=== PATIENT | female | born 1945 | race African-American/Black ===

== ENCOUNTER 2019-08-14 08:59 | Emergency (ER) | payer OTHER, MEDICARE ==
[2019-08-14 09:13] VITALS: BP 142/72; PULSE 84; TEMP 98.5; BMI 34.0
--- NOTE | 2019-08-14 09:35 | PDOC ---
History of Present Illness - General Chief Complaint: Pain, Acute Stated Complaint: RT LEG PAIN Time Seen by Provider: 08/14/19 09:34 - History of Present Illness Initial Comments: 08/14/19 09:43 The patient is a 74 year old female with a history of CAD, GERD, Diverticulitis , HTN, HLD who presents for evaluation of right lower extremity swelling and pain. The patient reports a several day history of right lower extremity redness warmth and pain that has remained persistent prompting her presentation to the ED for further evaluation. She notes lower extremity edema as well that she states is slightly worse than her normal baseline. She otherwise denies fevers, chills, SOB, chest pain, nausea, vomiting, abdominal pain, or changes with urination or bowel movements. Past History - Past Medical History Allergies/Adverse Reactions: Allergies Allergy/AdvReac Type Severity Reaction Status Date / Time Antihistamines - Alkylamine Allergy Verified 08/14/19 09:08 Iodinated Contrast Media Allergy Verified 08/14/19 09:08 [IV Dye, Iodine Containing Contrast ] Penicillins Allergy Verified 08/14/19 09:08 PAIN MEDICATIONS AdvReac Severe Vomiting Uncoded 08/14/19 09:08 Home Medications: Ambulatory Orders Allopurinol [Zyloprim -] 100 mg PO BID 01/16/12 Alprazolam [Alprazolam Odt] 0.5 mg PO PRN PRN 01/16/12 Aspirin [ASA -] 81 mg PO DAILY 01/16/12 Calcitriol 0.5 mcg PO WEEKLY 01/16/12 Calcium 250Mg/Vit-D 125 Units [Oscal 250 mg+D -] 6,000 mg PO DAILY 01/16/12 Levothyroxine [Synthroid -] 0.75 mcg PO ASDIR 01/16/12 Magnesium Oxide [Magnesium] 500 mg PO DAILY 01/16/12 Metoprolol Tartrate [Lopressor -] 50 mg PO DAILY 01/16/12 Potassium Bicarbonate/Cit AC [Potassium 25 Meq Tablet Eff] 20 meq PO DAILY 01/15 Acetaminophen [Tylenol .Extra-Strength -] 500 mg PO ASDIR PRN 03/16/14 Vit D3-Vit K/Berberine/Hops [Ostera Tablet] 1 each PO DAILY 03/16/14 Vitamin E 400 unit PO BID 03/16/14 Furosemide 80 mg PO DAILY 08/14/19 Icosapent Ethyl [Vascepa] 1 gm PO DAILY 08/14/19 Levothyroxine [Synthroid -] 150 mcg PO ASDIR 08/14/19 Pramipexole Di-HCl [Pramipexole ER] 0.75 mg PO DAILY 08/14/19 Sulfamethoxazole/Trimethoprim [Bactrim Ds -] 1 tab PO BID #14 tablet 08/14/19 Anemia: Yes (iron deficient) Asthma: No Cancer: No Cardiac Disorders: Yes CVA: No COPD: No CHF: No Dementia: No Diabetes: No GI Disorders: Yes (DIVERTICULOSIS, GERD, GASTRITIS) Disorders: No HTN: Yes Hypercholesterolemia: No Kidney Stones: Yes Liver Disease: Yes (hepatosplenomegaly, fatty liver) Seizures: No Thyroid Disease: Yes - Surgical History Abdominal Surgery: No Appendectomy: No Cardiac Surgery: No Cholecystectomy: No Lung Surgery: No Neurologic Surgery: No Orthopedic Surgery: No - Psycho Social/Smoking Cessation Hx Smoking Status: No Smoking History: Never smoked Have you smoked in the past 12 months: No Number of Cigarettes Smoked Daily: 0 Information on smoking cessation initiated: No Hx Alcohol Use: No Drug/Substance Use Hx: No Substance Use Type: None Review of Systems - Review of Systems Comments:: 08/14/19 09:45 Constitutional: No fevers, chills, fatigue, malaise HEENT: No Rhinorrhea, nasal congestion, visual changes Cardiovascular: No chest pain, syncope, palpitations, lightheadedness Respiratory: No Cough, SOB, Hemoptysis, Gastrointestinal: No Abdominal pain, Nausea, Vomiting, Constipation, Diarrhea, Melena Genitourinary: No Dysuria, Frequency, Urgency, Hesitancy, Hematuria, Flank pain Musculoskeletal: No Myalgia, arthralgia Skin: Right lower extremity redness. No rashes, itching, bruising, pallor Neurologic: No Headache, Dizziness, Numbness, Weakness, or Tingling Psychiatric: No Hallucinations. No SI or HI *Physical Exam - Vital Signs Last Vital Signs Temp Pulse Resp BP Pulse Ox 98.5 F 84 18 142/72 97 08/14/19 09:08 08/14/19 09:08 08/14/19 09:08 08/14/19 09:08 08/14/19 09:08 - Physical Exam 08/14/19 09:51 General Appearance: Nourished. No Apparent Distress HEENT: No Pharyngeal Erythema, Tonsillar Exudate, Tonsillar Erythema Neck: No Cervical Lymphadenopathy Respiratory/Chest: Lungs Clear, Normal Breath Sounds. No Crackles, Rales, Rhonchi, Wheezing Cardiovascular: Regular Rhythm, Regular Rate. No Murmur, Gallops, Rubs Gastrointestinal/Abdominal: Normal Bowel Sounds, Soft. No Guarding, Rebound, Tenderness Musculoskeletal: No CVA Tenderness Extremity: 1+ edema to the lower extremities bilaterally. Mild area of erythema and warmth to the anterior right ankle with tenderness to palpation. Normal Capillary Refill Integumentary: Normal Color, Dry, Warm Neurologic: Fully Oriented, Alert, Normal Mood/Affect, Normal Response, ED Treatment Course - LABORATORY CBC & Chemistry Diagram: 08/14/19 10:27 08/14/19 10:27 Medical Decision Making - Medical Decision Making 08/14/19 09:52 The patient is a 74 year old female with a history of CAD, GERD, Diverticulitis , HTN, HLD who presents for evaluation of right lower extremity swelling and pain. Given the patient's history and physical exam, we will obtain a duplex, cbc, cmp to evaluate further. We will continue to monitor and reassess while here in the ED. 08/14/19 11:25 CBC, cmp were unremarkable. US did not demonstrate evidence of a dvt as read by our radiologist. The patient's symptoms are likely due to a mild cellulitis. We are comfortable discharging the patient home in stable condition. Patient made aware of impression and plan, return precautions discussed including but not limited to worsening pain or symptoms, fevers, or signs of infection, chest pain, respiratory distress, inability to tolerate oral intake, dehydration, syncope, or neurologic changes. The patient is to follow up with PMD as recommended within 1 week, follow up information provided and the patient will call for an appointment. The patient is to take medications as instructed for duration of time and continue with supportive care , avoid triggers and precipitants. Patient is safe for outpatient follow-up. Discharge - Discharge Information Problems reviewed: Yes Clinical Impression/Diagnosis: Cellulitis Qualifiers: Site of cellulitis: unspecified site Qualified Code(s): L03.90 - Cellulitis, unspecified Condition: Stable Disposition: HOME - Admission No - Additional Discharge Information Prescriptions: Sulfamethoxazole/Trimethoprim [Bactrim Ds -] 1 tab PO BID #14 tablet - Follow up/Referral Referrals: Mukul Tesfaye MD [Primary Care Provider] - - Patient Discharge Instructions Patient Printed Discharge Instructions: DI for Cellulitis -- Adult Additional Instructions: 1) Please follow-up with your primary care doctor in the next 2-3 days. Please call tomorrow to schedule a follow up appointment. If you cannot follow up with your doctor within 1 week please return to the Emergency Department for any urgent issues. 2) Your laboratory / imaging results were normal here in the ER. 3) If you have any worsening of symptoms or any other concerns, please return to the ER immediately. Return if worsening symptoms including fevers, headache, vomiting, visual or hearing disturbances, abdominal pain, chest pain, shortness of breath, syncope, dehydration, inability to take things by mouth/vomiting, altered mental status, or worsening concerning symptoms. 4) Please continue taking your home medications as directed. Your medications on discharge include Bactrim . Side effects may include upset stomach, abdominal pain, vomiting, or diarrhea. Do not drink alcohol with your medications. - Post Discharge Activity
--- NOTE | 2019-08-14 09:47 | PDOC ---
Attending Attestation - Resident Resident Name: Landon Garcia - ED Attending Attestation I have performed the following: I have examined & evaluated the patient, The case was reviewed & discussed with the resident, I agree w/resident's findings & plan, Exceptions are as noted - HPI HPI: 08/14/19 09:45 74y F hx of htn, hl, MGUS, cad, gerd, diverticulitis, presents with 1 week of RLE swelling/redness and pain. Pt has swelling at baseline, but notes the swelling is worse now. denies any fever/chills, cp, sob, cough, hemoptysis, flores. Pt denies any trauma. Pt notes there is a spot of redness on the anterior justice that has not changed in the past week. Pt notes it is mildly tender in the red area. Denies any calf pain or tendereness. Exam: GENERAL: The patient is awake, alert, and fully oriented, Nontoxic - in no acute distress. HEAD: Normocephalic, atraumatic. EYES: extraocular movements intact, sclera anicteric, conjunctiva clear. ENT: Normal voice, Moist mucous membranes. NECK: Normal range of motion, supple LUNGS: Breath sounds equal, clear to auscultation bilaterally. No wheezes, no rhonchi, no rales. HEART: Regular rate and rhythm, normal S1 and S2 without murmur, rub or gallop. ABDOMEN: Soft, nontender, No guarding, no rebound. No CVA tenderness EXTREMITIES: Normal range of motion, b/l symmetric trace pitting edema, approximately 2 x 2 centimeter area of erythema and very mildly increased warmth on the medial aspect of the right lower anterior justice, there is no crepitus, fluctuance, masses, step-offs, bruising noted. Negative homans sign. no tenderness elsewhere. NEUROLOGICAL: No facial assymetry, Normal speech, moving all 4 extremities spontaneously and symmetrically PSYCH: Normal mood, normal affect. SKIN: Warm, Dry, normal turgor, I suspect that her symptoms may be secondary to a very mild cellulitis versus mild trauma. Based on her age will obtain ultrasound to screen for DVT as there is slight edema, no clinical signs suspicious for PE. If ultrasound is negative we will give the patient Keflex Will have patient follow-up with PMD - Physicial Exam PE: 08/14/19 11:39 see above - Medical Decision Making 08/14/19 11:39 The patient's blood work was reviewed The patient's ultrasound is negative for DVT We will discharge the patient with oral antibiotics and PMD follow-up Return precautions were discussed I discussed the physical exam findings, ancillary test results and final diagnoses with the patient. I answered all of the patient's questions. The patient was satisfied with the care received and felt comfortable with the discharge plan and treatment plan. The patient will call their primary care physician within 24 hours to arrange follow-up and will return to the Emergency Department with any new, persistent or worsening symptoms.
[2019-08-14 10:55] LABS: BASO % 0.2 % (0-2.0); EOS % 1.2 % (0-4.5); HEMOGLOBIN 10.8 GM/dL (10.7-15.3); MCH 33.3 pg (25.7-33.7); MCHC 33.8 g/dl (32.0-36.0); MEAN CELL VOLUME 98.5 fl (80-96); MEAN PLT VOLUME 8.4 fl (7.5-11.1); MONO % 8.5 % (3.8-10.2); NEUT % 64.1 % (42.8-82.8); PLATELET COUNT 192 K/MM3 (134-434); RBC 3.25 M/mm3 (3.60-5.2); RDW 15.2 % (11.6-15.6); WHITE BLOOD COUNT 5.6 K/mm3 (4.0-10.0)
[2019-08-14 11:22] LABS: ALBUMIN 3.2 g/dl (3.4-5.0); BILIRUBIN,TOTAL 0.9 mg/dL (0.2-1); BLOOD UREA NITROGEN 28.6 mg/dL (7-18); CALCIUM 9.2 mg/dL (8.5-10.1); CREATININE 0.9 mg/dL (0.55-1.3); POTASSIUM 4.2 mmol/L (3.5-5.1); TOT PROT 6.9 g/dl (6.4-8.2)
== END 2019-08-14 11:48 | disposition home or self-care (01) ==
LOC: JER 08:59
DX: L03.115 Cellulitis of right lower limb (principal); I25.10 Atherosclerotic heart disease of native coronary artery without angina pectoris; I10 Essential (primary) hypertension; E78.5 Hyperlipidemia, unspecified; K21.9 Gastro-esophageal reflux disease without esophagitis; D47.2 Monoclonal gammopathy; Z91.041 Radiographic dye allergy status; Z88.0 Allergy status to penicillin; Z88.6 Allergy status to analgesic agent
CPT/HCPCS: 36415; 80053; 85025; 93971-TC; 99284-25

== ENCOUNTER 2020-01-18 06:59 | Inpatient (IN) | payer OTHER, MEDICARE ==
[2020-01-07 12:31] VITALS: BMI 35.9
[2020-01-18] MEDS ORDERED: TRANEXAMIC ACID 1000 MG/10 ML VIAL IVPUSH ONE (07:10)
[2020-01-18] MEDS ORDERED: CELECOXIB 200 MG CAPSULE PO ONE (07:10)
[2020-01-18] MEDS ORDERED: CEFAZOLIN 3 GM in DEXTROSE 5%-WATER - 100 ML IVPB ONE (07:10)
[2020-01-18] MEDS ORDERED: VANCOMYCIN 1,000 MG VIAL (RESTRICTED TO ID ONLY) ONE (07:23)
[2020-01-18] MEDS ORDERED: ceFAZolin SODIUM 1 GM VIAL ONE ×3 (07:23→17:33)
--- NOTE | 2020-01-18 08:01 | HP ---
[facility]ellite [facility] - Chief Complaint Chief Complaint: left hip pain - Past Medical History Allergies/Adverse Reactions: Allergies Allergy/AdvReac Type Severity Reaction Status Date / Time Antihistamines - Alkylamine Allergy Verified 01/18/20 07:30 Iodinated Contrast Media Allergy Verified 01/18/20 07:30 [IV Dye, Iodine Containing Contrast ] Penicillins Allergy Verified 01/18/20 07:30 PAIN MEDICATIONS AdvReac Severe Vomiting Uncoded 01/18/20 07:30 - Current Medications Current Medications: Home Medications Medication Instructions Recorded Allopurinol [Zyloprim -] 100 mg PO BID 01/16/12 Alprazolam [Alprazolam Odt] 0.5 mg PO PRN PRN 01/16/12 Aspirin [ASA -] 81 mg PO DAILY 01/16/12 Calcitriol 0.5 mcg PO ASDIR 01/16/12 Calcium 250Mg/Vit-D 125 Units 3 tab PO QID 01/16/12 [Oscal 250 mg+D -] Levothyroxine [Synthroid -] 150 mcg PO ASDIR 01/16/12 Magnesium Oxide [Magnesium] 500 mg PO BID 01/16/12 Potassium Bicarbonate/Cit AC 20 meq PO BID 01/16/12 [Potassium 25 Meq Tablet Eff] Acetaminophen [Tylenol 500 mg PO ASDIR PRN 03/16/14 .Extra-Strength -] Levothyroxine [Synthroid -] 175 mcg PO ASDIR 08/14/19 Pramipexole Di-HCl [Pramipexole ER] 0.75 mg PO DAILY 08/14/19 Cyanocobalamin Vit B-12 Inj. 1,000 mcg IJ WEEKLY 01/07/20 [Redisol] Metoprolol Succinate 50 mg PO BID 01/07/20 Pramipexole Di-HCl [Mirapex ER] 1.5 mg PO HS 01/07/20 Pyridoxine HCl (B-6) [Vitamin B6] 100 mg PO DAILY 01/07/20 Torsemide 100 mg PO DAILY 01/07/20 Satellite Physical Exam - Physical Examination Vital Signs: Vital Signs Period Temp Pulse Resp BP Sys/Rubalcava Pulse Ox Last 24 Hr 98.7 F 82 18 126/60 97-97 General Appearance: Well Nourished, Well Developed, Alert & Oriented x3 ENT: Clear Lung: Normal air movement Extremities: Other (left hip - +ttp, decr rom, nvi, xrays show grade 4 hip djd) Neurological: Intact, Alert, Oriented Satellite Impression/Plan - Impression/Plan Impression: left hip djd Operative Procedure: left bobbi thr Date to be Performed: 01/18/20
[2020-01-18] MEDS ORDERED: MIDAZOLAM HCL 2 MG/2 ML SINGLE DOSE VIAL ONE ×3 (08:09→10:23)
[2020-01-18] MEDS ORDERED: DEXAMETHASONE SOD PHOSPHATE 4 MG/1 ML VIAL ONE (08:10)
[2020-01-18] MEDS ORDERED: BUPIVACAINE HCL/PF 0.5% (5MG/ML) 10 ML VIAL ONE ×2 (08:11→09:18)
[2020-01-18] MEDS ORDERED: ALPRAZOLAM 0.5 MG PO PRN (09:29)
[2020-01-18] MEDS ORDERED: LACTATED RINGERS SOLUTION 1,000 ML IV SCH ×2 (09:30→11:30)
[2020-01-18] MEDS ORDERED: ONDANSETRON 4 MG/2 ML VIAL IVPUSH PRN ×2 (09:30→11:20)
[2020-01-18] MEDS ORDERED: LEVOTHYROXINE NA 150 MCG TABLET PO SCH (09:30)
[2020-01-18] MEDS ORDERED: MAGNESIUM HYDROX 2400MG/30ML ORAL SUSPENSION 30 ML CUP PO PRN (09:30)
[2020-01-18] MEDS ORDERED: MAG HYDROX/AL HYDROX/SIMETH 30 ML UNIT-DOSE CUP PO PRN (09:30)
[2020-01-18] MEDS ORDERED: PROPOFOL 20 ML ONE (09:36)
[2020-01-18] MEDS ORDERED: SUCCINYLCHOLINE CHLORIDE 200 MG/10 ML SYRINGE ONE (09:36)
[2020-01-18] MEDS ORDERED: ePHEDrine SULFATE 50 MG/1 ML AMPULE ONE (09:46)
[2020-01-18] MEDS ORDERED: PHENYLEPHRINE HCL 10 MG/1 ML SINGLE DOSE VIAL ONE ×2 (09:48→09:49)
[2020-01-18] MEDS ORDERED: PATIENT'S OWN MEDICATION (NON-FORMULARY) (Magnesium Oxide [Magnesium] 500 MG) PO SCH (10:00)
[2020-01-18] MEDS ORDERED: [UNRECOGNIZED DRUG - OTHER] PO SCH (10:00)
[2020-01-18] MEDS ORDERED: PATIENT'S OWN MEDICATION (NON-FORMULARY) (Pramipexole Di-Hcl [Pramipexole Er] 0.75 MG) PO SCH (10:00)
[2020-01-18] MEDS ORDERED: TORSEMIDE 100 MG TABLET PO SCH (10:00)
[2020-01-18] MEDS ORDERED: TRANEXAMIC ACID 1000 MG/10 ML VIAL ONE (10:25)
[2020-01-18] MEDS ORDERED: VANCOMYCIN 1,000 MG VIAL (RESTRICTED TO ID ONLY) IVPB ONE (10:30)
[2020-01-18] MEDS ORDERED: oxyCODONE HCL 5 MG TABLET PO PRN (11:20)
[2020-01-18] MEDS: ACETAMINOPHEN 1000 MG/100 ML VIAL (NON FORMULARY) IVPB ONE ×2 (11:55→18:27)
--- NOTE | 2020-01-18 12:10 | OP ---
Operative Note - Note: Operative Date: 01/18/20 (jo-ann) Pre-Operative Diagnosis: left hip djd Operation: left bobbi thr Post-Operative Diagnosis: Same as Pre-op Surgeon: Orlando Castillo Teller Supervisor: Otis Harry Anesthesia: Spinal, Local Specimens Removed: femoral head, bone marrow aspirate Estimated Blood Loss (mls): 150
[2020-01-18] MEDS ORDERED: ALPRAZolam 0.25 MG TABLET PO PRN (12:40)
[2020-01-18] MEDS: oxyCODONE HCL 5 MG TABLET PO PRN ×2 (14:02→17:42)
[2020-01-18] MEDS ORDERED: DEXTROSE 5%-WATER 100 ML IVPB ONE (17:33)
[2020-01-18] MEDS: CEFAZOLIN 3 GM in DEXTROSE 5%-WATER 100 ML IVPB SCH (17:41)
[2020-01-18] MEDS: ACETAMINOPHEN 325 MG TABLET (FP) PO SCH ×2 (17:42→23:49)
[2020-01-18] MEDS: LEVOTHYROXINE 100 MCG, LEVOTHYROXINE 75 MCG PO SCH (18:28)
[2020-01-18] MEDS: PRAMIPEXOLE DIHYDROCHLORIDE 1 MG TABLET PO SCH (21:18)
[2020-01-18] MEDS: MAGNESIUM OXIDE 400 MG TABLET (FP) PO SCH (21:18)
[2020-01-18] MEDS: oxyCODONE HCL 10 MG SUSTAINED ACTING TABLET PO SCH (21:20)
[2020-01-18] MEDS: ALLOPURINOL 100 MG TABLET (FP) PO SCH (21:21)
[2020-01-18] MEDS: SENNOSIDES/DOCUSATE COMBO (SENNA PLUS) TABLET (UD) PO SCH (21:22)
[2020-01-18] MEDS ORDERED: PRAMIPEXOLE DI HCL 1.5 MG PO SCH (22:00)
[2020-01-19] MEDS ORDERED: ceFAZolin SODIUM 1 GM VIAL ONE (04:34)
[2020-01-19] MEDS ORDERED: DEXTROSE 5%-WATER 100 ML IVPB ONE (04:35)
[2020-01-19] MEDS: CEFAZOLIN 3 GM in DEXTROSE 5%-WATER 100 ML IVPB SCH (04:39)
[2020-01-19] MEDS: ACETAMINOPHEN 325 MG TABLET (FP) PO SCH ×4 (06:32→23:07)
[2020-01-19] MEDS ORDERED: LEVOTHYROXINE NA 75 MCG TABLET (FP) ONE (06:34)
[2020-01-19] MEDS ORDERED: LEVOTHYROXINE NA 100 MCG TABLET (FP) ONE (06:34)
[2020-01-19] MEDS: LEVOTHYROXINE 100 MCG, LEVOTHYROXINE 75 MCG PO SCH (06:35)
[2020-01-19] MEDS: PRAMIPEXOLE DIHYDROCHLORIDE 0.25 MG TABLET PO SCH (06:35)
[2020-01-19 07:50] LABS: HEMATOCRIT 26.6 % (32.4-45.2); HEMOGLOBIN 9.3 GM/dl (10.7-15.3); MCHC 34.7 g/dl (32.0-36.0); MEAN PLT VOLUME 7.9 fl (7.5-11.1); PLATELET COUNT 156 K/MM3 (134-434); RBC 2.72 M/mm3 (3.60-5.2); RDW 14.4 % (11.6-15.6); WHITE BLOOD COUNT 8.9 K/mm3 (4.0-10.8)
[2020-01-19] MEDS: ASPIRIN 325 MG TABLET PO SCH (08:05)
[2020-01-19] MEDS ORDERED: PT OWN MED DRAWER 7, Y5N ONE (10:27)
[2020-01-19] MEDS: TORSEMIDE 100 MG TABLET PO SCH (10:33)
[2020-01-19] MEDS: POTASSIUM CHLORIDE TABS 20 MEQ TABLET.ER (FP) PO SCH ×2 (10:33→21:04)
[2020-01-19] MEDS: ALLOPURINOL 100 MG TABLET (FP) PO SCH ×2 (10:34→21:09)
[2020-01-19] MEDS: SENNOSIDES/DOCUSATE COMBO (SENNA PLUS) TABLET (UD) PO SCH ×2 (10:34→21:04)
[2020-01-19] MEDS: MULTIVITAMINS (DAILY MVI) TABLET (FP) PO SCH (10:34)
[2020-01-19] MEDS: MAGNESIUM OXIDE 400 MG TABLET (FP) PO SCH ×2 (10:34→21:04)
[2020-01-19] MEDS: oxyCODONE HCL 10 MG SUSTAINED ACTING TABLET PO SCH ×2 (10:34→21:05)
--- NOTE | 2020-01-19 11:06 | PN ---
Progress Note (short form) - Note Progress Note: Ortho Pt seen and examined s/p left bobbi thr pod #1 Selected Entries 01/19/20 06:00 Temperature 97.7 F Pulse Rate 73 Respiratory 18 Rate Blood Pressure 132/47 L Laboratory Tests 01/19/20 07:10 WBC 8.9 Hgb 9.3 L Hct 26.6 L Plt Count 156 Dressing c/d/i, calf soft, nt nvi a/p PT hip precautions dvt ppx pain control d/c home tomorrow if stable
--- NOTE | 2020-01-19 12:30 | SPEC ---
DATE OF OPERATION: 01/18/2020 PREOPERATIVE DIAGNOSIS: Degenerative joint disease left hip. POSTOPERATIVE DIAGNOSIS: Degenerative joint disease left hip. PROCEDURE PERFORMED: Left total hip replacement with robotic-assisted navigation (MAKOplasty). SURGICAL ATTENDING: Orlando Castillo MD STATISTICAL TYPIST: AJ Cruz ANESTHESIA: Regional and spinal. CLOSURE: Tony total hip components with a 50 press-fit Trident II acetabular shell, a number 4 Accolade II press-fit femoral stem, a +3 MDM head and liner, number 1 Vicryl for fascia, 0 and 2-0 subcutaneous, 3-0 V-Loc for skin, 4-0 undyed Vicryl for pin sites. ESTIMATED BLOOD LOSS: Less than 100 mL. COMPLICATIONS: None. CONDITION: To the recovery room in stable condition. DESCRIPTION OF PROCEDURE: The patient was taken to the operating room on January 18, 2020. General and regional anesthesia was administered by the anesthesiologist. IV Kefzol and TXA were administered prophylactically prior to the case. The patient was placed in the lateral decubitus position will all prominences well-padded. The left hip area was prepped and draped in the usual sterile fashion. Using 3 small stab incisions over the iliac crest, 3 threaded pins were drilled in power fashion through the 2 tables of the crest. These pins were fastened and the navigation array for the Zay navigation system. Next, a 12 to 15-cm curved longitudinal incision over the posterolateral aspect of the greater trochanter was incised. Hemostasis was achieved with Bovie cautery. Sharp dissection was carried down to level of the fascia. The fascia was opened the entire length of the incision, spreading the fibers of the gluteus juan in the direction of origin. A Charnley retractor was placed in this layer. Care was taken not to impale the sciatic nerve. The short external rotators were detached off the insertion of the greater trochanter and peeled off the capsule. A posterior capsulotomy was then performed. A check point was malleted into the greater trochanter and a point on the inferior pole of the patella was obtained as well. These 2 points were used to assess the preoperative offset and limb lengths of the hip. The hip was then dislocated. The femoral neck was then osteotomized down to the appropriate level as directed by the navigation device. Anterior and posterior retractors were placed, exposing the acetabulum. A circumferential labral excision was performed. A check point was malleted into the acetabulum as well. Multiple sites inside the acetabulum and around the rim were utilized to register the acetabulum with the navigation device. An excellent registration of less than 0.5 mm was obtained. The hip was then reamed with the appropriate reamer down to the appropriate depth, with the appropriate orientation and version as assessed on our preoperative plan for this patient. The reamer was removed and the acetabulum was inspected to have good bleeding surfaces throughout. The real acetabular cup was then malleted down into place, with the holes in the appropriate position, until an excellent fixation was obtained. No screws were necessary. The navigation device ensured appropriate orientation and version, with the depth as predetermined. The appropriate liner was then clipped into place. Attention was directed to the femur. The proximal femur was prepared by use a box chisel, a canal finder and serial broaches until the broach achieved excellent rigidity in the proximal femur with the appropriate version being applied. A calcar planer was used to smooth off the calcar flush with the trial components. A trial reduction with the appropriate head was done, and the hip was reduced. The hip was taken through a range of motion from full extension with external rotation to marked flexion, and was stable at 90 degrees of flexion. It was stable to marked abduction and internal rotation, with a positive hang test and negative telescoping. Limb lengths were ascertained visually as well as with the navigation device to be within the targeted range for this patient. The trial component was removed. The real component was then malleted into place. The head was cold welded to the trunnion, and the hip was reduced. Range of motion, stability and limb lengths were as described in the trial component. Then the hip was pulse antibiotic irrigated. Vancomycin powder was placed in the hip joint. The capsule was closed. The fascia was then closed as well using number 1 Vicryl interrupted suture, 0 and 2-0 subcutaneous, and 3-0 V-Loc for the skin. 4-0 undyed Vicryl was used to close the pin sites after the pins were removed. All check points were also removed. Sterile Aquacel dressing was applied. The patient was awakened from anesthesia and transferred into the supine position. Bilateral SCDs and an abduction pillow were placed. X-rays revealed excellent position of the components. The patient was transferred to the recovery room in stable condition, with no complications. Estimated blood loss was less than 100 mL. Tila [id number]
--- NOTE | 2020-01-19 14:11 | PN ---
Progress Note (short form) - Note Progress Note: Pt pod #1 for Left THR under spinal plus pnb. Pt doing well -- c/o occasional throbbing pain, but able to participate w/ PT. Continue po pain meds, no complications 2/2 anesthesia.
[2020-01-19] MEDS: PRAMIPEXOLE DIHYDROCHLORIDE 1 MG TABLET PO SCH (21:03)
[2020-01-19] MEDS: traMADol HCL 50 MG TABLET PO PRN (21:05)
[2020-01-20] MEDS: ACETAMINOPHEN 325 MG TABLET (FP) PO SCH ×2 (05:06→12:00)
[2020-01-20] MEDS: traMADol HCL 50 MG TABLET PO PRN ×2 (05:06→09:32)
[2020-01-20] MEDS ORDERED: LEVOTHYROXINE NA 75 MCG TABLET (FP) ONE (05:12)
[2020-01-20] MEDS ORDERED: LEVOTHYROXINE NA 100 MCG TABLET (FP) ONE (05:12)
[2020-01-20] MEDS: LEVOTHYROXINE 100 MCG, LEVOTHYROXINE 75 MCG PO SCH (06:13)
[2020-01-20] MEDS: PRAMIPEXOLE DIHYDROCHLORIDE 0.25 MG TABLET PO SCH (06:13)
[2020-01-20 07:39] LABS: HEMATOCRIT 28.7 % (32.4-45.2); HEMOGLOBIN 9.5 GM/dl (10.7-15.3); MCH 32.9 pg (25.7-33.7); MCHC 33.1 g/dl (32.0-36.0); MEAN CELL VOLUME 99.4 fl (80-96); MEAN PLT VOLUME 7.9 fl (7.5-11.1); PLATELET COUNT 184 K/MM3 (134-434); RBC 2.89 M/mm3 (3.60-5.2); WHITE BLOOD COUNT 8.6 K/mm3 (4.0-10.8)
[2020-01-20] MEDS: ASPIRIN 325 MG TABLET PO SCH (08:05)
--- NOTE | 2020-01-20 08:09 | PN ---
Progress Note (short form) - Note Progress Note: Ortho Pt seen and examined s/p left bobbi thr pod #2 Selected Entries 01/20/20 05:00 Temperature 97.7 F Pulse Rate 77 Respiratory 17 Rate Blood Pressure 110/43 L Laboratory Tests 01/20/20 07:05 WBC 8.6 Hgb 9.5 L Hct 28.7 L Plt Count 184 Dressing c/d/i, calf soft, nt nvi a/p PT hip precautions dvt ppx pain control d/c home today f/u in 1 week
--- NOTE | 2020-01-20 08:10 | DS ---
Physical Examination Vital Signs: Vital Signs Temperature 97.7 F 01/20/20 05:00 Pulse Rate 77 01/20/20 05:00 Respiratory Rate 17 01/20/20 05:00 Blood Pressure 110/43 L 01/20/20 05:00 O2 Sat by Pulse Oximetry (%) 96 01/20/20 05:00 Labs: CBC, BMP 01/20/20 07:05 Discharge Summary Problems reviewed: Yes Reason For Visit: OSTEOARTHRITIS Procedures: Principal: left thr Hospital Course: admitted for elective left bobbi thr, post-op per protocol, stable for d/c Condition: Good - Instructions Diet, Activity, Other Instructions: Post-op Instructions-Total Hip Replacement Call the office for a follow-up appointment in 1 week - [phone] Aspirin 325mg daily for 6 weeks. Pain medication was sent into your pharmacy. Apply Graduated Compression Stockings (TEDs) to both lower extremities- remove daily for hygiene ONLY Apply Sequential Compression Device (SCDs) to both Lower extremities remove for PT and hygiene ONLY Apply cold packs to affected area for 15 minutes every 2 hours. Physical Therapist will come to your home for the first 5 days. You will be set up with outpatient PT at your first post-operative visit. Patient may ambulate as tolerated-encourage self care (at least every 2-3 hours while awake) with walker or cane Maintain Aquacel (waterproof) dressing to operative wound (will be removed by surgeon at first office visit) Shower with Aquacel dressing in place-if Aquacel integrity compromised, remove and apply dry sterile dressing and notify Orthopedist. DO NOT SHOWER unless Orthopedists approves without Aquacel dressing CONTACT THE OFFICE FOR ANY CHANGE IN YOUR CONDITION (for example-fever greater than 102 degrees, excessive bleeding from operative site, purulent drainage, severe swelling or pain) GO TO THE EMERGENCY ROOM IF THERE IS A MEDICAL EMERGENCY Hip Precautions: * Keep a rolled towel under affected heel while in bed or chair (to keep knee in extension) * Dependent upon approach: * Posterior - do not cross legs; do not sit on low chairs or toilets. * If you have any questions, please do not hesitate to call the office - [phone]. Referrals: Orlando Castillo MD [Staff Physician] - Disposition: VNS/HOME HEALTH CARE - Home Medications Comprehensive Discharge Medication List: Ambulatory Orders Allopurinol [Zyloprim -] 100 mg PO BID 01/16/12 Alprazolam [Alprazolam Odt] 0.5 mg PO PRN PRN 01/16/12 Calcitriol 0.5 mcg PO ASDIR 01/16/12 Calcium 250Mg/Vit-D 125 Units [Oscal 250 mg+D -] 3 tab PO QID 01/16/12 Levothyroxine [Synthroid -] 150 mcg PO ASDIR 01/16/12 Magnesium Oxide [Magnesium] 500 mg PO BID 01/16/12 Potassium Bicarbonate/Cit AC [Potassium 25 Meq Tablet Eff] 20 meq PO BID 01/16/12 Acetaminophen [Tylenol .Extra-Strength -] 500 mg PO ASDIR PRN 03/16/14 Levothyroxine [Synthroid -] 175 mcg PO ASDIR 08/14/19 Pramipexole Di-HCl [Pramipexole ER] 0.75 mg PO DAILY 08/14/19 Cyanocobalamin Vit B-12 Inj. [Vitamin B12 Injection -] 1,000 mcg IJ WEEKLY 01/07/20 Metoprolol Succinate 50 mg PO BID 01/07/20 Pramipexole Di-HCl [Mirapex ER] 1.5 mg PO HS 01/07/20 Pyridoxine HCl (B-6) [Vitamin B6 -] 100 mg PO DAILY 01/07/20 Torsemide 100 mg PO DAILY 01/07/20 Aspirin [ASA -] 325 mg PO DAILY@0800 tablet 01/20/20 Tramadol HCl 50 mg PO Q6H #50 tablet MDD 4 01/20/20
[2020-01-20 09:25] VITALS: BP 98/47; PULSE 60; TEMP 98
[2020-01-20] MEDS: TORSEMIDE 100 MG TABLET PO SCH (09:32)
[2020-01-20] MEDS: POTASSIUM CHLORIDE TABS 20 MEQ TABLET.ER (FP) PO SCH (09:32)
[2020-01-20] MEDS: MAGNESIUM OXIDE 400 MG TABLET (FP) PO SCH (09:33)
[2020-01-20] MEDS: oxyCODONE HCL 10 MG SUSTAINED ACTING TABLET PO SCH (09:34)
[2020-01-20] MEDS: SENNOSIDES/DOCUSATE COMBO (SENNA PLUS) TABLET (UD) PO SCH (09:34)
[2020-01-20] MEDS: MULTIVITAMINS (DAILY MVI) TABLET (FP) PO SCH (09:35)
[2020-01-20] MEDS: ALLOPURINOL 100 MG TABLET (FP) PO SCH (09:35)
[2020-01-22] MEDS ORDERED: LEVOTHYROXINE NA 150 MCG TABLET PO SCH (07:00)
--- NOTE | 2020-01-28 18:10 | PATH ---
Surgical Pathology Report Patient Name: DAVID OBRIEN Med. Rec. #: [id number] /Age/Gender: 1945 (Age: 74) / F Account: [id number] Location: [facility] Taken: 01/18/2020 Received: 01/18/2020 Reported: 01/28/2020 Physicians: Orlando Castillo M.D. Specimen(s) Received A: LEFT FEMORAL HEAD B: BONE MARROW Clinical History Evaluate for plasma cell dysplasia Final Diagnosis A. 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 LYMPHOID AGGREGATES COMPOSED MOSTLY OF T CELLS CONSISTENT WITH A REACTIVE PROCESS. SEE PART B. COMMENT: CD138 shows an variable plasma cell infiltrate accounting for approximately 5-10% of the marrow cellularity. A few lymphoid aggregates composed of small lymphocytes are present. Immunostains show mostly T cells with only rare B cells consistent with a reactive process. Please see separate report for additional information regarding block B. In summary, the overall findings are not diagnostic for lymphoma and favor reactive. This case was sent to Dr. Sunny Almazan from [place], [place] ([id number]) the hemepath diagnosis above reflects his opinion. [place]OM[place] [facility] [place][id number] shows the following: INTERPRETATION: A small population of monoclonal IgG kappa plasma cells (<1%) is observed in the sample analyzed by flow cytometry. Comment: Due to hypocellularity only a limited study was possible. Correlation with morphologic evaluation of the original tissue sections and other relevant laboratory studies is recommended. Phenotype: A monoclonal IgG kappa plasma cell (CD38 bright) population is present (<1%) B. Bone marrow aspirate, femORAL left head, biopsy: PLASMA CELL DYSCRASIA (IGG KAPPA), SEE COMMENT. COMMENT: H&E stained sections show a cellular marrow (50%) with maturing trilineage hematopoiesis. There is an interstitial plasma cell filtrate forming clusters accounting for 5-10% of the marrow cellularity. The plasma cells express monoclonal kappa and are positive for CD56 by immunostains. No significant lymphoid infiltrate is observed. Granulocytic series shows complete maturation to segmented neutrophils. There is no increase in mononuclear blast-like cells noted. Megakaryocytes are adequate in number and do not exhibit cytologic atypia. The findings correlate with flow cytometric analysis (see separate report) and are consistent with plasma cell dyscrasia. Correlation with relevant clinical, laboratory (e.g., monoclonal protein type and amount) and radiologic imaging data will be necessary for complete interpretation. This case was sent to Dr. Sunny Almazan from [place], [place] ([id number]) the diagnosis above reflects his opinion. FL[place]TOMETRY [place] [facility] [place][id number] shows the following: INTERPRETATION: A small population of monoclonal IgG kappa plasma cells (4%) is observed in the sample analyzed by flow cytometry. Phenotype: A monoclonal IgG kappa plasma cell (CD38 bright) population is present. CD56 and Cd117 are positive. The B-cells (<1% of total) appear polytypic. FLUORESCENCE IN-SITU HYBRIDIZATION performed and interpreted at [place], [place] shows the following: INTERPRETATION: Multiple Myeloma panel: 1. Positive for 3 copies of 1q21 including CKS1B (42.0% of cells), consistent with plasma cell neoplasm (PCN). An extra copy of 1q21 (CKS1B) is considered to be an adverse prognostic indicator associated with an inferior event-free survival and overall survival. Progressive 1q21 amplification may occur in persistent and recurrent myeloma, including clonal expansion and further increase in 1q21 copy number. Repeat FISH testing should be considered in relapsed myeloma and patients with poor response to therapy. 2. Positive for trisomy 7 (27.0% of cells). 3. Positive for trisomy 9 (60.0% of cells). 4. Positive for trisomy and (35.0% and 19.0% of cells, respectively). 5. Positive for monosomy 13 (82.0% of cells). 6. Negative for a t(11;14)/CCND1-IGH rearrangement. Three copies of CCND1 were observed in 67.0% of cells. 7. Negative for a t(4;14)/FGFR3-IGH rearrangement. 8. Negative for a t(14;16)/IGH-MAF rearrangement. 9. Negative for a deletion of TP53 on the short arm of chromosome 17 at p13. 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 Electronically Signed Lindsay Whitlock M.D. Addendum Reported: 02/01/2020 Addendum Diagnosis CHROMOSOME ANALYSIS performed and interpreted at [facility], [place], [place] (Specimen #: [id number]) shows the following: RESULTS: 46, XX [20] Female karyotype INTERPRETATION: Normal female chromosome complement observed in all cells examined. There was no evidence of a chromosome abnormality within the limits of the technology utilized. Please note concurrent FISH results. The previous cytogenetic report for this patient was reviewed for correlation with this study. See [facility] report for additional details. Lindsay Whitlock M.D. Gross Description A. Received in formalin, labeled "left femoral head," is a 4.5 cm. femoral head with 2 x 3.5 cm femoral neck. The margin of resection is smooth. Focal areas of eburnation are identified measuring 3 x 2.5 cm. The remaining articular surface is smooth. The underlying trabecular bone is yellow and hard with focal areas of stippled hemorrhage in the femoral neck. Adherent soft tissue measures 1 x 0.7 cm. No masses are grossly identified. [employer] sections are placed in RPMI and sent for flow cytometry. [employer] E[employer]er sections are submitted in 3 cassettes after decalcification, as follows: 1-2 femoral head; 3- femoral neck with hemorrhage and adherent soft tissue. B. Received labelled with the patient's name is 1 green top and 1 lavender top tubes of bone marrow aspirate. The lavender top has blood clot aggregate. No definitive bone is identified. The blood clot is submitted entirely in 1 casette after brief decalcification. The tubes are forwarded to [facility] for ancillary testing. MLSManjit/01/18/2020 sankim/01/18/2020
== END 2020-01-20 14:29 | disposition home health service (06) | DRG 470 ==
LOC: FM/S 06:59
PROVIDERS: ADMIT Orthopaedic Surgery; ATTEND Orthopaedic Surgery
PROC: 8E0W0CZ Robotic Assisted Procedure of Trunk Region, Open Approach (ICD-10-PCS; 2020-01-18)
PROC: 0SRB0JA Replacement of Left Hip Joint with Synthetic Substitute, Uncemented, Open Approach (ICD-10-PCS; principal; 2020-01-18 09:56)
DX: M16.12 Unilateral primary osteoarthritis, left hip (principal)
CPT/HCPCS: 36415; 73502-TC-LT-FY; 85027; 88305-TC; 88311-TC; 94760; 97116-GP; 97162-GP; J0131

== ENCOUNTER 2020-06-29 17:01 | Inpatient (IN) | payer OTHER, MEDICARE ==
[2020-06-29] MEDS ORDERED: ACETAMINOPHEN 1000 MG/100 ML VIAL (NON FORMULARY) IVPB ONE (18:16)
[2020-06-29] MEDS ORDERED: LACTATED RINGERS SOLUTION 1,000 ML IV STA ×2 (18:16→18:55)
[2020-06-29] MEDS ORDERED: SODIUM CHLORIDE 0.9% 500 ML INFUS.BAG IV ONE (18:17)
[2020-06-29] MEDS ORDERED: ACETAMINOPHEN INJECTION 100 ML IVPB ONE (18:27)
[2020-06-29] MEDS ORDERED: AZITHROMYCIN IVPB 500 MG in DEXTROSE 5%-WATER - 250 ML IVPB ONE (18:51)
[2020-06-29] MEDS ORDERED: CEFTRIAXONE 1 GM in DEXTROSE 5%-WATER - 100 ML IVPB ONE (18:52)
[2020-06-29 19:22] LABS: BASO % 0.1 % (0-2.0); HEMATOCRIT 23.9 % (32.4-45.2); HEMOGLOBIN 8.2 GM/dL (10.7-15.3); LYMPH % 14.2 % (8-40); MCH 35.4 pg (25.7-33.7); MCHC 34.3 g/dl (32.0-36.0); MEAN CELL VOLUME 103.1 fl (80-96); MEAN PLT VOLUME 8.8 fl (7.5-11.1); NEUT % 75.7 % (42.8-82.8); PLATELET COUNT 190 K/MM3 (134-434); RBC 2.32 M/mm3 (3.60-5.2); RDW 17.3 % (11.6-15.6); WHITE BLOOD COUNT 3.4 K/mm3 (4.0-10.0)
[2020-06-29 19:29] LABS: INR 1.21 (0.83-1.09); PROTHROMBIN TIME (PATIENT) 14.6 SEC (9.7-13.0)
[2020-06-29] MEDS ORDERED: AZITHROMYCIN IVPB 500 MG/250 ML BAG IVPB ONE (19:33)
[2020-06-29 19:45] LABS: POTASSIUM 3.8 mmol/L (3.5-5.1); VENOUS BASE EXCESS 3.7 mmol/L (-2-2); VENOUS O2 SATURATION 97.6 % (70-80); VENOUS PCO2 27.1 mmHg (38-52); VENOUS PH 7.583 (7.310-7.410)
[2020-06-29 19:47] LABS: ALBUMIN 2.6 g/dl (3.4-5.0); CALCIUM 7.3 mg/dL (8.5-10.1)
[2020-06-29 19:48] LABS: BLOOD UREA NITROGEN 15.8 mg/dL (7-18); MAGNESIUM 2.3 mg/dL (1.8-2.4)
[2020-06-29 19:50] LABS: BILIRUBIN,DIRECT 0.2 mg/dL (0.0-0.2)
[2020-06-29 19:51] LABS: CREATININE 1.3 mg/dL (0.55-1.3)
[2020-06-29 19:52] LABS: BILIRUBIN,TOTAL 0.4 mg/dL (0.2-1); TOT PROT 6.1 g/dl (6.4-8.2)
[2020-06-29] MEDS ORDERED: DEXAMETHASONE SOD PHOSPHATE 4 MG/1 ML VIAL IVPUSH ONE (20:16)
[2020-06-29] MEDS ORDERED: CEFTRIAXONE 1 GM/50 ML BAG ONE (21:10)
[2020-06-29] MEDS ORDERED: DEXAMETHASONE SOD PHOSPHATE 10 MG/1 ML VIAL ONE (21:10)
[2020-06-29 21:16] LABS: EPI CELLS 19 /uL (0-25.1); HYALINE CASTS 4 /uL (0-3.1); PH,URINE 5.5 (5.0-8.0); URINE APPEARANCE CLEAR; URINE BACTERIA 597 /uL (0-1359); URINE BILIRUBIN NEGATIVE (NEGATIVE); URINE COLOR YELLOW; URINE GLUCOSE (UA) NEGATIVE (NEGATIVE); URINE KETONE NEGATIVE (NEGATIVE); URINE LEUK ESTERASE NEGATIVE (NEGATIVE); URINE NITRITE NEGATIVE (NEGATIVE); URINE PROTEIN 1+ (NEGATIVE); URINE RBC 11 /uL (0-23.9); URINE UROBILINOGEN 0.2 mg/dL (0.2-1.0); URINE WBC 20 /uL (0-25.8)
[2020-06-30] MEDS: LEVOTHYROXINE 100 MCG, LEVOTHYROXINE 75 MCG PO SCH (06:27)
[2020-06-30] MEDS ORDERED: LEVOTHYROXINE NA 150 MCG TABLET PO SCH (07:00)
[2020-06-30 09:14] LABS: BASO % 0.1 % (0-2.0); HEMATOCRIT 26.1 % (32.4-45.2); HEMOGLOBIN 8.5 GM/dL (10.7-15.3); LYMPH % 17.5 % (8-40); MCH 34.5 pg (25.7-33.7); MCHC 32.7 g/dl (32.0-36.0); MEAN CELL VOLUME 105.6 fl (80-96); MEAN PLT VOLUME 9.2 fl (7.5-11.1); MONO % 7.3 % (3.8-10.2); NEUT % 75.1 % (42.8-82.8); PLATELET COUNT 165 K/MM3 (134-434); RBC 2.47 M/mm3 (3.60-5.2); RDW 17.2 % (11.6-15.6); WHITE BLOOD COUNT 2.7 K/mm3 (4.0-10.0)
[2020-06-30 09:26] LABS: POTASSIUM 4.2 mmol/L (3.5-5.1)
[2020-06-30 09:35] LABS: ALBUMIN 2.4 g/dl (3.4-5.0); BLOOD UREA NITROGEN 15.5 mg/dL (7-18); MAGNESIUM 2.2 mg/dL (1.8-2.4)
[2020-06-30 09:39] LABS: BILIRUBIN,TOTAL 0.3 mg/dL (0.2-1)
[2020-06-30] MEDS ORDERED: CEFTRIAXONE 1 GM in DEXTROSE 5%-WATER - 50 ML IVPB SCH (10:00)
[2020-06-30] MEDS ORDERED: AZITHROMYCIN IVPB 500 MG/250 ML BAG IVPB SCH (10:00)
[2020-06-30] MEDS ORDERED: CALCIUM (OYSTER SHELL) 500 MG TABLET (FP) PO SCH ×2 (10:00)
[2020-06-30] MEDS ORDERED: ENOXAPARIN NA (PORCINE) 40 MG/0.4 ML DISP.SYRIN SQ SCH (10:00)
[2020-06-30] MEDS: DEXAMETHASONE SOD PHOSPHATE 4 MG/1 ML VIAL IVPUSH SCH (10:55)
[2020-06-30] MEDS ORDERED: REMDESIVIR 200 MG in SODIUM CHLORIDE 210 ML IVPB ONE (11:00)
[2020-06-30 11:01] LABS: CALCIUM 6.9 mg/dL (8.5-10.1)
[2020-06-30] MEDS: ZINC SULFATE 220 MG CAPSULE (FP) PO SCH (11:04)
[2020-06-30] MEDS: CHOLECALCIFEROL (VIT D3) 1,000 UNIT (25 MCG) TABLET PO SCH (11:04)
[2020-06-30] MEDS: ASCORBIC ACID 500 MG TABLET (FP) PO SCH (11:04)
[2020-06-30 12:16] LABS: ANISOCYTOSIS 1+; MACROCYTOSIS 1+; PLATELET ESTIMATE DECREASED
[2020-06-30] MEDS: ACETAMINOPHEN 325 MG TABLET (FP) PO PRN ×2 (14:09→21:30)
[2020-06-30] MEDS: FAMOTIDINE 20 MG/50 ML IVPB 20 MG/50 ML MG IVPB SCH ×2 (15:42→21:32)
[2020-06-30] MEDS: TORSEMIDE 100 MG TABLET PO SCH (16:24)
[2020-06-30] MEDS: ALLOPURINOL 100 MG TABLET (FP) PO SCH (21:30)
[2020-06-30] MEDS: ENOXAPARIN NA (PORCINE) 100 MG/1 ML DISP.SYRIN SQ SCH (21:31)
[2020-06-30] MEDS ORDERED: PRAMIPEXOLE DI HCL 1.5 MG PO SCH (22:00)
[2020-07-01] MEDS: ACETAMINOPHEN 325 MG TABLET (FP) PO PRN (03:15)
[2020-07-01] MEDS ORDERED: ICOSAPENT ETHYL 0.5 GM PO SCH (07:00)
[2020-07-01] MEDS: LEVOTHYROXINE NA 150 MCG TABLET PO SCH (07:09)
[2020-07-01 08:37] LABS: HEMATOCRIT 23.9 % (32.4-45.2); HEMOGLOBIN 8.1 GM/dL (10.7-15.3); MCH 35.2 pg (25.7-33.7); MEAN CELL VOLUME 103.5 fl (80-96); MEAN PLT VOLUME 8.9 fl (7.5-11.1); PLATELET COUNT 193 K/MM3 (134-434); RBC 2.31 M/mm3 (3.60-5.2); RDW 17.6 % (11.6-15.6); WHITE BLOOD COUNT 3.5 K/mm3 (4.0-10.0)
[2020-07-01 08:43] LABS: POTASSIUM 3.3 mmol/L (3.5-5.1)
[2020-07-01 08:55] LABS: ALBUMIN 2.6 g/dl (3.4-5.0)
[2020-07-01 08:56] LABS: BLOOD UREA NITROGEN 24.5 mg/dL (7-18); MAGNESIUM 1.9 mg/dL (1.8-2.4)
[2020-07-01 08:59] LABS: BILIRUBIN,TOTAL 0.4 mg/dL (0.2-1); CREATININE 1.4 mg/dL (0.55-1.3); PHOSPHOROUS 5.6 mg/dL (2.5-4.9)
[2020-07-01] MEDS ORDERED: CALCITRIOL 0.25 MCG CAPSULE (FP) PO SCH (10:00)
[2020-07-01] MEDS: ENOXAPARIN NA (PORCINE) 100 MG/1 ML DISP.SYRIN SQ SCH ×2 (10:05→21:34)
[2020-07-01] MEDS: ZINC SULFATE 220 MG CAPSULE (FP) PO SCH (10:05)
[2020-07-01] MEDS: ASCORBIC ACID 500 MG TABLET (FP) PO SCH (10:05)
[2020-07-01] MEDS: TORSEMIDE 100 MG TABLET PO SCH (10:05)
[2020-07-01] MEDS: DEXAMETHASONE SOD PHOSPHATE 4 MG/1 ML VIAL IVPUSH SCH (10:06)
[2020-07-01] MEDS: ALLOPURINOL 100 MG TABLET (FP) PO SCH ×2 (10:07→21:34)
[2020-07-01] MEDS: FAMOTIDINE 20 MG/50 ML IVPB 20 MG/50 ML MG IVPB SCH ×2 (10:07→21:27)
[2020-07-01] MEDS: CHOLECALCIFEROL (VIT D3) 1,000 UNIT (25 MCG) TABLET PO SCH (10:07)
[2020-07-01] MEDS: REMDESIVIR 100 MG in SODIUM CHLORIDE 230 ML IVPB SCH (10:12)
[2020-07-01 10:47] LABS: ERYTHROCYTE SEDIMENTATION RATE 119 mm/hr (0-30)
[2020-07-01] MEDS ORDERED: POTASSIUM CHLORIDE TABS 20 MEQ TABLET.ER (FP) PO ONE (11:53)
[2020-07-02] MEDS: LEVOTHYROXINE NA 150 MCG TABLET PO SCH (06:34)
[2020-07-02 08:09] LABS: HEMATOCRIT 25.7 % (32.4-45.2); HEMOGLOBIN 8.6 GM/dL (10.7-15.3); MCHC 33.4 g/dl (32.0-36.0); MEAN CELL VOLUME 104.6 fl (80-96); MEAN PLT VOLUME 8.6 fl (7.5-11.1); PLATELET COUNT 202 K/MM3 (134-434); RBC 2.46 M/mm3 (3.60-5.2); RDW 17.3 % (11.6-15.6); WHITE BLOOD COUNT 2.6 K/mm3 (4.0-10.0)
[2020-07-02 08:49] LABS: ANION GAP 10 MMOL/L (8-16); BLOOD UREA NITROGEN 41.6 mg/dL (7-18); CHLORIDE 100 mmol/L (98-107); CO2 31 mmol/L (21-32); CREATININE 1.6 mg/dL (0.55-1.3); GLUCOSE,RANDOM 126 mg/dL (74-106); POTASSIUM 3.2 mmol/L (3.5-5.1); SODIUM 141 mmol/L (136-145)
[2020-07-02] MEDS ORDERED: POTASSIUM CHLORIDE TABS 20 MEQ TABLET.ER (FP) PO ONE (08:53)
[2020-07-02] MEDS ORDERED: CALCIUM (OYSTER SHELL) 500 MG TABLET (FP) PO SCH (09:16)
[2020-07-02] MEDS ORDERED: LACTATED RINGERS SOLUTION 1,000 ML with POTASSIUM CHLORIDE 40 MEQ IV ONE (09:30)
[2020-07-02] MEDS: REMDESIVIR 100 MG in SODIUM CHLORIDE 230 ML IVPB SCH (10:47)
[2020-07-02] MEDS: ENOXAPARIN NA (PORCINE) 100 MG/1 ML DISP.SYRIN SQ SCH ×2 (10:49→23:00)
[2020-07-02] MEDS: FAMOTIDINE 20 MG/50 ML IVPB 20 MG/50 ML MG IVPB SCH ×2 (10:49→23:00)
[2020-07-02] MEDS: ZINC SULFATE 220 MG CAPSULE (FP) PO SCH (10:50)
[2020-07-02] MEDS: CALCITRIOL 0.25 MCG CAPSULE (FP) PO SCH (10:50)
[2020-07-02] MEDS: CHOLECALCIFEROL (VIT D3) 1,000 UNIT (25 MCG) TABLET PO SCH (10:50)
[2020-07-02] MEDS: ASCORBIC ACID 500 MG TABLET (FP) PO SCH (10:50)
[2020-07-02] MEDS: DEXAMETHASONE SOD PHOSPHATE 4 MG/1 ML VIAL IVPUSH SCH (10:52)
[2020-07-02] MEDS: CALCIUM (OYSTER SHELL) 500 MG TABLET (FP) PO SCH ×3 (10:52→23:00)
[2020-07-02] MEDS: ALLOPURINOL 100 MG TABLET (FP) PO SCH ×2 (10:57→23:01)
[2020-07-02 15:04] LABS: MAGNESIUM 1.9 mg/dL (1.8-2.4)
[2020-07-02 18:59] LABS: PH,URINE 5.5 (5.0-8.0); URINE APPEARANCE CLEAR; URINE BILIRUBIN NEGATIVE (NEGATIVE); URINE COLOR YELLOW; URINE GLUCOSE (UA) NEGATIVE (NEGATIVE); URINE KETONE NEGATIVE (NEGATIVE); URINE LEUK ESTERASE NEGATIVE (NEGATIVE); URINE NITRITE NEGATIVE (NEGATIVE); URINE PROTEIN NEGATIVE (NEGATIVE); URINE UROBILINOGEN 0.2 mg/dL (0.2-1.0)
[2020-07-03] MEDS ORDERED: BENZOCAINE/MENTH/CETYLPYRD CL 1 EACH LOZENGE MM PRN (05:46)
[2020-07-03] MEDS: LEVOTHYROXINE 100 MCG, LEVOTHYROXINE 75 MCG PO SCH (07:07)
[2020-07-03] MEDS: FAMOTIDINE 20 MG/50 ML IVPB 20 MG/50 ML MG IVPB SCH ×2 (09:43→23:10)
[2020-07-03] MEDS: ENOXAPARIN NA (PORCINE) 100 MG/1 ML DISP.SYRIN SQ SCH ×2 (09:43→23:08)
[2020-07-03] MEDS: DEXAMETHASONE SOD PHOSPHATE 4 MG/1 ML VIAL IVPUSH SCH (09:44)
[2020-07-03] MEDS: CHOLECALCIFEROL (VIT D3) 1,000 UNIT (25 MCG) TABLET PO SCH (09:45)
[2020-07-03] MEDS: CALCIUM (OYSTER SHELL) 500 MG TABLET (FP) PO SCH ×2 (09:45→23:09)
[2020-07-03] MEDS: ZINC SULFATE 220 MG CAPSULE (FP) PO SCH (09:45)
[2020-07-03] MEDS: CALCITRIOL 0.25 MCG CAPSULE (FP) PO SCH ×2 (09:46→23:10)
[2020-07-03] MEDS: ALLOPURINOL 100 MG TABLET (FP) PO SCH ×2 (09:46→23:09)
[2020-07-03] MEDS: ASCORBIC ACID 500 MG TABLET (FP) PO SCH (09:46)
[2020-07-03 09:52] LABS: HEMATOCRIT 26.6 % (32.4-45.2); HEMOGLOBIN 8.9 GM/dL (10.7-15.3); MCH 35.1 pg (25.7-33.7); MCHC 33.4 g/dl (32.0-36.0); MEAN CELL VOLUME 105.2 fl (80-96); MEAN PLT VOLUME 8.9 fl (7.5-11.1); PLATELET COUNT 242 K/MM3 (134-434); RBC 2.53 M/mm3 (3.60-5.2); RDW 17.4 % (11.6-15.6); WHITE BLOOD COUNT 5.4 K/mm3 (4.0-10.0)
[2020-07-03 10:17] LABS: POTASSIUM 3.2 mmol/L (3.5-5.1)
[2020-07-03 10:27] LABS: ALBUMIN 2.5 g/dl (3.4-5.0); BLOOD UREA NITROGEN 45.5 mg/dL (7-18); MAGNESIUM 2.3 mg/dL (1.8-2.4)
[2020-07-03 10:30] LABS: PHOSPHOROUS 5.5 mg/dL (2.5-4.9)
[2020-07-03 10:31] LABS: CREATININE 1.3 mg/dL (0.55-1.3)
[2020-07-03 10:32] LABS: TOT PROT 5.8 g/dl (6.4-8.2)
[2020-07-03] MEDS: REMDESIVIR 100 MG in SODIUM CHLORIDE 230 ML IVPB SCH (11:15)
[2020-07-03 11:33] LABS: CALCIUM 5.8 mg/dL (8.5-10.1)
[2020-07-03] MEDS ORDERED: TRIMETHOBENZAMIDE HCL 200MG/2ML INJ IM ONE (13:39)
[2020-07-03] MEDS ORDERED: CALCIUM GLUCONATE 10% - 1,000 MG/10 ML VIAL IVPB ONE (16:02)
[2020-07-03] MEDS ORDERED: LACTATED RINGERS SOLUTION 1,000 ML/1,000 ML INFUS.BAG IV SCH (16:15)
[2020-07-04] MEDS: LEVOTHYROXINE 100 MCG, LEVOTHYROXINE 75 MCG PO SCH (06:52)
[2020-07-04 08:57] LABS: HEMATOCRIT 27.1 % (32.4-45.2); HEMOGLOBIN 9.1 GM/dL (10.7-15.3); LYMPH % 16.6 % (8-40); MCH 34.7 pg (25.7-33.7); MCHC 33.5 g/dl (32.0-36.0); MEAN CELL VOLUME 103.6 fl (80-96); MEAN PLT VOLUME 8.7 fl (7.5-11.1); MONO % 9.9 % (3.8-10.2); NEUT % 73.5 % (42.8-82.8); PLATELET COUNT 255 K/MM3 (134-434); RBC 2.61 M/mm3 (3.60-5.2); RDW 17.6 % (11.6-15.6); WHITE BLOOD COUNT 4.9 K/mm3 (4.0-10.0)
[2020-07-04 09:11] LABS: POTASSIUM 3.1 mmol/L (3.5-5.1)
[2020-07-04 09:13] LABS: CALCIUM 7.2 mg/dL (8.5-10.1)
[2020-07-04 09:14] LABS: ALBUMIN 2.4 g/dl (3.4-5.0); BLOOD UREA NITROGEN 29.8 mg/dL (7-18); MAGNESIUM 2.3 mg/dL (1.8-2.4)
[2020-07-04] MEDS: ENOXAPARIN NA (PORCINE) 100 MG/1 ML DISP.SYRIN SQ SCH (09:15)
[2020-07-04] MEDS: CHOLECALCIFEROL (VIT D3) 1,000 UNIT (25 MCG) TABLET PO SCH (09:16)
[2020-07-04] MEDS: ZINC SULFATE 220 MG CAPSULE (FP) PO SCH (09:16)
[2020-07-04] MEDS: ASCORBIC ACID 500 MG TABLET (FP) PO SCH (09:16)
[2020-07-04] MEDS: FAMOTIDINE 20 MG/50 ML IVPB 20 MG/50 ML MG IVPB SCH ×2 (09:16→22:42)
[2020-07-04] MEDS: ALLOPURINOL 100 MG TABLET (FP) PO SCH ×2 (09:16→21:02)
[2020-07-04 09:17] LABS: PHOSPHOROUS 4.6 mg/dL (2.5-4.9)
[2020-07-04 09:18] LABS: BILIRUBIN,TOTAL 0.5 mg/dL (0.2-1); TOT PROT 5.7 g/dl (6.4-8.2)
[2020-07-04] MEDS: OMEGA-3 ACID ETHYL ESTERS (FATTY-ACIDS) 1 GM CAPSULE (FP) PO SCH (09:25)
[2020-07-04] MEDS: DEXAMETHASONE SOD PHOSPHATE 4 MG/1 ML VIAL IVPUSH SCH (09:31)
[2020-07-04] MEDS: CALCITRIOL 0.25 MCG CAPSULE (FP) PO SCH ×2 (09:31→21:02)
[2020-07-04] MEDS: CALCIUM (OYSTER SHELL) 500 MG TABLET (FP) PO SCH ×2 (09:33→21:01)
[2020-07-04] MEDS: REMDESIVIR 100 MG in SODIUM CHLORIDE 230 ML IVPB SCH (11:17)
[2020-07-04] MEDS ORDERED: POTASSIUM CHLORIDE TABS 20 MEQ TABLET.ER (FP) PO ONE ×2 (12:40→22:00)
[2020-07-04 15:33] LABS: ANISOCYTOSIS 1+; MACROCYTOSIS 1+; PLATELET ESTIMATE NORMAL
[2020-07-04] MEDS: KCL 10 MEQ IVPB 10 MEQ/100 ML INFUS.BAG IVPB SCH ×2 (17:13→17:14)
[2020-07-04] MEDS ORDERED: traMADol HCL 50 MG TABLET PO ONE ×2 (18:36→20:17)
[2020-07-04 19:08] LABS: FREE KAPPA,SERUM 205.5 mg/L (3.3-19.4)
[2020-07-04 19:34] LABS: URINE APPEARANCE Clear; URINE BILIRUBIN Negative (NEGATIVE); URINE COLOR Yellow; URINE GLUCOSE (UA) Negative (NEGATIVE); URINE KETONE Negative (NEGATIVE); URINE LEUK ESTERASE Negative (NEGATIVE); URINE NITRITE Negative (NEGATIVE); URINE PROTEIN Negative (NEGATIVE); URINE UROBILINOGEN 0.2 mg/dL (0.2-1.0)
[2020-07-05] MEDS ORDERED: MORPHINE SULFATE 2 MG/ML VIAL IVPUSH ONE (01:08)
[2020-07-05 01:42] LABS: BASO % 0.1 % (0-2.0); HEMATOCRIT 24.2 % (32.4-45.2); LYMPH % 10.3 % (8-40); MCH 34.6 pg (25.7-33.7); MCHC 33.1 g/dl (32.0-36.0); MEAN CELL VOLUME 104.6 fl (80-96); MEAN PLT VOLUME 9.2 fl (7.5-11.1); MONO % 6.6 % (3.8-10.2); PLATELET COUNT 276 K/MM3 (134-434); RBC 2.32 M/mm3 (3.60-5.2); RDW 16.6 % (11.6-15.6); WHITE BLOOD COUNT 5.7 K/mm3 (4.0-10.0)
[2020-07-05 01:49] LABS: POTASSIUM 3.8 mmol/L (3.5-5.1)
[2020-07-05 01:51] LABS: CALCIUM 7.3 mg/dL (8.5-10.1)
[2020-07-05 05:20] LABS: ANISOCYTOSIS 2+; MACROCYTOSIS 1+; PLATELET ESTIMATE NORMAL; TEAR DROP CELLS 2+
[2020-07-05] MEDS ORDERED: levETIRAcetam 500 MG/5 ML INJECTION VIAL IVPB ONE ×2 (06:53→10:30)
[2020-07-05 06:59] LABS: BASO % 0.1 % (0-2.0); HEMATOCRIT 21.1 % (32.4-45.2); LYMPH % 18.7 % (8-40); MCH 33.6 pg (25.7-33.7); MCHC 32.3 g/dl (32.0-36.0); MEAN CELL VOLUME 104.1 fl (80-96); MEAN PLT VOLUME 8.8 fl (7.5-11.1); NEUT % 73.2 % (42.8-82.8); PLATELET COUNT 504 K/MM3 (134-434); RBC 2.03 M/mm3 (3.60-5.2); RDW 16.8 % (11.6-15.6); WHITE BLOOD COUNT 17.7 K/mm3 (4.0-10.0)
[2020-07-05 07:08] LABS: HEMOGLOBIN 6.8 GM/dL (10.7-15.3)
[2020-07-05 07:11] LABS: POTASSIUM 3.7 mmol/L (3.5-5.1)
[2020-07-05 07:13] LABS: BLOOD UREA NITROGEN 32.4 mg/dL (7-18); CALCIUM 7.2 mg/dL (8.5-10.1)
[2020-07-05 07:14] LABS: ALBUMIN 2.2 g/dl (3.4-5.0)
[2020-07-05 07:17] LABS: CREATININE 1.3 mg/dL (0.55-1.3); PHOSPHOROUS 6.5 mg/dL (2.5-4.9)
[2020-07-05 07:18] LABS: BILIRUBIN,TOTAL 0.6 mg/dL (0.2-1)
[2020-07-05] MEDS: CALCIUM (OYSTER SHELL) 500 MG TABLET (FP) PO SCH ×2 (07:37→14:57)
[2020-07-05] MEDS: LEVOTHYROXINE 100 MCG, LEVOTHYROXINE 75 MCG PO SCH (07:54)
[2020-07-05] MEDS: OMEGA-3 ACID ETHYL ESTERS (FATTY-ACIDS) 1 GM CAPSULE (FP) PO SCH (07:54)
[2020-07-05 08:18] LABS: INR 1.27 (0.83-1.09); PROTHROMBIN TIME (PATIENT) 15.3 SEC (9.7-13.0)
[2020-07-05 08:20] LABS: ACTIVATED PTT 28.1 SECONDS (25.2-36.5)
[2020-07-05 09:00] LABS: ANISOCYTOSIS 2+; MACROCYTOSIS 2+; PLATELET ESTIMATE INCREASED; ROULEAU 2+
[2020-07-05] MEDS: CHOLECALCIFEROL (VIT D3) 1,000 UNIT (25 MCG) TABLET PO SCH (09:55)
[2020-07-05] MEDS: ASCORBIC ACID 500 MG TABLET (FP) PO SCH (09:55)
[2020-07-05] MEDS: CALCITRIOL 0.25 MCG CAPSULE (FP) PO SCH (09:55)
[2020-07-05] MEDS: FAMOTIDINE 20 MG/50 ML IVPB 20 MG/50 ML MG IVPB SCH ×2 (09:56→22:00)
[2020-07-05] MEDS: ALLOPURINOL 100 MG TABLET (FP) PO SCH ×2 (09:56→22:00)
[2020-07-05] MEDS: DEXAMETHASONE SOD PHOSPHATE 4 MG/1 ML VIAL IVPUSH SCH (09:56)
[2020-07-05] MEDS: ZINC SULFATE 220 MG CAPSULE (FP) PO SCH (09:56)
[2020-07-05] MEDS ORDERED: SODIUM CHLORIDE 1,000 ML IV SCH ×2 (10:00→21:19)
[2020-07-05] MEDS ORDERED: ENOXAPARIN NA (PORCINE) 40 MG/0.4 ML DISP.SYRIN SQ SCH (10:00)
[2020-07-05] MEDS ORDERED: SODIUM CHLORIDE 500 ML IV STA (10:18)
[2020-07-05] MEDS ORDERED: SODIUM CHLORIDE 250 ML IV STA (10:21)
[2020-07-05] MEDS ORDERED: LORazepam 2 MG/ML SDV VIAL ONE (11:24)
[2020-07-05] MEDS ORDERED: LORazepam 2 MG/ML SDV VIAL IVPUSH ONE (11:31)
[2020-07-05] MEDS ORDERED: predniSONE 20 MG TABLET (UD) PO STA (12:08)
[2020-07-05 13:35] LABS: BASO % 0.1 % (0-2.0); HEMATOCRIT 27.5 % (32.4-45.2); HEMOGLOBIN 9.1 GM/dL (10.7-15.3); LYMPH % 5.3 % (8-40); MCH 32.9 pg (25.7-33.7); MEAN CELL VOLUME 99.5 fl (80-96); MEAN PLT VOLUME 8.7 fl (7.5-11.1); NEUT % 87.6 % (42.8-82.8); PLATELET COUNT 266 K/MM3 (134-434); RBC 2.76 M/mm3 (3.60-5.2); WHITE BLOOD COUNT 14.5 K/mm3 (4.0-10.0)
[2020-07-05] MEDS ORDERED: DEXAMETHASONE SOD PHOSPHATE 10 MG/1 ML VIAL ONE (13:46)
[2020-07-05] MEDS ORDERED: DEXAMETHASONE SOD PHOSPHATE 4 MG/1 ML VIAL IVPUSH ONE (14:00)
[2020-07-05] MEDS ORDERED: METOPROLOL TARTRATE 5 MG/5 ML VIAL IVPUSH PRN ×2 (15:19→21:06)
[2020-07-05] MEDS ORDERED: predniSONE 20 MG TABLET (UD) PO ONE ×2 (18:00→21:19)
[2020-07-05] MEDS ORDERED: BENZOCAINE/MENTH/CETYLPYRD CL 1 EACH LOZENGE MM PRN (21:19)
[2020-07-05] MEDS ORDERED: CALCIUM GLUCONATE 10% - 1,000 MG/10 ML VIAL IVPUSH ONE (21:20)
[2020-07-05] MEDS: PRAMIPEXOLE DIHYDROCHLORIDE 1.5 MG TABLET PO SCH (22:00)
[2020-07-05] MEDS ORDERED: levETIRAcetam 500 MG/5 ML INJECTION VIAL IVPB SCH (22:00)
[2020-07-05] MEDS: levETIRAcetam 500 MG/5 ML INJECTION VIAL IVPB SCH (22:00)
[2020-07-05] MEDS ORDERED: PRAMIPEXOLE DIHYDROCHLORIDE 1.5 MG TABLET PO SCH (22:00)
[2020-07-05] MEDS: POTASSIUM CHLORIDE 10 MEQ in DEXTROSE 5%-NORMAL SALINE 1,000 ML IVPB SCH (22:00)
[2020-07-05] MEDS: MUPIROCIN 2% TOPICAL OINTMENT FOR DECOLONIZATION NS SCH (23:10)
[2020-07-05] MEDS: CHLORHEXIDINE GLUCONATE 4% CLEANSER FOR DECOLONIZATION TP SCH (23:11)
[2020-07-05] MEDS ORDERED: CALCIUM GLUCONATE 10% - 1,000 MG/10 ML VIAL ONE (23:15)
[2020-07-05] MEDS: PRAMIPEXOLE DI HCL 0.75 MG PO SCH (23:19)
[2020-07-06] MEDS ORDERED: predniSONE 20 MG TABLET (UD) PO ONE ×2
[2020-07-06 01:31] LABS: HEMOGLOBIN 7.8 GM/dL (10.7-15.3); RBC 2.33 M/mm3 (3.60-5.2); WHITE BLOOD COUNT 12.2 K/mm3 (4.0-10.0)
[2020-07-06 01:41] LABS: BASO % 0.1 % (0-2.0); HEMATOCRIT 22.7 % (32.4-45.2); LYMPH % 6.8 % (8-40); MCH 33.4 pg (25.7-33.7); MCHC 34.2 g/dl (32.0-36.0); MEAN CELL VOLUME 97.5 fl (80-96); MEAN PLT VOLUME 9.3 fl (7.5-11.1); MONO % 6.3 % (3.8-10.2); NEUT % 86.8 % (42.8-82.8); PLATELET COUNT 276 K/MM3 (134-434); RDW 18.1 % (11.6-15.6)
[2020-07-06] MEDS ORDERED: PT OWN MED DRAWER 7, Y5N ONE ×3 (08:59→21:15)
[2020-07-06 09:35] LABS: URINE APPEARANCE Clear; URINE BILIRUBIN Negative (NEGATIVE); URINE COLOR Yellow; URINE GLUCOSE (UA) Negative (NEGATIVE); URINE KETONE Negative (NEGATIVE); URINE LEUK ESTERASE Negative (NEGATIVE); URINE NITRITE Negative (NEGATIVE); URINE PROTEIN Negative (NEGATIVE); URINE UROBILINOGEN 0.2 mg/dL (0.2-1.0)
[2020-07-06] MEDS ORDERED: PARICALCITOL 5 MCG/ML VIAL IVPUSH ONE ×2 (10:00)
[2020-07-06] MEDS ORDERED: CALCIUM GLUCONATE 10% - 1,000 MG/10 ML VIAL IVPUSH SCH (10:00)
[2020-07-06] MEDS ORDERED: PRAMIPEXOLE DIHYDROCHLORIDE 0.5 MG TABLET PO SCH (10:00)
[2020-07-06] MEDS ORDERED: LEVOTHYROXINE SODIUM 100 MCG VIAL IVPUSH SCH ×2 (10:00)
[2020-07-06] MEDS: POTASSIUM CHLORIDE 10 MEQ in DEXTROSE 5%-NORMAL SALINE 1,000 ML IVPB SCH (10:28)
[2020-07-06] MEDS: CALCIUM GLUCONATE 10% - 1,000 MG/10 ML VIAL IVPUSH SCH (10:28)
[2020-07-06] MEDS: MUPIROCIN 2% TOPICAL OINTMENT FOR DECOLONIZATION NS SCH ×2 (10:28→21:19)
[2020-07-06] MEDS: DEXAMETHASONE SOD PHOSPHATE 4 MG/1 ML VIAL IVPUSH SCH (10:28)
[2020-07-06] MEDS: PRAMIPEXOLE DIHYDROCHLORIDE 0.5 MG TABLET PO SCH (10:29)
[2020-07-06] MEDS: levETIRAcetam 500 MG/5 ML INJECTION VIAL IVPB SCH ×2 (10:29→21:19)
[2020-07-06] MEDS: LEVOTHYROXINE SODIUM 100 MCG VIAL IVPUSH SCH (10:30)
[2020-07-06] MEDS: ASCORBIC ACID 500 MG TABLET (FP) PO SCH (10:31)
[2020-07-06] MEDS: ALLOPURINOL 100 MG TABLET (FP) PO SCH ×2 (10:32→21:22)
[2020-07-06] MEDS: FAMOTIDINE 20 MG/50 ML IVPB 20 MG/50 ML MG IVPB SCH ×2 (10:34→21:20)
[2020-07-06 12:43] LABS: BASO % 0.2 % (0-2.0); HEMATOCRIT 27.1 % (32.4-45.2); LYMPH % 5.7 % (8-40); MCHC 33.2 g/dl (32.0-36.0); MEAN CELL VOLUME 96.4 fl (80-96); MEAN PLT VOLUME 8.8 fl (7.5-11.1); MONO % 6.6 % (3.8-10.2); NEUT % 87.5 % (42.8-82.8); PLATELET COUNT 258 K/MM3 (134-434); RBC 2.81 M/mm3 (3.60-5.2); RDW 18.1 % (11.6-15.6); WHITE BLOOD COUNT 11.9 K/mm3 (4.0-10.0)
[2020-07-06 12:59] LABS: POTASSIUM 4.5 mmol/L (3.5-5.1)
[2020-07-06 13:05] LABS: ALBUMIN 2.3 g/dl (3.4-5.0); BLOOD UREA NITROGEN 44.6 mg/dL (7-18); MAGNESIUM 2.4 mg/dL (1.8-2.4)
[2020-07-06 13:08] LABS: CREATININE 1.6 mg/dL (0.55-1.3); PHOSPHOROUS 5.4 mg/dL (2.5-4.9)
[2020-07-06 13:09] LABS: BILIRUBIN,TOTAL 0.5 mg/dL (0.2-1); TOT PROT 5.1 g/dl (6.4-8.2)
[2020-07-06 13:19] LABS: CALCIUM 6.8 mg/dL (8.5-10.1)
[2020-07-06] MEDS ORDERED: CALCIUM GLUCONATE 10% - 1,000 MG/10 ML VIAL IVPUSH ONE (14:00)
[2020-07-06] MEDS ORDERED: CALCITRIOL 0.25 MCG CAPSULE (FP) PO SCH (14:15)
[2020-07-06] MEDS: CHLORHEXIDINE GLUCONATE 4% CLEANSER FOR DECOLONIZATION TP SCH (21:19)
[2020-07-06] MEDS: CALCIUM (OYSTER SHELL) 500 MG TABLET (FP) PO SCH (21:20)
[2020-07-06] MEDS: CALCITRIOL 0.25 MCG CAPSULE (FP) PO SCH (21:55)
[2020-07-06] MEDS: PRAMIPEXOLE DIHYDROCHLORIDE 1.5 MG TABLET PO SCH (21:56)
[2020-07-06] MEDS ORDERED: CALCIUM CARBONATE 650 MG TABLET PO SCH (22:00)
[2020-07-07] MEDS ORDERED: PT OWN MED DRAWER 7, Y5N ONE ×2 (06:05→21:14)
[2020-07-07] MEDS: CALCIUM (OYSTER SHELL) 500 MG TABLET (FP) PO SCH ×4 (06:06→22:59)
[2020-07-07 07:22] LABS: BASO % 0.1 % (0-2.0); HEMATOCRIT 20.9 % (32.4-45.2); HEMOGLOBIN 7.1 GM/dL (10.7-15.3); LYMPH % 6.1 % (8-40); MCH 32.7 pg (25.7-33.7); MCHC 33.7 g/dl (32.0-36.0); MEAN CELL VOLUME 97.1 fl (80-96); MEAN PLT VOLUME 8.7 fl (7.5-11.1); MONO % 7.7 % (3.8-10.2); NEUT % 86.1 % (42.8-82.8); PLATELET COUNT 189 K/MM3 (134-434); RBC 2.15 M/mm3 (3.60-5.2); RDW 17.6 % (11.6-15.6); WHITE BLOOD COUNT 8.6 K/mm3 (4.0-10.0)
[2020-07-07 07:41] LABS: POTASSIUM 4.2 mmol/L (3.5-5.1)
[2020-07-07 07:47] LABS: ALBUMIN 2.1 g/dl (3.4-5.0)
[2020-07-07 07:48] LABS: BLOOD UREA NITROGEN 34.7 mg/dL (7-18); MAGNESIUM 2.5 mg/dL (1.8-2.4)
[2020-07-07 07:50] LABS: BILIRUBIN,TOTAL 0.3 mg/dL (0.2-1); TOT PROT 4.8 g/dl (6.4-8.2)
[2020-07-07 07:52] LABS: CREATININE 1.1 mg/dL (0.55-1.3); PHOSPHOROUS 3.9 mg/dL (2.5-4.9)
[2020-07-07 07:58] LABS: CALCIUM 6.7 mg/dL (8.5-10.1)
[2020-07-07] MEDS: FAMOTIDINE 20 MG/50 ML IVPB 20 MG/50 ML MG IVPB SCH ×3 (10:00→22:59)
[2020-07-07] MEDS: DEXAMETHASONE SOD PHOSPHATE 4 MG/1 ML VIAL IVPUSH SCH (10:00)
[2020-07-07] MEDS: MUPIROCIN 2% TOPICAL OINTMENT FOR DECOLONIZATION NS SCH (10:02)
[2020-07-07] MEDS: PRAMIPEXOLE DIHYDROCHLORIDE 0.5 MG TABLET PO SCH (10:04)
[2020-07-07] MEDS: CALCITRIOL 0.25 MCG CAPSULE (FP) PO SCH ×2 (10:04→23:01)
[2020-07-07] MEDS: levETIRAcetam 500 MG/5 ML INJECTION VIAL IVPB SCH ×3 (10:07→22:58)
[2020-07-07] MEDS: ALLOPURINOL 100 MG TABLET (FP) PO SCH ×3 (10:09→23:02)
[2020-07-07] MEDS: ASCORBIC ACID 500 MG TABLET (FP) PO SCH (10:10)
[2020-07-07] MEDS: LEVOTHYROXINE SODIUM 100 MCG VIAL IVPUSH SCH (10:44)
[2020-07-07] MEDS: CALCIUM GLUCONATE 10% - 1,000 MG/10 ML VIAL IVPUSH SCH (10:47)
[2020-07-07 11:52] LABS: ANISOCYTOSIS 1+; MACROCYTOSIS 0; PLATELET ESTIMATE NORMAL
[2020-07-07] MEDS ORDERED: CALCIUM GLUCONATE 10% - 1,000 MG/10 ML VIAL IVPB ONE (15:32)
[2020-07-07 20:34] LABS: HEMATOCRIT 21.5 % (32.4-45.2); HEMOGLOBIN 7.2 GM/dL (10.7-15.3); MCH 32.6 pg (25.7-33.7); MCHC 33.5 g/dl (32.0-36.0); MEAN CELL VOLUME 97.2 fl (80-96); MEAN PLT VOLUME 8.8 fl (7.5-11.1); PLATELET COUNT 185 K/MM3 (134-434); RBC 2.21 M/mm3 (3.60-5.2); RDW 17.6 % (11.6-15.6); WHITE BLOOD COUNT 8.2 K/mm3 (4.0-10.0)
[2020-07-07] MEDS ORDERED: BENZOCAINE/MENTH/CETYLPYRD CL 1 EACH LOZENGE MM PRN (22:02)
[2020-07-07] MEDS: PRAMIPEXOLE DIHYDROCHLORIDE 1.5 MG TABLET PO SCH (23:01)
[2020-07-08] MEDS: MUPIROCIN 2% TOPICAL OINTMENT FOR DECOLONIZATION NS SCH (00:57)
[2020-07-08] MEDS: levETIRAcetam 500 MG/5 ML INJECTION VIAL IVPB SCH ×3 (00:57→10:56)
[2020-07-08] MEDS: PRAMIPEXOLE DIHYDROCHLORIDE 1.5 MG TABLET PO SCH ×2 (00:57→21:20)
[2020-07-08] MEDS: CHLORHEXIDINE GLUCONATE 4% CLEANSER FOR DECOLONIZATION TP SCH (00:57)
[2020-07-08] MEDS: CALCIUM (OYSTER SHELL) 500 MG TABLET (FP) PO SCH ×4 (00:58→21:19)
[2020-07-08] MEDS: FAMOTIDINE 20 MG/50 ML IVPB 20 MG/50 ML MG IVPB SCH ×3 (00:58→21:18)
[2020-07-08] MEDS: CALCITRIOL 0.25 MCG CAPSULE (FP) PO SCH ×3 (00:58→21:18)
[2020-07-08] MEDS: ALLOPURINOL 100 MG TABLET (FP) PO SCH ×3 (00:58→21:20)
[2020-07-08] MEDS ORDERED: LEVOTHYROXINE NA 88 MCG TABLET (FP) PO SCH (07:00)
[2020-07-08] MEDS ORDERED: LEVOTHYROXINE NA 75 MCG TABLET (FP) ONE (07:32)
[2020-07-08] MEDS ORDERED: LEVOTHYROXINE NA 100 MCG TABLET (FP) ONE (07:33)
[2020-07-08] MEDS: LEVOTHYROXINE 100 MCG, LEVOTHYROXINE 75 MCG PO SCH (07:33)
[2020-07-08] MEDS ORDERED: PT OWN MED DRAWER 7, Y5N ONE ×2 (09:51→21:12)
[2020-07-08] MEDS ORDERED: MUPIROCIN 2% TOPICAL OINTMENT FOR DECOLONIZATION NS SCH (10:00)
[2020-07-08] MEDS: ASCORBIC ACID 500 MG TABLET (FP) PO SCH (10:44)
[2020-07-08] MEDS: ZINC SULFATE 220 MG CAPSULE (FP) PO SCH (10:44)
[2020-07-08] MEDS: DEXAMETHASONE SOD PHOSPHATE 4 MG/1 ML VIAL IVPUSH SCH (10:44)
[2020-07-08] MEDS: PRAMIPEXOLE DIHYDROCHLORIDE 0.5 MG TABLET PO SCH (10:46)
[2020-07-08 10:47] LABS: INR 1.3 (0.83-1.09); PROTHROMBIN TIME (PATIENT) 15.9 SEC (9.7-13.0)
[2020-07-08 10:49] LABS: ACTIVATED PTT 28.2 SECONDS (25.2-36.5); BASO % 0.1 % (0-2.0); HEMATOCRIT 22.8 % (32.4-45.2); HEMOGLOBIN 7.6 GM/dL (10.7-15.3); MCH 32.6 pg (25.7-33.7); MCHC 33.2 g/dl (32.0-36.0); MEAN CELL VOLUME 98.3 fl (80-96); MEAN PLT VOLUME 8.9 fl (7.5-11.1); MONO % 6.3 % (3.8-10.2); NEUT % 85.6 % (42.8-82.8); PLATELET COUNT 199 K/MM3 (134-434); RBC 2.32 M/mm3 (3.60-5.2); RDW 17.3 % (11.6-15.6); WHITE BLOOD COUNT 8.5 K/mm3 (4.0-10.0)
[2020-07-08 10:56] LABS: POTASSIUM 4.6 mmol/L (3.5-5.1)
[2020-07-08 10:59] LABS: ALBUMIN 2.3 g/dl (3.4-5.0); BLOOD UREA NITROGEN 29.9 mg/dL (7-18); CALCIUM 8.3 mg/dL (8.5-10.1); MAGNESIUM 2.8 mg/dL (1.8-2.4)
[2020-07-08 11:01] LABS: CREATININE 0.9 mg/dL (0.55-1.3); PHOSPHOROUS 4.2 mg/dL (2.5-4.9)
[2020-07-08 11:03] LABS: BILIRUBIN,TOTAL 0.6 mg/dL (0.2-1); TOT PROT 5.1 g/dl (6.4-8.2)
[2020-07-08 12:37] LABS: ANISOCYTOSIS 1+; MACROCYTOSIS 1+; OVALOCYTE 1+; PLATELET ESTIMATE NORMAL; TEAR DROP CELLS 1+
[2020-07-08] MEDS ORDERED: CHLORHEXIDINE GLUCONATE 4% CLEANSER FOR DECOLONIZATION TP SCH (22:00)
[2020-07-09] MEDS ORDERED: LEVOTHYROXINE NA 75 MCG TABLET (FP) ONE (04:55)
[2020-07-09] MEDS ORDERED: LEVOTHYROXINE NA 100 MCG TABLET (FP) ONE (04:56)
[2020-07-09] MEDS: CALCIUM (OYSTER SHELL) 500 MG TABLET (FP) PO SCH ×3 (06:02→21:55)
[2020-07-09] MEDS: LEVOTHYROXINE 100 MCG, LEVOTHYROXINE 75 MCG PO SCH (06:02)
[2020-07-09] MEDS ORDERED: PT OWN MED DRAWER 7, Y5N ONE ×2 (08:58→20:44)
[2020-07-09] MEDS: ZINC SULFATE 220 MG CAPSULE (FP) PO SCH (09:06)
[2020-07-09] MEDS: ALLOPURINOL 100 MG TABLET (FP) PO SCH ×2 (09:06→21:56)
[2020-07-09] MEDS: ASCORBIC ACID 500 MG TABLET (FP) PO SCH (09:06)
[2020-07-09] MEDS: DEXAMETHASONE SOD PHOSPHATE 4 MG/1 ML VIAL IVPUSH SCH (09:06)
[2020-07-09] MEDS: FAMOTIDINE 20 MG/50 ML IVPB 20 MG/50 ML MG IVPB SCH ×2 (09:07→21:55)
[2020-07-09 10:07] LABS: BASO % 0.2 % (0-2.0); HEMATOCRIT 24.7 % (32.4-45.2); HEMOGLOBIN 8.3 GM/dL (10.7-15.3); LYMPH % 8.6 % (8-40); MCH 33.2 pg (25.7-33.7); MCHC 33.6 g/dl (32.0-36.0); MEAN CELL VOLUME 98.9 fl (80-96); MEAN PLT VOLUME 8.9 fl (7.5-11.1); MONO % 7.2 % (3.8-10.2); PLATELET COUNT 213 K/MM3 (134-434); RDW 17.3 % (11.6-15.6); WHITE BLOOD COUNT 8.9 K/mm3 (4.0-10.0)
[2020-07-09 10:24] LABS: POTASSIUM 4.5 mmol/L (3.5-5.1)
[2020-07-09 10:32] LABS: ALBUMIN 2.3 g/dl (3.4-5.0); BLOOD UREA NITROGEN 30.6 mg/dL (7-18); CALCIUM 9.3 mg/dL (8.5-10.1); MAGNESIUM 2.6 mg/dL (1.8-2.4)
[2020-07-09 10:36] LABS: BILIRUBIN,TOTAL 1.1 mg/dL (0.2-1); CREATININE 0.9 mg/dL (0.55-1.3); PHOSPHOROUS 4.8 mg/dL (2.5-4.9); TOT PROT 5.1 g/dl (6.4-8.2)
[2020-07-09] MEDS: CALCITRIOL 0.25 MCG CAPSULE (FP) PO SCH ×2 (11:19→21:55)
[2020-07-09] MEDS: PRAMIPEXOLE DIHYDROCHLORIDE 0.5 MG TABLET PO SCH (11:20)
[2020-07-09 11:39] LABS: ANISOCYTOSIS 0; MACROCYTOSIS 0; PLATELET ESTIMATE NORMAL
[2020-07-09] MEDS: PRAMIPEXOLE DIHYDROCHLORIDE 1.5 MG TABLET PO SCH (21:55)
[2020-07-10] MEDS ORDERED: LEVOTHYROXINE NA 75 MCG TABLET (FP) ONE (04:58)
[2020-07-10] MEDS ORDERED: LEVOTHYROXINE NA 100 MCG TABLET (FP) ONE (04:59)
[2020-07-10] MEDS: LEVOTHYROXINE 100 MCG, LEVOTHYROXINE 75 MCG PO SCH (06:16)
[2020-07-10] MEDS: CALCIUM (OYSTER SHELL) 500 MG TABLET (FP) PO SCH (06:16)
[2020-07-10] MEDS ORDERED: PT OWN MED DRAWER 7, Y5N ONE ×2 (11:09→20:59)
[2020-07-10] MEDS: FAMOTIDINE 20 MG/50 ML IVPB 20 MG/50 ML MG IVPB SCH ×2 (11:38→21:02)
[2020-07-10] MEDS: ZINC SULFATE 220 MG CAPSULE (FP) PO SCH (11:38)
[2020-07-10] MEDS: ASCORBIC ACID 500 MG TABLET (FP) PO SCH (11:39)
[2020-07-10] MEDS: CALCITRIOL 0.25 MCG CAPSULE (FP) PO SCH (11:39)
[2020-07-10] MEDS: PRAMIPEXOLE DIHYDROCHLORIDE 0.5 MG TABLET PO SCH (11:39)
[2020-07-10] MEDS: ALLOPURINOL 100 MG TABLET (FP) PO SCH ×2 (11:39→21:02)
[2020-07-10] MEDS: DEXAMETHASONE SOD PHOSPHATE 4 MG/1 ML VIAL IVPUSH SCH (11:41)
[2020-07-10 12:48] LABS: BASO % 0.1 % (0-2.0); EOS % 0.1 % (0-4.5); HEMATOCRIT 26.5 % (32.4-45.2); HEMOGLOBIN 8.9 GM/dL (10.7-15.3); LYMPH % 11.8 % (8-40); MCH 33.4 pg (25.7-33.7); MCHC 33.4 g/dl (32.0-36.0); MEAN CELL VOLUME 99.9 fl (80-96); MEAN PLT VOLUME 8.9 fl (7.5-11.1); MONO % 6.9 % (3.8-10.2); NEUT % 81.1 % (42.8-82.8); PLATELET COUNT 222 K/MM3 (134-434); RBC 2.65 M/mm3 (3.60-5.2); RDW 17.3 % (11.6-15.6); WHITE BLOOD COUNT 10.1 K/mm3 (4.0-10.0)
[2020-07-10 12:54] VITALS: BMI 29.5
[2020-07-10 13:09] LABS: POTASSIUM 4.4 mmol/L (3.5-5.1)
[2020-07-10 13:15] LABS: CALCIUM 10.1 mg/dL (8.5-10.1)
[2020-07-10 13:16] LABS: ALBUMIN 2.5 g/dl (3.4-5.0); BLOOD UREA NITROGEN 30.3 mg/dL (7-18); MAGNESIUM 2.3 mg/dL (1.8-2.4)
[2020-07-10 13:19] LABS: CREATININE 0.9 mg/dL (0.55-1.3); PHOSPHOROUS 4.9 mg/dL (2.5-4.9)
[2020-07-10 13:20] LABS: BILIRUBIN,TOTAL 0.6 mg/dL (0.2-1); TOT PROT 5.5 g/dl (6.4-8.2)
[2020-07-10 13:46] LABS: ERYTHROCYTE SEDIMENTATION RATE 82 mm/hr (0-30)
[2020-07-10 15:47] LABS: ANISOCYTOSIS 2+; MACROCYTOSIS 1+; OVALOCYTE 1+; PLATELET ESTIMATE NORMAL
[2020-07-10] MEDS: PRAMIPEXOLE DIHYDROCHLORIDE 1.5 MG TABLET PO SCH (21:02)
[2020-07-11] MEDS ORDERED: LEVOTHYROXINE NA 100 MCG TABLET (FP) ONE (06:02)
[2020-07-11] MEDS ORDERED: LEVOTHYROXINE NA 75 MCG TABLET (FP) ONE (06:02)
[2020-07-11] MEDS: LEVOTHYROXINE 100 MCG, LEVOTHYROXINE 75 MCG PO SCH (06:23)
[2020-07-11 09:41] LABS: BASO % 0.2 % (0-2.0); HEMATOCRIT 29.7 % (32.4-45.2); HEMOGLOBIN 9.8 GM/dL (10.7-15.3); MCH 33.3 pg (25.7-33.7); MCHC 32.9 g/dl (32.0-36.0); MEAN CELL VOLUME 101.3 fl (80-96); MEAN PLT VOLUME 9.4 fl (7.5-11.1); MONO % 6.9 % (3.8-10.2); NEUT % 80.9 % (42.8-82.8); PLATELET COUNT 219 K/MM3 (134-434); RBC 2.93 M/mm3 (3.60-5.2); RDW 17.7 % (11.6-15.6); WHITE BLOOD COUNT 13.1 K/mm3 (4.0-10.0)
[2020-07-11] MEDS ORDERED: PT OWN MED DRAWER 7, Y5N ONE (09:48)
[2020-07-11 09:56] LABS: POTASSIUM 4.3 mmol/L (3.5-5.1)
[2020-07-11] MEDS ORDERED: CALCITRIOL 0.25 MCG CAPSULE (FP) PO SCH (10:00)
[2020-07-11 10:15] LABS: CALCIUM 10.1 mg/dL (8.5-10.1)
[2020-07-11 10:16] LABS: ALBUMIN 2.7 g/dl (3.4-5.0); BLOOD UREA NITROGEN 26.1 mg/dL (7-18); MAGNESIUM 2.1 mg/dL (1.8-2.4)
[2020-07-11] MEDS: ASCORBIC ACID 500 MG TABLET (FP) PO SCH (10:16)
[2020-07-11] MEDS: ALLOPURINOL 100 MG TABLET (FP) PO SCH ×2 (10:16→23:48)
[2020-07-11] MEDS: PRAMIPEXOLE DIHYDROCHLORIDE 0.5 MG TABLET PO SCH (10:16)
[2020-07-11] MEDS: ZINC SULFATE 220 MG CAPSULE (FP) PO SCH (10:16)
[2020-07-11 10:19] LABS: CREATININE 0.8 mg/dL (0.55-1.3)
[2020-07-11 10:20] LABS: PHOSPHOROUS 4.4 mg/dL (2.5-4.9)
[2020-07-11 10:23] LABS: BILIRUBIN,TOTAL 1.2 mg/dL (0.2-1); TOT PROT 5.5 g/dl (6.4-8.2)
[2020-07-11 13:09] LABS: ANISOCYTOSIS 1+; MACROCYTOSIS 0; OVALOCYTE 1+; PLATELET ESTIMATE NORMAL; TEAR DROP CELLS 1+
[2020-07-11] MEDS: PRAMIPEXOLE DIHYDROCHLORIDE 1.5 MG TABLET PO SCH (23:48)
[2020-07-12] MEDS ORDERED: LEVOTHYROXINE NA 100 MCG TABLET (FP) ONE (06:10)
[2020-07-12] MEDS ORDERED: LEVOTHYROXINE NA 75 MCG TABLET (FP) ONE (06:10)
[2020-07-12] MEDS: LEVOTHYROXINE 100 MCG, LEVOTHYROXINE 75 MCG PO SCH (06:23)
[2020-07-12] MEDS: ASCORBIC ACID 500 MG TABLET (FP) PO SCH (10:45)
[2020-07-12] MEDS: ZINC SULFATE 220 MG CAPSULE (FP) PO SCH (10:45)
[2020-07-12] MEDS: PRAMIPEXOLE DIHYDROCHLORIDE 0.5 MG TABLET PO SCH (10:46)
[2020-07-12] MEDS: ALLOPURINOL 100 MG TABLET (FP) PO SCH (10:46)
[2020-07-12] MEDS ORDERED: CALCIUM 250MG/VIT-D 125 UNITS 1 COMBO TABLET PO SCH (11:00)
[2020-07-12] MEDS ORDERED: CALCITRIOL 0.25 MCG CAPSULE (FP) PO SCH ×2 (11:00→15:00)
[2020-07-12 11:21] LABS: BASO % 0.3 % (0-2.0); EOS % 0.3 % (0-4.5); HEMATOCRIT 26.3 % (32.4-45.2); HEMOGLOBIN 8.7 GM/dL (10.7-15.3); LYMPH % 11.1 % (8-40); MCH 33.4 pg (25.7-33.7); MCHC 33.3 g/dl (32.0-36.0); MEAN CELL VOLUME 100.3 fl (80-96); MEAN PLT VOLUME 9.3 fl (7.5-11.1); MONO % 5.4 % (3.8-10.2); NEUT % 82.9 % (42.8-82.8); PLATELET COUNT 186 K/MM3 (134-434); RBC 2.62 M/mm3 (3.60-5.2); RDW 18.1 % (11.6-15.6); WHITE BLOOD COUNT 8.7 K/mm3 (4.0-10.0)
[2020-07-12 11:58] LABS: POTASSIUM 3.8 mmol/L (3.5-5.1)
[2020-07-12 12:01] LABS: ALBUMIN 2.4 g/dl (3.4-5.0); CALCIUM 8.4 mg/dL (8.5-10.1); MAGNESIUM 2.1 mg/dL (1.8-2.4)
[2020-07-12 12:02] LABS: BLOOD UREA NITROGEN 21.5 mg/dL (7-18)
[2020-07-12 12:04] LABS: CREATININE 0.9 mg/dL (0.55-1.3); PHOSPHOROUS 3.2 mg/dL (2.5-4.9)
[2020-07-12 12:06] LABS: BILIRUBIN,TOTAL 1.1 mg/dL (0.2-1); TOT PROT 5.1 g/dl (6.4-8.2)
[2020-07-12] MEDS ORDERED: PT OWN MED DRAWER 7, Y5N ONE ×3 (13:05→14:30)
[2020-07-12 15:48] VITALS: BP 107/60; PULSE 112; TEMP 97.8
== END 2020-07-12 17:47 | disposition home or self-care (01) | DRG 177 ==
LOC: JER 17:01 → JERBED 20:42 → J6WEST-2 23:18 → JICU 07-05 21:40 → J5S 07-07 18:22
PROVIDERS: ADMIT Internal Medicine; ATTEND Student in an Organized Health Care Education/Training Program
PROC: 8E0ZXY6 Isolation (ICD-10-PCS; 2020-06-29)
PROC: XW13325 Transfusion of Convalescent Plasma (Nonautologous) into Peripheral Vein, Percutaneous Approach, New Technology Group 5 (ICD-10-PCS; principal; 2020-07-01)
PROC: XW033E5 Introduction of Remdesivir Anti-infective into Peripheral Vein, Percutaneous Approach, New Technology Group 5 (ICD-10-PCS; 2020-07-01)
DX: U07.1 COVID-19 (principal); J96.01 Acute respiratory failure with hypoxia; J12.82 Pneumonia due to coronavirus disease 2019; K66.1 Hemoperitoneum; A08.39 Other viral enteritis; N17.9 Acute kidney failure, unspecified; E03.9 Hypothyroidism, unspecified; I25.10 Atherosclerotic heart disease of native coronary artery without angina pectoris; I10 Essential (primary) hypertension; E83.51 Hypocalcemia; D47.2 Monoclonal gammopathy; T45.515A Adverse effect of anticoagulants, initial encounter; G40.909 Epilepsy, unspecified, not intractable, without status epilepticus; G20 Parkinson's disease; R55 Syncope and collapse; K21.9 Gastro-esophageal reflux disease without esophagitis; K76.0 Fatty (change of) liver, not elsewhere classified; R16.2 Hepatomegaly with splenomegaly, not elsewhere classified; D64.9 Anemia, unspecified; M62.89 Other specified disorders of muscle; X58.XXXA Exposure to other specified factors, initial encounter
CPT/HCPCS: 36415; 36430; 70450-TC; 71045-TC-FY; 74174-TC; 74176-TC; 80048; 80053; 81003; 82248; 82330; 82550; 82553; 82565; 82607; 82728; 82746; 82803; 82962; 83605; 83615; 83735; 83883; 84100; 84300; 84443; 84484; 85025; 85027; 85379; 85384; 85610; 85651; 85730; 86140; 86850; 86900; 86901; 86922; 87040; 87086; 87426; 87804; 87899; 93005; 93010; 94010; 94761; 97116-GP; 97161-GP; 99285-25; C9399; J0131; J1100; P9017; P9058

== ENCOUNTER 2020-08-30 09:02 | Inpatient (IN) | payer OTHER, MEDICARE ==
[2020-08-30 10:37] LABS: BASO % 0.4 % (0-2.0); EOS % 0.7 % (0-4.5); HEMATOCRIT 16.3 % (32.4-45.2); INR 0.99 (0.83-1.09); LYMPH % 28.6 % (8-40); MCH 36.2 pg (25.7-33.7); MCHC 35.4 g/dl (32.0-36.0); MEAN CELL VOLUME 102.2 fl (80-96); MEAN PLT VOLUME 8.6 fl (7.5-11.1); MONO % 9.3 % (3.8-10.2); PLATELET COUNT 210 K/MM3 (134-434); RDW 18.9 % (11.6-15.6); WHITE BLOOD COUNT 4.3 K/mm3 (4.0-10.0)
[2020-08-30 10:45] LABS: HEMOGLOBIN 5.8 GM/dL (10.7-15.3)
[2020-08-30 11:17] LABS: POTASSIUM 3.7 mmol/L (3.5-5.1)
[2020-08-30 11:20] LABS: ALBUMIN 3.3 g/dl (3.4-5.0); BLOOD UREA NITROGEN 27.8 mg/dL (7-18)
[2020-08-30 11:23] LABS: BILIRUBIN,DIRECT 0.1 mg/dL (0.0-0.2); CREATININE 1.3 mg/dL (0.55-1.3)
[2020-08-30 11:24] LABS: BILIRUBIN,TOTAL 0.3 mg/dL (0.2-1); TOT PROT 6.6 g/dl (6.4-8.2)
[2020-08-30] MEDS ORDERED: PANTOPRAZOLE SODIUM 40 MG/100 ML BAG IVPB ONE (14:03)
[2020-08-30] MEDS: PANTOPRAZOLE SODIUM 40 MG VIAL IVPUSH SCH (15:48)
[2020-08-30 20:09] VITALS: BMI 31.3
[2020-08-30] MEDS ORDERED: PRAMIPEXOLE DI HCL 1.5 MG PO SCH (22:00)
[2020-08-30] MEDS ORDERED: PRAMIPEXOLE DIHYDROCHLORIDE 0.5 MG, PRAMIPEXOLE DIHYDROCHLORIDE 0.25 MG PO SCH (22:00)
[2020-08-30] MEDS: ALLOPURINOL 100 MG TABLET (FP) PO SCH (22:47)
[2020-08-30] MEDS ORDERED: ACETAMINOPHEN 1000 MG/100 ML VIAL (NON FORMULARY) IVPB ONE (23:27)
[2020-08-30] MEDS ORDERED: PRAMIPEXOLE DIHYDROCHLORIDE 0.25 MG TABLET PO STA ×2 (23:34→23:46)
[2020-08-31] MEDS: CALCIUM 250MG/VIT-D 125 UNITS 1 COMBO TABLET PO SCH ×3 (06:19→22:08)
[2020-08-31] MEDS: LEVOTHYROXINE NA 75 MCG TABLET (FP) PO SCH (06:19)
[2020-08-31 07:07] LABS: BASO % 0.6 % (0-2.0); EOS % 0.8 % (0-4.5); HEMATOCRIT 19.9 % (32.4-45.2); HEMOGLOBIN 7.1 GM/dL (10.7-15.3); LYMPH % 32.7 % (8-40); MCH 34.4 pg (25.7-33.7); MCHC 35.5 g/dl (32.0-36.0); MEAN CELL VOLUME 96.8 fl (80-96); MEAN PLT VOLUME 8.2 fl (7.5-11.1); MONO % 10.3 % (3.8-10.2); NEUT % 55.6 % (42.8-82.8); PLATELET COUNT 186 K/MM3 (134-434); RBC 2.06 M/mm3 (3.60-5.2); RDW 19.5 % (11.6-15.6); WHITE BLOOD COUNT 3.6 K/mm3 (4.0-10.0)
[2020-08-31 07:34] LABS: POTASSIUM 3.8 mmol/L (3.5-5.1)
[2020-08-31 07:53] LABS: CALCIUM 7.9 mg/dL (8.5-10.1)
[2020-08-31 07:54] LABS: BLOOD UREA NITROGEN 24.4 mg/dL (7-18); MAGNESIUM 2.5 mg/dL (1.8-2.4)
[2020-08-31 07:58] LABS: BILIRUBIN,TOTAL 0.3 mg/dL (0.2-1); TOT PROT 5.3 g/dl (6.4-8.2)
[2020-08-31 08:08] LABS: ALBUMIN 2.6 g/dl (3.4-5.0)
[2020-08-31] MEDS ORDERED: PT OWN MED DRAWER 7, Y5N ONE ×3 (09:26→20:47)
[2020-08-31] MEDS: PANTOPRAZOLE SODIUM 40 MG VIAL IVPUSH SCH (09:59)
[2020-08-31] MEDS: CALCITRIOL 0.25 MCG CAPSULE (FP) PO SCH (09:59)
[2020-08-31] MEDS: TORSEMIDE 100 MG TABLET PO SCH (09:59)
[2020-08-31] MEDS: ALLOPURINOL 100 MG TABLET (FP) PO SCH ×2 (10:00→22:07)
[2020-08-31] MEDS ORDERED: PEG 3350/NA SULF BICARB CL/KCL 4000 ML SOLN.RECON PO SCH (14:00)
[2020-09-01] MEDS ORDERED: PT OWN MED DRAWER 7, Y5N ONE ×5 (00:02→22:36)
[2020-09-01] MEDS: CALCIUM 250MG/VIT-D 125 UNITS 1 COMBO TABLET PO SCH ×3 (06:13→22:15)
[2020-09-01] MEDS: LEVOTHYROXINE NA 75 MCG TABLET (FP) PO SCH (06:13)
[2020-09-01 07:53] LABS: HEMATOCRIT 25.3 % (32.4-45.2); HEMOGLOBIN 8.9 GM/dL (10.7-15.3); MCH 32.9 pg (25.7-33.7); MCHC 35.1 g/dl (32.0-36.0); MEAN CELL VOLUME 93.7 fl (80-96); MEAN PLT VOLUME 8.3 fl (7.5-11.1); PLATELET COUNT 198 K/MM3 (134-434); RDW 20.7 % (11.6-15.6); WHITE BLOOD COUNT 5.1 K/mm3 (4.0-10.0)
[2020-09-01 08:14] LABS: CALCIUM 7.7 mg/dL (8.5-10.1)
[2020-09-01 08:15] LABS: BLOOD UREA NITROGEN 17.4 mg/dL (7-18)
[2020-09-01] MEDS ORDERED: PRAMIPEXOLE DIHYDROCHLORIDE 0.5 MG TABLET ONE (09:21)
[2020-09-01] MEDS ORDERED: PRAMIPEXOLE DIHYDROCHLORIDE 0.25 MG TABLET ONE (09:21)
[2020-09-01] MEDS: TORSEMIDE 100 MG TABLET PO SCH ×2 (09:32→09:37)
[2020-09-01] MEDS: PRAMIPEXOLE DIHYDROCHLORIDE 0.5 MG, PRAMIPEXOLE DIHYDROCHLORIDE 0.25 MG PO SCH (09:32)
[2020-09-01] MEDS: ALLOPURINOL 100 MG TABLET (FP) PO SCH ×2 (09:33→22:15)
[2020-09-01] MEDS: CALCITRIOL 0.25 MCG CAPSULE (FP) PO SCH (09:33)
[2020-09-01] MEDS: PANTOPRAZOLE SODIUM 40 MG VIAL IVPUSH SCH (09:33)
[2020-09-01 10:01] LABS: POTASSIUM 2.9 mmol/L (3.5-5.1)
[2020-09-01] MEDS: KCL 10 MEQ IVPB 10 MEQ/100 ML INFUS.BAG IVPB SCH ×3 (10:42→16:20)
[2020-09-01] MEDS: PRAMIPEXOLE DIHYDROCHLORIDE 0.5 MG TABLET PO SCH (17:29)
[2020-09-02] MEDS ORDERED: PT OWN MED DRAWER 7, Y5N ONE (05:57)
[2020-09-02] MEDS: LEVOTHYROXINE NA 75 MCG TABLET (FP) PO SCH (06:00)
[2020-09-02] MEDS: CALCIUM 250MG/VIT-D 125 UNITS 1 COMBO TABLET PO SCH ×3 (06:01→22:25)
[2020-09-02 08:18] LABS: HEMATOCRIT 22.8 % (32.4-45.2); MCHC 35.1 g/dl (32.0-36.0); MEAN PLT VOLUME 8.3 fl (7.5-11.1); PLATELET COUNT 168 K/MM3 (134-434); RBC 2.42 M/mm3 (3.60-5.2); RDW 20.2 % (11.6-15.6); WHITE BLOOD COUNT 4.6 K/mm3 (4.0-10.0)
[2020-09-02 08:42] LABS: POTASSIUM 3.2 mmol/L (3.5-5.1)
[2020-09-02 08:53] LABS: CALCIUM 7.3 mg/dL (8.5-10.1)
[2020-09-02 08:54] LABS: BLOOD UREA NITROGEN 17.6 mg/dL (7-18); MAGNESIUM 1.9 mg/dL (1.8-2.4)
[2020-09-02] MEDS ORDERED: PRAMIPEXOLE DIHYDROCHLORIDE 0.25 MG TABLET ONE (09:01)
[2020-09-02] MEDS ORDERED: PRAMIPEXOLE DIHYDROCHLORIDE 0.5 MG TABLET ONE (09:01)
[2020-09-02] MEDS: PANTOPRAZOLE SODIUM 40 MG VIAL IVPUSH SCH (09:13)
[2020-09-02] MEDS: CALCITRIOL 0.25 MCG CAPSULE (FP) PO SCH (09:13)
[2020-09-02] MEDS: PRAMIPEXOLE DIHYDROCHLORIDE 0.5 MG, PRAMIPEXOLE DIHYDROCHLORIDE 0.25 MG PO SCH (09:15)
[2020-09-02] MEDS: ALLOPURINOL 100 MG TABLET (FP) PO SCH ×2 (09:15→22:25)
[2020-09-02] MEDS: TORSEMIDE 100 MG TABLET PO SCH (09:16)
[2020-09-02] MEDS ORDERED: ACETAMINOPHEN 325 MG TABLET (FP) PO PRN (09:58)
[2020-09-02] MEDS ORDERED: PATIENT'S OWN MEDICATION (NON-FORMULARY) (Magnesium Oxide [Magnesium] 500 MG Capsule) PO SCH (10:00)
[2020-09-02] MEDS: POTASSIUM CHLORIDE TABS 20 MEQ TABLET.ER (FP) PO SCH (10:50)
[2020-09-02] MEDS: PANTOPRAZOLE 40 MG TABLET PO SCH ×2 (10:57→22:27)
[2020-09-02] MEDS: PRAMIPEXOLE DIHYDROCHLORIDE 0.5 MG TABLET PO SCH (17:29)
[2020-09-03] MEDS: CALCIUM 250MG/VIT-D 125 UNITS 1 COMBO TABLET PO SCH ×2 (05:41→14:48)
[2020-09-03] MEDS ORDERED: LEVOTHYROXINE NA 125 MCG TABLET (FP) PO SCH (07:00)
[2020-09-03 08:13] VITALS: TEMP 98.1
[2020-09-03] MEDS ORDERED: PRAMIPEXOLE DIHYDROCHLORIDE 0.25 MG TABLET ONE (08:46)
[2020-09-03] MEDS ORDERED: PRAMIPEXOLE DIHYDROCHLORIDE 0.5 MG TABLET ONE (08:46)
[2020-09-03 09:03] LABS: BASO % 0.4 % (0-2.0); EOS % 0.3 % (0-4.5); HEMATOCRIT 24.8 % (32.4-45.2); HEMOGLOBIN 8.5 GM/dL (10.7-15.3); LYMPH % 32.2 % (8-40); MCH 32.8 pg (25.7-33.7); MCHC 34.4 g/dl (32.0-36.0); MEAN CELL VOLUME 95.3 fl (80-96); MEAN PLT VOLUME 8.4 fl (7.5-11.1); MONO % 7.3 % (3.8-10.2); NEUT % 59.8 % (42.8-82.8); PLATELET COUNT 177 K/MM3 (134-434); RBC 2.61 M/mm3 (3.60-5.2); RDW 19.7 % (11.6-15.6); WHITE BLOOD COUNT 4.4 K/mm3 (4.0-10.0)
[2020-09-03] MEDS: PANTOPRAZOLE 40 MG TABLET PO SCH (09:03)
[2020-09-03] MEDS: POTASSIUM CHLORIDE TABS 20 MEQ TABLET.ER (FP) PO SCH (09:03)
[2020-09-03] MEDS: ALLOPURINOL 100 MG TABLET (FP) PO SCH (09:04)
[2020-09-03] MEDS: TORSEMIDE 100 MG TABLET PO SCH (09:04)
[2020-09-03] MEDS: CALCITRIOL 0.25 MCG CAPSULE (FP) PO SCH (09:04)
[2020-09-03] MEDS: PRAMIPEXOLE DIHYDROCHLORIDE 0.5 MG, PRAMIPEXOLE DIHYDROCHLORIDE 0.25 MG PO SCH (09:04)
[2020-09-03 09:39] LABS: POTASSIUM 3.3 mmol/L (3.5-5.1)
[2020-09-03 09:52] LABS: ALBUMIN 2.9 g/dl (3.4-5.0); BLOOD UREA NITROGEN 16.8 mg/dL (7-18)
[2020-09-03 09:55] LABS: CREATININE 1.1 mg/dL (0.55-1.3)
[2020-09-03 09:56] LABS: BILIRUBIN,TOTAL 0.4 mg/dL (0.2-1)
[2020-09-03 14:51] VITALS: BP 130/59; PULSE 79
[2020-09-04 19:21] LABS: IGA IMMUNOGLOBULIN 39 mg/dL (64-422); IGG QN IMMUNOGLOBULIN 874 mg/dL (586-1602); IGM QN SERUM 62 mg/dL (26-217)
== END 2020-09-03 16:49 | disposition home or self-care (01) | DRG 812 ==
LOC: JER 09:02 → SUPCPDRO 09:02 → JERBED 12:18 → J7W 16:07
PROVIDERS: ADMIT Family Medicine; ATTEND Family Medicine
PROC: 30233N1 Transfusion of Nonautologous Red Blood Cells into Peripheral Vein, Percutaneous Approach (ICD-10-PCS; 2020-08-30)
PROC: 0DB98ZX Excision of Duodenum, Via Natural or Artificial Opening Endoscopic, Diagnostic (ICD-10-PCS; 2020-09-01)
PROC: 0DB68ZX Excision of Stomach, Via Natural or Artificial Opening Endoscopic, Diagnostic (ICD-10-PCS; 2020-09-01)
PROC: 0DJD8ZZ Inspection of Lower Intestinal Tract, Via Natural or Artificial Opening Endoscopic (ICD-10-PCS; principal; 2020-09-01 12:00)
DX: D64.9 Anemia, unspecified (principal); I48.91 Unspecified atrial fibrillation; I25.10 Atherosclerotic heart disease of native coronary artery without angina pectoris; K31.819 Angiodysplasia of stomach and duodenum without bleeding; K57.30 Diverticulosis of large intestine without perforation or abscess without bleeding; K29.00 Acute gastritis without bleeding; E87.6 Hypokalemia; K21.9 Gastro-esophageal reflux disease without esophagitis; I10 Essential (primary) hypertension; E78.5 Hyperlipidemia, unspecified; D47.2 Monoclonal gammopathy; K76.0 Fatty (change of) liver, not elsewhere classified; E03.9 Hypothyroidism, unspecified; E83.51 Hypocalcemia; Z86.16 Personal history of COVID-19; E05.80 Other thyrotoxicosis without thyrotoxic crisis or storm
CPT/HCPCS: 36415; 36430; 36511; 71045-TC-FY; 80048; 80053; 82248; 82272; 82607; 82728; 82784; 83010; 83540; 83550; 83615; 83735; 83883; 84155; 84165; 84443; 85025; 85027; 85045; 85610; 86334; 86850; 86880; 86900; 86901; 86922; 88305-TC; 93005; 93010; 97161-GP; 99285-25; C9803; P9038; P9058; U0003

== ENCOUNTER 2020-09-22 07:15 | Day surgery (SDC) | payer OTHER, MEDICARE ==
[2020-09-22 07:44] LABS: BASO % 0.2 % (0-2.0); LYMPH % 31.5 % (8-40); MCH 33.2 pg (25.7-33.7); MCHC 35.4 g/dl (32.0-36.0); MEAN CELL VOLUME 93.7 fl (80-96); MEAN PLT VOLUME 7.6 fl (7.5-11.1); NEUT % 60.3 % (42.8-82.8); PLATELET COUNT 259 K/MM3 (134-434); RBC 1.92 M/mm3 (3.60-5.2); RDW 18.9 % (11.6-15.6); WHITE BLOOD COUNT 7.4 K/mm3 (4.0-10.0)
[2020-09-22 08:10] LABS: POTASSIUM 3.8 mmol/L (3.5-5.1)
[2020-09-22 08:12] LABS: ALBUMIN 3.3 g/dl (3.4-5.0); BLOOD UREA NITROGEN 22.7 mg/dL (7-18); CALCIUM 8.5 mg/dL (8.5-10.1); MAGNESIUM 2.4 mg/dL (1.8-2.4)
[2020-09-22 08:15] LABS: CREATININE 1.2 mg/dL (0.55-1.3)
[2020-09-22 08:17] LABS: BILIRUBIN,TOTAL 0.3 mg/dL (0.2-1); TOT PROT 6.7 g/dl (6.4-8.2)
[2020-09-22 08:18] LABS: HEMOGLOBIN 6.4 GM/dL (10.7-15.3)
[2020-09-22 14:53] LABS: BASO % 0.1 % (0-2.0); HEMATOCRIT 18.8 % (32.4-45.2); LYMPH % 25.4 % (8-40); MCHC 34.7 g/dl (32.0-36.0); MEAN CELL VOLUME 92.4 fl (80-96); MEAN PLT VOLUME 7.9 fl (7.5-11.1); MONO % 8.2 % (3.8-10.2); NEUT % 66.3 % (42.8-82.8); PLATELET COUNT 195 K/MM3 (134-434); RBC 2.03 M/mm3 (3.60-5.2); RDW 18.9 % (11.6-15.6); WHITE BLOOD COUNT 4.9 K/mm3 (4.0-10.0)
[2020-09-22 14:55] LABS: HEMOGLOBIN 6.5 GM/dL (10.7-15.3)
[2020-09-22 16:08] VITALS: BP 106/48; PULSE 71; TEMP 97.9
== END 2020-09-22 14:00 | disposition home or self-care (01) ==
LOC: JONCBLOOD 07:15
PROVIDERS: ATTEND Internal Medicine Hematology & Oncology
PROC: 30233N1 Transfusion of Nonautologous Red Blood Cells into Peripheral Vein, Percutaneous Approach (ICD-10-PCS; principal; 2020-09-22)
DX: D64.9 Anemia, unspecified (principal)
CPT/HCPCS: 36415; 36430; 36511; 80053; 83010; 83615; 83735; 85025; 85045; 86850; 86900; 86901; 86922; P9038; P9058

== ENCOUNTER 2020-09-28 07:39 | Day surgery (SDC) | payer OTHER, MEDICARE ==
[2020-09-28 08:55] LABS: BASO % 0.2 % (0-2.0); MCH 31.8 pg (25.7-33.7); MCHC 34.5 g/dl (32.0-36.0); MEAN CELL VOLUME 92.2 fl (80-96); MEAN PLT VOLUME 8.4 fl (7.5-11.1); MONO % 7.2 % (3.8-10.2); NEUT % 60.6 % (42.8-82.8); PLATELET COUNT 177 K/MM3 (134-434); RBC 1.95 M/mm3 (3.60-5.2); RDW 18.5 % (11.6-15.6); WHITE BLOOD COUNT 5.3 K/mm3 (4.0-10.0)
[2020-09-28 09:05] LABS: HEMOGLOBIN 6.2 GM/dL (10.7-15.3)
[2020-09-28] MEDS ORDERED: FUROSEMIDE 20 MG TABLET (FP) PO ONE (10:00)
[2020-09-28 17:46] VITALS: BP 110/40; PULSE 83; TEMP 98.3
[2020-09-28 17:51] LABS: BASO % 0.2 % (0-2.0); HEMATOCRIT 25.7 % (32.4-45.2); HEMOGLOBIN 8.7 GM/dL (10.7-15.3); LYMPH % 29.2 % (8-40); MCH 31.3 pg (25.7-33.7); MCHC 33.7 g/dl (32.0-36.0); MEAN CELL VOLUME 92.7 fl (80-96); MEAN PLT VOLUME 8.2 fl (7.5-11.1); MONO % 8.3 % (3.8-10.2); NEUT % 62.3 % (42.8-82.8); PLATELET COUNT 174 K/MM3 (134-434); RBC 2.77 M/mm3 (3.60-5.2); RDW 16.2 % (11.6-15.6); WHITE BLOOD COUNT 5.8 K/mm3 (4.0-10.0)
== END 2020-09-28 17:30 | disposition home or self-care (01) ==
LOC: JONCBLOOD 07:39
PROVIDERS: ATTEND Internal Medicine Hematology & Oncology
PROC: 30233N1 Transfusion of Nonautologous Red Blood Cells into Peripheral Vein, Percutaneous Approach (ICD-10-PCS; principal; 2020-09-28)
DX: D64.9 Anemia, unspecified (principal)
CPT/HCPCS: 36415; 36430; 36511; 85025; 86850; 86900; 86901; 86922; P9038; P9058

== ENCOUNTER 2020-10-20 13:58 | Inpatient (IN) | payer OTHER, MEDICARE ==
[2020-10-20 15:33] LABS: BASO % 0.2 % (0-2.0); HEMATOCRIT 16.7 % (32.4-45.2); LYMPH % 25.1 % (8-40); MCH 30.9 pg (25.7-33.7); MCHC 34.4 g/dl (32.0-36.0); MEAN CELL VOLUME 89.8 fl (80-96); MEAN PLT VOLUME 8.5 fl (7.5-11.1); NEUT % 66.7 % (42.8-82.8); PLATELET COUNT 237 K/MM3 (134-434); RBC 1.86 M/mm3 (3.60-5.2); RDW 16.8 % (11.6-15.6); WHITE BLOOD COUNT 6.3 K/mm3 (4.0-10.0)
[2020-10-20 15:36] LABS: HEMOGLOBIN 5.7 GM/dL (10.7-15.3)
[2020-10-20 15:59] LABS: CALCIUM 7.1 mg/dL (8.5-10.1)
[2020-10-20 16:00] LABS: ALBUMIN 3.1 g/dl (3.4-5.0); BLOOD UREA NITROGEN 26.4 mg/dL (7-18); MAGNESIUM 2.7 mg/dL (1.8-2.4)
[2020-10-20 16:03] LABS: CREATININE 1.3 mg/dL (0.55-1.3)
[2020-10-20 16:05] LABS: BILIRUBIN,TOTAL 0.4 mg/dL (0.2-1); TOT PROT 6.5 g/dl (6.4-8.2)
[2020-10-20] MEDS ORDERED: CALCIUM GLUCONATE 10% - 1,000 MG/10 ML VIAL IVPB ONE (16:29)
[2020-10-20] MEDS ORDERED: FERROUS SO4 325 MG TABLET (FP) PO ONE (16:54)
[2020-10-20] MEDS ORDERED: POTASSIUM CHLORIDE TABS 20 MEQ TABLET.ER (FP) PO ONE ×2 (16:54→18:09)
[2020-10-20 17:27] LABS: RETICULOCYTES 0.19 % (0.5-1.5)
[2020-10-20] MEDS ORDERED: FERROUS SO4 325 MG TABLET (FP) ONE (18:09)
[2020-10-20 19:59] LABS: PHOSPHOROUS 5.2 mg/dL (2.5-4.9)
[2020-10-20] MEDS ORDERED: FUROSEMIDE 40 MG/4 ML INJECTABLE VIAL IVPUSH ONE (20:02)
[2020-10-20] MEDS ORDERED: FUROSEMIDE 40 MG/4 ML INJECTABLE VIAL ONE (20:38)
[2020-10-20 21:48] LABS: PLATELET ESTIMATE NORMAL
[2020-10-21 01:39] VITALS: BMI 32.2
[2020-10-21] MEDS: CALCIUM 250MG/VIT-D 125 UNITS 1 COMBO TABLET PO SCH ×3 (02:19→22:20)
[2020-10-21] MEDS: LEVOTHYROXINE NA 125 MCG TABLET (FP) PO SCH (07:41)
[2020-10-21 08:36] LABS: CHLORIDE 104 mmol/L (98-107); SODIUM 140 mmol/L (136-145)
[2020-10-21 08:42] LABS: ANION GAP 7 MMOL/L (8-16); BLOOD UREA NITROGEN 25.2 mg/dL (7-18); CO2 29 mmol/L (21-32); GLUCOSE,RANDOM 94 mg/dL (74-106); MAGNESIUM 2.3 mg/dL (1.8-2.4)
[2020-10-21 08:43] LABS: HEMATOCRIT 20.1 % (32.4-45.2); HEMOGLOBIN 7.1 GM/dL (10.7-15.3); MCH 31.2 pg (25.7-33.7); MCHC 35.4 g/dl (32.0-36.0); MEAN CELL VOLUME 88.2 fl (80-96); MEAN PLT VOLUME 8.1 fl (7.5-11.1); PLATELET COUNT 188 K/MM3 (134-434); RBC 2.28 M/mm3 (3.60-5.2); RDW 15.6 % (11.6-15.6); WHITE BLOOD COUNT 5.6 K/mm3 (4.0-10.0)
[2020-10-21 08:45] LABS: CREATININE 1.1 mg/dL (0.55-1.3)
[2020-10-21 08:47] LABS: CALCIUM 6.5 mg/dL (8.5-10.1)
[2020-10-21 09:23] LABS: N-TERMINAL BNP 338.8 pg/ml (5-450)
[2020-10-21] MEDS: TORSEMIDE 100 MG TABLET PO SCH (10:51)
[2020-10-21] MEDS: PANTOPRAZOLE SODIUM 40 MG VIAL IVPUSH SCH ×2 (10:52→22:19)
[2020-10-21] MEDS: MAGNESIUM OXIDE 400 MG TABLET (FP) PO SCH (22:19)
[2020-10-22] MEDS: LEVOTHYROXINE NA 125 MCG TABLET (FP) PO SCH (06:00)
[2020-10-22 07:51] LABS: BASO % 0.2 % (0-2.0); HEMATOCRIT 26.2 % (32.4-45.2); HEMOGLOBIN 9.3 GM/dL (10.7-15.3); LYMPH % 29.1 % (8-40); MCH 30.2 pg (25.7-33.7); MCHC 35.4 g/dl (32.0-36.0); MEAN CELL VOLUME 85.5 fl (80-96); MEAN PLT VOLUME 7.8 fl (7.5-11.1); MONO % 7.9 % (3.8-10.2); NEUT % 62.8 % (42.8-82.8); PLATELET COUNT 192 K/MM3 (134-434); RBC 3.06 M/mm3 (3.60-5.2); RDW 15.9 % (11.6-15.6); WHITE BLOOD COUNT 5.7 K/mm3 (4.0-10.0)
[2020-10-22 07:55] LABS: INR 1.08 (0.83-1.09)
[2020-10-22 07:57] LABS: ACTIVATED PTT 26.1 SECONDS (25.2-36.5)
[2020-10-22 08:07] LABS: CHLORIDE 105 mmol/L (98-107); SODIUM 142 mmol/L (136-145)
[2020-10-22 08:15] LABS: ALBUMIN 2.8 g/dl (3.4-5.0); ANION GAP 8 MMOL/L (8-16); BLOOD UREA NITROGEN 23.3 mg/dL (7-18); CO2 30 mmol/L (21-32); GLUCOSE,RANDOM 92 mg/dL (74-106)
[2020-10-22 08:18] LABS: CREATININE 1.1 mg/dL (0.55-1.3); IRON SERUM 199 ug/dL (50-175); SGOT/AST 37 U/L (15-37); SGPT/ALT 32 U/L (13-61); TOTAL IRON BINDING CAPACITY 224 ug/dL (250-450)
[2020-10-22 08:20] LABS: BILIRUBIN,TOTAL 0.4 mg/dL (0.2-1); TOT PROT 5.7 g/dl (6.4-8.2)
[2020-10-22 08:21] LABS: ALK PHOS 111 U/L (45-117)
[2020-10-22] MEDS ORDERED: FUROSEMIDE 40 MG/4 ML INJECTABLE VIAL ONE (09:05)
[2020-10-22] MEDS ORDERED: POTASSIUM CHLORIDE TABS 20 MEQ TABLET.ER (FP) PO ONE (10:15)
[2020-10-22] MEDS: CALCIUM 500MG/VIT-D 200 UNITS COMBO TABLET (FP) PO SCH ×2 (10:26→22:14)
[2020-10-22] MEDS: TORSEMIDE 100 MG TABLET PO SCH (10:27)
[2020-10-22] MEDS: PANTOPRAZOLE SODIUM 40 MG VIAL IVPUSH SCH ×2 (10:27→22:14)
[2020-10-22] MEDS: MAGNESIUM OXIDE 400 MG TABLET (FP) PO SCH ×2 (10:27→22:14)
[2020-10-22] MEDS: CALCITRIOL 0.25 MCG CAPSULE (FP) PO SCH (10:27)
[2020-10-22] MEDS ORDERED: PT OWN MED DRAWER 7, Y5N ONE (10:34)
[2020-10-22] MEDS ORDERED: FUROSEMIDE 40 MG/4 ML INJECTABLE VIAL IVPUSH ONE (23:00)
[2020-10-23] MEDS: LEVOTHYROXINE NA 125 MCG TABLET (FP) PO SCH (06:17)
[2020-10-23] MEDS ORDERED: LIDOCAINE HCL 1%, 10 MG/ML (20ML VIAL) ONE (09:30)
[2020-10-23] MEDS ORDERED: PANTOPRAZOLE 20 MG TABLET PO SCH (10:00)
[2020-10-23 10:54] LABS: HEMOGLOBIN 10.5 GM/dL (10.7-15.3); MCH 30.1 pg (25.7-33.7); MCHC 34.9 g/dl (32.0-36.0); MEAN CELL VOLUME 86.3 fl (80-96); MEAN PLT VOLUME 7.4 fl (7.5-11.1); PLATELET COUNT 214 K/MM3 (134-434); RBC 3.47 M/mm3 (3.60-5.2); RDW 15.8 % (11.6-15.6); WHITE BLOOD COUNT 7.6 K/mm3 (4.0-10.0)
[2020-10-23 11:07] LABS: CHLORIDE 102 mmol/L (98-107); SODIUM 139 mmol/L (136-145)
[2020-10-23] MEDS: CALCITRIOL 0.25 MCG CAPSULE (FP) PO SCH (11:09)
[2020-10-23] MEDS: CALCIUM 500MG/VIT-D 200 UNITS COMBO TABLET (FP) PO SCH (11:09)
[2020-10-23] MEDS: MAGNESIUM OXIDE 400 MG TABLET (FP) PO SCH (11:09)
[2020-10-23] MEDS: TORSEMIDE 100 MG TABLET PO SCH (11:09)
[2020-10-23 11:10] LABS: ALBUMIN 3.2 g/dl (3.4-5.0); ANION GAP 7 MMOL/L (8-16); BLOOD UREA NITROGEN 25.7 mg/dL (7-18); CO2 30 mmol/L (21-32); GLUCOSE,RANDOM 96 mg/dL (74-106)
[2020-10-23 11:14] LABS: CREATININE 1.1 mg/dL (0.55-1.3); SGOT/AST 41 U/L (15-37); SGPT/ALT 34 U/L (13-61)
[2020-10-23 11:16] LABS: BILIRUBIN,TOTAL 0.4 mg/dL (0.2-1); TOT PROT 6.5 g/dl (6.4-8.2)
[2020-10-23 11:17] LABS: ALK PHOS 124 U/L (45-117)
[2020-10-23 11:20] LABS: CALCIUM 6.1 mg/dL (8.5-10.1)
[2020-10-23 15:02] VITALS: BP 126/57; PULSE 74; TEMP 98.4
== END 2020-10-23 18:33 | disposition home or self-care (01) | DRG 812 ==
LOC: JER 13:58 → JERBED 16:31 → J4W 10-21 00:17
PROVIDERS: ADMIT Hospitalist; ATTEND Family Medicine
PROC: 30233N1 Transfusion of Nonautologous Red Blood Cells into Peripheral Vein, Percutaneous Approach (ICD-10-PCS; principal; 2020-10-20)
PROC: 07DR3ZX Extraction of Iliac Bone Marrow, Percutaneous Approach, Diagnostic (ICD-10-PCS; 2020-10-23)
DX: D64.9 Anemia, unspecified (principal); K55.20 Angiodysplasia of colon without hemorrhage; I25.10 Atherosclerotic heart disease of native coronary artery without angina pectoris; K21.9 Gastro-esophageal reflux disease without esophagitis; I10 Essential (primary) hypertension; E78.5 Hyperlipidemia, unspecified; R16.2 Hepatomegaly with splenomegaly, not elsewhere classified; K76.0 Fatty (change of) liver, not elsewhere classified; E03.9 Hypothyroidism, unspecified; E88.09 Other disorders of plasma-protein metabolism, not elsewhere classified; M25.471 Effusion, right ankle; M25.472 Effusion, left ankle; E83.51 Hypocalcemia; E87.6 Hypokalemia; K57.30 Diverticulosis of large intestine without perforation or abscess without bleeding
CPT/HCPCS: 36415; 36430; 80048; 80053; 80076; 82232; 82728; 82784; 83010; 83540; 83550; 83615; 83735; 83880; 83883; 84100; 84155; 84165; 84439; 84443; 84550; 85025; 85027; 85045; 85384; 85610; 85730; 86850; 86880; 86900; 86901; 86922; 93005; 93010; 93306-TC; 93970-TC; 99285-25; C9803; P9058; U0003; U0005

== ENCOUNTER 2020-11-13 07:46 | Day surgery (SDC) | payer OTHER, MEDICARE ==
[2020-11-13 09:23] LABS: BASO % 0.2 % (0-2.0); EOS % 0.1 % (0-4.5); HEMATOCRIT 17.6 % (32.4-45.2); LYMPH % 19.5 % (8-40); MCH 29.4 pg (25.7-33.7); MCHC 34.5 g/dl (32.0-36.0); MEAN CELL VOLUME 85.2 fl (80-96); MONO % 6.8 % (3.8-10.2); NEUT % 73.4 % (42.8-82.8); PLATELET COUNT 224 K/MM3 (134-434); RBC 2.07 M/mm3 (3.60-5.2); RDW 14.5 % (11.6-15.6); WHITE BLOOD COUNT 5.7 K/mm3 (4.0-10.0)
[2020-11-13 09:25] LABS: HEMOGLOBIN 6.1 GM/dL (10.7-15.3)
[2020-11-13 09:53] LABS: BLOOD UREA NITROGEN 26.8 mg/dL (7-18); CALCIUM 7.3 mg/dL (8.5-10.1); MAGNESIUM 2.3 mg/dL (1.8-2.4)
[2020-11-13 09:56] LABS: CREATININE 1.3 mg/dL (0.55-1.3)
[2020-11-13 09:57] LABS: BILIRUBIN,TOTAL 0.4 mg/dL (0.2-1); TOT PROT 6.1 g/dl (6.4-8.2)
[2020-11-13] MEDS ORDERED: POTASSIUM CHLORIDE TABS 20 MEQ TABLET.ER (FP) PO ONE (15:55)
[2020-11-13] MEDS ORDERED: FUROSEMIDE 40 MG/4 ML INJECTABLE VIAL IVPUSH STA (15:55)
[2020-11-13 17:43] VITALS: BP 98/44; PULSE 77; TEMP 97.8
[2020-11-13 18:21] LABS: HEMATOCRIT 24.5 % (32.4-45.2); HEMOGLOBIN 8.5 GM/dL (10.7-15.3); MCH 29.7 pg (25.7-33.7); MCHC 34.8 g/dl (32.0-36.0); MEAN CELL VOLUME 85.3 fl (80-96); MEAN PLT VOLUME 7.7 fl (7.5-11.1); PLATELET COUNT 223 K/MM3 (134-434); RBC 2.88 M/mm3 (3.60-5.2); RDW 14.3 % (11.6-15.6); WHITE BLOOD COUNT 7.2 K/mm3 (4.0-10.0)
== END 2020-11-13 17:51 | disposition home or self-care (01) ==
LOC: JONCBLOOD 07:46
PROVIDERS: ATTEND Internal Medicine Hematology & Oncology
PROC: 30233N1 Transfusion of Nonautologous Red Blood Cells into Peripheral Vein, Percutaneous Approach (ICD-10-PCS; principal; 2020-11-13)
DX: D64.9 Anemia, unspecified (principal); D47.2 Monoclonal gammopathy
CPT/HCPCS: 36415; 36430; 80053; 82728; 83540; 83550; 83735; 85025; 85027; 86850; 86900; 86901; 86922; P9058

== ENCOUNTER 2020-11-30 08:00 | Day surgery (SDC) | payer OTHER, MEDICARE ==
[2020-11-30 08:57] LABS: BASO % 0.3 % (0-2.0); EOS % 0.1 % (0-4.5); HEMATOCRIT 15.5 % (32.4-45.2); LYMPH % 26.3 % (8-40); MCH 29.6 pg (25.7-33.7); MCHC 35.8 g/dl (32.0-36.0); MEAN CELL VOLUME 82.8 fl (80-96); MEAN PLT VOLUME 7.5 fl (7.5-11.1); MONO % 8.8 % (3.8-10.2); NEUT % 64.5 % (42.8-82.8); PLATELET COUNT 187 K/MM3 (134-434); RBC 1.87 M/mm3 (3.60-5.2); RDW 13.9 % (11.6-15.6); WHITE BLOOD COUNT 4.9 K/mm3 (4.0-10.0)
[2020-11-30 09:00] LABS: HEMOGLOBIN 5.5 GM/dL (10.7-15.3)
[2020-11-30] MEDS ORDERED: POTASSIUM CHLORIDE TABS 20 MEQ TABLET.ER (FP) PO ONE (10:00)
[2020-11-30] MEDS ORDERED: FUROSEMIDE 40 MG/4 ML INJECTABLE VIAL IVPUSH ONE (10:00)
[2020-11-30 18:00] VITALS: BP 133/68; PULSE 87; TEMP 98.6
[2020-11-30 19:58] LABS: BASO % 0.2 % (0-2.0); EOS % 0.2 % (0-4.5); HEMATOCRIT 24.5 % (32.4-45.2); HEMOGLOBIN 8.7 GM/dL (10.7-15.3); LYMPH % 26.5 % (8-40); MCH 30.1 pg (25.7-33.7); MCHC 35.5 g/dl (32.0-36.0); MEAN CELL VOLUME 84.7 fl (80-96); MEAN PLT VOLUME 7.8 fl (7.5-11.1); NEUT % 65.1 % (42.8-82.8); PLATELET COUNT 196 K/MM3 (134-434); RBC 2.89 M/mm3 (3.60-5.2); WHITE BLOOD COUNT 6.7 K/mm3 (4.0-10.0)
== END 2020-12-01 07:00 | disposition home or self-care (01) ==
LOC: JONCBLOOD 08:00
PROVIDERS: ATTEND Internal Medicine Hematology & Oncology
PROC: 30233N1 Transfusion of Nonautologous Red Blood Cells into Peripheral Vein, Percutaneous Approach (ICD-10-PCS; principal; 2020-11-30)
DX: D64.9 Anemia, unspecified (principal); D47.2 Monoclonal gammopathy
CPT/HCPCS: 36415; 36430; 36511; 85025; 86850; 86900; 86901; 86922; P9038; P9058

== ENCOUNTER 2020-12-15 07:54 | Day surgery (SDC) | payer OTHER, MEDICARE ==
[2020-12-15 09:38] LABS: BASO % 0.3 % (0-2.0); EOS % 0.3 % (0-4.5); HEMATOCRIT 17.3 % (32.4-45.2); LYMPH % 23.5 % (8-40); MCH 29.3 pg (25.7-33.7); MCHC 34.2 g/dl (32.0-36.0); MEAN CELL VOLUME 85.6 fl (80-96); MEAN PLT VOLUME 8.1 fl (7.5-11.1); MONO % 7.3 % (3.8-10.2); NEUT % 68.6 % (42.8-82.8); PLATELET COUNT 191 10^3/uL (134-434); RBC 2.02 M/mm3 (3.60-5.2); RDW 14.3 % (11.6-15.6); WHITE BLOOD COUNT 5.4 K/mm3 (4.0-10.0)
[2020-12-15 09:42] LABS: HEMOGLOBIN 5.9 GM/dL (10.7-15.3)
[2020-12-15 10:08] LABS: ALBUMIN 3.3 g/dl (3.4-5.0); BLOOD UREA NITROGEN 33.8 mg/dL (7-18); CALCIUM 8.4 mg/dL (8.5-10.1); MAGNESIUM 2.6 mg/dL (1.8-2.4)
[2020-12-15 10:11] LABS: CREATININE 1.3 mg/dL (0.55-1.3)
[2020-12-15 10:12] LABS: BILIRUBIN,TOTAL 0.3 mg/dL (0.2-1); TOT PROT 6.4 g/dl (6.4-8.2)
[2020-12-15] MEDS ORDERED: FUROSEMIDE 40 MG/4 ML INJECTABLE VIAL IVPUSH ONE (15:15)
[2020-12-15 17:58] VITALS: BP 116/60; PULSE 73; TEMP 98.1
[2020-12-15 19:06] LABS: HEMOGLOBIN 8.7 GM/dL (10.7-15.3); MCH 29.6 pg (25.7-33.7); MCHC 34.8 g/dl (32.0-36.0); MEAN CELL VOLUME 85.2 fl (80-96); PLATELET COUNT 191 10^3/uL (134-434); RBC 2.93 M/mm3 (3.60-5.2); RDW 14.9 % (11.6-15.6); WHITE BLOOD COUNT 6.5 K/mm3 (4.0-10.0)
== END 2020-12-15 18:35 | disposition home or self-care (01) ==
LOC: JONCBLOOD 07:54
PROVIDERS: ATTEND Internal Medicine Hematology & Oncology
PROC: 30233N1 Transfusion of Nonautologous Red Blood Cells into Peripheral Vein, Percutaneous Approach (ICD-10-PCS; principal; 2020-12-15)
DX: C90.00 Multiple myeloma not having achieved remission (principal); E11.9 Type 2 diabetes mellitus without complications; D50.0 Iron deficiency anemia secondary to blood loss (chronic); K57.30 Diverticulosis of large intestine without perforation or abscess without bleeding; Z79.4 Long term (current) use of insulin
CPT/HCPCS: 36415; 36430; 36511; 80053; 83735; 85025; 85027; 86850; 86900; 86901; 86922; P9038; P9058

== ENCOUNTER 2020-12-29 07:40 | Day surgery (SDC) | payer OTHER, MEDICARE ==
[2020-12-29] MEDS ORDERED: POTASSIUM CHLORIDE TABS 20 MEQ TABLET.ER (FP) PO ONE (08:00)
[2020-12-29] MEDS ORDERED: FUROSEMIDE 20 MG TABLET (FP) PO ONE (08:00)
[2020-12-29 08:41] LABS: BASO % 0.2 % (0-2.0); EOS % 0.2 % (0-4.5); HEMATOCRIT 19.7 % (32.4-45.2); MCH 29.3 pg (25.7-33.7); MEAN CELL VOLUME 86.2 fl (80-96); MEAN PLT VOLUME 7.7 fl (7.5-11.1); MONO % 8.1 % (3.8-10.2); NEUT % 75.5 % (42.8-82.8); PLATELET COUNT 200 10^3/uL (134-434); RBC 2.28 M/mm3 (3.60-5.2); RDW 15.1 % (11.6-15.6); WHITE BLOOD COUNT 7.9 K/mm3 (4.0-10.0)
[2020-12-29 08:52] LABS: HEMOGLOBIN 6.7 GM/dL (10.7-15.3)
[2020-12-29 12:42] LABS: ANISOCYTOSIS 0; MACROCYTOSIS 0; PLATELET ESTIMATE NORMAL
[2020-12-29 17:33] VITALS: BP 124/46; PULSE 73; TEMP 98.1
[2020-12-29 17:34] LABS: HEMATOCRIT 26.2 % (32.4-45.2); HEMOGLOBIN 9.1 GM/dL (10.7-15.3); MCH 29.4 pg (25.7-33.7); MCHC 34.8 g/dl (32.0-36.0); MEAN CELL VOLUME 84.4 fl (80-96); MEAN PLT VOLUME 7.6 fl (7.5-11.1); PLATELET COUNT 200 10^3/uL (134-434); RDW 15.2 % (11.6-15.6); WHITE BLOOD COUNT 9.9 K/mm3 (4.0-10.0)
== END 2020-12-29 08:00 | disposition home or self-care (01) ==
LOC: JONCBLOOD 07:40
PROVIDERS: ATTEND Internal Medicine Hematology & Oncology
PROC: 30233N1 Transfusion of Nonautologous Red Blood Cells into Peripheral Vein, Percutaneous Approach (ICD-10-PCS; principal; 2020-12-29)
DX: C90.00 Multiple myeloma not having achieved remission (principal)
CPT/HCPCS: 36415; 36430; 85025; 85027; 86850; 86900; 86901; 86922; P9058

== ENCOUNTER 2021-01-12 15:38 | Observation (INO) | payer OTHER, MEDICARE ==
[2021-01-12 18:28] LABS: INR 1.03 (0.83-1.09); PROTHROMBIN TIME (PATIENT) 12.5 SEC (9.7-13.0)
[2021-01-12 18:30] LABS: ACTIVATED PTT 26.4 SECONDS (25.2-36.5)
[2021-01-12] MEDS ORDERED: ALPRAZOLAM PO SCH (22:00)
[2021-01-12] MEDS ORDERED: CALCIUM 500MG/VIT-D 200 UNITS COMBO TABLET (FP) PO SCH (22:00)
[2021-01-12] MEDS ORDERED: ERGOCALCIFEROL (VIT D2) 50,000 UNIT (1.25 MG) CAPSULE PO SCH (22:00)
[2021-01-12] MEDS ORDERED: ALPRAZolam 1 MG TABLET PO PRN ×2 (22:10→23:17)
[2021-01-12] MEDS ORDERED: PANTOPRAZOLE 20 MG TABLET PO ONE (22:44)
[2021-01-12] MEDS: PANTOPRAZOLE 20 MG TABLET PO SCH (22:52)
[2021-01-12] MEDS: ALLOPURINOL 100 MG TABLET (FP) PO SCH (22:53)
[2021-01-12 23:55] VITALS: BMI 32.0
[2021-01-13 09:01] LABS: BASO % 0.3 % (0-2.0); EOS % 0.2 % (0-4.5); HEMATOCRIT 25.3 % (32.4-45.2); HEMOGLOBIN 8.7 GM/dL (10.7-15.3); LYMPH % 19.6 % (8-40); MCHC 34.4 g/dl (32.0-36.0); MEAN PLT VOLUME 7.3 fl (7.5-11.1); NEUT % 68.9 % (42.8-82.8); PLATELET COUNT 160 10^3/uL (134-434); RDW 14.7 % (11.6-15.6); WHITE BLOOD COUNT 4.5 K/mm3 (4.0-10.0)
[2021-01-13 09:24] LABS: CALCIUM 8.4 mg/dL (8.5-10.1)
[2021-01-13 09:27] LABS: CREATININE 1.5 mg/dL (0.55-1.3)
[2021-01-13 09:28] LABS: BILIRUBIN,TOTAL 0.4 mg/dL (0.2-1)
[2021-01-13] MEDS ORDERED: [UNRECOGNIZED DRUG - OTHER] PO SCH (10:00)
[2021-01-13] MEDS ORDERED: ERGOCALCIFEROL (VIT D2) 50,000 UNIT (1.25 MG) CAPSULE PO SCH (10:00)
[2021-01-13] MEDS ORDERED: TORSEMIDE 100 MG TABLET PO SCH ×2 (10:00)
[2021-01-13] MEDS ORDERED: POTASSIUM CHLORIDE TABS 20 MEQ TABLET.ER (FP) PO SCH (10:00)
[2021-01-13] MEDS: PANTOPRAZOLE 20 MG TABLET PO SCH (10:52)
[2021-01-13] MEDS: ALLOPURINOL 100 MG TABLET (FP) PO SCH (10:52)
[2021-01-13 11:42] VITALS: BP 116/58; PULSE 85; TEMP 98
== END 2021-01-13 13:07 | disposition home or self-care (01) ==
LOC: JER 15:38 → INTOOBSV 18:34 → JERBED 18:34 → J8W 23:23
PROVIDERS: ADMIT Internal Medicine; ATTEND Family Medicine
PROC: 30233N1 Transfusion of Nonautologous Red Blood Cells into Peripheral Vein, Percutaneous Approach (ICD-10-PCS; principal; 2021-01-12)
DX: D64.89 Other specified anemias (principal); E03.9 Hypothyroidism, unspecified; M19.90 Unspecified osteoarthritis, unspecified site; Z90.09 Acquired absence of other part of head and neck; I25.10 Atherosclerotic heart disease of native coronary artery without angina pectoris; I11.9 Hypertensive heart disease without heart failure; Z95.1 Presence of aortocoronary bypass graft; E78.5 Hyperlipidemia, unspecified; K55.20 Angiodysplasia of colon without hemorrhage; E66.9 Obesity, unspecified; K92.2 Gastrointestinal hemorrhage, unspecified; Z68.32 Body mass index [BMI] 32.0-32.9, adult; Z88.8 Allergy status to other drugs, medicaments and biological substances
CPT/HCPCS: 36415; 36430; 71045-TC-FY; 80053; 82962; 85025; 85610; 85730; 86850; 86900; 86901; 86922; 93005; 93010; 99285-25; C9803; G0378; P9058; U0003; U0005

== ENCOUNTER 2021-02-02 07:12 | Day surgery (SDC) | payer OTHER, MEDICARE ==
[2021-02-02 09:35] LABS: BASO % 0.4 % (0-2.0); EOS % 0.5 % (0-4.5); HEMATOCRIT 20.4 % (32.4-45.2); HEMOGLOBIN 7.2 GM/dL (10.7-15.3); LYMPH % 29.6 % (8-40); MCHC 35.5 g/dl (32.0-36.0); MEAN CELL VOLUME 92.9 fl (80-96); MEAN PLT VOLUME 7.7 fl (7.5-11.1); MONO % 8.8 % (3.8-10.2); NEUT % 60.7 % (42.8-82.8); PLATELET COUNT 165 10^3/uL (134-434); RBC 2.19 M/mm3 (3.60-5.2); RDW 24.3 % (11.6-15.6); WHITE BLOOD COUNT 4.8 K/mm3 (4.0-10.0)
[2021-02-02 13:56] LABS: ANISOCYTOSIS 1+; MACROCYTOSIS 0; PLATELET ESTIMATE DECREASED
[2021-02-02 15:08] VITALS: BP 114/57; PULSE 87; TEMP 98.1
== END 2021-02-02 13:15 | disposition home or self-care (01) ==
LOC: JONCBLOOD 07:12
PROVIDERS: ATTEND Internal Medicine Hematology & Oncology
PROC: 30233N1 Transfusion of Nonautologous Red Blood Cells into Peripheral Vein, Percutaneous Approach (ICD-10-PCS; principal; 2021-02-02)
DX: C90.00 Multiple myeloma not having achieved remission (principal); D50.0 Iron deficiency anemia secondary to blood loss (chronic)
CPT/HCPCS: 36415; 36430; 85025; 86850; 86900; 86901; 86922; 96372; P9058

== ENCOUNTER 2021-02-19 07:15 | Day surgery (SDC) | payer OTHER, MEDICARE ==
[2021-02-19] MEDS ORDERED: FUROSEMIDE 20 MG TABLET (FP) PO ONE (09:15)
[2021-02-19 09:20] LABS: EOS % 1.4 % (0-4.5); HEMATOCRIT 19.3 % (32.4-45.2); LYMPH % 51.9 % (8-40); MCH 33.9 pg (25.7-33.7); MCHC 34.9 g/dl (32.0-36.0); MEAN CELL VOLUME 96.9 fl (80-96); MEAN PLT VOLUME 7.5 fl (7.5-11.1); MONO % 11.2 % (3.8-10.2); NEUT % 34.5 % (42.8-82.8); PLATELET COUNT 141 10^3/uL (134-434); RBC 1.99 M/mm3 (3.60-5.2); RDW 27.6 % (11.6-15.6)
[2021-02-19 09:30] LABS: HEMOGLOBIN 6.7 GM/dL (10.7-15.3)
[2021-02-19 09:41] LABS: ALBUMIN 2.9 g/dl (3.4-5.0); BLOOD UREA NITROGEN 25.6 mg/dL (7-18); CALCIUM 8.3 mg/dL (8.5-10.1); MAGNESIUM 2.3 mg/dL (1.8-2.4)
[2021-02-19 09:44] LABS: CREATININE 1.2 mg/dL (0.55-1.3)
[2021-02-19 09:45] LABS: BILIRUBIN,TOTAL 0.2 mg/dL (0.2-1); TOT PROT 5.7 g/dl (6.4-8.2)
[2021-02-19] MEDS ORDERED: TBO-FILGRASTIM 480 MCG/0.8 ML DISP.SYRIN SQ ONE (10:01)
[2021-02-19] MEDS ORDERED: POTASSIUM CHLORIDE TABS 20 MEQ TABLET.ER (FP) PO ONE (10:01)
[2021-02-19 10:03] LABS: ANISOCYTOSIS 1+; MACROCYTOSIS 1+; OVALOCYTE 1+; PLATELET ESTIMATE DECREASED
[2021-02-19 18:38] LABS: BASO % 0.7 % (0-2.0); EOS % 0.8 % (0-4.5); HEMATOCRIT 26.2 % (32.4-45.2); HEMOGLOBIN 9.1 GM/dL (10.7-15.3); LYMPH % 30.6 % (8-40); MCH 31.8 pg (25.7-33.7); MCHC 34.6 g/dl (32.0-36.0); MEAN CELL VOLUME 91.8 fl (80-96); MEAN PLT VOLUME 7.5 fl (7.5-11.1); MONO % 7.9 % (3.8-10.2); PLATELET COUNT 148 10^3/uL (134-434); RBC 2.86 M/mm3 (3.60-5.2); RDW 24.8 % (11.6-15.6); WHITE BLOOD COUNT 3.8 K/mm3 (4.0-10.0)
[2021-02-20 07:57] VITALS: BP 109/42; PULSE 59; TEMP 98.4
== END 2021-02-19 18:20 | disposition home or self-care (01) ==
LOC: JONCBLOOD 07:15
PROVIDERS: ATTEND Internal Medicine Hematology & Oncology
PROC: 30233N1 Transfusion of Nonautologous Red Blood Cells into Peripheral Vein, Percutaneous Approach (ICD-10-PCS; principal; 2021-02-19)
DX: C90.00 Multiple myeloma not having achieved remission (principal)
CPT/HCPCS: 36415; 36430; 80053; 83735; 85025; 86850; 86900; 86901; 86922; 96401; J1447; P9058

== ENCOUNTER 2021-03-05 06:49 | Day surgery (SDC) | payer OTHER, MEDICARE ==
[2021-03-05 09:32] LABS: BASO % 1.7 % (0-2.0); EOS % 1.3 % (0-4.5); HEMOGLOBIN 7.3 GM/dL (10.7-15.3); LYMPH % 40.1 % (8-40); MCH 32.4 pg (25.7-33.7); MCHC 34.8 g/dl (32.0-36.0); MEAN PLT VOLUME 7.8 fl (7.5-11.1); MONO % 7.6 % (3.8-10.2); NEUT % 49.3 % (42.8-82.8); PLATELET COUNT 186 10^3/uL (134-434); RBC 2.25 M/mm3 (3.60-5.2); RDW 25.9 % (11.6-15.6); WHITE BLOOD COUNT 2.9 K/mm3 (4.0-10.0)
[2021-03-05 09:40] VITALS: PULSE 60; TEMP 98.2
[2021-03-05 09:56] LABS: ALBUMIN 2.7 g/dl (3.4-5.0); CALCIUM 7.9 mg/dL (8.5-10.1)
[2021-03-05 09:57] LABS: BLOOD UREA NITROGEN 34.5 mg/dL (7-18); MAGNESIUM 2.3 mg/dL (1.8-2.4)
[2021-03-05 09:59] LABS: CREATININE 1.3 mg/dL (0.55-1.3)
[2021-03-05] MEDS ORDERED: FUROSEMIDE 40 MG/4 ML INJECTABLE VIAL IVPUSH ONE (10:00)
[2021-03-05 10:01] LABS: BILIRUBIN,TOTAL 0.4 mg/dL (0.2-1); TOT PROT 5.8 g/dl (6.4-8.2)
[2021-03-05 14:26] LABS: ANISOCYTOSIS 2+; MACROCYTOSIS 0; OVALOCYTE 1+; PLATELET ESTIMATE NORMAL; TEAR DROP CELLS 1+
[2021-03-05 18:36] VITALS: BP 104/42
[2021-03-05] MEDS ORDERED: PORTA CATH FLUSH 10 ML IVPUSH ONE (18:36)
[2021-03-05 18:59] LABS: BASO % 1.9 % (0-2.0); EOS % 1.2 % (0-4.5); HEMATOCRIT 25.8 % (32.4-45.2); LYMPH % 38.3 % (8-40); MCH 31.4 pg (25.7-33.7); MCHC 34.9 g/dl (32.0-36.0); MEAN CELL VOLUME 89.9 fl (80-96); MEAN PLT VOLUME 7.8 fl (7.5-11.1); MONO % 9.3 % (3.8-10.2); NEUT % 49.3 % (42.8-82.8); PLATELET COUNT 182 10^3/uL (134-434); RBC 2.87 M/mm3 (3.60-5.2); RDW 22.7 % (11.6-15.6); WHITE BLOOD COUNT 3.3 K/mm3 (4.0-10.0)
== END 2021-03-05 18:15 | disposition home or self-care (01) ==
LOC: JONCBLOOD 06:49
PROVIDERS: ATTEND Internal Medicine Hematology & Oncology
PROC: 30233N1 Transfusion of Nonautologous Red Blood Cells into Peripheral Vein, Percutaneous Approach (ICD-10-PCS; principal; 2021-03-05)
DX: C90.00 Multiple myeloma not having achieved remission (principal)
CPT/HCPCS: 36415; 36430; 80053; 83735; 85025; 86850; 86900; 86901; 86922; P9058

== ENCOUNTER 2021-03-23 07:40 | Day surgery (SDC) | payer OTHER, MEDICARE ==
[2021-03-23 08:53] LABS: BASO % 0.8 % (0-2.0); EOS % 0.5 % (0-4.5); HEMATOCRIT 19.7 % (32.4-45.2); LYMPH % 41.2 % (8-40); MCH 31.4 pg (25.7-33.7); MCHC 35.1 g/dl (32.0-36.0); MEAN CELL VOLUME 89.5 fl (80-96); MEAN PLT VOLUME 7.6 fl (7.5-11.1); MONO % 8.6 % (3.8-10.2); NEUT % 48.9 % (42.8-82.8); PLATELET COUNT 178 10^3/uL (134-434); RDW 23.5 % (11.6-15.6); WHITE BLOOD COUNT 4.2 K/mm3 (4.0-10.0)
[2021-03-23 09:02] LABS: HEMOGLOBIN 6.9 GM/dL (10.7-15.3)
[2021-03-23] MEDS ORDERED: FUROSEMIDE 40 MG/4 ML INJECTABLE VIAL IVPUSH ONE (14:15)
[2021-03-23] MEDS ORDERED: PORTA CATH FLUSH 10 ML IVPUSH ONE ×2 (14:47→18:27)
[2021-03-23 17:44] VITALS: BP 94/41; PULSE 55; TEMP 97.5
[2021-03-23 19:08] LABS: BASO % 0.9 % (0-2.0); EOS % 0.6 % (0-4.5); HEMATOCRIT 25.7 % (32.4-45.2); LYMPH % 39.9 % (8-40); MCH 30.3 pg (25.7-33.7); MCHC 34.9 g/dl (32.0-36.0); MEAN CELL VOLUME 86.9 fl (80-96); MEAN PLT VOLUME 7.5 fl (7.5-11.1); MONO % 9.8 % (3.8-10.2); NEUT % 48.8 % (42.8-82.8); PLATELET COUNT 169 10^3/uL (134-434); RBC 2.96 M/mm3 (3.60-5.2); RDW 18.5 % (11.6-15.6); WHITE BLOOD COUNT 4.1 K/mm3 (4.0-10.0)
== END 2021-03-23 19:25 | disposition home or self-care (01) ==
LOC: JONCBLOOD 07:40
PROVIDERS: ATTEND Internal Medicine Hematology & Oncology
PROC: 30233N1 Transfusion of Nonautologous Red Blood Cells into Peripheral Vein, Percutaneous Approach (ICD-10-PCS; principal; 2021-03-23)
DX: C90.00 Multiple myeloma not having achieved remission (principal)
CPT/HCPCS: 36415; 36430; 85025; 86850; 86900; 86901; 86922; P9058

== ENCOUNTER 2021-04-10 07:38 | Day surgery (SDC) | payer OTHER, MEDICARE ==
[2021-04-10 08:59] LABS: BASO % 0.2 % (0-2.0); EOS % 0.1 % (0-4.5); HEMATOCRIT 18.4 % (32.4-45.2); LYMPH % 27.7 % (8-40); MCH 31.4 pg (25.7-33.7); MEAN CELL VOLUME 87.3 fl (80-96); MEAN PLT VOLUME 8.1 fl (7.5-11.1); MONO % 3.6 % (3.8-10.2); NEUT % 68.4 % (42.8-82.8); PLATELET COUNT 223 10^3/uL (134-434); RBC 2.11 M/mm3 (3.60-5.2); WHITE BLOOD COUNT 4.8 K/mm3 (4.0-10.0)
[2021-04-10 09:07] LABS: HEMOGLOBIN 6.6 GM/dL (10.7-15.3)
[2021-04-10] MEDS ORDERED: FUROSEMIDE 40 MG/4 ML INJECTABLE VIAL IVPUSH ONE ×3 (10:00→14:29)
[2021-04-10] MEDS ORDERED: POTASSIUM CHLORIDE TABS 20 MEQ TABLET.ER (FP) PO ONE ×2 (10:00→13:30)
[2021-04-10 18:46] VITALS: BP 135/55; PULSE 64; TEMP 97.7
[2021-04-10 19:06] LABS: HEMATOCRIT 24.1 % (32.4-45.2); HEMOGLOBIN 8.5 GM/dL (10.7-15.3); MCH 30.3 pg (25.7-33.7); MCHC 35.4 g/dl (32.0-36.0); MEAN CELL VOLUME 85.6 fl (80-96); MEAN PLT VOLUME 7.6 fl (7.5-11.1); PLATELET COUNT 198 10^3/uL (134-434); RBC 2.82 M/mm3 (3.60-5.2)
== END 2021-04-10 18:45 | disposition home or self-care (01) ==
LOC: JONCBLOOD 07:38
PROVIDERS: ATTEND Internal Medicine Hematology & Oncology
PROC: 30233N1 Transfusion of Nonautologous Red Blood Cells into Peripheral Vein, Percutaneous Approach (ICD-10-PCS; principal; 2021-04-10)
DX: C90.00 Multiple myeloma not having achieved remission (principal)
CPT/HCPCS: 36415; 36430; 85025; 85027; 86850; 86900; 86901; 86922; P9058

== ENCOUNTER 2021-04-24 07:51 | Day surgery (SDC) | payer OTHER, MEDICARE ==
[2021-04-24 09:08] LABS: BASO % 0.4 % (0-2.0); EOS % 0.1 % (0-4.5); HEMATOCRIT 20.5 % (32.4-45.2); HEMOGLOBIN 7.2 GM/dL (10.7-15.3); LYMPH % 43.1 % (8-40); MCH 30.2 pg (25.7-33.7); MCHC 35.2 g/dl (32.0-36.0); MEAN CELL VOLUME 85.9 fl (80-96); MEAN PLT VOLUME 7.9 fl (7.5-11.1); MONO % 11.4 % (3.8-10.2); PLATELET COUNT 119 10^3/uL (134-434); RBC 2.39 M/mm3 (3.60-5.2); RDW 16.1 % (11.6-15.6); WHITE BLOOD COUNT 3.8 K/mm3 (4.0-10.0)
[2021-04-24 09:29] LABS: ALBUMIN 2.9 g/dl (3.4-5.0); CALCIUM 7.7 mg/dL (8.5-10.1)
[2021-04-24 09:30] LABS: BLOOD UREA NITROGEN 29.5 mg/dL (7-18)
[2021-04-24 09:32] LABS: PHOSPHOROUS 5.3 mg/dL (2.5-4.9)
[2021-04-24 09:33] LABS: CREATININE 1.4 mg/dL (0.55-1.3)
[2021-04-24 09:34] LABS: BILIRUBIN,TOTAL 0.4 mg/dL (0.2-1); TOT PROT 6.4 g/dl (6.4-8.2)
[2021-04-24 09:45] LABS: MAGNESIUM 2.4 mg/dL (1.8-2.4)
[2021-04-24] MEDS ORDERED: FUROSEMIDE 40 MG/4 ML INJECTABLE VIAL IVPUSH ONE ×2 (13:00→15:30)
[2021-04-24 19:21] VITALS: PULSE 67
[2021-04-24 19:22] VITALS: BP 128/55; TEMP 98
[2021-04-24 19:28] LABS: HEMATOCRIT 24.7 % (32.4-45.2); HEMOGLOBIN 8.6 GM/dL (10.7-15.3); MCH 29.5 pg (25.7-33.7); MCHC 34.7 g/dl (32.0-36.0); MEAN CELL VOLUME 84.8 fl (80-96); MEAN PLT VOLUME 7.8 fl (7.5-11.1); PLATELET COUNT 106 10^3/uL (134-434); RBC 2.91 M/mm3 (3.60-5.2); RDW 14.8 % (11.6-15.6); WHITE BLOOD COUNT 2.9 K/mm3 (4.0-10.0)
== END 2021-04-24 19:10 | disposition home or self-care (01) ==
LOC: JONCBLOOD 07:51
PROVIDERS: ATTEND Internal Medicine Hematology & Oncology
PROC: 30233N1 Transfusion of Nonautologous Red Blood Cells into Peripheral Vein, Percutaneous Approach (ICD-10-PCS; principal; 2021-04-24)
DX: C90.00 Multiple myeloma not having achieved remission (principal)
CPT/HCPCS: 36415; 36430; 80053; 83735; 84100; 85025; 85027; 85730; 86850; 86900; 86901; 86922; P9058

== ENCOUNTER 2021-05-11 07:27 | Day surgery (SDC) | payer OTHER, MEDICARE ==
[2021-05-11 09:11] LABS: BASO % 0.3 % (0-2.0); EOS % 0.1 % (0-4.5); HEMATOCRIT 15.7 % (32.4-45.2); LYMPH % 32.5 % (8-40); MCH 30.1 pg (25.7-33.7); MCHC 35.7 g/dl (32.0-36.0); MEAN CELL VOLUME 84.3 fl (80-96); MEAN PLT VOLUME 7.9 fl (7.5-11.1); MONO % 8.1 % (3.8-10.2); PLATELET COUNT 128 10^3/uL (134-434); RBC 1.86 M/mm3 (3.60-5.2); RDW 14.9 % (11.6-15.6); WHITE BLOOD COUNT 3.7 K/mm3 (4.0-10.0)
[2021-05-11 09:29] LABS: CALCIUM 7.9 mg/dL (8.5-10.1)
[2021-05-11 09:30] LABS: ALBUMIN 2.8 g/dl (3.4-5.0); BLOOD UREA NITROGEN 29.7 mg/dL (7-18); MAGNESIUM 2.4 mg/dL (1.8-2.4)
[2021-05-11 09:32] LABS: CREATININE 1.3 mg/dL (0.55-1.3)
[2021-05-11 09:33] LABS: TOT PROT 5.8 g/dl (6.4-8.2)
[2021-05-11 09:34] LABS: BILIRUBIN,TOTAL 0.4 mg/dL (0.2-1); HEMOGLOBIN 5.6 GM/dL (10.7-15.3)
[2021-05-11 11:46] LABS: URINE APPEARANCE CLEAR; URINE BILIRUBIN NEGATIVE (NEGATIVE); URINE COLOR YELLOW; URINE GLUCOSE (UA) NEGATIVE (NEGATIVE); URINE KETONE NEGATIVE (NEGATIVE); URINE LEUK ESTERASE NEGATIVE (NEGATIVE); URINE NITRITE NEGATIVE (NEGATIVE); URINE PROTEIN NEGATIVE (NEGATIVE); URINE UROBILINOGEN 0.2 mg/dL (0.2-1.0)
[2021-05-11] MEDS ORDERED: FUROSEMIDE 40 MG TABLET (FP) PO SCH (12:30)
[2021-05-11 17:55] VITALS: PULSE 67
[2021-05-11 18:02] VITALS: BP 96/46; TEMP 97.8
== END 2021-05-11 18:04 | disposition home or self-care (01) ==
LOC: JONCBLOOD 07:27
PROVIDERS: ATTEND Internal Medicine Hematology & Oncology
PROC: 30233N1 Transfusion of Nonautologous Red Blood Cells into Peripheral Vein, Percutaneous Approach (ICD-10-PCS; principal; 2021-05-11)
DX: K55.20 Angiodysplasia of colon without hemorrhage (principal); D63.8 Anemia in other chronic diseases classified elsewhere
CPT/HCPCS: 36415; 36430; 80053; 81003; 82728; 83540; 83550; 83735; 84156; 85025; 86850; 86900; 86901; 86922; P9058

== ENCOUNTER 2021-05-14 07:47 | Day surgery (SDC) | payer OTHER, MEDICARE ==
[2021-05-14] MEDS ORDERED: BEVACIZUMAB AWWB IVPB ONE (11:00)
[2021-05-14] MEDS ORDERED: SODIUM CHLORIDE IVPB ONE (11:00)
[2021-05-14 16:51] LABS: BASO % 0.6 % (0-2.0); EOS % 0.1 % (0-4.5); HEMATOCRIT 21.9 % (32.4-45.2); HEMOGLOBIN 7.6 GM/dL (10.7-15.3); LYMPH % 34.7 % (8-40); MCH 29.1 pg (25.7-33.7); MCHC 34.6 g/dl (32.0-36.0); MEAN CELL VOLUME 84.1 fl (80-96); MEAN PLT VOLUME 8.1 fl (7.5-11.1); MONO % 9.1 % (3.8-10.2); NEUT % 55.5 % (42.8-82.8); PLATELET COUNT 141 10^3/uL (134-434); RDW 15.7 % (11.6-15.6); WHITE BLOOD COUNT 4.2 K/mm3 (4.0-10.0)
[2021-05-14 17:04] VITALS: TEMP 98.2
[2021-05-14 17:05] VITALS: BP 120/49; PULSE 71
[2021-05-14 17:10] LABS: CALCIUM 8.3 mg/dL (8.5-10.1)
[2021-05-14 17:12] LABS: ALBUMIN 2.8 g/dl (3.4-5.0); BLOOD UREA NITROGEN 25.9 mg/dL (7-18)
[2021-05-14 17:14] LABS: CREATININE 1.3 mg/dL (0.55-1.3)
[2021-05-14 17:15] LABS: BILIRUBIN,TOTAL 0.4 mg/dL (0.2-1)
[2021-05-14 17:17] LABS: TOT PROT 6.1 g/dl (6.4-8.2)
== END 2021-05-14 14:00 | disposition home or self-care (01) ==
LOC: JONCCHEMO 07:47
PROVIDERS: ATTEND Internal Medicine Hematology & Oncology
DX: Z51.11 Encounter for antineoplastic chemotherapy (principal); C90.00 Multiple myeloma not having achieved remission
CPT/HCPCS: 36415; 80053; 85025; 96413; Q5107

== ENCOUNTER 2021-05-21 07:39 | Day surgery (SDC) | payer OTHER, MEDICARE ==
[2021-05-21 08:52] LABS: BASO % 0.3 % (0-2.0); EOS % 0.1 % (0-4.5); HEMATOCRIT 18.9 % (32.4-45.2); LYMPH % 31.6 % (8-40); MCH 28.9 pg (25.7-33.7); MCHC 34.7 g/dl (32.0-36.0); MEAN CELL VOLUME 83.3 fl (80-96); MONO % 5.4 % (3.8-10.2); NEUT % 62.6 % (42.8-82.8); PLATELET COUNT 154 10^3/uL (134-434); RBC 2.27 M/mm3 (3.60-5.2); RDW 15.3 % (11.6-15.6); WHITE BLOOD COUNT 4.2 K/mm3 (4.0-10.0)
[2021-05-21 09:17] LABS: HEMOGLOBIN 6.6 GM/dL (10.7-15.3)
[2021-05-21] MEDS ORDERED: FUROSEMIDE 40 MG/4 ML INJECTABLE VIAL IVPUSH ONE (14:44)
[2021-05-21 18:35] VITALS: BP 100/55; PULSE 68; TEMP 98
[2021-05-21 18:44] LABS: HEMATOCRIT 25.6 % (32.4-45.2); HEMOGLOBIN 8.8 GM/dL (10.7-15.3); MCH 28.7 pg (25.7-33.7); MCHC 34.5 g/dl (32.0-36.0); MEAN CELL VOLUME 83.1 fl (80-96); MEAN PLT VOLUME 7.6 fl (7.5-11.1); PLATELET COUNT 152 10^3/uL (134-434); RBC 3.08 M/mm3 (3.60-5.2); RDW 15.2 % (11.6-15.6); WHITE BLOOD COUNT 4.2 K/mm3 (4.0-10.0)
== END 2021-05-21 18:25 | disposition home or self-care (01) ==
LOC: JONCNONCHE 07:39 → JONCBLOOD 07:39 → JONCNONCHE 18:25
PROVIDERS: ATTEND Internal Medicine Hematology & Oncology
PROC: 30233H1 Transfusion of Nonautologous Whole Blood into Peripheral Vein, Percutaneous Approach (ICD-10-PCS; principal; 2021-05-21)
DX: K55.20 Angiodysplasia of colon without hemorrhage (principal); D50.0 Iron deficiency anemia secondary to blood loss (chronic)
CPT/HCPCS: 36415; 36430; 36511; 85025; 85027; 86850; 86900; 86901; 86922; P9038; P9058

== ENCOUNTER 2021-05-28 08:00 | Day surgery (SDC) | payer OTHER, MEDICARE ==
[2021-05-28 10:25] LABS: BASO % 0.2 % (0-2.0); EOS % 0.1 % (0-4.5); HEMATOCRIT 23.4 % (32.4-45.2); HEMOGLOBIN 8.2 GM/dL (10.7-15.3); LYMPH % 32.6 % (8-40); MCH 28.9 pg (25.7-33.7); MCHC 34.9 g/dl (32.0-36.0); MEAN CELL VOLUME 82.8 fl (80-96); MEAN PLT VOLUME 7.7 fl (7.5-11.1); MONO % 6.6 % (3.8-10.2); NEUT % 60.5 % (42.8-82.8); PLATELET COUNT 154 10^3/uL (134-434); RBC 2.83 M/mm3 (3.60-5.2); WHITE BLOOD COUNT 5.3 K/mm3 (4.0-10.0)
[2021-05-28] MEDS ORDERED: BEVACIZUMAB AWWB IVPB ONE (11:00)
[2021-05-28] MEDS ORDERED: SODIUM CHLORIDE IVPB ONE (11:00)
[2021-05-28 11:21] LABS: BILIRUBIN,DIRECT 0.1 mg/dL (0.0-0.2); BILIRUBIN,TOTAL 0.4 mg/dL (0.2-1); CREATININE 1.4 mg/dL (0.55-1.3); MAGNESIUM 2.6 mg/dL (1.8-2.4); TOT PROT 6.5 g/dl (6.4-8.2)
[2021-05-28 15:21] VITALS: TEMP 98.8
[2021-05-28 15:26] VITALS: BP 103/47; PULSE 77
== END 2021-05-28 15:20 | disposition home or self-care (01) ==
LOC: JONCCHEMO 08:00
PROVIDERS: ATTEND Internal Medicine Hematology & Oncology
DX: Z51.11 Encounter for antineoplastic chemotherapy (principal); C90.00 Multiple myeloma not having achieved remission
CPT/HCPCS: 36415; 80048; 80076; 83735; 84156; 85025; 96413; Q5107

== ENCOUNTER 2021-05-31 07:42 | Day surgery (SDC) | payer OTHER, MEDICARE ==
[2021-05-31 09:14] LABS: BASO % 0.1 % (0-2.0); EOS % 0.1 % (0-4.5); HEMATOCRIT 21.5 % (32.4-45.2); HEMOGLOBIN 7.4 GM/dL (10.7-15.3); LYMPH % 29.8 % (8-40); MCH 28.5 pg (25.7-33.7); MCHC 34.4 g/dl (32.0-36.0); MEAN CELL VOLUME 82.8 fl (80-96); MEAN PLT VOLUME 7.7 fl (7.5-11.1); MONO % 6.6 % (3.8-10.2); NEUT % 63.4 % (42.8-82.8); PLATELET COUNT 138 10^3/uL (134-434); RDW 14.7 % (11.6-15.6); WHITE BLOOD COUNT 4.5 K/mm3 (4.0-10.0)
[2021-05-31] MEDS ORDERED: FUROSEMIDE 40 MG TABLET (FP) PO SCH (09:45)
[2021-05-31 15:06] LABS: BASO % 0.2 % (0-2.0); EOS % 0.1 % (0-4.5); HEMOGLOBIN 8.7 GM/dL (10.7-15.3); LYMPH % 29.2 % (8-40); MCH 29.4 pg (25.7-33.7); MCHC 34.8 g/dl (32.0-36.0); MEAN CELL VOLUME 84.7 fl (80-96); MEAN PLT VOLUME 7.9 fl (7.5-11.1); MONO % 6.9 % (3.8-10.2); NEUT % 63.6 % (42.8-82.8); PLATELET COUNT 139 10^3/uL (134-434); RBC 2.96 M/mm3 (3.60-5.2); RDW 14.9 % (11.6-15.6); WHITE BLOOD COUNT 4.6 K/mm3 (4.0-10.0)
[2021-05-31 15:34] VITALS: TEMP 98.1
[2021-05-31 15:36] VITALS: BP 117/51; PULSE 75
== END 2021-05-31 15:10 | disposition home or self-care (01) ==
LOC: JONCBLOOD 07:42
PROVIDERS: ATTEND Internal Medicine Hematology & Oncology
PROC: 30233H1 Transfusion of Nonautologous Whole Blood into Peripheral Vein, Percutaneous Approach (ICD-10-PCS; principal; 2021-05-31)
DX: K55.20 Angiodysplasia of colon without hemorrhage (principal); D50.0 Iron deficiency anemia secondary to blood loss (chronic); C90.00 Multiple myeloma not having achieved remission
CPT/HCPCS: 36415; 36430; 85025; 86850; 86900; 86901; 86922; P9058

== ENCOUNTER 2021-06-08 07:52 | Day surgery (SDC) | payer OTHER, MEDICARE ==
[2021-06-08] MEDS ORDERED: SODIUM CHLORIDE IVPB ONE (10:00)
[2021-06-08] MEDS ORDERED: BEVACIZUMAB AWWB IVPB ONE (10:00)
[2021-06-08 11:00] VITALS: TEMP 98.1
[2021-06-08 11:13] VITALS: BP 129/57; PULSE 75
== END 2021-06-08 10:15 | disposition home or self-care (01) ==
LOC: JONCCHEMO 07:52
PROVIDERS: ATTEND Internal Medicine Hematology & Oncology
DX: Z51.11 Encounter for antineoplastic chemotherapy (principal); C90.00 Multiple myeloma not having achieved remission; K55.20 Angiodysplasia of colon without hemorrhage
CPT/HCPCS: 96365; Q5107

== ENCOUNTER 2021-06-13 12:30 | Observation (INO) | payer OTHER, MEDICARE ==
[2021-06-13 17:37] LABS: BASO % 0.2 % (0-2.0); EOS % 0.1 % (0-4.5); HEMATOCRIT 22.5 % (32.4-45.2); HEMOGLOBIN 7.6 GM/dL (10.7-15.3); LYMPH % 32.7 % (8-40); MCH 28.3 pg (25.7-33.7); MCHC 33.9 g/dl (32.0-36.0); MEAN CELL VOLUME 83.4 fl (80-96); MONO % 6.9 % (3.8-10.2); NEUT % 60.1 % (42.8-82.8); RBC 2.69 M/mm3 (3.60-5.2); RDW 14.5 % (11.6-15.6); WHITE BLOOD COUNT 8.3 K/mm3 (4.0-10.0)
[2021-06-13 18:17] LABS: PLATELET ESTIMATE DECREASED
[2021-06-13 18:23] LABS: MEAN PLT VOLUME 8.6 fl (7.5-11.1); PLATELET COUNT 134 10^3/uL (134-434)
[2021-06-13 19:36] LABS: ALK PHOS 201 U/L (45-117); ANION GAP 11 MMOL/L (8-16); BILIRUBIN,TOTAL 0.4 mg/dL (0.2-1); CALCIUM 10.1 mg/dL (8.5-10.1); CHLORIDE 102 mmol/L (98-107); CO2 27 mmol/L (21-32); CREATININE 1.6 mg/dL (0.55-1.3); GLUCOSE,RANDOM 110 mg/dL (74-106); MAGNESIUM 2.6 mg/dL (1.8-2.4); SGOT/AST 116 U/L (15-37); SGPT/ALT 136 U/L (13-61); SODIUM 139 mmol/L (136-145); TOT PROT 7.4 g/dl (6.4-8.2)
[2021-06-13] MEDS ORDERED: PRAMIPEXOLE DIHYDROCHLORIDE 1.5 MG TABLET PO SCH (22:00)
[2021-06-14] MEDS: ALLOPURINOL 100 MG TABLET (FP) PO SCH ×2 (05:34→11:22)
[2021-06-14] MEDS: CALCIUM 500MG/VIT-D 200 UNITS COMBO TABLET (FP) PO SCH ×2 (05:34→05:54)
[2021-06-14 05:49] VITALS: BMI 28.5
[2021-06-14] MEDS ORDERED: LEVOTHYROXINE NA 150 MCG TABLET PO SCH (07:00)
[2021-06-14 08:12] VITALS: BP 124/71; PULSE 80; TEMP 97.6
[2021-06-14 09:36] LABS: BASO % 0.2 % (0-2.0); EOS % 0.1 % (0-4.5); HEMATOCRIT 23.4 % (32.4-45.2); HEMOGLOBIN 8.1 GM/dL (10.7-15.3); LYMPH % 29.7 % (8-40); MCH 28.8 pg (25.7-33.7); MCHC 34.6 g/dl (32.0-36.0); MEAN CELL VOLUME 83.2 fl (80-96); MEAN PLT VOLUME 7.7 fl (7.5-11.1); PLATELET COUNT 129 10^3/uL (134-434); RBC 2.81 M/mm3 (3.60-5.2); RDW 14.3 % (11.6-15.6); WHITE BLOOD COUNT 4.5 K/mm3 (4.0-10.0)
[2021-06-14] MEDS ORDERED: FOLIC ACID 1 MG TABLET (FP) PO SCH (10:00)
[2021-06-14] MEDS ORDERED: FAMOTIDINE 20 MG TABLET PO SCH (10:00)
[2021-06-14] MEDS ORDERED: TORSEMIDE 100 MG TABLET PO SCH (10:00)
[2021-06-14 10:03] LABS: CALCIUM 9.3 mg/dL (8.5-10.1)
[2021-06-14 10:05] LABS: BLOOD UREA NITROGEN 32.2 mg/dL (7-18); CREATININE 1.6 mg/dL (0.55-1.3)
[2021-06-14] MEDS ORDERED: PT OWN MED DRAWER 7, Y5N ONE ×2 (10:29→11:26)
[2021-06-14] MEDS ORDERED: POTASSIUM CHLORIDE TABS 20 MEQ TABLET.ER (FP) PO ONE (12:30)
== END 2021-06-14 14:38 | disposition home or self-care (01) ==
LOC: JER 12:30 → JERBED 15:11 → J8W 06-14 05:24
PROVIDERS: ADMIT Internal Medicine; ATTEND Family Medicine
PROC: 30233N1 Transfusion of Nonautologous Red Blood Cells into Peripheral Vein, Percutaneous Approach (ICD-10-PCS; principal; 2021-06-13)
DX: D64.9 Anemia, unspecified (principal); I10 Essential (primary) hypertension; E78.5 Hyperlipidemia, unspecified; I25.10 Atherosclerotic heart disease of native coronary artery without angina pectoris; K21.9 Gastro-esophageal reflux disease without esophagitis; K76.0 Fatty (change of) liver, not elsewhere classified; R16.2 Hepatomegaly with splenomegaly, not elsewhere classified; E03.9 Hypothyroidism, unspecified; K55.20 Angiodysplasia of colon without hemorrhage; E88.09 Other disorders of plasma-protein metabolism, not elsewhere classified; Z20.822 Contact with and (suspected) exposure to COVID-19; Z88.0 Allergy status to penicillin; Z88.6 Allergy status to analgesic agent; Z88.8 Allergy status to other drugs, medicaments and biological substances; Z91.041 Radiographic dye allergy status
CPT/HCPCS: 36415; 36430; 80048; 80053; 83735; 84484; 85025; 86850; 86900; 86901; 86922; 93005; 93010; 99285-25; C9803; G0378; P9058; U0003; U0005

== ENCOUNTER 2021-06-25 08:22 | Day surgery (SDC) | payer OTHER, MEDICARE ==
[2021-06-25] MEDS ORDERED: SODIUM CHLORIDE IVPB ONE (10:00)
[2021-06-25] MEDS ORDERED: BEVACIZUMAB AWWB IVPB ONE (10:00)
[2021-06-25 15:23] LABS: BASO % 0.1 % (0-2.0); HEMATOCRIT 20.1 % (32.4-45.2); LYMPH % 26.5 % (8-40); MCH 28.8 pg (25.7-33.7); MCHC 34.3 g/dl (32.0-36.0); MEAN PLT VOLUME 8.1 fl (7.5-11.1); MONO % 5.7 % (3.8-10.2); NEUT % 67.7 % (42.8-82.8); PLATELET COUNT 144 10^3/uL (134-434); RDW 14.4 % (11.6-15.6); WHITE BLOOD COUNT 6.1 K/mm3 (4.0-10.0)
[2021-06-25 15:38] LABS: HEMOGLOBIN 6.9 GM/dL (10.7-15.3)
[2021-06-25 15:41] LABS: ALBUMIN 2.9 g/dl (3.4-5.0); BLOOD UREA NITROGEN 30.2 mg/dL (7-18); CALCIUM 10.5 mg/dL (8.5-10.1); MAGNESIUM 2.5 mg/dL (1.8-2.4)
[2021-06-25 15:44] LABS: BILIRUBIN,DIRECT 0.2 mg/dL (0.0-0.2); CREATININE 1.5 mg/dL (0.55-1.3)
[2021-06-25 15:46] LABS: BILIRUBIN,TOTAL 0.4 mg/dL (0.2-1); TOT PROT 6.8 g/dl (6.4-8.2)
[2021-06-25 16:42] VITALS: TEMP 97.9
[2021-06-25 16:59] VITALS: BP 104/50; PULSE 98
== END 2021-06-25 17:05 | disposition home or self-care (01) ==
LOC: JONCCHEMO 08:22
PROVIDERS: ATTEND Internal Medicine Hematology & Oncology
DX: Z51.11 Encounter for antineoplastic chemotherapy (principal); C90.00 Multiple myeloma not having achieved remission; K55.20 Angiodysplasia of colon without hemorrhage; D50.0 Iron deficiency anemia secondary to blood loss (chronic)
CPT/HCPCS: 36415; 80048; 80076; 83735; 85025; 96413; Q5107

== ENCOUNTER 2021-06-26 07:44 | Day surgery (SDC) | payer OTHER, MEDICARE ==
[2021-06-26 09:42] LABS: BASO % 0.2 % (0-2.0); EOS % 0.1 % (0-4.5); HEMATOCRIT 17.5 % (32.4-45.2); LYMPH % 26.9 % (8-40); MCH 29.4 pg (25.7-33.7); MCHC 35.3 g/dl (32.0-36.0); MEAN CELL VOLUME 83.1 fl (80-96); MEAN PLT VOLUME 7.9 fl (7.5-11.1); MONO % 7.4 % (3.8-10.2); NEUT % 65.4 % (42.8-82.8); PLATELET COUNT 141 10^3/uL (134-434); RBC 2.11 M/mm3 (3.60-5.2); RDW 14.1 % (11.6-15.6); WHITE BLOOD COUNT 4.5 K/mm3 (4.0-10.0)
[2021-06-26] MEDS ORDERED: FUROSEMIDE 20 MG TABLET (FP) PO PRN (09:56)
[2021-06-26 10:09] LABS: HEMOGLOBIN 6.2 GM/dL (10.7-15.3)
[2021-06-26 17:05] VITALS: BP 120/54; PULSE 75; TEMP 98
== END 2021-06-26 16:20 | disposition home or self-care (01) ==
LOC: JONCBLOOD 07:44
PROVIDERS: ATTEND Internal Medicine Hematology & Oncology
PROC: 30233H1 Transfusion of Nonautologous Whole Blood into Peripheral Vein, Percutaneous Approach (ICD-10-PCS; principal; 2021-06-26)
DX: D64.9 Anemia, unspecified (principal); K55.21 Angiodysplasia of colon with hemorrhage; C90.00 Multiple myeloma not having achieved remission
CPT/HCPCS: 36415; 36430; 85025; 86850; 86900; 86901; 86922; P9058

== ENCOUNTER 2021-07-10 08:18 | Day surgery (SDC) | payer OTHER, MEDICARE ==
[2021-07-10] MEDS ORDERED: SODIUM CHLORIDE IVPB ONE (11:00)
[2021-07-10] MEDS ORDERED: BEVACIZUMAB AWWB IVPB ONE (11:00)
[2021-07-10 13:56] LABS: BASO % 0.3 % (0-2.0); EOS % 0.1 % (0-4.5); HEMOGLOBIN 7.7 GM/dL (10.7-15.3); LYMPH % 32.5 % (8-40); MCH 28.4 pg (25.7-33.7); MCHC 33.5 g/dl (32.0-36.0); MEAN CELL VOLUME 84.7 fl (80-96); MEAN PLT VOLUME 8.7 fl (7.5-11.1); MONO % 7.8 % (3.8-10.2); NEUT % 59.3 % (42.8-82.8); PLATELET COUNT 138 10^3/uL (134-434); RBC 2.71 M/mm3 (3.60-5.2); RDW 14.3 % (11.6-15.6)
[2021-07-10 14:17] LABS: CALCIUM 10.7 mg/dL (8.5-10.1)
[2021-07-10 14:18] LABS: BLOOD UREA NITROGEN 24.9 mg/dL (7-18); MAGNESIUM 1.6 mg/dL (1.8-2.4)
[2021-07-10 14:19] LABS: BILIRUBIN,DIRECT 0.1 mg/dL (0.0-0.2); URIC ACID 5.9 mg/dL (2.6-7.2)
[2021-07-10 14:21] LABS: BILIRUBIN,TOTAL 0.4 mg/dL (0.2-1); CREATININE 1.4 mg/dL (0.55-1.3); TOT PROT 6.6 g/dl (6.4-8.2)
[2021-07-10] MEDS ORDERED: MAGNESIUM 2GM/50ML STERILE WATER IVPB IVPB ONE (14:56)
[2021-07-10 17:55] VITALS: BP 141/58; PULSE 75; TEMP 97.8
[2021-07-12 17:07] LABS: FREE KAPPA,SERUM 310.9 mg/L (3.3-19.4)
[2021-07-13 17:06] LABS: FREE KAP CHN UR 10.84 mg/L (0.63-113.79); KAPPA LAMBDA RATIO URIN 4.61 (1.03-31.76)
== END 2021-07-10 16:30 | disposition home or self-care (01) ==
LOC: JONCCHEMO 08:18
PROVIDERS: ATTEND Internal Medicine Hematology & Oncology
DX: Z51.11 Encounter for antineoplastic chemotherapy (principal); C90.00 Multiple myeloma not having achieved remission; D64.9 Anemia, unspecified; K55.21 Angiodysplasia of colon with hemorrhage
CPT/HCPCS: 36415; 80048; 80076; 82728; 82784; 83540; 83550; 83615; 83735; 83883; 84155; 84156; 84165; 84550; 85025; 86335; 96367; 96413; Q5107

== ENCOUNTER → 2021-07-13 | Day surgery (SDC) | payer OTHER, MEDICARE ==
[~2021-07-13] MED LIST: PORTA CATH FLUSH 10 ML IVPUSH ONE
[2021-07-13 16:52] VITALS: BP 99/54; PULSE 84; TEMP 98.1
[2021-07-13 18:10] LABS: BASO % 0.2 % (0-2.0); EOS % 0.2 % (0-4.5); HEMOGLOBIN 8.6 GM/dL (10.7-15.3); LYMPH % 34.5 % (8-40); MCH 29.2 pg (25.7-33.7); MCHC 34.5 g/dl (32.0-36.0); MEAN CELL VOLUME 84.7 fl (80-96); MEAN PLT VOLUME 7.9 fl (7.5-11.1); MONO % 8.3 % (3.8-10.2); NEUT % 56.8 % (42.8-82.8); PLATELET COUNT 127 10^3/uL (134-434); RBC 2.95 M/mm3 (3.60-5.2); RDW 14.6 % (11.6-15.6); WHITE BLOOD COUNT 4.4 K/mm3 (4.0-10.0)
== END | disposition home or self-care (01) ==
LOC: JINFUSION 07:33
PROVIDERS: ATTEND Internal Medicine Hematology & Oncology
PROC: 30233H1 Transfusion of Nonautologous Whole Blood into Peripheral Vein, Percutaneous Approach (ICD-10-PCS; principal; 2021-07-13)
DX: D64.9 Anemia, unspecified (principal); K55.21 Angiodysplasia of colon with hemorrhage; C90.00 Multiple myeloma not having achieved remission
CPT/HCPCS: 36415; 36430; 85025; 86850; 86900; 86901; 86922; P9058

== ENCOUNTER 2021-07-24 08:06 | Day surgery (SDC) | payer OTHER, MEDICARE ==
[2021-07-24] MEDS ORDERED: SODIUM CHLORIDE IVPB ONE (11:00)
[2021-07-24] MEDS ORDERED: BEVACIZUMAB AWWB IVPB ONE (11:00)
[2021-07-24 17:12] VITALS: BP 106/35; PULSE 100; TEMP 98.3
== END 2021-07-24 17:10 | disposition home or self-care (01) ==
LOC: JONCCHEMO 08:06
PROVIDERS: ATTEND Internal Medicine Hematology & Oncology
DX: Z51.11 Encounter for antineoplastic chemotherapy (principal); C90.00 Multiple myeloma not having achieved remission; K55.21 Angiodysplasia of colon with hemorrhage; D64.9 Anemia, unspecified
CPT/HCPCS: 96413; Q5107

== ENCOUNTER → 2021-07-27 | Day surgery (SDC) | payer OTHER, MEDICARE ==
[~2021-07-27] MED LIST changes: +FUROSEMIDE 20 MG TABLET (FP) PO ONE
[2021-07-27 09:21] LABS: BASO % 0.3 % (0-2.0); EOS % 0.1 % (0-4.5); HEMATOCRIT 18.2 % (32.4-45.2); LYMPH % 24.1 % (8-40); MCH 29.5 pg (25.7-33.7); MCHC 35.3 g/dl (32.0-36.0); MEAN CELL VOLUME 83.6 fl (80-96); MEAN PLT VOLUME 7.8 fl (7.5-11.1); MONO % 9.1 % (3.8-10.2); NEUT % 66.4 % (42.8-82.8); PLATELET COUNT 134 10^3/uL (134-434); RBC 2.18 M/mm3 (3.60-5.2); RDW 14.7 % (11.6-15.6); WHITE BLOOD COUNT 3.5 K/mm3 (4.0-10.0)
[2021-07-27 09:32] LABS: HEMOGLOBIN 6.4 GM/dL (10.7-15.3)
[2021-07-27 17:39] VITALS: BP 115/54; PULSE 74; TEMP 97.9
[2021-07-27 19:53] LABS: HEMATOCRIT 27.7 % (32.4-45.2); HEMOGLOBIN 9.8 GM/dL (10.7-15.3); MCH 29.5 pg (25.7-33.7); MCHC 35.4 g/dl (32.0-36.0); MEAN CELL VOLUME 83.5 fl (80-96); MEAN PLT VOLUME 7.7 fl (7.5-11.1); PLATELET COUNT 142 10^3/uL (134-434); RBC 3.32 M/mm3 (3.60-5.2); RDW 13.8 % (11.6-15.6)
== END | disposition home or self-care (01) ==
LOC: JONCBLOOD 06:52
PROVIDERS: ATTEND Internal Medicine Hematology & Oncology
PROC: 30233H1 Transfusion of Nonautologous Whole Blood into Peripheral Vein, Percutaneous Approach (ICD-10-PCS; principal; 2021-07-27)
DX: C90.00 Multiple myeloma not having achieved remission (principal); D63.8 Anemia in other chronic diseases classified elsewhere; K55.21 Angiodysplasia of colon with hemorrhage; E11.9 Type 2 diabetes mellitus without complications; I10 Essential (primary) hypertension; Z79.4 Long term (current) use of insulin
CPT/HCPCS: 36415; 36430; 82962; 85025; 85027; 86850; 86900; 86901; 86922; P9058

== ENCOUNTER 2021-08-08 08:07 | Day surgery (SDC) | payer OTHER, MEDICARE ==
[~2021-08-08 08:07] MED LIST changes: +BEVACIZUMAB AWWB IVPB ONE; -FUROSEMIDE 20 MG TABLET (FP) PO ONE; -PORTA CATH FLUSH 10 ML IVPUSH ONE; +SODIUM CHLORIDE IVPB ONE
[2021-08-08 08:51] LABS: BASO % 0.3 % (0-2.0); EOS % 0.3 % (0-4.5); HEMATOCRIT 23.4 % (32.4-45.2); HEMOGLOBIN 7.9 GM/dL (10.7-15.3); LYMPH % 28.6 % (8-40); MCH 29.3 pg (25.7-33.7); MCHC 33.9 g/dl (32.0-36.0); MEAN CELL VOLUME 86.3 fl (80-96); MEAN PLT VOLUME 7.7 fl (7.5-11.1); NEUT % 61.8 % (42.8-82.8); PLATELET COUNT 137 10^3/uL (134-434); RBC 2.71 M/mm3 (3.60-5.2); RDW 14.4 % (11.6-15.6); WHITE BLOOD COUNT 4.5 K/mm3 (4.0-10.0)
[2021-08-08] MEDS ORDERED: FUROSEMIDE 40 MG TABLET (FP) PO ONE (09:00)
[2021-08-08] MEDS ORDERED: POTASSIUM CHLORIDE TABS 20 MEQ TABLET.ER (FP) PO ONE (09:45)
[2021-08-08 15:17] VITALS: BP 130/52; PULSE 81; TEMP 98
[2021-08-08] MEDS ORDERED: PORTA CATH FLUSH 10 ML IVPUSH ONE (15:17)
== END 2021-08-08 15:18 | disposition home or self-care (01) ==
LOC: JONCBLOOD 08:07
PROVIDERS: ATTEND Internal Medicine Hematology & Oncology
PROC: 30233H1 Transfusion of Nonautologous Whole Blood into Peripheral Vein, Percutaneous Approach (ICD-10-PCS; principal; 2021-08-08)
DX: D64.9 Anemia, unspecified (principal); D63.8 Anemia in other chronic diseases classified elsewhere; C90.00 Multiple myeloma not having achieved remission; I10 Essential (primary) hypertension; Z79.4 Long term (current) use of insulin
CPT/HCPCS: 36415; 36430; 36511; 85025; 86850; 86900; 86901; 86922; P9016; P9038

== ENCOUNTER 2021-08-17 07:20 | Day surgery (SDC) | payer OTHER, MEDICARE ==
[2021-08-17 09:06] LABS: BASO % 0.4 % (0-2.0); EOS % 0.4 % (0-4.5); HEMATOCRIT 21.1 % (32.4-45.2); HEMOGLOBIN 7.2 GM/dL (10.7-15.3); LYMPH % 23.6 % (8-40); MCHC 34.2 g/dl (32.0-36.0); MEAN CELL VOLUME 84.7 fl (80-96); MONO % 7.9 % (3.8-10.2); NEUT % 67.7 % (42.8-82.8); PLATELET COUNT 164 10^3/uL (134-434); RDW 14.7 % (11.6-15.6); WHITE BLOOD COUNT 4.7 K/mm3 (4.0-10.0)
[2021-08-17 09:16] LABS: CALCIUM 8.6 mg/dL (8.5-10.1)
[2021-08-17 09:17] LABS: ALBUMIN 2.7 g/dl (3.4-5.0)
[2021-08-17 09:19] LABS: CREATININE 1.1 mg/dL (0.55-1.3)
[2021-08-17 09:22] LABS: BILIRUBIN,TOTAL 0.2 mg/dL (0.2-1)
[2021-08-17] MEDS ORDERED: FUROSEMIDE 40 MG TABLET (FP) PO ONE (12:00)
[2021-08-17] MEDS ORDERED: POTASSIUM CHLORIDE TABS 20 MEQ TABLET.ER (FP) PO ONE (12:00)
[2021-08-17] MEDS ORDERED: PORTA CATH FLUSH 10 ML IVPUSH ONE ×2 (16:26→17:16)
[2021-08-17 17:16] VITALS: BP 121/48; PULSE 73; TEMP 97.9
[2021-08-17 18:33] LABS: BASO % 0.2 % (0-2.0); EOS % 0.6 % (0-4.5); HEMATOCRIT 26.8 % (32.4-45.2); HEMOGLOBIN 9.4 GM/dL (10.7-15.3); LYMPH % 26.6 % (8-40); MCH 29.7 pg (25.7-33.7); MEAN PLT VOLUME 7.3 fl (7.5-11.1); MONO % 8.3 % (3.8-10.2); NEUT % 64.3 % (42.8-82.8); PLATELET COUNT 156 10^3/uL (134-434); RBC 3.15 M/mm3 (3.60-5.2); RDW 14.3 % (11.6-15.6); WHITE BLOOD COUNT 4.6 K/mm3 (4.0-10.0)
== END 2021-08-17 18:29 | disposition home or self-care (01) ==
LOC: JONCBLOOD 07:20
PROVIDERS: ATTEND Internal Medicine Hematology & Oncology
PROC: 30233H1 Transfusion of Nonautologous Whole Blood into Peripheral Vein, Percutaneous Approach (ICD-10-PCS; principal; 2021-08-17)
DX: K55.21 Angiodysplasia of colon with hemorrhage (principal); C90.00 Multiple myeloma not having achieved remission; E11.9 Type 2 diabetes mellitus without complications; I10 Essential (primary) hypertension; Z79.4 Long term (current) use of insulin
CPT/HCPCS: 36415; 36430; 80053; 85025; 86850; 86900; 86901; 86922; P9058

== ENCOUNTER 2021-08-22 07:12 | Day surgery (SDC) | payer OTHER, MEDICARE ==
[2021-08-22] MEDS ORDERED: OCTREOTIDE ACETATE 50 MCG/1 ML - 1 ML VIAL SQ ONE (09:45)
[2021-08-22 16:31] VITALS: BP 125/66; PULSE 70; TEMP 98.1
== END 2021-08-22 10:30 | disposition home or self-care (01) ==
LOC: JONCCHEMO 07:12
PROVIDERS: ATTEND Internal Medicine Hematology & Oncology
PROC: 3E013GC Introduction of Other Therapeutic Substance into Subcutaneous Tissue, Percutaneous Approach (ICD-10-PCS; principal; 2021-08-22)
DX: K55.21 Angiodysplasia of colon with hemorrhage (principal); C90.00 Multiple myeloma not having achieved remission; E11.9 Type 2 diabetes mellitus without complications; Z79.4 Long term (current) use of insulin
CPT/HCPCS: 82140; 96372

== ENCOUNTER 2021-08-23 07:56 | Day surgery (SDC) | payer OTHER, MEDICARE ==
[2021-08-23 09:28] VITALS: BP 133/59; PULSE 74; TEMP 97.9
[2021-08-23] MEDS ORDERED: OCTREOTIDE ACETATE 50 MCG/1 ML - 1 ML VIAL SQ ONE (10:00)
== END 2021-08-23 10:00 | disposition home or self-care (01) ==
LOC: JONCCHEMO 07:56
PROVIDERS: ATTEND Internal Medicine Hematology & Oncology
PROC: 3E013GC Introduction of Other Therapeutic Substance into Subcutaneous Tissue, Percutaneous Approach (ICD-10-PCS; principal; 2021-08-23)
DX: K55.21 Angiodysplasia of colon with hemorrhage (principal); C90.00 Multiple myeloma not having achieved remission; E11.9 Type 2 diabetes mellitus without complications; Z79.4 Long term (current) use of insulin
CPT/HCPCS: 96372

== ENCOUNTER 2021-08-24 06:37 | Day surgery (SDC) | payer OTHER, MEDICARE ==
[2021-08-24] MEDS ORDERED: OCTREOTIDE ACETATE 50 MCG/1 ML - 1 ML VIAL SQ ONE (09:45)
[2021-08-24 14:24] VITALS: BP 98/58; PULSE 75; TEMP 97.2
== END 2021-08-24 10:15 | disposition home or self-care (01) ==
LOC: JONCCHEMO 06:37
PROVIDERS: ATTEND Internal Medicine Hematology & Oncology
PROC: 3E013GC Introduction of Other Therapeutic Substance into Subcutaneous Tissue, Percutaneous Approach (ICD-10-PCS; principal; 2021-08-24)
DX: K55.21 Angiodysplasia of colon with hemorrhage (principal); C90.00 Multiple myeloma not having achieved remission; E11.9 Type 2 diabetes mellitus without complications; Z79.4 Long term (current) use of insulin
CPT/HCPCS: 96372

== ENCOUNTER 2021-08-27 09:17 | Day surgery (SDC) | payer OTHER, MEDICARE ==
[2021-08-27 13:01] VITALS: BP 106/58; PULSE 79; TEMP 98.3
[2021-08-27] MEDS ORDERED: OCTREOTIDE ACETATE 50 MCG/1 ML - 1 ML VIAL IVPUSH ONE (13:15)
[2021-08-27 14:43] LABS: BASO % 0.2 % (0-2.0); EOS % 0.1 % (0-4.5); HEMATOCRIT 26.6 % (32.4-45.2); HEMOGLOBIN 9.1 GM/dL (10.7-15.3); LYMPH % 23.3 % (8-40); MCH 29.3 pg (25.7-33.7); MCHC 34.3 g/dl (32.0-36.0); MEAN CELL VOLUME 85.3 fl (80-96); MEAN PLT VOLUME 7.7 fl (7.5-11.1); MONO % 8.1 % (3.8-10.2); NEUT % 68.3 % (42.8-82.8); PLATELET COUNT 166 10^3/uL (134-434); RBC 3.11 M/mm3 (3.60-5.2); RDW 14.8 % (11.6-15.6); WHITE BLOOD COUNT 7.2 K/mm3 (4.0-10.0)
[2021-08-27 15:00] LABS: CHLORIDE 101 mmol/L (98-107); SODIUM 137 mmol/L (136-145)
[2021-08-27 15:03] LABS: ANION GAP 7 MMOL/L (8-16); BLOOD UREA NITROGEN 25.5 mg/dL (7-18); CO2 28 mmol/L (21-32); GLUCOSE,RANDOM 103 mg/dL (74-106); MAGNESIUM 2.1 mg/dL (1.8-2.4)
[2021-08-27 15:05] LABS: BILIRUBIN,DIRECT 0.2 mg/dL (0.0-0.2)
[2021-08-27 15:06] LABS: CREATININE 1.1 mg/dL (0.55-1.3); PHOSPHOROUS 4.8 mg/dL (2.5-4.9); SGOT/AST 159 U/L (15-37); SGPT/ALT 207 U/L (13-61)
[2021-08-27 15:07] LABS: BILIRUBIN,TOTAL 0.4 mg/dL (0.2-1); TOT PROT 6.4 g/dl (6.4-8.2)
[2021-08-27 15:09] LABS: ALK PHOS 219 U/L (45-117); CALCIUM 6.3 mg/dL (8.5-10.1)
== END 2021-08-27 15:42 | disposition home or self-care (01) ==
LOC: JONCCHEMO 09:17
PROVIDERS: ATTEND Internal Medicine Hematology & Oncology
PROC: 3E013GC Introduction of Other Therapeutic Substance into Subcutaneous Tissue, Percutaneous Approach (ICD-10-PCS; principal; 2021-08-27)
DX: K55.21 Angiodysplasia of colon with hemorrhage (principal); C90.00 Multiple myeloma not having achieved remission; E11.9 Type 2 diabetes mellitus without complications; Z79.4 Long term (current) use of insulin
CPT/HCPCS: 36415; 80048; 80076; 83735; 84100; 85025; 96372

== ENCOUNTER 2021-08-28 07:47 | Day surgery (SDC) | payer OTHER, MEDICARE ==
[2021-08-28 08:08] VITALS: TEMP 98.2
[2021-08-28] MEDS ORDERED: CALCIUM GLUC IN NACL, ISO-OSM 1 GM/50 ML BAG IVPB ONE (08:30)
[2021-08-28] MEDS ORDERED: OCTREOTIDE ACETATE 50 MCG/1 ML - 1 ML VIAL SQ ONE (08:30)
[2021-08-28 10:57] VITALS: BP 122/54; PULSE 76
== END 2021-08-28 10:00 | disposition home or self-care (01) ==
LOC: JONCCHEMO 07:47
PROVIDERS: ATTEND Internal Medicine Hematology & Oncology
PROC: 3E043GC Introduction of Other Therapeutic Substance into Central Vein, Percutaneous Approach (ICD-10-PCS; principal; 2021-08-28)
PROC: 3E013GC Introduction of Other Therapeutic Substance into Subcutaneous Tissue, Percutaneous Approach (ICD-10-PCS; 2021-08-28)
DX: K55.21 Angiodysplasia of colon with hemorrhage (principal); E83.51 Hypocalcemia; C90.00 Multiple myeloma not having achieved remission; E11.9 Type 2 diabetes mellitus without complications; Z79.4 Long term (current) use of insulin
CPT/HCPCS: 96365; 96372

== ENCOUNTER 2021-08-29 07:26 | Day surgery (SDC) | payer OTHER, MEDICARE ==
[2021-08-29] MEDS ORDERED: CALCIUM GLUCONATE 10% - 1,000 MG/10 ML VIAL IVPB ONE (09:57)
[2021-08-29] MEDS ORDERED: OCTREOTIDE ACETATE 50 MCG/1 ML - 1 ML VIAL SQ ONE (10:00)
[2021-08-29 11:51] LABS: CHLORIDE 101 mmol/L (98-107); SODIUM 136 mmol/L (136-145)
[2021-08-29 11:54] LABS: ANION GAP 7 MMOL/L (8-16); BLOOD UREA NITROGEN 21.3 mg/dL (7-18); CO2 28 mmol/L (21-32); GLUCOSE,RANDOM 139 mg/dL (74-106)
[2021-08-29 11:57] LABS: CREATININE 1.2 mg/dL (0.55-1.3); SGOT/AST 135 U/L (15-37); SGPT/ALT 183 U/L (13-61)
[2021-08-29 11:58] LABS: BILIRUBIN,TOTAL 0.5 mg/dL (0.2-1); TOT PROT 6.2 g/dl (6.4-8.2)
[2021-08-29 12:00] LABS: ALK PHOS 233 U/L (45-117)
[2021-08-29 12:02] LABS: CALCIUM 6.7 mg/dL (8.5-10.1)
[2021-08-29 18:16] VITALS: BP 125/62; PULSE 81; TEMP 98.1
== END 2021-08-29 11:45 | disposition home or self-care (01) ==
LOC: JONCCHEMO 07:26
PROVIDERS: ATTEND Internal Medicine Hematology & Oncology
PROC: 3E013GC Introduction of Other Therapeutic Substance into Subcutaneous Tissue, Percutaneous Approach (ICD-10-PCS; principal; 2021-08-29)
PROC: 3E033GC Introduction of Other Therapeutic Substance into Peripheral Vein, Percutaneous Approach (ICD-10-PCS; 2021-08-29)
DX: K55.21 Angiodysplasia of colon with hemorrhage (principal); E83.51 Hypocalcemia; C90.00 Multiple myeloma not having achieved remission; E11.9 Type 2 diabetes mellitus without complications
CPT/HCPCS: 36415; 80053; 96365; 96372

== ENCOUNTER 2021-08-30 08:24 | Day surgery (SDC) | payer OTHER, MEDICARE ==
[2021-08-30] MEDS ORDERED: OCTREOTIDE ACETATE 50 MCG/1 ML - 1 ML VIAL SQ ONE (09:00)
[2021-08-30] MEDS ORDERED: CALCIUM GLUC IN NACL, ISO-OSM 1 GM/50 ML BAG IVPB ONE (09:00)
[2021-08-30 09:12] VITALS: TEMP 98.3
[2021-08-30 10:00] VITALS: BP 115/53; PULSE 75
== END 2021-08-30 10:00 | disposition home or self-care (01) ==
LOC: JONCCHEMO 08:24
PROVIDERS: ATTEND Internal Medicine Hematology & Oncology
PROC: 3E043GC Introduction of Other Therapeutic Substance into Central Vein, Percutaneous Approach (ICD-10-PCS; principal; 2021-08-30)
PROC: 3E013GC Introduction of Other Therapeutic Substance into Subcutaneous Tissue, Percutaneous Approach (ICD-10-PCS; 2021-08-30)
DX: K55.21 Angiodysplasia of colon with hemorrhage (principal); E83.51 Hypocalcemia; C90.00 Multiple myeloma not having achieved remission; E11.9 Type 2 diabetes mellitus without complications
CPT/HCPCS: 96365; 96372

== ENCOUNTER 2021-08-31 07:54 | Day surgery (SDC) | payer OTHER, MEDICARE ==
[2021-08-31] MEDS ORDERED: OCTREOTIDE ACETATE 50 MCG/1 ML - 1 ML VIAL SQ ONE (09:00)
[2021-08-31] MEDS ORDERED: CALCIUM GLUCONATE IN NACL 1 GM/50 ML BAG IVPB ONE (09:45)
[2021-08-31 11:09] LABS: ALBUMIN 2.6 g/dl (3.4-5.0); ALK PHOS 232 U/L (45-117); ANION GAP 7 MMOL/L (8-16); BILIRUBIN,TOTAL 0.4 mg/dL (0.2-1); BLOOD UREA NITROGEN 22.4 mg/dL (7-18); CALCIUM 6.6 mg/dL (8.5-10.1); CHLORIDE 99 mmol/L (98-107); CO2 29 mmol/L (21-32); CREATININE 1.1 mg/dL (0.55-1.3); GLUCOSE,RANDOM 148 mg/dL (74-106); SGOT/AST 148 U/L (15-37); SGPT/ALT 158 U/L (13-61); SODIUM 136 mmol/L (136-145); TOT PROT 5.7 g/dl (6.4-8.2)
[2021-08-31 15:50] VITALS: BP 109/52; PULSE 74; TEMP 98.5
== END 2021-08-31 12:30 | disposition home or self-care (01) ==
LOC: JONCCHEMO 07:54
PROVIDERS: ATTEND Internal Medicine Hematology & Oncology
PROC: 3E043GC Introduction of Other Therapeutic Substance into Central Vein, Percutaneous Approach (ICD-10-PCS; principal; 2021-08-31)
PROC: 3E013GC Introduction of Other Therapeutic Substance into Subcutaneous Tissue, Percutaneous Approach (ICD-10-PCS; 2021-08-31)
DX: K55.21 Angiodysplasia of colon with hemorrhage (principal); E83.51 Hypocalcemia; C90.00 Multiple myeloma not having achieved remission; E11.9 Type 2 diabetes mellitus without complications
CPT/HCPCS: 36415; 80053; 82330; 96365; 96372

== ENCOUNTER 2021-09-03 06:25 | Day surgery (SDC) | payer OTHER, MEDICARE ==
[2021-09-03] MEDS ORDERED: CALCIUM GLUCONATE IN NACL 1 GM/50 ML BAG IVPB ONE (10:00)
[2021-09-03 10:14] LABS: BASO % 0.2 % (0-2.0); EOS % 0.1 % (0-4.5); HEMATOCRIT 21.9 % (32.4-45.2); HEMOGLOBIN 7.8 GM/dL (10.7-15.3); LYMPH % 29.6 % (8-40); MCH 30.2 pg (25.7-33.7); MCHC 35.5 g/dl (32.0-36.0); MEAN CELL VOLUME 84.9 fl (80-96); MEAN PLT VOLUME 7.8 fl (7.5-11.1); MONO % 9.6 % (3.8-10.2); NEUT % 60.5 % (42.8-82.8); PLATELET COUNT 147 10^3/uL (134-434); RBC 2.58 M/mm3 (3.60-5.2); WHITE BLOOD COUNT 5.2 K/mm3 (4.0-10.0)
[2021-09-03 10:34] LABS: ALBUMIN 2.9 g/dl (3.4-5.0); CALCIUM 7.1 mg/dL (8.5-10.1)
[2021-09-03 10:35] LABS: MAGNESIUM 1.9 mg/dL (1.8-2.4)
[2021-09-03 10:37] LABS: CREATININE 1.3 mg/dL (0.55-1.3)
[2021-09-03 10:38] LABS: PHOSPHOROUS 4.3 mg/dL (2.5-4.9); URIC ACID 6.9 mg/dL (2.6-7.2)
[2021-09-03 10:39] LABS: BILIRUBIN,TOTAL 0.4 mg/dL (0.2-1); TOT PROT 6.1 g/dl (6.4-8.2)
[2021-09-03] MEDS ORDERED: PORTA CATH FLUSH 10 ML IVPUSH ONE (16:52)
[2021-09-04 08:09] VITALS: BP 109/52; PULSE 74; TEMP 98.5
== END 2021-09-03 13:30 | disposition home or self-care (01) ==
LOC: JONCNONCHE 06:25
PROVIDERS: ATTEND Internal Medicine Hematology & Oncology
PROC: 3E043GC Introduction of Other Therapeutic Substance into Central Vein, Percutaneous Approach (ICD-10-PCS; principal; 2021-09-03)
DX: K55.21 Angiodysplasia of colon with hemorrhage (principal); E83.51 Hypocalcemia; C90.00 Multiple myeloma not having achieved remission; E11.9 Type 2 diabetes mellitus without complications
CPT/HCPCS: 36415; 80053; 82306; 82310; 82330; 83615; 83735; 83970; 84100; 84550; 85025; 96365

== ENCOUNTER 2021-09-05 07:25 | Day surgery (SDC) | payer OTHER, MEDICARE ==
[2021-09-05] MEDS ORDERED: FUROSEMIDE 40 MG TABLET (FP) PO ONE ×2 (09:15→15:15)
[2021-09-05] MEDS ORDERED: PORTA CATH FLUSH 10 ML IVPUSH ONE ×2 (18:31→18:44)
[2021-09-05 18:38] VITALS: BP 116/71; PULSE 87; TEMP 98.7
[2021-09-05 19:09] LABS: BASO % 0.3 % (0-2.0); EOS % 0.2 % (0-4.5); HEMATOCRIT 24.8 % (32.4-45.2); HEMOGLOBIN 8.7 GM/dL (10.7-15.3); LYMPH % 32.2 % (8-40); MCH 29.9 pg (25.7-33.7); MCHC 35.3 g/dl (32.0-36.0); MEAN CELL VOLUME 84.8 fl (80-96); MEAN PLT VOLUME 7.6 fl (7.5-11.1); MONO % 9.2 % (3.8-10.2); NEUT % 58.1 % (42.8-82.8); PLATELET COUNT 129 10^3/uL (134-434); RBC 2.92 M/mm3 (3.60-5.2); RDW 13.8 % (11.6-15.6); WHITE BLOOD COUNT 4.9 K/mm3 (4.0-10.0)
== END 2021-09-05 18:52 | disposition home or self-care (01) ==
LOC: JONCBLOOD 07:25
PROVIDERS: ATTEND Internal Medicine Hematology & Oncology
PROC: 30233H1 Transfusion of Nonautologous Whole Blood into Peripheral Vein, Percutaneous Approach (ICD-10-PCS; principal; 2021-09-05)
DX: K55.21 Angiodysplasia of colon with hemorrhage (principal); E83.51 Hypocalcemia; C90.00 Multiple myeloma not having achieved remission
CPT/HCPCS: 36415; 36430; 85025; 86850; 86900; 86901; 86922; P9058

== ENCOUNTER 2021-09-11 08:31 | Day surgery (SDC) | payer OTHER, MEDICARE ==
[2021-09-11 09:24] LABS: BASO % 0.2 % (0-2.0); EOS % 0.4 % (0-4.5); HEMATOCRIT 23.8 % (32.4-45.2); HEMOGLOBIN 8.2 GM/dL (10.7-15.3); MCH 29.8 pg (25.7-33.7); MCHC 34.6 g/dl (32.0-36.0); MEAN CELL VOLUME 86.4 fl (80-96); MEAN PLT VOLUME 7.4 fl (7.5-11.1); MONO % 8.8 % (3.8-10.2); NEUT % 53.6 % (42.8-82.8); PLATELET COUNT 137 10^3/uL (134-434); RBC 2.76 M/mm3 (3.60-5.2); RDW 14.7 % (11.6-15.6); WHITE BLOOD COUNT 4.4 K/mm3 (4.0-10.0)
[2021-09-11 09:51] LABS: MAGNESIUM 2.1 mg/dL (1.8-2.4)
[2021-09-11 09:53] LABS: ALBUMIN 2.9 g/dl (3.4-5.0); BLOOD UREA NITROGEN 19.6 mg/dL (7-18)
[2021-09-11 09:54] LABS: CREATININE 1.2 mg/dL (0.55-1.3); URIC ACID 5.7 mg/dL (2.6-7.2)
[2021-09-11 09:55] LABS: BILIRUBIN,DIRECT 0.2 mg/dL (0.0-0.2); TOT PROT 6.2 g/dl (6.4-8.2)
[2021-09-11 09:57] LABS: BILIRUBIN,TOTAL 0.4 mg/dL (0.2-1)
[2021-09-11 09:59] LABS: CALCIUM 8.6 mg/dL (8.5-10.1)
[2021-09-11] MEDS ORDERED: OCTREOTIDE ACETATE,MI-SPHERES (SANDOSTATIN LAR) 30 MG VIAL IM ONE (10:00)
[2021-09-11 18:02] VITALS: BP 90/61; PULSE 95; TEMP 97.9
[2021-09-12 16:09] LABS: BETA-2-MICROGLOBULIN 5.4 mg/L (0.6-2.4)
[2021-09-13 06:05] LABS: FREE KAP CHN UR 23.02 mg/L (1.17-86.46); KAPPA LAMBDA RATIO URIN 10.76 (1.83-14.26)
== END 2021-09-11 09:50 | disposition home or self-care (01) ==
LOC: JONCCHEMO 08:31
PROVIDERS: ATTEND Internal Medicine Hematology & Oncology
PROC: 3E013GC Introduction of Other Therapeutic Substance into Subcutaneous Tissue, Percutaneous Approach (ICD-10-PCS; principal; 2021-09-11)
DX: K55.21 Angiodysplasia of colon with hemorrhage (principal); E83.51 Hypocalcemia; C90.00 Multiple myeloma not having achieved remission; Z76.89 Persons encountering health services in other specified circumstances
CPT/HCPCS: 36415; 80048; 80076; 82232; 82784; 83615; 83735; 83883; 84155; 84165; 84550; 85025; 86335; 96372; J2353

== ENCOUNTER 2021-09-14 07:09 | Day surgery (SDC) | payer OTHER, MEDICARE ==
[2021-09-14 10:34] LABS: CALCIUM 8.2 mg/dL (8.5-10.1)
[2021-09-14 10:35] LABS: ALBUMIN 2.8 g/dl (3.4-5.0); MAGNESIUM 2.4 mg/dL (1.8-2.4)
[2021-09-14 10:38] LABS: CREATININE 1.1 mg/dL (0.55-1.3)
[2021-09-14 10:40] LABS: BILIRUBIN,TOTAL 0.4 mg/dL (0.2-1); TOT PROT 5.9 g/dl (6.4-8.2)
[2021-09-14] MEDS ORDERED: FUROSEMIDE 40 MG/4 ML INJECTABLE VIAL IVPUSH ONE (11:00)
[2021-09-14] MEDS ORDERED: FUROSEMIDE 40 MG/4 ML INJECTABLE VIAL ONE (13:35)
[2021-09-14 17:27] VITALS: BP 118/52; PULSE 74; TEMP 98.4
[2021-09-14] MEDS ORDERED: PORTA CATH FLUSH 10 ML IVPUSH ONE (17:27)
[2021-09-14 19:09] LABS: BASO % 0.3 % (0-2.0); EOS % 0.3 % (0-4.5); HEMATOCRIT 26.8 % (32.4-45.2); HEMOGLOBIN 9.4 GM/dL (10.7-15.3); LYMPH % 30.6 % (8-40); MCHC 35.1 g/dl (32.0-36.0); MEAN CELL VOLUME 85.7 fl (80-96); MEAN PLT VOLUME 7.7 fl (7.5-11.1); MONO % 8.7 % (3.8-10.2); NEUT % 60.1 % (42.8-82.8); PLATELET COUNT 157 10^3/uL (134-434); RBC 3.12 M/mm3 (3.60-5.2); RDW 14.2 % (11.6-15.6)
== END 2021-09-14 18:10 | disposition home or self-care (01) ==
LOC: JONCBLOOD 07:09
PROVIDERS: ATTEND Internal Medicine Hematology & Oncology
PROC: 30233H1 Transfusion of Nonautologous Whole Blood into Peripheral Vein, Percutaneous Approach (ICD-10-PCS; principal; 2021-09-14)
DX: K55.21 Angiodysplasia of colon with hemorrhage (principal); E83.51 Hypocalcemia; C90.00 Multiple myeloma not having achieved remission
CPT/HCPCS: 36415; 36430; 80053; 83735; 85025; 86850; 86900; 86901; 86922; P9058

== ENCOUNTER 2021-09-19 13:17 | Day surgery (SDC) | payer OTHER, MEDICARE ==
[2021-09-19] MEDS ORDERED: CALCIUM GLUCONATE 10% - 1,000 MG/10 ML VIAL IVPB ONE (14:00)
[2021-09-19] MEDS ORDERED: [UNRECOGNIZED DRUG - OTHER] IM ONE (14:00)
[2021-09-19] MEDS ORDERED: CALCIUM GLUCONATE IN NACL 1 GM/50 ML BAG IVPB ONE (14:15)
[2021-09-19 17:56] VITALS: BP 102/57; PULSE 100; TEMP 98.2
[2021-09-19] MEDS ORDERED: PORTA CATH FLUSH 10 ML IVPUSH ONE (17:56)
== END 2021-09-19 15:00 | disposition home or self-care (01) ==
LOC: JONCCHEMO 13:17
PROVIDERS: ATTEND Internal Medicine Hematology & Oncology
PROC: 3E033GC Introduction of Other Therapeutic Substance into Peripheral Vein, Percutaneous Approach (ICD-10-PCS; principal; 2021-09-19)
PROC: 3E023GC Introduction of Other Therapeutic Substance into Muscle, Percutaneous Approach (ICD-10-PCS; 2021-09-19)
DX: Z76.89 Persons encountering health services in other specified circumstances (principal); C90.00 Multiple myeloma not having achieved remission; I10 Essential (primary) hypertension; E11.9 Type 2 diabetes mellitus without complications; K55.21 Angiodysplasia of colon with hemorrhage; E83.51 Hypocalcemia
CPT/HCPCS: 96365; 96372; J0895

== ENCOUNTER 2021-09-25 07:35 | Day surgery (SDC) | payer OTHER, MEDICARE ==
[2021-09-25] MEDS ORDERED: [UNRECOGNIZED DRUG - OTHER] IM ONE (16:00)
[2021-09-25 17:23] VITALS: BP 109/60; PULSE 104; TEMP 98.4
== END 2021-09-25 17:00 | disposition home or self-care (01) ==
LOC: JONCCHEMO 07:35
PROVIDERS: ATTEND Internal Medicine Hematology & Oncology
PROC: 3E013GC Introduction of Other Therapeutic Substance into Subcutaneous Tissue, Percutaneous Approach (ICD-10-PCS; principal; 2021-09-25)
DX: E83.111 Hemochromatosis due to repeated red blood cell transfusions (principal); K55.21 Angiodysplasia of colon with hemorrhage; C90.00 Multiple myeloma not having achieved remission; E11.9 Type 2 diabetes mellitus without complications; I10 Essential (primary) hypertension
CPT/HCPCS: 96372; J0895

== ENCOUNTER 2021-09-28 08:13 | Day surgery (SDC) | payer OTHER, MEDICARE ==
[2021-09-28] MEDS ORDERED: [UNRECOGNIZED DRUG - OTHER] IM ONE (08:30)
[2021-09-28] MEDS ORDERED: FUROSEMIDE 40 MG TABLET (FP) PO ONE (09:00)
[2021-09-28 09:10] LABS: HEMATOCRIT 21.8 % (32.4-45.2); HEMOGLOBIN 7.5 GM/dL (10.7-15.3); MCH 29.7 pg (25.7-33.7); MCHC 34.6 g/dl (32.0-36.0); MEAN CELL VOLUME 85.7 fl (80-96); MEAN PLT VOLUME 7.9 fl (7.5-11.1); PLATELET COUNT 141 10^3/uL (134-434); RBC 2.54 M/mm3 (3.60-5.2); RDW 14.2 % (11.6-15.6)
[2021-09-28] MEDS ORDERED: PORTA CATH FLUSH 10 ML IVPUSH PRN (15:44)
[2021-09-28 17:55] VITALS: BP 117/48; PULSE 61; TEMP 98.1
[2021-09-28 17:58] LABS: BASO % 0.2 % (0-2.0); EOS % 0.2 % (0-4.5); HEMATOCRIT 26.9 % (32.4-45.2); HEMOGLOBIN 9.3 GM/dL (10.7-15.3); LYMPH % 31.5 % (8-40); MCH 29.5 pg (25.7-33.7); MCHC 34.7 g/dl (32.0-36.0); MEAN PLT VOLUME 7.9 fl (7.5-11.1); MONO % 8.3 % (3.8-10.2); NEUT % 59.8 % (42.8-82.8); PLATELET COUNT 140 10^3/uL (134-434); RBC 3.17 M/mm3 (3.60-5.2); RDW 14.5 % (11.6-15.6); WHITE BLOOD COUNT 5.5 K/mm3 (4.0-10.0)
== END 2021-09-28 18:00 | disposition home or self-care (01) ==
LOC: JONCBLOOD 08:13
PROVIDERS: ATTEND Internal Medicine Hematology & Oncology
PROC: 30233H1 Transfusion of Nonautologous Whole Blood into Peripheral Vein, Percutaneous Approach (ICD-10-PCS; principal; 2021-09-28)
PROC: 3E013GC Introduction of Other Therapeutic Substance into Subcutaneous Tissue, Percutaneous Approach (ICD-10-PCS; 2021-09-28)
DX: K55.21 Angiodysplasia of colon with hemorrhage (principal); C90.00 Multiple myeloma not having achieved remission; E11.9 Type 2 diabetes mellitus without complications; I10 Essential (primary) hypertension
CPT/HCPCS: 36415; 36430; 82962; 85025; 85027; 86850; 86900; 86901; 86922; 96372; J0895; P9058

== ENCOUNTER 2021-10-03 13:47 | Day surgery (SDC) | payer OTHER, MEDICARE ==
[2021-10-03] MEDS ORDERED: [UNRECOGNIZED DRUG - OTHER] IM ONE (14:30)
[2021-10-03 17:19] VITALS: BP 108/49; PULSE 72; TEMP 98.1
== END 2021-10-03 15:00 | disposition home or self-care (01) ==
LOC: JONCCHEMO 13:47
PROVIDERS: ATTEND Internal Medicine Hematology & Oncology
PROC: 3E013GC Introduction of Other Therapeutic Substance into Subcutaneous Tissue, Percutaneous Approach (ICD-10-PCS; principal; 2021-10-03)
DX: K55.21 Angiodysplasia of colon with hemorrhage (principal); C90.00 Multiple myeloma not having achieved remission; E11.9 Type 2 diabetes mellitus without complications; Z76.89 Persons encountering health services in other specified circumstances
CPT/HCPCS: 96372; J0895

== ENCOUNTER 2021-10-11 06:31 | Day surgery (SDC) | payer OTHER, MEDICARE ==
[2021-10-11 09:31] LABS: BASO % 0.3 % (0-2.0); EOS % 0.2 % (0-4.5); HEMATOCRIT 21.6 % (32.4-45.2); HEMOGLOBIN 7.6 GM/dL (10.7-15.3); LYMPH % 32.4 % (8-40); MCH 29.8 pg (25.7-33.7); MEAN PLT VOLUME 7.9 fl (7.5-11.1); MONO % 8.4 % (3.8-10.2); NEUT % 58.7 % (42.8-82.8); PLATELET COUNT 151 10^3/uL (134-434); RBC 2.55 M/mm3 (3.60-5.2); RDW 14.3 % (11.6-15.6); WHITE BLOOD COUNT 5.2 K/mm3 (4.0-10.0)
[2021-10-11] MEDS ORDERED: OCTREOTIDE ACETATE,MI-SPHERES (SANDOSTATIN LAR) 30 MG VIAL IM ONE (10:00)
[2021-10-11] MEDS ORDERED: [UNRECOGNIZED DRUG - OTHER] IM ONE (10:00)
[2021-10-11 10:08] LABS: CALCIUM 7.7 mg/dL (8.5-10.1)
[2021-10-11 10:09] LABS: ALBUMIN 2.8 g/dl (3.4-5.0); BLOOD UREA NITROGEN 23.6 mg/dL (7-18); MAGNESIUM 2.3 mg/dL (1.8-2.4)
[2021-10-11 10:12] LABS: CREATININE 1.2 mg/dL (0.55-1.3); URIC ACID 6.8 mg/dL (2.6-7.2)
[2021-10-11 10:13] LABS: BILIRUBIN,TOTAL 0.4 mg/dL (0.2-1); TOT PROT 5.7 g/dl (6.4-8.2)
[2021-10-11 16:42] VITALS: BP 98/58; PULSE 65; TEMP 97.8
[2021-10-12] MEDS ORDERED: PORTA CATH FLUSH 10 ML IVPUSH PRN (07:45)
== END 2021-10-11 16:30 | disposition home or self-care (01) ==
LOC: JONCCHEMO 06:31
PROVIDERS: ATTEND Internal Medicine Hematology & Oncology
PROC: 30233H1 Transfusion of Nonautologous Whole Blood into Peripheral Vein, Percutaneous Approach (ICD-10-PCS; principal; 2021-10-11)
PROC: 3E013GC Introduction of Other Therapeutic Substance into Subcutaneous Tissue, Percutaneous Approach (ICD-10-PCS; 2021-10-11)
PROC: 3E013GC Introduction of Other Therapeutic Substance into Subcutaneous Tissue, Percutaneous Approach (ICD-10-PCS; 2021-10-11)
DX: K55.21 Angiodysplasia of colon with hemorrhage (principal); C90.00 Multiple myeloma not having achieved remission; E11.9 Type 2 diabetes mellitus without complications
CPT/HCPCS: 36415; 36430; 80053; 83615; 83735; 84550; 85025; 86850; 86900; 86901; 86922; 96372; J0895; J2353; P9058

== ENCOUNTER 2021-10-12 07:17 | Day surgery (SDC) | payer OTHER, MEDICARE ==
[2021-10-12] MEDS ORDERED: [UNRECOGNIZED DRUG - OTHER] IM ONE (09:00)
[2021-10-12 09:10] LABS: BASO % 0.2 % (0-2.0); EOS % 0.3 % (0-4.5); HEMATOCRIT 25.6 % (32.4-45.2); HEMOGLOBIN 8.9 GM/dL (10.7-15.3); LYMPH % 27.1 % (8-40); MCH 29.4 pg (25.7-33.7); MCHC 34.6 g/dl (32.0-36.0); MEAN CELL VOLUME 84.9 fl (80-96); MONO % 7.2 % (3.8-10.2); NEUT % 65.2 % (42.8-82.8); PLATELET COUNT 152 10^3/uL (134-434); RBC 3.01 M/mm3 (3.60-5.2); RDW 13.7 % (11.6-15.6); WHITE BLOOD COUNT 4.7 K/mm3 (4.0-10.0)
[2021-10-12 16:22] VITALS: BP 102/46; PULSE 74; TEMP 97.5
[2021-10-12] MEDS ORDERED: PORTA CATH FLUSH 10 ML IVPUSH PRN (16:25)
[2021-10-12 16:57] LABS: HEMATOCRIT 28.6 % (32.4-45.2); HEMOGLOBIN 9.9 GM/dL (10.7-15.3); MCH 29.5 pg (25.7-33.7); MCHC 34.6 g/dl (32.0-36.0); MEAN CELL VOLUME 85.3 fl (80-96); PLATELET COUNT 148 10^3/uL (134-434); RBC 3.35 M/mm3 (3.60-5.2); WHITE BLOOD COUNT 5.4 K/mm3 (4.0-10.0)
== END 2021-10-12 12:45 | disposition home or self-care (01) ==
LOC: JONCBLOOD 07:17
PROVIDERS: ATTEND Internal Medicine Hematology & Oncology
PROC: 30233H1 Transfusion of Nonautologous Whole Blood into Peripheral Vein, Percutaneous Approach (ICD-10-PCS; principal; 2021-10-12)
DX: K55.21 Angiodysplasia of colon with hemorrhage (principal); C90.00 Multiple myeloma not having achieved remission; E11.9 Type 2 diabetes mellitus without complications
CPT/HCPCS: 36415; 36430; 82728; 83540; 83550; 85025; 85027; J0895; P9058

== ENCOUNTER 2021-10-17 12:21 | Day surgery (SDC) | payer OTHER, MEDICARE ==
[2021-10-17] MEDS ORDERED: [UNRECOGNIZED DRUG - OTHER] IM ONE (13:00)
[2021-10-17 18:13] VITALS: BP 118/59; PULSE 79; TEMP 98.1
== END 2021-10-17 15:10 | disposition home or self-care (01) ==
LOC: JONCCHEMO 12:21
PROVIDERS: ATTEND Internal Medicine Hematology & Oncology
PROC: 3E013GC Introduction of Other Therapeutic Substance into Subcutaneous Tissue, Percutaneous Approach (ICD-10-PCS; principal; 2021-10-17)
DX: K55.21 Angiodysplasia of colon with hemorrhage (principal); E83.111 Hemochromatosis due to repeated red blood cell transfusions
CPT/HCPCS: 96372; J0895

== ENCOUNTER 2021-10-26 06:59 | Day surgery (SDC) | payer OTHER, MEDICARE ==
[2021-10-26] MEDS ORDERED: CALCIUM GLUC IN NACL, ISO-OSM 1 GM/50 ML BAG IVPB ONE (08:30)
[2021-10-26] MEDS ORDERED: [UNRECOGNIZED DRUG - OTHER] IM ONE (10:00)
[2021-10-26] MEDS ORDERED: FUROSEMIDE 40 MG TABLET (FP) PO ONE (10:00)
[2021-10-26 17:48] VITALS: BP 129/61; PULSE 63; TEMP 98.2
[2021-10-26 17:52] LABS: BASO % 0.2 % (0-2.0); EOS % 0.1 % (0-4.5); HEMATOCRIT 26.9 % (32.4-45.2); HEMOGLOBIN 9.5 GM/dL (10.7-15.3); LYMPH % 31.1 % (8-40); MCH 30.2 pg (25.7-33.7); MCHC 35.2 g/dl (32.0-36.0); MEAN CELL VOLUME 85.7 fl (80-96); MEAN PLT VOLUME 7.6 fl (7.5-11.1); NEUT % 60.6 % (42.8-82.8); PLATELET COUNT 124 10^3/uL (134-434); RBC 3.14 M/mm3 (3.60-5.2); RDW 14.7 % (11.6-15.6); WHITE BLOOD COUNT 4.9 K/mm3 (4.0-10.0)
== END 2021-10-26 18:00 | disposition home or self-care (01) ==
LOC: JONCCHEMO 06:59
PROVIDERS: ATTEND Internal Medicine Hematology & Oncology
PROC: 30233H1 Transfusion of Nonautologous Whole Blood into Peripheral Vein, Percutaneous Approach (ICD-10-PCS; principal; 2021-10-26)
DX: K55.21 Angiodysplasia of colon with hemorrhage (principal)
CPT/HCPCS: 36415; 36430; 85025; 86850; 86900; 86901; 86922; J0895; P9058

== ENCOUNTER 2021-11-07 06:50 | Day surgery (SDC) | payer OTHER, MEDICARE ==
[2021-11-07] MEDS ORDERED: OCTREOTIDE ACETATE,MI-SPHERES (SANDOSTATIN LAR) 30 MG VIAL IM ONE (10:00)
[2021-11-07] MEDS ORDERED: [UNRECOGNIZED DRUG - OTHER] IM ONE (10:00)
[2021-11-07 12:35] VITALS: BP 106/46; PULSE 58; TEMP 98.3
== END 2021-11-07 12:30 | disposition home or self-care (01) ==
LOC: JONCCHEMO 06:50
PROVIDERS: ATTEND Internal Medicine Hematology & Oncology
PROC: 3E013GC Introduction of Other Therapeutic Substance into Subcutaneous Tissue, Percutaneous Approach (ICD-10-PCS; principal; 2021-11-07)
PROC: 3E013GC Introduction of Other Therapeutic Substance into Subcutaneous Tissue, Percutaneous Approach (ICD-10-PCS; 2021-11-07)
DX: K55.21 Angiodysplasia of colon with hemorrhage (principal); E83.111 Hemochromatosis due to repeated red blood cell transfusions; C90.00 Multiple myeloma not having achieved remission; E11.9 Type 2 diabetes mellitus without complications
CPT/HCPCS: 96372; J0895; J2353

== ENCOUNTER 2021-11-13 07:18 | Day surgery (SDC) | payer OTHER, MEDICARE ==
[2021-11-13 08:59] LABS: BASO % 0.1 % (0-2.0); EOS % 0.1 % (0-4.5); HEMATOCRIT 19.7 % (32.4-45.2); LYMPH % 37.2 % (8-40); MCH 29.8 pg (25.7-33.7); MCHC 34.7 g/dl (32.0-36.0); MEAN CELL VOLUME 86.1 fl (80-96); MEAN PLT VOLUME 8.2 fl (7.5-11.1); MONO % 8.8 % (3.8-10.2); NEUT % 53.8 % (42.8-82.8); PLATELET COUNT 118 10^3/uL (134-434); RBC 2.29 M/mm3 (3.60-5.2); RDW 14.8 % (11.6-15.6); WHITE BLOOD COUNT 4.7 K/mm3 (4.0-10.0)
[2021-11-13 09:17] LABS: HEMOGLOBIN 6.8 GM/dL (10.7-15.3)
[2021-11-13] MEDS ORDERED: FUROSEMIDE 40 MG/4 ML INJECTABLE VIAL IVPUSH ONE (14:15)
[2021-11-13] MEDS ORDERED: PORTA CATH FLUSH 10 ML IVPUSH PRN (15:58)
[2021-11-13 17:45] VITALS: BP 122/53; PULSE 65; TEMP 97.9
[2021-11-13 19:20] LABS: HEMATOCRIT 25.8 % (32.4-45.2); MCH 30.3 pg (25.7-33.7); MEAN CELL VOLUME 86.7 fl (80-96); MEAN PLT VOLUME 7.9 fl (7.5-11.1); PLATELET COUNT 113 10^3/uL (134-434); RBC 2.98 M/mm3 (3.60-5.2); RDW 14.3 % (11.6-15.6); WHITE BLOOD COUNT 4.2 K/mm3 (4.0-10.0)
[2021-11-13 20:14] LABS: ANISOCYTOSIS 2+; MACROCYTOSIS 1+
[2021-11-13 20:16] LABS: PLATELET ESTIMATE ADEQUATE
== END 2021-11-13 18:50 | disposition home or self-care (01) ==
LOC: JONCBLOOD 07:18
PROVIDERS: ATTEND Internal Medicine Hematology & Oncology
PROC: 30233H1 Transfusion of Nonautologous Whole Blood into Peripheral Vein, Percutaneous Approach (ICD-10-PCS; principal; 2021-11-13)
DX: K55.21 Angiodysplasia of colon with hemorrhage (principal); C90.00 Multiple myeloma not having achieved remission; E11.9 Type 2 diabetes mellitus without complications
CPT/HCPCS: 36415; 36430; 85025; 86850; 86900; 86901; 86922; P9058

== ENCOUNTER 2021-11-29 07:40 | Day surgery (SDC) | payer OTHER, MEDICARE ==
[2021-11-29] MEDS ORDERED: FUROSEMIDE 40 MG/4 ML INJECTABLE VIAL IVPUSH ONE (11:00)
[2021-11-29] MEDS ORDERED: PORTA CATH FLUSH 10 ML IVPUSH PRN (14:53)
[2021-11-29 16:35] VITALS: BP 116/56; PULSE 75; TEMP 97.8
[2021-11-29 17:30] LABS: BASO % 0.1 % (0-2.0); HEMATOCRIT 27.5 % (32.4-45.2); HEMOGLOBIN 9.7 GM/dL (10.7-15.3); LYMPH % 29.9 % (8-40); MCH 30.2 pg (25.7-33.7); MCHC 35.4 g/dl (32.0-36.0); MEAN CELL VOLUME 85.4 fl (80-96); MEAN PLT VOLUME 8.1 fl (7.5-11.1); PLATELET COUNT 125 10^3/uL (134-434); RBC 3.22 M/mm3 (3.60-5.2); WHITE BLOOD COUNT 5.4 K/mm3 (4.0-10.0)
[2021-11-29 19:51] LABS: ANISOCYTOSIS 0; MACROCYTOSIS 0; PLATELET ESTIMATE DECREASED
== END 2021-11-29 17:00 | disposition home or self-care (01) ==
LOC: JONCBLOOD 07:40
PROVIDERS: ATTEND Internal Medicine Hematology & Oncology
PROC: 30233H1 Transfusion of Nonautologous Whole Blood into Peripheral Vein, Percutaneous Approach (ICD-10-PCS; principal; 2021-11-29)
DX: K55.21 Angiodysplasia of colon with hemorrhage (principal); C90.00 Multiple myeloma not having achieved remission; E11.9 Type 2 diabetes mellitus without complications
CPT/HCPCS: 36415; 36430; 85025; 86850; 86900; 86901; 86922; P9058

== ENCOUNTER 2021-12-03 12:54 | Day surgery (SDC) | payer OTHER, MEDICARE ==
[2021-12-03 10:51] LABS: BASO % 0.2 % (0-2.0); HEMATOCRIT 26.1 % (32.4-45.2); HEMOGLOBIN 9.3 GM/dL (10.7-15.3); LYMPH % 27.5 % (8-40); MCH 30.5 pg (25.7-33.7); MCHC 35.5 g/dl (32.0-36.0); MEAN CELL VOLUME 85.8 fl (80-96); MEAN PLT VOLUME 8.1 fl (7.5-11.1); NEUT % 65.3 % (42.8-82.8); PLATELET COUNT 113 10^3/uL (134-434); RBC 3.04 M/mm3 (3.60-5.2); RDW 14.6 % (11.6-15.6)
[2021-12-03 11:14] LABS: CHLORIDE 101 mmol/L (98-107); SODIUM 137 mmol/L (136-145)
[2021-12-03 11:27] LABS: BILIRUBIN,DIRECT 0.2 mg/dL (0.0-0.2)
[2021-12-03 11:28] LABS: ALBUMIN 2.9 g/dl (3.4-5.0); ANION GAP 9 MMOL/L (8-16); BLOOD UREA NITROGEN 25.1 mg/dL (7-18); CO2 27 mmol/L (21-32); CREATININE 1.3 mg/dL (0.55-1.3); GLUCOSE,RANDOM 157 mg/dL (74-106); SGOT/AST 194 U/L (15-37); SGPT/ALT 220 U/L (13-61)
[2021-12-03 11:29] LABS: BILIRUBIN,TOTAL 0.7 mg/dL (0.2-1); TOT PROT 6.5 g/dl (6.4-8.2); TOT PROT 6.6 g/dl (6.4-8.2)
[2021-12-03 11:30] LABS: BILIRUBIN,TOTAL 0.5 mg/dL (0.2-1)
[2021-12-03 11:31] LABS: ALK PHOS 294 U/L (45-117)
[2021-12-03 12:07] LABS: IRON SERUM 196 ug/dL (50-175); TOTAL IRON BINDING CAPACITY 209 ug/dL (250-450)
[2021-12-03 12:12] LABS: CALCIUM 6.7 mg/dL (8.5-10.1)
[2021-12-03] MEDS ORDERED: CALCIUM GLUC IN NACL, ISO-OSM 1 GM/50 ML BAG IVPB ONE (15:00)
[2021-12-03 18:33] VITALS: TEMP 98.6
[2021-12-03 18:43] VITALS: BP 121/51; PULSE 68
[2021-12-03] MEDS ORDERED: PORTA CATH FLUSH 10 ML IVPUSH PRN (18:43)
[2021-12-04 18:07] LABS: FREE KAPPA,SERUM 271.7 mg/L (3.3-19.4)
[2021-12-05 06:07] LABS: FREE KAP CHN UR 5.51 mg/L (1.17-86.46); KAPPA LAMBDA RATIO URIN 7.35 (1.83-14.26)
== END 2021-12-03 16:30 | disposition home or self-care (01) ==
LOC: JONCNONCHE 12:54 → EDSTATUS 12:54 → JONCNONCHE 16:30
PROVIDERS: ATTEND Internal Medicine Hematology & Oncology
PROC: 3E043GC Introduction of Other Therapeutic Substance into Central Vein, Percutaneous Approach (ICD-10-PCS; principal; 2021-12-03)
DX: K55.21 Angiodysplasia of colon with hemorrhage (principal); C90.00 Multiple myeloma not having achieved remission; E11.9 Type 2 diabetes mellitus without complications; Z76.89 Persons encountering health services in other specified circumstances
CPT/HCPCS: 36415; 80048; 80053; 80076; 82728; 83540; 83550; 83735; 83883; 85025; 96365

== ENCOUNTER 2021-12-07 07:33 | Day surgery (SDC) | payer OTHER, MEDICARE ==
[2021-12-07 08:26] LABS: BASO % 0.1 % (0-2.0); HEMATOCRIT 24.5 % (32.4-45.2); HEMOGLOBIN 8.6 GM/dL (10.7-15.3); LYMPH % 33.6 % (8-40); MCHC 35.1 g/dl (32.0-36.0); MEAN CELL VOLUME 85.5 fl (80-96); MEAN PLT VOLUME 7.8 fl (7.5-11.1); MONO % 6.9 % (3.8-10.2); NEUT % 59.4 % (42.8-82.8); PLATELET COUNT 113 10^3/uL (134-434); RBC 2.86 M/mm3 (3.60-5.2); RDW 14.2 % (11.6-15.6)
[2021-12-07] MEDS ORDERED: FUROSEMIDE 40 MG/4 ML INJECTABLE VIAL IVPUSH ONE (08:45)
[2021-12-07] MEDS ORDERED: FUROSEMIDE 40 MG/4 ML INJECTABLE VIAL ONE (11:02)
[2021-12-07] MEDS ORDERED: CALCIUM GLUCONATE IN NACL 1 GM/50 ML BAG IVPB ONE (14:55)
[2021-12-07] MEDS ORDERED: PORTA CATH FLUSH 10 ML IVPUSH PRN (17:01)
[2021-12-07 17:44] VITALS: BP 115/70; PULSE 57; TEMP 97.9
[2021-12-07 18:14] LABS: HEMATOCRIT 30.3 % (32.4-45.2); HEMOGLOBIN 10.5 GM/dL (10.7-15.3); MCHC 34.7 g/dl (32.0-36.0); MEAN CELL VOLUME 86.4 fl (80-96); MEAN PLT VOLUME 7.9 fl (7.5-11.1); PLATELET COUNT 122 10^3/uL (134-434); RBC 3.51 M/mm3 (3.60-5.2); WHITE BLOOD COUNT 5.3 K/mm3 (4.0-10.0)
== END 2021-12-07 18:00 | disposition home or self-care (01) ==
LOC: JONCBLOOD 07:33
PROVIDERS: ATTEND Internal Medicine Hematology & Oncology
PROC: 30233H1 Transfusion of Nonautologous Whole Blood into Peripheral Vein, Percutaneous Approach (ICD-10-PCS; principal; 2021-12-07)
DX: K55.21 Angiodysplasia of colon with hemorrhage (principal); C90.00 Multiple myeloma not having achieved remission; E11.9 Type 2 diabetes mellitus without complications
CPT/HCPCS: 36415; 36430; 36511; 85025; 85027; 86850; 86900; 86901; 86922; P9016; P9058

== ENCOUNTER 2021-12-14 06:13 | Day surgery (SDC) | payer OTHER, MEDICARE ==
[2021-12-14] MEDS ORDERED: OCTREOTIDE ACETATE,MI-SPHERES (SANDOSTATIN LAR) 30 MG VIAL IM ONE (09:15)
[2021-12-14] MEDS ORDERED: CALCIUM GLUC IN NACL, ISO-OSM 1 GM/50 ML BAG IVPB ONE (09:15)
[2021-12-14] MEDS ORDERED: [UNRECOGNIZED DRUG - OTHER] IM ONE (09:30)
[2021-12-14 15:47] VITALS: TEMP 98.4
[2021-12-14 15:54] VITALS: BP 111/47; PULSE 57
[2021-12-14] MEDS ORDERED: PORTA CATH FLUSH 10 ML IVPUSH PRN (15:54)
== END 2021-12-14 11:05 | disposition home or self-care (01) ==
LOC: JONCCHEMO 06:13
PROVIDERS: ATTEND Internal Medicine Hematology & Oncology
PROC: 3E043GC Introduction of Other Therapeutic Substance into Central Vein, Percutaneous Approach (ICD-10-PCS; principal; 2021-12-14)
DX: K55.21 Angiodysplasia of colon with hemorrhage (principal); C90.00 Multiple myeloma not having achieved remission; E11.9 Type 2 diabetes mellitus without complications
CPT/HCPCS: 96365; 96372; J0895; J2353

== ENCOUNTER 2021-12-28 07:24 | Day surgery (SDC) | payer OTHER, MEDICARE ==
[2021-12-28] MEDS ORDERED: [UNRECOGNIZED DRUG - OTHER] IM ONE (09:15)
[2021-12-28] MEDS ORDERED: SODIUM CHLORIDE 0.9% 500 ML INFUS.BAG IV ONE (10:45)
[2021-12-28] MEDS ORDERED: FUROSEMIDE 40 MG/4 ML INJECTABLE VIAL IVPUSH ONE (11:00)
[2021-12-28] MEDS ORDERED: CALCIUM GLUCONATE 10% - 1,000 MG/10 ML VIAL IVPB ONE (12:15)
[2021-12-28 18:53] LABS: HEMATOCRIT 25.4 % (32.4-45.2); MCH 30.2 pg (25.7-33.7); MCHC 35.4 g/dl (32.0-36.0); MEAN CELL VOLUME 85.1 fl (80-96); MEAN PLT VOLUME 7.6 fl (7.5-11.1); PLATELET COUNT 127 10^3/uL (134-434); RBC 2.99 M/mm3 (3.60-5.2); RDW 13.8 % (11.6-15.6); WHITE BLOOD COUNT 4.9 K/mm3 (4.0-10.0)
[2021-12-28] MEDS ORDERED: PORTA CATH FLUSH 10 ML IVPUSH PRN (18:56)
[2021-12-28 18:58] VITALS: BP 97/42; PULSE 66; TEMP 98.1
== END 2021-12-28 18:30 | disposition home or self-care (01) ==
LOC: JONCBLOOD 07:24
PROVIDERS: ATTEND Internal Medicine Hematology & Oncology
PROC: 3E013GC Introduction of Other Therapeutic Substance into Subcutaneous Tissue, Percutaneous Approach (ICD-10-PCS; principal; 2021-12-28)
PROC: 30233H1 Transfusion of Nonautologous Whole Blood into Peripheral Vein, Percutaneous Approach (ICD-10-PCS; 2021-12-28)
DX: K55.21 Angiodysplasia of colon with hemorrhage (principal); C90.00 Multiple myeloma not having achieved remission; E11.9 Type 2 diabetes mellitus without complications
CPT/HCPCS: 36415; 36430; 85027; 86850; 86900; 86901; 86922; 96372; J0895; P9058

== ENCOUNTER 2022-01-08 07:30 | Day surgery (SDC) | payer OTHER, MEDICARE ==
[2022-01-08] MEDS ORDERED: OCTREOTIDE ACETATE,MI-SPHERES (SANDOSTATIN LAR) 30 MG VIAL IM ONE (10:00)
[2022-01-08] MEDS ORDERED: [UNRECOGNIZED DRUG - OTHER] IM ONE (10:00)
[2022-01-08 17:05] VITALS: BP 107/74; PULSE 74; TEMP 97.9
== END 2022-01-08 13:00 | disposition home or self-care (01) ==
LOC: JONCCHEMO 07:30
PROVIDERS: ATTEND Internal Medicine Hematology & Oncology
PROC: 3E023GC Introduction of Other Therapeutic Substance into Muscle, Percutaneous Approach (ICD-10-PCS; principal; 2022-01-08)
DX: K55.21 Angiodysplasia of colon with hemorrhage (principal); C90.00 Multiple myeloma not having achieved remission
CPT/HCPCS: 96372; J0895; J2353

== ENCOUNTER 2022-01-18 06:24 | Day surgery (SDC) | payer OTHER, MEDICARE ==
[2022-01-18 11:10] VITALS: BP 109/39; PULSE 69; RESP 16; TEMP 98.8
[2022-01-18] MEDS ORDERED: FUROSEMIDE 40 MG/4 ML INJECTABLE VIAL IVPUSH ONE (12:30)
[2022-01-18 18:30] LABS: BASO % 0.4 % (0-2.0); EOS % 0.1 % (0-4.5); HEMATOCRIT 24.3 % (32.4-45.2); HEMOGLOBIN 8.4 GM/dL (10.7-15.3); LYMPH % 29.4 % (8-40); MCH 29.2 pg (25.7-33.7); MCHC 34.7 g/dl (32.0-36.0); MEAN CELL VOLUME 84.3 fl (80-96); MEAN PLT VOLUME 7.5 fl (7.5-11.1); MONO % 7.1 % (3.8-10.2); PLATELET COUNT 126 10^3/uL (134-434); RBC 2.88 M/mm3 (3.60-5.2); RDW 14.5 % (11.6-15.6); WHITE BLOOD COUNT 5.1 K/mm3 (4.0-10.0)
[2022-01-18 19:17] LABS: ANISOCYTOSIS 1+; MACROCYTOSIS 0
== END 2022-01-18 18:27 | disposition home or self-care (01) ==
LOC: JONCBLOOD 06:24
PROVIDERS: ATTEND Internal Medicine Hematology & Oncology
PROC: 30233H1 Transfusion of Nonautologous Whole Blood into Peripheral Vein, Percutaneous Approach (ICD-10-PCS; principal; 2022-01-18)
DX: K55.21 Angiodysplasia of colon with hemorrhage (principal); C90.00 Multiple myeloma not having achieved remission; E11.9 Type 2 diabetes mellitus without complications
CPT/HCPCS: 36415; 36430; 85025; 86850; 86900; 86901; 86922; P9058

== ENCOUNTER 2022-02-01 06:53 | Day surgery (SDC) | payer OTHER, MEDICARE ==
[2022-02-01 08:26] LABS: BASO % 0.3 % (0-2.0); EOS % 0.3 % (0-4.5); HEMATOCRIT 18.6 % (32.4-45.2); MCH 30.5 pg (25.7-33.7); MCHC 35.8 g/dl (32.0-36.0); MEAN CELL VOLUME 85.1 fl (80-96); MEAN PLT VOLUME 7.8 fl (7.5-11.1); MONO % 6.2 % (3.8-10.2); NEUT % 65.2 % (42.8-82.8); PLATELET COUNT 130 10^3/uL (134-434); RBC 2.18 M/mm3 (3.60-5.2); RDW 14.6 % (11.6-15.6); WHITE BLOOD COUNT 4.3 K/mm3 (4.0-10.0)
[2022-02-01 08:30] LABS: HEMOGLOBIN 6.6 GM/dL (10.7-15.3)
[2022-02-01 08:51] LABS: CALCIUM 7.7 mg/dL (8.5-10.1)
[2022-02-01 08:52] LABS: ALBUMIN 2.8 g/dl (3.4-5.0); BLOOD UREA NITROGEN 27.7 mg/dL (7-18); MAGNESIUM 2.2 mg/dL (1.8-2.4)
[2022-02-01 08:53] VITALS: RESP 18
[2022-02-01 08:54] LABS: BILIRUBIN,DIRECT 0.2 mg/dL (0.0-0.2)
[2022-02-01 08:55] LABS: CREATININE 1.3 mg/dL (0.55-1.3)
[2022-02-01 08:56] LABS: BILIRUBIN,TOTAL 0.4 mg/dL (0.2-1); TOT PROT 6.2 g/dl (6.4-8.2)
[2022-02-01 09:41] LABS: MACROCYTOSIS 0; PLATELET ESTIMATE DECREASED
[2022-02-01] MEDS ORDERED: FUROSEMIDE 40 MG/4 ML INJECTABLE VIAL ONE (09:53)
[2022-02-01] MEDS ORDERED: CALCIUM GLUCONATE 10% - 1,000 MG/10 ML VIAL IVPB ONE ×2 (10:45→16:00)
[2022-02-01 10:47] LABS: ANISOCYTOSIS 1+
[2022-02-01] MEDS ORDERED: FUROSEMIDE 40 MG/4 ML INJECTABLE VIAL IVPUSH ONE (12:00)
[2022-02-01] MEDS ORDERED: PORTA CATH FLUSH 10 ML IVPUSH PRN (14:58)
[2022-02-01 17:20] VITALS: BP 117/51; PULSE 74; TEMP 98.5
[2022-02-01 17:44] LABS: HEMATOCRIT 25.2 % (32.4-45.2); MCH 30.5 pg (25.7-33.7); MCHC 35.6 g/dl (32.0-36.0); MEAN CELL VOLUME 85.6 fl (80-96); MEAN PLT VOLUME 7.6 fl (7.5-11.1); PLATELET COUNT 121 10^3/uL (134-434); RBC 2.95 M/mm3 (3.60-5.2); WHITE BLOOD COUNT 4.8 K/mm3 (4.0-10.0)
== END 2022-02-01 17:52 | disposition home or self-care (01) ==
LOC: JONCBLOOD 06:53
PROVIDERS: ATTEND Internal Medicine Hematology & Oncology
PROC: 30233H1 Transfusion of Nonautologous Whole Blood into Peripheral Vein, Percutaneous Approach (ICD-10-PCS; principal; 2022-02-01)
PROC: 3E033GC Introduction of Other Therapeutic Substance into Peripheral Vein, Percutaneous Approach (ICD-10-PCS; 2022-02-01)
DX: K55.21 Angiodysplasia of colon with hemorrhage (principal); C90.00 Multiple myeloma not having achieved remission; E11.9 Type 2 diabetes mellitus without complications
CPT/HCPCS: 36415; 36430; 80048; 80076; 82728; 83540; 83550; 83735; 85025; 85027; 86850; 86900; 86901; 86922; 96365; P9058

== ENCOUNTER 2022-02-07 14:49 | Inpatient (IN) | payer OTHER, MEDICARE ==
[2022-02-07] MEDS ORDERED: CEFTRIAXONE 1,000 MG in DEXTROSE 5%-WATER - 50 ML IVPB ONE (17:17)
[2022-02-07 19:06] LABS: BASO % 0.4 % (0-2.0); EOS % 0.5 % (0-4.5); HEMATOCRIT 20.2 % (32.4-45.2); HEMOGLOBIN 7.1 GM/dL (10.7-15.3); MCH 30.2 pg (25.7-33.7); MCHC 34.9 g/dl (32.0-36.0); MEAN CELL VOLUME 86.6 fl (80-96); MEAN PLT VOLUME 8.2 fl (7.5-11.1); MONO % 8.8 % (3.8-10.2); NEUT % 64.3 % (42.8-82.8); PLATELET COUNT 127 10^3/uL (134-434); RBC 2.33 M/mm3 (3.60-5.2); RDW 14.4 % (11.6-15.6)
[2022-02-07] MEDS ORDERED: CEFTRIAXONE 1 GM/50 ML BAG ONE (19:13)
[2022-02-07 19:30] LABS: ALBUMIN 2.8 g/dl (3.4-5.0); BLOOD UREA NITROGEN 30.7 mg/dL (7-18); CALCIUM 7.9 mg/dL (8.5-10.1); MAGNESIUM 2.2 mg/dL (1.8-2.4)
[2022-02-07 19:33] LABS: CREATININE 1.4 mg/dL (0.55-1.3)
[2022-02-07 19:34] LABS: BILIRUBIN,TOTAL 0.4 mg/dL (0.2-1); TOT PROT 6.2 g/dl (6.4-8.2)
[2022-02-07] MEDS ORDERED: CALCIUM 500MG/VIT-D 200 UNITS COMBO TABLET (FP) PO SCH (22:00)
[2022-02-08] MEDS: TORSEMIDE 100 MG TABLET PO SCH ×2 (01:49→12:13)
[2022-02-08] MEDS: ALLOPURINOL 100 MG TABLET (FP) PO SCH ×2 (01:50→10:27)
[2022-02-08 05:31] VITALS: BMI 33.1
[2022-02-08 07:19] VITALS: RESP 20
[2022-02-08 09:42] LABS: HEMATOCRIT 29.7 % (32.4-45.2); HEMOGLOBIN 10.6 GM/dL (10.7-15.3); MCHC 35.6 g/dl (32.0-36.0); MEAN CELL VOLUME 87.2 fl (80-96); MEAN PLT VOLUME 7.8 fl (7.5-11.1); PLATELET COUNT 120 10^3/uL (134-434); RBC 3.41 M/mm3 (3.60-5.2); RDW 14.1 % (11.6-15.6); WHITE BLOOD COUNT 4.2 K/mm3 (4.0-10.0)
[2022-02-08] MEDS ORDERED: LEVOTHYROXINE NA 150 MCG TABLET PO SCH (10:00)
[2022-02-08] MEDS ORDERED: FAMOTIDINE 20 MG TABLET PO SCH ×2 (10:00→22:00)
[2022-02-08] MEDS ORDERED: CEFTRIAXONE 1 GM in DEXTROSE 5%-WATER - 50 ML IVPB SCH ×4 (10:00→11:45)
[2022-02-08] MEDS ORDERED: FOLIC ACID 1 MG TABLET (FP) PO SCH (10:00)
[2022-02-08 10:06] LABS: ALBUMIN 2.8 g/dl (3.4-5.0); BLOOD UREA NITROGEN 27.4 mg/dL (7-18); CALCIUM 8.1 mg/dL (8.5-10.1)
[2022-02-08 10:09] LABS: CREATININE 1.1 mg/dL (0.55-1.3)
[2022-02-08 10:11] LABS: BILIRUBIN,TOTAL 0.9 mg/dL (0.2-1)
[2022-02-08 15:55] VITALS: BP 110/45; PULSE 76; TEMP 97.9
[2022-02-09] MEDS ORDERED: FAMOTIDINE 20 MG TABLET PO SCH (10:00)
[2022-02-09] MEDS ORDERED: PANTOPRAZOLE 40 MG TABLET PO SCH (10:00)
[2022-02-09] MEDS ORDERED: CEFTRIAXONE 1 GM in DEXTROSE 5%-WATER - 50 ML IVPB SCH ×2 (11:00→11:30)
== END 2022-02-08 16:30 | disposition home or self-care (01) | DRG 812 ==
LOC: JER 14:49 → JERBED 15:19 → OBSVTOIN 15:19 → J8W 02-08 00:53
PROVIDERS: ADMIT Internal Medicine; ATTEND Family Medicine
PROC: 30233N1 Transfusion of Nonautologous Red Blood Cells into Peripheral Vein, Percutaneous Approach (ICD-10-PCS; principal; 2022-02-07)
DX: D46.9 Myelodysplastic syndrome, unspecified (principal); C90.00 Multiple myeloma not having achieved remission; N39.0 Urinary tract infection, site not specified; N17.9 Acute kidney failure, unspecified; I25.10 Atherosclerotic heart disease of native coronary artery without angina pectoris; K21.9 Gastro-esophageal reflux disease without esophagitis; I10 Essential (primary) hypertension; K76.0 Fatty (change of) liver, not elsewhere classified; E03.9 Hypothyroidism, unspecified; R16.2 Hepatomegaly with splenomegaly, not elsewhere classified; K57.90 Diverticulosis of intestine, part unspecified, without perforation or abscess without bleeding; D50.9 Iron deficiency anemia, unspecified; E78.5 Hyperlipidemia, unspecified; K55.20 Angiodysplasia of colon without hemorrhage; G25.81 Restless legs syndrome; H40.9 Unspecified glaucoma; R79.89 Other specified abnormal findings of blood chemistry; E83.51 Hypocalcemia
CPT/HCPCS: 36415; 36430; 76705-TC; 80048; 80053; 80076; 81003; 82570; 83036; 83615; 83735; 83880; 84156; 84439; 84443; 84480; 84550; 85025; 85027; 85651; 86850; 86900; 86901; 86922; 99285-25; C9803-CS; J0895; J2353; P9058; U0003; U0005

== ENCOUNTER 2022-03-01 06:46 | Day surgery (SDC) | payer OTHER, MEDICARE ==
[2022-03-01] MEDS ORDERED: FUROSEMIDE 40 MG/4 ML INJECTABLE VIAL IVPUSH ONE ×2 (09:00→10:30)
[2022-03-01 14:35] VITALS: BP 91/31; PULSE 64; RESP 18; TEMP 97.6
[2022-03-01] MEDS ORDERED: PORTA CATH FLUSH 10 ML IVPUSH PRN (14:35)
[2022-03-01 18:43] LABS: BASO % 0.4 % (0-2.0); EOS % 0.8 % (0-4.5); HEMATOCRIT 26.2 % (32.4-45.2); LYMPH % 28.9 % (8-40); MCH 30.5 pg (25.7-33.7); MCHC 34.2 g/dl (32.0-36.0); MEAN CELL VOLUME 89.1 fl (80-96); MEAN PLT VOLUME 8.2 fl (7.5-11.1); MONO % 8.9 % (3.8-10.2); PLATELET COUNT 135 10^3/uL (134-434); RBC 2.94 M/mm3 (3.60-5.2); RDW 14.4 % (11.6-15.6); WHITE BLOOD COUNT 3.7 K/mm3 (4.0-10.0)
[2022-03-01 19:09] LABS: ANISOCYTOSIS 1+; MACROCYTOSIS 0; OVALOCYTE 1+
== END 2022-03-01 17:42 | disposition home or self-care (01) ==
LOC: JONCBLOOD 06:46
PROVIDERS: ATTEND Internal Medicine Hematology & Oncology
PROC: 30233H1 Transfusion of Nonautologous Whole Blood into Peripheral Vein, Percutaneous Approach (ICD-10-PCS; principal; 2022-03-01)
DX: K55.21 Angiodysplasia of colon with hemorrhage (principal); C90.00 Multiple myeloma not having achieved remission; E11.9 Type 2 diabetes mellitus without complications
CPT/HCPCS: 36415; 36430; 85025; 86850; 86900; 86901; 86922; P9058

== ENCOUNTER 2022-03-06 10:22 | Day surgery (SDC) | payer OTHER, MEDICARE ==
[~2022-03-06 10:22] MED LIST changes: -BEVACIZUMAB AWWB IVPB ONE; +OCTREOTIDE ACETATE,MI-SPHERES (SANDOSTATIN LAR) 30 MG VIAL IM ONE; -SODIUM CHLORIDE IVPB ONE; +[UNRECOGNIZED DRUG - OTHER] IM ONE
[2022-03-06 16:09] VITALS: BP 118/50; PULSE 68; RESP 20; TEMP 97.8
== END 2022-03-06 11:45 | disposition home or self-care (01) ==
LOC: JONCCHEMO 10:22
PROVIDERS: ATTEND Internal Medicine Hematology & Oncology
PROC: 3E013GC Introduction of Other Therapeutic Substance into Subcutaneous Tissue, Percutaneous Approach (ICD-10-PCS; principal; 2022-03-06)
PROC: 3E013GC Introduction of Other Therapeutic Substance into Subcutaneous Tissue, Percutaneous Approach (ICD-10-PCS; 2022-03-06)
DX: K55.21 Angiodysplasia of colon with hemorrhage (principal); C90.00 Multiple myeloma not having achieved remission; E11.9 Type 2 diabetes mellitus without complications; Z76.89 Persons encountering health services in other specified circumstances
CPT/HCPCS: 96372; J0895; J2353

== ENCOUNTER 2022-03-15 07:40 | Day surgery (SDC) | payer OTHER, MEDICARE ==
[2022-03-15] MEDS ORDERED: FUROSEMIDE 40 MG/4 ML INJECTABLE VIAL IVPUSH ONE (11:00)
[2022-03-15 14:14] VITALS: RESP 18
[2022-03-15] MEDS ORDERED: PORTA CATH FLUSH 10 ML IVPUSH PRN (14:52)
[2022-03-15 18:20] VITALS: BP 96/53; PULSE 62; TEMP 98.3
[2022-03-15 19:01] LABS: BASO % 0.3 % (0-2.0); EOS % 0.6 % (0-4.5); HEMATOCRIT 24.9 % (32.4-45.2); HEMOGLOBIN 8.7 GM/dL (10.7-15.3); LYMPH % 27.5 % (8-40); MCHC 34.8 g/dl (32.0-36.0); MEAN CELL VOLUME 88.9 fl (80-96); MEAN PLT VOLUME 7.9 fl (7.5-11.1); MONO % 6.8 % (3.8-10.2); NEUT % 64.8 % (42.8-82.8); PLATELET COUNT 131 10^3/uL (134-434); RBC 2.79 M/mm3 (3.60-5.2); WHITE BLOOD COUNT 4.2 K/mm3 (4.0-10.0)
[2022-03-15 20:53] LABS: ANISOCYTOSIS 2+; MACROCYTOSIS 0
== END 2022-03-15 18:10 | disposition home or self-care (01) ==
LOC: JONCBLOOD 07:40
PROVIDERS: ATTEND Internal Medicine Hematology & Oncology
PROC: 30233H1 Transfusion of Nonautologous Whole Blood into Peripheral Vein, Percutaneous Approach (ICD-10-PCS; principal; 2022-03-15)
DX: K55.21 Angiodysplasia of colon with hemorrhage (principal); C90.00 Multiple myeloma not having achieved remission; E11.9 Type 2 diabetes mellitus without complications
CPT/HCPCS: 36415; 36430; 85025; 86850; 86900; 86901; 86922; P9058

== ENCOUNTER 2022-03-29 08:20 | Day surgery (SDC) | payer OTHER, MEDICARE ==
[2022-03-29] MEDS ORDERED: FUROSEMIDE 20 MG TABLET (FP) PO ONE ×2 (10:45→13:30)
[2022-03-29 17:31] VITALS: RESP 18
[2022-03-29] MEDS: PORTA CATH FLUSH 10 ML IVPUSH PRN ×2 (18:15→18:35)
[2022-03-29 18:28] VITALS: BP 112/43; PULSE 74; TEMP 98.4
[2022-03-29 19:17] LABS: HEMATOCRIT 27.6 % (32.4-45.2); HEMOGLOBIN 9.3 GM/dL (10.7-15.3); MCH 29.5 pg (25.7-33.7); MCHC 33.8 g/dl (32.0-36.0); MEAN CELL VOLUME 87.4 fl (80-96); MEAN PLT VOLUME 8.5 fl (7.5-11.1); PLATELET COUNT 120 10^3/uL (134-434); RBC 3.16 M/mm3 (3.60-5.2); RDW 14.3 % (11.6-15.6); WHITE BLOOD COUNT 4.5 K/mm3 (4.0-10.0)
[2022-03-29 19:47] LABS: ANISOCYTOSIS 2+; MACROCYTOSIS 0; PLATELET ESTIMATE DECREASED
== END 2022-03-29 19:00 | disposition home or self-care (01) ==
LOC: JONCBLOOD 08:20
PROVIDERS: ATTEND Internal Medicine Hematology & Oncology
PROC: 30233H1 Transfusion of Nonautologous Whole Blood into Peripheral Vein, Percutaneous Approach (ICD-10-PCS; principal; 2022-03-29)
DX: K55.21 Angiodysplasia of colon with hemorrhage (principal); C90.00 Multiple myeloma not having achieved remission; E11.9 Type 2 diabetes mellitus without complications
CPT/HCPCS: 36415; 36430; 85025; 86850; 86900; 86901; 86922; P9058

== ENCOUNTER 2022-04-02 10:10 | Day surgery (SDC) | payer OTHER, MEDICARE ==
[2022-04-02 10:53] LABS: HEMATOCRIT 26.9 % (32.4-45.2); HEMOGLOBIN 9.1 GM/dL (10.7-15.3); MCHC 33.9 g/dl (32.0-36.0); MEAN CELL VOLUME 88.5 fl (80-96); PLATELET COUNT 120 10^3/uL (134-434); RBC 3.04 M/mm3 (3.60-5.2); RDW 14.6 % (11.6-15.6); WHITE BLOOD COUNT 4.4 K/mm3 (4.0-10.0)
[2022-04-02 11:15] LABS: CALCIUM 7.6 mg/dL (8.5-10.1)
[2022-04-02 11:16] LABS: BLOOD UREA NITROGEN 28.6 mg/dL (7-18)
[2022-04-02 11:18] LABS: URIC ACID 6.6 mg/dL (2.6-7.2)
[2022-04-02 11:19] LABS: BILIRUBIN,DIRECT 0.2 mg/dL (0.0-0.2); CREATININE 1.2 mg/dL (0.55-1.3)
[2022-04-02 11:20] LABS: TOT PROT 6.3 g/dl (6.4-8.2)
[2022-04-02 11:21] LABS: BILIRUBIN,TOTAL 0.4 mg/dL (0.2-1)
[2022-04-02 11:49] LABS: ANISOCYTOSIS 0; HELMET CELLS 0; HOWELL-JOLLY BODIES 0; MACROCYTOSIS 0; OVALOCYTE 0; ROULEAU 0; SICKELED CELLS 0; TARGET CELLS 0; TEAR DROP CELLS 0; TOXIC GRANULATION 0
[2022-04-02 14:43] VITALS: BP 112/47; PULSE 70; RESP 18; TEMP 98.1
== END 2022-04-02 11:30 | disposition home or self-care (01) ==
LOC: JONCCHEMO 10:10
PROVIDERS: ATTEND Internal Medicine Hematology & Oncology
PROC: 3E013GC Introduction of Other Therapeutic Substance into Subcutaneous Tissue, Percutaneous Approach (ICD-10-PCS; principal; 2022-04-02)
PROC: 3E013GC Introduction of Other Therapeutic Substance into Subcutaneous Tissue, Percutaneous Approach (ICD-10-PCS; 2022-04-02)
DX: K55.21 Angiodysplasia of colon with hemorrhage (principal); C90.00 Multiple myeloma not having achieved remission; E11.9 Type 2 diabetes mellitus without complications
CPT/HCPCS: 36415; 80048; 80076; 83615; 83735; 84550; 85025; 96372; J0895; J2353

== ENCOUNTER 2022-04-12 08:03 | Day surgery (SDC) | payer OTHER, MEDICARE ==
[2022-04-12] MEDS ORDERED: FUROSEMIDE 40 MG TABLET (FP) PO ONE (10:00)
[2022-04-12 16:49] VITALS: BP 98/37; PULSE 79; RESP 20; TEMP 98.4
[2022-04-12] MEDS ORDERED: PORTA CATH FLUSH 10 ML IVPUSH PRN (16:49)
[2022-04-12 18:45] LABS: BASO % 0.3 % (0-2.0); EOS % 0.2 % (0-4.5); HEMATOCRIT 26.8 % (32.4-45.2); HEMOGLOBIN 9.3 GM/dL (10.7-15.3); LYMPH % 28.6 % (8-40); MCH 30.6 pg (25.7-33.7); MCHC 34.8 g/dl (32.0-36.0); MEAN CELL VOLUME 87.7 fl (80-96); MEAN PLT VOLUME 7.8 fl (7.5-11.1); MONO % 7.4 % (3.8-10.2); NEUT % 63.5 % (42.8-82.8); PLATELET COUNT 137 10^3/uL (134-434); RBC 3.05 M/mm3 (3.60-5.2); RDW 14.1 % (11.6-15.6); WHITE BLOOD COUNT 4.9 K/mm3 (4.0-10.0)
[2022-04-12 19:22] LABS: ANISOCYTOSIS 1+; MACROCYTOSIS 1+; ROULEAU 1+
== END 2022-04-12 18:12 | disposition home or self-care (01) ==
LOC: JONCBLOOD 08:03
PROVIDERS: ATTEND Internal Medicine Hematology & Oncology
PROC: 30233H1 Transfusion of Nonautologous Whole Blood into Peripheral Vein, Percutaneous Approach (ICD-10-PCS; principal; 2022-04-12)
DX: K55.21 Angiodysplasia of colon with hemorrhage (principal); C90.00 Multiple myeloma not having achieved remission; E11.9 Type 2 diabetes mellitus without complications
CPT/HCPCS: 36415; 36430; 85025; 86850; 86900; 86901; 86922; P9058

== ENCOUNTER 2022-05-03 07:59 | Day surgery (SDC) | payer OTHER, MEDICARE ==
[2022-05-03 08:34] LABS: HEMATOCRIT 20.4 % (32.4-45.2); MCH 30.5 pg (25.7-33.7); MCHC 34.3 g/dl (32.0-36.0); MEAN PLT VOLUME 7.8 fl (7.5-11.1); PLATELET COUNT 183 10^3/uL (134-434); RBC 2.29 M/mm3 (3.60-5.2); RDW 14.5 % (11.6-15.6); WHITE BLOOD COUNT 7.5 K/mm3 (4.0-10.0)
[2022-05-03 09:15] LABS: ANISOCYTOSIS 1+; MACROCYTOSIS 0
[2022-05-03] MEDS ORDERED: [UNRECOGNIZED DRUG - OTHER] IM ONE (10:00)
[2022-05-03] MEDS ORDERED: OCTREOTIDE ACETATE,MI-SPHERES (SANDOSTATIN LAR) 30 MG VIAL IM ONE (10:00)
[2022-05-03] MEDS ORDERED: FUROSEMIDE 40 MG/4 ML INJECTABLE VIAL ONE (14:02)
[2022-05-03] MEDS ORDERED: FUROSEMIDE 40 MG/4 ML INJECTABLE VIAL IVPUSH ONE (14:15)
[2022-05-03 17:57] LABS: HEMATOCRIT 23.7 % (32.4-45.2); HEMOGLOBIN 8.2 GM/dL (10.7-15.3); MCHC 34.6 g/dl (32.0-36.0); MEAN PLT VOLUME 7.2 fl (7.5-11.1); PLATELET COUNT 153 10^3/uL (134-434); RBC 2.73 M/mm3 (3.60-5.2); RDW 15.4 % (11.6-15.6); WHITE BLOOD COUNT 5.5 K/mm3 (4.0-10.0)
[2022-05-03 18:54] VITALS: BP 101/40; PULSE 67; RESP 20; TEMP 98.6
[2022-05-03] MEDS ORDERED: PORTA CATH FLUSH 10 ML IVPUSH PRN (18:54)
== END 2022-05-03 18:00 | disposition home or self-care (01) ==
LOC: JONCCHEMO 07:59
PROVIDERS: ATTEND Internal Medicine Hematology & Oncology
PROC: 30233H1 Transfusion of Nonautologous Whole Blood into Peripheral Vein, Percutaneous Approach (ICD-10-PCS; principal; 2022-05-03)
PROC: 3E043GC Introduction of Other Therapeutic Substance into Central Vein, Percutaneous Approach (ICD-10-PCS; 2022-05-03)
PROC: 3E013GC Introduction of Other Therapeutic Substance into Subcutaneous Tissue, Percutaneous Approach (ICD-10-PCS; 2022-05-03)
DX: K55.21 Angiodysplasia of colon with hemorrhage (principal); C90.00 Multiple myeloma not having achieved remission; E11.9 Type 2 diabetes mellitus without complications
CPT/HCPCS: 36415; 36430; 85025; 85027; 86850; 86900; 86901; 86922; 96372; 96374; J0895; J2353; P9058

== ENCOUNTER 2022-05-07 09:36 | Inpatient (IN) | payer OTHER, MEDICARE ==
[2022-05-07] MEDS ORDERED: SODIUM CHLORIDE 0.9% 500 ML INFUS.BAG IV ONE (10:22)
[2022-05-07 10:55] LABS: HEMATOCRIT 15.3 % (32.4-45.2); MCH 30.6 pg (25.7-33.7); MCHC 34.9 g/dl (32.0-36.0); MEAN CELL VOLUME 87.6 fl (80-96); PLATELET COUNT 188 10^3/uL (134-434); RBC 1.74 M/mm3 (3.60-5.2); RDW 14.8 % (11.6-15.6); WHITE BLOOD COUNT 7.3 K/mm3 (4.0-10.0)
[2022-05-07 11:02] LABS: HEMOGLOBIN 5.3 GM/dL (10.7-15.3)
[2022-05-07 11:29] LABS: EPI CELLS 2 /uL (0-25.1); HYALINE CASTS 1 /uL (0-3.1); PH,URINE 5.5 (5.0-8.0); URINE APPEARANCE CLOUDY; URINE BACTERIA >9,000 /uL (0-1359); URINE BILIRUBIN NEGATIVE (NEGATIVE); URINE COLOR DK YELLOW; URINE GLUCOSE (UA) NEGATIVE (NEGATIVE); URINE KETONE NEGATIVE (NEGATIVE); URINE LEUK ESTERASE 3+ (NEGATIVE); URINE NITRITE POSITIVE (NEGATIVE); URINE PROTEIN NEGATIVE (NEGATIVE); URINE RBC 13 /uL (0-23.9); URINE WBC 262 /uL (0-25.8)
[2022-05-07 11:53] LABS: ANISOCYTOSIS 0; HELMET CELLS 0; HOWELL-JOLLY BODIES 0; MACROCYTOSIS 0; OVALOCYTE 0; ROULEAU 0; SICKELED CELLS 0; TARGET CELLS 0; TEAR DROP CELLS 0; TOXIC GRANULATION 0
[2022-05-07 13:41] LABS: ALBUMIN 2.9 g/dl (3.4-5.0); BILIRUBIN,TOTAL 0.6 mg/dL (0.2-1); BLOOD UREA NITROGEN 48.3 mg/dL (7-18); CALCIUM 12.3 mg/dL (8.5-10.1); CREATININE 1.5 mg/dL (0.55-1.3); MAGNESIUM 2.3 mg/dL (1.8-2.4); PHOSPHOROUS 4.3 mg/dL (2.5-4.9); TOT PROT 6.6 g/dl (6.4-8.2)
[2022-05-07 14:07] LABS: HEMATOCRIT 25.3 % (32.4-45.2); HEMOGLOBIN 8.6 GM/dL (10.7-15.3); MCH 29.9 pg (25.7-33.7); MCHC 34.1 g/dl (32.0-36.0); MEAN CELL VOLUME 87.8 fl (80-96); MEAN PLT VOLUME 7.9 fl (7.5-11.1); PLATELET COUNT 148 10^3/uL (134-434); RBC 2.88 M/mm3 (3.60-5.2); RDW 14.6 % (11.6-15.6); WHITE BLOOD COUNT 5.9 K/mm3 (4.0-10.0)
[2022-05-07] MEDS ORDERED: CEFTRIAXONE 1,000 MG in DEXTROSE 5%-WATER - 50 ML IVPB ONE (14:21)
[2022-05-07] MEDS ORDERED: CEFTRIAXONE 1 GM/50 ML BAG ONE (14:25)
[2022-05-07] MEDS ORDERED: FUROSEMIDE 40 MG/4 ML INJECTABLE VIAL IVPUSH ONE (14:25)
[2022-05-07] MEDS ORDERED: methylPREDNISolone NA SUCC 125 MG/2 ML VIAL IVPUSH ONE (14:25)
[2022-05-07 14:39] LABS: ANISOCYTOSIS 0; HELMET CELLS 0; HOWELL-JOLLY BODIES 0; MACROCYTOSIS 0; OVALOCYTE 0; ROULEAU 0; SICKELED CELLS 0; TARGET CELLS 0; TEAR DROP CELLS 0; TOXIC GRANULATION 0
[2022-05-07 14:45] LABS: CHLORIDE 99 mmol/L (98-107); SODIUM 140 mmol/L (136-145)
[2022-05-07 14:47] LABS: ANION GAP 5 MMOL/L (8-16); CALCIUM 12.3 mg/dL (8.5-10.1); CO2 36 mmol/L (21-32)
[2022-05-07 14:48] LABS: BLOOD UREA NITROGEN 46.9 mg/dL (7-18); MAGNESIUM 2.3 mg/dL (1.8-2.4)
[2022-05-07] MEDS ORDERED: SODIUM CHLORIDE 250 ML IV STA (14:48)
[2022-05-07 14:50] LABS: CREATININE 1.3 mg/dL (0.55-1.3); PHOSPHOROUS 4.1 mg/dL (2.5-4.9); SGOT/AST 147 U/L (15-37); SGPT/ALT 147 U/L (13-61)
[2022-05-07] MEDS ORDERED: methylPREDNISolone NA SUCC 125 MG/2 ML VIAL ONE (14:51)
[2022-05-07] MEDS ORDERED: FUROSEMIDE 40 MG/4 ML INJECTABLE VIAL ONE (14:51)
[2022-05-07 14:52] LABS: BILIRUBIN,TOTAL 0.5 mg/dL (0.2-1); TOT PROT 6.6 g/dl (6.4-8.2)
[2022-05-07 14:53] LABS: ALK PHOS 349 U/L (45-117)
[2022-05-07 15:18] LABS: GLUCOSE,RANDOM 41 mg/dL (74-106)
[2022-05-07] MEDS ORDERED: DEXTROSE 50%-WATER - 25 GM/50 ML VIAL IVPUSH ONE (15:22)
[2022-05-07] MEDS ORDERED: DEXTROSE 50%-WATER 25 GM/50 ML DISP.SYRIN ONE (15:24)
[2022-05-07] MEDS ORDERED: ALPRAZolam 0.25 MG TABLET PO PRN (15:53)
[2022-05-07] MEDS ORDERED: POTASSIUM CHLORIDE TABS 10 MEQ TABLET.ER (FP) PO ONE (15:55)
[2022-05-07] MEDS ORDERED: POTASSIUM CHLORIDE TABS 20 MEQ TABLET.ER (FP) PO ONE (16:17)
[2022-05-07] MEDS ORDERED: FLU VACC QS2022-23(6MOS UP)/PF 60 MCG/0.5 ML SYRINGE IM ONE (20:00)
[2022-05-07] MEDS: metoPROLOL SUCCINATE 25 MG TAB.SR.24H (FP) PO SCH (22:58)
[2022-05-07] MEDS: ACETAMINOPHEN 325 MG TABLET (FP) PO PRN (22:58)
[2022-05-08] MEDS ORDERED: PHENAZOPYRIDINE HCL 100 MG TABLET (FP) PO ONE ×2 (01:38)
[2022-05-08] MEDS ORDERED: ACETAMINOPHEN 1000 MG/100 ML BAG IVPB ONE ×2 (03:21→13:30)
[2022-05-08] MEDS ORDERED: traMADol HCL 50 MG TABLET PO ONE ×2 (03:21→13:30)
[2022-05-08] MEDS ORDERED: LEVOTHYROXINE NA 150 MCG TABLET PO SCH (07:00)
[2022-05-08 07:02] LABS: HEMATOCRIT 23.1 % (32.4-45.2); HEMOGLOBIN 7.7 GM/dL (10.7-15.3); MCH 29.4 pg (25.7-33.7); MCHC 33.2 g/dl (32.0-36.0); MEAN CELL VOLUME 88.6 fl (80-96); MEAN PLT VOLUME 8.4 fl (7.5-11.1); PLATELET COUNT 140 10^3/uL (134-434); RDW 14.8 % (11.6-15.6); WHITE BLOOD COUNT 6.1 K/mm3 (4.0-10.0)
[2022-05-08] MEDS: PRAMIPEXOLE DIHYDROCHLORIDE 0.5 MG TABLET PO SCH (07:06)
[2022-05-08] MEDS: LEVOTHYROXINE NA 75 MCG TABLET (FP) PO SCH (07:07)
[2022-05-08 07:24] LABS: CALCIUM 10.7 mg/dL (8.5-10.1)
[2022-05-08 07:25] LABS: ALBUMIN 2.6 g/dl (3.4-5.0); BLOOD UREA NITROGEN 48.8 mg/dL (7-18)
[2022-05-08 07:28] LABS: CREATININE 1.5 mg/dL (0.55-1.3)
[2022-05-08 07:29] LABS: BILIRUBIN,TOTAL 0.4 mg/dL (0.2-1)
[2022-05-08] MEDS ORDERED: FLU VACC QS2022-23(6MOS UP)/PF 60 MCG/0.5 ML SYRINGE IM ONE (10:00)
[2022-05-08] MEDS ORDERED: HYDROCHLOROTHIAZIDE 25 MG TABLET (FP) PO SCH (10:00)
[2022-05-08] MEDS: metoPROLOL SUCCINATE 25 MG TAB.SR.24H (FP) PO SCH ×2 (10:39→22:49)
[2022-05-08] MEDS: TORSEMIDE 20 MG TABLET (FP) PO SCH (10:40)
[2022-05-08] MEDS: ALLOPURINOL 100 MG TABLET (FP) PO SCH (10:40)
[2022-05-08] MEDS ORDERED: POTASSIUM CHLORIDE TABS 20 MEQ TABLET.ER (FP) PO ONE ×2 (12:26→20:00)
[2022-05-09] MEDS: D5-1/2NS+20 MEQ KCL - 20 MEQ/1,000 ML INFUS.BAG IV SCH ×2 (01:12→15:38)
[2022-05-09] MEDS: LEVOTHYROXINE NA 75 MCG TABLET (FP) PO SCH (06:21)
[2022-05-09] MEDS: PRAMIPEXOLE DIHYDROCHLORIDE 0.5 MG TABLET PO SCH (06:21)
[2022-05-09] MEDS ORDERED: CEFTRIAXONE 1 GM in DEXTROSE 5%-WATER - 50 ML IVPB ONE (08:30)
[2022-05-09 09:28] LABS: ALBUMIN 2.4 g/dl (3.4-5.0); BILIRUBIN,TOTAL 0.3 mg/dL (0.2-1); BLOOD UREA NITROGEN 58.8 mg/dL (7-18); CALCIUM 9.8 mg/dL (8.5-10.1); CREATININE 1.4 mg/dL (0.55-1.3); TOT PROT 5.3 g/dl (6.4-8.2)
[2022-05-09] MEDS: traMADol HCL 50 MG TABLET PO PRN ×2 (10:25→18:16)
[2022-05-09] MEDS: TORSEMIDE 20 MG TABLET (FP) PO SCH (10:26)
[2022-05-09] MEDS: ALLOPURINOL 100 MG TABLET (FP) PO SCH (10:27)
[2022-05-09] MEDS: metoPROLOL SUCCINATE 25 MG TAB.SR.24H (FP) PO SCH ×3 (10:27→21:33)
[2022-05-09 13:46] VITALS: BMI 31.8
[2022-05-09] MEDS ORDERED: POTASSIUM CHLORIDE TABS 20 MEQ TABLET.ER (FP) PO ONE (14:30)
[2022-05-09] MEDS ORDERED: PORTA CATH FLUSH 10 ML IVPUSH PRN (15:13)
[2022-05-09 21:35] VITALS: RESP 18
[2022-05-10] MEDS: hydrOXYzine HCL 10 MG/5 ML LIQUID BULK BOTTLE PO ONE ×2 (01:37→06:54)
[2022-05-10] MEDS: D5-1/2NS+20 MEQ KCL - 20 MEQ/1,000 ML INFUS.BAG IV SCH (04:56)
[2022-05-10] MEDS: PRAMIPEXOLE DIHYDROCHLORIDE 0.5 MG TABLET PO SCH (06:24)
[2022-05-10] MEDS: LEVOTHYROXINE NA 75 MCG TABLET (FP) PO SCH (06:24)
[2022-05-10] MEDS: metoPROLOL SUCCINATE 25 MG TAB.SR.24H (FP) PO SCH (09:53)
[2022-05-10] MEDS: TORSEMIDE 20 MG TABLET (FP) PO SCH (09:53)
[2022-05-10] MEDS: ALLOPURINOL 100 MG TABLET (FP) PO SCH (09:53)
[2022-05-10] MEDS: ACETAMINOPHEN 325 MG TABLET (FP) PO PRN (09:54)
[2022-05-10] MEDS ORDERED: FAMOTIDINE 20 MG TABLET PO SCH (10:00)
[2022-05-10] MEDS ORDERED: CEFTRIAXONE 2 GM in DEXTROSE 5%-WATER 100 ML IVPB SCH (10:00)
[2022-05-10 10:53] VITALS: BP 102/42; PULSE 76; TEMP 97.4
[2022-05-10] MEDS: traMADol HCL 50 MG TABLET PO PRN (11:15)
== END 2022-05-10 14:52 | disposition home or self-care (01) | DRG 841 ==
LOC: JER 09:36 → JERBED 14:33 → OBSVTOIN 15:48 → J7W 17:50
PROVIDERS: ADMIT Family Medicine; ATTEND Family Medicine
DX: C90.00 Multiple myeloma not having achieved remission (principal); N17.9 Acute kidney failure, unspecified; N39.0 Urinary tract infection, site not specified; E83.52 Hypercalcemia; I25.10 Atherosclerotic heart disease of native coronary artery without angina pectoris; E78.5 Hyperlipidemia, unspecified; I10 Essential (primary) hypertension; E03.9 Hypothyroidism, unspecified; B96.20 Unspecified Escherichia coli [E. coli] as the cause of diseases classified elsewhere; D47.2 Monoclonal gammopathy; K21.9 Gastro-esophageal reflux disease without esophagitis; R16.2 Hepatomegaly with splenomegaly, not elsewhere classified; K76.0 Fatty (change of) liver, not elsewhere classified; K57.90 Diverticulosis of intestine, part unspecified, without perforation or abscess without bleeding; G25.81 Restless legs syndrome; H40.9 Unspecified glaucoma; D46.9 Myelodysplastic syndrome, unspecified; F41.9 Anxiety disorder, unspecified; R60.0 Localized edema; D50.9 Iron deficiency anemia, unspecified; E87.6 Hypokalemia; N28.1 Cyst of kidney, acquired
CPT/HCPCS: 36415; 70450-TC; 71045-TC-FY; 76775-TC; 76856-TC; 80053; 81003; 82272; 82310; 82330; 82668; 82962; 83690; 83735; 83970; 84100; 85025; 85027; 85045; 86850; 86880; 86900; 86901; 86922; 87086; 87186; 88300-TC; 93005; 93010; 97116-GP; 97161-GP; 99285-25; C9803-CS; G0378; U0003; U0005

== ENCOUNTER 2022-05-15 07:50 | Day surgery (SDC) | payer OTHER, MEDICARE ==
[2022-05-15] MEDS ORDERED: FUROSEMIDE 40 MG/4 ML INJECTABLE VIAL IVPUSH SCH (08:30)
[2022-05-15 15:55] VITALS: TEMP 98.2
[2022-05-15] MEDS ORDERED: PORTA CATH FLUSH 10 ML IVPUSH PRN (16:05)
[2022-05-15 17:10] VITALS: BP 106/50; PULSE 67; RESP 16
[2022-05-15 17:59] LABS: HEMATOCRIT 26.3 % (32.4-45.2); HEMOGLOBIN 8.8 GM/dL (10.7-15.3); MCH 29.6 pg (25.7-33.7); MCHC 33.7 g/dl (32.0-36.0); MEAN CELL VOLUME 87.9 fl (80-96); PLATELET COUNT 124 10^3/uL (134-434); RBC 2.99 M/mm3 (3.60-5.2); RDW 15.2 % (11.6-15.6)
[2022-05-15 18:45] LABS: ANISOCYTOSIS 1+; MACROCYTOSIS 0; PLATELET ESTIMATE DECREASED
== END 2022-05-15 18:15 | disposition home or self-care (01) ==
LOC: JONCBLOOD 07:50
PROVIDERS: ATTEND Internal Medicine Hematology & Oncology
PROC: 30233H1 Transfusion of Nonautologous Whole Blood into Peripheral Vein, Percutaneous Approach (ICD-10-PCS; principal; 2022-05-15)
DX: K55.21 Angiodysplasia of colon with hemorrhage (principal); C90.00 Multiple myeloma not having achieved remission
CPT/HCPCS: 36415; 36430; 85025; 86850; 86900; 86901; 86922; P9058

== ENCOUNTER → 2022-05-24 | Day surgery (SDC) | payer OTHER, MEDICARE ==
[~2022-05-24] MED LIST changes: +FUROSEMIDE 40 MG/4 ML INJECTABLE VIAL IVPUSH ONE; -OCTREOTIDE ACETATE,MI-SPHERES (SANDOSTATIN LAR) 30 MG VIAL IM ONE; +PORTA CATH FLUSH 10 ML IVPUSH PRN; -[UNRECOGNIZED DRUG - OTHER] IM ONE
[2022-05-24 09:11] LABS: ALBUMIN 2.7 g/dl (3.4-5.0); CALCIUM 8.6 mg/dL (8.5-10.1); MAGNESIUM 1.9 mg/dL (1.8-2.4)
[2022-05-24 09:15] LABS: CREATININE 1.7 mg/dL (0.55-1.3)
[2022-05-24 09:16] LABS: BILIRUBIN,TOTAL 0.8 mg/dL (0.2-1)
[2022-05-24 14:25] LABS: BASO % 0.3 % (0-2.0); EOS % 0.5 % (0-4.5); HEMATOCRIT 26.4 % (32.4-45.2); HEMOGLOBIN 8.9 GM/dL (10.7-15.3); LYMPH % 36.5 % (8-40); MCH 29.9 pg (25.7-33.7); MCHC 33.8 g/dl (32.0-36.0); MEAN CELL VOLUME 88.5 fl (80-96); MEAN PLT VOLUME 8.8 fl (7.5-11.1); MONO % 6.5 % (3.8-10.2); NEUT % 56.2 % (42.8-82.8); PLATELET COUNT 117 10^3/uL (134-434); RBC 2.98 M/mm3 (3.60-5.2); RDW 15.4 % (11.6-15.6); WHITE BLOOD COUNT 3.7 K/mm3 (4.0-10.0)
[2022-05-24 17:20] VITALS: BP 105/41; PULSE 78; RESP 16; TEMP 98.3
[2022-05-24 19:56] LABS: BASO % 0.5 % (0-2.0); EOS % 0.5 % (0-4.5); HEMATOCRIT 31.9 % (32.4-45.2); HEMOGLOBIN 10.8 GM/dL (10.7-15.3); LYMPH % 39.1 % (8-40); MCH 29.8 pg (25.7-33.7); MEAN CELL VOLUME 87.7 fl (80-96); MEAN PLT VOLUME 8.5 fl (7.5-11.1); MONO % 7.6 % (3.8-10.2); NEUT % 52.3 % (42.8-82.8); PLATELET COUNT 125 10^3/uL (134-434); RBC 3.64 M/mm3 (3.60-5.2); WHITE BLOOD COUNT 4.8 K/mm3 (4.0-10.0)
== END | disposition home or self-care (01) ==
LOC: JONCBLOOD 08:04
PROVIDERS: ATTEND Internal Medicine Hematology & Oncology
PROC: 30233N1 Transfusion of Nonautologous Red Blood Cells into Peripheral Vein, Percutaneous Approach (ICD-10-PCS; principal; 2022-05-24)
DX: D64.9 Anemia, unspecified (principal)
CPT/HCPCS: 36415; 36430; 80048; 80053; 83735; 85025; 86850; 86900; 86901; 86922; P9038; P9058

== ENCOUNTER 2022-06-04 13:08 | Inpatient (IN) | payer OTHER, MEDICARE ==
[2022-06-04] MEDS ORDERED: DEXTROSE 50%-WATER 25 GM/50 ML DISP.SYRIN ONE (13:26)
[2022-06-04] MEDS ORDERED: DEXTROSE 50%-WATER - 25 GM/50 ML VIAL IVPUSH ONE (13:31)
[2022-06-04 14:10] LABS: HEMATOCRIT 28.8 % (32.4-45.2); HEMOGLOBIN 9.8 GM/dL (10.7-15.3); MCHC 34.1 g/dl (32.0-36.0); MEAN CELL VOLUME 87.9 fl (80-96); MEAN PLT VOLUME 7.9 fl (7.5-11.1); PLATELET COUNT 169 10^3/uL (134-434); RBC 3.27 M/mm3 (3.60-5.2); RDW 14.9 % (11.6-15.6); WHITE BLOOD COUNT 6.3 K/mm3 (4.0-10.0)
[2022-06-04 14:33] LABS: CHLORIDE 100 mmol/L (98-107); SODIUM 142 mmol/L (136-145)
[2022-06-04 14:36] LABS: ALBUMIN 2.7 g/dl (3.4-5.0)
[2022-06-04 14:37] LABS: ANION GAP 8 MMOL/L (8-16); BLOOD UREA NITROGEN 27.6 mg/dL (7-18); CO2 34 mmol/L (21-32); MAGNESIUM 2.2 mg/dL (1.8-2.4)
[2022-06-04 14:39] LABS: CREATININE 1.2 mg/dL (0.55-1.3)
[2022-06-04 14:40] LABS: SGOT/AST 247 U/L (15-37); SGPT/ALT 208 U/L (13-61)
[2022-06-04 14:41] LABS: BILIRUBIN,TOTAL 0.3 mg/dL (0.2-1); TOT PROT 6.3 g/dl (6.4-8.2)
[2022-06-04 14:42] LABS: ALK PHOS 327 U/L (45-117)
[2022-06-04 15:12] LABS: CALCIUM 14.6 mg/dL (8.5-10.1); GLUCOSE,RANDOM 17 mg/dL (74-106)
[2022-06-04 15:16] LABS: ANISOCYTOSIS 0; HELMET CELLS 0; HOWELL-JOLLY BODIES 0; MACROCYTOSIS 0; OVALOCYTE 0; ROULEAU 0; SICKELED CELLS 0; TARGET CELLS 0; TEAR DROP CELLS 0; TOXIC GRANULATION 0
[2022-06-04] MEDS ORDERED: SODIUM CHLORIDE 1,000 ML IV STA ×2 (15:37→15:39)
[2022-06-04] MEDS ORDERED: CALCITONIN - SALMON SYNTHETIC 400 UNIT/2 ML VIAL IM ONE (16:01)
[2022-06-04] MEDS ORDERED: ZOLEDRONIC ACID 4 MG in SODIUM CHLORIDE 100 ML IVPB ONE (16:07)
[2022-06-04] MEDS ORDERED: DENOSUMAB 120 MG/1.7 ML VIAL SQ ONE (16:23)
[2022-06-04] MEDS ORDERED: DEXTROSE 5%-NORMAL SALINE 1,000 ML IV SCH (19:30)
[2022-06-04] MEDS ORDERED: DEXTROSE 10%-WATER - 1,000 ML IV SCH (20:45)
[2022-06-05 00:07] LABS: EPI CELLS 17 /uL (0-25.1); HYALINE CASTS 0 /uL (0-3.1); URINE APPEARANCE TURBID; URINE BACTERIA 67 /uL (0-1359); URINE BILIRUBIN NEGATIVE (NEGATIVE); URINE COLOR YELLOW; URINE GLUCOSE (UA) NEGATIVE (NEGATIVE); URINE KETONE NEGATIVE (NEGATIVE); URINE LEUK ESTERASE TRACE (NEGATIVE); URINE NITRITE NEGATIVE (NEGATIVE); URINE PROTEIN NEGATIVE (NEGATIVE); URINE RBC 12 /uL (0-23.9); URINE UROBILINOGEN 0.2 mg/dL (0.2-1.0); URINE WBC 10 /uL (0-25.8)
[2022-06-05] MEDS: PRAMIPEXOLE DIHYDROCHLORIDE 0.25 MG TABLET PO SCH ×3 (06:50→21:40)
[2022-06-05] MEDS ORDERED: LEVOTHYROXINE NA 75 MCG TABLET (FP) PO SCH (07:00)
[2022-06-05] MEDS ORDERED: HYDROCHLOROTHIAZIDE 25 MG TABLET (FP) PO SCH (10:00)
[2022-06-05] MEDS ORDERED: metoPROLOL SUCCINATE 25 MG TAB.SR.24H (FP) PO SCH (10:00)
[2022-06-05] MEDS ORDERED: ALLOPURINOL 100 MG TABLET (FP) PO SCH (10:00)
[2022-06-05] MEDS ORDERED: FAMOTIDINE 20 MG TABLET PO SCH (10:00)
[2022-06-05] MEDS ORDERED: hydrOXYzine HCL 10 MG/5 ML LIQUID BULK BOTTLE PO PRN ×2 (11:46→17:54)
[2022-06-05 12:38] LABS: HEMATOCRIT 25.8 % (32.4-45.2); HEMOGLOBIN 8.6 GM/dL (10.7-15.3); MCH 29.6 pg (25.7-33.7); MCHC 33.4 g/dl (32.0-36.0); MEAN CELL VOLUME 88.5 fl (80-96); MEAN PLT VOLUME 8.2 fl (7.5-11.1); PLATELET COUNT 140 10^3/uL (134-434); RBC 2.91 M/mm3 (3.60-5.2); RDW 15.3 % (11.6-15.6); WHITE BLOOD COUNT 3.5 K/mm3 (4.0-10.0)
[2022-06-05 12:59] LABS: BLOOD UREA NITROGEN 20.3 mg/dL (7-18)
[2022-06-05 13:02] LABS: CREATININE 1.3 mg/dL (0.55-1.3)
[2022-06-05] MEDS ORDERED: DEXTROSE 10%-WATER - 1,000 ML IV SCH (17:54)
[2022-06-05] MEDS: ALLOPURINOL 100 MG TABLET (FP) PO SCH (21:40)
[2022-06-06] MEDS ORDERED: ACETAMINOPHEN 500 MG TABLET (FP) PO ONE (03:51)
[2022-06-06] MEDS: PRAMIPEXOLE DIHYDROCHLORIDE 0.25 MG TABLET PO SCH ×3 (05:28→21:53)
[2022-06-06] MEDS: LEVOTHYROXINE NA 75 MCG TABLET (FP) PO SCH (06:02)
[2022-06-06] MEDS ORDERED: HYDROCHLOROTHIAZIDE 25 MG TABLET (FP) PO SCH (10:00)
[2022-06-06 11:47] LABS: MCH 29.9 pg (25.7-33.7); MCHC 33.5 g/dl (32.0-36.0); MEAN CELL VOLUME 89.4 fl (80-96); MEAN PLT VOLUME 8.7 fl (7.5-11.1); PLATELET COUNT 120 10^3/uL (134-434); RBC 2.68 M/mm3 (3.60-5.2); RDW 15.4 % (11.6-15.6); WHITE BLOOD COUNT 3.2 K/mm3 (4.0-10.0)
[2022-06-06 12:09] LABS: ALBUMIN 2.2 g/dl (3.4-5.0); BLOOD UREA NITROGEN 21.3 mg/dL (7-18); CALCIUM 9.7 mg/dL (8.5-10.1)
[2022-06-06 12:12] LABS: CREATININE 1.4 mg/dL (0.55-1.3)
[2022-06-06 12:14] LABS: BILIRUBIN,TOTAL 0.5 mg/dL (0.2-1); TOT PROT 5.1 g/dl (6.4-8.2)
[2022-06-06] MEDS ORDERED: SODIUM CHLORIDE 250 ML IV STA (12:28)
[2022-06-06] MEDS: ALLOPURINOL 100 MG TABLET (FP) PO SCH ×2 (13:34→21:53)
[2022-06-06] MEDS: FAMOTIDINE 20 MG TABLET PO SCH (13:34)
[2022-06-06] MEDS: D5-1/2NS+20 MEQ KCL - 20 MEQ/1,000 ML INFUS.BAG IV SCH (16:26)
[2022-06-06 17:27] LABS: EPI CELLS 10 /uL (0-25.1); HYALINE CASTS 6 /uL (0-3.1); PH,URINE 6.5 (5.0-8.0); URINE APPEARANCE TURBID; URINE BACTERIA 767 /uL (0-1359); URINE BILIRUBIN NEGATIVE (NEGATIVE); URINE COLOR YELLOW; URINE GLUCOSE (UA) 2+ (NEGATIVE); URINE KETONE NEGATIVE (NEGATIVE); URINE LEUK ESTERASE 3+ (NEGATIVE); URINE NITRITE NEGATIVE (NEGATIVE); URINE PROTEIN TRACE (NEGATIVE); URINE RBC 17 /uL (0-23.9); URINE UROBILINOGEN 0.2 mg/dL (0.2-1.0); URINE WBC 738 /uL (0-25.8)
[2022-06-07] MEDS: LEVOTHYROXINE NA 75 MCG TABLET (FP) PO SCH (06:07)
[2022-06-07] MEDS: PRAMIPEXOLE DIHYDROCHLORIDE 0.25 MG TABLET PO SCH ×3 (06:08→21:23)
[2022-06-07 10:36] LABS: HEMATOCRIT 24.2 % (32.4-45.2); HEMOGLOBIN 8.1 GM/dL (10.7-15.3); MCH 29.5 pg (25.7-33.7); MCHC 33.6 g/dl (32.0-36.0); MEAN PLT VOLUME 8.1 fl (7.5-11.1); PLATELET COUNT 128 10^3/uL (134-434); RBC 2.75 M/mm3 (3.60-5.2); RDW 14.9 % (11.6-15.6); WHITE BLOOD COUNT 3.5 K/mm3 (4.0-10.0)
[2022-06-07] MEDS: FAMOTIDINE 20 MG TABLET PO SCH (10:40)
[2022-06-07] MEDS: ALLOPURINOL 100 MG TABLET (FP) PO SCH ×2 (10:40→21:23)
[2022-06-07] MEDS: D5-1/2NS+20 MEQ KCL - 20 MEQ/1,000 ML INFUS.BAG IV SCH ×2 (10:46→17:30)
[2022-06-07 11:05] LABS: CALCIUM 9.4 mg/dL (8.5-10.1)
[2022-06-07 11:06] LABS: ALBUMIN 2.4 g/dl (3.4-5.0); MAGNESIUM 1.4 mg/dL (1.8-2.4)
[2022-06-07 11:07] LABS: BLOOD UREA NITROGEN 16.3 mg/dL (7-18)
[2022-06-07 11:09] LABS: CREATININE 1.3 mg/dL (0.55-1.3)
[2022-06-07 11:11] LABS: BILIRUBIN,TOTAL 0.5 mg/dL (0.2-1); TOT PROT 5.5 g/dl (6.4-8.2)
[2022-06-07 12:37] LABS: BASO % 0.4 % (0-2.0); EOS % 0.1 % (0-4.5); HEMATOCRIT 24.8 % (32.4-45.2); HEMOGLOBIN 8.3 GM/dL (10.7-15.3); LYMPH % 35.2 % (8-40); MCH 29.5 pg (25.7-33.7); MCHC 33.4 g/dl (32.0-36.0); MEAN CELL VOLUME 88.3 fl (80-96); MEAN PLT VOLUME 8.2 fl (7.5-11.1); MONO % 6.6 % (3.8-10.2); NEUT % 57.7 % (42.8-82.8); PLATELET COUNT 130 10^3/uL (134-434); RBC 2.81 M/mm3 (3.60-5.2); RDW 15.3 % (11.6-15.6); WHITE BLOOD COUNT 3.9 K/mm3 (4.0-10.0)
[2022-06-07] MEDS ORDERED: PORTA CATH FLUSH 10 ML IVPUSH PRN (17:34)
[2022-06-08] MEDS: LEVOTHYROXINE NA 75 MCG TABLET (FP) PO SCH (06:32)
[2022-06-08] MEDS: ALLOPURINOL 100 MG TABLET (FP) PO SCH ×2 (09:41→21:16)
[2022-06-08] MEDS: PRAMIPEXOLE DIHYDROCHLORIDE 0.25 MG TABLET PO SCH ×3 (09:41→21:16)
[2022-06-08] MEDS: FAMOTIDINE 20 MG TABLET PO SCH (09:41)
[2022-06-08] MEDS: ACETAMINOPHEN 500 MG TABLET (FP) PO PRN ×2 (09:44→16:25)
[2022-06-08 09:50] LABS: HEMATOCRIT 23.6 % (32.4-45.2); HEMOGLOBIN 7.9 GM/dL (10.7-15.3); MCH 29.4 pg (25.7-33.7); MCHC 33.6 g/dl (32.0-36.0); MEAN CELL VOLUME 87.6 fl (80-96); MEAN PLT VOLUME 7.8 fl (7.5-11.1); PLATELET COUNT 115 10^3/uL (134-434); RBC 2.69 M/mm3 (3.60-5.2); RDW 14.9 % (11.6-15.6)
[2022-06-08 10:12] LABS: ALBUMIN 2.4 g/dl (3.4-5.0); BLOOD UREA NITROGEN 14.5 mg/dL (7-18); CALCIUM 8.7 mg/dL (8.5-10.1)
[2022-06-08 10:15] LABS: URIC ACID 5.5 mg/dL (2.6-7.2)
[2022-06-08 10:17] LABS: BILIRUBIN,TOTAL 0.4 mg/dL (0.2-1)
[2022-06-08 10:18] LABS: TOT PROT 5.6 g/dl (6.4-8.2)
[2022-06-08 12:37] LABS: ANISOCYTOSIS 0; MACROCYTOSIS 0
[2022-06-08] MEDS: D5-1/2NS+20 MEQ KCL - 20 MEQ/1,000 ML INFUS.BAG IV SCH ×2 (14:49→16:25)
[2022-06-08 20:28] VITALS: RESP 18
[2022-06-09] MEDS: D5-1/2NS+20 MEQ KCL - 20 MEQ/1,000 ML INFUS.BAG IV SCH ×2 (03:35→18:22)
[2022-06-09] MEDS: PRAMIPEXOLE DIHYDROCHLORIDE 0.25 MG TABLET PO SCH ×3 (06:36→21:38)
[2022-06-09] MEDS: LEVOTHYROXINE NA 75 MCG TABLET (FP) PO SCH (06:36)
[2022-06-09] MEDS: ALLOPURINOL 100 MG TABLET (FP) PO SCH ×2 (09:42→21:38)
[2022-06-09] MEDS: FAMOTIDINE 20 MG TABLET PO SCH (09:42)
[2022-06-09 12:58] LABS: EPI CELLS 10 /uL (0-25.1); HYALINE CASTS 1 /uL (0-3.1); PH,URINE 5.5 (5.0-8.0); URINE APPEARANCE TURBID; URINE BACTERIA >9,000 /uL (0-1359); URINE BILIRUBIN NEGATIVE (NEGATIVE); URINE COLOR YELLOW; URINE GLUCOSE (UA) TRACE (NEGATIVE); URINE KETONE NEGATIVE (NEGATIVE); URINE LEUK ESTERASE 3+ (NEGATIVE); URINE NITRITE NEGATIVE (NEGATIVE); URINE PROTEIN 1+ (NEGATIVE); URINE RBC 30 /uL (0-23.9); URINE UROBILINOGEN 0.2 mg/dL (0.2-1.0); URINE WBC 1807 /uL (0-25.8)
[2022-06-09] MEDS: ACETAMINOPHEN 500 MG TABLET (FP) PO PRN (14:27)
[2022-06-10] MEDS: LEVOTHYROXINE NA 75 MCG TABLET (FP) PO SCH (06:34)
[2022-06-10] MEDS: PRAMIPEXOLE DIHYDROCHLORIDE 0.25 MG TABLET PO SCH ×2 (06:34→14:56)
[2022-06-10] MEDS: FAMOTIDINE 20 MG TABLET PO SCH (11:07)
[2022-06-10] MEDS: D5-1/2NS+20 MEQ KCL - 20 MEQ/1,000 ML INFUS.BAG IV SCH ×2 (11:07→16:56)
[2022-06-10] MEDS: ALLOPURINOL 100 MG TABLET (FP) PO SCH (11:08)
[2022-06-10 13:26] VITALS: BMI 29.2
[2022-06-10 18:26] VITALS: BP 137/56; PULSE 100; TEMP 97.8
== END 2022-06-10 18:00 | disposition home or self-care (01) | DRG 638 ==
LOC: JER 13:08 → JERBED 16:03 → JICU 20:00 → J5S 06-05 17:45
PROVIDERS: ADMIT Internal Medicine; ATTEND Family Medicine
DX: E11.649 Type 2 diabetes mellitus with hypoglycemia without coma (principal); C90.00 Multiple myeloma not having achieved remission; R71.0 Precipitous drop in hematocrit; E83.52 Hypercalcemia; R74.01 Elevation of levels of liver transaminase levels; I25.10 Atherosclerotic heart disease of native coronary artery without angina pectoris; K21.9 Gastro-esophageal reflux disease without esophagitis; I10 Essential (primary) hypertension; R16.2 Hepatomegaly with splenomegaly, not elsewhere classified; E78.5 Hyperlipidemia, unspecified; E03.9 Hypothyroidism, unspecified; K55.20 Angiodysplasia of colon without hemorrhage; I95.9 Hypotension, unspecified; T38.3X5A Adverse effect of insulin and oral hypoglycemic [antidiabetic] drugs, initial encounter; Y92.89 Other specified places as the place of occurrence of the external cause
CPT/HCPCS: 0241U-QW; 36415; 70450-TC; 71045-TC-FY; 73630-TC-LT; 76700-TC; 80048; 80053; 80076; 81003; 82330; 82550; 82962; 82977; 83036; 83516; 83540; 83550; 83615; 83735; 83970; 84443; 84550; 85025; 85027; 86038; 86704; 86803; 86850; 86900; 86901; 87086; 87186; 87340; 87517; 93005; 93010; 97116-GP; 97161-GP; 99291; J0897

== ENCOUNTER 2022-06-12 08:27 | Day surgery (SDC) | payer OTHER, MEDICARE ==
[2022-06-12] MEDS ORDERED: FUROSEMIDE 40 MG TABLET (FP) PO ONE (11:15)
[2022-06-12 16:16] VITALS: BP 111/41; PULSE 76; RESP 18; TEMP 97.6
[2022-06-12 16:21] LABS: BASO % 0.4 % (0-2.0); HEMATOCRIT 27.5 % (32.4-45.2); HEMOGLOBIN 9.4 GM/dL (10.7-15.3); LYMPH % 31.6 % (8-40); MCH 29.2 pg (25.7-33.7); MCHC 34.2 g/dl (32.0-36.0); MEAN CELL VOLUME 85.4 fl (80-96); MEAN PLT VOLUME 8.1 fl (7.5-11.1); PLATELET COUNT 140 10^3/uL (134-434); RBC 3.22 M/mm3 (3.60-5.2); RDW 14.4 % (11.6-15.6); WHITE BLOOD COUNT 5.1 K/mm3 (4.0-10.0)
[2022-06-12] MEDS ORDERED: PORTA CATH FLUSH 10 ML IVPUSH PRN (16:23)
[2022-06-12 17:54] LABS: ANISOCYTOSIS 2+; MACROCYTOSIS 0; OVALOCYTE 1+
== END 2022-06-12 16:15 | disposition home or self-care (01) ==
LOC: JONCBLOOD 08:27
PROVIDERS: ATTEND Internal Medicine Hematology & Oncology
PROC: 30233H1 Transfusion of Nonautologous Whole Blood into Peripheral Vein, Percutaneous Approach (ICD-10-PCS; principal; 2022-06-12)
DX: K55.21 Angiodysplasia of colon with hemorrhage (principal); C90.00 Multiple myeloma not having achieved remission; E11.9 Type 2 diabetes mellitus without complications
CPT/HCPCS: 36415; 36430; 36511; 85025; 86850; 86900; 86901; 86922; P9016; P9038; P9058

== ENCOUNTER 2022-06-19 16:09 | Inpatient (IN) | payer OTHER, MEDICARE ==
[2022-06-19] MEDS ORDERED: CALCIUM GLUCONATE 10% - 1,000 MG/10 ML VIAL IVPUSH ONE (18:38)
[2022-06-19] MEDS ORDERED: MAGNESIUM SULF 50% (8.12 MEQ/2 ML-1 GM VIAL) IVPB ONE (18:43)
[2022-06-19] MEDS ORDERED: CALCIUM GLUCONATE 10% - 1,000 MG/10 ML VIAL IVPB ONE (19:14)
[2022-06-19 19:57] LABS: HEMATOCRIT 26.4 % (32.4-45.2); HEMOGLOBIN 8.7 GM/dL (10.7-15.3); MCH 28.4 pg (25.7-33.7); MCHC 32.9 g/dl (32.0-36.0); MEAN CELL VOLUME 86.3 fl (80-96); PLATELET COUNT 126 10^3/uL (134-434); RBC 3.06 M/mm3 (3.60-5.2); RDW 14.6 % (11.6-15.6); WHITE BLOOD COUNT 5.5 K/mm3 (4.0-10.0)
[2022-06-19] MEDS ORDERED: MAGNESIUM 1GM/D5W 100ML - 100 ML IVPB IVPB ONE (20:00)
[2022-06-19 20:13] LABS: CHLORIDE 98 mmol/L (98-107); SODIUM 136 mmol/L (136-145)
[2022-06-19 20:15] LABS: ALBUMIN 2.8 g/dl (3.4-5.0); ANION GAP 11 MMOL/L (8-16); CO2 27 mmol/L (21-32); GLUCOSE,RANDOM 209 mg/dL (74-106); MAGNESIUM 1.6 mg/dL (1.8-2.4)
[2022-06-19 20:17] LABS: BLOOD UREA NITROGEN 25.2 mg/dL (7-18)
[2022-06-19 20:18] LABS: PHOSPHOROUS 4.1 mg/dL (2.5-4.9)
[2022-06-19 20:19] LABS: CREATININE 1.4 mg/dL (0.55-1.3); SGOT/AST 89 U/L (15-37); SGPT/ALT 71 U/L (13-61)
[2022-06-19 20:21] LABS: BILIRUBIN,TOTAL 0.8 mg/dL (0.2-1); TOT PROT 6.8 g/dl (6.4-8.2)
[2022-06-19 20:22] LABS: ALK PHOS 265 U/L (45-117)
[2022-06-19 20:24] LABS: CALCIUM 5.1 mg/dL (8.5-10.1)
[2022-06-19] MEDS ORDERED: CALCIUM GLUCONATE 10% - 1,000 MG/10 ML VIAL ONE (21:34)
[2022-06-19 21:36] LABS: ANISOCYTOSIS 2+; MACROCYTOSIS 0
[2022-06-20 02:11] LABS: BLOOD UREA NITROGEN 22.7 mg/dL (7-18); CO2 28 mmol/L (21-32)
[2022-06-20 02:14] LABS: CREATININE 1.4 mg/dL (0.55-1.3)
[2022-06-20 02:26] LABS: ANION GAP 12 MMOL/L (8-16); CALCIUM 5.3 mg/dL (8.5-10.1); CHLORIDE 99 mmol/L (98-107); GLUCOSE,RANDOM 265 mg/dL (74-106); SODIUM 139 mmol/L (136-145)
[2022-06-20 04:03] VITALS: BMI 30.1
[2022-06-20] MEDS ORDERED: CALCIUM GLUCONATE IN NACL 1 GM/50 ML BAG IVPB ONE (05:02)
[2022-06-20 08:32] LABS: HEMATOCRIT 23.4 % (32.4-45.2); HEMOGLOBIN 7.9 GM/dL (10.7-15.3); MCH 28.8 pg (25.7-33.7); MCHC 33.5 g/dl (32.0-36.0); MEAN CELL VOLUME 85.9 fl (80-96); MEAN PLT VOLUME 8.2 fl (7.5-11.1); PLATELET COUNT 125 10^3/uL (134-434); RBC 2.73 M/mm3 (3.60-5.2); RDW 14.8 % (11.6-15.6); WHITE BLOOD COUNT 4.1 K/mm3 (4.0-10.0)
[2022-06-20 08:33] LABS: INR 1.3 (0.83-1.09)
[2022-06-20 08:36] LABS: ACTIVATED PTT 28.8 SECONDS (25.2-36.5)
[2022-06-20 08:46] LABS: CHLORIDE 98 mmol/L (98-107); SODIUM 140 mmol/L (136-145)
[2022-06-20 08:54] LABS: ANION GAP 12 MMOL/L (8-16); BLOOD UREA NITROGEN 21.4 mg/dL (7-18); CO2 29 mmol/L (21-32); GLUCOSE,RANDOM 213 mg/dL (74-106); MAGNESIUM 1.8 mg/dL (1.8-2.4)
[2022-06-20 08:57] LABS: CREATININE 1.2 mg/dL (0.55-1.3)
[2022-06-20 09:06] LABS: CALCIUM 5.6 mg/dL (8.5-10.1)
[2022-06-20 09:39] LABS: ANISOCYTOSIS 0; HELMET CELLS 0; HOWELL-JOLLY BODIES 0; MACROCYTOSIS 0; OVALOCYTE 0; ROULEAU 0; SICKELED CELLS 0; TARGET CELLS 0; TEAR DROP CELLS 0; TOXIC GRANULATION 0
[2022-06-20] MEDS: ALLOPURINOL 100 MG TABLET (FP) PO SCH (09:46)
[2022-06-20] MEDS: FOLIC ACID 1 MG TABLET (FP) PO SCH (09:46)
[2022-06-20] MEDS: MAGNESIUM OXIDE 400 MG TABLET (FP) PO SCH ×2 (09:46→21:15)
[2022-06-20] MEDS: PRAMIPEXOLE DIHYDROCHLORIDE 0.5 MG TABLET PO SCH (09:47)
[2022-06-20] MEDS ORDERED: LIOTHYRONINE SODIUM 5 MCG TABLET PO SCH (10:00)
[2022-06-20] MEDS ORDERED: POTASSIUM CHLORIDE ORAL LIQUID 20 MEQ/15 ML PO ONE ×2 (10:00→12:30)
[2022-06-20] MEDS ORDERED: TORSEMIDE 100 MG TABLET PO SCH (11:00)
[2022-06-20] MEDS: INSULIN SLIDING SCALE (NOVOLOG) 1 VIAL SQ SCH ×3 (12:48→21:31)
[2022-06-20] MEDS: KCL 10 MEQ IVPB 10 MEQ/100 ML INFUS.BAG IVPB SCH ×3 (12:49→17:10)
[2022-06-20] MEDS: HEPARIN NA (PORCINE) 5,000 UNITS/ML 1ML VIAL SQ SCH ×2 (13:04→21:15)
[2022-06-20] MEDS: CALCIUM CARBONATE 650 MG TABLET PO SCH (13:04)
[2022-06-20] MEDS ORDERED: CALCIUM CARBONATE 650 MG TABLET PO SCH (14:00)
[2022-06-20] MEDS: CALCITRIOL 0.25 MCG CAPSULE (FP) PO SCH (15:36)
[2022-06-20] MEDS: TORSEMIDE 20 MG TABLET (FP) PO SCH (15:36)
[2022-06-20] MEDS: CALCIUM GLUCONATE IN NACL 1 GM/50 ML BAG IVPB SCH ×2 (17:10→18:32)
[2022-06-20] MEDS: HYDROCHLOROTHIAZIDE 25 MG TABLET (FP) PO SCH (17:12)
[2022-06-20] MEDS ORDERED: POTASSIUM CHLORIDE TABS 20 MEQ TABLET.ER (FP) PO ONE (19:00)
[2022-06-21] MEDS ORDERED: ERGOCALCIFEROL (VIT D2) 50,000 UNIT (1.25 MG) CAPSULE PO ONE (00:18)
[2022-06-21] MEDS ORDERED: CALCIUM GLUCONATE IN NACL 1 GM/50 ML BAG IVPB SCH ×3 (00:30→13:36)
[2022-06-21] MEDS: CALCIUM CARBONATE 650 MG TABLET PO SCH ×3 (00:59→19:11)
[2022-06-21] MEDS: PRAMIPEXOLE DIHYDROCHLORIDE 0.5 MG TABLET PO SCH ×3 (01:01→21:18)
[2022-06-21] MEDS: ALLOPURINOL 100 MG TABLET (FP) PO SCH ×3 (01:51→21:20)
[2022-06-21] MEDS: CALCIUM GLUCONATE IN NACL 1 GM/50 ML BAG IVPB SCH ×3 (01:51→18:40)
[2022-06-21] MEDS: HEPARIN NA (PORCINE) 5,000 UNITS/ML 1ML VIAL SQ SCH ×3 (05:53→21:17)
[2022-06-21] MEDS: INSULIN SLIDING SCALE (NOVOLOG) 1 VIAL SQ SCH ×4 (06:06→21:20)
[2022-06-21] MEDS: LEVOTHYROXINE NA 150 MCG TABLET PO SCH (06:20)
[2022-06-21] MEDS ORDERED: GLIMEPIRIDE 1 MG TABLET PO SCH (07:00)
[2022-06-21 07:49] LABS: HEMATOCRIT 24.4 % (32.4-45.2); HEMOGLOBIN 8.1 GM/dL (10.7-15.3); MCH 28.5 pg (25.7-33.7); MCHC 33.1 g/dl (32.0-36.0); MEAN CELL VOLUME 86.1 fl (80-96); MEAN PLT VOLUME 7.9 fl (7.5-11.1); PLATELET COUNT 126 10^3/uL (134-434); RBC 2.83 M/mm3 (3.60-5.2); RDW 14.8 % (11.6-15.6); WHITE BLOOD COUNT 3.4 K/mm3 (4.0-10.0)
[2022-06-21 07:56] LABS: CHLORIDE 100 mmol/L (98-107); SODIUM 141 mmol/L (136-145)
[2022-06-21 08:07] LABS: ALBUMIN 2.4 g/dl (3.4-5.0); ANION GAP 10 MMOL/L (8-16); CO2 31 mmol/L (21-32)
[2022-06-21 08:09] LABS: BLOOD UREA NITROGEN 18.4 mg/dL (7-18); GLUCOSE,RANDOM 205 mg/dL (74-106); MAGNESIUM 1.7 mg/dL (1.8-2.4)
[2022-06-21 08:10] LABS: PHOSPHOROUS 6.5 mg/dL (2.5-4.9); SGPT/ALT 78 U/L (13-61)
[2022-06-21 08:11] LABS: SGOT/AST 111 U/L (15-37)
[2022-06-21] MEDS ORDERED: MAGNESIUM 2GM/50ML STERILE WATER IVPB IVPB ONE ×2 (08:11→12:10)
[2022-06-21 08:12] LABS: BILIRUBIN,TOTAL 0.9 mg/dL (0.2-1)
[2022-06-21] MEDS ORDERED: POTASSIUM CHLORIDE TABS 20 MEQ TABLET.ER (FP) PO ONE (08:12)
[2022-06-21 08:14] LABS: CREATININE 1.2 mg/dL (0.55-1.3)
[2022-06-21 08:21] LABS: ALK PHOS 325 U/L (45-117); CALCIUM 6.5 mg/dL (8.5-10.1)
[2022-06-21] MEDS: CALCITRIOL 0.25 MCG CAPSULE (FP) PO SCH (09:44)
[2022-06-21] MEDS: HYDROCHLOROTHIAZIDE 25 MG TABLET (FP) PO SCH (09:45)
[2022-06-21] MEDS: MAGNESIUM OXIDE 400 MG TABLET (FP) PO SCH ×2 (09:45→21:17)
[2022-06-21] MEDS: FOLIC ACID 1 MG TABLET (FP) PO SCH (09:45)
[2022-06-21] MEDS: TORSEMIDE 20 MG TABLET (FP) PO SCH (09:46)
[2022-06-21] MEDS ORDERED: CALCIUM CARBONATE 650 MG TABLET PO SCH (10:00)
[2022-06-22] MEDS: HEPARIN NA (PORCINE) 5,000 UNITS/ML 1ML VIAL SQ SCH ×3 (06:40→21:42)
[2022-06-22] MEDS: CALCIUM CARBONATE 650 MG TABLET PO SCH ×5 (06:40→21:37)
[2022-06-22] MEDS: INSULIN SLIDING SCALE (NOVOLOG) 1 VIAL SQ SCH ×3 (06:43→17:18)
[2022-06-22] MEDS: GLIMEPIRIDE 1 MG TABLET PO SCH (06:43)
[2022-06-22] MEDS: LEVOTHYROXINE NA 150 MCG TABLET PO SCH (06:44)
[2022-06-22 08:29] LABS: BASO % 0.4 % (0-2.0); EOS % 0.1 % (0-4.5); HEMATOCRIT 24.5 % (32.4-45.2); HEMOGLOBIN 8.3 GM/dL (10.7-15.3); LYMPH % 33.4 % (8-40); MCH 29.1 pg (25.7-33.7); MEAN CELL VOLUME 85.6 fl (80-96); MEAN PLT VOLUME 8.2 fl (7.5-11.1); MONO % 7.5 % (3.8-10.2); NEUT % 58.6 % (42.8-82.8); PLATELET COUNT 138 10^3/uL (134-434); RBC 2.86 M/mm3 (3.60-5.2); RDW 14.4 % (11.6-15.6); WHITE BLOOD COUNT 3.6 K/mm3 (4.0-10.0)
[2022-06-22 08:58] LABS: ALBUMIN 2.3 g/dl (3.4-5.0); BLOOD UREA NITROGEN 19.4 mg/dL (7-18); MAGNESIUM 2.2 mg/dL (1.8-2.4)
[2022-06-22 09:00] LABS: CREATININE 1.1 mg/dL (0.55-1.3); PHOSPHOROUS 6.2 mg/dL (2.5-4.9)
[2022-06-22 09:02] LABS: BILIRUBIN,TOTAL 0.8 mg/dL (0.2-1); TOT PROT 5.8 g/dl (6.4-8.2)
[2022-06-22 09:07] LABS: CALCIUM 7.7 mg/dL (8.5-10.1)
[2022-06-22] MEDS: CALCITRIOL 0.25 MCG CAPSULE (FP) PO SCH (11:04)
[2022-06-22] MEDS: ALLOPURINOL 100 MG TABLET (FP) PO SCH ×2 (11:04→21:37)
[2022-06-22] MEDS: HYDROCHLOROTHIAZIDE 25 MG TABLET (FP) PO SCH (11:04)
[2022-06-22] MEDS: PRAMIPEXOLE DIHYDROCHLORIDE 0.5 MG TABLET PO SCH (11:05)
[2022-06-22] MEDS: TORSEMIDE 20 MG TABLET (FP) PO SCH (11:05)
[2022-06-22] MEDS: MAGNESIUM OXIDE 400 MG TABLET (FP) PO SCH ×2 (11:05→21:41)
[2022-06-22] MEDS: FOLIC ACID 1 MG TABLET (FP) PO SCH (11:06)
[2022-06-22] MEDS: POTASSIUM CHLORIDE TABS 20 MEQ TABLET.ER (FP) PO SCH ×2 (13:47→21:36)
[2022-06-22] MEDS ORDERED: ACETAMINOPHEN 325 MG TABLET (FP) PO PRN (18:04)
[2022-06-22] MEDS: PRAMIPEXOLE DIHYDROCHLORIDE PO SCH (23:01)
[2022-06-23] MEDS: HEPARIN NA (PORCINE) 5,000 UNITS/ML 1ML VIAL SQ SCH ×3 (06:38→21:36)
[2022-06-23] MEDS: INSULIN SLIDING SCALE (NOVOLOG) 1 VIAL SQ SCH ×5 (06:38→21:49)
[2022-06-23] MEDS: LEVOTHYROXINE NA 150 MCG TABLET PO SCH (06:40)
[2022-06-23] MEDS: GLIMEPIRIDE 1 MG TABLET PO SCH (07:05)
[2022-06-23] MEDS: FOLIC ACID 1 MG TABLET (FP) PO SCH (09:10)
[2022-06-23] MEDS: ALLOPURINOL 100 MG TABLET (FP) PO SCH ×2 (09:10→21:47)
[2022-06-23] MEDS: CALCIUM CARBONATE 650 MG TABLET PO SCH ×4 (09:10→21:36)
[2022-06-23] MEDS: POTASSIUM CHLORIDE TABS 20 MEQ TABLET.ER (FP) PO SCH ×2 (09:10→21:36)
[2022-06-23] MEDS: HYDROCHLOROTHIAZIDE 25 MG TABLET (FP) PO SCH (09:11)
[2022-06-23] MEDS: TORSEMIDE 20 MG TABLET (FP) PO SCH (09:11)
[2022-06-23] MEDS: PRAMIPEXOLE DIHYDROCHLORIDE 0.25 MG TABLET PO SCH (09:12)
[2022-06-23] MEDS: MAGNESIUM OXIDE 400 MG TABLET (FP) PO SCH ×2 (09:14→21:37)
[2022-06-23] MEDS: PRAMIPEXOLE DIHYDROCHLORIDE PO SCH (21:37)
[2022-06-24] MEDS: INSULIN SLIDING SCALE (NOVOLOG) 1 VIAL SQ SCH ×4 (06:06→21:45)
[2022-06-24] MEDS: HEPARIN NA (PORCINE) 5,000 UNITS/ML 1ML VIAL SQ SCH ×3 (06:06→21:44)
[2022-06-24] MEDS: LEVOTHYROXINE NA 150 MCG TABLET PO SCH (06:07)
[2022-06-24 08:11] LABS: BASO % 0.4 % (0-2.0); EOS % 0.1 % (0-4.5); HEMATOCRIT 26.8 % (32.4-45.2); HEMOGLOBIN 8.9 GM/dL (10.7-15.3); LYMPH % 44.1 % (8-40); MCH 28.7 pg (25.7-33.7); MCHC 33.3 g/dl (32.0-36.0); MEAN CELL VOLUME 86.3 fl (80-96); MEAN PLT VOLUME 8.5 fl (7.5-11.1); MONO % 5.9 % (3.8-10.2); NEUT % 49.5 % (42.8-82.8); PLATELET COUNT 181 10^3/uL (134-434); RDW 14.5 % (11.6-15.6); WHITE BLOOD COUNT 5.6 K/mm3 (4.0-10.0)
[2022-06-24 08:41] LABS: BLOOD UREA NITROGEN 27.9 mg/dL (7-18); CALCIUM 8.8 mg/dL (8.5-10.1)
[2022-06-24 08:44] LABS: CREATININE 1.4 mg/dL (0.55-1.3)
[2022-06-24 08:46] LABS: BILIRUBIN,TOTAL 0.8 mg/dL (0.2-1); TOT PROT 6.8 g/dl (6.4-8.2)
[2022-06-24 08:51] LABS: ALBUMIN 2.8 g/dl (3.4-5.0)
[2022-06-24] MEDS: ALLOPURINOL 100 MG TABLET (FP) PO SCH ×2 (09:54→21:42)
[2022-06-24] MEDS: TORSEMIDE 20 MG TABLET (FP) PO SCH (09:54)
[2022-06-24] MEDS: FOLIC ACID 1 MG TABLET (FP) PO SCH (09:54)
[2022-06-24] MEDS: POTASSIUM CHLORIDE TABS 20 MEQ TABLET.ER (FP) PO SCH ×2 (09:54→21:41)
[2022-06-24] MEDS: PRAMIPEXOLE DIHYDROCHLORIDE 0.25 MG TABLET PO SCH (09:54)
[2022-06-24] MEDS: HYDROCHLOROTHIAZIDE 25 MG TABLET (FP) PO SCH (09:54)
[2022-06-24] MEDS: GLIMEPIRIDE 1 MG TABLET PO SCH (09:55)
[2022-06-24] MEDS: MAGNESIUM OXIDE 400 MG TABLET (FP) PO SCH ×2 (09:55→21:41)
[2022-06-24] MEDS: CALCIUM CARBONATE 650 MG TABLET PO SCH ×4 (09:56→21:46)
[2022-06-24 14:38] LABS: EPI CELLS 4 /uL (0-25.1); HYALINE CASTS 0 /uL (0-3.1); URINE APPEARANCE CLEAR; URINE BACTERIA 137 /uL (0-1359); URINE BILIRUBIN NEGATIVE (NEGATIVE); URINE COLOR YELLOW; URINE GLUCOSE (UA) NEGATIVE (NEGATIVE); URINE KETONE NEGATIVE (NEGATIVE); URINE LEUK ESTERASE TRACE (NEGATIVE); URINE NITRITE NEGATIVE (NEGATIVE); URINE PROTEIN NEGATIVE (NEGATIVE); URINE RBC 13 /uL (0-23.9); URINE UROBILINOGEN 0.2 mg/dL (0.2-1.0); URINE WBC 46 /uL (0-25.8)
[2022-06-24] MEDS: PRAMIPEXOLE DIHYDROCHLORIDE PO SCH (21:43)
[2022-06-25] MEDS: HEPARIN NA (PORCINE) 5,000 UNITS/ML 1ML VIAL SQ SCH ×3 (06:01→21:21)
[2022-06-25] MEDS: LEVOTHYROXINE NA 150 MCG TABLET PO SCH (06:03)
[2022-06-25] MEDS: GLIMEPIRIDE 1 MG TABLET PO SCH (06:04)
[2022-06-25] MEDS: INSULIN SLIDING SCALE (NOVOLOG) 1 VIAL SQ SCH ×3 (06:11→17:09)
[2022-06-25 07:57] LABS: BASO % 0.4 % (0-2.0); HEMATOCRIT 21.9 % (32.4-45.2); HEMOGLOBIN 7.3 GM/dL (10.7-15.3); LYMPH % 35.9 % (8-40); MCH 28.9 pg (25.7-33.7); MCHC 33.5 g/dl (32.0-36.0); MEAN CELL VOLUME 86.2 fl (80-96); MEAN PLT VOLUME 8.7 fl (7.5-11.1); NEUT % 54.7 % (42.8-82.8); PLATELET COUNT 150 10^3/uL (134-434); RBC 2.54 M/mm3 (3.60-5.2); RDW 14.1 % (11.6-15.6); WHITE BLOOD COUNT 3.8 K/mm3 (4.0-10.0)
[2022-06-25 08:00] LABS: BLOOD UREA NITROGEN 30.9 mg/dL (7-18); CALCIUM 8.4 mg/dL (8.5-10.1)
[2022-06-25 08:01] LABS: ALBUMIN 2.5 g/dl (3.4-5.0)
[2022-06-25 08:03] LABS: CREATININE 1.3 mg/dL (0.55-1.3)
[2022-06-25 08:05] LABS: BILIRUBIN,TOTAL 0.5 mg/dL (0.2-1)
[2022-06-25] MEDS: PRAMIPEXOLE DIHYDROCHLORIDE 0.25 MG TABLET PO SCH (09:29)
[2022-06-25] MEDS: TORSEMIDE 20 MG TABLET (FP) PO SCH (09:29)
[2022-06-25] MEDS: POTASSIUM CHLORIDE TABS 20 MEQ TABLET.ER (FP) PO SCH ×2 (09:29→21:21)
[2022-06-25] MEDS: HYDROCHLOROTHIAZIDE 25 MG TABLET (FP) PO SCH (09:29)
[2022-06-25] MEDS: CALCIUM CARBONATE 650 MG TABLET PO SCH ×4 (09:30→21:19)
[2022-06-25] MEDS: ALLOPURINOL 100 MG TABLET (FP) PO SCH ×2 (09:30→21:23)
[2022-06-25] MEDS: FOLIC ACID 1 MG TABLET (FP) PO SCH (09:30)
[2022-06-25] MEDS: MAGNESIUM OXIDE 400 MG TABLET (FP) PO SCH ×2 (09:30→21:20)
[2022-06-25] MEDS ORDERED: POTASSIUM CHLORIDE TABS 20 MEQ TABLET.ER (FP) PO ONE (11:44)
[2022-06-25] MEDS: PRAMIPEXOLE DIHYDROCHLORIDE PO SCH (21:19)
[2022-06-26] MEDS: HEPARIN NA (PORCINE) 5,000 UNITS/ML 1ML VIAL SQ SCH ×3 (05:37→21:55)
[2022-06-26] MEDS: GLIMEPIRIDE 1 MG TABLET PO SCH (06:45)
[2022-06-26] MEDS: LEVOTHYROXINE NA 150 MCG TABLET PO SCH (06:45)
[2022-06-26] MEDS: INSULIN SLIDING SCALE (NOVOLOG) 1 VIAL SQ SCH ×5 (07:04→21:55)
[2022-06-26 08:21] LABS: BASO % 0.2 % (0-2.0); EOS % 0.1 % (0-4.5); HEMATOCRIT 24.6 % (32.4-45.2); HEMOGLOBIN 8.2 GM/dL (10.7-15.3); LYMPH % 40.8 % (8-40); MCH 28.7 pg (25.7-33.7); MCHC 33.4 g/dl (32.0-36.0); MEAN PLT VOLUME 8.2 fl (7.5-11.1); MONO % 7.5 % (3.8-10.2); NEUT % 51.4 % (42.8-82.8); PLATELET COUNT 177 10^3/uL (134-434); RBC 2.86 M/mm3 (3.60-5.2); RDW 14.1 % (11.6-15.6); WHITE BLOOD COUNT 5.5 K/mm3 (4.0-10.0)
[2022-06-26 08:35] LABS: INR 1.15 (0.83-1.09); PROTHROMBIN TIME (PATIENT) 13.3 SEC (9.7-13.0)
[2022-06-26 08:45] LABS: CREATININE 1.4 mg/dL (0.55-1.3)
[2022-06-26 08:46] LABS: BLOOD UREA NITROGEN 30.7 mg/dL (7-18)
[2022-06-26 08:47] LABS: BILIRUBIN,TOTAL 0.7 mg/dL (0.2-1); TOT PROT 7.3 g/dl (6.4-8.2)
[2022-06-26 08:48] LABS: CALCIUM 9.6 mg/dL (8.5-10.1)
[2022-06-26 08:50] LABS: BILIRUBIN,DIRECT 0.3 mg/dL (0.0-0.2)
[2022-06-26] MEDS: ALLOPURINOL 100 MG TABLET (FP) PO SCH ×2 (09:28→21:54)
[2022-06-26] MEDS: CALCIUM CARBONATE 650 MG TABLET PO SCH ×4 (09:28→22:08)
[2022-06-26] MEDS: PRAMIPEXOLE DIHYDROCHLORIDE 0.25 MG TABLET PO SCH (09:29)
[2022-06-26] MEDS: POTASSIUM CHLORIDE TABS 20 MEQ TABLET.ER (FP) PO SCH ×2 (09:29→21:54)
[2022-06-26] MEDS: MAGNESIUM OXIDE 400 MG TABLET (FP) PO SCH ×2 (09:29→21:54)
[2022-06-26] MEDS: HYDROCHLOROTHIAZIDE 25 MG TABLET (FP) PO SCH (09:30)
[2022-06-26] MEDS: TORSEMIDE 20 MG TABLET (FP) PO SCH (09:30)
[2022-06-26] MEDS: FOLIC ACID 1 MG TABLET (FP) PO SCH (09:30)
[2022-06-26 11:25] LABS: RETICULOCYTES 0.68 % (0.5-1.5)
[2022-06-26] MEDS ORDERED: DEXTROSE 50%-WATER - 25 GM/50 ML VIAL IVPUSH ONE (18:10)
[2022-06-26] MEDS ORDERED: DEXTROSE 50%-WATER 25 GM/50 ML DISP.SYRIN IVPUSH ONE (18:45)
[2022-06-26] MEDS: PRAMIPEXOLE DIHYDROCHLORIDE PO SCH (22:08)
[2022-06-27] MEDS: HEPARIN NA (PORCINE) 5,000 UNITS/ML 1ML VIAL SQ SCH (05:57)
[2022-06-27] MEDS: INSULIN SLIDING SCALE (NOVOLOG) 1 VIAL SQ SCH ×4 (06:07→22:00)
[2022-06-27] MEDS: LEVOTHYROXINE NA 150 MCG TABLET PO SCH (07:00)
[2022-06-27] MEDS: GLIMEPIRIDE 1 MG TABLET PO SCH (07:15)
[2022-06-27] MEDS: HYDROCHLOROTHIAZIDE 25 MG TABLET (FP) PO SCH (10:58)
[2022-06-27] MEDS: POTASSIUM CHLORIDE TABS 20 MEQ TABLET.ER (FP) PO SCH ×2 (10:58→22:09)
[2022-06-27] MEDS: MAGNESIUM OXIDE 400 MG TABLET (FP) PO SCH ×2 (10:59→22:09)
[2022-06-27] MEDS: FOLIC ACID 1 MG TABLET (FP) PO SCH (10:59)
[2022-06-27] MEDS: ALLOPURINOL 100 MG TABLET (FP) PO SCH ×2 (10:59→22:09)
[2022-06-27] MEDS: PRAMIPEXOLE DIHYDROCHLORIDE 0.25 MG TABLET PO SCH (11:00)
[2022-06-27 11:49] LABS: BASO % 0.3 % (0-2.0); EOS % 0.1 % (0-4.5); HEMOGLOBIN 7.5 GM/dL (10.7-15.3); LYMPH % 33.3 % (8-40); MCH 29.2 pg (25.7-33.7); MCHC 34.3 g/dl (32.0-36.0); MEAN CELL VOLUME 85.1 fl (80-96); MEAN PLT VOLUME 7.9 fl (7.5-11.1); MONO % 8.2 % (3.8-10.2); NEUT % 58.1 % (42.8-82.8); PLATELET COUNT 156 10^3/uL (134-434); RBC 2.59 M/mm3 (3.60-5.2); RDW 14.3 % (11.6-15.6); WHITE BLOOD COUNT 3.3 K/mm3 (4.0-10.0)
[2022-06-27] MEDS: CALCIUM CARBONATE 650 MG TABLET PO SCH ×4 (12:00→22:08)
[2022-06-27 12:16] LABS: ALBUMIN 2.7 g/dl (3.4-5.0); BLOOD UREA NITROGEN 32.7 mg/dL (7-18)
[2022-06-27 12:19] LABS: CREATININE 1.5 mg/dL (0.55-1.3)
[2022-06-27 12:20] LABS: BILIRUBIN,TOTAL 0.5 mg/dL (0.2-1); TOT PROT 6.6 g/dl (6.4-8.2)
[2022-06-27 20:07] LABS: GLIADIN ANTIBODY IGA 9 units (0-19); GLIADIN ANTIBODY IGG 3 units (0-19); TRANSGLUTAMINASE IGG < 2 U/mL (0-5)
[2022-06-27] MEDS: PRAMIPEXOLE DIHYDROCHLORIDE PO SCH (22:10)
[2022-06-28] MEDS: INSULIN SLIDING SCALE (NOVOLOG) 1 VIAL SQ SCH ×2 (06:28→13:31)
[2022-06-28] MEDS: LEVOTHYROXINE NA 150 MCG TABLET PO SCH (06:29)
[2022-06-28] MEDS: GLIMEPIRIDE 1 MG TABLET PO SCH (06:29)
[2022-06-28 07:58] LABS: HEMATOCRIT 22.4 % (32.4-45.2); HEMOGLOBIN 7.6 GM/dL (10.7-15.3); MCH 29.1 pg (25.7-33.7); MEAN CELL VOLUME 85.6 fl (80-96); MEAN PLT VOLUME 8.2 fl (7.5-11.1); PLATELET COUNT 169 10^3/uL (134-434); RBC 2.62 M/mm3 (3.60-5.2); RDW 13.8 % (11.6-15.6); WHITE BLOOD COUNT 3.5 K/mm3 (4.0-10.0)
[2022-06-28 08:29] LABS: CALCIUM 8.8 mg/dL (8.5-10.1)
[2022-06-28 08:30] LABS: ALBUMIN 2.7 g/dl (3.4-5.0); BLOOD UREA NITROGEN 26.7 mg/dL (7-18)
[2022-06-28 08:32] LABS: CREATININE 1.2 mg/dL (0.55-1.3)
[2022-06-28 08:33] LABS: TOT PROT 6.4 g/dl (6.4-8.2)
[2022-06-28 08:39] LABS: BILIRUBIN,TOTAL 0.6 mg/dL (0.2-1)
[2022-06-28] MEDS: MAGNESIUM OXIDE 400 MG TABLET (FP) PO SCH (09:48)
[2022-06-28] MEDS: FOLIC ACID 1 MG TABLET (FP) PO SCH (09:48)
[2022-06-28] MEDS: POTASSIUM CHLORIDE TABS 20 MEQ TABLET.ER (FP) PO SCH (09:49)
[2022-06-28] MEDS: CALCIUM CARBONATE 650 MG TABLET PO SCH ×2 (09:49→14:28)
[2022-06-28] MEDS: PRAMIPEXOLE DIHYDROCHLORIDE 0.25 MG TABLET PO SCH (09:50)
[2022-06-28] MEDS: ALLOPURINOL 100 MG TABLET (FP) PO SCH (09:51)
[2022-06-28] MEDS: HYDROCHLOROTHIAZIDE 25 MG TABLET (FP) PO SCH (10:00)
[2022-06-28] MEDS ORDERED: TORSEMIDE 20 MG TABLET (FP) PO SCH (10:00)
[2022-06-28 13:57] VITALS: BP 91/48; PULSE 94; RESP 16; TEMP 98.1
[2022-06-28 17:07] LABS: MITOCHONDRIAL AB <20.0 Units (0.0-20.0)
[2022-07-02 13:07] LABS: ALBUMIN % 51.3 % (.); ALPHA-1 FOR UPE 5.3 % (.); TOTAL PROTEIN, URINE 10.4 mg/dL (Not Estab.)
== END 2022-06-28 16:02 | disposition home health service (06) | DRG 640 ==
LOC: JER 16:09 → JERBED 19:39 → J4W 23:52
PROVIDERS: ADMIT Internal Medicine; ATTEND Family Medicine
DX: E83.51 Hypocalcemia (principal); K55.21 Angiodysplasia of colon with hemorrhage; C90.00 Multiple myeloma not having achieved remission; N39.0 Urinary tract infection, site not specified; D64.9 Anemia, unspecified; I25.10 Atherosclerotic heart disease of native coronary artery without angina pectoris; K21.9 Gastro-esophageal reflux disease without esophagitis; E78.5 Hyperlipidemia, unspecified; E03.9 Hypothyroidism, unspecified; K76.0 Fatty (change of) liver, not elsewhere classified; R16.2 Hepatomegaly with splenomegaly, not elsewhere classified; G25.81 Restless legs syndrome; K57.90 Diverticulosis of intestine, part unspecified, without perforation or abscess without bleeding; F41.9 Anxiety disorder, unspecified; H40.9 Unspecified glaucoma; E87.6 Hypokalemia; I12.9 Hypertensive chronic kidney disease with stage 1 through stage 4 chronic kidney disease, or unspecified chronic kidney disease; N18.9 Chronic kidney disease, unspecified; D47.2 Monoclonal gammopathy; D63.0 Anemia in neoplastic disease; R79.89 Other specified abnormal findings of blood chemistry; E83.111 Hemochromatosis due to repeated red blood cell transfusions; Z88.0 Allergy status to penicillin; D72.819 Decreased white blood cell count, unspecified
CPT/HCPCS: 36415; 74176-TC; 76705-TC; 80048; 80053; 80076; 81003; 82105; 82330; 82390; 82728; 82784; 82962; 83516; 83540; 83550; 83615; 83735; 84100; 84156; 84166; 84443; 84550; 85025; 85027; 85045; 85610; 85730; 87086; 93005; 93010; 99285-25; C9803-CS; J1644; U0003; U0005

== ENCOUNTER 2022-07-05 09:25 | Day surgery (SDC) | payer OTHER, MEDICARE ==
[2022-07-05] MEDS ORDERED: FUROSEMIDE 40 MG TABLET (FP) PO ONE ×2 (10:00→13:45)
[2022-07-05 13:08] VITALS: RESP 20
[2022-07-05 18:31] VITALS: BP 91/42; PULSE 70; TEMP 97.7
[2022-07-05 18:44] LABS: BASO % 0.3 % (0-2.0); EOS % 0.1 % (0-4.5); LYMPH % 28.3 % (8-40); MCH 29.4 pg (25.7-33.7); MCHC 34.8 g/dl (32.0-36.0); MEAN CELL VOLUME 84.4 fl (80-96); MEAN PLT VOLUME 7.5 fl (7.5-11.1); MONO % 8.1 % (3.8-10.2); NEUT % 63.2 % (42.8-82.8); PLATELET COUNT 140 10^3/uL (134-434); RBC 2.72 M/mm3 (3.60-5.2); RDW 14.2 % (11.6-15.6); WHITE BLOOD COUNT 3.6 K/mm3 (4.0-10.0)
[2022-07-05 19:51] LABS: ANISOCYTOSIS 2+; MACROCYTOSIS 0; TARGET CELLS 1+
== END 2022-07-05 19:00 | disposition home or self-care (01) ==
LOC: JONCBLOOD 09:25
PROVIDERS: ATTEND Internal Medicine Hematology & Oncology
PROC: 30233H1 Transfusion of Nonautologous Whole Blood into Peripheral Vein, Percutaneous Approach (ICD-10-PCS; principal; 2022-07-05)
DX: K55.21 Angiodysplasia of colon with hemorrhage (principal)
CPT/HCPCS: 36415; 36430; 85025; 86850; 86900; 86901; 86922; P9058

== ENCOUNTER 2022-07-18 08:18 | Day surgery (SDC) | payer OTHER, MEDICARE ==
[2022-07-18 08:50] LABS: BASO % 0.3 % (0-2.0); EOS % 0.1 % (0-4.5); HEMATOCRIT 20.8 % (32.4-45.2); HEMOGLOBIN 7.1 GM/dL (10.7-15.3); LYMPH % 38.6 % (8-40); MCH 29.2 pg (25.7-33.7); MEAN CELL VOLUME 85.8 fl (80-96); MEAN PLT VOLUME 8.3 fl (7.5-11.1); MONO % 5.9 % (3.8-10.2); NEUT % 55.1 % (42.8-82.8); PLATELET COUNT 150 10^3/uL (134-434); RBC 2.43 M/mm3 (3.60-5.2); RDW 14.1 % (11.6-15.6)
[2022-07-18] MEDS ORDERED: FUROSEMIDE 40 MG TABLET (FP) PO ONE (11:00)
[2022-07-18] MEDS ORDERED: PORTA CATH FLUSH 10 ML IVPUSH PRN (16:42)
[2022-07-18 18:27] VITALS: PULSE 72
[2022-07-18 18:28] VITALS: BP 98/46; RESP 20; TEMP 97.8
[2022-07-18 20:02] LABS: HEMOGLOBIN 8.6 GM/dL (10.7-15.3); MCH 29.8 pg (25.7-33.7); MCHC 34.3 g/dl (32.0-36.0); MEAN CELL VOLUME 86.8 fl (80-96); MEAN PLT VOLUME 8.4 fl (7.5-11.1); PLATELET COUNT 126 10^3/uL (134-434); RBC 2.88 M/mm3 (3.60-5.2); RDW 14.4 % (11.6-15.6); WHITE BLOOD COUNT 3.8 K/mm3 (4.0-10.0)
== END 2022-07-18 18:15 | disposition home or self-care (01) ==
LOC: JONCBLOOD 08:18
PROVIDERS: ATTEND Internal Medicine Hematology & Oncology
PROC: 30233H1 Transfusion of Nonautologous Whole Blood into Peripheral Vein, Percutaneous Approach (ICD-10-PCS; principal; 2022-07-18)
DX: K55.21 Angiodysplasia of colon with hemorrhage (principal)
CPT/HCPCS: 36415; 36430; 85025; 85027; 86850; 86900; 86901; 86922; P9058

== ENCOUNTER 2022-07-24 09:18 | Day surgery (SDC) | payer OTHER, MEDICARE ==
[2022-07-24] MEDS ORDERED: [UNRECOGNIZED DRUG - OTHER] IM ONE (09:45)
[2022-07-24] MEDS ORDERED: OCTREOTIDE ACETATE,MI-SPHERES (SANDOSTATIN LAR) 30 MG VIAL IM ONE (09:45)
[2022-07-24 15:23] VITALS: BP 112/50; PULSE 86; RESP 18; TEMP 98.2
== END 2022-07-24 10:45 | disposition home or self-care (01) ==
LOC: JONCNONCHE 09:18
PROVIDERS: ATTEND Internal Medicine Hematology & Oncology
PROC: 3E013GC Introduction of Other Therapeutic Substance into Subcutaneous Tissue, Percutaneous Approach (ICD-10-PCS; principal; 2022-07-24)
DX: K55.21 Angiodysplasia of colon with hemorrhage (principal); Z76.89 Persons encountering health services in other specified circumstances
CPT/HCPCS: 96372; J0895; J2353

== ENCOUNTER 2022-07-25 12:09 | Day surgery (SDC) | payer OTHER, MEDICARE ==
[2022-07-25] MEDS ORDERED: [UNRECOGNIZED DRUG - OTHER] IM ONE (12:15)
[2022-07-25 16:30] VITALS: BP 120/38; PULSE 79; RESP 20; TEMP 98
== END 2022-07-25 12:50 | disposition home or self-care (01) ==
LOC: JONCNONCHE 12:09
PROVIDERS: ATTEND Internal Medicine Hematology & Oncology
PROC: 3E013GC Introduction of Other Therapeutic Substance into Subcutaneous Tissue, Percutaneous Approach (ICD-10-PCS; principal; 2022-07-25)
DX: E83.111 Hemochromatosis due to repeated red blood cell transfusions (principal); K55.21 Angiodysplasia of colon with hemorrhage
CPT/HCPCS: 96372; J0895

== ENCOUNTER 2022-07-26 09:40 | Day surgery (SDC) | payer OTHER, MEDICARE ==
[2022-07-26] MEDS ORDERED: [UNRECOGNIZED DRUG - OTHER] IM ONE (10:00)
[2022-07-26 15:37] VITALS: BP 111/53; PULSE 95; RESP 20; TEMP 98.5
== END 2022-07-26 10:25 | disposition home or self-care (01) ==
LOC: JONCNONCHE 09:40
PROVIDERS: ATTEND Internal Medicine Hematology & Oncology
PROC: 3E013GC Introduction of Other Therapeutic Substance into Subcutaneous Tissue, Percutaneous Approach (ICD-10-PCS; principal; 2022-07-26)
DX: E83.111 Hemochromatosis due to repeated red blood cell transfusions (principal)
CPT/HCPCS: 96372; J0895

== ENCOUNTER 2022-07-29 09:31 | Day surgery (SDC) | payer OTHER, MEDICARE ==
[2022-07-29] MEDS ORDERED: [UNRECOGNIZED DRUG - OTHER] IM ONE (10:00)
[2022-07-29 13:39] VITALS: BP 113/46; PULSE 83; RESP 18; TEMP 98.3
== END 2022-07-29 11:00 | disposition home or self-care (01) ==
LOC: JONCNONCHE 09:31
PROVIDERS: ATTEND Internal Medicine Hematology & Oncology
PROC: 3E013GC Introduction of Other Therapeutic Substance into Subcutaneous Tissue, Percutaneous Approach (ICD-10-PCS; principal; 2022-07-29)
DX: E83.111 Hemochromatosis due to repeated red blood cell transfusions (principal); K55.21 Angiodysplasia of colon with hemorrhage
CPT/HCPCS: 96372; J0895

== ENCOUNTER 2022-07-30 09:24 | Day surgery (SDC) | payer OTHER, MEDICARE ==
[2022-07-30] MEDS ORDERED: [UNRECOGNIZED DRUG - OTHER] IM ONE (10:00)
[2022-07-30 14:43] VITALS: BP 105/51; PULSE 73; RESP 20; TEMP 98
== END 2022-07-30 09:55 | disposition home or self-care (01) ==
LOC: JONCNONCHE 09:24
PROVIDERS: ATTEND Internal Medicine Hematology & Oncology
PROC: 3E013GC Introduction of Other Therapeutic Substance into Subcutaneous Tissue, Percutaneous Approach (ICD-10-PCS; principal; 2022-07-30)
DX: E83.111 Hemochromatosis due to repeated red blood cell transfusions (principal)
CPT/HCPCS: 96372; J0895

== ENCOUNTER 2022-07-31 09:15 | Day surgery (SDC) | payer OTHER, MEDICARE ==
[~2022-07-31 09:15] MED LIST changes: -FUROSEMIDE 40 MG/4 ML INJECTABLE VIAL IVPUSH ONE; -PORTA CATH FLUSH 10 ML IVPUSH PRN; +[UNRECOGNIZED DRUG - OTHER] IM ONE
[2022-07-31 14:31] VITALS: BP 122/41; PULSE 79; RESP 20; TEMP 97.9
== END 2022-07-31 09:40 | disposition home or self-care (01) ==
LOC: JONCNONCHE 09:15
PROVIDERS: ATTEND Internal Medicine Hematology & Oncology
PROC: 3E013GC Introduction of Other Therapeutic Substance into Subcutaneous Tissue, Percutaneous Approach (ICD-10-PCS; principal; 2022-07-31)
DX: E83.111 Hemochromatosis due to repeated red blood cell transfusions (principal); K55.21 Angiodysplasia of colon with hemorrhage
CPT/HCPCS: 96372; J0895

== ENCOUNTER 2022-08-01 08:26 | Day surgery (SDC) | payer OTHER, MEDICARE ==
[2022-08-01] MEDS ORDERED: [UNRECOGNIZED DRUG - OTHER] IM ONE (08:30)
[2022-08-01 13:20] VITALS: BP 96/35; PULSE 73; RESP 18; TEMP 98.1
== END 2022-08-01 09:30 | disposition home or self-care (01) ==
LOC: JONCNONCHE 08:26
PROVIDERS: ATTEND Internal Medicine Hematology & Oncology
PROC: 3E013GC Introduction of Other Therapeutic Substance into Subcutaneous Tissue, Percutaneous Approach (ICD-10-PCS; principal; 2022-08-01)
DX: E83.111 Hemochromatosis due to repeated red blood cell transfusions (principal); Z76.89 Persons encountering health services in other specified circumstances
CPT/HCPCS: 96372; J0895

== ENCOUNTER 2022-08-02 07:43 | Day surgery (SDC) | payer OTHER, MEDICARE ==
[2022-08-02] MEDS ORDERED: FUROSEMIDE 20 MG TABLET (FP) PO ONE ×2 (10:00→12:45)
[2022-08-02] MEDS ORDERED: [UNRECOGNIZED DRUG - OTHER] IM ONE (10:00)
[2022-08-02 13:03] VITALS: RESP 18
[2022-08-02] MEDS ORDERED: PORTA CATH FLUSH 10 ML IVPUSH PRN (13:03)
[2022-08-02 18:58] VITALS: BP 107/47; PULSE 65; TEMP 97.9
== END 2022-08-02 18:58 | disposition home or self-care (01) ==
LOC: JONCBLOOD 07:43
PROVIDERS: ATTEND Internal Medicine Hematology & Oncology
PROC: 30233H1 Transfusion of Nonautologous Whole Blood into Peripheral Vein, Percutaneous Approach (ICD-10-PCS; principal; 2022-08-02)
DX: K55.21 Angiodysplasia of colon with hemorrhage (principal)
CPT/HCPCS: 36430; 86850; 86900; 86901; 86922; J0895; P9058

== ENCOUNTER 2022-08-05 09:53 | Day surgery (SDC) | payer OTHER, MEDICARE ==
[2022-08-05] MEDS ORDERED: [UNRECOGNIZED DRUG - OTHER] IM ONE (10:00)
[2022-08-05 16:43] VITALS: BP 105/48; PULSE 68; RESP 20; TEMP 98.2
== END 2022-08-05 11:30 | disposition home or self-care (01) ==
LOC: JONCNONCHE 09:53
PROVIDERS: ATTEND Internal Medicine Hematology & Oncology
PROC: 3E013GC Introduction of Other Therapeutic Substance into Subcutaneous Tissue, Percutaneous Approach (ICD-10-PCS; principal; 2022-08-05)
DX: E83.111 Hemochromatosis due to repeated red blood cell transfusions (principal)
CPT/HCPCS: 96372; J0895

== ENCOUNTER 2022-08-06 09:30 | Day surgery (SDC) | payer OTHER, MEDICARE ==
[2022-08-06] MEDS ORDERED: [UNRECOGNIZED DRUG - OTHER] IM ONE (10:00)
[2022-08-06 15:42] VITALS: BP 106/53; PULSE 74; RESP 18; TEMP 98.1
== END 2022-08-06 10:15 | disposition home or self-care (01) ==
LOC: JONCNONCHE 09:30
PROVIDERS: ATTEND Internal Medicine Hematology & Oncology
PROC: 3E013GC Introduction of Other Therapeutic Substance into Subcutaneous Tissue, Percutaneous Approach (ICD-10-PCS; principal; 2022-08-06)
DX: E83.111 Hemochromatosis due to repeated red blood cell transfusions (principal)
CPT/HCPCS: 96372; J0895

== ENCOUNTER 2022-08-07 09:40 | Day surgery (SDC) | payer OTHER, MEDICARE ==
[2022-08-07] MEDS ORDERED: [UNRECOGNIZED DRUG - OTHER] IM ONE (10:00)
[2022-08-07 15:24] VITALS: BP 97/49; PULSE 72; RESP 16; TEMP 98.1
== END 2022-08-07 10:00 | disposition home or self-care (01) ==
LOC: JONCNONCHE 09:40
PROVIDERS: ATTEND Internal Medicine Hematology & Oncology
PROC: 3E013GC Introduction of Other Therapeutic Substance into Subcutaneous Tissue, Percutaneous Approach (ICD-10-PCS; principal; 2022-08-07)
DX: E83.111 Hemochromatosis due to repeated red blood cell transfusions (principal)
CPT/HCPCS: 96372; J0895

== ENCOUNTER 2022-08-08 12:04 | Day surgery (SDC) | payer OTHER, MEDICARE ==
[2022-08-08 16:28] VITALS: BP 109/46; PULSE 71; RESP 18; TEMP 97.9
== END 2022-08-08 12:15 | disposition home or self-care (01) ==
LOC: JONCNONCHE 12:04
PROVIDERS: ATTEND Internal Medicine Hematology & Oncology
PROC: 3E013GC Introduction of Other Therapeutic Substance into Subcutaneous Tissue, Percutaneous Approach (ICD-10-PCS; principal; 2022-08-08)
DX: E83.111 Hemochromatosis due to repeated red blood cell transfusions (principal)
CPT/HCPCS: 96372; J0895

== ENCOUNTER 2022-08-09 10:20 | Day surgery (SDC) | payer OTHER, MEDICARE ==
[2022-08-09 15:07] VITALS: BP 106/49; PULSE 73; RESP 18; TEMP 97.8
== END 2022-08-09 10:30 | disposition home or self-care (01) ==
LOC: JONCNONCHE 10:20
PROVIDERS: ATTEND Internal Medicine Hematology & Oncology
PROC: 3E013GC Introduction of Other Therapeutic Substance into Subcutaneous Tissue, Percutaneous Approach (ICD-10-PCS; principal; 2022-08-09)
DX: E83.111 Hemochromatosis due to repeated red blood cell transfusions (principal)
CPT/HCPCS: 96372; J0895

== ENCOUNTER 2022-08-13 09:09 | Day surgery (SDC) | payer OTHER, MEDICARE ==
[2022-08-13] MEDS ORDERED: [UNRECOGNIZED DRUG - OTHER] IM ONE (10:00)
[2022-08-13 14:38] VITALS: BP 100/43; PULSE 60; RESP 18; TEMP 98.6
== END 2022-08-13 10:00 | disposition home or self-care (01) ==
LOC: JONCNONCHE 09:09
PROVIDERS: ATTEND Internal Medicine Hematology & Oncology
PROC: 3E013GC Introduction of Other Therapeutic Substance into Subcutaneous Tissue, Percutaneous Approach (ICD-10-PCS; principal; 2022-08-13)
DX: E83.111 Hemochromatosis due to repeated red blood cell transfusions (principal)
CPT/HCPCS: 96372; J0895

== ENCOUNTER 2022-08-14 09:17 | Day surgery (SDC) | payer OTHER, MEDICARE ==
[2022-08-14] MEDS ORDERED: [UNRECOGNIZED DRUG - OTHER] IM ONE (10:00)
[2022-08-14 14:28] VITALS: BP 113/37; PULSE 71; RESP 20; TEMP 98.3
== END 2022-08-14 09:35 | disposition home or self-care (01) ==
LOC: JONCNONCHE 09:17
PROVIDERS: ATTEND Internal Medicine Hematology & Oncology
PROC: 3E013GC Introduction of Other Therapeutic Substance into Subcutaneous Tissue, Percutaneous Approach (ICD-10-PCS; principal; 2022-08-14)
DX: E83.111 Hemochromatosis due to repeated red blood cell transfusions (principal)
CPT/HCPCS: 96372; J0895

== ENCOUNTER 2022-08-15 09:09 | Day surgery (SDC) | payer OTHER, MEDICARE ==
[2022-08-15] MEDS ORDERED: [UNRECOGNIZED DRUG - OTHER] IM ONE (10:00)
[2022-08-15 13:30] VITALS: BP 107/50; PULSE 72; RESP 18; TEMP 98.2
== END 2022-08-15 10:00 | disposition home or self-care (01) ==
LOC: JONCNONCHE 09:09
PROVIDERS: ATTEND Internal Medicine Hematology & Oncology
PROC: 3E013GC Introduction of Other Therapeutic Substance into Subcutaneous Tissue, Percutaneous Approach (ICD-10-PCS; principal; 2022-08-15)
DX: E83.111 Hemochromatosis due to repeated red blood cell transfusions (principal)
CPT/HCPCS: 96372; J0895

== ENCOUNTER 2022-08-16 08:00 | Day surgery (SDC) | payer OTHER, MEDICARE ==
[2022-08-16] MEDS ORDERED: FUROSEMIDE 40 MG TABLET (FP) PO ONE ×2 (09:00→10:15)
[2022-08-16] MEDS ORDERED: [UNRECOGNIZED DRUG - OTHER] IM ONE (10:00)
[2022-08-16 15:55] VITALS: BP 107/48; PULSE 68; RESP 18; TEMP 97.6
[2022-08-16] MEDS ORDERED: PORTA CATH FLUSH 10 ML IVPUSH PRN (16:01)
== END 2022-08-16 17:27 | disposition home or self-care (01) ==
LOC: JONCNONCHE 08:00
PROVIDERS: ATTEND Internal Medicine Hematology & Oncology
PROC: 30233H1 Transfusion of Nonautologous Whole Blood into Peripheral Vein, Percutaneous Approach (ICD-10-PCS; principal; 2022-08-16)
DX: K55.21 Angiodysplasia of colon with hemorrhage (principal)
CPT/HCPCS: 36430; 86850; 86900; 86901; 86922; J0895; P9058

== ENCOUNTER 2022-08-20 13:44 | Day surgery (SDC) | payer OTHER, MEDICARE ==
[2022-08-20] MEDS ORDERED: PORTA CATH FLUSH 10 ML IVPUSH PRN (14:00)
[2022-08-20 16:21] LABS: BASO % 0.2 % (0-2.0); EOS % 0.1 % (0-4.5); HEMATOCRIT 27.1 % (32.4-45.2); HEMOGLOBIN 9.4 GM/dL (10.7-15.3); LYMPH % 27.3 % (8-40); MCH 29.4 pg (25.7-33.7); MCHC 34.6 g/dl (32.0-36.0); MEAN CELL VOLUME 84.9 fl (80-96); MONO % 6.6 % (3.8-10.2); NEUT % 65.8 % (42.8-82.8); PLATELET COUNT 144 10^3/uL (134-434); RDW 15.4 % (11.6-15.6); WHITE BLOOD COUNT 5.5 K/mm3 (4.0-10.0)
[2022-08-20 16:45] LABS: CALCIUM 8.2 mg/dL (8.5-10.1)
[2022-08-20 16:46] LABS: BLOOD UREA NITROGEN 32.6 mg/dL (7-18); MAGNESIUM 1.9 mg/dL (1.8-2.4)
[2022-08-20 16:48] LABS: URIC ACID 5.9 mg/dL (2.6-7.2)
[2022-08-20 16:49] LABS: CREATININE 1.2 mg/dL (0.55-1.3)
[2022-08-20 16:50] LABS: BILIRUBIN,TOTAL 0.5 mg/dL (0.2-1); TOT PROT 6.7 g/dl (6.4-8.2)
[2022-08-20 17:01] VITALS: BP 107/56; PULSE 74; RESP 18; TEMP 98
== END 2022-08-20 15:05 | disposition home or self-care (01) ==
LOC: JONCNONCHE 13:44
PROVIDERS: ATTEND Internal Medicine Hematology & Oncology
DX: E83.111 Hemochromatosis due to repeated red blood cell transfusions (principal)
CPT/HCPCS: 36415; 80053; 82728; 83540; 83550; 83615; 83735; 84550; 85025; 93970-TC; 96372; J0895

== ENCOUNTER 2022-08-21 10:30 | Day surgery (SDC) | payer OTHER, MEDICARE ==
[2022-08-21 17:11] VITALS: BP 99/42; PULSE 65; RESP 20; TEMP 97.9
== END 2022-08-21 10:40 | disposition home or self-care (01) ==
LOC: JONCNONCHE 10:30
PROVIDERS: ATTEND Internal Medicine Hematology & Oncology
PROC: 3E013GC Introduction of Other Therapeutic Substance into Subcutaneous Tissue, Percutaneous Approach (ICD-10-PCS; principal; 2022-08-21)
DX: E83.111 Hemochromatosis due to repeated red blood cell transfusions (principal)
CPT/HCPCS: 96372; J0895

== ENCOUNTER 2022-08-22 12:18 | Day surgery (SDC) | payer OTHER, MEDICARE ==
[2022-08-22 16:03] VITALS: BP 120/50; PULSE 81; RESP 19; TEMP 97.7
== END 2022-08-22 12:30 | disposition home or self-care (01) ==
LOC: JONCNONCHE 12:18
PROVIDERS: ATTEND Internal Medicine Hematology & Oncology
PROC: 3E013GC Introduction of Other Therapeutic Substance into Subcutaneous Tissue, Percutaneous Approach (ICD-10-PCS; principal; 2022-08-22)
DX: E83.111 Hemochromatosis due to repeated red blood cell transfusions (principal)
CPT/HCPCS: 96372; J0895

== ENCOUNTER 2022-08-23 09:30 | Day surgery (SDC) | payer OTHER, MEDICARE ==
[2022-08-23] MEDS ORDERED: [UNRECOGNIZED DRUG - OTHER] IM ONE (10:00)
[2022-08-23 17:36] VITALS: BP 110/51; PULSE 72; RESP 18; TEMP 98.6
== END 2022-08-23 10:10 | disposition home or self-care (01) ==
LOC: JONCNONCHE 09:30
PROVIDERS: ATTEND Internal Medicine Hematology & Oncology
PROC: 3E013GC Introduction of Other Therapeutic Substance into Subcutaneous Tissue, Percutaneous Approach (ICD-10-PCS; principal; 2022-08-23)
DX: E83.111 Hemochromatosis due to repeated red blood cell transfusions (principal)
CPT/HCPCS: 96372; J0895

== ENCOUNTER 2022-08-26 10:14 | Day surgery (SDC) | payer OTHER, MEDICARE ==
[2022-08-26 14:13] VITALS: BP 102/43; PULSE 69; RESP 20; TEMP 98.4
== END 2022-08-26 11:00 | disposition home or self-care (01) ==
LOC: JONCNONCHE 10:14
PROVIDERS: ATTEND Internal Medicine Hematology & Oncology
PROC: 3E013GC Introduction of Other Therapeutic Substance into Subcutaneous Tissue, Percutaneous Approach (ICD-10-PCS; principal; 2022-08-26)
DX: E83.111 Hemochromatosis due to repeated red blood cell transfusions (principal); K55.21 Angiodysplasia of colon with hemorrhage
CPT/HCPCS: 96372; J0895

== ENCOUNTER 2022-08-27 10:00 | Day surgery (SDC) | payer OTHER, MEDICARE ==
[~2022-08-27 10:00] MED LIST changes: +OCTREOTIDE ACETATE,MI-SPHERES (SANDOSTATIN LAR) 30 MG VIAL IM ONE
[2022-08-27 18:29] VITALS: BP 105/45; PULSE 98; RESP 20; TEMP 97.3
== END 2022-08-27 15:00 | disposition home or self-care (01) ==
LOC: JONCNONCHE 10:00
PROVIDERS: ATTEND Internal Medicine Hematology & Oncology
PROC: 3E013GC Introduction of Other Therapeutic Substance into Subcutaneous Tissue, Percutaneous Approach (ICD-10-PCS; principal; 2022-08-27)
PROC: 3E013GC Introduction of Other Therapeutic Substance into Subcutaneous Tissue, Percutaneous Approach (ICD-10-PCS; 2022-08-27)
DX: E83.111 Hemochromatosis due to repeated red blood cell transfusions (principal); K55.21 Angiodysplasia of colon with hemorrhage; D47.2 Monoclonal gammopathy; C90.00 Multiple myeloma not having achieved remission
CPT/HCPCS: 96372; J0895; J2353

== ENCOUNTER 2022-08-28 04:43 | Day surgery (SDC) | payer OTHER, MEDICARE ==
[2022-08-23 15:40] VITALS: BMI 30.4
[2022-08-28] MEDS ORDERED: [UNRECOGNIZED DRUG - OTHER] IM ONE (10:00)
[2022-08-28] MEDS ORDERED: MIDAZOLAM HCL 2 MG/2 ML SINGLE DOSE VIAL ONE (12:09)
[2022-08-28] MEDS ORDERED: SODIUM CHLORIDE 500 ML IV ONE (12:10)
[2022-08-28 16:34] VITALS: BP 110/63; PULSE 72; RESP 18
[2022-08-28 16:43] VITALS: TEMP 98.7
== END 2022-08-28 14:50 | disposition home or self-care (01) ==
LOC: JRADIR 04:43
PROVIDERS: ATTEND Internal Medicine Hematology & Oncology
PROC: 07DR3ZX Extraction of Iliac Bone Marrow, Percutaneous Approach, Diagnostic (ICD-10-PCS; principal; 2022-08-28)
DX: C90.00 Multiple myeloma not having achieved remission (principal); E83.111 Hemochromatosis due to repeated red blood cell transfusions
CPT/HCPCS: 20225; 82962; 88300-TC

== ENCOUNTER 2022-08-29 09:10 | Day surgery (SDC) | payer OTHER, MEDICARE ==
[2022-08-29] MEDS ORDERED: [UNRECOGNIZED DRUG - OTHER] IM ONE (10:00)
[2022-08-29 14:19] VITALS: BP 102/53; PULSE 91; RESP 20; TEMP 98.1
== END 2022-08-29 09:35 | disposition home or self-care (01) ==
LOC: JONCNONCHE 09:10
PROVIDERS: ATTEND Internal Medicine Hematology & Oncology
DX: E83.111 Hemochromatosis due to repeated red blood cell transfusions (principal); K55.21 Angiodysplasia of colon with hemorrhage
CPT/HCPCS: 96372; J0895

== ENCOUNTER 2022-08-30 09:50 | Day surgery (SDC) | payer OTHER, MEDICARE ==
[2022-08-30] MEDS ORDERED: [UNRECOGNIZED DRUG - OTHER] IM ONE (10:00)
[2022-08-30 15:52] VITALS: BP 109/54; PULSE 75; RESP 20; TEMP 98.1
== END 2022-08-30 10:30 | disposition home or self-care (01) ==
LOC: JONCNONCHE 09:50
PROVIDERS: ATTEND Internal Medicine Hematology & Oncology
PROC: 3E013GC Introduction of Other Therapeutic Substance into Subcutaneous Tissue, Percutaneous Approach (ICD-10-PCS; principal; 2022-08-30)
DX: E83.111 Hemochromatosis due to repeated red blood cell transfusions (principal); K55.21 Angiodysplasia of colon with hemorrhage
CPT/HCPCS: 96372; J0895

== ENCOUNTER 2022-09-02 09:00 | Day surgery (SDC) | payer OTHER, MEDICARE ==
[~2022-09-02 09:00] MED LIST changes: -OCTREOTIDE ACETATE,MI-SPHERES (SANDOSTATIN LAR) 30 MG VIAL IM ONE
[2022-09-02] MEDS ORDERED: [UNRECOGNIZED DRUG - OTHER] IM ONE (10:00)
[2022-09-02 15:50] VITALS: BP 99/46; PULSE 72; RESP 18; TEMP 98.1
== END 2022-09-02 10:00 | disposition home or self-care (01) ==
LOC: JONCNONCHE 09:00
PROVIDERS: ATTEND Internal Medicine Hematology & Oncology
PROC: 3E013GC Introduction of Other Therapeutic Substance into Subcutaneous Tissue, Percutaneous Approach (ICD-10-PCS; principal; 2022-09-02)
DX: E83.111 Hemochromatosis due to repeated red blood cell transfusions (principal); K55.21 Angiodysplasia of colon with hemorrhage
CPT/HCPCS: 96372; J0895

== ENCOUNTER 2022-09-03 09:00 | Day surgery (SDC) | payer OTHER, MEDICARE ==
[2022-09-03 14:33] VITALS: BP 115/54; PULSE 65; RESP 18; TEMP 98.3
== END 2022-09-03 09:30 | disposition home or self-care (01) ==
LOC: JONCCHEMO 09:00 → JONCNONCHE 09:00 → JONCCHEMO 09:30
PROVIDERS: ATTEND Internal Medicine Hematology & Oncology
PROC: 3E013GC Introduction of Other Therapeutic Substance into Subcutaneous Tissue, Percutaneous Approach (ICD-10-PCS; principal; 2022-09-03)
DX: E83.111 Hemochromatosis due to repeated red blood cell transfusions (principal); K55.21 Angiodysplasia of colon with hemorrhage
CPT/HCPCS: 96372; J0895

== ENCOUNTER 2022-09-04 09:30 | Day surgery (SDC) | payer OTHER, MEDICARE ==
[2022-09-04] MEDS ORDERED: [UNRECOGNIZED DRUG - OTHER] IM ONE (10:00)
[2022-09-04 15:20] VITALS: BP 132/55; PULSE 82; RESP 18; TEMP 97.8
== END 2022-09-04 09:45 | disposition home or self-care (01) ==
LOC: JONCNONCHE 09:30
PROVIDERS: ATTEND Internal Medicine Hematology & Oncology
PROC: 3E013GC Introduction of Other Therapeutic Substance into Subcutaneous Tissue, Percutaneous Approach (ICD-10-PCS; principal; 2022-09-04)
DX: E83.111 Hemochromatosis due to repeated red blood cell transfusions (principal); K55.21 Angiodysplasia of colon with hemorrhage
CPT/HCPCS: 96372; J0895

== ENCOUNTER 2022-09-05 10:00 | Day surgery (SDC) | payer OTHER, MEDICARE ==
[2022-09-05 15:38] VITALS: BP 108/37; PULSE 79; RESP 20
[2022-09-05 15:42] VITALS: TEMP 98
== END 2022-09-05 10:30 | disposition home or self-care (01) ==
LOC: JONCNONCHE 10:00
PROVIDERS: ATTEND Internal Medicine Hematology & Oncology
PROC: 3E013GC Introduction of Other Therapeutic Substance into Subcutaneous Tissue, Percutaneous Approach (ICD-10-PCS; principal; 2022-09-05)
DX: E83.111 Hemochromatosis due to repeated red blood cell transfusions (principal)
CPT/HCPCS: 96372; J0895

== ENCOUNTER → 2022-09-06 | Day surgery (SDC) | payer OTHER, MEDICARE ==
[~2022-09-06] MED LIST changes: +FUROSEMIDE 40 MG TABLET (FP) PO ONE; +PORTA CATH FLUSH 10 ML IVPUSH PRN
[2022-09-06 18:23] VITALS: PULSE 63; RESP 16
[2022-09-06 18:43] VITALS: BP 111/49
[2022-09-06 18:45] VITALS: TEMP 98
[2022-09-06 19:06] LABS: BASO % 0.3 % (0-2.0); EOS % 0.1 % (0-4.5); HEMATOCRIT 24.3 % (32.4-45.2); HEMOGLOBIN 8.3 GM/dL (10.7-15.3); LYMPH % 27.8 % (8-40); MCH 29.4 pg (25.7-33.7); MCHC 34.2 g/dl (32.0-36.0); MEAN CELL VOLUME 85.8 fl (80-96); MEAN PLT VOLUME 7.7 fl (7.5-11.1); MONO % 8.1 % (3.8-10.2); NEUT % 63.7 % (42.8-82.8); PLATELET COUNT 143 10^3/uL (134-434); RBC 2.83 M/mm3 (3.60-5.2); RDW 14.6 % (11.6-15.6); WHITE BLOOD COUNT 4.2 K/mm3 (4.0-10.0)
== END | disposition home or self-care (01) ==
LOC: JONCBLOOD 09:00
PROVIDERS: ATTEND Internal Medicine Hematology & Oncology
PROC: 30233H1 Transfusion of Nonautologous Whole Blood into Peripheral Vein, Percutaneous Approach (ICD-10-PCS; principal; 2022-09-06)
PROC: 3E013GC Introduction of Other Therapeutic Substance into Subcutaneous Tissue, Percutaneous Approach (ICD-10-PCS; 2022-09-06)
DX: K55.21 Angiodysplasia of colon with hemorrhage (principal); E83.111 Hemochromatosis due to repeated red blood cell transfusions
CPT/HCPCS: 36415; 36430; 85025; 86850; 86900; 86901; 86922; 96372; J0895; P9058

== ENCOUNTER 2022-09-09 15:15 | Day surgery (SDC) | payer OTHER, MEDICARE ==
[~2022-09-09 15:15] MED LIST changes: -FUROSEMIDE 40 MG TABLET (FP) PO ONE; -PORTA CATH FLUSH 10 ML IVPUSH PRN
[2022-09-09 18:34] VITALS: BP 108/50; PULSE 20; RESP 67; TEMP 97.9
== END 2022-09-09 18:40 | disposition home or self-care (01) ==
LOC: JONCNONCHE 15:15
PROVIDERS: ATTEND Internal Medicine Hematology & Oncology
PROC: 3E013GC Introduction of Other Therapeutic Substance into Subcutaneous Tissue, Percutaneous Approach (ICD-10-PCS; principal; 2022-09-09)
DX: E83.111 Hemochromatosis due to repeated red blood cell transfusions (principal); K55.21 Angiodysplasia of colon with hemorrhage
CPT/HCPCS: 96372; J0895

== ENCOUNTER 2022-09-10 14:13 | Day surgery (SDC) | payer OTHER, MEDICARE ==
[2022-09-10 15:52] VITALS: BP 107/49; PULSE 71; RESP 20; TEMP 98.2
== END 2022-09-10 15:53 | disposition home or self-care (01) ==
LOC: JONCNONCHE 14:13
PROVIDERS: ATTEND Internal Medicine Hematology & Oncology
DX: E83.111 Hemochromatosis due to repeated red blood cell transfusions (principal)
CPT/HCPCS: 96372; J0895

== ENCOUNTER 2022-09-11 09:55 | Day surgery (SDC) | payer OTHER, MEDICARE ==
[2022-09-11 15:12] VITALS: BP 118/55; PULSE 73; RESP 20; TEMP 97.8
== END 2022-09-11 10:40 | disposition home or self-care (01) ==
LOC: JONCNONCHE 09:55
PROVIDERS: ATTEND Internal Medicine Hematology & Oncology
PROC: 3E013GC Introduction of Other Therapeutic Substance into Subcutaneous Tissue, Percutaneous Approach (ICD-10-PCS; principal; 2022-09-11)
DX: E83.111 Hemochromatosis due to repeated red blood cell transfusions (principal)
CPT/HCPCS: 96372; J0895

== ENCOUNTER 2022-09-12 10:15 | Day surgery (SDC) | payer OTHER, MEDICARE ==
[2022-09-12 14:35] VITALS: BP 111/55; PULSE 80; RESP 19; TEMP 98.1
== END 2022-09-12 11:00 | disposition home or self-care (01) ==
LOC: JONCNONCHE 10:15
PROVIDERS: ATTEND Internal Medicine Hematology & Oncology
PROC: 3E013GC Introduction of Other Therapeutic Substance into Subcutaneous Tissue, Percutaneous Approach (ICD-10-PCS; principal; 2022-09-12)
DX: E83.111 Hemochromatosis due to repeated red blood cell transfusions (principal)
CPT/HCPCS: 96372; J0895

== ENCOUNTER 2022-09-13 10:00 | Day surgery (SDC) | payer OTHER, MEDICARE ==
[2022-09-13 15:13] VITALS: BP 111/59; PULSE 85; RESP 20; TEMP 98.5
== END 2022-09-13 11:15 | disposition home or self-care (01) ==
LOC: JONCNONCHE 10:00
PROVIDERS: ATTEND Internal Medicine Hematology & Oncology
PROC: 3E013GC Introduction of Other Therapeutic Substance into Subcutaneous Tissue, Percutaneous Approach (ICD-10-PCS; principal; 2022-09-13)
DX: E83.111 Hemochromatosis due to repeated red blood cell transfusions (principal)
CPT/HCPCS: 96372; J0895

== ENCOUNTER 2022-09-16 10:15 | Day surgery (SDC) | payer OTHER, MEDICARE ==
[2022-09-16 15:40] VITALS: BP 128/58; PULSE 100; RESP 20; TEMP 98.1
== END 2022-09-16 10:40 | disposition home or self-care (01) ==
LOC: JONCNONCHE 10:15
PROVIDERS: ATTEND Internal Medicine Hematology & Oncology
PROC: 3E013GC Introduction of Other Therapeutic Substance into Subcutaneous Tissue, Percutaneous Approach (ICD-10-PCS; principal; 2022-09-16)
DX: E83.111 Hemochromatosis due to repeated red blood cell transfusions (principal)
CPT/HCPCS: 96372; J0895

== ENCOUNTER 2022-09-17 08:28 | Day surgery (SDC) | payer OTHER, MEDICARE ==
[2022-09-17] MEDS ORDERED: [UNRECOGNIZED DRUG - OTHER] IM ONE (09:00)
[2022-09-17] MEDS ORDERED: FUROSEMIDE 40 MG TABLET (FP) PO ONE (10:00)
[2022-09-17 12:28] LABS: EPI CELLS 7 /uL (0-25.1); HYALINE CASTS 0 /uL (0-3.1); URINE APPEARANCE CLEAR; URINE BACTERIA 4308 /uL (0-1359); URINE BILIRUBIN NEGATIVE (NEGATIVE); URINE COLOR YELLOW; URINE GLUCOSE (UA) NEGATIVE (NEGATIVE); URINE KETONE NEGATIVE (NEGATIVE); URINE LEUK ESTERASE NEGATIVE (NEGATIVE); URINE NITRITE POSITIVE (NEGATIVE); URINE PROTEIN NEGATIVE (NEGATIVE); URINE RBC 1 /uL (0-23.9); URINE UROBILINOGEN 0.2 mg/dL (0.2-1.0); URINE WBC 16 /uL (0-25.8)
[2022-09-17] MEDS ORDERED: guaiFENesin/D-M SUGAR-FREE/ACLHOL-FREE (200 MG/10 MG) 5 ML PO ONE (16:57)
[2022-09-17 18:18] LABS: BASO % 0.3 % (0-2.0); EOS % 0.2 % (0-4.5); HEMATOCRIT 25.3 % (32.4-45.2); HEMOGLOBIN 8.9 GM/dL (10.7-15.3); LYMPH % 26.1 % (8-40); MCH 29.3 pg (25.7-33.7); MEAN CELL VOLUME 83.7 fl (80-96); MEAN PLT VOLUME 7.6 fl (7.5-11.1); MONO % 9.5 % (3.8-10.2); NEUT % 63.9 % (42.8-82.8); PLATELET COUNT 114 10^3/uL (134-434); RBC 3.03 M/mm3 (3.60-5.2); RDW 14.7 % (11.6-15.6); WHITE BLOOD COUNT 3.9 K/mm3 (4.0-10.0)
[2022-09-17] MEDS ORDERED: PORTA CATH FLUSH 10 ML IVPUSH PRN ×2 (18:47→19:13)
[2022-09-17 18:58] VITALS: BP 147/59; PULSE 79; RESP 18; TEMP 98.3
== END 2022-09-17 18:00 | disposition home or self-care (01) ==
LOC: JONCBLOOD 08:28
PROVIDERS: ATTEND Internal Medicine Hematology & Oncology
PROC: 30233H1 Transfusion of Nonautologous Whole Blood into Peripheral Vein, Percutaneous Approach (ICD-10-PCS; principal; 2022-09-17)
DX: K55.21 Angiodysplasia of colon with hemorrhage (principal)
CPT/HCPCS: 36415; 36430; 36511; 71046-TC-FY; 81003; 85025; 86850; 86900; 86901; 86922; 87086; J0895; P9038; P9058

== ENCOUNTER 2022-09-18 10:00 | Day surgery (SDC) | payer OTHER, MEDICARE ==
[2022-09-18 14:56] VITALS: BP 124/46; PULSE 78; RESP 20; TEMP 97.6
== END 2022-09-18 11:15 | disposition home or self-care (01) ==
LOC: JONCNONCHE 10:00
PROVIDERS: ATTEND Internal Medicine Hematology & Oncology
PROC: 3E013GC Introduction of Other Therapeutic Substance into Subcutaneous Tissue, Percutaneous Approach (ICD-10-PCS; principal; 2022-09-18)
DX: E83.111 Hemochromatosis due to repeated red blood cell transfusions (principal)
CPT/HCPCS: 96372; J0895

== ENCOUNTER 2022-09-19 10:00 | Day surgery (SDC) | payer OTHER, MEDICARE | END 2022-09-19 10:30 | disposition home or self-care (01) | LOC: JONCNONCHE 10:00 | PROVIDERS: ATTEND Internal Medicine Hematology & Oncology | PROC: 3E013GC Introduction of Other Therapeutic Substance into Subcutaneous Tissue, Percutaneous Approach (ICD-10-PCS; principal; 2022-09-19) | DX: E83.111 Hemochromatosis due to repeated red blood cell transfusions (principal) | CPT/HCPCS: 96372; J0895 ==

== ENCOUNTER 2022-09-20 10:50 | Day surgery (SDC) | payer OTHER, MEDICARE ==
[2022-09-20 14:05] VITALS: BP 117/56; PULSE 72; RESP 18; TEMP 98.6
== END 2022-09-20 11:00 | disposition home or self-care (01) ==
LOC: JONCNONCHE 10:50
PROVIDERS: ATTEND Internal Medicine Hematology & Oncology
PROC: 3E013GC Introduction of Other Therapeutic Substance into Subcutaneous Tissue, Percutaneous Approach (ICD-10-PCS; principal; 2022-09-20)
DX: E83.111 Hemochromatosis due to repeated red blood cell transfusions (principal)
CPT/HCPCS: 96372; J0895

== ENCOUNTER 2022-09-23 11:03 | Day surgery (SDC) | payer OTHER, MEDICARE ==
[2022-09-23] MEDS ORDERED: [UNRECOGNIZED DRUG - OTHER] IM ONE (11:15)
[2022-09-23 16:16] VITALS: BP 109/54; PULSE 73; RESP 17; TEMP 98.2
== END 2022-09-23 12:00 | disposition home or self-care (01) ==
LOC: JONCNONCHE 11:03
PROVIDERS: ATTEND Internal Medicine Hematology & Oncology
PROC: 3E013GC Introduction of Other Therapeutic Substance into Subcutaneous Tissue, Percutaneous Approach (ICD-10-PCS; principal; 2022-09-23)
DX: E83.111 Hemochromatosis due to repeated red blood cell transfusions (principal)
CPT/HCPCS: 96372; J0895

== ENCOUNTER 2022-09-24 10:05 | Day surgery (SDC) | payer OTHER, MEDICARE ==
[2022-09-24 15:16] VITALS: BP 128/52; PULSE 75; RESP 20; TEMP 98.2
== END 2022-09-24 11:45 | disposition home or self-care (01) ==
LOC: JONCNONCHE 10:05
PROVIDERS: ATTEND Internal Medicine Hematology & Oncology
PROC: 3E013GC Introduction of Other Therapeutic Substance into Subcutaneous Tissue, Percutaneous Approach (ICD-10-PCS; principal; 2022-09-24)
DX: E83.111 Hemochromatosis due to repeated red blood cell transfusions (principal)
CPT/HCPCS: 96372; J0895

== ENCOUNTER 2022-09-25 11:00 | Day surgery (SDC) | payer OTHER, MEDICARE ==
[2022-09-25 15:03] VITALS: BP 98/52; PULSE 78; RESP 20; TEMP 98.1
== END 2022-09-25 11:45 | disposition home or self-care (01) ==
LOC: JONCNONCHE 11:00
PROVIDERS: ATTEND Internal Medicine Hematology & Oncology
PROC: 3E013GC Introduction of Other Therapeutic Substance into Subcutaneous Tissue, Percutaneous Approach (ICD-10-PCS; principal; 2022-09-25)
DX: E83.111 Hemochromatosis due to repeated red blood cell transfusions (principal)
CPT/HCPCS: 96372; J0895

== ENCOUNTER 2022-09-26 10:50 | Day surgery (SDC) | payer OTHER, MEDICARE ==
[2022-09-26] MEDS ORDERED: OCTREOTIDE ACETATE,MI-SPHERES (SANDOSTATIN LAR) 30 MG VIAL IM ONE ×2 (12:00)
[2022-09-26 15:43] VITALS: BP 145/68; PULSE 101; RESP 20; TEMP 98.3
== END 2022-09-26 11:30 | disposition home or self-care (01) ==
LOC: JONCNONCHE 10:50
PROVIDERS: ATTEND Internal Medicine Hematology & Oncology
PROC: 3E013GC Introduction of Other Therapeutic Substance into Subcutaneous Tissue, Percutaneous Approach (ICD-10-PCS; principal; 2022-09-26)
DX: E83.111 Hemochromatosis due to repeated red blood cell transfusions (principal)
CPT/HCPCS: 96372; J0895

== ENCOUNTER 2022-09-27 13:15 | Day surgery (SDC) | payer OTHER, MEDICARE ==
[~2022-09-27 13:15] MED LIST changes: +OCTREOTIDE ACETATE,MI-SPHERES (SANDOSTATIN LAR) 30 MG VIAL IM ONE
[2022-09-27 17:31] VITALS: BP 133/65; PULSE 73; RESP 20; TEMP 97.6
== END 2022-09-27 13:30 | disposition home or self-care (01) ==
LOC: JONCNONCHE 13:15
PROVIDERS: ATTEND Internal Medicine Hematology & Oncology
PROC: 3E013GC Introduction of Other Therapeutic Substance into Subcutaneous Tissue, Percutaneous Approach (ICD-10-PCS; principal; 2022-09-27)
DX: E83.111 Hemochromatosis due to repeated red blood cell transfusions (principal); K55.21 Angiodysplasia of colon with hemorrhage
CPT/HCPCS: 96372; J0895; J2353

== ENCOUNTER 2022-09-30 09:18 | Day surgery (SDC) | payer OTHER, MEDICARE ==
[2022-09-30] MEDS ORDERED: [UNRECOGNIZED DRUG - OTHER] IM ONE (09:30)
[2022-09-30 15:44] VITALS: BP 112/48; PULSE 81; RESP 18; TEMP 97.8
== END 2022-09-30 09:55 | disposition home or self-care (01) ==
LOC: JONCNONCHE 09:18
PROVIDERS: ATTEND Internal Medicine Hematology & Oncology
PROC: 3E013GC Introduction of Other Therapeutic Substance into Subcutaneous Tissue, Percutaneous Approach (ICD-10-PCS; principal; 2022-09-30)
DX: E83.111 Hemochromatosis due to repeated red blood cell transfusions (principal); K55.21 Angiodysplasia of colon with hemorrhage
CPT/HCPCS: 96372; J0895

== ENCOUNTER 2022-10-01 10:09 | Day surgery (SDC) | payer OTHER, MEDICARE ==
[~2022-10-01 10:09] MED LIST changes: -OCTREOTIDE ACETATE,MI-SPHERES (SANDOSTATIN LAR) 30 MG VIAL IM ONE
[2022-10-01 10:17] VITALS: BP 103/47; PULSE 83; RESP 20; TEMP 97.8
== END 2022-10-01 10:30 | disposition home or self-care (01) ==
LOC: JONCNONCHE 10:09
PROVIDERS: ATTEND Internal Medicine Hematology & Oncology
PROC: 3E013GC Introduction of Other Therapeutic Substance into Subcutaneous Tissue, Percutaneous Approach (ICD-10-PCS; principal; 2022-10-01)
DX: E83.111 Hemochromatosis due to repeated red blood cell transfusions (principal); K55.21 Angiodysplasia of colon with hemorrhage
CPT/HCPCS: 96372; J0895

== ENCOUNTER 2022-10-02 10:00 | Day surgery (SDC) | payer OTHER, MEDICARE ==
[2022-10-02 11:35] VITALS: BP 139/63; PULSE 103; RESP 20; TEMP 98.3
== END 2022-10-02 12:00 | disposition home or self-care (01) ==
LOC: JONCNONCHE 10:00
PROVIDERS: ATTEND Internal Medicine Hematology & Oncology
PROC: 3E013GC Introduction of Other Therapeutic Substance into Subcutaneous Tissue, Percutaneous Approach (ICD-10-PCS; principal; 2022-10-02)
DX: E83.111 Hemochromatosis due to repeated red blood cell transfusions (principal); K55.21 Angiodysplasia of colon with hemorrhage
CPT/HCPCS: 96372; J0895

== ENCOUNTER 2022-10-03 11:10 | Day surgery (SDC) | payer OTHER, MEDICARE ==
[2022-10-03 14:31] VITALS: BP 109/49; PULSE 88; RESP 20; TEMP 98.1
== END 2022-10-03 12:00 | disposition home or self-care (01) ==
LOC: JONCNONCHE 11:10
PROVIDERS: ATTEND Internal Medicine Hematology & Oncology
PROC: 3E013GC Introduction of Other Therapeutic Substance into Subcutaneous Tissue, Percutaneous Approach (ICD-10-PCS; principal; 2022-10-03)
DX: E83.111 Hemochromatosis due to repeated red blood cell transfusions (principal); K55.21 Angiodysplasia of colon with hemorrhage
CPT/HCPCS: 96372; J0895

== ENCOUNTER 2022-10-04 07:29 | Day surgery (SDC) | payer OTHER, MEDICARE ==
[2022-10-04] MEDS ORDERED: FUROSEMIDE 40 MG/4 ML INJECTABLE VIAL IVPUSH ONE (09:15)
[2022-10-04] MEDS ORDERED: [UNRECOGNIZED DRUG - OTHER] IM ONE (10:00)
[2022-10-04 16:20] VITALS: RESP 18; TEMP 97.9
[2022-10-04] MEDS ORDERED: PORTA CATH FLUSH 10 ML IVPUSH PRN (17:01)
[2022-10-04 17:35] VITALS: BP 105/57; PULSE 78
[2022-10-04 18:29] LABS: HEMATOCRIT 25.3 % (32.4-45.2); HEMOGLOBIN 8.8 GM/dL (10.7-15.3); MCH 29.1 pg (25.7-33.7); MEAN CELL VOLUME 83.3 fl (80-96); MEAN PLT VOLUME 7.6 fl (7.5-11.1); PLATELET COUNT 141 10^3/uL (134-434); RBC 3.03 M/mm3 (3.60-5.2); RDW 14.3 % (11.6-15.6); WHITE BLOOD COUNT 4.7 K/mm3 (4.0-10.0)
== END 2022-10-04 18:07 | disposition home or self-care (01) ==
LOC: JONCNONCHE 07:29
PROVIDERS: ATTEND Internal Medicine Hematology & Oncology
PROC: 30233N1 Transfusion of Nonautologous Red Blood Cells into Peripheral Vein, Percutaneous Approach (ICD-10-PCS; principal; 2022-10-04)
DX: K55.21 Angiodysplasia of colon with hemorrhage (principal)
CPT/HCPCS: 36415; 36430; 85027; 86850; 86900; 86901; 86922; J0895; P9058

== ENCOUNTER 2022-10-07 10:53 | Day surgery (SDC) | payer OTHER, MEDICARE ==
[2022-10-07 16:15] VITALS: BP 104/54; PULSE 95; RESP 19; TEMP 98.5
== END 2022-10-07 11:00 | disposition home or self-care (01) ==
LOC: JONCNONCHE 10:53
PROVIDERS: ATTEND Internal Medicine Hematology & Oncology
PROC: 3E013GC Introduction of Other Therapeutic Substance into Subcutaneous Tissue, Percutaneous Approach (ICD-10-PCS; principal; 2022-10-07)
DX: E83.111 Hemochromatosis due to repeated red blood cell transfusions (principal); K55.21 Angiodysplasia of colon with hemorrhage
CPT/HCPCS: 96372; J0895

== ENCOUNTER 2022-10-08 10:20 | Day surgery (SDC) | payer OTHER, MEDICARE ==
[2022-10-08 16:29] VITALS: BP 114/63; PULSE 97; RESP 19; TEMP 98
== END 2022-10-08 10:45 | disposition home or self-care (01) ==
LOC: JONCNONCHE 10:20
PROVIDERS: ATTEND Internal Medicine Hematology & Oncology
PROC: 3E013GC Introduction of Other Therapeutic Substance into Subcutaneous Tissue, Percutaneous Approach (ICD-10-PCS; principal; 2022-10-08)
DX: E83.111 Hemochromatosis due to repeated red blood cell transfusions (principal); K55.21 Angiodysplasia of colon with hemorrhage
CPT/HCPCS: 96372; J0895

== ENCOUNTER 2022-10-09 10:40 | Day surgery (SDC) | payer OTHER, MEDICARE ==
[2022-10-09 17:45] VITALS: BP 100/50; PULSE 87; RESP 20; TEMP 98.3
== END 2022-10-09 11:10 | disposition home or self-care (01) ==
LOC: JONCNONCHE 10:40
PROVIDERS: ATTEND Internal Medicine Hematology & Oncology
PROC: 3E013GC Introduction of Other Therapeutic Substance into Subcutaneous Tissue, Percutaneous Approach (ICD-10-PCS; principal; 2022-10-09)
DX: E83.111 Hemochromatosis due to repeated red blood cell transfusions (principal); K55.21 Angiodysplasia of colon with hemorrhage
CPT/HCPCS: 96372; J0895

== ENCOUNTER 2022-10-10 12:40 | Day surgery (SDC) | payer OTHER, MEDICARE ==
[2022-10-10 17:40] VITALS: BP 126/57; PULSE 84; RESP 20; TEMP 98.2
== END 2022-10-10 13:10 | disposition home or self-care (01) ==
LOC: JONCNONCHE 12:40
PROVIDERS: ATTEND Internal Medicine Hematology & Oncology
PROC: 3E013GC Introduction of Other Therapeutic Substance into Subcutaneous Tissue, Percutaneous Approach (ICD-10-PCS; principal; 2022-10-10)
DX: E83.111 Hemochromatosis due to repeated red blood cell transfusions (principal); K55.21 Angiodysplasia of colon with hemorrhage
CPT/HCPCS: 96372; J0895

== ENCOUNTER 2022-10-11 10:09 | Day surgery (SDC) | payer OTHER, MEDICARE ==
[2022-10-11 17:36] VITALS: BP 126/64; PULSE 89; RESP 20; TEMP 98.2
== END 2022-10-11 11:00 | disposition home or self-care (01) ==
LOC: JONCNONCHE 10:09
PROVIDERS: ATTEND Internal Medicine Hematology & Oncology
PROC: 3E013GC Introduction of Other Therapeutic Substance into Subcutaneous Tissue, Percutaneous Approach (ICD-10-PCS; principal; 2022-10-11)
DX: E83.111 Hemochromatosis due to repeated red blood cell transfusions (principal); K55.21 Angiodysplasia of colon with hemorrhage
CPT/HCPCS: 96372; J0895

== ENCOUNTER 2022-10-14 09:50 | Day surgery (SDC) | payer OTHER, MEDICARE ==
[2022-10-14] MEDS ORDERED: [UNRECOGNIZED DRUG - OTHER] IM ONE (10:00)
[2022-10-14 17:15] VITALS: BP 120/43; PULSE 91; RESP 20; TEMP 99
== END 2022-10-14 11:00 | disposition home or self-care (01) ==
LOC: JONCNONCHE 09:50
PROVIDERS: ATTEND Internal Medicine Hematology & Oncology
PROC: 3E013GC Introduction of Other Therapeutic Substance into Subcutaneous Tissue, Percutaneous Approach (ICD-10-PCS; principal; 2022-10-14)
DX: E83.111 Hemochromatosis due to repeated red blood cell transfusions (principal); K55.21 Angiodysplasia of colon with hemorrhage
CPT/HCPCS: 96372; J0895

== ENCOUNTER 2022-10-15 11:41 | Day surgery (SDC) | payer OTHER, MEDICARE ==
[2022-10-15 17:36] VITALS: BP 101/57; PULSE 101; RESP 20; TEMP 98.3
== END 2022-10-15 12:00 | disposition home or self-care (01) ==
LOC: JONCNONCHE 11:41
PROVIDERS: ATTEND Internal Medicine Hematology & Oncology
PROC: 3E013GC Introduction of Other Therapeutic Substance into Subcutaneous Tissue, Percutaneous Approach (ICD-10-PCS; principal; 2022-10-15)
DX: E83.111 Hemochromatosis due to repeated red blood cell transfusions (principal); K55.21 Angiodysplasia of colon with hemorrhage
CPT/HCPCS: 96372; J0895

== ENCOUNTER 2022-10-16 13:00 | Day surgery (SDC) | payer OTHER, MEDICARE ==
[2022-10-16 16:02] VITALS: BP 104/45; PULSE 78; RESP 20; TEMP 97.6
== END 2022-10-16 13:30 | disposition home or self-care (01) ==
LOC: JONCNONCHE 13:00
PROVIDERS: ATTEND Internal Medicine Hematology & Oncology
PROC: 3E013GC Introduction of Other Therapeutic Substance into Subcutaneous Tissue, Percutaneous Approach (ICD-10-PCS; principal; 2022-10-16)
DX: E83.111 Hemochromatosis due to repeated red blood cell transfusions (principal); K55.21 Angiodysplasia of colon with hemorrhage
CPT/HCPCS: 96372; J0895

== ENCOUNTER 2022-10-17 12:45 | Day surgery (SDC) | payer OTHER, MEDICARE ==
[2022-10-17 14:10] VITALS: BP 128/43; PULSE 84; RESP 19; TEMP 97.5
== END 2022-10-17 13:15 | disposition home or self-care (01) ==
LOC: JONCNONCHE 12:45
PROVIDERS: ATTEND Internal Medicine Hematology & Oncology
PROC: 3E013GC Introduction of Other Therapeutic Substance into Subcutaneous Tissue, Percutaneous Approach (ICD-10-PCS; principal; 2022-10-17)
DX: E83.111 Hemochromatosis due to repeated red blood cell transfusions (principal); K55.21 Angiodysplasia of colon with hemorrhage
CPT/HCPCS: 96372; J0895

== ENCOUNTER 2022-10-18 10:46 | Day surgery (SDC) | payer OTHER, MEDICARE ==
[2022-10-18] MEDS ORDERED: [UNRECOGNIZED DRUG - OTHER] IM ONE (11:00)
[2022-10-18 15:06] VITALS: BP 104/43; PULSE 67; RESP 20; TEMP 97.7
== END 2022-10-18 12:00 | disposition home or self-care (01) ==
LOC: JONCNONCHE 10:46
PROVIDERS: ATTEND Internal Medicine Hematology & Oncology
PROC: 3E013GC Introduction of Other Therapeutic Substance into Subcutaneous Tissue, Percutaneous Approach (ICD-10-PCS; principal; 2022-10-18)
DX: E83.111 Hemochromatosis due to repeated red blood cell transfusions (principal); K55.21 Angiodysplasia of colon with hemorrhage
CPT/HCPCS: 96372; J0895

== ENCOUNTER 2022-10-21 09:45 | Day surgery (SDC) | payer OTHER, MEDICARE ==
[2022-10-21] MEDS ORDERED: [UNRECOGNIZED DRUG - OTHER] IM ONE (10:00)
[2022-10-21 16:44] VITALS: BP 126/56; PULSE 85; RESP 20; TEMP 98.1
== END 2022-10-21 11:00 | disposition home or self-care (01) ==
LOC: JONCNONCHE 09:45
PROVIDERS: ATTEND Internal Medicine Hematology & Oncology
DX: E83.111 Hemochromatosis due to repeated red blood cell transfusions (principal); K55.21 Angiodysplasia of colon with hemorrhage
CPT/HCPCS: 96372; J0895

== ENCOUNTER 2022-10-22 10:00 | Day surgery (SDC) | payer OTHER, MEDICARE ==
[2022-10-22 15:29] VITALS: BP 133/45; PULSE 87; RESP 18; TEMP 97.5
== END 2022-10-22 10:50 | disposition home or self-care (01) ==
LOC: JONCNONCHE 10:00
PROVIDERS: ATTEND Internal Medicine Hematology & Oncology
PROC: 3E013GC Introduction of Other Therapeutic Substance into Subcutaneous Tissue, Percutaneous Approach (ICD-10-PCS; principal; 2022-10-22)
DX: E83.111 Hemochromatosis due to repeated red blood cell transfusions (principal); K55.21 Angiodysplasia of colon with hemorrhage
CPT/HCPCS: 96372; J0895

== ENCOUNTER 2022-10-23 12:35 | Day surgery (SDC) | payer OTHER, MEDICARE ==
[2022-10-23 16:06] VITALS: BP 108/54; PULSE 80; RESP 18; TEMP 97.6
== END 2022-10-23 12:55 | disposition home or self-care (01) ==
LOC: JONCNONCHE 12:35 → J7W 12:35 → JONCNONCHE 12:55
PROVIDERS: ATTEND Internal Medicine Hematology & Oncology
PROC: 3E013GC Introduction of Other Therapeutic Substance into Subcutaneous Tissue, Percutaneous Approach (ICD-10-PCS; principal; 2022-10-23)
DX: E83.111 Hemochromatosis due to repeated red blood cell transfusions (principal); K55.21 Angiodysplasia of colon with hemorrhage
CPT/HCPCS: 96372; J0895

== ENCOUNTER 2022-10-24 13:00 | Day surgery (SDC) | payer OTHER, MEDICARE ==
[2022-10-24 17:11] VITALS: BP 107/56; PULSE 81; RESP 20; TEMP 97.3
== END 2022-10-24 13:20 | disposition home or self-care (01) ==
LOC: JONCNONCHE 13:00 → J7W 15:40
PROVIDERS: ATTEND Internal Medicine Hematology & Oncology
PROC: 3E013GC Introduction of Other Therapeutic Substance into Subcutaneous Tissue, Percutaneous Approach (ICD-10-PCS; principal; 2022-10-24)
DX: E83.111 Hemochromatosis due to repeated red blood cell transfusions (principal); K55.21 Angiodysplasia of colon with hemorrhage
CPT/HCPCS: 96372; J0895

== ENCOUNTER 2022-10-25 10:40 | Day surgery (SDC) | payer OTHER, MEDICARE ==
[2022-10-25 16:20] VITALS: BP 104/51; PULSE 79; RESP 20; TEMP 98
== END 2022-10-25 11:10 | disposition home or self-care (01) ==
LOC: JONCNONCHE 10:40 → J7W 14:11
PROVIDERS: ATTEND Internal Medicine Hematology & Oncology
PROC: 3E013GC Introduction of Other Therapeutic Substance into Subcutaneous Tissue, Percutaneous Approach (ICD-10-PCS; principal; 2022-10-25)
DX: E83.111 Hemochromatosis due to repeated red blood cell transfusions (principal); K55.21 Angiodysplasia of colon with hemorrhage
CPT/HCPCS: 96372; J0895

== ENCOUNTER 2022-10-28 10:36 | Day surgery (SDC) | payer OTHER, MEDICARE ==
[2022-10-28 18:12] VITALS: BP 102/38; PULSE 73; RESP 18; TEMP 98.2
== END 2022-10-28 11:30 | disposition home or self-care (01) ==
LOC: JONCNONCHE 10:36 → J7W 10:37 → JONCNONCHE 11:30
PROVIDERS: ATTEND Internal Medicine Hematology & Oncology
DX: E83.111 Hemochromatosis due to repeated red blood cell transfusions (principal); K55.21 Angiodysplasia of colon with hemorrhage
CPT/HCPCS: 96372; J0895

== ENCOUNTER 2022-10-29 08:09 | Day surgery (SDC) | payer OTHER, MEDICARE ==
[2022-10-29] MEDS ORDERED: [UNRECOGNIZED DRUG - OTHER] IM ONE (08:30)
[2022-10-29] MEDS ORDERED: FUROSEMIDE 20 MG TABLET (FP) PO ONE (10:00)
[2022-10-29 17:29] VITALS: BP 105/38; PULSE 77; RESP 20; TEMP 97.5
[2022-10-29] MEDS ORDERED: PORTA CATH FLUSH 10 ML IVPUSH PRN (17:41)
[2022-10-29 17:59] LABS: BASO % 0.2 % (0-2.0); EOS % 0.3 % (0-4.5); HEMATOCRIT 21.2 % (32.4-45.2); HEMOGLOBIN 7.6 GM/dL (10.7-15.3); LYMPH % 25.9 % (8-40); MCH 29.6 pg (25.7-33.7); MEAN PLT VOLUME 7.7 fl (7.5-11.1); MONO % 6.3 % (3.8-10.2); NEUT % 67.3 % (42.8-82.8); PLATELET COUNT 114 10^3/uL (134-434); RBC 2.58 M/mm3 (3.60-5.2); RDW 15.2 % (11.6-15.6); WHITE BLOOD COUNT 4.1 K/mm3 (4.0-10.0)
== END 2022-10-29 18:10 | disposition home or self-care (01) ==
LOC: J7W 08:09 → JONCNONCHE 08:09
PROVIDERS: ATTEND Internal Medicine Hematology & Oncology
PROC: 30233H1 Transfusion of Nonautologous Whole Blood into Peripheral Vein, Percutaneous Approach (ICD-10-PCS; principal; 2022-10-29)
PROC: 3E013GC Introduction of Other Therapeutic Substance into Subcutaneous Tissue, Percutaneous Approach (ICD-10-PCS; 2022-10-29)
DX: K55.21 Angiodysplasia of colon with hemorrhage (principal); E83.111 Hemochromatosis due to repeated red blood cell transfusions
CPT/HCPCS: 36415; 36430; 85025; 86850; 86900; 86901; 86922; 96372; J0895; P9038; P9058

== ENCOUNTER 2022-10-30 12:30 | Day surgery (SDC) | payer OTHER, MEDICARE ==
[2022-10-30 15:40] VITALS: BP 144/77; PULSE 109; RESP 20; TEMP 97.6
== END 2022-10-30 13:00 | disposition home or self-care (01) ==
LOC: J7W 12:30 → JONCNONCHE 12:30
PROVIDERS: ATTEND Internal Medicine Hematology & Oncology
PROC: 3E013GC Introduction of Other Therapeutic Substance into Subcutaneous Tissue, Percutaneous Approach (ICD-10-PCS; principal; 2022-10-30)
DX: E83.111 Hemochromatosis due to repeated red blood cell transfusions (principal); K55.21 Angiodysplasia of colon with hemorrhage
CPT/HCPCS: 96372; J0895

== ENCOUNTER 2022-10-31 11:05 | Day surgery (SDC) | payer OTHER, MEDICARE ==
[2022-10-31 18:00] VITALS: BP 122/57; PULSE 80; RESP 20; TEMP 98.2
== END 2022-10-31 11:30 | disposition home or self-care (01) ==
LOC: JONCNONCHE 11:05 → J7W 12:42
PROVIDERS: ATTEND Internal Medicine Hematology & Oncology
PROC: 3E013GC Introduction of Other Therapeutic Substance into Subcutaneous Tissue, Percutaneous Approach (ICD-10-PCS; principal; 2022-10-31)
DX: E83.111 Hemochromatosis due to repeated red blood cell transfusions (principal); K55.21 Angiodysplasia of colon with hemorrhage
CPT/HCPCS: 96372; J0895

== ENCOUNTER 2022-11-01 09:22 | Day surgery (SDC) | payer OTHER, MEDICARE ==
[2022-11-01] MEDS ORDERED: [UNRECOGNIZED DRUG - OTHER] IM ONE (10:00)
[2022-11-01 11:25] VITALS: BP 97/45; PULSE 75; RESP 18; TEMP 98.5
== END 2022-11-01 10:00 | disposition home or self-care (01) ==
LOC: JONCNONCHE 09:22 → J7W 09:23 → JONCNONCHE 10:00
PROVIDERS: ATTEND Internal Medicine Hematology & Oncology
PROC: 3E013GC Introduction of Other Therapeutic Substance into Subcutaneous Tissue, Percutaneous Approach (ICD-10-PCS; principal; 2022-11-01)
DX: E83.111 Hemochromatosis due to repeated red blood cell transfusions (principal); K55.21 Angiodysplasia of colon with hemorrhage
CPT/HCPCS: 96372; J0895

== ENCOUNTER 2022-11-04 12:50 | Day surgery (SDC) | payer OTHER, MEDICARE ==
[2022-11-04 14:26] VITALS: BP 114/58; PULSE 71; RESP 20; TEMP 97.6
== END 2022-11-04 13:00 | disposition home or self-care (01) ==
LOC: JONCNONCHE 12:50
PROVIDERS: ATTEND Internal Medicine Hematology & Oncology
PROC: 3E013GC Introduction of Other Therapeutic Substance into Subcutaneous Tissue, Percutaneous Approach (ICD-10-PCS; principal; 2022-11-04)
DX: E83.111 Hemochromatosis due to repeated red blood cell transfusions (principal); K55.21 Angiodysplasia of colon with hemorrhage
CPT/HCPCS: 96372; J0895

== ENCOUNTER 2022-11-05 14:15 | Day surgery (SDC) | payer OTHER, MEDICARE ==
[2022-11-05 18:27] VITALS: BP 124/53; PULSE 64; RESP 20; TEMP 97.7
== END 2022-11-05 14:40 | disposition home or self-care (01) ==
LOC: JONCNONCHE 14:15
PROVIDERS: ATTEND Internal Medicine Hematology & Oncology
PROC: 3E013GC Introduction of Other Therapeutic Substance into Subcutaneous Tissue, Percutaneous Approach (ICD-10-PCS; principal; 2022-11-05)
DX: E83.111 Hemochromatosis due to repeated red blood cell transfusions (principal); K55.21 Angiodysplasia of colon with hemorrhage
CPT/HCPCS: 96372; J0895

== ENCOUNTER 2022-11-06 10:19 | Day surgery (SDC) | payer OTHER, MEDICARE ==
[2022-11-06 16:01] VITALS: BP 91/39; PULSE 63; RESP 20; TEMP 98.2
== END 2022-11-06 11:30 | disposition home or self-care (01) ==
LOC: JONCNONCHE 10:19 → J7W 10:49 → JONCNONCHE 11:30
PROVIDERS: ATTEND Internal Medicine Hematology & Oncology
PROC: 3E013GC Introduction of Other Therapeutic Substance into Subcutaneous Tissue, Percutaneous Approach (ICD-10-PCS; principal; 2022-11-06)
DX: E83.111 Hemochromatosis due to repeated red blood cell transfusions (principal); K55.21 Angiodysplasia of colon with hemorrhage
CPT/HCPCS: 96372; J0895

== ENCOUNTER 2022-11-07 11:50 | Day surgery (SDC) | payer OTHER, MEDICARE ==
[2022-11-07 17:44] VITALS: BP 106/32; PULSE 78; RESP 18; TEMP 98.2
== END 2022-11-07 12:35 | disposition home or self-care (01) ==
LOC: JONCNONCHE 11:50
PROVIDERS: ATTEND Internal Medicine Hematology & Oncology
PROC: 3E013GC Introduction of Other Therapeutic Substance into Subcutaneous Tissue, Percutaneous Approach (ICD-10-PCS; principal; 2022-11-07)
DX: E83.111 Hemochromatosis due to repeated red blood cell transfusions (principal); K55.21 Angiodysplasia of colon with hemorrhage
CPT/HCPCS: 96372; J0895

== ENCOUNTER 2022-11-08 07:30 | Day surgery (SDC) | payer OTHER, MEDICARE ==
[2022-11-08] MEDS ORDERED: FUROSEMIDE 20 MG TABLET (FP) PO SCH (08:30)
[2022-11-08] MEDS ORDERED: [UNRECOGNIZED DRUG - OTHER] IM ONE (09:00)
[2022-11-08] MEDS ORDERED: PORTA CATH FLUSH 10 ML IVPUSH PRN (18:03)
[2022-11-08 18:20] VITALS: RESP 18
[2022-11-08 18:39] LABS: BASO % 0.3 % (0-2.0); EOS % 0.4 % (0-4.5); HEMATOCRIT 24.9 % (32.4-45.2); HEMOGLOBIN 8.7 GM/dL (10.7-15.3); LYMPH % 26.6 % (8-40); MCH 28.7 pg (25.7-33.7); MCHC 35.2 g/dl (32.0-36.0); MEAN CELL VOLUME 81.7 fl (80-96); MEAN PLT VOLUME 7.4 fl (7.5-11.1); MONO % 6.3 % (3.8-10.2); NEUT % 66.4 % (42.8-82.8); PLATELET COUNT 136 10^3/uL (134-434); RBC 3.04 M/mm3 (3.60-5.2); RDW 14.5 % (11.6-15.6); WHITE BLOOD COUNT 4.7 K/mm3 (4.0-10.0)
[2022-11-08 18:42] VITALS: BP 116/50; PULSE 73; TEMP 98.6
== END 2022-11-08 18:35 | disposition home or self-care (01) ==
LOC: JONCNONCHE 07:30 → J7W 11:33 → JONCNONCHE 18:35
PROVIDERS: ATTEND Internal Medicine Hematology & Oncology
PROC: 3E013GC Introduction of Other Therapeutic Substance into Subcutaneous Tissue, Percutaneous Approach (ICD-10-PCS; principal; 2022-11-08)
PROC: 30233H1 Transfusion of Nonautologous Whole Blood into Peripheral Vein, Percutaneous Approach (ICD-10-PCS; 2022-11-08)
DX: K55.21 Angiodysplasia of colon with hemorrhage (principal); E83.111 Hemochromatosis due to repeated red blood cell transfusions
CPT/HCPCS: 36415; 36430; 85025; 86850; 86900; 86901; 86922; 96372; J0895; P9058

== ENCOUNTER 2022-11-11 10:25 | Day surgery (SDC) | payer OTHER, MEDICARE ==
[2022-11-11 15:36] VITALS: BP 111/45; PULSE 72; RESP 20; TEMP 98.2
== END 2022-11-11 11:20 | disposition home or self-care (01) ==
LOC: JONCNONCHE 10:25 → J7W 15:14
PROVIDERS: ATTEND Internal Medicine Hematology & Oncology
PROC: 3E013GC Introduction of Other Therapeutic Substance into Subcutaneous Tissue, Percutaneous Approach (ICD-10-PCS; principal; 2022-11-11)
DX: E83.111 Hemochromatosis due to repeated red blood cell transfusions (principal)
CPT/HCPCS: 96372; J0895

== ENCOUNTER 2022-11-12 11:00 | Day surgery (SDC) | payer OTHER, MEDICARE ==
[2022-11-12 17:38] VITALS: BP 112/53; PULSE 79; RESP 20; TEMP 98.2
== END 2022-11-12 11:40 | disposition home or self-care (01) ==
LOC: JONCNONCHE 11:00
PROVIDERS: ATTEND Internal Medicine Hematology & Oncology
PROC: 3E013GC Introduction of Other Therapeutic Substance into Subcutaneous Tissue, Percutaneous Approach (ICD-10-PCS; principal; 2022-11-12)
DX: E83.111 Hemochromatosis due to repeated red blood cell transfusions (principal)
CPT/HCPCS: 96372; J0895

== ENCOUNTER 2022-11-13 07:53 | Day surgery (SDC) | payer OTHER, MEDICARE ==
[2022-11-13] MEDS ORDERED: [UNRECOGNIZED DRUG - OTHER] IM ONE (09:00)
[2022-11-13 15:16] VITALS: BP 102/58; PULSE 94; RESP 18; TEMP 97.9
== END 2022-11-13 11:45 | disposition home or self-care (01) ==
LOC: JONCNONCHE 07:53 → J7W 07:55 → JONCNONCHE 11:45
PROVIDERS: ATTEND Internal Medicine Hematology & Oncology
PROC: 3E013GC Introduction of Other Therapeutic Substance into Subcutaneous Tissue, Percutaneous Approach (ICD-10-PCS; principal; 2022-11-13)
DX: E83.111 Hemochromatosis due to repeated red blood cell transfusions (principal); K55.21 Angiodysplasia of colon with hemorrhage
CPT/HCPCS: 96372; J0895

== ENCOUNTER 2022-11-14 07:50 | Day surgery (SDC) | payer OTHER, MEDICARE ==
[2022-11-14] MEDS ORDERED: [UNRECOGNIZED DRUG - OTHER] IM ONE (09:00)
[2022-11-14 15:37] VITALS: BP 124/53; PULSE 71; RESP 18; TEMP 98.1
== END 2022-11-14 12:00 | disposition home or self-care (01) ==
LOC: J7W 07:50 → JONCNONCHE 07:50
PROVIDERS: ATTEND Internal Medicine Hematology & Oncology
PROC: 3E013GC Introduction of Other Therapeutic Substance into Subcutaneous Tissue, Percutaneous Approach (ICD-10-PCS; principal; 2022-11-14)
DX: E83.111 Hemochromatosis due to repeated red blood cell transfusions (principal); K55.21 Angiodysplasia of colon with hemorrhage
CPT/HCPCS: 96372; J0895

== ENCOUNTER 2022-11-15 10:20 | Day surgery (SDC) | payer OTHER, MEDICARE ==
[2022-11-15 17:49] VITALS: BP 107/45; PULSE 69; RESP 20; TEMP 97.8
== END 2022-11-15 11:05 | disposition home or self-care (01) ==
LOC: JONCNONCHE 10:20 → J7W 10:21 → JONCNONCHE 11:05
PROVIDERS: ATTEND Internal Medicine Hematology & Oncology
PROC: 3E013GC Introduction of Other Therapeutic Substance into Subcutaneous Tissue, Percutaneous Approach (ICD-10-PCS; principal; 2022-11-15)
DX: E83.111 Hemochromatosis due to repeated red blood cell transfusions (principal)
CPT/HCPCS: 96372; J0895

== ENCOUNTER 2022-11-19 11:00 | Day surgery (SDC) | payer OTHER, MEDICARE ==
[2022-11-19] MEDS ORDERED: [UNRECOGNIZED DRUG - OTHER] IM ONE (11:45)
[2022-11-19 17:17] VITALS: BP 121/52; PULSE 70; RESP 18; TEMP 97.9
== END 2022-11-19 12:20 | disposition home or self-care (01) ==
LOC: JONCNONCHE 11:00
PROVIDERS: ATTEND Internal Medicine Hematology & Oncology
PROC: 3E013GC Introduction of Other Therapeutic Substance into Subcutaneous Tissue, Percutaneous Approach (ICD-10-PCS; principal; 2022-11-19)
DX: E83.111 Hemochromatosis due to repeated red blood cell transfusions (principal); K55.21 Angiodysplasia of colon with hemorrhage
CPT/HCPCS: 96372; J0895

== ENCOUNTER 2022-11-20 12:06 | Day surgery (SDC) | payer OTHER, MEDICARE ==
[2022-11-20 15:34] VITALS: BP 120/54; PULSE 88; RESP 20; TEMP 98.1
== END 2022-11-20 12:30 | disposition home or self-care (01) ==
LOC: JONCNONCHE 12:06
PROVIDERS: ATTEND Internal Medicine Hematology & Oncology
PROC: 3E013GC Introduction of Other Therapeutic Substance into Subcutaneous Tissue, Percutaneous Approach (ICD-10-PCS; principal; 2022-11-20)
DX: E83.111 Hemochromatosis due to repeated red blood cell transfusions (principal); K55.21 Angiodysplasia of colon with hemorrhage
CPT/HCPCS: 96372; J0895

== ENCOUNTER 2022-11-24 16:41 | Inpatient (IN) | payer OTHER, MEDICARE ==
[2022-11-24] MEDS ORDERED: DEXTROSE 50%-WATER - 25 GM/50 ML VIAL IVPUSH ONE ×4 (16:53→22:22)
[2022-11-24] MEDS ORDERED: DEXTROSE 50%-WATER 25 GM/50 ML DISP.SYRIN ONE ×3 (16:53→22:21)
[2022-11-24] MEDS ORDERED: ACETAMINOPHEN 1000 MG/100 ML BAG IVPB ONE (17:14)
[2022-11-24] MEDS ORDERED: SODIUM CHLORIDE 0.9% 500 ML INFUS.BAG IV ONE ×2 (17:14→18:39)
[2022-11-24] MEDS ORDERED: ACETAMINOPHEN INJECTION 100 ML IVPB ONE (17:25)
[2022-11-24 17:38] LABS: VENOUS BASE EXCESS -0.7 mmol/L (-2-2); VENOUS O2 SATURATION 84.3 % (70-80); VENOUS PCO2 48.6 mmHg (38-52); VENOUS PH 7.335 (7.310-7.410)
[2022-11-24 17:39] LABS: BASO % 0.3 % (0-2.0); HEMATOCRIT 21.9 % (32.4-45.2); HEMOGLOBIN 7.6 GM/dL (10.7-15.3); LYMPH % 12.9 % (8-40); MCH 28.7 pg (25.7-33.7); MCHC 34.8 g/dl (32.0-36.0); MEAN CELL VOLUME 82.4 fl (80-96); MEAN PLT VOLUME 8.2 fl (7.5-11.1); NEUT % 77.8 % (42.8-82.8); PLATELET COUNT 93 10^3/uL (134-434); RBC 2.66 M/mm3 (3.60-5.2); RDW 15.4 % (11.6-15.6); WHITE BLOOD COUNT 2.7 K/mm3 (4.0-10.0)
[2022-11-24 17:46] LABS: INR 1.51 (0.83-1.09); PROTHROMBIN TIME (PATIENT) 17.4 SEC (9.7-13.0)
[2022-11-24 17:49] LABS: ACTIVATED PTT 44.5 SECONDS (25.2-36.5)
[2022-11-24 18:00] LABS: CHLORIDE 102 mmol/L (98-107); SODIUM 138 mmol/L (136-145)
[2022-11-24 18:02] LABS: BLOOD UREA NITROGEN 44.4 mg/dL (7-18)
[2022-11-24 18:03] LABS: ALBUMIN 2.2 g/dl (3.4-5.0); ANION GAP 7 MMOL/L (8-16); CO2 28 mmol/L (21-32); MAGNESIUM 1.5 mg/dL (1.8-2.4)
[2022-11-24 18:06] LABS: SGOT/AST 234 U/L (15-37); SGPT/ALT 198 U/L (13-61)
[2022-11-24 18:07] LABS: BILIRUBIN,TOTAL 0.6 mg/dL (0.2-1); TOT PROT 5.6 g/dl (6.4-8.2)
[2022-11-24 18:08] LABS: ALK PHOS 304 U/L (45-117)
[2022-11-24 18:17] LABS: GLUCOSE,RANDOM 39 mg/dL (74-106)
[2022-11-24 18:29] LABS: LACTIC ACID 2.5 mmol/L (0.4-2.0)
[2022-11-24] MEDS ORDERED: CEFEPIME HCL/D5W 2 GM/50 ML BAG IVPB ONE (18:39)
[2022-11-24] MEDS ORDERED: VANCOMYCIN 1 GM in D5W (PRE-DOCKED) 1,000 MG/250 ML (RESTRICTED TO ID ONLY IVPB ONE (18:39)
[2022-11-24] MEDS ORDERED: OCTREOTIDE ACETATE 50 MCG/1 ML - 1 ML VIAL SQ ONE (18:40)
[2022-11-24] MEDS ORDERED: OCTREOTIDE ACETATE 100 MCG/1 ML ONE (18:49)
[2022-11-24 19:01] LABS: URINE APPEARANCE CLEAR; URINE BILIRUBIN NEGATIVE (NEGATIVE); URINE COLOR YELLOW; URINE GLUCOSE (UA) NEGATIVE (NEGATIVE); URINE KETONE NEGATIVE (NEGATIVE); URINE LEUK ESTERASE NEGATIVE (NEGATIVE); URINE NITRITE NEGATIVE (NEGATIVE); URINE PROTEIN NEGATIVE (NEGATIVE); URINE UROBILINOGEN 0.2 mg/dL (0.2-1.0)
[2022-11-24] MEDS ORDERED: MAGNESIUM SULF 50% (8.12 MEQ/2 ML-1 GM VIAL) IVPB ONE (19:03)
[2022-11-24] MEDS ORDERED: CEFEPIME 2 GM/100 ML BAG IVPB ONE (19:39)
[2022-11-24] MEDS ORDERED: KCL 10 MEQ IVPB 10 MEQ/100 ML INFUS.BAG IVPB ONE (19:39)
[2022-11-24] MEDS: KCL 10 MEQ IVPB 10 MEQ/100 ML INFUS.BAG IVPB SCH ×2 (19:54→23:28)
[2022-11-24 21:18] LABS: LACTIC ACID 2.4 mmol/L (0.4-2.0)
[2022-11-24] MEDS ORDERED: DEXTROSE 50%-WATER 25 GM/50 ML DISP.SYRIN IVPUSH PRN ×2 (22:23→22:29)
[2022-11-24] MEDS ORDERED: DEXTROSE 10%-WATER - 1,000 ML IV SCH ×2 (22:30→23:40)
[2022-11-24] MEDS: MUPIROCIN 2% TOPICAL OINTMENT FOR DECOLONIZATION NS SCH (22:39)
[2022-11-24] MEDS: CHLORHEXIDINE GLUCONATE 4% CLEANSER FOR DECOLONIZATION TP SCH (22:39)
[2022-11-24] MEDS ORDERED: AZITHROMYCIN IVPB 500 MG/250 ML BAG IVPB SCH (23:21)
[2022-11-24] MEDS: DEXTROSE 5%-LACTATED RINGERS 1,000 ML IV SCH (23:28)
[2022-11-24] MEDS ORDERED: VANCOMYCIN 1 GM/200 ML PREMIX BAG (RESTRICTED TO ID ONLY) IVPB ONE (23:30)
[2022-11-25] MEDS: NOREPINEPHRINE 0.9 % NACL 8 MG/250 ML BAG IVPB SCH ×2 (00:20→11:51)
[2022-11-25] MEDS ORDERED: AZITHROMYCIN IVPB 500 MG/250 ML BAG IVPB SCH (00:30)
[2022-11-25] MEDS: LEVOTHYROXINE NA 150 MCG TABLET PO SCH (06:38)
[2022-11-25 07:35] LABS: HEMATOCRIT 25.3 % (32.4-45.2); HEMOGLOBIN 9.2 GM/dL (10.7-15.3); MCH 30.3 pg (25.7-33.7); MCHC 36.2 g/dl (32.0-36.0); MEAN CELL VOLUME 83.6 fl (80-96); MEAN PLT VOLUME 8.7 fl (7.5-11.1); PLATELET COUNT 88 10^3/uL (134-434); RBC 3.02 M/mm3 (3.60-5.2); RDW 15.2 % (11.6-15.6); WHITE BLOOD COUNT 3.3 K/mm3 (4.0-10.0)
[2022-11-25 07:45] LABS: INR 1.68 (0.83-1.09); PROTHROMBIN TIME (PATIENT) 19.4 SEC (9.7-13.0)
[2022-11-25 07:48] LABS: ACTIVATED PTT 34.3 SECONDS (25.2-36.5)
[2022-11-25 07:49] LABS: CHLORIDE 105 mmol/L (98-107); SODIUM 139 mmol/L (136-145)
[2022-11-25 07:50] LABS: CALCIUM 7.2 mg/dL (8.5-10.1)
[2022-11-25 07:51] LABS: ALBUMIN 1.9 g/dl (3.4-5.0); BLOOD UREA NITROGEN 41.9 mg/dL (7-18); CO2 26 mmol/L (21-32); GLUCOSE,RANDOM 85 mg/dL (74-106); MAGNESIUM 1.9 mg/dL (1.8-2.4)
[2022-11-25 07:54] LABS: CREATININE 1.8 mg/dL (0.55-1.3); PHOSPHOROUS 4.5 mg/dL (2.5-4.9); SGOT/AST 236 U/L (15-37); SGPT/ALT 210 U/L (13-61)
[2022-11-25 07:55] LABS: BILIRUBIN,TOTAL 1.3 mg/dL (0.2-1)
[2022-11-25 08:21] LABS: ALK PHOS 238 U/L (45-117); ANION GAP 8 MMOL/L (8-16); POTASSIUM 2.8 mmol/L (3.5-5.1)
[2022-11-25] MEDS ORDERED: PIPERACILLIN/TAZOB 2.25 GM 2.25 GM in DEXTROSE 5%-WATER - 50 ML IVPB SCH (09:00)
[2022-11-25] MEDS ORDERED: KCL 10 MEQ IVPB 10 MEQ/100 ML INFUS.BAG IVPB SCH (09:15)
[2022-11-25] MEDS ORDERED: DEXTROSE 10%-WATER - 1,000 ML IV SCH (09:19)
[2022-11-25 09:28] LABS: ANISOCYTOSIS 0; HELMET CELLS 0; HOWELL-JOLLY BODIES 0; MACROCYTOSIS 0; OVALOCYTE 0; ROULEAU 0; SICKELED CELLS 0; TARGET CELLS 0; TEAR DROP CELLS 0; TOXIC GRANULATION 0
[2022-11-25] MEDS: KCL 20 MEQ PREMIX BAG 100 ML IVPB SCH ×3 (09:43→11:55)
[2022-11-25] MEDS: PANTOPRAZOLE SODIUM 40 MG VIAL IVPUSH SCH (09:46)
[2022-11-25] MEDS: MUPIROCIN 2% TOPICAL OINTMENT FOR DECOLONIZATION NS SCH ×2 (09:49→21:47)
[2022-11-25] MEDS ORDERED: AZITHROMYCIN IVPB 500 MG in DEXTROSE 5%-WATER - 250 ML IVPB SCH (10:00)
[2022-11-25] MEDS ORDERED: OCTREOTIDE ACETATE 50 MCG/1 ML - 1 ML VIAL SQ ONE ×3 (10:00→22:00)
[2022-11-25] MEDS ORDERED: CEFTRIAXONE 1 GM in DEXTROSE 5%-WATER - 50 ML IVPB SCH (10:00)
[2022-11-25] MEDS ORDERED: DEXTROSE 50%-WATER 25 GM/50 ML DISP.SYRIN ONE (11:00)
[2022-11-25] MEDS ORDERED: LACTATED RINGERS SOLUTION 1000 ML INFUS.BAG IV ONE (11:29)
[2022-11-25] MEDS ORDERED: DEXTROSE 50%-WATER 25 GM/50 ML DISP.SYRIN IVPUSH ONE (11:30)
[2022-11-25] MEDS: MEROPENEM 1 GM in DEXTROSE 5%-WATER 100 ML IVPB SCH (13:33)
[2022-11-25] MEDS: DEXTROSE 50%-WATER - 25 GM/50 ML VIAL IVPUSH ONE ×2 (13:35→13:50)
[2022-11-25] MEDS ORDERED: TRIMETHOBENZAMIDE HCL 200MG/2ML INJ IM PRN (14:03)
[2022-11-25] MEDS ORDERED: HYDROCORTISONE SOD SUCCINATE 100 MG/2 ML VIAL IVPB SCH (14:30)
[2022-11-25] MEDS ORDERED: POTASSIUM CHLORIDE ORAL LIQUID 20 MEQ/15 ML PO ONE (16:05)
[2022-11-25] MEDS ORDERED: methylPREDNISolone NA SUCC 40 MG/1 ML VIAL IVPUSH ONE (16:07)
[2022-11-25 21:00] LABS: POTASSIUM 4.1 mmol/L (3.5-5.1)
[2022-11-25 21:02] LABS: CALCIUM 7.3 mg/dL (8.5-10.1)
[2022-11-25 21:03] LABS: ALBUMIN 1.8 g/dl (3.4-5.0)
[2022-11-25 21:06] LABS: CREATININE 1.6 mg/dL (0.55-1.3)
[2022-11-25 21:07] LABS: BILIRUBIN,TOTAL 1.2 mg/dL (0.2-1)
[2022-11-25] MEDS: VASOPRESSIN 40 UNITS/100 ML BAG IV SCH (21:46)
[2022-11-25] MEDS: CHLORHEXIDINE GLUCONATE 4% CLEANSER FOR DECOLONIZATION TP SCH (21:46)
[2022-11-26] MEDS: DEXTROSE 5%-LACTATED RINGERS 1,000 ML IV SCH (00:01)
[2022-11-26] MEDS: MEROPENEM 1 GM in DEXTROSE 5%-WATER 100 ML IVPB SCH ×2 (01:21→12:50)
[2022-11-26] MEDS: NOREPINEPHRINE 0.9 % NACL 8 MG/250 ML BAG IVPB SCH (01:22)
[2022-11-26] MEDS ORDERED: DEXTROSE 10%-WATER - 1,000 ML IV SCH (01:49)
[2022-11-26] MEDS ORDERED: ETOMIDATE 40 MG/20 ML VIAL IVPUSH ONE (06:27)
[2022-11-26] MEDS ORDERED: ROCURONIUM BROMIDE 50 MG/5 ML VIAL IV ONE (06:27)
[2022-11-26] MEDS ORDERED: PROPOFOL 1,000,000 MCG/100 ML VIAL IVPB SCH (06:30)
[2022-11-26] MEDS ORDERED: LACTATED RINGERS SOLUTION 1,000 ML/1,000 ML INFUS.BAG IV SCH ×2 (06:30→14:37)
[2022-11-26] MEDS ORDERED: FENTANYL IVPB 500 MCG/100 ML BAG IVPB SCH (06:30)
[2022-11-26] MEDS: VASOPRESSIN 40 UNITS/100 ML BAG IV SCH (06:49)
[2022-11-26] MEDS: LEVOTHYROXINE NA 150 MCG TABLET PO SCH (06:51)
[2022-11-26 07:05] LABS: HEMATOCRIT 28.8 % (32.4-45.2); HEMOGLOBIN 9.8 GM/dL (10.7-15.3); MCH 28.8 pg (25.7-33.7); MCHC 34.1 g/dl (32.0-36.0); MEAN CELL VOLUME 84.6 fl (80-96); MEAN PLT VOLUME 8.3 fl (7.5-11.1); PLATELET COUNT 95 10^3/uL (134-434); RDW 15.7 % (11.6-15.6); WHITE BLOOD COUNT 7.6 K/mm3 (4.0-10.0)
[2022-11-26 07:30] LABS: POTASSIUM 4.1 mmol/L (3.5-5.1)
[2022-11-26 07:32] LABS: ALBUMIN 1.8 g/dl (3.4-5.0); BLOOD UREA NITROGEN 32.5 mg/dL (7-18); CALCIUM 7.4 mg/dL (8.5-10.1)
[2022-11-26 07:35] LABS: CREATININE 1.4 mg/dL (0.55-1.3); PHOSPHOROUS 3.7 mg/dL (2.5-4.9)
[2022-11-26 07:37] LABS: BILIRUBIN,TOTAL 1.2 mg/dL (0.2-1); TOT PROT 5.2 g/dl (6.4-8.2)
[2022-11-26] MEDS ORDERED: PIPERACILLIN/TAZOB 2.25 GM 2.25 GM in DEXTROSE 5%-WATER - 50 ML IVPB SCH (09:00)
[2022-11-26 09:12] LABS: ANISOCYTOSIS 2+; MACROCYTOSIS 1+
[2022-11-26] MEDS: PANTOPRAZOLE SODIUM 40 MG VIAL IVPUSH SCH (09:44)
[2022-11-26] MEDS: MUPIROCIN 2% TOPICAL OINTMENT FOR DECOLONIZATION NS SCH ×2 (09:45→21:50)
[2022-11-26] MEDS ORDERED: POTASSIUM CHLORIDE ORAL LIQUID 20 MEQ/15 ML PO ONE (14:37)
[2022-11-26] MEDS: CHLORHEXIDINE GLUCONATE 4% CLEANSER FOR DECOLONIZATION TP SCH (21:08)
[2022-11-27] MEDS: NOREPINEPHRINE 0.9 % NACL 8 MG/250 ML BAG IVPB SCH (01:36)
[2022-11-27] MEDS: MEROPENEM 1 GM in DEXTROSE 5%-WATER 100 ML IVPB SCH (01:36)
[2022-11-27] MEDS: LEVOTHYROXINE NA 150 MCG TABLET PO SCH (06:42)
[2022-11-27 06:56] LABS: HEMATOCRIT 24.3 % (32.4-45.2); HEMOGLOBIN 8.4 GM/dL (10.7-15.3); MCH 29.2 pg (25.7-33.7); MCHC 34.6 g/dl (32.0-36.0); MEAN CELL VOLUME 84.4 fl (80-96); MEAN PLT VOLUME 8.9 fl (7.5-11.1); PLATELET COUNT 76 10^3/uL (134-434); RBC 2.88 M/mm3 (3.60-5.2); RDW 16.1 % (11.6-15.6)
[2022-11-27 07:14] LABS: POTASSIUM 4.1 mmol/L (3.5-5.1)
[2022-11-27 07:18] LABS: CALCIUM 7.4 mg/dL (8.5-10.1)
[2022-11-27 07:19] LABS: ALBUMIN 1.6 g/dl (3.4-5.0); BLOOD UREA NITROGEN 30.8 mg/dL (7-18); MAGNESIUM 2.1 mg/dL (1.8-2.4)
[2022-11-27 07:22] LABS: CREATININE 0.9 mg/dL (0.55-1.3); PHOSPHOROUS 2.9 mg/dL (2.5-4.9)
[2022-11-27 07:23] LABS: BILIRUBIN,TOTAL 1.2 mg/dL (0.2-1); TOT PROT 4.7 g/dl (6.4-8.2)
[2022-11-27 09:16] LABS: ANISOCYTOSIS 0; MACROCYTOSIS 0
[2022-11-27] MEDS ORDERED: DEXTROSE 5%-1/3 NS - 500 ML IV SCH (09:45)
[2022-11-27] MEDS ORDERED: PANTOPRAZOLE 40 MG TABLET PO SCH (10:00)
[2022-11-27] MEDS ORDERED: CEFAZOLIN SODIUM 2 GM in DEXTROSE 5%-WATER 100 ML IVPB SCH (10:30)
[2022-11-27] MEDS ORDERED: DEXTROSE 5%-0.45% SALINE 1,000 ML IV SCH ×2 (10:45→17:07)
[2022-11-27] MEDS: MUPIROCIN 2% TOPICAL OINTMENT FOR DECOLONIZATION NS SCH (11:36)
[2022-11-27] MEDS ORDERED: OCTREOTIDE ACETATE 50 MCG/1 ML - 1 ML VIAL SQ ONE (17:07)
[2022-11-27] MEDS ORDERED: TRIMETHOBENZAMIDE HCL 200MG/2ML INJ IM PRN (17:07)
[2022-11-27] MEDS ORDERED: DEXTROSE 50%-WATER 25 GM/50 ML DISP.SYRIN IVPUSH ONE (18:19)
[2022-11-27] MEDS: CEFAZOLIN SODIUM 2 GM in DEXTROSE 5%-WATER 100 ML IVPB SCH (18:26)
[2022-11-27] MEDS: VASOPRESSIN 40 UNITS/100 ML BAG IV SCH (21:59)
[2022-11-27] MEDS ORDERED: MUPIROCIN 2% TOPICAL OINTMENT FOR DECOLONIZATION NS SCH (22:00)
[2022-11-27] MEDS ORDERED: CHLORHEXIDINE GLUCONATE 4% CLEANSER FOR DECOLONIZATION TP SCH (22:00)
[2022-11-28] MEDS: CEFAZOLIN SODIUM 2 GM in DEXTROSE 5%-WATER 100 ML IVPB SCH ×3 (02:25→18:18)
[2022-11-28] MEDS: LEVOTHYROXINE NA 150 MCG TABLET PO SCH (06:34)
[2022-11-28 10:43] LABS: HEMATOCRIT 24.7 % (32.4-45.2); HEMOGLOBIN 8.2 GM/dL (10.7-15.3); MCH 28.5 pg (25.7-33.7); MCHC 33.2 g/dl (32.0-36.0); MEAN CELL VOLUME 85.6 fl (80-96); MEAN PLT VOLUME 8.5 fl (7.5-11.1); PLATELET COUNT 55 10^3/uL (134-434); RBC 2.88 M/mm3 (3.60-5.2); RDW 16.2 % (11.6-15.6); WHITE BLOOD COUNT 3.2 K/mm3 (4.0-10.0)
[2022-11-28 10:51] LABS: POTASSIUM 3.6 mmol/L (3.5-5.1)
[2022-11-28 10:54] LABS: ALBUMIN 1.4 g/dl (3.4-5.0); CALCIUM 7.3 mg/dL (8.5-10.1)
[2022-11-28 10:57] LABS: CREATININE 0.8 mg/dL (0.55-1.3)
[2022-11-28 10:59] LABS: BILIRUBIN,TOTAL 0.9 mg/dL (0.2-1)
[2022-11-28 11:01] LABS: TOT PROT 4.3 g/dl (6.4-8.2)
[2022-11-28] MEDS: PANTOPRAZOLE 40 MG TABLET PO SCH (11:26)
[2022-11-28 13:26] LABS: ANISOCYTOSIS 2+; MACROCYTOSIS 0; OVALOCYTE 2+; TARGET CELLS 1+; TEAR DROP CELLS 2+
[2022-11-28] MEDS ORDERED: DEXTROSE 50%-WATER 25 GM/50 ML DISP.SYRIN IVPUSH PRN (14:00)
[2022-11-28] MEDS ORDERED: POTASSIUM CHLORIDE 10 MEQ in DEXTROSE 5%-WATER - 1,000 ML IV SCH (15:00)
[2022-11-28] MEDS ORDERED: ACETAMINOPHEN 325 MG TABLET (FP) PO ONE (20:56)
[2022-11-29] MEDS: CEFAZOLIN SODIUM 2 GM in DEXTROSE 5%-WATER 100 ML IVPB SCH ×3 (02:25→18:36)
[2022-11-29] MEDS: LEVOTHYROXINE NA 150 MCG TABLET PO SCH (06:15)
[2022-11-29] MEDS: PANTOPRAZOLE 40 MG TABLET PO SCH (09:46)
[2022-11-29 11:26] LABS: POTASSIUM 4.2 mmol/L (3.5-5.1)
[2022-11-29 11:32] LABS: ALBUMIN 1.4 g/dl (3.4-5.0); BLOOD UREA NITROGEN 20.9 mg/dL (7-18); CALCIUM 7.3 mg/dL (8.5-10.1)
[2022-11-29 11:35] LABS: CREATININE 0.8 mg/dL (0.55-1.3)
[2022-11-29 11:37] LABS: BILIRUBIN,TOTAL 1.5 mg/dL (0.2-1); TOT PROT 4.6 g/dl (6.4-8.2)
[2022-11-29 11:46] LABS: HEMATOCRIT 25.2 % (32.4-45.2); HEMOGLOBIN 8.3 GM/dL (10.7-15.3); MCH 28.7 pg (25.7-33.7); MCHC 33.1 g/dl (32.0-36.0); MEAN CELL VOLUME 86.6 fl (80-96); RDW 16.2 % (11.6-15.6); WHITE BLOOD COUNT 5.8 K/mm3 (4.0-10.0)
[2022-11-29 11:47] LABS: MEAN PLT VOLUME 9.4 fl (7.5-11.1); PLATELET COUNT 57 10^3/uL (134-434)
[2022-11-29 12:57] LABS: ANISOCYTOSIS 2+; MACROCYTOSIS 0; OVALOCYTE 2+
[2022-11-30] MEDS: CEFAZOLIN SODIUM 2 GM in DEXTROSE 5%-WATER 100 ML IVPB SCH ×3 (02:32→17:23)
[2022-11-30] MEDS: LEVOTHYROXINE NA 150 MCG TABLET PO SCH (06:32)
[2022-11-30] MEDS: PANTOPRAZOLE 40 MG TABLET PO SCH (09:20)
[2022-11-30] MEDS: NYSTATIN 500,000 UNITS/5 ML SUSPENSION PO SCH ×2 (11:40→17:23)
[2022-11-30 14:26] VITALS: BMI 37.3
[2022-11-30] MEDS ORDERED: POLYETHYLENE GLYCOL (HEALTHYLAX) 3350 17 GM PACKET PO ONE (20:45)
[2022-12-01] MEDS: NYSTATIN 500,000 UNITS/5 ML SUSPENSION PO SCH ×5 (00:07→23:01)
[2022-12-01] MEDS: CEFAZOLIN SODIUM 2 GM in DEXTROSE 5%-WATER 100 ML IVPB SCH ×3 (01:01→17:15)
[2022-12-01] MEDS ORDERED: ACETAMINOPHEN 325 MG TABLET (FP) PO ONE (05:38)
[2022-12-01] MEDS: LEVOTHYROXINE NA 150 MCG TABLET PO SCH (06:00)
[2022-12-01] MEDS: POLYETHYLENE GLYCOL (HEALTHYLAX) 3350 17 GM PACKET PO SCH ×2 (09:30→21:03)
[2022-12-01] MEDS: BISACODYL 10 MG SUPP.RECT PR ONE ×2 (09:30)
[2022-12-01] MEDS: PANTOPRAZOLE 40 MG TABLET PO SCH (09:31)
[2022-12-01] MEDS ORDERED: POLYETHYLENE GLYCOL (HEALTHYLAX) 3350 17 GM PACKET PO PRN (10:00)
[2022-12-01] MEDS ORDERED: ACETAMINOPHEN 1000 MG/100 ML BAG IVPB ONE (21:05)
[2022-12-02] MEDS: CEFAZOLIN SODIUM 2 GM in DEXTROSE 5%-WATER 100 ML IVPB SCH ×3 (01:17→17:20)
[2022-12-02] MEDS: NYSTATIN 500,000 UNITS/5 ML SUSPENSION PO SCH ×3 (06:00→17:20)
[2022-12-02] MEDS: LEVOTHYROXINE NA 150 MCG TABLET PO SCH (06:00)
[2022-12-02] MEDS: POLYETHYLENE GLYCOL (HEALTHYLAX) 3350 17 GM PACKET PO SCH ×2 (09:21→22:06)
[2022-12-02] MEDS: PANTOPRAZOLE 40 MG TABLET PO SCH (09:21)
[2022-12-02 10:33] LABS: CHLORIDE 109 mmol/L (98-107); POTASSIUM 3.6 mmol/L (3.5-5.1); SODIUM 143 mmol/L (136-145)
[2022-12-02 10:37] LABS: ALBUMIN 1.4 g/dl (3.4-5.0); ANION GAP 9 MMOL/L (8-16); BLOOD UREA NITROGEN 17.1 mg/dL (7-18); CO2 26 mmol/L (21-32); GLUCOSE,RANDOM 228 mg/dL (74-106)
[2022-12-02 10:40] LABS: CREATININE 0.9 mg/dL (0.55-1.3); SGOT/AST 59 U/L (15-37); SGPT/ALT 16 U/L (13-61)
[2022-12-02 10:41] LABS: BILIRUBIN,TOTAL 1.3 mg/dL (0.2-1); TOT PROT 4.6 g/dl (6.4-8.2)
[2022-12-02 10:45] LABS: ALK PHOS 550 U/L (45-117); CALCIUM 6.9 mg/dL (8.5-10.1)
[2022-12-03] MEDS: NYSTATIN 500,000 UNITS/5 ML SUSPENSION PO SCH ×4 (00:36→17:09)
[2022-12-03] MEDS: CEFAZOLIN SODIUM 2 GM in DEXTROSE 5%-WATER 100 ML IVPB SCH ×3 (02:42→17:10)
[2022-12-03] MEDS: LEVOTHYROXINE NA 150 MCG TABLET PO SCH (06:00)
[2022-12-03] MEDS: PANTOPRAZOLE 40 MG TABLET PO SCH (09:49)
[2022-12-03] MEDS: POLYETHYLENE GLYCOL (HEALTHYLAX) 3350 17 GM PACKET PO SCH (09:50)
[2022-12-03 09:56] LABS: HEMATOCRIT 24.4 % (32.4-45.2); HEMOGLOBIN 8.2 GM/dL (10.7-15.3); MCH 28.7 pg (25.7-33.7); MCHC 33.4 g/dl (32.0-36.0); MEAN CELL VOLUME 85.7 fl (80-96); MEAN PLT VOLUME 9.4 fl (7.5-11.1); PLATELET COUNT 76 10^3/uL (134-434); RBC 2.85 M/mm3 (3.60-5.2); RDW 16.7 % (11.6-15.6); WHITE BLOOD COUNT 8.9 K/mm3 (4.0-10.0)
[2022-12-03 10:47] LABS: ANISOCYTOSIS 0; HELMET CELLS 0; HOWELL-JOLLY BODIES 0; MACROCYTOSIS 0; OVALOCYTE 0; ROULEAU 0; SICKELED CELLS 0; TARGET CELLS 0; TEAR DROP CELLS 0; TOXIC GRANULATION 0
[2022-12-03 14:47] VITALS: RESP 18
[2022-12-03 17:56] VITALS: BP 122/55; PULSE 95; TEMP 98.5
[2022-12-04] MEDS ORDERED: POTASSIUM CHLORIDE TABS 20 MEQ TABLET.ER (FP) PO SCH (10:00)
[2022-12-04] MEDS ORDERED: TORSEMIDE 10 MG TABLET PO SCH (10:00)
== END 2022-12-03 18:21 | DRG 871 ==
LOC: JER 16:41 → JERBED 19:49 → JICU 20:33 → J5S 11-27 17:02
PROVIDERS: ADMIT Internal Medicine; ATTEND Family Medicine
PROC: 06HY33Z Insertion of Infusion Device into Lower Vein, Percutaneous Approach (ICD-10-PCS; principal; 2022-11-24)
PROC: 30233N1 Transfusion of Nonautologous Red Blood Cells into Peripheral Vein, Percutaneous Approach (ICD-10-PCS; 2022-11-24)
DX: A41.50 Gram-negative sepsis, unspecified (principal); J18.9 Pneumonia, unspecified organism; R65.21 Severe sepsis with septic shock; C90.00 Multiple myeloma not having achieved remission; N17.9 Acute kidney failure, unspecified; D61.818 Other pancytopenia; E87.20 Acidosis, unspecified; B37.0 Candidal stomatitis; E11.649 Type 2 diabetes mellitus with hypoglycemia without coma; E87.6 Hypokalemia; E83.19 Other disorders of iron metabolism; T38.3X5A Adverse effect of insulin and oral hypoglycemic [antidiabetic] drugs, initial encounter; E78.5 Hyperlipidemia, unspecified; I10 Essential (primary) hypertension; I25.10 Atherosclerotic heart disease of native coronary artery without angina pectoris; D64.9 Anemia, unspecified
CPT/HCPCS: 0241U-QW; 36415; 36430; 71045-TC-FY; 76700-TC; 80053; 81003; 82533; 82550; 82570; 82728; 82803; 82947; 82962; 83036; 83540; 83550; 83605; 83735; 84100; 84300; 84439; 84443; 84484; 85025; 85610; 85730; 86850; 86900; 86901; 86922; 87040; 87086; 87186; 87635; 87899; 93005; 93010; 97116-GP; 97161-GP; 99291; J0895; P9058

== ENCOUNTER 2022-12-05 15:30 | Emergency (ER) | payer OTHER, MEDICARE ==
[2022-12-05 15:52] VITALS: RESP 18; TEMP 98.4; BMI 31.3
[2022-12-05 16:42] LABS: HEMATOCRIT 25.2 % (32.4-45.2); HEMOGLOBIN 8.6 GM/dL (10.7-15.3); MCH 28.9 pg (25.7-33.7); MEAN PLT VOLUME 9.3 fl (7.5-11.1); PLATELET COUNT 108 10^3/uL (134-434); RBC 2.97 M/mm3 (3.60-5.2); RDW 16.5 % (11.6-15.6); WHITE BLOOD COUNT 7.9 K/mm3 (4.0-10.0)
[2022-12-05 16:48] LABS: INR 1.31 (0.83-1.09); PROTHROMBIN TIME (PATIENT) 15.2 SEC (9.7-13.0)
[2022-12-05 16:51] LABS: ACTIVATED PTT 29.2 SECONDS (25.2-36.5)
[2022-12-05 17:01] LABS: POTASSIUM 3.4 mmol/L (3.5-5.1)
[2022-12-05 17:03] LABS: BLOOD UREA NITROGEN 16.8 mg/dL (7-18); CALCIUM 7.3 mg/dL (8.5-10.1)
[2022-12-05 17:06] LABS: CREATININE 0.9 mg/dL (0.55-1.3)
[2022-12-05 17:08] LABS: BILIRUBIN,TOTAL 0.7 mg/dL (0.2-1); TOT PROT 5.8 g/dl (6.4-8.2)
[2022-12-05 17:13] LABS: ALBUMIN 1.8 g/dl (3.4-5.0)
[2022-12-05 21:04] VITALS: BP 98/74; PULSE 73
== END 2022-12-05 21:38 | disposition home or self-care (01) ==
LOC: JER 15:30
DX: D64.9 Anemia, unspecified (principal); R53.83 Other fatigue
CPT/HCPCS: 36415; 71045-TC-FY; 80053; 82962; 84484; 85025; 85610; 85730; 86850; 86900; 86901; 93005; 93010; 99285-25

== ENCOUNTER 2022-12-15 08:15 | Emergency (ER) | payer OTHER, MEDICARE ==
[2022-12-15 08:39] VITALS: BMI 30.8
[2022-12-15 10:21] LABS: RBC 2.22 M/mm3 (3.60-5.2); WHITE BLOOD COUNT 5.7 K/mm3 (4.0-10.0)
[2022-12-15 10:22] LABS: HEMATOCRIT 19.2 % (32.4-45.2); MCH 29.1 pg (25.7-33.7); MCHC 33.5 g/dl (32.0-36.0); MEAN CELL VOLUME 86.8 fl (80-96); MEAN PLT VOLUME 8.1 fl (7.5-11.1); PLATELET COUNT 168 10^3/uL (134-434); RDW 15.4 % (11.6-15.6)
[2022-12-15 10:23] LABS: HEMOGLOBIN 6.5 GM/dL (10.7-15.3)
[2022-12-15 10:41] LABS: POTASSIUM 3.4 mmol/L (3.5-5.1)
[2022-12-15 10:43] LABS: BLOOD UREA NITROGEN 17.3 mg/dL (7-18); CALCIUM 8.2 mg/dL (8.5-10.1)
[2022-12-15 10:44] LABS: ALBUMIN 2.2 g/dl (3.4-5.0)
[2022-12-15 10:47] LABS: CREATININE 1.2 mg/dL (0.55-1.3)
[2022-12-15 10:48] LABS: BILIRUBIN,TOTAL 0.5 mg/dL (0.2-1); TOT PROT 5.8 g/dl (6.4-8.2)
[2022-12-15 11:32] LABS: ANISOCYTOSIS 0; HELMET CELLS 0; HOWELL-JOLLY BODIES 0; MACROCYTOSIS 0; OVALOCYTE 0; ROULEAU 0; SICKELED CELLS 0; TARGET CELLS 0; TEAR DROP CELLS 0; TOXIC GRANULATION 0
[2022-12-15 14:27] VITALS: RESP 19; TEMP 97.8
[2022-12-15 18:42] LABS: EPI CELLS >36 /uL (0-25.1); HYALINE CASTS 2 /uL (0-3.1); PH,URINE 7.5 (5.0-8.0); URINE APPEARANCE TURBID; URINE BACTERIA >9,000 /uL (0-1359); URINE BILIRUBIN NEGATIVE (NEGATIVE); URINE COLOR YELLOW; URINE GLUCOSE (UA) NEGATIVE (NEGATIVE); URINE KETONE NEGATIVE (NEGATIVE); URINE LEUK ESTERASE 3+ (NEGATIVE); URINE NITRITE POSITIVE (NEGATIVE); URINE PROTEIN 1+ (NEGATIVE); URINE RBC 48 /uL (0-23.9); URINE WBC 3625 /uL (0-25.8)
[2022-12-15 19:35] VITALS: BP 140/56; PULSE 80
== END 2022-12-15 19:45 | disposition home or self-care (01) ==
LOC: JER 08:15
DX: D64.9 Anemia, unspecified (principal)
CPT/HCPCS: 36415; 36430; 36511; 80053; 81003; 82962; 85025; 86850; 86900; 86901; 86922; 87086; 93005; 93010; 99284-25; P9038; P9058

== ENCOUNTER 2023-01-03 07:46 | Day surgery (SDC) | payer OTHER, MEDICARE ==
[2023-01-03] MEDS ORDERED: POTASSIUM CHLORIDE TABS 20 MEQ TABLET.ER (FP) PO ONE (10:00)
[2023-01-03] MEDS ORDERED: FUROSEMIDE 40 MG TABLET (FP) PO ONE (10:00)
[2023-01-03 18:37] LABS: BASO % 0.4 % (0-2.0); EOS % 0.3 % (0-4.5); HEMATOCRIT 24.9 % (32.4-45.2); HEMOGLOBIN 8.5 GM/dL (10.7-15.3); LYMPH % 37.6 % (8-40); MCH 30.7 pg (25.7-33.7); MEAN CELL VOLUME 90.2 fl (80-96); MEAN PLT VOLUME 7.6 fl (7.5-11.1); MONO % 7.3 % (3.8-10.2); NEUT % 54.4 % (42.8-82.8); PLATELET COUNT 168 10^3/uL (134-434); RBC 2.76 M/mm3 (3.60-5.2); RDW 15.4 % (11.6-15.6); WHITE BLOOD COUNT 4.8 K/mm3 (4.0-10.0)
[2023-01-03 19:16] VITALS: BP 94/41; PULSE 83; RESP 18; TEMP 98.5
[2023-01-03] MEDS ORDERED: PORTA CATH FLUSH 10 ML IVPUSH PRN (19:30)
== END 2023-01-03 18:20 | disposition home or self-care (01) ==
LOC: JONCBLOOD 07:46 → J7W 07:48 → JONCBLOOD 18:20
PROVIDERS: ATTEND Internal Medicine Hematology & Oncology
PROC: 30233N1 Transfusion of Nonautologous Red Blood Cells into Peripheral Vein, Percutaneous Approach (ICD-10-PCS; principal; 2023-01-03)
DX: D50.0 Iron deficiency anemia secondary to blood loss (chronic) (principal); C90.00 Multiple myeloma not having achieved remission
CPT/HCPCS: 36415; 36430; 85025; 86850; 86900; 86901; 86922; P9058

== ENCOUNTER 2023-01-17 07:59 | Day surgery (SDC) | payer OTHER, MEDICARE ==
[2023-01-17] MEDS ORDERED: FUROSEMIDE 20 MG TABLET (FP) PO SCH (10:15)
[2023-01-17 17:28] LABS: BASO % 0.4 % (0-2.0); EOS % 0.2 % (0-4.5); HEMATOCRIT 24.8 % (32.4-45.2); HEMOGLOBIN 8.4 GM/dL (10.7-15.3); LYMPH % 49.3 % (8-40); MCH 30.3 pg (25.7-33.7); MCHC 33.7 g/dl (32.0-36.0); MONO % 7.2 % (3.8-10.2); NEUT % 42.9 % (42.8-82.8); PLATELET COUNT 151 10^3/uL (134-434); RBC 2.75 M/mm3 (3.60-5.2); RDW 15.1 % (11.6-15.6); WHITE BLOOD COUNT 3.6 K/mm3 (4.0-10.0)
[2023-01-17 17:40] VITALS: RESP 18
[2023-01-17] MEDS ORDERED: PORTA CATH FLUSH 10 ML IVPUSH PRN (17:40)
[2023-01-17 17:41] VITALS: BP 107/43; PULSE 80; TEMP 97.6
[2023-01-17 18:20] LABS: ANISOCYTOSIS 2+; MACROCYTOSIS 0; ROULEAU 1+; TARGET CELLS 1+
== END 2023-01-17 17:20 | disposition home or self-care (01) ==
LOC: JONCBLOOD 07:59 → J7W 08:02 → JONCBLOOD 17:20
PROVIDERS: ATTEND Internal Medicine Hematology & Oncology
PROC: 30233H1 Transfusion of Nonautologous Whole Blood into Peripheral Vein, Percutaneous Approach (ICD-10-PCS; principal; 2023-01-17)
DX: K55.21 Angiodysplasia of colon with hemorrhage (principal); D50.0 Iron deficiency anemia secondary to blood loss (chronic); C90.00 Multiple myeloma not having achieved remission
CPT/HCPCS: 36415; 36430; 85025; 86850; 86900; 86901; 86922; P9058

== ENCOUNTER 2023-01-30 18:37 | Inpatient (IN) | payer OTHER, MEDICARE ==
[2023-01-30 18:46] VITALS: BMI 28.1
[2023-01-30 20:53] LABS: BASO % 0.4 % (0-2.0); EOS % 0.2 % (0-4.5); HEMATOCRIT 17.8 % (32.4-45.2); LYMPH % 45.3 % (8-40); MCH 30.3 pg (25.7-33.7); MCHC 33.9 g/dl (32.0-36.0); MEAN CELL VOLUME 89.2 fl (80-96); MEAN PLT VOLUME 7.5 fl (7.5-11.1); MONO % 8.3 % (3.8-10.2); NEUT % 45.8 % (42.8-82.8); PLATELET COUNT 113 10^3/uL (134-434); RBC 1.99 M/mm3 (3.60-5.2); WHITE BLOOD COUNT 3.5 K/mm3 (4.0-10.0)
[2023-01-30 20:59] LABS: INR 1.08 (0.83-1.09); PROTHROMBIN TIME (PATIENT) 12.5 SEC (9.7-13.0)
[2023-01-30 21:02] LABS: ACTIVATED PTT 38.6 SECONDS (25.2-36.5)
[2023-01-30 21:03] LABS: POTASSIUM 3.3 mmol/L (3.5-5.1)
[2023-01-30 21:18] LABS: EPI CELLS 7 /uL (0-25.1); HYALINE CASTS 0 /uL (0-3.1); PH,URINE 6.5 (5.0-8.0); URINE APPEARANCE CLOUDY; URINE BACTERIA >9,000 /uL (0-1359); URINE BILIRUBIN 1+ (NEGATIVE); URINE COLOR DK YELLOW; URINE GLUCOSE (UA) NEGATIVE (NEGATIVE); URINE KETONE NEGATIVE (NEGATIVE); URINE LEUK ESTERASE 3+ (NEGATIVE); URINE NITRITE POSITIVE (NEGATIVE); URINE PROTEIN 1+ (NEGATIVE); URINE RBC 67 /uL (0-23.9); URINE WBC 1363 /uL (0-25.8)
[2023-01-30 21:33] LABS: ALBUMIN 2.7 g/dl (3.4-5.0); BILIRUBIN,TOTAL 0.4 mg/dL (0.2-1); BLOOD UREA NITROGEN 33.8 mg/dL (7-18); CALCIUM 12.7 mg/dL (8.5-10.1); CREATININE 1.7 mg/dL (0.55-1.3); PHOSPHOROUS 4.4 mg/dL (2.5-4.9); TOT PROT 6.4 g/dl (6.4-8.2)
[2023-01-30] MEDS ORDERED: SODIUM CHLORIDE 1,000 ML IV STA (21:49)
[2023-01-30] MEDS ORDERED: IMIPENEM/CILASTATIN SODIUM 1,000 MG in SODIUM CHLORIDE 100 ML IVPB ONE (21:58)
[2023-01-31] MEDS ORDERED: POTASSIUM CHLORIDE ORAL LIQUID 20 MEQ/15 ML PO ONE (05:34)
[2023-01-31] MEDS ORDERED: SODIUM CHLORIDE 1,000 ML IV SCH (05:45)
[2023-01-31] MEDS: INSULIN SLIDING SCALE (NOVOLOG) 1 VIAL SQ SCH ×4 (06:36→22:01)
[2023-01-31] MEDS ORDERED: PYRIDOXINE HCL (B-6) 100 MG TABLET PO SCH (10:00)
[2023-01-31] MEDS ORDERED: CEFTRIAXONE 1 GM in DEXTROSE 5%-WATER - 50 ML IVPB SCH (10:00)
[2023-01-31] MEDS ORDERED: PRAMIPEXOLE DIHYDROCHLORIDE 0.25 MG TABLET PO SCH ×2 (10:00)
[2023-01-31 10:11] LABS: HEMATOCRIT 23.4 % (32.4-45.2); MCH 29.9 pg (25.7-33.7); MCHC 34.1 g/dl (32.0-36.0); MEAN CELL VOLUME 87.8 fl (80-96); MEAN PLT VOLUME 7.8 fl (7.5-11.1); PLATELET COUNT 118 10^3/uL (134-434); RBC 2.66 M/mm3 (3.60-5.2); WHITE BLOOD COUNT 3.2 K/mm3 (4.0-10.0)
[2023-01-31 10:17] LABS: RETICULOCYTES 1.04 % (0.5-1.5)
[2023-01-31 10:23] LABS: IRON SERUM 182 ug/dL (50-175); TOTAL IRON BINDING CAPACITY 176 ug/dL (250-450)
[2023-01-31 10:33] LABS: ANISOCYTOSIS 1+; MACROCYTOSIS 1+
[2023-01-31] MEDS: PYRIDOXINE HCL (B-6) 50 MG TABLET (FP) PO SCH (10:55)
[2023-01-31] MEDS: FOLIC ACID 1 MG TABLET (FP) PO SCH (10:55)
[2023-01-31] MEDS: PANTOPRAZOLE 40 MG TABLET PO SCH (10:55)
[2023-01-31 12:03] LABS: POTASSIUM 3.8 mmol/L (3.5-5.1)
[2023-01-31 12:07] LABS: ALBUMIN 2.6 g/dl (3.4-5.0); BLOOD UREA NITROGEN 27.4 mg/dL (7-18); CALCIUM 11.6 mg/dL (8.5-10.1)
[2023-01-31 12:08] LABS: MAGNESIUM 2.9 mg/dL (1.8-2.4)
[2023-01-31 12:10] LABS: CREATININE 1.6 mg/dL (0.55-1.3); PHOSPHOROUS 3.5 mg/dL (2.5-4.9)
[2023-01-31 12:11] LABS: TOT PROT 6.5 g/dl (6.4-8.2)
[2023-01-31 12:12] LABS: BILIRUBIN,TOTAL 0.4 mg/dL (0.2-1)
[2023-01-31] MEDS ORDERED: DEXTROSE 50%-WATER - 25 GM/50 ML VIAL IVPUSH ONE (13:39)
[2023-01-31] MEDS ORDERED: DEXTROSE 50%-WATER 25 GM/50 ML DISP.SYRIN IVPUSH ONE ×3 (14:00→20:44)
[2023-01-31] MEDS ORDERED: DEXTROSE 5%-0.45% SALINE 1,000 ML IV SCH (16:45)
[2023-01-31] MEDS ORDERED: SODIUM CHLORIDE 1,000 ML IV STA ×2 (17:20→18:21)
[2023-01-31 17:40] LABS: HEMATOCRIT 24.3 % (32.4-45.2); HEMOGLOBIN 8.4 GM/dL (10.7-15.3); MCH 30.5 pg (25.7-33.7); MCHC 34.6 g/dl (32.0-36.0); MEAN PLT VOLUME 8.1 fl (7.5-11.1); PLATELET COUNT 106 10^3/uL (134-434); RBC 2.76 M/mm3 (3.60-5.2); RDW 15.3 % (11.6-15.6)
[2023-01-31] MEDS ORDERED: VANCOMYCIN/WATER FOR INJ (PEG) 1,000 MG/200 ML BAG IVPB ONE (17:45)
[2023-01-31] MEDS ORDERED: MEROPENEM 1 GM in DEXTROSE 5%-WATER 100 ML IVPB ONE (17:45)
[2023-01-31 18:13] LABS: LACTIC ACID 3.7 mmol/L (0.4-2.0)
[2023-01-31 18:39] LABS: POTASSIUM 3.2 mmol/L (3.5-5.1)
[2023-01-31 18:40] LABS: CALCIUM 11.2 mg/dL (8.5-10.1)
[2023-01-31 18:41] LABS: ALBUMIN 2.2 g/dl (3.4-5.0); BLOOD UREA NITROGEN 29.6 mg/dL (7-18)
[2023-01-31 18:44] LABS: CREATININE 1.8 mg/dL (0.55-1.3)
[2023-01-31 18:45] LABS: TOT PROT 5.7 g/dl (6.4-8.2)
[2023-01-31 18:46] LABS: BILIRUBIN,TOTAL 0.5 mg/dL (0.2-1)
[2023-01-31 19:13] LABS: ARTERIAL BLD GAS O2 SATURATION 96.3 % (95-98); ARTERIAL BLOOD GAS BASE EXCESS 2.7 mmol/L (-2-2); ARTERIAL BLOOD GAS pH 7.487 (7.350-7.450)
[2023-01-31 19:16] LABS: ALLENS TEST POSITIVE
[2023-01-31] MEDS ORDERED: SODIUM CHLORIDE 250 ML IV STA (20:45)
[2023-02-01] MEDS ORDERED: DEXTROSE 50%-WATER 25 GM/50 ML DISP.SYRIN IVPUSH ONE (00:04)
[2023-02-01] MEDS ORDERED: ACETAMINOPHEN 1000 MG/100 ML BAG IVPB ONE ×2 (01:21→06:15)
[2023-02-01] MEDS: KCL 10 MEQ IVPB 10 MEQ/100 ML INFUS.BAG IVPB SCH ×2 (01:38→02:35)
[2023-02-01] MEDS: DEXTROSE 5%-WATER - 1,000 ML IV SCH ×2 (02:23→17:28)
[2023-02-01] MEDS ORDERED: COSYNTROPIN 0.25 MG VIAL IVPUSH ONE (06:00)
[2023-02-01] MEDS ORDERED: MEROPENEM 1 GM in DEXTROSE 5%-WATER 100 ML IVPB SCH (06:00)
[2023-02-01] MEDS ORDERED: GLIMEPIRIDE 1 MG TABLET PO SCH (07:00)
[2023-02-01] MEDS: INSULIN SLIDING SCALE (NOVOLOG) 1 VIAL SQ SCH ×4 (07:34→21:32)
[2023-02-01 08:11] LABS: BASO % 0.2 % (0-2.0); HEMATOCRIT 21.4 % (32.4-45.2); HEMOGLOBIN 7.3 GM/dL (10.7-15.3); LYMPH % 11.2 % (8-40); MCH 30.8 pg (25.7-33.7); MEAN CELL VOLUME 90.7 fl (80-96); MEAN PLT VOLUME 9.2 fl (7.5-11.1); MONO % 3.5 % (3.8-10.2); NEUT % 85.1 % (42.8-82.8); PLATELET COUNT 95 10^3/uL (134-434); RBC 2.36 M/mm3 (3.60-5.2); RDW 15.3 % (11.6-15.6); WHITE BLOOD COUNT 5.1 K/mm3 (4.0-10.0)
[2023-02-01 08:32] LABS: POTASSIUM 4.3 mmol/L (3.5-5.1)
[2023-02-01 08:40] LABS: BLOOD UREA NITROGEN 31.7 mg/dL (7-18); CALCIUM 10.1 mg/dL (8.5-10.1)
[2023-02-01 08:41] LABS: CREATININE 1.8 mg/dL (0.55-1.3)
[2023-02-01 08:42] LABS: TOT PROT 5.4 g/dl (6.4-8.2)
[2023-02-01 08:43] LABS: BILIRUBIN,TOTAL 0.5 mg/dL (0.2-1)
[2023-02-01] MEDS: LEVOTHYROXINE NA 150 MCG TABLET PO SCH (09:31)
[2023-02-01] MEDS: PYRIDOXINE HCL (B-6) 50 MG TABLET (FP) PO SCH (09:32)
[2023-02-01] MEDS: FOLIC ACID 1 MG TABLET (FP) PO SCH (09:32)
[2023-02-01] MEDS: PANTOPRAZOLE 40 MG TABLET PO SCH (09:32)
[2023-02-01] MEDS: MEROPENEM 1 GM in DEXTROSE 5%-WATER 100 ML IVPB SCH (17:19)
[2023-02-01] MEDS ORDERED: SODIUM CHLORIDE 250 ML IV ONE (17:30)
[2023-02-02] MEDS: DEXTROSE 5%-WATER - 1,000 ML IV SCH (01:45)
[2023-02-02] MEDS: INSULIN SLIDING SCALE (NOVOLOG) 1 VIAL SQ SCH ×4 (06:27→21:24)
[2023-02-02] MEDS: LEVOTHYROXINE NA 150 MCG TABLET PO SCH (06:36)
[2023-02-02 07:37] LABS: POTASSIUM 3.4 mmol/L (3.5-5.1)
[2023-02-02 07:39] LABS: ALBUMIN 1.8 g/dl (3.4-5.0); CALCIUM 9.2 mg/dL (8.5-10.1)
[2023-02-02 07:40] LABS: BLOOD UREA NITROGEN 37.1 mg/dL (7-18)
[2023-02-02 07:42] LABS: CREATININE 1.8 mg/dL (0.55-1.3)
[2023-02-02 07:44] LABS: BILIRUBIN,TOTAL 0.1 mg/dL (0.2-1); TOT PROT 4.7 g/dl (6.4-8.2)
[2023-02-02] MEDS: MEROPENEM 1 GM in DEXTROSE 5%-WATER 100 ML IVPB SCH ×2 (08:08→17:22)
[2023-02-02] MEDS: FOLIC ACID 1 MG TABLET (FP) PO SCH (10:54)
[2023-02-02] MEDS: PANTOPRAZOLE 40 MG TABLET PO SCH (10:54)
[2023-02-02] MEDS: PYRIDOXINE HCL (B-6) 50 MG TABLET (FP) PO SCH (10:54)
[2023-02-02] MEDS: DEXTROSE 5%-0.45% SALINE 1,000 ML IV SCH (12:56)
[2023-02-02] MEDS ORDERED: POTASSIUM CHLORIDE ORAL LIQUID 20 MEQ/15 ML PO ONE (13:15)
[2023-02-02 13:17] LABS: BASO % 0.2 % (0-2.0); EOS % 0.1 % (0-4.5); HEMATOCRIT 20.7 % (32.4-45.2); LYMPH % 22.2 % (8-40); MCH 30.2 pg (25.7-33.7); MCHC 33.7 g/dl (32.0-36.0); MEAN CELL VOLUME 89.6 fl (80-96); MEAN PLT VOLUME 8.7 fl (7.5-11.1); MONO % 4.8 % (3.8-10.2); NEUT % 72.7 % (42.8-82.8); PLATELET COUNT 83 10^3/uL (134-434); RBC 2.31 M/mm3 (3.60-5.2); RDW 15.4 % (11.6-15.6); WHITE BLOOD COUNT 2.9 K/mm3 (4.0-10.0)
[2023-02-02 13:53] LABS: POTASSIUM 3.3 mmol/L (3.5-5.1)
[2023-02-02 13:59] LABS: ALBUMIN 1.8 g/dl (3.4-5.0)
[2023-02-02 14:00] LABS: BLOOD UREA NITROGEN 36.9 mg/dL (7-18); CALCIUM 9.3 mg/dL (8.5-10.1)
[2023-02-02 14:04] LABS: CREATININE 1.7 mg/dL (0.55-1.3)
[2023-02-02 14:05] LABS: TOT PROT 4.9 g/dl (6.4-8.2)
[2023-02-02 14:13] LABS: BILIRUBIN,TOTAL 0.2 mg/dL (0.2-1)
[2023-02-03] MEDS: INSULIN SLIDING SCALE (NOVOLOG) 1 VIAL SQ SCH ×4 (06:18→21:59)
[2023-02-03] MEDS: MEROPENEM 1 GM in DEXTROSE 5%-WATER 100 ML IVPB SCH ×2 (06:36→18:57)
[2023-02-03] MEDS: LEVOTHYROXINE NA 150 MCG TABLET PO SCH (06:37)
[2023-02-03 08:40] LABS: BASO % 0.1 % (0-2.0); EOS % 0.1 % (0-4.5); HEMATOCRIT 21.8 % (32.4-45.2); HEMOGLOBIN 7.3 GM/dL (10.7-15.3); LYMPH % 33.3 % (8-40); MCH 29.6 pg (25.7-33.7); MCHC 33.7 g/dl (32.0-36.0); MEAN CELL VOLUME 87.7 fl (80-96); MEAN PLT VOLUME 8.4 fl (7.5-11.1); MONO % 6.9 % (3.8-10.2); NEUT % 59.6 % (42.8-82.8); PLATELET COUNT 70 10^3/uL (134-434); RBC 2.48 M/mm3 (3.60-5.2); RDW 15.2 % (11.6-15.6); WHITE BLOOD COUNT 2.3 K/mm3 (4.0-10.0)
[2023-02-03 09:02] LABS: POTASSIUM 3.6 mmol/L (3.5-5.1)
[2023-02-03 09:08] LABS: BLOOD UREA NITROGEN 35.9 mg/dL (7-18)
[2023-02-03 09:09] LABS: BILIRUBIN,TOTAL 0.9 mg/dL (0.2-1)
[2023-02-03 09:10] LABS: CALCIUM 8.7 mg/dL (8.5-10.1)
[2023-02-03 09:11] LABS: ALBUMIN 1.7 g/dl (3.4-5.0); CREATININE 1.4 mg/dL (0.55-1.3)
[2023-02-03 09:12] LABS: TOT PROT 4.6 g/dl (6.4-8.2)
[2023-02-03] MEDS: PYRIDOXINE HCL (B-6) 50 MG TABLET (FP) PO SCH (09:24)
[2023-02-03] MEDS: PANTOPRAZOLE 40 MG TABLET PO SCH (09:24)
[2023-02-03] MEDS: FOLIC ACID 1 MG TABLET (FP) PO SCH (09:24)
[2023-02-03] MEDS: DEXTROSE 5%-0.45% SALINE 1,000 ML IV SCH (18:58)
[2023-02-04] MEDS: INSULIN SLIDING SCALE (NOVOLOG) 1 VIAL SQ SCH ×4 (06:31→21:35)
[2023-02-04] MEDS: LEVOTHYROXINE NA 150 MCG TABLET PO SCH (06:32)
[2023-02-04] MEDS: MEROPENEM 1 GM in DEXTROSE 5%-WATER 100 ML IVPB SCH (06:38)
[2023-02-04 08:14] LABS: HEMATOCRIT 22.4 % (32.4-45.2); HEMOGLOBIN 7.6 GM/dL (10.7-15.3); MCH 30.1 pg (25.7-33.7); MCHC 33.9 g/dl (32.0-36.0); MEAN CELL VOLUME 88.8 fl (80-96); MEAN PLT VOLUME 8.8 fl (7.5-11.1); PLATELET COUNT 65 10^3/uL (134-434); RBC 2.53 M/mm3 (3.60-5.2); RDW 15.3 % (11.6-15.6); WHITE BLOOD COUNT 2.1 K/mm3 (4.0-10.0)
[2023-02-04 08:33] LABS: POTASSIUM 3.3 mmol/L (3.5-5.1)
[2023-02-04 08:39] LABS: BLOOD UREA NITROGEN 29.6 mg/dL (7-18)
[2023-02-04 08:40] LABS: ALBUMIN 1.7 g/dl (3.4-5.0); CALCIUM 8.4 mg/dL (8.5-10.1)
[2023-02-04 08:43] LABS: BILIRUBIN,TOTAL 0.5 mg/dL (0.2-1)
[2023-02-04 08:44] LABS: TOT PROT 4.6 g/dl (6.4-8.2)
[2023-02-04 09:01] LABS: ANISOCYTOSIS 0; MACROCYTOSIS 0
[2023-02-04 09:05] VITALS: RESP 18
[2023-02-04] MEDS: FOLIC ACID 1 MG TABLET (FP) PO SCH (09:16)
[2023-02-04] MEDS: PYRIDOXINE HCL (B-6) 50 MG TABLET (FP) PO SCH (09:16)
[2023-02-04] MEDS: PANTOPRAZOLE 40 MG TABLET PO SCH (09:16)
[2023-02-04] MEDS ORDERED: INSULIN (NOVOLOG) ASPART 100 UNITS/ML 10ML VIAL ONE (12:06)
[2023-02-04] MEDS ORDERED: POTASSIUM CHLORIDE ORAL LIQUID 20 MEQ/15 ML PO ONE (12:20)
[2023-02-04] MEDS: KCL 10 MEQ IVPB 10 MEQ/100 ML INFUS.BAG IVPB SCH ×3 (13:57→16:13)
[2023-02-04 18:07] LABS: FREE KAPPA,SERUM 380.6 mg/L (3.3-19.4)
[2023-02-05] MEDS: INSULIN SLIDING SCALE (NOVOLOG) 1 VIAL SQ SCH ×2 (06:06→11:10)
[2023-02-05] MEDS: LEVOTHYROXINE NA 150 MCG TABLET PO SCH (06:24)
[2023-02-05 08:16] LABS: POTASSIUM 3.8 mmol/L (3.5-5.1)
[2023-02-05 08:18] LABS: CALCIUM 7.9 mg/dL (8.5-10.1)
[2023-02-05 08:19] LABS: ALBUMIN 1.8 g/dl (3.4-5.0); BLOOD UREA NITROGEN 19.2 mg/dL (7-18); MAGNESIUM 1.7 mg/dL (1.8-2.4)
[2023-02-05 08:20] LABS: HEMATOCRIT 24.1 % (32.4-45.2); HEMOGLOBIN 8.1 GM/dL (10.7-15.3); MCH 29.8 pg (25.7-33.7); MCHC 33.4 g/dl (32.0-36.0); MEAN CELL VOLUME 89.2 fl (80-96); MEAN PLT VOLUME 8.9 fl (7.5-11.1); PLATELET COUNT 65 10^3/uL (134-434); RDW 15.1 % (11.6-15.6); WHITE BLOOD COUNT 2.6 K/mm3 (4.0-10.0)
[2023-02-05 08:22] LABS: CREATININE 0.8 mg/dL (0.55-1.3)
[2023-02-05 08:23] LABS: TOT PROT 4.6 g/dl (6.4-8.2)
[2023-02-05 08:37] LABS: BILIRUBIN,TOTAL 0.4 mg/dL (0.2-1)
[2023-02-05 09:08] LABS: ANISOCYTOSIS 0; MACROCYTOSIS 0
[2023-02-05] MEDS: PANTOPRAZOLE 40 MG TABLET PO SCH (09:23)
[2023-02-05] MEDS: FOLIC ACID 1 MG TABLET (FP) PO SCH (09:23)
[2023-02-05] MEDS: PYRIDOXINE HCL (B-6) 50 MG TABLET (FP) PO SCH (09:24)
[2023-02-05 10:14] VITALS: BP 143/71; PULSE 90; TEMP 97.9
[2023-02-05] MEDS ORDERED: PORTA CATH FLUSH 10 ML IVPUSH PRN (10:49)
== END 2023-02-05 14:30 | disposition home health service (06) | DRG 871 ==
LOC: JER 18:37 → JERBED 22:37 → J4W 01-31 02:45
PROVIDERS: ADMIT Student in an Organized Health Care Education/Training Program; ATTEND Family Medicine
PROC: 30233N1 Transfusion of Nonautologous Red Blood Cells into Peripheral Vein, Percutaneous Approach (ICD-10-PCS; principal; 2023-01-31)
DX: A41.89 Other specified sepsis (principal); G93.41 Metabolic encephalopathy; N17.9 Acute kidney failure, unspecified; N39.0 Urinary tract infection, site not specified; D61.9 Aplastic anemia, unspecified; C90.00 Multiple myeloma not having achieved remission; K92.2 Gastrointestinal hemorrhage, unspecified; E03.9 Hypothyroidism, unspecified; E78.5 Hyperlipidemia, unspecified; I12.9 Hypertensive chronic kidney disease with stage 1 through stage 4 chronic kidney disease, or unspecified chronic kidney disease; E11.22 Type 2 diabetes mellitus with diabetic chronic kidney disease; N18.9 Chronic kidney disease, unspecified; E83.52 Hypercalcemia; E11.649 Type 2 diabetes mellitus with hypoglycemia without coma; K57.90 Diverticulosis of intestine, part unspecified, without perforation or abscess without bleeding; G25.81 Restless legs syndrome; H40.9 Unspecified glaucoma; E87.6 Hypokalemia; R79.89 Other specified abnormal findings of blood chemistry; E83.119 Hemochromatosis, unspecified; K55.20 Angiodysplasia of colon without hemorrhage; E88.09 Other disorders of plasma-protein metabolism, not elsewhere classified
CPT/HCPCS: 36415; 36430; 36600; 70450-TC; 71045-TC-FY; 77074-TC-FY; 80053; 81003; 82272; 82436; 82525; 82533; 82570; 82784; 82803; 82962; 83010; 83540; 83550; 83605; 83615; 83735; 83883; 83935; 83970; 84100; 84133; 84155; 84165; 84300; 84484; 85025; 85027; 85045; 85610; 85730; 86850; 86900; 86901; 86922; 87040; 87086; 87186; 93005; 93010; 93971; 97116-GP; 97162-GP; 99285-25; J0834; P9058

== ENCOUNTER 2023-02-20 08:38 | Day surgery (SDC) | payer OTHER, MEDICARE ==
[2023-02-20] MEDS ORDERED: MAGNESIUM SULFATE IN WATER 2 GM/50 ML IVPB IVPB ONE (09:30)
[2023-02-20] MEDS ORDERED: FUROSEMIDE 40 MG TABLET (FP) PO ONE (09:30)
[2023-02-20 17:06] VITALS: RESP 20; TEMP 98.1
[2023-02-20] MEDS ORDERED: PORTA CATH FLUSH 10 ML IVPUSH PRN (17:06)
[2023-02-20 18:55] LABS: BASO % 0.1 % (0-2.0); HEMATOCRIT 23.9 % (32.4-45.2); LYMPH % 41.2 % (8-40); MCH 29.2 pg (25.7-33.7); MCHC 33.7 g/dl (32.0-36.0); MEAN CELL VOLUME 86.7 fl (80-96); MEAN PLT VOLUME 8.1 fl (7.5-11.1); MONO % 8.8 % (3.8-10.2); NEUT % 49.9 % (42.8-82.8); PLATELET COUNT 111 10^3/uL (134-434); RBC 2.75 M/mm3 (3.60-5.2); WHITE BLOOD COUNT 2.4 K/mm3 (4.0-10.0)
[2023-02-25 07:59] VITALS: BP 103/61; PULSE 99
== END 2023-02-20 18:55 | disposition home or self-care (01) ==
LOC: JONCBLOOD 08:38 → J7W 08:39 → JONCBLOOD 18:55
PROVIDERS: ATTEND Internal Medicine Hematology & Oncology
PROC: 30233N1 Transfusion of Nonautologous Red Blood Cells into Peripheral Vein, Percutaneous Approach (ICD-10-PCS; principal; 2023-02-20)
DX: C90.00 Multiple myeloma not having achieved remission (principal); K55.21 Angiodysplasia of colon with hemorrhage
CPT/HCPCS: 36415; 36430; 85025; 86850; 86900; 86901; 86922; P9058

== ENCOUNTER 2023-03-07 07:53 | Day surgery (SDC) | payer OTHER, MEDICARE ==
[2023-03-07] MEDS ORDERED: [UNRECOGNIZED DRUG - OTHER] IM ONE (10:00)
[2023-03-07] MEDS ORDERED: FUROSEMIDE 40 MG/4 ML INJECTABLE VIAL IVPUSH ONE ×2 (11:00→14:30)
[2023-03-07 18:23] VITALS: BP 96/40; PULSE 95; RESP 18; TEMP 97.8
[2023-03-07] MEDS ORDERED: PORTA CATH FLUSH 10 ML IVPUSH PRN (18:23)
[2023-03-07 19:54] LABS: BASO % 0.1 % (0-2.0); HEMATOCRIT 22.6 % (32.4-45.2); HEMOGLOBIN 8.1 GM/dL (10.7-15.3); LYMPH % 40.2 % (8-40); MCH 29.7 pg (25.7-33.7); MCHC 35.7 g/dl (32.0-36.0); MEAN CELL VOLUME 83.1 fl (80-96); MEAN PLT VOLUME 7.8 fl (7.5-11.1); MONO % 8.6 % (3.8-10.2); NEUT % 51.1 % (42.8-82.8); PLATELET COUNT 102 10^3/uL (134-434); RBC 2.72 M/mm3 (3.60-5.2); RDW 15.1 % (11.6-15.6); WHITE BLOOD COUNT 3.1 K/mm3 (4.0-10.0)
[2023-03-07 20:05] LABS: POTASSIUM 3.3 mmol/L (3.5-5.1)
[2023-03-07 20:07] LABS: BLOOD UREA NITROGEN 20.8 mg/dL (7-18)
[2023-03-07 20:09] LABS: ALBUMIN 2.7 g/dl (3.4-5.0)
[2023-03-07 20:11] LABS: CREATININE 1.3 mg/dL (0.55-1.3)
[2023-03-07 20:12] LABS: BILIRUBIN,TOTAL 1.6 mg/dL (0.2-1); TOT PROT 6.1 g/dl (6.4-8.2)
== END 2023-03-07 19:00 | disposition home or self-care (01) ==
LOC: JONCBLOOD 07:53 → J7W 07:54 → JONCBLOOD 19:00
PROVIDERS: ATTEND Internal Medicine Hematology & Oncology
PROC: 30233N1 Transfusion of Nonautologous Red Blood Cells into Peripheral Vein, Percutaneous Approach (ICD-10-PCS; principal; 2023-03-07)
PROC: 3E023GC Introduction of Other Therapeutic Substance into Muscle, Percutaneous Approach (ICD-10-PCS; 2023-03-07)
PROC: 3E033GC Introduction of Other Therapeutic Substance into Peripheral Vein, Percutaneous Approach (ICD-10-PCS; 2023-03-07)
DX: K55.21 Angiodysplasia of colon with hemorrhage (principal)
CPT/HCPCS: 36415; 36430; 80053; 85025; 86850; 86900; 86901; 86922; J0895; P9058

== ENCOUNTER 2023-03-10 10:33 | Day surgery (SDC) | payer OTHER, MEDICARE ==
[2023-03-10 14:12] VITALS: BP 112/50; PULSE 94; RESP 18; TEMP 98
== END 2023-03-10 11:00 | disposition home or self-care (01) ==
LOC: JONCNONCHE 10:33 → J7W 10:34 → JONCNONCHE 11:00
PROVIDERS: ATTEND Internal Medicine Hematology & Oncology
PROC: 3E023GC Introduction of Other Therapeutic Substance into Muscle, Percutaneous Approach (ICD-10-PCS; principal; 2023-03-10)
DX: K55.21 Angiodysplasia of colon with hemorrhage (principal)
CPT/HCPCS: 96372; J0895

== ENCOUNTER 2023-03-11 17:45 | Day surgery (SDC) | payer OTHER, MEDICARE ==
[2023-03-11] MEDS ORDERED: [UNRECOGNIZED DRUG - OTHER] IM ONE (18:00)
[2023-03-11 18:28] VITALS: BP 112/67; PULSE 86; RESP 18; TEMP 97.7
== END 2023-03-11 18:37 | disposition home or self-care (01) ==
LOC: JONCNONCHE 17:45 → J7W 17:45 → JONCNONCHE 18:37
PROVIDERS: ATTEND Internal Medicine Hematology & Oncology
PROC: 3E023GC Introduction of Other Therapeutic Substance into Muscle, Percutaneous Approach (ICD-10-PCS; principal; 2023-03-11)
DX: K55.21 Angiodysplasia of colon with hemorrhage (principal)
CPT/HCPCS: 96372; J0895

== ENCOUNTER 2023-03-24 14:20 | Day surgery (SDC) | payer OTHER, MEDICARE ==
[2023-03-24 14:54] VITALS: BP 108/60; PULSE 111; RESP 18; TEMP 97.8
== END 2023-03-24 14:40 | disposition home or self-care (01) ==
LOC: J7W 14:20 → JONCNONCHE 14:20
PROVIDERS: ATTEND Internal Medicine Hematology & Oncology
PROC: 3E013GC Introduction of Other Therapeutic Substance into Subcutaneous Tissue, Percutaneous Approach (ICD-10-PCS; principal; 2023-03-24)
DX: K55.21 Angiodysplasia of colon with hemorrhage (principal)
CPT/HCPCS: 96372; J0895

== ENCOUNTER 2023-03-25 14:44 | Day surgery (SDC) | payer OTHER, MEDICARE ==
[2023-03-25 17:18] VITALS: BP 114/51; PULSE 88; RESP 18; TEMP 97.6
== END 2023-03-25 15:00 | disposition home or self-care (01) ==
LOC: J7W 14:44 → JONCNONCHE 14:44
PROVIDERS: ATTEND Internal Medicine Hematology & Oncology
DX: K55.21 Angiodysplasia of colon with hemorrhage (principal)
CPT/HCPCS: 96372; J0895

== ENCOUNTER 2023-03-26 17:45 | Day surgery (SDC) | payer OTHER, MEDICARE ==
[2023-03-26 18:56] VITALS: BP 126/62; PULSE 102; RESP 18; TEMP 97.9
== END 2023-03-26 17:55 | disposition home or self-care (01) ==
LOC: JONCNONCHE 17:45 → J7W 17:45 → JONCNONCHE 17:55
PROVIDERS: ATTEND Internal Medicine Hematology & Oncology
PROC: 3E013GC Introduction of Other Therapeutic Substance into Subcutaneous Tissue, Percutaneous Approach (ICD-10-PCS; principal; 2023-03-26)
DX: K55.21 Angiodysplasia of colon with hemorrhage (principal)
CPT/HCPCS: 96372; J0895

== ENCOUNTER 2023-03-27 17:30 | Day surgery (SDC) | payer OTHER, MEDICARE ==
[2023-03-27 17:59] VITALS: BP 117/50; PULSE 88; RESP 20; TEMP 97.7
== END 2023-03-27 18:00 | disposition home or self-care (01) ==
LOC: JONCNONCHE 17:30 → J7W 17:30 → JONCNONCHE 18:00
PROVIDERS: ATTEND Internal Medicine Hematology & Oncology
PROC: 3E013GC Introduction of Other Therapeutic Substance into Subcutaneous Tissue, Percutaneous Approach (ICD-10-PCS; principal; 2023-03-27)
DX: K55.21 Angiodysplasia of colon with hemorrhage (principal)
CPT/HCPCS: 96372; J0895

== ENCOUNTER 2023-03-28 13:00 | Day surgery (SDC) | payer OTHER, MEDICARE ==
[2023-03-28 18:32] VITALS: BP 109/56; PULSE 86; RESP 20; TEMP 98
== END 2023-03-28 13:20 | disposition home or self-care (01) ==
LOC: JONCNONCHE 13:00 → J7W 13:00 → JONCNONCHE 13:20
PROVIDERS: ATTEND Internal Medicine Hematology & Oncology
PROC: 3E013GC Introduction of Other Therapeutic Substance into Subcutaneous Tissue, Percutaneous Approach (ICD-10-PCS; principal; 2023-03-28)
DX: K55.21 Angiodysplasia of colon with hemorrhage (principal)
CPT/HCPCS: 96372; J0895

== ENCOUNTER 2023-03-31 10:54 | Day surgery (SDC) | payer OTHER, MEDICARE ==
[2023-03-31 16:46] VITALS: BP 122/54; PULSE 84; RESP 18; TEMP 98.1
== END 2023-03-31 10:55 | disposition home or self-care (01) ==
LOC: JONCNONCHE 10:54 → J7W 10:54 → JONCNONCHE 10:55
PROVIDERS: ATTEND Internal Medicine Hematology & Oncology
PROC: 3E013GC Introduction of Other Therapeutic Substance into Subcutaneous Tissue, Percutaneous Approach (ICD-10-PCS; principal; 2023-03-31)
DX: K55.21 Angiodysplasia of colon with hemorrhage (principal)
CPT/HCPCS: 96372; J0895

== ENCOUNTER 2023-04-03 08:02 | Day surgery (SDC) | payer OTHER, MEDICARE ==
[2023-04-03] MEDS ORDERED: ONDANSETRON INJECTION 8 MG in SODIUM CHLORIDE 50 ML IVPB ONE (09:30)
[2023-04-03] MEDS ORDERED: FUROSEMIDE 40 MG/4 ML INJECTABLE VIAL IVPUSH ONE (11:00)
[2023-04-03] MEDS ORDERED: PORTA CATH FLUSH 10 ML IVPUSH PRN ×3 (16:16→17:35)
[2023-04-03 16:19] VITALS: TEMP 97.8
[2023-04-03 17:30] LABS: BASO % 0.1 % (0-2.0); HEMATOCRIT 25.1 % (32.4-45.2); HEMOGLOBIN 8.9 GM/dL (10.7-15.3); LYMPH % 33.8 % (8-40); MCH 29.4 pg (25.7-33.7); MCHC 35.6 g/dl (32.0-36.0); MEAN CELL VOLUME 82.5 fl (80-96); MEAN PLT VOLUME 7.3 fl (7.5-11.1); MONO % 5.6 % (3.8-10.2); NEUT % 60.5 % (42.8-82.8); PLATELET COUNT 117 10^3/uL (134-434); RBC 3.04 M/mm3 (3.60-5.2); RDW 15.7 % (11.6-15.6); WHITE BLOOD COUNT 4.3 K/mm3 (4.0-10.0)
[2023-04-03 17:35] VITALS: BP 112/55; PULSE 81; RESP 18
== END 2023-04-03 17:30 | disposition home or self-care (01) ==
LOC: JONCBLOOD 08:02 → J7W 08:03 → JONCBLOOD 17:30
PROVIDERS: ATTEND Internal Medicine Hematology & Oncology
PROC: 30233N1 Transfusion of Nonautologous Red Blood Cells into Peripheral Vein, Percutaneous Approach (ICD-10-PCS; principal; 2023-04-03)
DX: K55.21 Angiodysplasia of colon with hemorrhage (principal)
CPT/HCPCS: 36415; 36430; 82140; 85025; 86850; 86900; 86901; 86922; P9058

== ENCOUNTER 2023-04-18 07:41 | Day surgery (SDC) | payer OTHER, MEDICARE ==
[2023-04-18] MEDS ORDERED: FUROSEMIDE 20 MG TABLET (FP) PO ONE (10:00)
[2023-04-18] MEDS ORDERED: PORTA CATH FLUSH 10 ML IVPUSH PRN (14:54)
[2023-04-18 17:45] VITALS: BP 112/57; PULSE 70; RESP 18; TEMP 97.4
[2023-04-18 17:51] LABS: BASO % 0.1 % (0-2.0); HEMATOCRIT 25.5 % (32.4-45.2); HEMOGLOBIN 8.6 GM/dL (10.7-15.3); LYMPH % 38.9 % (8-40); MCH 28.7 pg (25.7-33.7); MCHC 33.6 g/dl (32.0-36.0); MEAN CELL VOLUME 85.4 fl (80-96); MEAN PLT VOLUME 7.5 fl (7.5-11.1); MONO % 7.5 % (3.8-10.2); NEUT % 53.5 % (42.8-82.8); PLATELET COUNT 98 10^3/uL (134-434); RBC 2.99 M/mm3 (3.60-5.2); RDW 14.5 % (11.6-15.6); WHITE BLOOD COUNT 3.2 K/mm3 (4.0-10.0)
== END 2023-04-18 17:35 | disposition home or self-care (01) ==
LOC: JONCBLOOD 07:41 → J7W 07:43 → JONCBLOOD 17:35
PROVIDERS: ATTEND Internal Medicine Hematology & Oncology
PROC: 30233N1 Transfusion of Nonautologous Red Blood Cells into Peripheral Vein, Percutaneous Approach (ICD-10-PCS; principal; 2023-04-18)
DX: K55.21 Angiodysplasia of colon with hemorrhage (principal)
CPT/HCPCS: 36415; 36430; 85025; 86850; 86900; 86901; 86922; P9058

== ENCOUNTER 2023-05-04 10:52 | Emergency (ER) | payer OTHER, MEDICARE ==
[2023-05-04 10:56] VITALS: BP 147/52; PULSE 91; RESP 18; TEMP 97.3; BMI 28.1
== END 2023-05-04 12:49 | disposition home or self-care (01) ==
LOC: JER 10:52 → JERFT 10:52
DX: S09.90XA Unspecified injury of head, initial encounter (principal); R22.0 Localized swelling, mass and lump, head; W01.198A Fall on same level from slipping, tripping and stumbling with subsequent striking against other object, initial encounter
CPT/HCPCS: 70450-TC; 72125-TC; 99284-25

== ENCOUNTER 2023-05-07 08:04 | Day surgery (SDC) | payer OTHER, MEDICARE ==
[2023-05-07] MEDS ORDERED: FUROSEMIDE 40 MG/4 ML INJECTABLE VIAL IVPUSH ONE (11:00)
[2023-05-07] MEDS ORDERED: POTASSIUM CHLORIDE ORAL LIQUID 20 MEQ/15 ML PO ONE (11:00)
[2023-05-07 17:42] LABS: BASO % 0.1 % (0-2.0); HEMATOCRIT 25.1 % (32.4-45.2); HEMOGLOBIN 8.5 GM/dL (10.7-15.3); LYMPH % 38.6 % (8-40); MCH 28.6 pg (25.7-33.7); MCHC 33.9 g/dl (32.0-36.0); MEAN CELL VOLUME 84.3 fl (80-96); MEAN PLT VOLUME 7.2 fl (7.5-11.1); MONO % 6.2 % (3.8-10.2); NEUT % 55.1 % (42.8-82.8); PLATELET COUNT 92 10^3/uL (134-434); RBC 2.97 M/mm3 (3.60-5.2); RDW 14.9 % (11.6-15.6); WHITE BLOOD COUNT 3.3 K/mm3 (4.0-10.0)
[2023-05-07 17:54] VITALS: RESP 18
[2023-05-07] MEDS ORDERED: PORTA CATH FLUSH 10 ML IVPUSH PRN (17:55)
[2023-05-07 17:56] VITALS: BP 124/46; PULSE 87; TEMP 97.8
== END 2023-05-07 18:00 | disposition home or self-care (01) ==
LOC: JONCBLOOD 08:04 → J7W 08:05 → JONCBLOOD 18:00
PROVIDERS: ATTEND Internal Medicine Hematology & Oncology
PROC: 30233N1 Transfusion of Nonautologous Red Blood Cells into Peripheral Vein, Percutaneous Approach (ICD-10-PCS; principal; 2023-05-07)
DX: K55.21 Angiodysplasia of colon with hemorrhage (principal)
CPT/HCPCS: 36415; 36430; 85025; 86850; 86900; 86901; 86922; P9058

== ENCOUNTER 2023-05-23 07:44 | Day surgery (SDC) | payer OTHER, MEDICARE ==
[2023-05-23] MEDS ORDERED: FUROSEMIDE 40 MG TABLET (FP) PO ONE (10:00)
[2023-05-23 16:43] VITALS: RESP 18
[2023-05-23 17:29] VITALS: BP 107/44; PULSE 67; TEMP 97.6
[2023-05-23] MEDS ORDERED: PORTA CATH FLUSH 10 ML IVPUSH PRN (17:29)
[2023-05-23 17:36] LABS: BASO % 0.2 % (0-2.0); EOS % 0.1 % (0-4.5); HEMATOCRIT 24.7 % (32.4-45.2); HEMOGLOBIN 8.5 GM/dL (10.7-15.3); LYMPH % 37.6 % (8-40); MCHC 34.3 g/dl (32.0-36.0); MEAN CELL VOLUME 84.6 fl (80-96); MEAN PLT VOLUME 7.6 fl (7.5-11.1); MONO % 7.7 % (3.8-10.2); NEUT % 54.4 % (42.8-82.8); PLATELET COUNT 105 10^3/uL (134-434); RBC 2.92 M/mm3 (3.60-5.2); RDW 14.3 % (11.6-15.6); WHITE BLOOD COUNT 3.5 K/mm3 (4.0-10.0)
== END 2023-05-23 17:15 | disposition home or self-care (01) ==
LOC: JONCBLOOD 07:44 → J7W 07:45 → JONCBLOOD 17:15
PROVIDERS: ATTEND Internal Medicine Hematology & Oncology
PROC: 30233N1 Transfusion of Nonautologous Red Blood Cells into Peripheral Vein, Percutaneous Approach (ICD-10-PCS; principal; 2023-05-23)
DX: K55.21 Angiodysplasia of colon with hemorrhage (principal)
CPT/HCPCS: 36415; 36430; 85025; 86850; 86900; 86901; 86922; P9058

== ENCOUNTER 2023-06-02 09:30 | Day surgery (SDC) | payer OTHER, MEDICARE ==
[2023-06-02] MEDS ORDERED: [UNRECOGNIZED DRUG - OTHER] IM ONE (10:00)
[2023-06-02 14:39] VITALS: BP 125/51; PULSE 75; RESP 18; TEMP 97.6
== END 2023-06-02 10:45 | disposition home or self-care (01) ==
LOC: JONCNONCHE 09:30 → J7W 09:30 → JONCNONCHE 10:45
PROVIDERS: ATTEND Internal Medicine Hematology & Oncology
DX: K55.21 Angiodysplasia of colon with hemorrhage (principal)
CPT/HCPCS: 96372; J0895

== ENCOUNTER 2023-06-03 10:47 | Day surgery (SDC) | payer OTHER, MEDICARE ==
[2023-06-03 14:29] VITALS: BP 129/57; PULSE 91; RESP 18; TEMP 97.7
== END 2023-06-03 11:45 | disposition home or self-care (01) ==
LOC: J7W 10:47 → JONCNONCHE 10:47
PROVIDERS: ATTEND Internal Medicine Hematology & Oncology
PROC: 3E013GC Introduction of Other Therapeutic Substance into Subcutaneous Tissue, Percutaneous Approach (ICD-10-PCS; principal; 2023-06-03)
DX: K55.21 Angiodysplasia of colon with hemorrhage (principal)
CPT/HCPCS: 96372; J0895

== ENCOUNTER 2023-06-04 11:41 | Day surgery (SDC) | payer OTHER, MEDICARE ==
[2023-06-04 17:20] VITALS: BP 145/63; PULSE 76; RESP 18; TEMP 97.4
== END 2023-06-04 12:05 | disposition home or self-care (01) ==
LOC: J7W 11:41 → JONCNONCHE 11:41
PROVIDERS: ATTEND Internal Medicine Hematology & Oncology
PROC: 3E013GC Introduction of Other Therapeutic Substance into Subcutaneous Tissue, Percutaneous Approach (ICD-10-PCS; principal; 2023-06-04)
DX: K55.21 Angiodysplasia of colon with hemorrhage (principal)
CPT/HCPCS: 96372; J0895

== ENCOUNTER 2023-06-05 07:42 | Day surgery (SDC) | payer OTHER, MEDICARE ==
[2023-06-05] MEDS ORDERED: [UNRECOGNIZED DRUG - OTHER] IM ONE (10:00)
[2023-06-05] MEDS ORDERED: FUROSEMIDE 20 MG TABLET (FP) PO ONE (10:15)
[2023-06-05 11:32] VITALS: BP 100/45; PULSE 71; RESP 20; TEMP 98
[2023-06-05] MEDS ORDERED: PORTA CATH FLUSH 10 ML IVPUSH PRN (16:30)
[2023-06-05 18:47] LABS: BASO % 0.3 % (0-2.0); HEMATOCRIT 27.7 % (32.4-45.2); HEMOGLOBIN 9.4 GM/dL (10.7-15.3); LYMPH % 41.7 % (8-40); MCHC 34.1 g/dl (32.0-36.0); MEAN CELL VOLUME 85.2 fl (80-96); MEAN PLT VOLUME 7.6 fl (7.5-11.1); MONO % 7.2 % (3.8-10.2); NEUT % 50.8 % (42.8-82.8); PLATELET COUNT 109 10^3/uL (134-434); RBC 3.25 M/mm3 (3.60-5.2); RDW 14.4 % (11.6-15.6); WHITE BLOOD COUNT 3.4 K/mm3 (4.0-10.0)
== END 2023-06-05 18:17 | disposition home or self-care (01) ==
LOC: JONCNONCHE 07:42 → J7W 07:43 → JONCNONCHE 18:17
PROVIDERS: ATTEND Internal Medicine Hematology & Oncology
PROC: 30233N1 Transfusion of Nonautologous Red Blood Cells into Peripheral Vein, Percutaneous Approach (ICD-10-PCS; principal; 2023-06-05)
DX: K55.21 Angiodysplasia of colon with hemorrhage (principal)
CPT/HCPCS: 36415; 36430; 85025; 86850; 86900; 86901; 86922; J0895; P9058

== ENCOUNTER 2023-06-06 12:34 | Day surgery (SDC) | payer OTHER, MEDICARE ==
[2023-06-06 17:35] VITALS: BP 107/42; PULSE 67; RESP 18; TEMP 97.7
== END 2023-06-06 13:00 | disposition home or self-care (01) ==
LOC: JONCNONCHE 12:34
PROVIDERS: ATTEND Internal Medicine Hematology & Oncology
PROC: 3E013GC Introduction of Other Therapeutic Substance into Subcutaneous Tissue, Percutaneous Approach (ICD-10-PCS; principal; 2023-06-06)
DX: E83.111 Hemochromatosis due to repeated red blood cell transfusions (principal); K55.21 Angiodysplasia of colon with hemorrhage
CPT/HCPCS: 96372; J0895

== ENCOUNTER 2023-06-09 12:15 | Day surgery (SDC) | payer OTHER, MEDICARE ==
[2023-06-09 16:59] VITALS: BP 101/46; PULSE 79; RESP 20; TEMP 98
== END 2023-06-09 12:30 | disposition home or self-care (01) ==
LOC: JONCNONCHE 12:15 → J7W 12:15 → JONCNONCHE 12:30
PROVIDERS: ATTEND Internal Medicine Hematology & Oncology
DX: E83.111 Hemochromatosis due to repeated red blood cell transfusions (principal); K55.21 Angiodysplasia of colon with hemorrhage
CPT/HCPCS: 96372; J0895

== ENCOUNTER 2023-06-10 14:59 | Day surgery (SDC) | payer OTHER, MEDICARE ==
[2023-06-10 18:06] VITALS: BP 128/46; PULSE 96; RESP 20; TEMP 97.6
== END 2023-06-10 15:05 | disposition home or self-care (01) ==
LOC: J7W 14:59 → JONCNONCHE 14:59
PROVIDERS: ATTEND Internal Medicine Hematology & Oncology
PROC: 3E013GC Introduction of Other Therapeutic Substance into Subcutaneous Tissue, Percutaneous Approach (ICD-10-PCS; principal; 2023-06-10)
DX: E83.111 Hemochromatosis due to repeated red blood cell transfusions (principal); K55.21 Angiodysplasia of colon with hemorrhage
CPT/HCPCS: 96372; J0895

== ENCOUNTER 2023-06-11 12:32 | Day surgery (SDC) | payer OTHER, MEDICARE ==
[2023-06-11 16:42] VITALS: BP 135/57; PULSE 80; RESP 18; TEMP 97.7
== END 2023-06-11 14:10 | disposition home or self-care (01) ==
LOC: JONCNONCHE 12:32 → J7W 12:33 → JONCNONCHE 14:10
PROVIDERS: ATTEND Internal Medicine Hematology & Oncology
DX: E83.111 Hemochromatosis due to repeated red blood cell transfusions (principal); K55.21 Angiodysplasia of colon with hemorrhage
CPT/HCPCS: 96372; J0895

== ENCOUNTER 2023-06-12 11:00 | Day surgery (SDC) | payer OTHER, MEDICARE ==
[2023-06-12 17:27] VITALS: BP 133/54; PULSE 87; RESP 20; TEMP 97.7
== END 2023-06-12 11:30 | disposition home or self-care (01) ==
LOC: JONCNONCHE 11:00
PROVIDERS: ATTEND Internal Medicine Hematology & Oncology
DX: E83.111 Hemochromatosis due to repeated red blood cell transfusions (principal); K55.21 Angiodysplasia of colon with hemorrhage
CPT/HCPCS: 96372; J0895

== ENCOUNTER 2023-06-13 14:46 | Day surgery (SDC) | payer OTHER, MEDICARE ==
[2023-06-13 15:57] VITALS: BP 158/41; PULSE 82; RESP 18; TEMP 97.6
== END 2023-06-13 15:35 | disposition home or self-care (01) ==
LOC: J7W 14:46 → JONCNONCHE 14:46
PROVIDERS: ATTEND Internal Medicine Hematology & Oncology
PROC: 3E013GC Introduction of Other Therapeutic Substance into Subcutaneous Tissue, Percutaneous Approach (ICD-10-PCS; principal; 2023-06-13)
DX: E83.111 Hemochromatosis due to repeated red blood cell transfusions (principal); K55.21 Angiodysplasia of colon with hemorrhage
CPT/HCPCS: 96372; J0895

== ENCOUNTER 2023-06-17 09:39 | Day surgery (SDC) | payer OTHER, MEDICARE ==
[2023-06-17] MEDS ORDERED: [UNRECOGNIZED DRUG - OTHER] IM ONE (10:00)
[2023-06-17 16:15] VITALS: BP 126/55; PULSE 81; RESP 18; TEMP 97.7
== END 2023-06-17 12:45 | disposition home or self-care (01) ==
LOC: JONCNONCHE 09:39 → J7W 09:44 → JONCNONCHE 12:45
PROVIDERS: ATTEND Internal Medicine Hematology & Oncology
PROC: 3E013GC Introduction of Other Therapeutic Substance into Subcutaneous Tissue, Percutaneous Approach (ICD-10-PCS; principal; 2023-06-17)
DX: E83.111 Hemochromatosis due to repeated red blood cell transfusions (principal); K55.21 Angiodysplasia of colon with hemorrhage
CPT/HCPCS: 96372; J0895

== ENCOUNTER 2023-06-18 10:02 | Day surgery (SDC) | payer OTHER, MEDICARE ==
[2023-06-18] MEDS ORDERED: FUROSEMIDE 20 MG TABLET (FP) PO ONE (11:30)
[2023-06-18] MEDS ORDERED: PORTA CATH FLUSH 10 ML IVPUSH PRN (16:59)
[2023-06-18 20:32] LABS: BASO % 0.2 % (0-2.0); EOS % 0.1 % (0-4.5); HEMATOCRIT 28.9 % (32.4-45.2); HEMOGLOBIN 9.7 GM/dL (10.7-15.3); LYMPH % 36.8 % (8-40); MCH 28.8 pg (25.7-33.7); MCHC 33.5 g/dl (32.0-36.0); MONO % 8.5 % (3.8-10.2); NEUT % 54.4 % (42.8-82.8); PLATELET COUNT 111 10^3/uL (134-434); RBC 3.36 M/mm3 (3.60-5.2); WHITE BLOOD COUNT 3.2 K/mm3 (4.0-10.0)
[2023-06-19 07:59] VITALS: RESP 16
[2023-06-19 08:02] VITALS: BP 120/50; PULSE 70; TEMP 97.8
== END 2023-06-18 19:30 | disposition home or self-care (01) ==
LOC: JONCNONCHE 10:02 → J7W 10:03 → JONCNONCHE 19:30
PROVIDERS: ATTEND Internal Medicine Hematology & Oncology
PROC: 3E01305 Introduction of Other Antineoplastic into Subcutaneous Tissue, Percutaneous Approach (ICD-10-PCS; principal; 2023-06-18)
PROC: 30233N1 Transfusion of Nonautologous Red Blood Cells into Peripheral Vein, Percutaneous Approach (ICD-10-PCS; 2023-06-18)
DX: K55.21 Angiodysplasia of colon with hemorrhage (principal); E83.111 Hemochromatosis due to repeated red blood cell transfusions
CPT/HCPCS: 36415; 36430; 85025; 86850; 86900; 86901; 86922; 96372; J0895; P9038; P9058

== ENCOUNTER 2023-06-19 12:45 | Day surgery (SDC) | payer OTHER, MEDICARE ==
[2023-06-19 16:28] VITALS: BP 127/63; PULSE 91; RESP 18; TEMP 97.5
== END 2023-06-19 12:50 | disposition home or self-care (01) ==
LOC: JONCNONCHE 12:45 → J7W 12:45 → JONCNONCHE 12:50
PROVIDERS: ATTEND Internal Medicine Hematology & Oncology
PROC: 3E013GC Introduction of Other Therapeutic Substance into Subcutaneous Tissue, Percutaneous Approach (ICD-10-PCS; principal; 2023-06-19)
DX: E83.111 Hemochromatosis due to repeated red blood cell transfusions (principal); K55.21 Angiodysplasia of colon with hemorrhage
CPT/HCPCS: 96372; J0895

== ENCOUNTER 2023-06-20 10:27 | Day surgery (SDC) | payer OTHER, MEDICARE ==
[2023-06-20 14:36] VITALS: BP 125/66; PULSE 78; RESP 18; TEMP 97.5
== END 2023-06-20 10:40 | disposition home or self-care (01) ==
LOC: JONCNONCHE 10:27 → J7W 10:28 → JONCNONCHE 10:40
PROVIDERS: ATTEND Internal Medicine Hematology & Oncology
PROC: 3E013GC Introduction of Other Therapeutic Substance into Subcutaneous Tissue, Percutaneous Approach (ICD-10-PCS; principal; 2023-06-20)
DX: E83.111 Hemochromatosis due to repeated red blood cell transfusions (principal); K55.21 Angiodysplasia of colon with hemorrhage
CPT/HCPCS: 96372; J0895

== ENCOUNTER 2023-06-24 14:21 | Day surgery (SDC) | payer OTHER, MEDICARE ==
[2023-06-24 18:33] VITALS: BP 107/51; PULSE 85; RESP 20; TEMP 97.3
== END 2023-06-24 14:50 | disposition home or self-care (01) ==
LOC: JONCNONCHE 14:21 → J7W 14:24 → JONCNONCHE 14:50
PROVIDERS: ATTEND Internal Medicine Hematology & Oncology
PROC: 3E013GC Introduction of Other Therapeutic Substance into Subcutaneous Tissue, Percutaneous Approach (ICD-10-PCS; principal; 2023-06-24)
DX: E83.111 Hemochromatosis due to repeated red blood cell transfusions (principal); K55.21 Angiodysplasia of colon with hemorrhage
CPT/HCPCS: 96372; J0895

== ENCOUNTER 2023-06-25 17:40 | Day surgery (SDC) | payer OTHER, MEDICARE ==
[2023-06-25 18:20] VITALS: BP 113/49; PULSE 91; RESP 20; TEMP 98.1
== END 2023-06-25 18:15 | disposition home or self-care (01) ==
LOC: J7W 17:40 → JONCNONCHE 17:40
PROVIDERS: ATTEND Internal Medicine Hematology & Oncology
DX: E83.111 Hemochromatosis due to repeated red blood cell transfusions (principal); K55.21 Angiodysplasia of colon with hemorrhage
CPT/HCPCS: 96372; J0895

== ENCOUNTER 2023-06-26 17:30 | Day surgery (SDC) | payer OTHER, MEDICARE ==
[2023-06-26 18:22] VITALS: BP 105/52; PULSE 92; RESP 20; TEMP 97.8
== END 2023-06-26 17:50 | disposition home or self-care (01) ==
LOC: JONCNONCHE 17:30
PROVIDERS: ATTEND Internal Medicine Hematology & Oncology
PROC: 3E013GC Introduction of Other Therapeutic Substance into Subcutaneous Tissue, Percutaneous Approach (ICD-10-PCS; principal; 2023-06-26)
DX: E83.111 Hemochromatosis due to repeated red blood cell transfusions (principal); K55.21 Angiodysplasia of colon with hemorrhage
CPT/HCPCS: 96372; J0895

== ENCOUNTER 2023-06-27 12:25 | Day surgery (SDC) | payer OTHER, MEDICARE ==
[2023-06-27 16:26] VITALS: BP 109/49; PULSE 83; RESP 20; TEMP 98.1
== END 2023-06-27 12:45 | disposition home or self-care (01) ==
LOC: J7W 12:25 → JONCCHEMO 12:25
PROVIDERS: ATTEND Internal Medicine Hematology & Oncology
PROC: 3E013GC Introduction of Other Therapeutic Substance into Subcutaneous Tissue, Percutaneous Approach (ICD-10-PCS; principal; 2023-06-27)
DX: E83.111 Hemochromatosis due to repeated red blood cell transfusions (principal); K55.21 Angiodysplasia of colon with hemorrhage
CPT/HCPCS: 96372; J0895

== ENCOUNTER 2023-06-30 13:23 | Day surgery (SDC) | payer OTHER, MEDICARE ==
[2023-06-30 13:48] VITALS: BP 114/48; PULSE 84; RESP 18; TEMP 97.8
== END 2023-06-30 13:45 | disposition home or self-care (01) ==
LOC: JONCCHEMO 13:23 → J7W 13:27 → JONCCHEMO 13:45
PROVIDERS: ATTEND Internal Medicine Hematology & Oncology
PROC: 3E013GC Introduction of Other Therapeutic Substance into Subcutaneous Tissue, Percutaneous Approach (ICD-10-PCS; principal; 2023-06-30)
DX: E83.111 Hemochromatosis due to repeated red blood cell transfusions (principal); K55.21 Angiodysplasia of colon with hemorrhage
CPT/HCPCS: 96372; J0895

== ENCOUNTER 2023-07-01 10:01 | Day surgery (SDC) | payer OTHER, MEDICARE ==
[2023-07-01 17:38] VITALS: BP 110/54; PULSE 82; RESP 18; TEMP 97.8
== END 2023-07-01 10:15 | disposition home or self-care (01) ==
LOC: J7W 10:01 → JONCNONCHE 10:01
PROVIDERS: ATTEND Internal Medicine Hematology & Oncology
DX: E83.111 Hemochromatosis due to repeated red blood cell transfusions (principal); K55.21 Angiodysplasia of colon with hemorrhage
CPT/HCPCS: 96372; J0895

== ENCOUNTER 2023-07-02 13:15 | Day surgery (SDC) | payer OTHER, MEDICARE ==
[2023-07-02 15:07] VITALS: BP 118/55; PULSE 92; RESP 18; TEMP 97.7
== END 2023-07-02 13:20 | disposition home or self-care (01) ==
LOC: JONCNONCHE 13:15 → J7W 13:16 → JONCNONCHE 13:20
PROVIDERS: ATTEND Internal Medicine Hematology & Oncology
PROC: 3E013GC Introduction of Other Therapeutic Substance into Subcutaneous Tissue, Percutaneous Approach (ICD-10-PCS; principal; 2023-07-02)
DX: E83.111 Hemochromatosis due to repeated red blood cell transfusions (principal); K55.21 Angiodysplasia of colon with hemorrhage
CPT/HCPCS: 96372; J0895

== ENCOUNTER 2023-07-03 13:00 | Day surgery (SDC) | payer OTHER, MEDICARE ==
[2023-07-03 16:02] VITALS: BP 110/56; PULSE 82; RESP 18; TEMP 97.7
== END 2023-07-03 13:20 | disposition home or self-care (01) ==
LOC: JONCNONCHE 13:00 → J7W 13:00 → JONCNONCHE 13:20
PROVIDERS: ATTEND Internal Medicine Hematology & Oncology
PROC: 3E013GC Introduction of Other Therapeutic Substance into Subcutaneous Tissue, Percutaneous Approach (ICD-10-PCS; principal; 2023-07-03)
DX: E83.111 Hemochromatosis due to repeated red blood cell transfusions (principal); K55.21 Angiodysplasia of colon with hemorrhage
CPT/HCPCS: 96372; J0895

== ENCOUNTER 2023-07-04 13:20 | Day surgery (SDC) | payer OTHER, MEDICARE ==
[2023-07-04 16:58] VITALS: BP 121/60; PULSE 87; RESP 18; TEMP 97.2
== END 2023-07-04 13:30 | disposition home or self-care (01) ==
LOC: JONCNONCHE 13:20 → J7W 13:20 → JONCNONCHE 13:30
PROVIDERS: ATTEND Internal Medicine Hematology & Oncology
PROC: 3E013GC Introduction of Other Therapeutic Substance into Subcutaneous Tissue, Percutaneous Approach (ICD-10-PCS; principal; 2023-07-04)
DX: E83.111 Hemochromatosis due to repeated red blood cell transfusions (principal); K55.21 Angiodysplasia of colon with hemorrhage
CPT/HCPCS: 96372; J0895

== ENCOUNTER 2023-07-08 14:20 | Day surgery (SDC) | payer OTHER, MEDICARE ==
[2023-07-08 17:40] VITALS: BP 117/57; PULSE 57; RESP 18; TEMP 98
== END 2023-07-08 14:40 | disposition home or self-care (01) ==
LOC: JONCNONCHE 14:20 → J7W 14:20 → JONCNONCHE 14:40
PROVIDERS: ATTEND Internal Medicine Hematology & Oncology
DX: E83.111 Hemochromatosis due to repeated red blood cell transfusions (principal); K55.21 Angiodysplasia of colon with hemorrhage
CPT/HCPCS: 96372; J0895

== ENCOUNTER 2023-07-09 13:48 | Day surgery (SDC) | payer OTHER, MEDICARE ==
[2023-07-09 16:09] VITALS: BP 131/37; PULSE 87; RESP 20; TEMP 97.7
== END 2023-07-09 14:25 | disposition home or self-care (01) ==
LOC: JONCNONCHE 13:48 → J7W 13:58 → JONCNONCHE 14:25
PROVIDERS: ATTEND Internal Medicine Hematology & Oncology
PROC: 3E013GC Introduction of Other Therapeutic Substance into Subcutaneous Tissue, Percutaneous Approach (ICD-10-PCS; principal; 2023-07-09)
DX: E83.111 Hemochromatosis due to repeated red blood cell transfusions (principal); K55.21 Angiodysplasia of colon with hemorrhage
CPT/HCPCS: 96372; J0895

== ENCOUNTER 2023-07-10 07:47 | Day surgery (SDC) | payer OTHER, MEDICARE ==
[2023-07-10] MEDS ORDERED: FUROSEMIDE 40 MG/4 ML INJECTABLE VIAL IVPUSH ONE (10:00)
[2023-07-10] MEDS ORDERED: [UNRECOGNIZED DRUG - OTHER] IM ONE (10:00)
[2023-07-10] MEDS ORDERED: FUROSEMIDE 40 MG/4 ML INJECTABLE VIAL ONE (13:50)
[2023-07-10 17:49] VITALS: BP 97/46; PULSE 75; RESP 18; TEMP 97.6
[2023-07-10] MEDS ORDERED: PORTA CATH FLUSH 10 ML IVPUSH PRN (17:49)
[2023-07-10 18:14] LABS: BASO % 0.3 % (0-2.0); EOS % 0.1 % (0-4.5); HEMATOCRIT 25.8 % (32.4-45.2); HEMOGLOBIN 8.8 GM/dL (10.7-15.3); LYMPH % 34.3 % (8-40); MCH 28.9 pg (25.7-33.7); MCHC 34.3 g/dl (32.0-36.0); MEAN CELL VOLUME 84.3 fl (80-96); MEAN PLT VOLUME 7.5 fl (7.5-11.1); MONO % 7.6 % (3.8-10.2); NEUT % 57.7 % (42.8-82.8); PLATELET COUNT 120 10^3/uL (134-434); RBC 3.06 M/mm3 (3.60-5.2); RDW 13.8 % (11.6-15.6); WHITE BLOOD COUNT 3.8 K/mm3 (4.0-10.0)
== END 2023-07-10 18:00 | disposition home or self-care (01) ==
LOC: JONCNONCHE 07:47 → J7W 07:47 → JONCNONCHE 18:00
PROVIDERS: ATTEND Internal Medicine Hematology & Oncology
PROC: 3E013GC Introduction of Other Therapeutic Substance into Subcutaneous Tissue, Percutaneous Approach (ICD-10-PCS; principal; 2023-07-10)
PROC: 30233N1 Transfusion of Nonautologous Red Blood Cells into Peripheral Vein, Percutaneous Approach (ICD-10-PCS; 2023-07-10)
DX: K55.21 Angiodysplasia of colon with hemorrhage (principal); E83.111 Hemochromatosis due to repeated red blood cell transfusions
CPT/HCPCS: 36415; 36430; 85025; 86850; 86900; 86901; 86922; 96372; J0895; P9038; P9058

== ENCOUNTER 2023-07-11 10:00 | Day surgery (SDC) | payer OTHER, MEDICARE ==
[2023-07-11 16:48] VITALS: BP 123/52; PULSE 91; RESP 16; TEMP 98.4
== END 2023-07-11 11:00 | disposition home or self-care (01) ==
LOC: J7W 10:00 → JONCNONCHE 10:00
PROVIDERS: ATTEND Internal Medicine Hematology & Oncology
PROC: 3E013GC Introduction of Other Therapeutic Substance into Subcutaneous Tissue, Percutaneous Approach (ICD-10-PCS; principal; 2023-07-11)
DX: E83.111 Hemochromatosis due to repeated red blood cell transfusions (principal); K55.21 Angiodysplasia of colon with hemorrhage
CPT/HCPCS: 96372; J0895

== ENCOUNTER → 2023-07-14 17:45 | Day surgery (SDC) | payer OTHER, MEDICARE ==
[2023-07-14 18:35] VITALS: BP 132/62; PULSE 93; RESP 18; TEMP 97.7
== END | disposition home or self-care (01) ==
LOC: JONCNONCHE 17:45 → J7W 17:45
PROVIDERS: ATTEND Internal Medicine Hematology & Oncology
PROC: 3E013GC Introduction of Other Therapeutic Substance into Subcutaneous Tissue, Percutaneous Approach (ICD-10-PCS; principal; 2023-07-14)
DX: E83.111 Hemochromatosis due to repeated red blood cell transfusions (principal); K55.21 Angiodysplasia of colon with hemorrhage
CPT/HCPCS: 96372; J0895

== ENCOUNTER 2023-07-15 17:18 | Day surgery (SDC) | payer OTHER, MEDICARE ==
[~2023-07-15 17:18] MED LIST changes: +[UNRECOGNIZED DRUG - OTHER] IM ONE; -[UNRECOGNIZED DRUG - OTHER] IM ONE
[2023-07-15 17:36] VITALS: BP 106/47; PULSE 90; RESP 18; TEMP 97.4
== END 2023-07-15 17:58 | disposition home or self-care (01) ==
LOC: JONCNONCHE 17:18 → J7W 17:20 → JONCNONCHE 17:58
PROVIDERS: ATTEND Internal Medicine Hematology & Oncology
PROC: 3E013GC Introduction of Other Therapeutic Substance into Subcutaneous Tissue, Percutaneous Approach (ICD-10-PCS; principal; 2023-07-15)
DX: E83.111 Hemochromatosis due to repeated red blood cell transfusions (principal); K55.21 Angiodysplasia of colon with hemorrhage
CPT/HCPCS: 96372; J0895

== ENCOUNTER 2023-07-16 17:25 | Day surgery (SDC) | payer OTHER, MEDICARE ==
[2023-07-16 18:12] VITALS: BP 119/68; PULSE 90; RESP 20; TEMP 98.5
== END 2023-07-16 18:00 | disposition home or self-care (01) ==
LOC: JONCNONCHE 17:25
PROVIDERS: ATTEND Internal Medicine Hematology & Oncology
PROC: 3E013GC Introduction of Other Therapeutic Substance into Subcutaneous Tissue, Percutaneous Approach (ICD-10-PCS; principal; 2023-07-16)
DX: E83.111 Hemochromatosis due to repeated red blood cell transfusions (principal); K55.21 Angiodysplasia of colon with hemorrhage
CPT/HCPCS: 96372; J0895

== ENCOUNTER 2023-07-17 17:30 | Day surgery (SDC) | payer OTHER, MEDICARE ==
[2023-07-17 17:55] VITALS: BP 99/45; PULSE 22; RESP 87; TEMP 98.1
== END 2023-07-17 17:45 | disposition home or self-care (01) ==
LOC: JONCNONCHE 17:30 → J7W 17:30 → JONCNONCHE 17:45
PROVIDERS: ATTEND Internal Medicine Hematology & Oncology
PROC: 3E013GC Introduction of Other Therapeutic Substance into Subcutaneous Tissue, Percutaneous Approach (ICD-10-PCS; principal; 2023-07-17)
DX: E83.111 Hemochromatosis due to repeated red blood cell transfusions (principal); K55.21 Angiodysplasia of colon with hemorrhage
CPT/HCPCS: 96372; J0895

== ENCOUNTER 2023-07-18 12:30 | Day surgery (SDC) | payer OTHER, MEDICARE ==
[~2023-07-18 12:30] MED LIST changes: +[UNRECOGNIZED DRUG - OTHER] IM ONE; -[UNRECOGNIZED DRUG - OTHER] IM ONE
[2023-07-18 17:01] VITALS: BP 120/60; RESP 18
[2023-07-18 17:03] VITALS: PULSE 81; TEMP 97.5
== END 2023-07-18 13:15 | disposition home or self-care (01) ==
LOC: JONCNONCHE 12:30 → J7W 13:10 → JONCNONCHE 13:15
PROVIDERS: ATTEND Internal Medicine Hematology & Oncology
PROC: 3E013GC Introduction of Other Therapeutic Substance into Subcutaneous Tissue, Percutaneous Approach (ICD-10-PCS; principal; 2023-07-18)
DX: E83.111 Hemochromatosis due to repeated red blood cell transfusions (principal); K55.21 Angiodysplasia of colon with hemorrhage
CPT/HCPCS: 96372; J0895

== ENCOUNTER 2023-07-21 08:45 | Day surgery (SDC) | payer OTHER, MEDICARE ==
[2023-07-21] MEDS ORDERED: [UNRECOGNIZED DRUG - OTHER] IM ONE (10:00)
[2023-07-21 13:57] VITALS: BP 118/48; PULSE 87; RESP 20; TEMP 97.6
== END 2023-07-21 09:45 | disposition home or self-care (01) ==
LOC: JONCNONCHE 08:45 → J7W 08:46 → JONCNONCHE 09:45
PROVIDERS: ATTEND Internal Medicine Hematology & Oncology
PROC: 3E013GC Introduction of Other Therapeutic Substance into Subcutaneous Tissue, Percutaneous Approach (ICD-10-PCS; principal; 2023-07-21)
DX: E83.111 Hemochromatosis due to repeated red blood cell transfusions (principal); K55.21 Angiodysplasia of colon with hemorrhage
CPT/HCPCS: 96365; J0895

== ENCOUNTER 2023-07-22 17:25 | Day surgery (SDC) | payer OTHER, MEDICARE ==
[~2023-07-22 17:25] MED LIST changes: +[UNRECOGNIZED DRUG - OTHER] IM ONE; -[UNRECOGNIZED DRUG - OTHER] IM ONE
[2023-07-22 18:46] VITALS: BP 127/51; PULSE 92; RESP 20; TEMP 97.5
== END 2023-07-22 18:50 | disposition home or self-care (01) ==
LOC: JONCNONCHE 17:25
PROVIDERS: ATTEND Internal Medicine Hematology & Oncology
PROC: 3E013GC Introduction of Other Therapeutic Substance into Subcutaneous Tissue, Percutaneous Approach (ICD-10-PCS; principal; 2023-07-22)
DX: E83.111 Hemochromatosis due to repeated red blood cell transfusions (principal); K55.21 Angiodysplasia of colon with hemorrhage
CPT/HCPCS: 96372; J0895

== ENCOUNTER 2023-07-23 07:47 | Day surgery (SDC) | payer OTHER, MEDICARE ==
[2023-07-23] MEDS ORDERED: FUROSEMIDE 40 MG/4 ML INJECTABLE VIAL IVPUSH ONE (09:15)
[2023-07-23] MEDS ORDERED: [UNRECOGNIZED DRUG - OTHER] IM ONE (10:00)
[2023-07-23] MEDS ORDERED: PORTA CATH FLUSH 10 ML IVPUSH PRN (15:21)
[2023-07-23 15:24] VITALS: RESP 16
[2023-07-23 15:26] VITALS: BP 96/45; PULSE 66; TEMP 97.1
[2023-07-23 18:34] LABS: BASO % 0.2 % (0-2.0); EOS % 0.1 % (0-4.5); HEMATOCRIT 27.6 % (32.4-45.2); HEMOGLOBIN 9.2 GM/dL (10.7-15.3); LYMPH % 31.5 % (8-40); MCH 27.5 pg (25.7-33.7); MCHC 33.5 g/dl (32.0-36.0); MEAN PLT VOLUME 7.3 fl (7.5-11.1); MONO % 6.1 % (3.8-10.2); NEUT % 62.1 % (42.8-82.8); PLATELET COUNT 120 10^3/uL (134-434); RBC 3.36 M/mm3 (3.60-5.2); WHITE BLOOD COUNT 3.6 K/mm3 (4.0-10.0)
== END 2023-07-23 18:00 | disposition home or self-care (01) ==
LOC: JONCNONCHE 07:47 → J7W 07:48 → JONCNONCHE 18:00
PROVIDERS: ATTEND Internal Medicine Hematology & Oncology
PROC: 3E013GC Introduction of Other Therapeutic Substance into Subcutaneous Tissue, Percutaneous Approach (ICD-10-PCS; principal; 2023-07-23)
PROC: 30233N1 Transfusion of Nonautologous Red Blood Cells into Peripheral Vein, Percutaneous Approach (ICD-10-PCS; 2023-07-23)
DX: C90.00 Multiple myeloma not having achieved remission (principal); K55.21 Angiodysplasia of colon with hemorrhage; E83.111 Hemochromatosis due to repeated red blood cell transfusions
CPT/HCPCS: 36415; 36430; 85025; 86850; 86900; 86901; 86922; 96372; J0895; P9038; P9058

== ENCOUNTER 2023-07-24 10:24 | Day surgery (SDC) | payer OTHER, MEDICARE ==
[2023-07-24 13:57] VITALS: BP 124/45; PULSE 76; RESP 20; TEMP 98
== END 2023-07-24 10:30 | disposition home or self-care (01) ==
LOC: J7W 10:24 → JONCNONCHE 10:24
PROVIDERS: ATTEND Internal Medicine Hematology & Oncology
PROC: 3E013GC Introduction of Other Therapeutic Substance into Subcutaneous Tissue, Percutaneous Approach (ICD-10-PCS; principal; 2023-07-24)
DX: E83.111 Hemochromatosis due to repeated red blood cell transfusions (principal); K55.21 Angiodysplasia of colon with hemorrhage
CPT/HCPCS: 96372; J0895

== ENCOUNTER 2023-07-25 11:30 | Day surgery (SDC) | payer OTHER, MEDICARE ==
[2023-07-25 13:54] VITALS: BP 133/42; PULSE 78; RESP 20; TEMP 97.7
== END 2023-07-25 12:50 | disposition home or self-care (01) ==
LOC: J7W 11:30 → JONCNONCHE 11:30
PROVIDERS: ATTEND Internal Medicine Hematology & Oncology
PROC: 3E013GC Introduction of Other Therapeutic Substance into Subcutaneous Tissue, Percutaneous Approach (ICD-10-PCS; principal; 2023-07-25)
DX: E83.111 Hemochromatosis due to repeated red blood cell transfusions (principal); K55.21 Angiodysplasia of colon with hemorrhage
CPT/HCPCS: 96372; J0895

== ENCOUNTER 2023-07-28 13:09 | Day surgery (SDC) | payer OTHER, MEDICARE ==
[2023-07-28] MEDS: [UNRECOGNIZED DRUG - OTHER] IM ONE (13:06)
[2023-07-28 15:10] VITALS: BP 104/52; PULSE 87; RESP 18; TEMP 97.8
== END 2023-07-28 13:30 | disposition home or self-care (01) ==
LOC: JONCNONCHE 13:09 → J7W 13:10 → JONCNONCHE 13:30
PROVIDERS: ATTEND Internal Medicine Hematology & Oncology
PROC: 3E013GC Introduction of Other Therapeutic Substance into Subcutaneous Tissue, Percutaneous Approach (ICD-10-PCS; principal; 2023-07-28)
DX: E83.111 Hemochromatosis due to repeated red blood cell transfusions (principal); K55.21 Angiodysplasia of colon with hemorrhage
CPT/HCPCS: 96372; J0895

== ENCOUNTER 2023-07-29 16:00 | Day surgery (SDC) | payer OTHER, MEDICARE ==
[2023-07-29] MEDS: [UNRECOGNIZED DRUG - OTHER] IM ONE (17:11)
[2023-07-29 17:22] VITALS: BP 128/53; PULSE 99; RESP 18; TEMP 97.6
== END 2023-07-29 17:23 | disposition home or self-care (01) ==
LOC: JONCNONCHE 16:00 → J7W 17:10 → JONCNONCHE 17:23
PROVIDERS: ATTEND Internal Medicine Hematology & Oncology
PROC: 3E013GC Introduction of Other Therapeutic Substance into Subcutaneous Tissue, Percutaneous Approach (ICD-10-PCS; principal; 2023-07-29)
DX: E83.111 Hemochromatosis due to repeated red blood cell transfusions (principal); K55.21 Angiodysplasia of colon with hemorrhage
CPT/HCPCS: 96372; J0895

== ENCOUNTER 2023-07-30 17:20 | Day surgery (SDC) | payer OTHER, MEDICARE ==
[2023-07-30] MEDS: [UNRECOGNIZED DRUG - OTHER] IM ONE (17:28)
[2023-07-30 18:15] VITALS: BP 132/48; PULSE 91; RESP 18; TEMP 98.2
== END 2023-07-30 17:50 | disposition home or self-care (01) ==
LOC: JONCNONCHE 17:20 → J7W 17:20 → JONCNONCHE 17:50
PROVIDERS: ATTEND Internal Medicine Hematology & Oncology
PROC: 3E013GC Introduction of Other Therapeutic Substance into Subcutaneous Tissue, Percutaneous Approach (ICD-10-PCS; principal; 2023-07-30)
DX: E83.111 Hemochromatosis due to repeated red blood cell transfusions (principal); K55.21 Angiodysplasia of colon with hemorrhage
CPT/HCPCS: 96372; J0895

== ENCOUNTER 2023-07-31 17:51 | Day surgery (SDC) | payer OTHER, MEDICARE ==
[2023-07-31] MEDS: [UNRECOGNIZED DRUG - OTHER] IM ONE (17:52)
[2023-07-31 18:27] VITALS: BP 133/52; PULSE 86; RESP 18; TEMP 97.4
== END 2023-07-31 18:00 | disposition home or self-care (01) ==
LOC: JONCNONCHE 17:51
PROVIDERS: ATTEND Internal Medicine Hematology & Oncology
PROC: 3E013GC Introduction of Other Therapeutic Substance into Subcutaneous Tissue, Percutaneous Approach (ICD-10-PCS; principal; 2023-07-31)
DX: E83.111 Hemochromatosis due to repeated red blood cell transfusions (principal); K55.21 Angiodysplasia of colon with hemorrhage
CPT/HCPCS: 96372; J0895

== ENCOUNTER 2023-08-01 12:35 | Day surgery (SDC) | payer OTHER, MEDICARE ==
[2023-08-01] MEDS: [UNRECOGNIZED DRUG - OTHER] IM ONE (12:41)
[2023-08-01 18:01] VITALS: BP 109/47; PULSE 84; RESP 18; TEMP 98.4
== END 2023-08-01 12:50 | disposition home or self-care (01) ==
LOC: JONCNONCHE 12:35 → J7W 12:35 → JONCNONCHE 12:50
PROVIDERS: ATTEND Internal Medicine Hematology & Oncology
PROC: 3E013GC Introduction of Other Therapeutic Substance into Subcutaneous Tissue, Percutaneous Approach (ICD-10-PCS; principal; 2023-08-01)
DX: E83.111 Hemochromatosis due to repeated red blood cell transfusions (principal); K55.21 Angiodysplasia of colon with hemorrhage
CPT/HCPCS: 96372; J0895

== ENCOUNTER 2023-08-04 11:20 | Day surgery (SDC) | payer OTHER, MEDICARE ==
[2023-08-04] MEDS: [UNRECOGNIZED DRUG - OTHER] IM ONE (11:25)
[2023-08-04 13:55] VITALS: BP 118/61; PULSE 82; RESP 18; TEMP 97.8
== END 2023-08-04 11:45 | disposition home or self-care (01) ==
LOC: J7W 11:20 → JONCNONCHE 11:20
PROVIDERS: ATTEND Internal Medicine Hematology & Oncology
PROC: 3E013GC Introduction of Other Therapeutic Substance into Subcutaneous Tissue, Percutaneous Approach (ICD-10-PCS; principal; 2023-08-04)
DX: E83.111 Hemochromatosis due to repeated red blood cell transfusions (principal); K55.21 Angiodysplasia of colon with hemorrhage
CPT/HCPCS: 96372; J0895

== ENCOUNTER 2023-08-06 12:54 | Day surgery (SDC) | payer OTHER, MEDICARE ==
[2023-08-06] MEDS: [UNRECOGNIZED DRUG - OTHER] IM ONE (13:14)
[2023-08-06 13:32] LABS: BASO % 0.3 % (0-2.0); EOS % 0.1 % (0-4.5); HEMATOCRIT 21.2 % (32.4-45.2); HEMOGLOBIN 7.1 GM/dL (10.7-15.3); LYMPH % 45.2 % (8-40); MCHC 33.7 g/dl (32.0-36.0); MEAN CELL VOLUME 80.1 fl (80-96); MEAN PLT VOLUME 7.5 fl (7.5-11.1); MONO % 8.6 % (3.8-10.2); NEUT % 45.8 % (42.8-82.8); PLATELET COUNT 113 10^3/uL (134-434); RBC 2.65 M/mm3 (3.60-5.2); RDW 14.8 % (11.6-15.6); WHITE BLOOD COUNT 2.7 K/mm3 (4.0-10.0)
[2023-08-06 13:48] LABS: POTASSIUM 4.2 mmol/L (3.5-5.1)
[2023-08-06 13:51] LABS: CALCIUM 7.7 mg/dL (8.5-10.1)
[2023-08-06 13:52] LABS: BLOOD UREA NITROGEN 37.5 mg/dL (7-18)
[2023-08-06 13:54] LABS: BILIRUBIN,DIRECT 0.3 mg/dL (0.0-0.2); URIC ACID 5.4 mg/dL (2.6-7.2)
[2023-08-06 13:55] LABS: BILIRUBIN,TOTAL 0.6 mg/dL (0.2-1); CREATININE 1.5 mg/dL (0.55-1.3)
[2023-08-06 13:56] LABS: TOT PROT 6.9 g/dl (6.4-8.2)
[2023-08-06 14:22] LABS: IRON SERUM 250 ug/dL (50-175); TOTAL IRON BINDING CAPACITY 243 ug/dL (250-450)
[2023-08-06 17:26] VITALS: BP 127/59; PULSE 83; RESP 20; TEMP 97.7
== END 2023-08-06 13:30 | disposition home or self-care (01) ==
LOC: JONCNONCHE 12:54 → J7W 12:54 → JONCNONCHE 13:30
PROVIDERS: ATTEND Internal Medicine Hematology & Oncology
PROC: 3E013GC Introduction of Other Therapeutic Substance into Subcutaneous Tissue, Percutaneous Approach (ICD-10-PCS; principal; 2023-08-06)
DX: E83.111 Hemochromatosis due to repeated red blood cell transfusions (principal); K55.21 Angiodysplasia of colon with hemorrhage
CPT/HCPCS: 36415; 80048; 80076; 82728; 83540; 83550; 84550; 85025; 96372; J0895

== ENCOUNTER 2023-08-07 17:33 | Day surgery (SDC) | payer OTHER, MEDICARE ==
[2023-08-07] MEDS: [UNRECOGNIZED DRUG - OTHER] IM ONE (17:41)
[2023-08-07 17:56] VITALS: BP 125/56; PULSE 89; RESP 18; TEMP 97.9
== END 2023-08-07 17:58 | disposition home or self-care (01) ==
LOC: JONCNONCHE 17:33 → J7W 17:33 → JONCNONCHE 17:58
PROVIDERS: ATTEND Internal Medicine Hematology & Oncology
PROC: 3E013GC Introduction of Other Therapeutic Substance into Subcutaneous Tissue, Percutaneous Approach (ICD-10-PCS; principal; 2023-08-07)
DX: E83.111 Hemochromatosis due to repeated red blood cell transfusions (principal); K55.21 Angiodysplasia of colon with hemorrhage
CPT/HCPCS: 96372; J0895

== ENCOUNTER 2023-08-08 08:06 | Day surgery (SDC) | payer OTHER, MEDICARE ==
[2023-08-08] MEDS: FUROSEMIDE 40 MG/4 ML INJECTABLE VIAL IVPUSH ONE (14:10)
[2023-08-08] MEDS: [UNRECOGNIZED DRUG - OTHER] IM ONE (17:15)
[2023-08-08 17:38] VITALS: BP 99/34; PULSE 79; RESP 18; TEMP 97.5
[2023-08-08] MEDS: PORTA CATH FLUSH 10 ML IVPUSH PRN (17:50)
[2023-08-08 18:09] LABS: BASO % 0.2 % (0-2.0); EOS % 0.1 % (0-4.5); HEMATOCRIT 22.8 % (32.4-45.2); HEMOGLOBIN 7.9 GM/dL (10.7-15.3); LYMPH % 38.9 % (8-40); MCH 27.7 pg (25.7-33.7); MCHC 34.7 g/dl (32.0-36.0); MEAN CELL VOLUME 79.7 fl (80-96); MONO % 9.6 % (3.8-10.2); NEUT % 51.2 % (42.8-82.8); PLATELET COUNT 109 10^3/uL (134-434); RBC 2.86 M/mm3 (3.60-5.2); RDW 15.1 % (11.6-15.6)
== END 2023-08-08 18:28 | disposition home or self-care (01) ==
LOC: J7W 08:06 → JONCNONCHE 08:06
PROVIDERS: ATTEND Internal Medicine Hematology & Oncology
PROC: 30233N1 Transfusion of Nonautologous Red Blood Cells into Peripheral Vein, Percutaneous Approach (ICD-10-PCS; principal; 2023-08-08)
PROC: 3E013GC Introduction of Other Therapeutic Substance into Subcutaneous Tissue, Percutaneous Approach (ICD-10-PCS; 2023-08-08)
DX: K55.21 Angiodysplasia of colon with hemorrhage (principal); C90.00 Multiple myeloma not having achieved remission; E83.111 Hemochromatosis due to repeated red blood cell transfusions
CPT/HCPCS: 36415; 36430; 85025; 86850; 86900; 86901; 86922; 96372; J0895; P9058

== ENCOUNTER 2023-08-12 09:56 | Day surgery (SDC) | payer OTHER, MEDICARE ==
[~2023-08-12 09:56] MED LIST changes: +[UNRECOGNIZED DRUG - OTHER] IM ONE; -[UNRECOGNIZED DRUG - OTHER] IM ONE
[2023-08-12] MEDS: [UNRECOGNIZED DRUG - OTHER] IM ONE (11:30)
[2023-08-12 16:55] VITALS: BP 114/56; PULSE 85; RESP 18; TEMP 98.3
== END 2023-08-12 11:50 | disposition home or self-care (01) ==
LOC: JONCNONCHE 09:56 → J7W 09:57 → JONCNONCHE 11:50
PROVIDERS: ATTEND Internal Medicine Hematology & Oncology
PROC: 3E013GC Introduction of Other Therapeutic Substance into Subcutaneous Tissue, Percutaneous Approach (ICD-10-PCS; principal; 2023-08-12)
DX: E83.111 Hemochromatosis due to repeated red blood cell transfusions (principal); K55.21 Angiodysplasia of colon with hemorrhage
CPT/HCPCS: 96372; J0895

== ENCOUNTER 2023-08-13 17:30 | Day surgery (SDC) | payer OTHER, MEDICARE ==
[2023-08-13] MEDS: [UNRECOGNIZED DRUG - OTHER] IM ONE (17:38)
[2023-08-13 17:45] VITALS: BP 117/46; PULSE 91; RESP 18; TEMP 97.7
== END 2023-08-13 17:48 | disposition home or self-care (01) ==
LOC: JONCNONCHE 17:30 → J7W 17:30 → JONCNONCHE 17:48
PROVIDERS: ATTEND Internal Medicine Hematology & Oncology
PROC: 3E013GC Introduction of Other Therapeutic Substance into Subcutaneous Tissue, Percutaneous Approach (ICD-10-PCS; principal; 2023-08-13)
DX: E83.111 Hemochromatosis due to repeated red blood cell transfusions (principal); K55.21 Angiodysplasia of colon with hemorrhage
CPT/HCPCS: 96372; J0895

== ENCOUNTER 2023-08-14 18:14 | Day surgery (SDC) | payer OTHER, MEDICARE ==
[2023-08-14] MEDS: [UNRECOGNIZED DRUG - OTHER] IM ONE (17:26)
[2023-08-14 18:17] VITALS: BP 100/52; PULSE 70; RESP 16; TEMP 98.1
== END 2023-08-14 18:27 | disposition home or self-care (01) ==
LOC: JONCCHEMO 18:14 → J7W 18:14 → JONCCHEMO 18:27
PROVIDERS: ATTEND Internal Medicine Hematology & Oncology
PROC: 3E013GC Introduction of Other Therapeutic Substance into Subcutaneous Tissue, Percutaneous Approach (ICD-10-PCS; principal; 2023-08-14)
DX: E83.111 Hemochromatosis due to repeated red blood cell transfusions (principal); K55.21 Angiodysplasia of colon with hemorrhage
CPT/HCPCS: 96372; J0895

== ENCOUNTER 2023-08-15 07:44 | Day surgery (SDC) | payer OTHER, MEDICARE ==
[2023-08-15] MEDS: FUROSEMIDE 40 MG/4 ML INJECTABLE VIAL IVPUSH ONE (12:44)
[2023-08-15] MEDS: [UNRECOGNIZED DRUG - OTHER] IM ONE (15:54)
[2023-08-15 16:46] VITALS: RESP 16
[2023-08-15 16:48] VITALS: BP 94/44; PULSE 78; TEMP 98
[2023-08-15 16:49] LABS: HEMOGLOBIN 8.5 GM/dL (10.7-15.3); MCH 27.8 pg (25.7-33.7); MCHC 34.1 g/dl (32.0-36.0); MEAN CELL VOLUME 81.6 fl (80-96); PLATELET COUNT 116 10^3/uL (134-434); RBC 3.07 M/mm3 (3.60-5.2); WHITE BLOOD COUNT 3.5 K/mm3 (4.0-10.0)
[2023-08-15] MEDS ORDERED: PORTA CATH FLUSH 10 ML IVPUSH PRN (17:05)
[2023-08-15 17:47] LABS: ANISOCYTOSIS 2+; MACROCYTOSIS 0; TARGET CELLS 1+
== END 2023-08-15 16:30 | disposition home or self-care (01) ==
LOC: JONCCHEMO 07:44 → J7W 07:46 → JONCCHEMO 16:30
PROVIDERS: ATTEND Internal Medicine Hematology & Oncology
PROC: 30243N1 Transfusion of Nonautologous Red Blood Cells into Central Vein, Percutaneous Approach (ICD-10-PCS; principal; 2023-08-15)
PROC: 3E013GC Introduction of Other Therapeutic Substance into Subcutaneous Tissue, Percutaneous Approach (ICD-10-PCS; 2023-08-15)
DX: K55.21 Angiodysplasia of colon with hemorrhage (principal); E83.111 Hemochromatosis due to repeated red blood cell transfusions; C90.00 Multiple myeloma not having achieved remission
CPT/HCPCS: 36415; 36430; 83010; 83070; 85025; 85045; 86850; 86900; 86901; 86922; 96372; J0895; P9038; P9058

== ENCOUNTER 2023-08-18 11:27 | Day surgery (SDC) | payer OTHER, MEDICARE ==
[2023-08-18] MEDS: [UNRECOGNIZED DRUG - OTHER] IM ONE (11:35)
[2023-08-18 16:51] VITALS: BP 125/62; PULSE 77; RESP 20; TEMP 98.4
== END 2023-08-18 11:45 | disposition home or self-care (01) ==
LOC: JONCNONCHE 11:27 → J7W 11:28 → JONCNONCHE 11:45
PROVIDERS: ATTEND Internal Medicine Hematology & Oncology
PROC: 3E013GC Introduction of Other Therapeutic Substance into Subcutaneous Tissue, Percutaneous Approach (ICD-10-PCS; principal; 2023-08-18)
DX: K55.21 Angiodysplasia of colon with hemorrhage (principal)
CPT/HCPCS: 96372; J0895

== ENCOUNTER 2023-08-19 17:30 | Day surgery (SDC) | payer OTHER, MEDICARE ==
[2023-08-19] MEDS: [UNRECOGNIZED DRUG - OTHER] IM ONE (17:40)
[2023-08-19 18:11] VITALS: BP 120/54; PULSE 94; RESP 18; TEMP 99.1
== END 2023-08-19 17:50 | disposition home or self-care (01) ==
LOC: J7W 17:30 → JONCNONCHE 17:30
PROVIDERS: ATTEND Internal Medicine Hematology & Oncology
PROC: 3E013GC Introduction of Other Therapeutic Substance into Subcutaneous Tissue, Percutaneous Approach (ICD-10-PCS; principal; 2023-08-19)
DX: E83.111 Hemochromatosis due to repeated red blood cell transfusions (principal); K55.21 Angiodysplasia of colon with hemorrhage
CPT/HCPCS: 96372; J0895

== ENCOUNTER 2023-08-20 17:30 | Day surgery (SDC) | payer OTHER, MEDICARE ==
[2023-08-20] MEDS: [UNRECOGNIZED DRUG - OTHER] IM ONE (17:31)
[2023-08-20 18:05] VITALS: BP 126/52; PULSE 83; RESP 18; TEMP 97.4
== END 2023-08-20 17:45 | disposition home or self-care (01) ==
LOC: J7W 17:30 → JONCNONCHE 17:30
PROVIDERS: ATTEND Internal Medicine Hematology & Oncology
PROC: 3E013GC Introduction of Other Therapeutic Substance into Subcutaneous Tissue, Percutaneous Approach (ICD-10-PCS; principal; 2023-08-20)
DX: E83.111 Hemochromatosis due to repeated red blood cell transfusions (principal); K55.21 Angiodysplasia of colon with hemorrhage
CPT/HCPCS: 96372; J0895

== ENCOUNTER 2023-08-25 12:00 | Day surgery (SDC) | payer OTHER, MEDICARE ==
[2023-08-25] MEDS: [UNRECOGNIZED DRUG - OTHER] IM ONE (13:15)
[2023-08-25 18:52] VITALS: BP 106/48; PULSE 82; RESP 18; TEMP 97.6
== END 2023-08-25 13:30 | disposition home or self-care (01) ==
LOC: J7W 12:00 → JONCNONCHE 12:00
PROVIDERS: ATTEND Internal Medicine Hematology & Oncology
PROC: 3E013GC Introduction of Other Therapeutic Substance into Subcutaneous Tissue, Percutaneous Approach (ICD-10-PCS; principal; 2023-08-25)
DX: E83.111 Hemochromatosis due to repeated red blood cell transfusions (principal); K55.21 Angiodysplasia of colon with hemorrhage
CPT/HCPCS: 96372; J0895

== ENCOUNTER 2023-08-26 17:30 | Day surgery (SDC) | payer OTHER, MEDICARE ==
[2023-08-26] MEDS: [UNRECOGNIZED DRUG - OTHER] IM ONE (17:33)
[2023-08-26 18:02] VITALS: BP 104/43; PULSE 91; RESP 18; TEMP 97.8
== END 2023-08-26 17:50 | disposition home or self-care (01) ==
LOC: J7W 17:30 → JONCNONCHE 17:30
PROVIDERS: ATTEND Internal Medicine Hematology & Oncology
PROC: 3E013GC Introduction of Other Therapeutic Substance into Subcutaneous Tissue, Percutaneous Approach (ICD-10-PCS; principal; 2023-08-26)
DX: E83.111 Hemochromatosis due to repeated red blood cell transfusions (principal); K55.21 Angiodysplasia of colon with hemorrhage
CPT/HCPCS: 96372; J0895

== ENCOUNTER 2023-08-27 17:30 | Day surgery (SDC) | payer OTHER, MEDICARE ==
[2023-08-27] MEDS: [UNRECOGNIZED DRUG - OTHER] IM ONE (17:35)
[2023-08-27 17:50] VITALS: BP 129/47; PULSE 83; RESP 20; TEMP 97.8
== END 2023-08-27 17:53 | disposition home or self-care (01) ==
LOC: JONCNONCHE 17:30 → J7W 17:30 → JONCNONCHE 17:53
PROVIDERS: ATTEND Internal Medicine Hematology & Oncology
PROC: 3E013GC Introduction of Other Therapeutic Substance into Subcutaneous Tissue, Percutaneous Approach (ICD-10-PCS; principal; 2023-08-27)
DX: E83.111 Hemochromatosis due to repeated red blood cell transfusions (principal); K55.21 Angiodysplasia of colon with hemorrhage
CPT/HCPCS: 96372; J0895

== ENCOUNTER 2023-08-28 17:33 | Day surgery (SDC) | payer OTHER, MEDICARE ==
[2023-08-28 17:32] VITALS: BP 126/53; PULSE 84; RESP 18; TEMP 97.5
[2023-08-28] MEDS: [UNRECOGNIZED DRUG - OTHER] IM ONE (17:35)
== END 2023-08-28 17:45 | disposition home or self-care (01) ==
LOC: JONCCHEMO 17:33 → J7W 17:34 → JONCCHEMO 17:45
PROVIDERS: ATTEND Internal Medicine Hematology & Oncology
PROC: 3E013GC Introduction of Other Therapeutic Substance into Subcutaneous Tissue, Percutaneous Approach (ICD-10-PCS; principal; 2023-08-28)
DX: E83.111 Hemochromatosis due to repeated red blood cell transfusions (principal); K55.21 Angiodysplasia of colon with hemorrhage
CPT/HCPCS: 96372; J0895

== ENCOUNTER 2023-08-29 11:30 | Day surgery (SDC) | payer OTHER, MEDICARE ==
[2023-08-29] MEDS: [UNRECOGNIZED DRUG - OTHER] IM ONE (11:35)
[2023-08-29 15:25] VITALS: BP 120/56; PULSE 74; RESP 20; TEMP 97.8
== END 2023-08-29 11:45 | disposition home or self-care (01) ==
LOC: JONCNONCHE 11:30 → J7W 11:33 → JONCNONCHE 11:45
PROVIDERS: ATTEND Internal Medicine Hematology & Oncology
PROC: 3E013GC Introduction of Other Therapeutic Substance into Subcutaneous Tissue, Percutaneous Approach (ICD-10-PCS; principal; 2023-08-29)
DX: E83.111 Hemochromatosis due to repeated red blood cell transfusions (principal); K55.21 Angiodysplasia of colon with hemorrhage
CPT/HCPCS: 96372; J0895

== ENCOUNTER 2023-09-01 10:43 | Day surgery (SDC) | payer OTHER, MEDICARE ==
[2023-09-01] MEDS: [UNRECOGNIZED DRUG - OTHER] IM ONE (10:53)
[2023-09-01 18:36] VITALS: BP 115/50; PULSE 80; RESP 20; TEMP 97.8
== END 2023-09-01 11:20 | disposition home or self-care (01) ==
LOC: JONCNONCHE 10:43 → J7W 10:44 → JONCNONCHE 11:20
PROVIDERS: ATTEND Internal Medicine Hematology & Oncology
PROC: 3E013GC Introduction of Other Therapeutic Substance into Subcutaneous Tissue, Percutaneous Approach (ICD-10-PCS; principal; 2023-09-01)
DX: E83.111 Hemochromatosis due to repeated red blood cell transfusions (principal); K55.21 Angiodysplasia of colon with hemorrhage
CPT/HCPCS: 96372; J0895

== ENCOUNTER 2023-09-02 17:53 | Day surgery (SDC) | payer OTHER, MEDICARE ==
[2023-09-02] MEDS: [UNRECOGNIZED DRUG - OTHER] IM ONE (17:40)
[2023-09-02 19:05] VITALS: BP 125/49; PULSE 84; RESP 18; TEMP 97.6
== END 2023-09-02 18:00 | disposition home or self-care (01) ==
LOC: JONCNONCHE 17:53 → J7W 17:53 → JONCNONCHE 18:00
PROVIDERS: ATTEND Internal Medicine Hematology & Oncology
PROC: 3E013GC Introduction of Other Therapeutic Substance into Subcutaneous Tissue, Percutaneous Approach (ICD-10-PCS; principal; 2023-09-02)
DX: E83.111 Hemochromatosis due to repeated red blood cell transfusions (principal); K55.21 Angiodysplasia of colon with hemorrhage
CPT/HCPCS: 96372; J0895

== ENCOUNTER 2023-09-03 17:30 | Day surgery (SDC) | payer OTHER, MEDICARE ==
[2023-09-03 17:31] VITALS: PULSE 85; TEMP 97.8
[2023-09-03] MEDS: [UNRECOGNIZED DRUG - OTHER] IM ONE (17:33)
[2023-09-03 17:44] VITALS: BP 111/57; RESP 20
== END 2023-09-03 17:46 | disposition home or self-care (01) ==
LOC: JONCNONCHE 17:30 → J7W 17:31 → JONCNONCHE 17:46
PROVIDERS: ATTEND Internal Medicine Hematology & Oncology
PROC: 3E013GC Introduction of Other Therapeutic Substance into Subcutaneous Tissue, Percutaneous Approach (ICD-10-PCS; principal; 2023-09-03)
DX: E83.111 Hemochromatosis due to repeated red blood cell transfusions (principal); K55.21 Angiodysplasia of colon with hemorrhage
CPT/HCPCS: 96372; J0895

== ENCOUNTER 2023-09-04 07:38 | Day surgery (SDC) | payer OTHER, MEDICARE ==
[2023-09-04] MEDS ORDERED: FUROSEMIDE 40 MG/4 ML INJECTABLE VIAL ONE (13:34)
[2023-09-04] MEDS: FUROSEMIDE 40 MG/4 ML INJECTABLE VIAL IVPUSH ONE (13:36)
[2023-09-04 17:35] VITALS: RESP 18
[2023-09-04 17:39] VITALS: BP 124/39; PULSE 84; TEMP 97.8
[2023-09-04] MEDS: [UNRECOGNIZED DRUG - OTHER] IM ONE (17:46)
[2023-09-04] MEDS: PORTA CATH FLUSH 10 ML IVPUSH PRN (17:55)
[2023-09-04 18:28] LABS: BASO % 0.2 % (0-2.0); HEMATOCRIT 27.2 % (32.4-45.2); HEMOGLOBIN 9.2 GM/dL (10.7-15.3); LYMPH % 14.4 % (8-40); MCH 28.2 pg (25.7-33.7); MCHC 33.7 g/dl (32.0-36.0); MEAN CELL VOLUME 83.7 fl (80-96); MEAN PLT VOLUME 7.5 fl (7.5-11.1); MONO % 7.1 % (3.8-10.2); NEUT % 78.3 % (42.8-82.8); PLATELET COUNT 147 10^3/uL (134-434); RBC 3.24 M/mm3 (3.60-5.2); RDW 15.5 % (11.6-15.6); WHITE BLOOD COUNT 9.2 K/mm3 (4.0-10.0)
== END 2023-09-04 18:00 | disposition home or self-care (01) ==
LOC: JONCNONCHE 07:38 → J7W 07:39 → JONCNONCHE 18:00
PROVIDERS: ATTEND Internal Medicine Hematology & Oncology
PROC: 30243N1 Transfusion of Nonautologous Red Blood Cells into Central Vein, Percutaneous Approach (ICD-10-PCS; principal; 2023-09-04)
DX: K55.21 Angiodysplasia of colon with hemorrhage (principal)
CPT/HCPCS: 36415; 36430; 85025; 86850; 86900; 86901; 86922; J0895; P9058

== ENCOUNTER 2023-09-05 11:27 | Day surgery (SDC) | payer OTHER, MEDICARE ==
[2023-09-05] MEDS: [UNRECOGNIZED DRUG - OTHER] IM ONE (11:17)
[2023-09-05 15:51] VITALS: BP 138/51; PULSE 83; RESP 16; TEMP 98
== END 2023-09-05 11:30 | disposition home or self-care (01) ==
LOC: JONCNONCHE 11:27 → J7W 11:28 → JONCNONCHE 11:30
PROVIDERS: ATTEND Internal Medicine Hematology & Oncology
PROC: 3E023GC Introduction of Other Therapeutic Substance into Muscle, Percutaneous Approach (ICD-10-PCS; principal; 2023-09-05)
DX: K55.21 Angiodysplasia of colon with hemorrhage (principal)
CPT/HCPCS: 96372; J0895

== ENCOUNTER 2023-09-08 10:00 | Day surgery (SDC) | payer OTHER, MEDICARE ==
[2023-09-08] MEDS: [UNRECOGNIZED DRUG - OTHER] IM ONE (10:42)
[2023-09-08 14:29] VITALS: BP 133/55; PULSE 88; RESP 18; TEMP 97.5
== END 2023-09-08 11:00 | disposition home or self-care (01) ==
LOC: J7W 10:00 → JONCNONCHE 10:00
PROVIDERS: ATTEND Internal Medicine Hematology & Oncology
PROC: 3E013GC Introduction of Other Therapeutic Substance into Subcutaneous Tissue, Percutaneous Approach (ICD-10-PCS; principal; 2023-09-08)
DX: E83.111 Hemochromatosis due to repeated red blood cell transfusions (principal); K55.21 Angiodysplasia of colon with hemorrhage
CPT/HCPCS: 96372; J0895

== ENCOUNTER 2023-09-09 17:02 | Day surgery (SDC) | payer OTHER, MEDICARE ==
[2023-09-09] MEDS: [UNRECOGNIZED DRUG - OTHER] IM ONE (16:56)
[2023-09-09 17:22] VITALS: BP 114/53; PULSE 88; RESP 18; TEMP 97.9
== END 2023-09-09 17:22 | disposition home or self-care (01) ==
LOC: JONCNONCHE 17:02 → J7W 17:03 → JONCNONCHE 17:22
PROVIDERS: ATTEND Internal Medicine Hematology & Oncology
PROC: 3E013GC Introduction of Other Therapeutic Substance into Subcutaneous Tissue, Percutaneous Approach (ICD-10-PCS; principal; 2023-09-09)
DX: E83.111 Hemochromatosis due to repeated red blood cell transfusions (principal); K55.21 Angiodysplasia of colon with hemorrhage
CPT/HCPCS: 96372; J0895

== ENCOUNTER 2023-09-10 12:00 | Day surgery (SDC) | payer OTHER, MEDICARE ==
[2023-09-10] MEDS: [UNRECOGNIZED DRUG - OTHER] IM ONE (12:06)
[2023-09-10 17:45] VITALS: BP 121/51; PULSE 79; RESP 20; TEMP 97.8
== END 2023-09-10 12:25 | disposition home or self-care (01) ==
LOC: JONCNONCHE 12:00 → J7W 12:00 → JONCNONCHE 12:25
PROVIDERS: ATTEND Internal Medicine Hematology & Oncology
PROC: 3E013GC Introduction of Other Therapeutic Substance into Subcutaneous Tissue, Percutaneous Approach (ICD-10-PCS; principal; 2023-09-10)
DX: E83.111 Hemochromatosis due to repeated red blood cell transfusions (principal); K55.21 Angiodysplasia of colon with hemorrhage
CPT/HCPCS: 96372; J0895

== ENCOUNTER 2023-09-11 11:56 | Day surgery (SDC) | payer OTHER, MEDICARE ==
[2023-09-11] MEDS: [UNRECOGNIZED DRUG - OTHER] IM ONE (12:00)
[2023-09-11 14:36] VITALS: BP 104/48; PULSE 70; RESP 20; TEMP 97.6
== END 2023-09-11 12:30 | disposition home or self-care (01) ==
LOC: JONCNONCHE 11:56 → J7W 11:57 → JONCNONCHE 12:30
PROVIDERS: ATTEND Internal Medicine Hematology & Oncology
PROC: 3E013GC Introduction of Other Therapeutic Substance into Subcutaneous Tissue, Percutaneous Approach (ICD-10-PCS; principal; 2023-09-11)
DX: E83.111 Hemochromatosis due to repeated red blood cell transfusions (principal); K55.21 Angiodysplasia of colon with hemorrhage
CPT/HCPCS: 96372; J0895

== ENCOUNTER 2023-09-12 11:27 | Day surgery (SDC) | payer OTHER, MEDICARE ==
[2023-09-12] MEDS: [UNRECOGNIZED DRUG - OTHER] IM ONE (11:25)
[2023-09-12 11:30] VITALS: BP 126/57; PULSE 77; RESP 18; TEMP 97.7
== END 2023-09-12 11:35 | disposition home or self-care (01) ==
LOC: JONCNONCHE 11:27 → J7W 11:27 → JONCNONCHE 11:35
PROVIDERS: ATTEND Internal Medicine Hematology & Oncology
PROC: 3E013GC Introduction of Other Therapeutic Substance into Subcutaneous Tissue, Percutaneous Approach (ICD-10-PCS; principal; 2023-09-12)
DX: E83.111 Hemochromatosis due to repeated red blood cell transfusions (principal); K55.21 Angiodysplasia of colon with hemorrhage
CPT/HCPCS: 96372; J0895

== ENCOUNTER 2023-09-15 11:11 | Day surgery (SDC) | payer OTHER, MEDICARE ==
[2023-09-15] MEDS: [UNRECOGNIZED DRUG - OTHER] IM ONE (11:20)
[2023-09-15 14:04] VITALS: BP 108/51; PULSE 90; RESP 18; TEMP 97.9
== END 2023-09-15 12:00 | disposition home or self-care (01) ==
LOC: JONCNONCHE 11:11 → J7W 11:12 → JONCNONCHE 12:00
PROVIDERS: ATTEND Internal Medicine Hematology & Oncology
PROC: 3E013GC Introduction of Other Therapeutic Substance into Subcutaneous Tissue, Percutaneous Approach (ICD-10-PCS; principal; 2023-09-15)
DX: E83.111 Hemochromatosis due to repeated red blood cell transfusions (principal); K55.21 Angiodysplasia of colon with hemorrhage
CPT/HCPCS: 96372; J0895

== ENCOUNTER 2023-09-16 17:37 | Day surgery (SDC) | payer OTHER, MEDICARE ==
[2023-09-16] MEDS: [UNRECOGNIZED DRUG - OTHER] IM ONE (17:30)
[2023-09-16 17:39] VITALS: BP 110/35; PULSE 87; RESP 20; TEMP 97.5
== END 2023-09-16 17:43 | disposition home or self-care (01) ==
LOC: JONCNONCHE 17:37 → J7W 17:37 → JONCNONCHE 17:43
PROVIDERS: ATTEND Internal Medicine Hematology & Oncology
PROC: 3E013GC Introduction of Other Therapeutic Substance into Subcutaneous Tissue, Percutaneous Approach (ICD-10-PCS; principal; 2023-09-16)
DX: E83.111 Hemochromatosis due to repeated red blood cell transfusions (principal); K55.21 Angiodysplasia of colon with hemorrhage
CPT/HCPCS: 96372; J0895

== ENCOUNTER 2023-09-17 17:24 | Day surgery (SDC) | payer OTHER, MEDICARE ==
[2023-09-17] MEDS: [UNRECOGNIZED DRUG - OTHER] IM ONE (17:27)
[2023-09-17 17:34] VITALS: BP 141/57; PULSE 98; RESP 20; TEMP 97.9
== END 2023-09-17 17:37 | disposition home or self-care (01) ==
LOC: JONCNONCHE 17:24 → J7W 17:24 → JONCNONCHE 17:37
PROVIDERS: ATTEND Internal Medicine Hematology & Oncology
PROC: 3E013GC Introduction of Other Therapeutic Substance into Subcutaneous Tissue, Percutaneous Approach (ICD-10-PCS; principal; 2023-09-17)
DX: E83.111 Hemochromatosis due to repeated red blood cell transfusions (principal); K55.21 Angiodysplasia of colon with hemorrhage
CPT/HCPCS: 96372; J0895

== ENCOUNTER 2023-09-18 14:00 | Day surgery (SDC) | payer OTHER, MEDICARE ==
[2023-09-18] MEDS: [UNRECOGNIZED DRUG - OTHER] IM ONE (14:04)
[2023-09-18 17:29] VITALS: BP 122/66; PULSE 95; RESP 20; TEMP 98.2
== END 2023-09-18 14:30 | disposition home or self-care (01) ==
LOC: J7W 14:00 → JONCNONCHE 14:00
PROVIDERS: ATTEND Internal Medicine Hematology & Oncology
PROC: 3E013GC Introduction of Other Therapeutic Substance into Subcutaneous Tissue, Percutaneous Approach (ICD-10-PCS; principal; 2023-09-18)
DX: E83.111 Hemochromatosis due to repeated red blood cell transfusions (principal); K55.21 Angiodysplasia of colon with hemorrhage
CPT/HCPCS: 96372; J0895

== ENCOUNTER 2023-09-19 11:15 | Day surgery (SDC) | payer OTHER, MEDICARE ==
[2023-09-19] MEDS: [UNRECOGNIZED DRUG - OTHER] IM ONE (11:36)
[2023-09-19 16:25] VITALS: BP 130/51; PULSE 75; RESP 20; TEMP 97.5
== END 2023-09-19 12:05 | disposition home or self-care (01) ==
LOC: J7W 11:15 → JONCNONCHE 11:15
PROVIDERS: ATTEND Internal Medicine Hematology & Oncology
PROC: 3E013GC Introduction of Other Therapeutic Substance into Subcutaneous Tissue, Percutaneous Approach (ICD-10-PCS; principal; 2023-09-19)
DX: E83.111 Hemochromatosis due to repeated red blood cell transfusions (principal); K55.21 Angiodysplasia of colon with hemorrhage
CPT/HCPCS: 96372; J0895

== ENCOUNTER 2023-09-22 11:01 | Day surgery (SDC) | payer OTHER, MEDICARE ==
[2023-09-22] MEDS: [UNRECOGNIZED DRUG - OTHER] IM ONE (11:27)
[2023-09-22 16:47] VITALS: BP 110/54; PULSE 90; RESP 18; TEMP 98.3
== END 2023-09-22 12:00 | disposition home or self-care (01) ==
LOC: JONCNONCHE 11:01 → J7W 11:02 → JONCNONCHE 12:00
PROVIDERS: ATTEND Internal Medicine Hematology & Oncology
PROC: 3E013GC Introduction of Other Therapeutic Substance into Subcutaneous Tissue, Percutaneous Approach (ICD-10-PCS; principal; 2023-09-22)
DX: E83.111 Hemochromatosis due to repeated red blood cell transfusions (principal); K55.21 Angiodysplasia of colon with hemorrhage
CPT/HCPCS: 96372; J0895

== ENCOUNTER 2023-09-24 07:33 | Day surgery (SDC) | payer OTHER, MEDICARE ==
[2023-09-24] MEDS: SODIUM CHLORIDE 0.45% 250 ML IVPB ONE (08:30)
[2023-09-24] MEDS ORDERED: FUROSEMIDE 40 MG/4 ML INJECTABLE VIAL ONE (14:32)
[2023-09-24] MEDS: FUROSEMIDE 40 MG/4 ML INJECTABLE VIAL IVPUSH ONE (14:41)
[2023-09-24 18:23] VITALS: BP 109/50; PULSE 81; RESP 18; TEMP 97.8
[2023-09-24] MEDS: PORTA CATH FLUSH 10 ML IVPUSH PRN (18:29)
[2023-09-24] MEDS: [UNRECOGNIZED DRUG - OTHER] IM ONE (18:29)
[2023-09-24 18:53] LABS: BASO % 0.1 % (0-2.0); EOS % 0.2 % (0-4.5); HEMATOCRIT 29.2 % (32.4-45.2); HEMOGLOBIN 9.9 GM/dL (10.7-15.3); LYMPH % 24.4 % (8-40); MEAN CELL VOLUME 82.4 fl (80-96); MEAN PLT VOLUME 7.4 fl (7.5-11.1); MONO % 5.5 % (3.8-10.2); NEUT % 69.8 % (42.8-82.8); PLATELET COUNT 150 10^3/uL (134-434); RBC 3.54 M/mm3 (3.60-5.2); RDW 15.7 % (11.6-15.6); WHITE BLOOD COUNT 5.8 K/mm3 (4.0-10.0)
== END 2023-09-24 18:55 | disposition home or self-care (01) ==
LOC: JONCNONCHE 07:33 → J7W 07:33 → JONCNONCHE 18:55
PROVIDERS: ATTEND Internal Medicine Hematology & Oncology
PROC: 30233N1 Transfusion of Nonautologous Red Blood Cells into Peripheral Vein, Percutaneous Approach (ICD-10-PCS; principal; 2023-09-24)
PROC: 3E01305 Introduction of Other Antineoplastic into Subcutaneous Tissue, Percutaneous Approach (ICD-10-PCS; 2023-09-24)
DX: C90.00 Multiple myeloma not having achieved remission (principal); K55.21 Angiodysplasia of colon with hemorrhage; E83.111 Hemochromatosis due to repeated red blood cell transfusions
CPT/HCPCS: 36415; 36430; 85025; 86850; 86900; 86901; 86922; 96372; J0895; P9038; P9058

== ENCOUNTER 2023-09-25 12:15 | Day surgery (SDC) | payer OTHER, MEDICARE ==
[2023-09-25] MEDS: [UNRECOGNIZED DRUG - OTHER] IM ONE (12:27)
[2023-09-25 17:36] VITALS: BP 126/71; PULSE 88; RESP 20; TEMP 97.7
== END 2023-09-25 12:45 | disposition home or self-care (01) ==
LOC: JONCNONCHE 12:15 → J7W 12:15 → JONCNONCHE 12:45
PROVIDERS: ATTEND Internal Medicine Hematology & Oncology
PROC: 3E013GC Introduction of Other Therapeutic Substance into Subcutaneous Tissue, Percutaneous Approach (ICD-10-PCS; principal; 2023-09-25)
DX: E83.111 Hemochromatosis due to repeated red blood cell transfusions (principal); K55.21 Angiodysplasia of colon with hemorrhage
CPT/HCPCS: 96372; J0895

== ENCOUNTER 2023-09-29 04:33 | Inpatient (IN) | payer OTHER, MEDICARE ==
[2023-09-29 05:38] LABS: HEMOGLOBIN 8.8 GM/dL (10.7-15.3); MCH 28.3 pg (25.7-33.7); MCHC 34.1 g/dl (32.0-36.0); MEAN PLT VOLUME 7.1 fl (7.5-11.1); PLATELET COUNT 136 10^3/uL (134-434); RBC 3.13 M/mm3 (3.60-5.2); RDW 16.2 % (11.6-15.6); WHITE BLOOD COUNT 5.9 K/mm3 (4.0-10.0)
[2023-09-29 05:47] LABS: INR 1.03 (0.83-1.09); PROTHROMBIN TIME (PATIENT) 11.9 SEC (9.7-13.0)
[2023-09-29 05:49] LABS: ACTIVATED PTT 25.1 SECONDS (25.2-36.5)
[2023-09-29 06:00] LABS: CHLORIDE 106 mmol/L (98-107); POTASSIUM 4.2 mmol/L (3.5-5.1); SODIUM 138 mmol/L (136-145)
[2023-09-29 06:03] LABS: ALBUMIN 2.6 g/dl (3.4-5.0); ANION GAP 4 mmol/L (4-13); BLOOD UREA NITROGEN 41.8 mg/dL (7-18); CO2 28 mmol/L (21-32); GLUCOSE,RANDOM 225 mg/dL (74-106); MAGNESIUM 1.9 mg/dL (1.8-2.4)
[2023-09-29 06:06] LABS: CREATININE 1.8 mg/dL (0.55-1.3); PHOSPHOROUS 2.5 mg/dL (2.5-4.9); SGOT/AST 95 U/L (15-37); SGPT/ALT 146 U/L (13-61)
[2023-09-29 06:07] LABS: BILIRUBIN,TOTAL 0.4 mg/dL (0.2-1)
[2023-09-29 06:08] LABS: TOT PROT 5.4 g/dl (6.4-8.2)
[2023-09-29 06:17] LABS: ALK PHOS 309 U/L (45-117); CALCIUM 6.9 mg/dL (8.5-10.1)
[2023-09-29] MEDS ORDERED: CALCIUM GLUC IN NACL, ISO-OSM 1 GM/50 ML BAG IVPB ONE ×2 (07:56→15:23)
[2023-09-29] MEDS: CALCIUM GLUCONATE 10% - 1,000 MG/10 ML VIAL IVPB ONE ×2 (08:01→15:32)
[2023-09-29 09:20] LABS: ANISOCYTOSIS 0; HELMET CELLS 0; HOWELL-JOLLY BODIES 0; MACROCYTOSIS 0; OVALOCYTE 0; ROULEAU 0; SICKELED CELLS 0; TARGET CELLS 0; TEAR DROP CELLS 0; TOXIC GRANULATION 0
[2023-09-29 20:39] VITALS: BMI 29.2
[2023-09-29] MEDS: predniSONE 20 MG TABLET (UD) PO SCH (22:17)
[2023-09-29] MEDS: CALCIUM (OYSTER SHELL) 500 MG TABLET (FP) PO SCH (22:17)
[2023-09-30] MEDS: TORSEMIDE 20 MG TABLET (FP) PO SCH (06:24)
[2023-09-30] MEDS: LEVOTHYROXINE 100 MCG, LEVOTHYROXINE 75 MCG PO SCH (06:25)
[2023-09-30] MEDS ORDERED: LEVOTHYROXINE NA 150 MCG TABLET PO SCH (07:00)
[2023-09-30 09:01] LABS: HEMATOCRIT 28.1 % (32.4-45.2); HEMOGLOBIN 9.3 GM/dL (10.7-15.3); MCH 27.7 pg (25.7-33.7); MEAN CELL VOLUME 84.1 fl (80-96); MEAN PLT VOLUME 7.5 fl (7.5-11.1); PLATELET COUNT 137 10^3/uL (134-434); RBC 3.34 M/mm3 (3.60-5.2); RDW 16.5 % (11.6-15.6); WHITE BLOOD COUNT 5.4 K/mm3 (4.0-10.0)
[2023-09-30] MEDS: TOLTERODINE TARTRATE 2 MG TABLET PO SCH (09:24)
[2023-09-30] MEDS: metoPROLOL SUCCINATE 25 MG TAB.SR.24H (FP) PO SCH (09:24)
[2023-09-30] MEDS: CALCITRIOL 0.25 MCG CAPSULE (FP) PO SCH (09:24)
[2023-09-30 09:35] LABS: POTASSIUM 4.2 mmol/L (3.5-5.1)
[2023-09-30 09:36] LABS: ALBUMIN 2.6 g/dl (3.4-5.0); BILIRUBIN,TOTAL 0.6 mg/dL (0.2-1); CALCIUM 7.8 mg/dL (8.5-10.1); CREATININE 1.6 mg/dL (0.55-1.3); MAGNESIUM 2.3 mg/dL (1.8-2.4); PHOSPHOROUS 3.4 mg/dL (2.5-4.9); TOT PROT 5.6 g/dl (6.4-8.2)
[2023-09-30 10:33] LABS: ANISOCYTOSIS 0; HELMET CELLS 0; HOWELL-JOLLY BODIES 0; MACROCYTOSIS 0; OVALOCYTE 0; ROULEAU 0; SICKELED CELLS 0; TARGET CELLS 0; TEAR DROP CELLS 0; TOXIC GRANULATION 0
[2023-09-30 11:47] LABS: IRON SERUM 207 ug/dL (50-175)
[2023-09-30 11:48] LABS: TOTAL IRON BINDING CAPACITY 222 ug/dL (250-450)
[2023-09-30] MEDS: [UNRECOGNIZED DRUG - OTHER] IM SCH (12:40)
[2023-09-30 16:43] LABS: POTASSIUM 3.7 mmol/L (3.5-5.1)
[2023-09-30 16:45] LABS: CALCIUM 7.2 mg/dL (8.5-10.1)
[2023-09-30 16:46] LABS: ALBUMIN 2.6 g/dl (3.4-5.0); BLOOD UREA NITROGEN 37.2 mg/dL (7-18)
[2023-09-30 16:49] LABS: CREATININE 1.6 mg/dL (0.55-1.3)
[2023-09-30 16:51] LABS: BILIRUBIN,TOTAL 0.3 mg/dL (0.2-1); TOT PROT 5.6 g/dl (6.4-8.2)
[2023-10-01 07:14] LABS: HEMATOCRIT 27.9 % (32.4-45.2); HEMOGLOBIN 9.5 GM/dL (10.7-15.3); MCH 28.2 pg (25.7-33.7); MCHC 34.1 g/dl (32.0-36.0); MEAN CELL VOLUME 82.8 fl (80-96); MEAN PLT VOLUME 7.4 fl (7.5-11.1); PLATELET COUNT 143 10^3/uL (134-434); RBC 3.37 M/mm3 (3.60-5.2); RDW 16.6 % (11.6-15.6)
[2023-10-01 07:23] LABS: ALBUMIN 2.7 g/dl (3.4-5.0); CALCIUM 7.6 mg/dL (8.5-10.1)
[2023-10-01 07:24] LABS: BLOOD UREA NITROGEN 34.7 mg/dL (7-18)
[2023-10-01 07:26] LABS: CREATININE 1.5 mg/dL (0.55-1.3)
[2023-10-01 07:28] LABS: BILIRUBIN,TOTAL 0.4 mg/dL (0.2-1); TOT PROT 5.7 g/dl (6.4-8.2)
[2023-10-01 09:12] LABS: ANISOCYTOSIS 0; MACROCYTOSIS 0
[2023-10-01] MEDS: predniSONE 20 MG TABLET (UD) PO SCH (10:23)
[2023-10-01] MEDS: PANTOPRAZOLE 40 MG TABLET PO SCH (10:23)
[2023-10-01 14:12] VITALS: BP 111/65; PULSE 85; RESP 20; TEMP 98.2
== END 2023-10-01 17:51 | DRG 641 ==
LOC: JER 04:33 → JERBED 07:51 → OBSVTOIN 13:10 → J4W 18:52
PROVIDERS: ADMIT Family Medicine; ATTEND Family Medicine
DX: E83.51 Hypocalcemia (principal); C90.00 Multiple myeloma not having achieved remission; I13.0 Hypertensive heart and chronic kidney disease with heart failure and stage 1 through stage 4 chronic kidney disease, or unspecified chronic kidney disease; I50.32 Chronic diastolic (congestive) heart failure; I25.10 Atherosclerotic heart disease of native coronary artery without angina pectoris; E03.9 Hypothyroidism, unspecified; E87.6 Hypokalemia; N18.9 Chronic kidney disease, unspecified; E11.22 Type 2 diabetes mellitus with diabetic chronic kidney disease; R79.89 Other specified abnormal findings of blood chemistry; D64.9 Anemia, unspecified
CPT/HCPCS: 0241U-QW; 36415; 71045-TC-FY; 76705-TC; 80053; 82105; 82306; 82728; 82962; 83540; 83550; 83735; 84100; 84443; 84484; 85025; 85610; 85730; 86850; 86900; 86901; 93005; 93010; 93306-TC; 96372; 99285-25; G0378; J0895

== ENCOUNTER 2023-10-02 07:32 | Inpatient (IN) | payer OTHER, MEDICARE ==
[2023-10-02 07:49] VITALS: BMI 27.3
[2023-10-02] MEDS ORDERED: FAMOTIDINE 20 MG/50 ML IVPB 20 MG/50 ML MG IVPB ONE (09:10)
[2023-10-02] MEDS ORDERED: MAG HYDROX/AL HYDROX/SIMETH 30 ML UNIT-DOSE CUP ONE (09:10)
[2023-10-02 09:12] LABS: HEMATOCRIT 25.3 % (32.4-45.2); HEMOGLOBIN 8.5 GM/dL (10.7-15.3); MCHC 33.7 g/dl (32.0-36.0); MEAN CELL VOLUME 83.2 fl (80-96); MEAN PLT VOLUME 7.9 fl (7.5-11.1); PLATELET COUNT 119 10^3/uL (134-434); RBC 3.04 M/mm3 (3.60-5.2); RDW 16.2 % (11.6-15.6); WHITE BLOOD COUNT 6.1 K/mm3 (4.0-10.0)
[2023-10-02 09:19] LABS: INR 0.97 (0.83-1.09); PROTHROMBIN TIME (PATIENT) 11.2 SEC (9.7-13.0)
[2023-10-02] MEDS: MAG HYDROX/AL HYDROX/SIMETH 30 ML UNIT-DOSE CUP PO ONE (09:28)
[2023-10-02] MEDS: FAMOTIDINE 20 MG/50 ML IVPB 20 MG/50 ML MG IVPB ONE (09:28)
[2023-10-02 09:45] LABS: CHLORIDE 104 mmol/L (98-107); SODIUM 140 mmol/L (136-145)
[2023-10-02 09:48] LABS: ACTIVATED PTT 16.6 SECONDS (25.2-36.5); ALBUMIN 2.5 g/dl (3.4-5.0); ANION GAP 9 mmol/L (4-13); BLOOD UREA NITROGEN 44.7 mg/dL (7-18); CO2 28 mmol/L (21-32); GLUCOSE,RANDOM 123 mg/dL (74-106); MAGNESIUM 1.9 mg/dL (1.8-2.4)
[2023-10-02 09:51] LABS: CREATININE 1.5 mg/dL (0.55-1.3); PHOSPHOROUS 3.6 mg/dL (2.5-4.9)
[2023-10-02 09:52] LABS: BILIRUBIN,TOTAL 0.4 mg/dL (0.2-1); SGOT/AST 99 U/L (15-37)
[2023-10-02 09:53] LABS: TOT PROT 5.5 g/dl (6.4-8.2)
[2023-10-02 10:01] LABS: ANISOCYTOSIS 0; MACROCYTOSIS 0
[2023-10-02 10:06] LABS: ALK PHOS 289 U/L (45-117); CALCIUM 6.8 mg/dL (8.5-10.1); SGPT/ALT 141 U/L (13-61)
[2023-10-02] MEDS ORDERED: CALCIUM GLUCONATE 10% - 1,000 MG/10 ML VIAL ONE (10:13)
[2023-10-02] MEDS: CALCIUM GLUCONATE 10% - 1,000 MG/10 ML VIAL IVPB ONE (10:23)
[2023-10-02] MEDS: CALCITRIOL 0.25 MCG CAPSULE (FP) PO SCH (21:43)
[2023-10-02] MEDS: CALCIUM (OYSTER SHELL) 500 MG TABLET (FP) PO SCH (21:44)
[2023-10-02] MEDS: ALLOPURINOL 100 MG TABLET (FP) PO SCH (21:44)
[2023-10-02] MEDS ORDERED: CALCIUM (OYSTER SHELL) 500 MG TABLET (FP) PO SCH (22:00)
[2023-10-02] MEDS ORDERED: CALCITRIOL 0.25 MCG CAPSULE (FP) PO SCH (22:00)
[2023-10-03] MEDS ORDERED: TORSEMIDE 20 MG TABLET (FP) PO SCH (06:00)
[2023-10-03] MEDS: LEVOTHYROXINE NA 100 MCG TABLET (FP) PO SCH (06:21)
[2023-10-03] MEDS: LEVOTHYROXINE NA 75 MCG TABLET (FP) PO SCH (06:21)
[2023-10-03 09:06] LABS: HEMATOCRIT 22.9 % (32.4-45.2); HEMOGLOBIN 7.6 GM/dL (10.7-15.3); MCH 27.5 pg (25.7-33.7); MEAN CELL VOLUME 83.3 fl (80-96); MEAN PLT VOLUME 7.6 fl (7.5-11.1); PLATELET COUNT 105 10^3/uL (134-434); RBC 2.75 M/mm3 (3.60-5.2); RDW 16.2 % (11.6-15.6); WHITE BLOOD COUNT 3.6 K/mm3 (4.0-10.0)
[2023-10-03 09:33] LABS: CHLORIDE 105 mmol/L (98-107); POTASSIUM 3.6 mmol/L (3.5-5.1); SODIUM 138 mmol/L (136-145)
[2023-10-03 09:37] LABS: BLOOD UREA NITROGEN 26.2 mg/dL (7-18); GLUCOSE,RANDOM 101 mg/dL (74-106)
[2023-10-03 09:38] LABS: ANION GAP 2 mmol/L (4-13); CO2 31 mmol/L (21-32)
[2023-10-03 09:39] LABS: ALBUMIN 2.2 g/dl (3.4-5.0); ANISOCYTOSIS 0; MACROCYTOSIS 0; MAGNESIUM 1.8 mg/dL (1.8-2.4)
[2023-10-03 09:42] LABS: CREATININE 1.2 mg/dL (0.55-1.3); PHOSPHOROUS 2.9 mg/dL (2.5-4.9); SGOT/AST 77 U/L (15-37); SGPT/ALT 113 U/L (13-61)
[2023-10-03 09:43] LABS: BILIRUBIN,TOTAL 0.5 mg/dL (0.2-1); TOT PROT 4.7 g/dl (6.4-8.2)
[2023-10-03 09:45] LABS: ALK PHOS 265 U/L (45-117)
[2023-10-03 09:52] LABS: CALCIUM 6.9 mg/dL (8.5-10.1)
[2023-10-03] MEDS ORDERED: [UNRECOGNIZED DRUG - OTHER] IM SCH (10:00)
[2023-10-03] MEDS: FOLIC ACID 1 MG TABLET (FP) PO SCH (10:19)
[2023-10-03] MEDS: FAMOTIDINE 20 MG TABLET PO SCH (10:19)
[2023-10-03] MEDS: TOLTERODINE TARTRATE 2 MG TABLET PO SCH (10:20)
[2023-10-03] MEDS: metoPROLOL SUCCINATE 25 MG TAB.SR.24H (FP) PO SCH (10:20)
[2023-10-03] MEDS: CALCIUM GLUC IN NACL, ISO-OSM 1 GM/50 ML BAG IVPB ONE (13:00)
[2023-10-03] MEDS: TORSEMIDE 20 MG TABLET (FP) PO SCH (18:29)
[2023-10-03] MEDS: [UNRECOGNIZED DRUG - OTHER] IM SCH (21:22)
[2023-10-05] MEDS: ACETAMINOPHEN 1000 MG/100 ML BAG IVPB ONE ×2 (05:15→21:54)
[2023-10-05 08:20] LABS: HEMATOCRIT 21.2 % (32.4-45.2); HEMOGLOBIN 7.3 GM/dL (10.7-15.3); MCH 28.1 pg (25.7-33.7); MCHC 34.2 g/dl (32.0-36.0); MEAN CELL VOLUME 82.4 fl (80-96); MEAN PLT VOLUME 7.7 fl (7.5-11.1); PLATELET COUNT 94 10^3/uL (134-434); RBC 2.58 M/mm3 (3.60-5.2); RDW 16.4 % (11.6-15.6); WHITE BLOOD COUNT 3.8 K/mm3 (4.0-10.0)
[2023-10-05 08:52] LABS: ALBUMIN 2.2 g/dl (3.4-5.0); CALCIUM 7.1 mg/dL (8.5-10.1)
[2023-10-05 08:53] LABS: BLOOD UREA NITROGEN 19.1 mg/dL (7-18)
[2023-10-05 08:55] LABS: CREATININE 1.4 mg/dL (0.55-1.3)
[2023-10-05 08:57] LABS: BILIRUBIN,TOTAL 0.6 mg/dL (0.2-1); TOT PROT 4.9 g/dl (6.4-8.2)
[2023-10-05 10:59] LABS: ANISOCYTOSIS 0; HELMET CELLS 0; HOWELL-JOLLY BODIES 0; MACROCYTOSIS 0; OVALOCYTE 0; ROULEAU 0; SICKELED CELLS 0; TARGET CELLS 0; TEAR DROP CELLS 0; TOXIC GRANULATION 0
[2023-10-06] MEDS: HYDROCORTISONE SOD SUCCINATE 100 MG/2 ML VIAL IVPB ONE (01:20)
[2023-10-06 08:20] LABS: BASO % 0.4 % (0-2.0); EOS % 0.2 % (0-4.5); HEMATOCRIT 21.1 % (32.4-45.2); HEMOGLOBIN 7.1 GM/dL (10.7-15.3); LYMPH % 25.1 % (8-40); MCH 27.8 pg (25.7-33.7); MCHC 33.7 g/dl (32.0-36.0); MEAN CELL VOLUME 82.6 fl (80-96); MEAN PLT VOLUME 7.9 fl (7.5-11.1); MONO % 6.2 % (3.8-10.2); NEUT % 68.1 % (42.8-82.8); PLATELET COUNT 100 10^3/uL (134-434); RBC 2.55 M/mm3 (3.60-5.2); RDW 15.9 % (11.6-15.6); WHITE BLOOD COUNT 3.7 K/mm3 (4.0-10.0)
[2023-10-06 08:41] LABS: POTASSIUM 3.4 mmol/L (3.5-5.1)
[2023-10-06 08:50] LABS: CALCIUM 8.1 mg/dL (8.5-10.1)
[2023-10-06 08:51] LABS: ALBUMIN 2.2 g/dl (3.4-5.0); BLOOD UREA NITROGEN 19.9 mg/dL (7-18)
[2023-10-06 08:54] LABS: CREATININE 1.5 mg/dL (0.55-1.3)
[2023-10-06 08:55] LABS: BILIRUBIN,TOTAL 0.8 mg/dL (0.2-1); TOT PROT 5.2 g/dl (6.4-8.2)
[2023-10-06] MEDS: predniSONE 20 MG TABLET (UD) PO SCH (09:50)
[2023-10-06] MEDS: POTASSIUM CHLORIDE TABS 10 MEQ TABLET.ER (FP) PO ONE (13:14)
[2023-10-06] MEDS ORDERED: ACETAMINOPHEN 325 MG TABLET (FP) PO PRN (13:37)
[2023-10-07 07:28] LABS: HEMATOCRIT 25.9 % (32.4-45.2); HEMOGLOBIN 8.9 GM/dL (10.7-15.3); MCH 28.6 pg (25.7-33.7); MCHC 34.5 g/dl (32.0-36.0); MEAN CELL VOLUME 82.8 fl (80-96); MEAN PLT VOLUME 7.6 fl (7.5-11.1); PLATELET COUNT 111 10^3/uL (134-434); RBC 3.12 M/mm3 (3.60-5.2); RDW 15.6 % (11.6-15.6); WHITE BLOOD COUNT 5.7 K/mm3 (4.0-10.0)
[2023-10-07 07:53] LABS: POTASSIUM 3.5 mmol/L (3.5-5.1)
[2023-10-07 07:59] LABS: ALBUMIN 2.4 g/dl (3.4-5.0); BLOOD UREA NITROGEN 29.8 mg/dL (7-18); CALCIUM 9.3 mg/dL (8.5-10.1)
[2023-10-07 08:01] LABS: CREATININE 1.6 mg/dL (0.55-1.3)
[2023-10-07 08:03] LABS: BILIRUBIN,TOTAL 0.6 mg/dL (0.2-1); TOT PROT 6.1 g/dl (6.4-8.2)
[2023-10-07 17:58] LABS: EPI CELLS >36 /uL (0-25.1); HYALINE CASTS 0 /uL (0-3.1); URINE APPEARANCE CLEAR; URINE BACTERIA 2526 /uL (0-1359); URINE BILIRUBIN NEGATIVE (NEGATIVE); URINE COLOR YELLOW; URINE GLUCOSE (UA) 1+ (NEGATIVE); URINE KETONE NEGATIVE (NEGATIVE); URINE LEUK ESTERASE TRACE (NEGATIVE); URINE NITRITE NEGATIVE (NEGATIVE); URINE PROTEIN TRACE (NEGATIVE); URINE UROBILINOGEN 0.2 mg/dL (0.2-1.0); URINE WBC 78 /uL (0-25.8)
[2023-10-07 19:02] LABS: URINE RBC 44.3 /uL (0-23.9)
[2023-10-08 08:59] LABS: HEMATOCRIT 29.9 % (32.4-45.2); HEMOGLOBIN 10.2 GM/dL (10.7-15.3); MCH 28.2 pg (25.7-33.7); MCHC 34.1 g/dl (32.0-36.0); MEAN CELL VOLUME 82.7 fl (80-96); MEAN PLT VOLUME 8.2 fl (7.5-11.1); PLATELET COUNT 104 10^3/uL (134-434); RBC 3.62 M/mm3 (3.60-5.2); RDW 16.3 % (11.6-15.6); WHITE BLOOD COUNT 4.6 K/mm3 (4.0-10.0)
[2023-10-08 09:31] LABS: POTASSIUM 3.1 mmol/L (3.5-5.1)
[2023-10-08 09:35] LABS: BLOOD UREA NITROGEN 33.5 mg/dL (7-18); MAGNESIUM 1.9 mg/dL (1.8-2.4)
[2023-10-08 09:38] LABS: CREATININE 1.4 mg/dL (0.55-1.3)
[2023-10-08 09:40] LABS: CALCIUM 9.1 mg/dL (8.5-10.1)
[2023-10-08] MEDS: CALCITRIOL 0.25 MCG CAPSULE (FP) PO SCH (10:06)
[2023-10-08] MEDS: POTASSIUM CHLORIDE TABS 20 MEQ TABLET.ER (FP) PO ONE (11:13)
[2023-10-08 14:08] VITALS: BP 127/65; PULSE 82; RESP 20; TEMP 98.4
[2023-10-08] MEDS: PORTA CATH FLUSH 10 ML IVPUSH PRN (14:34)
== END 2023-10-08 17:55 | disposition home health service (06) | DRG 842 ==
LOC: JER 07:32 → JERBED 11:34 → UNDOADMOB 11:34 → INTOOBSV 11:34 → JERBED 14:02 → J7W 14:10 → OBSVTOIN 10-06 11:12 → J7W 10-08 00:06
PROVIDERS: ADMIT Internal Medicine; ATTEND Internal Medicine
PROC: 30233N1 Transfusion of Nonautologous Red Blood Cells into Peripheral Vein, Percutaneous Approach (ICD-10-PCS; principal; 2023-10-06)
DX: C90.00 Multiple myeloma not having achieved remission (principal); E83.51 Hypocalcemia; D64.9 Anemia, unspecified; I12.9 Hypertensive chronic kidney disease with stage 1 through stage 4 chronic kidney disease, or unspecified chronic kidney disease; E11.9 Type 2 diabetes mellitus without complications; E78.5 Hyperlipidemia, unspecified; I25.10 Atherosclerotic heart disease of native coronary artery without angina pectoris; N18.9 Chronic kidney disease, unspecified; E87.6 Hypokalemia; E03.9 Hypothyroidism, unspecified
CPT/HCPCS: 36415; 36430; 71045-TC-FY; 80048; 80053; 81003; 82533; 82962; 83735; 84100; 84484; 85025; 85027; 85610; 85730; 86850; 86900; 86901; 86922; 87086; 93005; 93010; 97116-GP; 97161-GP; 99285-25; G0378; J0131; J0895; P9058

== ENCOUNTER 2023-10-14 14:13 | Inpatient (IN) | payer OTHER, MEDICARE ==
[2023-10-14 16:11] LABS: PH,URINE 6.5 (5.0-8.0); URINE APPEARANCE CLEAR; URINE BILIRUBIN NEGATIVE (NEGATIVE); URINE COLOR YELLOW; URINE GLUCOSE (UA) NEGATIVE (NEGATIVE); URINE KETONE NEGATIVE (NEGATIVE); URINE LEUK ESTERASE NEGATIVE (NEGATIVE); URINE NITRITE NEGATIVE (NEGATIVE); URINE PROTEIN NEGATIVE (NEGATIVE); URINE UROBILINOGEN 0.2 mg/dL (0.2-1.0)
[2023-10-14 17:00] LABS: HEMATOCRIT 32.5 % (32.4-45.2); HEMOGLOBIN 10.8 GM/dL (10.7-15.3); MCH 27.5 pg (25.7-33.7); MCHC 33.2 g/dl (32.0-36.0); MEAN CELL VOLUME 82.9 fl (80-96); MEAN PLT VOLUME 8.4 fl (7.5-11.1); PLATELET COUNT 150 10^3/uL (134-434); RBC 3.92 M/mm3 (3.60-5.2); WHITE BLOOD COUNT 5.4 K/mm3 (4.0-10.0)
[2023-10-14] MEDS: SODIUM CHLORIDE 1,000 ML IV STA ×2 (17:15→18:15)
[2023-10-14 17:17] LABS: POTASSIUM 4.8 mmol/L (3.5-5.1)
[2023-10-14 17:19] LABS: ALBUMIN 2.5 g/dl (3.4-5.0)
[2023-10-14 17:20] LABS: BLOOD UREA NITROGEN 34.2 mg/dL (7-18)
[2023-10-14 17:23] LABS: CREATININE 1.6 mg/dL (0.55-1.3)
[2023-10-14 17:24] LABS: BILIRUBIN,TOTAL 0.6 mg/dL (0.2-1); TOT PROT 6.1 g/dl (6.4-8.2)
[2023-10-14 17:34] LABS: CALCIUM 13.4 mg/dL (8.5-10.1)
[2023-10-14 17:36] LABS: ANISOCYTOSIS 2+; MACROCYTOSIS 0; OVALOCYTE 1+
[2023-10-14 18:35] VITALS: BMI 29.6
[2023-10-14] MEDS: SODIUM CHLORIDE 0.45% 1,000 ML IV SCH (19:22)
[2023-10-14] MEDS: [UNRECOGNIZED DRUG - OTHER] IM SCH (19:26)
[2023-10-14] MEDS: HEPARIN NA (PORCINE) 5,000 UNITS/ML 1ML VIAL SQ SCH (21:22)
[2023-10-15] MEDS: LEVOTHYROXINE 100 MCG, LEVOTHYROXINE 75 MCG PO SCH (06:06)
[2023-10-15] MEDS ORDERED: LEVOTHYROXINE NA 75 MCG TABLET (FP) PO SCH (07:00)
[2023-10-15 09:19] LABS: HEMATOCRIT 24.2 % (32.4-45.2); HEMOGLOBIN 8.2 GM/dL (10.7-15.3); MCH 28.1 pg (25.7-33.7); MCHC 34.1 g/dl (32.0-36.0); MEAN CELL VOLUME 82.5 fl (80-96); PLATELET COUNT 121 10^3/uL (134-434); RBC 2.93 M/mm3 (3.60-5.2); RDW 15.5 % (11.6-15.6); WHITE BLOOD COUNT 3.7 K/mm3 (4.0-10.0)
[2023-10-15 09:45] LABS: POTASSIUM 3.6 mmol/L (3.5-5.1)
[2023-10-15 10:18] LABS: CALCIUM 11.4 mg/dL (8.5-10.1)
[2023-10-15 10:19] LABS: BLOOD UREA NITROGEN 26.1 mg/dL (7-18)
[2023-10-15 10:21] LABS: MAGNESIUM 2.1 mg/dL (1.8-2.4)
[2023-10-15 10:22] LABS: CREATININE 1.4 mg/dL (0.55-1.3)
[2023-10-15 10:23] LABS: BILIRUBIN,TOTAL 0.6 mg/dL (0.2-1)
[2023-10-15 10:24] LABS: ANISOCYTOSIS 0; MACROCYTOSIS 0; PHOSPHOROUS 2.5 mg/dL (2.5-4.9)
[2023-10-15] MEDS: SODIUM CHLORIDE 1,000 ML IV SCH (10:24)
[2023-10-15] MEDS: ACETAMINOPHEN 325 MG TABLET (FP) PO PRN (21:32)
[2023-10-16 08:57] LABS: HEMATOCRIT 22.2 % (32.4-45.2); HEMOGLOBIN 7.5 GM/dL (10.7-15.3); MCH 28.1 pg (25.7-33.7); MCHC 33.6 g/dl (32.0-36.0); MEAN CELL VOLUME 83.7 fl (80-96); MEAN PLT VOLUME 8.2 fl (7.5-11.1); PLATELET COUNT 118 10^3/uL (134-434); RBC 2.66 M/mm3 (3.60-5.2); RDW 15.6 % (11.6-15.6); WHITE BLOOD COUNT 3.8 K/mm3 (4.0-10.0)
[2023-10-16 09:19] LABS: POTASSIUM 3.3 mmol/L (3.5-5.1)
[2023-10-16 09:26] LABS: BILIRUBIN,TOTAL 0.5 mg/dL (0.2-1); BLOOD UREA NITROGEN 19.6 mg/dL (7-18)
[2023-10-16 09:27] LABS: ALBUMIN 1.9 g/dl (3.4-5.0); TOT PROT 4.9 g/dl (6.4-8.2)
[2023-10-16 09:29] LABS: CALCIUM 10.5 mg/dL (8.5-10.1); CREATININE 1.3 mg/dL (0.55-1.3)
[2023-10-16] MEDS: SODIUM CHLORIDE 1,000 ML IV SCH (16:31)
[2023-10-16] MEDS: POTASSIUM CHLORIDE ORAL LIQUID 20 MEQ/15 ML PO ONE (16:31)
[2023-10-17 11:25] LABS: HEMATOCRIT 24.6 % (32.4-45.2); HEMOGLOBIN 8.2 GM/dL (10.7-15.3); MCH 27.9 pg (25.7-33.7); MCHC 33.3 g/dl (32.0-36.0); MEAN CELL VOLUME 83.7 fl (80-96); MEAN PLT VOLUME 7.9 fl (7.5-11.1); PLATELET COUNT 122 10^3/uL (134-434); RBC 2.94 M/mm3 (3.60-5.2); RDW 15.9 % (11.6-15.6); WHITE BLOOD COUNT 3.5 K/mm3 (4.0-10.0)
[2023-10-17 11:46] LABS: ALBUMIN 1.8 g/dl (3.4-5.0); BLOOD UREA NITROGEN 14.8 mg/dL (7-18); CALCIUM 9.6 mg/dL (8.5-10.1)
[2023-10-17 11:51] LABS: BILIRUBIN,TOTAL 0.5 mg/dL (0.2-1); CREATININE 1.2 mg/dL (0.55-1.3)
[2023-10-17] MEDS: TORSEMIDE 20 MG TABLET (FP) PO SCH (17:14)
[2023-10-17] MEDS: SODIUM CHLORIDE 1,000 ML IV SCH (17:14)
[2023-10-19 08:09] LABS: POTASSIUM 3.2 mmol/L (3.5-5.1)
[2023-10-19 08:18] LABS: CALCIUM 8.5 mg/dL (8.5-10.1)
[2023-10-19 08:19] LABS: ALBUMIN 1.8 g/dl (3.4-5.0)
[2023-10-19 08:22] LABS: CREATININE 1.1 mg/dL (0.55-1.3)
[2023-10-19 08:23] LABS: BILIRUBIN,TOTAL 0.7 mg/dL (0.2-1)
[2023-10-19 08:34] LABS: HEMATOCRIT 21.8 % (32.4-45.2); HEMOGLOBIN 7.4 GM/dL (10.7-15.3); MCH 27.8 pg (25.7-33.7); MCHC 33.9 g/dl (32.0-36.0); MEAN PLT VOLUME 7.8 fl (7.5-11.1); PLATELET COUNT 116 10^3/uL (134-434); RBC 2.65 M/mm3 (3.60-5.2); RDW 15.9 % (11.6-15.6); WHITE BLOOD COUNT 3.6 K/mm3 (4.0-10.0)
[2023-10-19] MEDS: POTASSIUM CHLORIDE ORAL LIQUID 20 MEQ/15 ML PO ONE (09:33)
[2023-10-19] MEDS: DIPHENOXYLATE 2.5/ATROPINE.025 1 COMBO TABLET PO PRN (09:36)
[2023-10-19 10:17] LABS: ANISOCYTOSIS 0; HELMET CELLS 0; HOWELL-JOLLY BODIES 0; MACROCYTOSIS 0; OVALOCYTE 0; ROULEAU 0; SICKELED CELLS 0; TARGET CELLS 0; TEAR DROP CELLS 0; TOXIC GRANULATION 0
[2023-10-19 17:31] LABS: IRON SERUM 141 ug/dL (50-175); TOTAL IRON BINDING CAPACITY 143 ug/dL (250-450)
[2023-10-20 08:44] LABS: HEMATOCRIT 21.6 % (32.4-45.2); HEMOGLOBIN 7.4 GM/dL (10.7-15.3); MEAN CELL VOLUME 82.3 fl (80-96); MEAN PLT VOLUME 7.6 fl (7.5-11.1); PLATELET COUNT 112 10^3/uL (134-434); RBC 2.63 M/mm3 (3.60-5.2); WHITE BLOOD COUNT 3.3 K/mm3 (4.0-10.0)
[2023-10-20 08:55] LABS: POTASSIUM 3.4 mmol/L (3.5-5.1)
[2023-10-20 08:57] LABS: CALCIUM 7.9 mg/dL (8.5-10.1)
[2023-10-20 08:58] LABS: ALBUMIN 1.9 g/dl (3.4-5.0); BLOOD UREA NITROGEN 17.6 mg/dL (7-18)
[2023-10-20 09:01] LABS: CREATININE 1.2 mg/dL (0.55-1.3)
[2023-10-20 09:02] LABS: BILIRUBIN,TOTAL 0.5 mg/dL (0.2-1)
[2023-10-20 09:03] LABS: TOT PROT 5.1 g/dl (6.4-8.2)
[2023-10-20 09:19] LABS: ANISOCYTOSIS 1+; MACROCYTOSIS 0
[2023-10-20] MEDS: POTASSIUM CHLORIDE ORAL LIQUID 20 MEQ/15 ML PO ONE (15:24)
[2023-10-21] MEDS: POTASSIUM CHLORIDE ORAL LIQUID 20 MEQ/15 ML PO ONE (16:36)
[2023-10-21] MEDS: FUROSEMIDE 40 MG TABLET (FP) PO SCH (16:36)
[2023-10-22 08:26] LABS: HEMATOCRIT 23.2 % (32.4-45.2); HEMOGLOBIN 8.1 GM/dL (10.7-15.3); MCH 28.7 pg (25.7-33.7); MCHC 34.9 g/dl (32.0-36.0); MEAN CELL VOLUME 82.2 fl (80-96); MEAN PLT VOLUME 7.9 fl (7.5-11.1); PLATELET COUNT 112 10^3/uL (134-434); RBC 2.83 M/mm3 (3.60-5.2); WHITE BLOOD COUNT 4.4 K/mm3 (4.0-10.0)
[2023-10-22 08:42] LABS: POTASSIUM 3.5 mmol/L (3.5-5.1)
[2023-10-22 08:52] LABS: CALCIUM 7.4 mg/dL (8.5-10.1)
[2023-10-22 08:53] LABS: BLOOD UREA NITROGEN 15.5 mg/dL (7-18)
[2023-10-22 08:56] LABS: CREATININE 1.1 mg/dL (0.55-1.3)
[2023-10-22] MEDS ORDERED: FENTANYL CITRATE/PF 50 MCG/ML VIAL ONE (10:01)
[2023-10-22] MEDS ORDERED: MIDAZOLAM HCL 2 MG/2 ML SINGLE DOSE VIAL ONE (10:01)
[2023-10-22] MEDS: LOPERAMIDE HCL 2 MG CAPSULE PO ONE (18:03)
[2023-10-22] MEDS ORDERED: LOPERAMIDE HCL 2 MG CAPSULE PO PRN (21:32)
[2023-10-23 06:00] VITALS: BP 117/52; PULSE 86; RESP 17; TEMP 98.2
== END 2023-10-23 11:11 | DRG 841 ==
LOC: JER 14:13 → JERBED 16:42 → J7W 18:02
PROVIDERS: ADMIT Internal Medicine; ATTEND Internal Medicine
PROC: 30233N1 Transfusion of Nonautologous Red Blood Cells into Peripheral Vein, Percutaneous Approach (ICD-10-PCS; principal; 2023-10-20)
PROC: 07DR3ZX Extraction of Iliac Bone Marrow, Percutaneous Approach, Diagnostic (ICD-10-PCS; 2023-10-22)
DX: C90.00 Multiple myeloma not having achieved remission (principal); N17.9 Acute kidney failure, unspecified; I25.10 Atherosclerotic heart disease of native coronary artery without angina pectoris; E83.52 Hypercalcemia; E83.111 Hemochromatosis due to repeated red blood cell transfusions; K21.9 Gastro-esophageal reflux disease without esophagitis; K76.0 Fatty (change of) liver, not elsewhere classified; E03.9 Hypothyroidism, unspecified; H40.9 Unspecified glaucoma; K57.90 Diverticulosis of intestine, part unspecified, without perforation or abscess without bleeding; E87.6 Hypokalemia; D47.2 Monoclonal gammopathy; I12.9 Hypertensive chronic kidney disease with stage 1 through stage 4 chronic kidney disease, or unspecified chronic kidney disease; N18.9 Chronic kidney disease, unspecified; E11.22 Type 2 diabetes mellitus with diabetic chronic kidney disease; E11.65 Type 2 diabetes mellitus with hyperglycemia; R78.89 Finding of other specified substances, not normally found in blood; D46.9 Myelodysplastic syndrome, unspecified
CPT/HCPCS: 0241U-QW; 20225; 36415; 36430; 70450-TC; 71046-TC-FY; 73560-TC-RT-FY; 74018-TC-FY; 76705-TC; 80048; 80053; 81003; 82140; 82310; 82728; 83540; 83550; 83735; 83970; 84100; 84443; 85025; 85027; 86850; 86900; 86901; 86922; 87086; 88300-TC; 93005; 93010; 97116-GP; 97162-GP; 99285-25; J0895; J1644; P9058

== ENCOUNTER 2023-10-30 07:58 | Day surgery (SDC) | payer OTHER, MEDICARE ==
[~2023-10-30 07:58] MED LIST changes: +[UNRECOGNIZED DRUG - OTHER] IM ONE; -[UNRECOGNIZED DRUG - OTHER] IM ONE
[2023-10-30] MEDS ORDERED: FUROSEMIDE 40 MG TABLET (FP) PO ONE (10:00)
[2023-10-30] MEDS: FUROSEMIDE 40 MG TABLET (FP) PO ONE (13:04)
[2023-10-30] MEDS: PORTA CATH FLUSH 10 ML IVPUSH PRN (16:50)
[2023-10-30 17:06] VITALS: RESP 16
[2023-10-30 17:08] VITALS: PULSE 71; TEMP 97.6
[2023-10-30 17:17] VITALS: BP 106/57
[2023-10-30 18:46] LABS: BASO % 0.4 % (0-2.0); EOS % 0.1 % (0-4.5); HEMATOCRIT 31.7 % (32.4-45.2); LYMPH % 32.5 % (8-40); MCH 28.9 pg (25.7-33.7); MCHC 34.5 g/dl (32.0-36.0); MEAN CELL VOLUME 83.7 fl (80-96); MEAN PLT VOLUME 7.7 fl (7.5-11.1); MONO % 6.6 % (3.8-10.2); NEUT % 60.4 % (42.8-82.8); PLATELET COUNT 192 10^3/uL (134-434); RBC 3.79 M/mm3 (3.60-5.2); RDW 16.3 % (11.6-15.6); WHITE BLOOD COUNT 6.8 K/mm3 (4.0-10.0)
[2023-10-30 19:27] LABS: ANISOCYTOSIS 0; MACROCYTOSIS 0
== END 2023-10-30 17:00 | disposition home or self-care (01) ==
LOC: JONCBLOOD 07:58 → J7W 07:59 → JONCBLOOD 17:00
PROVIDERS: ATTEND Internal Medicine Hematology & Oncology
PROC: 30233N1 Transfusion of Nonautologous Red Blood Cells into Peripheral Vein, Percutaneous Approach (ICD-10-PCS; principal; 2023-10-30)
DX: C90.00 Multiple myeloma not having achieved remission (principal); K55.21 Angiodysplasia of colon with hemorrhage
CPT/HCPCS: 36415; 36430; 85025; 86850; 86900; 86901; 86922; P9058

== ENCOUNTER 2023-11-10 19:39 | Inpatient (IN) | payer OTHER, MEDICARE ==
[2023-11-10 19:43] VITALS: BMI 25.8
[2023-11-10] MEDS: PRAMIPEXOLE DIHYDROCHLORIDE 1.5 MG TABLET PO ONE (21:16)
[2023-11-10 21:28] LABS: HEMATOCRIT 27.5 % (32.4-45.2); HEMOGLOBIN 9.6 GM/dL (10.7-15.3); MCH 28.9 pg (25.7-33.7); MCHC 34.9 g/dl (32.0-36.0); MEAN CELL VOLUME 82.9 fl (80-96); MEAN PLT VOLUME 7.4 fl (7.5-11.1); PLATELET COUNT 115 10^3/uL (134-434); RBC 3.32 M/mm3 (3.60-5.2); RDW 16.4 % (11.6-15.6); WHITE BLOOD COUNT 7.2 K/mm3 (4.0-10.0)
[2023-11-10 21:30] LABS: INR 1.17 (0.83-1.09); PROTHROMBIN TIME (PATIENT) 13.2 SEC (9.7-13.0)
[2023-11-10 21:33] LABS: ACTIVATED PTT 39.2 SECONDS (25.2-36.5)
[2023-11-10 22:12] LABS: ALBUMIN 2.5 g/dl (3.4-5.0); ALK PHOS 357 U/L (45-117); ANION GAP 10 mmol/L (4-13); BILIRUBIN,TOTAL 0.4 mg/dL (0.2-1); BLOOD UREA NITROGEN 14.3 mg/dL (7-18); CALCIUM 6.2 mg/dL (8.5-10.1); CHLORIDE 98 mmol/L (98-107); CO2 24 mmol/L (21-32); GLUCOSE,RANDOM 135 mg/dL (74-106); MAGNESIUM 1.6 mg/dL (1.8-2.4); PHOSPHOROUS 4.1 mg/dL (2.5-4.9); POTASSIUM 3.4 mmol/L (3.5-5.1); SGOT/AST 130 U/L (15-37); SGPT/ALT 138 U/L (13-61); SODIUM 133 mmol/L (136-145); TOT PROT 6.3 g/dl (6.4-8.2)
[2023-11-10 22:23] LABS: ANISOCYTOSIS 1+; MACROCYTOSIS 0; PLATELET ESTIMATE SIGNIFICANT INCREASE
[2023-11-10 22:48] LABS: EPI CELLS 12 /uL (0-25.1); HYALINE CASTS 1 /uL (0-3.1); URINE APPEARANCE TURBID; URINE BACTERIA >9,000 /uL (0-1359); URINE BILIRUBIN NEGATIVE (NEGATIVE); URINE COLOR DK YELLOW; URINE GLUCOSE (UA) NEGATIVE (NEGATIVE); URINE KETONE TRACE (NEGATIVE); URINE LEUK ESTERASE 3+ (NEGATIVE); URINE NITRITE POSITIVE (NEGATIVE); URINE PROTEIN 2+ (NEGATIVE); URINE RBC 57 /uL (0-23.9); URINE WBC 4157 /uL (0-25.8)
[2023-11-10] MEDS ORDERED: MAGNESIUM SULFATE IN WATER 2 GM/50 ML IVPB IVPB ONE (23:01)
[2023-11-10] MEDS: MAGNESIUM SULF 50% (8.12 MEQ/2 ML-1 GM VIAL) IVPB ONE (23:07)
[2023-11-11] MEDS ORDERED: CEFTRIAXONE 1 GM/50 ML BAG ONE (00:12)
[2023-11-11] MEDS: CEFTRIAXONE 1 GM in DEXTROSE 5%-WATER - 50 ML IVPB ONE (00:18)
[2023-11-11] MEDS: ONDANSETRON 4 MG/2 ML VIAL IVPUSH ONE (04:31)
[2023-11-11] MEDS ORDERED: LEVOTHYROXINE NA 150 MCG TABLET PO SCH (07:00)
[2023-11-11] MEDS: SODIUM CHLORIDE 250 ML IV STA (07:37)
[2023-11-11 08:38] LABS: HEMOGLOBIN 9.7 GM/dL (10.7-15.3); MCH 29.1 pg (25.7-33.7); MCHC 34.6 g/dl (32.0-36.0); MEAN CELL VOLUME 83.9 fl (80-96); MEAN PLT VOLUME 7.6 fl (7.5-11.1); PLATELET COUNT 115 10^3/uL (134-434); RBC 3.34 M/mm3 (3.60-5.2); RDW 16.7 % (11.6-15.6); WHITE BLOOD COUNT 8.2 K/mm3 (4.0-10.0)
[2023-11-11] MEDS: LEVOTHYROXINE 50 MCG, LEVOTHYROXINE 125 MCG PO SCH (08:38)
[2023-11-11 08:40] LABS: CHLORIDE 99 mmol/L (98-107); POTASSIUM 3.2 mmol/L (3.5-5.1); SODIUM 132 mmol/L (136-145)
[2023-11-11 08:45] LABS: ALBUMIN 2.4 g/dl (3.4-5.0); ANION GAP 8 mmol/L (4-13); BLOOD UREA NITROGEN 15.2 mg/dL (7-18); CO2 25 mmol/L (21-32); GLUCOSE,RANDOM 121 mg/dL (74-106)
[2023-11-11 08:48] LABS: CREATININE 1.2 mg/dL (0.55-1.3); SGOT/AST 125 U/L (15-37)
[2023-11-11 08:51] LABS: ALK PHOS 343 U/L (45-117)
[2023-11-11 08:52] LABS: BILIRUBIN,TOTAL 0.8 mg/dL (0.2-1)
[2023-11-11 08:53] LABS: CALCIUM 6.4 mg/dL (8.5-10.1); SGPT/ALT 120 U/L (13-61)
[2023-11-11] MEDS: CALCITRIOL 0.25 MCG CAPSULE (FP) PO SCH (10:36)
[2023-11-11] MEDS: TOLTERODINE TARTRATE 2 MG TABLET PO SCH (10:36)
[2023-11-11 10:51] LABS: PLATELET ESTIMATE SLT DECREASE
[2023-11-11] MEDS: CEFTRIAXONE 1 GM in DEXTROSE 5%-WATER - 50 ML IVPB SCH (13:28)
[2023-11-11] MEDS: POTASSIUM CHLORIDE ORAL LIQUID 20 MEQ/15 ML PO ONE (14:32)
[2023-11-11] MEDS: KCL 10 MEQ IVPB 10 MEQ/100 ML INFUS.BAG IVPB SCH (14:32)
[2023-11-11] MEDS: ACETAMINOPHEN 325 MG TABLET (FP) PO PRN (15:06)
[2023-11-11] MEDS: CALCIUM CARBONATE 650 MG TABLET PO SCH (15:07)
[2023-11-11] MEDS: CALCIUM GLUCONATE 10% - 1,000 MG/10 ML VIAL IVPB ONE (18:11)
[2023-11-11] MEDS: D5-NS + 40 MEQ KCL - 40 MEQ/1,000 ML INFUS.BAG IV SCH (18:17)
[2023-11-11] MEDS ORDERED: PORTA CATH FLUSH 10 ML IVPUSH PRN (18:25)
[2023-11-12 08:13] LABS: CHLORIDE 99 mmol/L (98-107); POTASSIUM 4.8 mmol/L (3.5-5.1); SODIUM 129 mmol/L (136-145)
[2023-11-12 08:25] LABS: ANION GAP 6 mmol/L (4-13); CO2 23 mmol/L (21-32); GLUCOSE,RANDOM 103 mg/dL (74-106); MAGNESIUM 1.8 mg/dL (1.8-2.4)
[2023-11-12 08:26] LABS: SGPT/ALT 109 U/L (13-61)
[2023-11-12 09:49] LABS: ALK PHOS 299 U/L (45-117); BILIRUBIN,TOTAL 0.5 mg/dL (0.2-1); CALCIUM 6.6 mg/dL (8.5-10.1); CREATININE 1.5 mg/dL (0.55-1.3); SGOT/AST 109 U/L (15-37); TOT PROT 5.2 g/dl (6.4-8.2)
[2023-11-12] MEDS: CALCITRIOL 0.25 MCG CAPSULE (FP) PO SCH (10:08)
[2023-11-12] MEDS: CALCIUM CARBONATE 650 MG TABLET PO SCH (13:25)
[2023-11-12] MEDS ORDERED: DIPHENOXYLATE 2.5/ATROPINE.025 1 COMBO TABLET PO ONE (18:28)
[2023-11-12] MEDS: SODIUM CHLORIDE 1,000 ML IV SCH (19:52)
[2023-11-12] MEDS: DIPHENOXYLATE 2.5/ATROPINE.025 1 COMBO TABLET PO ONE (21:18)
[2023-11-12] MEDS: MIRTAZAPINE 15 MG TABLET (FP) PO SCH (21:19)
[2023-11-12 22:53] LABS: EPI CELLS 32 /uL (0-25.1); HYALINE CASTS 1 /uL (0-3.1); PH,URINE 6.5 (5.0-8.0); URINE APPEARANCE TURBID; URINE BACTERIA 3108 /uL (0-1359); URINE BILIRUBIN NEGATIVE (NEGATIVE); URINE COLOR YELLOW; URINE GLUCOSE (UA) NEGATIVE (NEGATIVE); URINE KETONE NEGATIVE (NEGATIVE); URINE LEUK ESTERASE 3+ (NEGATIVE); URINE NITRITE POSITIVE (NEGATIVE); URINE PROTEIN 1+ (NEGATIVE); URINE RBC 7 /uL (0-23.9); URINE WBC 1670 /uL (0-25.8)
[2023-11-13] MEDS: TOLTERODINE TARTRATE LA 4 MG CAP.SR.24H (FP) PO SCH (09:44)
[2023-11-13 10:05] LABS: HEMOGLOBIN 8.6 GM/dL (10.7-15.3); MCH 28.8 pg (25.7-33.7); MCHC 34.2 g/dl (32.0-36.0); MEAN CELL VOLUME 84.2 fl (80-96); MEAN PLT VOLUME 7.6 fl (7.5-11.1); PLATELET COUNT 96 10^3/uL (134-434); RBC 2.97 M/mm3 (3.60-5.2); RDW 16.6 % (11.6-15.6); WHITE BLOOD COUNT 4.5 K/mm3 (4.0-10.0)
[2023-11-13 10:23] LABS: POTASSIUM 3.6 mmol/L (3.5-5.1)
[2023-11-13 10:28] LABS: CALCIUM 7.2 mg/dL (8.5-10.1)
[2023-11-13 10:29] LABS: BLOOD UREA NITROGEN 19.6 mg/dL (7-18)
[2023-11-13 10:32] LABS: CREATININE 1.1 mg/dL (0.55-1.3)
[2023-11-13 10:33] LABS: BILIRUBIN,TOTAL 0.4 mg/dL (0.2-1); TOT PROT 5.2 g/dl (6.4-8.2)
[2023-11-13 10:45] LABS: ANISOCYTOSIS 0; MACROCYTOSIS 0
[2023-11-13] MEDS: [UNRECOGNIZED DRUG - OTHER] IM SCH (10:49)
[2023-11-14 07:14] VITALS: BP 105/53; PULSE 106; TEMP 97.7
[2023-11-14 09:49] VITALS: RESP 16
[2023-11-14] MEDS ORDERED: CEFUROXIME AXETIL 500 MG TABLET PO SCH (22:00)
== END 2023-11-14 11:51 | DRG 641 ==
LOC: JER 19:39 → JERBED 11-11 00:12 → J5S 11-11 01:04
PROVIDERS: ADMIT Internal Medicine; ATTEND Family Medicine
DX: E83.51 Hypocalcemia (principal); N39.0 Urinary tract infection, site not specified; E87.1 Hypo-osmolality and hyponatremia; G25.81 Restless legs syndrome; E03.9 Hypothyroidism, unspecified; K21.9 Gastro-esophageal reflux disease without esophagitis; D50.9 Iron deficiency anemia, unspecified; E87.6 Hypokalemia; K76.0 Fatty (change of) liver, not elsewhere classified; K57.90 Diverticulosis of intestine, part unspecified, without perforation or abscess without bleeding; E78.00 Pure hypercholesterolemia, unspecified; R79.89 Other specified abnormal findings of blood chemistry; H40.9 Unspecified glaucoma; D46.9 Myelodysplastic syndrome, unspecified; E83.42 Hypomagnesemia; B96.1 Klebsiella pneumoniae [K. pneumoniae] as the cause of diseases classified elsewhere; B95.4 Other streptococcus as the cause of diseases classified elsewhere; I25.10 Atherosclerotic heart disease of native coronary artery without angina pectoris; M10.9 Gout, unspecified; I12.9 Hypertensive chronic kidney disease with stage 1 through stage 4 chronic kidney disease, or unspecified chronic kidney disease; N18.9 Chronic kidney disease, unspecified; E11.22 Type 2 diabetes mellitus with diabetic chronic kidney disease; Z85.79 Personal history of other malignant neoplasms of lymphoid, hematopoietic and related tissues; Z96.642 Presence of left artificial hip joint
CPT/HCPCS: 36415; 80053; 81003; 82140; 82330; 82570; 83735; 83930; 83935; 84100; 84300; 85025; 85610; 85730; 86850; 86900; 86901; 87040; 87045; 87046; 87086; 87186; 87635; 93005; 93010; 97116-GP; 97161-GP; 99285-25; J0895

== ENCOUNTER 2023-11-21 14:01 | Observation (INO) | payer OTHER, MEDICARE ==
[2023-11-21 14:37] VITALS: BMI 26.6
[2023-11-21 15:06] LABS: HEMATOCRIT 18.1 % (32.4-45.2); MCH 28.8 pg (25.7-33.7); MCHC 34.7 g/dl (32.0-36.0); MEAN PLT VOLUME 6.8 fl (7.5-11.1); PLATELET COUNT 122 10^3/uL (134-434); RBC 2.18 M/mm3 (3.60-5.2); RDW 16.6 % (11.6-15.6)
[2023-11-21 15:11] LABS: HEMOGLOBIN 6.3 GM/dL (10.7-15.3)
[2023-11-21 15:25] LABS: POTASSIUM 3.6 mmol/L (3.5-5.1)
[2023-11-21 15:27] LABS: ACTIVATED PTT 34.8 SECONDS (25.2-36.5); ANISOCYTOSIS 1+; INR 1.04 (0.83-1.09)
[2023-11-21 15:29] LABS: ALBUMIN 2.3 g/dl (3.4-5.0)
[2023-11-21 15:31] LABS: CREATININE 0.7 mg/dL (0.55-1.3)
[2023-11-21 15:32] LABS: BILIRUBIN,TOTAL 0.4 mg/dL (0.2-1); TOT PROT 5.2 g/dl (6.4-8.2)
[2023-11-21 15:39] LABS: CALCIUM 8.5 mg/dL (8.5-10.1)
[2023-11-21 17:51] VITALS: RESP 18
[2023-11-21] MEDS: MIRTAZAPINE 15 MG TABLET (FP) PO SCH (21:26)
[2023-11-21] MEDS: CALCIUM CARBONATE 650 MG TABLET PO SCH (21:27)
[2023-11-22] MEDS: PORTA CATH FLUSH 10 ML IVPUSH PRN (01:17)
[2023-11-22] MEDS: ACETAMINOPHEN 325 MG TABLET (FP) PO PRN (06:52)
[2023-11-22] MEDS ORDERED: LEVOTHYROXINE NA 150 MCG TABLET PO SCH (07:00)
[2023-11-22 08:05] LABS: HEMATOCRIT 27.5 % (32.4-45.2); HEMOGLOBIN 9.7 GM/dL (10.7-15.3); MCH 29.6 pg (25.7-33.7); MCHC 35.4 g/dl (32.0-36.0); MEAN CELL VOLUME 83.5 fl (80-96); MEAN PLT VOLUME 7.5 fl (7.5-11.1); PLATELET COUNT 126 10^3/uL (134-434); RBC 3.29 M/mm3 (3.60-5.2); WHITE BLOOD COUNT 4.4 K/mm3 (4.0-10.0)
[2023-11-22 08:16] LABS: POTASSIUM 3.9 mmol/L (3.5-5.1)
[2023-11-22 08:21] LABS: ALBUMIN 2.2 g/dl (3.4-5.0); CALCIUM 8.4 mg/dL (8.5-10.1)
[2023-11-22 08:23] LABS: CREATININE 0.7 mg/dL (0.55-1.3)
[2023-11-22 08:26] LABS: BILIRUBIN,TOTAL 1.1 mg/dL (0.2-1); TOT PROT 5.2 g/dl (6.4-8.2)
[2023-11-22] MEDS: PANTOPRAZOLE 40 MG TABLET PO SCH (09:58)
[2023-11-22] MEDS: FOLIC ACID 1 MG TABLET (FP) PO SCH (09:58)
[2023-11-22] MEDS: ALLOPURINOL 100 MG TABLET (FP) PO SCH (09:58)
[2023-11-22] MEDS: TOLTERODINE TARTRATE 2 MG TABLET PO SCH (10:03)
[2023-11-22] MEDS: CALCITRIOL 0.25 MCG CAPSULE (FP) PO SCH (11:05)
[2023-11-22] MEDS: [UNRECOGNIZED DRUG - OTHER] IM SCH (12:53)
[2023-11-22 14:21] VITALS: BP 117/65; PULSE 78; TEMP 97.9
[2023-11-23] MEDS ORDERED: LEVOTHYROXINE NA 100 MCG TABLET (FP) PO SCH (07:00)
== END 2023-11-22 20:00 ==
LOC: JER 14:01 → JERBED 14:45 → J7W 17:20
PROVIDERS: ADMIT Family Medicine; ATTEND Family Medicine
PROC: 30233N1 Transfusion of Nonautologous Red Blood Cells into Peripheral Vein, Percutaneous Approach (ICD-10-PCS; principal; 2023-11-21)
PROC: 3E023GC Introduction of Other Therapeutic Substance into Muscle, Percutaneous Approach (ICD-10-PCS; 2023-11-21)
PROC: 3E033GC Introduction of Other Therapeutic Substance into Peripheral Vein, Percutaneous Approach (ICD-10-PCS; 2023-11-21)
DX: D64.9 Anemia, unspecified (principal); D47.2 Monoclonal gammopathy; C90.00 Multiple myeloma not having achieved remission; D64.89 Other specified anemias; K92.2 Gastrointestinal hemorrhage, unspecified; R16.0 Hepatomegaly, not elsewhere classified; E83.119 Hemochromatosis, unspecified; E83.51 Hypocalcemia; Z91.041 Radiographic dye allergy status; M19.90 Unspecified osteoarthritis, unspecified site; I10 Essential (primary) hypertension; H40.9 Unspecified glaucoma; F41.9 Anxiety disorder, unspecified; Z90.89 Acquired absence of other organs; Z88.8 Allergy status to other drugs, medicaments and biological substances
CPT/HCPCS: 36415; 36430; 71045-TC-FY; 80053; 84443; 85025; 85027; 85610; 85730; 86850; 86900; 86901; 86922; 93005; 93010; 96372; 96374; 99285-25; G0378; J0895; P9058

== ENCOUNTER 2023-12-04 08:12 | Day surgery (SDC) | payer OTHER, MEDICARE ==
[2023-12-04] MEDS: FUROSEMIDE 40 MG TABLET (FP) PO ONE (13:40)
[2023-12-04] MEDS: POTASSIUM CHLORIDE TABS 20 MEQ TABLET.ER (FP) PO ONE (13:40)
[2023-12-04 17:11] VITALS: RESP 18
[2023-12-04 17:23] VITALS: BP 112/51; PULSE 90; TEMP 97.8
[2023-12-04] MEDS: [UNRECOGNIZED DRUG - OTHER] IM ONE (18:25)
[2023-12-04] MEDS: PORTA CATH FLUSH 10 ML IVPUSH PRN (18:30)
[2023-12-04 18:41] LABS: BASO % 0.3 % (0-2.0); HEMATOCRIT 28.4 % (32.4-45.2); HEMOGLOBIN 9.5 GM/dL (10.7-15.3); LYMPH % 32.6 % (8-40); MCH 27.3 pg (25.7-33.7); MCHC 33.4 g/dl (32.0-36.0); MEAN CELL VOLUME 81.8 fl (80-96); MEAN PLT VOLUME 7.4 fl (7.5-11.1); MONO % 7.7 % (3.8-10.2); NEUT % 59.4 % (42.8-82.8); PLATELET COUNT 115 10^3/uL (134-434); RBC 3.47 M/mm3 (3.60-5.2); RDW 17.2 % (11.6-15.6); WHITE BLOOD COUNT 5.9 K/mm3 (4.0-10.0)
== END 2023-12-04 18:50 | disposition home or self-care (01) ==
LOC: JONCBLOOD 08:12 → J7W 08:13 → JONCBLOOD 18:50
PROVIDERS: ATTEND Family Medicine
PROC: 30233N1 Transfusion of Nonautologous Red Blood Cells into Peripheral Vein, Percutaneous Approach (ICD-10-PCS; principal; 2023-12-04)
PROC: 3E013GC Introduction of Other Therapeutic Substance into Subcutaneous Tissue, Percutaneous Approach (ICD-10-PCS; 2023-12-04)
DX: C90.00 Multiple myeloma not having achieved remission (principal); E83.111 Hemochromatosis due to repeated red blood cell transfusions
CPT/HCPCS: 36415; 36430; 85025; 86850; 86900; 86901; 86922; 96372; J0895; P9058

== ENCOUNTER 2023-12-19 09:00 | Day surgery (SDC) | payer OTHER, MEDICARE ==
[2023-12-19 08:41] LABS: CHLORIDE 105 mmol/L (98-107); HEMOGLOBIN 8.3 GM/dL (10.7-15.3); MCHC 34.8 g/dl (32.0-36.0); MEAN CELL VOLUME 80.4 fl (80-96); MEAN PLT VOLUME 7.7 fl (7.5-11.1); PLATELET COUNT 100 10^3/uL (134-434); POTASSIUM 3.5 mmol/L (3.5-5.1); RBC 2.98 M/mm3 (3.60-5.2); RDW 17.6 % (11.6-15.6); SODIUM 137 mmol/L (136-145); WHITE BLOOD COUNT 5.6 K/mm3 (4.0-10.0)
[2023-12-19 08:45] LABS: ALBUMIN 2.8 g/dl (3.4-5.0); ANION GAP 6 mmol/L (4-13); BLOOD UREA NITROGEN 13.9 mg/dL (7-18); CO2 26 mmol/L (21-32); GLUCOSE,RANDOM 91 mg/dL (74-106); MAGNESIUM 1.2 mg/dL (1.8-2.4)
[2023-12-19 08:47] LABS: URIC ACID 4.3 mg/dL (2.6-7.2)
[2023-12-19 08:48] LABS: CREATININE 1.4 mg/dL (0.55-1.3); SGOT/AST 179 U/L (15-37); SGPT/ALT 105 U/L (13-61)
[2023-12-19 08:49] LABS: BILIRUBIN,TOTAL 0.5 mg/dL (0.2-1)
[2023-12-19 08:51] LABS: ALK PHOS 309 U/L (45-117); LDH 240 U/L (84-246)
[~2023-12-19 09:00] MED LIST changes: +TORSEMIDE 20 MG TABLET (FP) PO ONE; -[UNRECOGNIZED DRUG - OTHER] IM ONE
[2023-12-19 09:07] LABS: ANISOCYTOSIS 0; MACROCYTOSIS 0
[2023-12-19] MEDS: TORSEMIDE 20 MG TABLET (FP) PO ONE (12:47)
[2023-12-19] MEDS: CALCIUM GLUC IN NACL, ISO-OSM 1 GM/50 ML BAG IVPB ONE (12:51)
[2023-12-19] MEDS: MAGNESIUM SULFATE IN WATER 2 GM/50 ML IVPB IVPB ONE (17:15)
[2023-12-19] MEDS: [UNRECOGNIZED DRUG - OTHER] IM ONE (18:14)
[2023-12-19 18:22] LABS: HEMATOCRIT 26.8 % (32.4-45.2); HEMOGLOBIN 9.3 GM/dL (10.7-15.3); MCH 27.8 pg (25.7-33.7); MCHC 34.6 g/dl (32.0-36.0); MEAN CELL VOLUME 80.4 fl (80-96); MEAN PLT VOLUME 7.3 fl (7.5-11.1); PLATELET COUNT 91 10^3/uL (134-434); RBC 3.33 M/mm3 (3.60-5.2); RDW 16.8 % (11.6-15.6); WHITE BLOOD COUNT 4.3 K/mm3 (4.0-10.0)
[2023-12-19] MEDS: PORTA CATH FLUSH 10 ML IVPUSH PRN (18:22)
[2023-12-22 07:39] VITALS: BP 115/44; PULSE 62; RESP 18; TEMP 97.8
== END 2023-12-19 18:45 | disposition home or self-care (01) ==
LOC: JONCBLOOD 09:00 → J7W 09:01 → JONCBLOOD 18:45
PROVIDERS: ATTEND Internal Medicine Hematology & Oncology
PROC: 30233N1 Transfusion of Nonautologous Red Blood Cells into Peripheral Vein, Percutaneous Approach (ICD-10-PCS; principal; 2023-12-19)
PROC: 3E033GC Introduction of Other Therapeutic Substance into Peripheral Vein, Percutaneous Approach (ICD-10-PCS; 2023-12-19)
DX: C90.00 Multiple myeloma not having achieved remission (principal)
CPT/HCPCS: 36415; 36430; 80053; 83615; 83735; 84550; 85025; 86850; 86900; 86901; 86922; 96365; 96367; J0895; P9058

== ENCOUNTER 2024-01-02 07:55 | Day surgery (SDC) | payer OTHER, MEDICARE ==
[2024-01-02 08:38] LABS: HEMATOCRIT 21.7 % (32.4-45.2); HEMOGLOBIN 7.3 GM/dL (10.7-15.3); MCH 27.1 pg (25.7-33.7); MCHC 33.9 g/dl (32.0-36.0); MEAN PLT VOLUME 7.9 fl (7.5-11.1); PLATELET COUNT 93 10^3/uL (134-434); RBC 2.71 M/mm3 (3.60-5.2); RDW 16.3 % (11.6-15.6); WHITE BLOOD COUNT 3.7 K/mm3 (4.0-10.0)
[2024-01-02 08:50] LABS: POTASSIUM 3.1 mmol/L (3.5-5.1)
[2024-01-02 08:53] LABS: ALBUMIN 2.8 g/dl (3.4-5.0); BLOOD UREA NITROGEN 27.4 mg/dL (7-18)
[2024-01-02 08:55] LABS: CREATININE 1.4 mg/dL (0.55-1.3); PHOSPHOROUS 4.9 mg/dL (2.5-4.9)
[2024-01-02 08:56] LABS: BILIRUBIN,TOTAL 0.5 mg/dL (0.2-1)
[2024-01-02 09:53] LABS: ANISOCYTOSIS 0; MACROCYTOSIS 0
[2024-01-02 09:56] LABS: PLATELET ESTIMATE DECREASED
[2024-01-02] MEDS: POTASSIUM CHLORIDE TABS 20 MEQ TABLET.ER (FP) PO ONE (11:18)
[2024-01-02] MEDS: TORSEMIDE 20 MG TABLET (FP) PO ONE (13:33)
[2024-01-02] MEDS: [UNRECOGNIZED DRUG - OTHER] IM ONE (17:19)
[2024-01-02 18:45] VITALS: RESP 16
[2024-01-02] MEDS ORDERED: PORTA CATH FLUSH 10 ML IVPUSH PRN (18:47)
[2024-01-02 18:54] VITALS: TEMP 97.5
[2024-01-02 18:55] VITALS: BP 102/51; PULSE 70
== END 2024-01-02 17:30 | disposition home or self-care (01) ==
LOC: JONCBLOOD 07:55 → J7W 07:56 → JONCBLOOD 17:30
PROVIDERS: ATTEND Internal Medicine Hematology & Oncology
PROC: 3E013GC Introduction of Other Therapeutic Substance into Subcutaneous Tissue, Percutaneous Approach (ICD-10-PCS; principal; 2024-01-02)
PROC: 30233N1 Transfusion of Nonautologous Red Blood Cells into Peripheral Vein, Percutaneous Approach (ICD-10-PCS; 2024-01-02)
DX: K55.21 Angiodysplasia of colon with hemorrhage (principal); E83.111 Hemochromatosis due to repeated red blood cell transfusions
CPT/HCPCS: 36415; 36430; 80053; 84100; 85025; 96372; J0895; P9038; P9058

== ENCOUNTER 2024-01-05 11:49 | Day surgery (SDC) | payer OTHER, MEDICARE ==
[2024-01-05] MEDS: [UNRECOGNIZED DRUG - OTHER] IM ONE (12:10)
[2024-01-05 16:43] VITALS: BP 103/47; PULSE 89; RESP 16; TEMP 98.4
== END 2024-01-05 12:30 | disposition home or self-care (01) ==
LOC: JONCNONCHE 11:49 → J7W 11:49 → JONCNONCHE 12:30
PROVIDERS: ATTEND Internal Medicine Hematology & Oncology
PROC: 3E013GC Introduction of Other Therapeutic Substance into Subcutaneous Tissue, Percutaneous Approach (ICD-10-PCS; principal; 2024-01-05)
DX: K55.21 Angiodysplasia of colon with hemorrhage (principal); E83.111 Hemochromatosis due to repeated red blood cell transfusions
CPT/HCPCS: 96372; J0895

== ENCOUNTER 2024-01-06 17:30 | Day surgery (SDC) | payer OTHER, MEDICARE ==
[2024-01-06] MEDS: [UNRECOGNIZED DRUG - OTHER] IM ONE (17:41)
[2024-01-06 18:01] VITALS: PULSE 100; TEMP 98.5
[2024-01-06 18:03] VITALS: BP 114/49; RESP 18
== END 2024-01-06 18:05 | disposition home or self-care (01) ==
LOC: JONCNONCHE 17:30
PROVIDERS: ATTEND Internal Medicine Hematology & Oncology
PROC: 3E013GC Introduction of Other Therapeutic Substance into Subcutaneous Tissue, Percutaneous Approach (ICD-10-PCS; principal; 2024-01-06)
DX: K55.21 Angiodysplasia of colon with hemorrhage (principal); E83.111 Hemochromatosis due to repeated red blood cell transfusions
CPT/HCPCS: 96372; J0895

== ENCOUNTER 2024-01-07 15:22 | Day surgery (SDC) | payer OTHER, MEDICARE ==
[2024-01-07] MEDS: [UNRECOGNIZED DRUG - OTHER] IM ONE (15:29)
[2024-01-07 15:41] VITALS: BP 103/40; PULSE 93; RESP 2; TEMP 98.1
== END 2024-01-07 15:59 | disposition home or self-care (01) ==
LOC: JONCNONCHE 15:22
PROVIDERS: ATTEND Internal Medicine Hematology & Oncology
PROC: 3E023GC Introduction of Other Therapeutic Substance into Muscle, Percutaneous Approach (ICD-10-PCS; principal; 2024-01-07)
DX: E83.111 Hemochromatosis due to repeated red blood cell transfusions (principal); K55.21 Angiodysplasia of colon with hemorrhage; C90.00 Multiple myeloma not having achieved remission
CPT/HCPCS: 96372; J0895

== ENCOUNTER 2024-01-08 17:35 | Day surgery (SDC) | payer OTHER, MEDICARE ==
[2024-01-08] MEDS: [UNRECOGNIZED DRUG - OTHER] IM ONE (17:48)
[2024-01-08 18:00] VITALS: BP 94/40; PULSE 103; RESP 20; TEMP 98.9
== END 2024-01-08 18:04 | disposition home or self-care (01) ==
LOC: JONCNONCHE 17:35 → J7W 17:35 → JONCNONCHE 18:04
PROVIDERS: ATTEND Internal Medicine Hematology & Oncology
PROC: 3E013GC Introduction of Other Therapeutic Substance into Subcutaneous Tissue, Percutaneous Approach (ICD-10-PCS; principal; 2024-01-08)
DX: E83.111 Hemochromatosis due to repeated red blood cell transfusions (principal); K55.21 Angiodysplasia of colon with hemorrhage; C90.00 Multiple myeloma not having achieved remission
CPT/HCPCS: 96372; J0895

== ENCOUNTER 2024-01-09 15:17 | Day surgery (SDC) | payer OTHER, MEDICARE ==
[~2024-01-09 15:17] MED LIST changes: -TORSEMIDE 20 MG TABLET (FP) PO ONE; +[UNRECOGNIZED DRUG - OTHER] IM ONE
[2024-01-09] MEDS: [UNRECOGNIZED DRUG - OTHER] IM ONE (15:19)
[2024-01-09 16:29] VITALS: BP 106/50; PULSE 103; RESP 20; TEMP 98.1
== END 2024-01-09 15:30 | disposition home or self-care (01) ==
LOC: JONCCHEMO 15:17 → J7W 15:18 → JONCCHEMO 15:30
PROVIDERS: ATTEND Internal Medicine Hematology & Oncology
PROC: 3E013GC Introduction of Other Therapeutic Substance into Subcutaneous Tissue, Percutaneous Approach (ICD-10-PCS; principal; 2024-01-09)
DX: E83.111 Hemochromatosis due to repeated red blood cell transfusions (principal); K55.21 Angiodysplasia of colon with hemorrhage; C90.00 Multiple myeloma not having achieved remission
CPT/HCPCS: 96372; J0895

== ENCOUNTER 2024-01-12 11:05 | Day surgery (SDC) | payer OTHER, MEDICARE ==
[2024-01-12] MEDS: [UNRECOGNIZED DRUG - OTHER] IM ONE (11:37)
[2024-01-12 16:37] VITALS: BP 110/49; PULSE 93; RESP 20; TEMP 98.3
== END 2024-01-12 12:00 | disposition home or self-care (01) ==
LOC: JONCNONCHE 11:05 → J7W 11:06 → JONCNONCHE 12:00
PROVIDERS: ATTEND Internal Medicine Hematology & Oncology
PROC: 3E013GC Introduction of Other Therapeutic Substance into Subcutaneous Tissue, Percutaneous Approach (ICD-10-PCS; principal; 2024-01-12)
DX: E83.111 Hemochromatosis due to repeated red blood cell transfusions (principal)
CPT/HCPCS: 96372; J0895

== ENCOUNTER 2024-01-13 14:43 | Day surgery (SDC) | payer OTHER, MEDICARE ==
[2024-01-13] MEDS: [UNRECOGNIZED DRUG - OTHER] IM ONE (14:48)
[2024-01-13 15:25] VITALS: BP 109/49; PULSE 96; RESP 20; TEMP 97.8
== END 2024-01-13 15:10 | disposition home or self-care (01) ==
LOC: JONCCHEMO 14:43 → J7W 14:44 → JONCCHEMO 15:10
PROVIDERS: ATTEND Internal Medicine Hematology & Oncology
PROC: 3E013GC Introduction of Other Therapeutic Substance into Subcutaneous Tissue, Percutaneous Approach (ICD-10-PCS; principal; 2024-01-13)
DX: E83.111 Hemochromatosis due to repeated red blood cell transfusions (principal)
CPT/HCPCS: 96372; J0895

== ENCOUNTER 2024-01-15 17:30 | Day surgery (SDC) | payer OTHER, MEDICARE ==
[2024-01-15] MEDS: [UNRECOGNIZED DRUG - OTHER] IM ONE (17:39)
[2024-01-15 17:43] VITALS: BP 91/47; PULSE 93; RESP 16; TEMP 98.3
== END 2024-01-15 17:48 | disposition home or self-care (01) ==
LOC: JONCNONCHE 17:30 → J7W 17:30 → JONCNONCHE 17:37
PROVIDERS: ATTEND Internal Medicine Hematology & Oncology
PROC: 3E013GC Introduction of Other Therapeutic Substance into Subcutaneous Tissue, Percutaneous Approach (ICD-10-PCS; principal; 2024-01-15)
DX: K55.21 Angiodysplasia of colon with hemorrhage (principal); E83.111 Hemochromatosis due to repeated red blood cell transfusions
CPT/HCPCS: 96372; J0895

== ENCOUNTER 2024-01-16 15:15 | Day surgery (SDC) | payer OTHER, MEDICARE ==
[2024-01-16] MEDS: [UNRECOGNIZED DRUG - OTHER] IM ONE (15:21)
[2024-01-16 17:11] VITALS: BP 107/52; PULSE 83; RESP 18; TEMP 97.7
== END 2024-01-16 15:30 | disposition home or self-care (01) ==
LOC: JONCCHEMO 15:15 → J7W 15:15 → JONCCHEMO 15:30
PROVIDERS: ATTEND Internal Medicine Hematology & Oncology
PROC: 3E013GC Introduction of Other Therapeutic Substance into Subcutaneous Tissue, Percutaneous Approach (ICD-10-PCS; principal; 2024-01-16)
DX: E83.111 Hemochromatosis due to repeated red blood cell transfusions (principal)
CPT/HCPCS: 96372; J0895

== ENCOUNTER 2024-01-19 14:11 | Day surgery (SDC) | payer OTHER, MEDICARE ==
[2024-01-19] MEDS: [UNRECOGNIZED DRUG - OTHER] IM ONE (15:18)
[2024-01-19 15:47] VITALS: BP 114/57; PULSE 90; RESP 20; TEMP 98
== END 2024-01-19 15:30 | disposition home or self-care (01) ==
LOC: JONCNONCHE 14:11 → J7W 14:11 → JONCNONCHE 15:30
PROVIDERS: ATTEND Internal Medicine Hematology & Oncology
PROC: 3E013GC Introduction of Other Therapeutic Substance into Subcutaneous Tissue, Percutaneous Approach (ICD-10-PCS; principal; 2024-01-19)
DX: E83.111 Hemochromatosis due to repeated red blood cell transfusions (principal); K55.21 Angiodysplasia of colon with hemorrhage
CPT/HCPCS: 96372; J0895

== ENCOUNTER 2024-01-20 16:45 | Day surgery (SDC) | payer OTHER, MEDICARE ==
[2024-01-20] MEDS: [UNRECOGNIZED DRUG - OTHER] IM ONE (17:31)
[2024-01-20 17:48] VITALS: BP 129/50; PULSE 106; RESP 16; TEMP 97.9
== END 2024-01-20 17:40 | disposition home or self-care (01) ==
LOC: JONCCHEMO 16:45 → J7W 16:45 → JONCCHEMO 17:40
PROVIDERS: ATTEND Internal Medicine Hematology & Oncology
PROC: 3E013GC Introduction of Other Therapeutic Substance into Subcutaneous Tissue, Percutaneous Approach (ICD-10-PCS; principal; 2024-01-20)
DX: E83.111 Hemochromatosis due to repeated red blood cell transfusions (principal); K55.21 Angiodysplasia of colon with hemorrhage
CPT/HCPCS: 96372; J0895

== ENCOUNTER 2024-01-21 17:30 | Day surgery (SDC) | payer MEDICARE, OTHER ==
[2024-01-21] MEDS: [UNRECOGNIZED DRUG - OTHER] IM ONE (17:37)
[2024-01-21 17:48] VITALS: BP 125/55; PULSE 107; RESP 20; TEMP 98.1
== END 2024-01-21 17:51 | disposition home or self-care (01) ==
LOC: JONCNONCHE 17:30 → J7W 17:30 → JONCNONCHE 17:51
PROVIDERS: ATTEND Internal Medicine Hematology & Oncology
PROC: 3E013GC Introduction of Other Therapeutic Substance into Subcutaneous Tissue, Percutaneous Approach (ICD-10-PCS; principal; 2024-01-21)
DX: E83.111 Hemochromatosis due to repeated red blood cell transfusions (principal); K55.21 Angiodysplasia of colon with hemorrhage
CPT/HCPCS: J0895

== ENCOUNTER 2024-01-22 13:53 | Inpatient (IN) | payer OTHER, MEDICARE ==
[2024-01-22 14:39] VITALS: BMI 26.3
[2024-01-22] MEDS ORDERED: ACETAMINOPHEN INJECTION 100 ML IVPB ONE (14:45)
[2024-01-22 15:07] LABS: HEMATOCRIT 21.3 % (32.4-45.2); HEMOGLOBIN 7.3 GM/dL (10.7-15.3); MCH 28.2 pg (25.7-33.7); MCHC 34.2 g/dl (32.0-36.0); MEAN CELL VOLUME 82.6 fl (80-96); MEAN PLT VOLUME 7.2 fl (7.5-11.1); PLATELET COUNT 59 10^3/uL (134-434); RBC 2.58 M/mm3 (3.60-5.2); RDW 17.5 % (11.6-15.6); WHITE BLOOD COUNT 3.2 K/mm3 (4.0-10.0)
[2024-01-22 15:28] LABS: ANISOCYTOSIS 0; MACROCYTOSIS 0
[2024-01-22 15:39] LABS: BLOOD UREA NITROGEN 23.8 mg/dL (7-18); GLUCOSE,RANDOM 101 mg/dL (74-106)
[2024-01-22 15:40] LABS: CHLORIDE 106 mmol/L (98-107); CO2 23 mmol/L (21-32); CREATININE 1.4 mg/dL (0.55-1.3); POTASSIUM 3.9 mmol/L (3.5-5.1); SODIUM 139 mmol/L (136-145)
[2024-01-22 15:41] LABS: CALCIUM 6.8 mg/dL (8.5-10.1); MAGNESIUM 1.4 mg/dL (1.8-2.4); PHOSPHOROUS 3.9 mg/dL (2.5-4.9); TOT PROT 5.6 g/dl (6.4-8.2)
[2024-01-22 15:42] LABS: ALBUMIN 2.5 g/dl (3.4-5.0); ALK PHOS 694 U/L (45-117); BILIRUBIN,DIRECT 0.9 mg/dL (0.0-0.2); BILIRUBIN,TOTAL 1.2 mg/dL (0.2-1); SGOT/AST 262 U/L (15-37); SGPT/ALT 127 U/L (13-61)
[2024-01-22 15:43] LABS: LDH 302 U/L (84-246)
[2024-01-22] MEDS: SODIUM CHLORIDE 0.9% 500 ML INFUS.BAG IV ONE (15:45)
[2024-01-22] MEDS: ACETAMINOPHEN 1000 MG/100 ML BAG IVPB ONE (15:45)
[2024-01-22] MEDS ORDERED: CALCIUM GLUC IN NACL, ISO-OSM 1 GM/50 ML BAG IVPB ONE (15:56)
[2024-01-22] MEDS ORDERED: ONDANSETRON *ODT* 4 MG TABLET ONE (15:56)
[2024-01-22] MEDS: ONDANSETRON *ODT* 4 MG TABLET SL ONE (16:04)
[2024-01-22] MEDS: CALCIUM GLUC IN NACL, ISO-OSM 1 GM/50 ML BAG IVPB ONE (16:20)
[2024-01-22 16:26] LABS: EPI CELLS 10 /uL (0-25.1); HYALINE CASTS 1 /uL (0-3.1); PH,URINE 5.5 (5.0-8.0); URINE APPEARANCE CLEAR; URINE BACTERIA >9,000 /uL (0-1359); URINE BILIRUBIN NEGATIVE (NEGATIVE); URINE COLOR DK YELLOW; URINE GLUCOSE (UA) NEGATIVE (NEGATIVE); URINE KETONE NEGATIVE (NEGATIVE); URINE LEUK ESTERASE 1+ (NEGATIVE); URINE NITRITE POSITIVE (NEGATIVE); URINE PROTEIN NEGATIVE (NEGATIVE); URINE RBC 22 /uL (0-23.9); URINE WBC 155 /uL (0-25.8)
[2024-01-22] MEDS ORDERED: MAGNESIUM SULFATE IN WATER 2 GM/50 ML IVPB IVPB ONE (16:34)
[2024-01-22] MEDS: MAGNESIUM SULF 50% (8.12 MEQ/2 ML-1 GM VIAL) IVPB ONE (16:57)
[2024-01-22 16:58] LABS: LACTIC ACID 4.3 mmol/L (0.4-2.0)
[2024-01-22] MEDS: D5-1/2NS+20 MEQ KCL - 20 MEQ/1,000 ML INFUS.BAG IV SCH (18:15)
[2024-01-22] MEDS ORDERED: CALCIUM GLUCONATE 10% - 1,000 MG/10 ML VIAL ONE (18:32)
[2024-01-22] MEDS: CALCIUM GLUCONATE 10% - 1,000 MG/10 ML VIAL IVPB ONE (19:35)
[2024-01-22] MEDS: SODIUM CHLORIDE 0.9% 1000 ML INFUS.BAG IV ONE (19:35)
[2024-01-22] MEDS ORDERED: SODIUM CHLORIDE 250 ML IV STA (19:40)
[2024-01-22 22:15] LABS: LACTIC ACID 2.3 mmol/L (0.4-2.0)
[2024-01-22] MEDS: CALCIUM CARBONATE 650 MG TABLET PO SCH (22:16)
[2024-01-22] MEDS: CALCITRIOL 0.25 MCG CAPSULE (FP) PO SCH (22:16)
[2024-01-23] MEDS: SODIUM CHLORIDE 250 ML IV STA (06:20)
[2024-01-23] MEDS: LEVOTHYROXINE 100 MCG, LEVOTHYROXINE 75 MCG PO SCH (06:22)
[2024-01-23] MEDS ORDERED: LEVOTHYROXINE NA 75 MCG TABLET (FP) PO SCH (07:00)
[2024-01-23 09:56] LABS: BASO % 0.2 % (0-2.0); HEMATOCRIT 18.8 % (32.4-45.2); LYMPH % 12.5 % (8-40); MCH 28.4 pg (25.7-33.7); MCHC 34.3 g/dl (32.0-36.0); MEAN CELL VOLUME 82.9 fl (80-96); MEAN PLT VOLUME 7.8 fl (7.5-11.1); MONO % 3.8 % (3.8-10.2); NEUT % 83.5 % (42.8-82.8); PLATELET COUNT 68 10^3/uL (134-434); RBC 2.27 M/mm3 (3.60-5.2); RDW 17.3 % (11.6-15.6); WHITE BLOOD COUNT 4.6 K/mm3 (4.0-10.0)
[2024-01-23 10:01] LABS: HEMOGLOBIN 6.4 GM/dL (10.7-15.3)
[2024-01-23] MEDS: ACETAMINOPHEN 325 MG TABLET (FP) PO PRN (10:10)
[2024-01-23] MEDS: FOLIC ACID 1 MG TABLET (FP) PO SCH (10:10)
[2024-01-23] MEDS: ENOXAPARIN NA (PORCINE) 40 MG/0.4 ML DISP.SYRIN SQ SCH (10:11)
[2024-01-23 10:15] LABS: POTASSIUM 3.7 mmol/L (3.5-5.1)
[2024-01-23 10:21] LABS: ALBUMIN 2.3 g/dl (3.4-5.0); BLOOD UREA NITROGEN 20.8 mg/dL (7-18); CALCIUM 7.1 mg/dL (8.5-10.1)
[2024-01-23 10:24] LABS: CREATININE 1.4 mg/dL (0.55-1.3)
[2024-01-23 10:26] LABS: BILIRUBIN,TOTAL 0.7 mg/dL (0.2-1); TOT PROT 5.5 g/dl (6.4-8.2)
[2024-01-23 10:30] LABS: LACTIC ACID 2.3 mmol/L (0.4-2.0)
[2024-01-23 13:43] LABS: LACTIC ACID 2.8 mmol/L (0.4-2.0)
[2024-01-23] MEDS ORDERED: CALCIUM GLUCONATE IN NACL 1 GM/50 ML BAG IVPB ONE (14:00)
[2024-01-23] MEDS ORDERED: CEFEPIME HCL 1 GM VIAL (RESTRICTED TO ID) IVPB SCH (14:15)
[2024-01-23] MEDS: CALCIUM GLUCONATE IN NACL 1 GM/50 ML BAG IVPB ONE (15:32)
[2024-01-23] MEDS: CALCIUM GLUC IN NACL, ISO-OSM 1 GM/50 ML BAG IVPB ONE (15:52)
[2024-01-23] MEDS: CEFEPIME 1 GM in DEXTROSE 5%-WATER - 50 ML IVPB SCH (16:03)
[2024-01-24] MEDS: LEVOTHYROXINE NA 100 MCG TABLET (FP) PO SCH (06:08)
[2024-01-24 09:00] LABS: BASO % 0.2 % (0-2.0); EOS % 0.1 % (0-4.5); HEMATOCRIT 23.6 % (32.4-45.2); HEMOGLOBIN 8.1 GM/dL (10.7-15.3); LYMPH % 13.2 % (8-40); MCH 28.8 pg (25.7-33.7); MCHC 34.5 g/dl (32.0-36.0); MEAN CELL VOLUME 83.5 fl (80-96); MONO % 4.4 % (3.8-10.2); NEUT % 82.1 % (42.8-82.8); PLATELET COUNT 66 10^3/uL (134-434); RBC 2.82 M/mm3 (3.60-5.2); RDW 17.1 % (11.6-15.6); WHITE BLOOD COUNT 3.1 K/mm3 (4.0-10.0)
[2024-01-24 09:05] LABS: POTASSIUM 3.4 mmol/L (3.5-5.1)
[2024-01-24 09:06] LABS: CALCIUM 7.4 mg/dL (8.5-10.1)
[2024-01-24 09:07] LABS: ALBUMIN 2.1 g/dl (3.4-5.0); BLOOD UREA NITROGEN 19.3 mg/dL (7-18)
[2024-01-24 09:10] LABS: CREATININE 1.1 mg/dL (0.55-1.3)
[2024-01-24 09:12] LABS: BILIRUBIN,TOTAL 0.8 mg/dL (0.2-1)
[2024-01-24] MEDS: POTASSIUM CHLORIDE ORAL LIQUID 20 MEQ/15 ML PO ONE (16:08)
[2024-01-25] MEDS ORDERED: CEFEPIME HCL 1 GM VIAL (RESTRICTED TO ID) ONE (02:22)
[2024-01-25 09:21] LABS: BASO % 0.3 % (0-2.0); EOS % 0.1 % (0-4.5); LYMPH % 25.9 % (8-40); MCH 29.1 pg (25.7-33.7); MCHC 34.8 g/dl (32.0-36.0); MEAN CELL VOLUME 83.5 fl (80-96); MONO % 3.2 % (3.8-10.2); NEUT % 70.5 % (42.8-82.8); PLATELET COUNT 64 10^3/uL (134-434); RBC 2.76 M/mm3 (3.60-5.2); RDW 17.5 % (11.6-15.6); WHITE BLOOD COUNT 2.5 K/mm3 (4.0-10.0)
[2024-01-25 09:44] LABS: POTASSIUM 4.1 mmol/L (3.5-5.1)
[2024-01-25 09:58] LABS: ALBUMIN 2.3 g/dl (3.4-5.0); CALCIUM 7.7 mg/dL (8.5-10.1)
[2024-01-25 09:59] LABS: BLOOD UREA NITROGEN 13.8 mg/dL (7-18)
[2024-01-25 10:01] LABS: CREATININE 0.9 mg/dL (0.55-1.3)
[2024-01-25 10:03] LABS: BILIRUBIN,TOTAL 0.5 mg/dL (0.2-1)
[2024-01-25 10:05] LABS: TOT PROT 5.4 g/dl (6.4-8.2)
[2024-01-26 10:17] LABS: HEMATOCRIT 20.5 % (32.4-45.2); MCH 28.7 pg (25.7-33.7); MEAN CELL VOLUME 84.3 fl (80-96); MEAN PLT VOLUME 7.8 fl (7.5-11.1); PLATELET COUNT 49 10^3/uL (134-434); RBC 2.43 M/mm3 (3.60-5.2); RDW 17.4 % (11.6-15.6); WHITE BLOOD COUNT 2.1 K/mm3 (4.0-10.0)
[2024-01-26 10:21] LABS: POTASSIUM 3.8 mmol/L (3.5-5.1)
[2024-01-26 10:26] LABS: CALCIUM 8.1 mg/dL (8.5-10.1)
[2024-01-26 10:27] LABS: BLOOD UREA NITROGEN 12.4 mg/dL (7-18)
[2024-01-26 10:30] LABS: CREATININE 0.7 mg/dL (0.55-1.3)
[2024-01-26 10:31] LABS: BILIRUBIN,TOTAL 0.5 mg/dL (0.2-1); TOT PROT 4.7 g/dl (6.4-8.2)
[2024-01-26 12:41] LABS: ANISOCYTOSIS 0; HELMET CELLS 0; HOWELL-JOLLY BODIES 0; MACROCYTOSIS 0; OVALOCYTE 0; ROULEAU 0; SICKELED CELLS 0; TARGET CELLS 0; TEAR DROP CELLS 0; TOXIC GRANULATION 0
[2024-01-26] MEDS: MEROPENEM 1 GM in DEXTROSE 5%-WATER 100 ML IVPB SCH (19:08)
[2024-01-27 09:56] LABS: HEMATOCRIT 21.5 % (32.4-45.2); HEMOGLOBIN 7.4 GM/dL (10.7-15.3); MCH 28.6 pg (25.7-33.7); MCHC 34.3 g/dl (32.0-36.0); MEAN CELL VOLUME 83.3 fl (80-96); MEAN PLT VOLUME 7.6 fl (7.5-11.1); PLATELET COUNT 48 10^3/uL (134-434); RBC 2.58 M/mm3 (3.60-5.2); RDW 17.6 % (11.6-15.6); WHITE BLOOD COUNT 2.6 K/mm3 (4.0-10.0)
[2024-01-27 10:11] LABS: POTASSIUM 3.8 mmol/L (3.5-5.1)
[2024-01-27 10:18] LABS: CALCIUM 8.7 mg/dL (8.5-10.1)
[2024-01-27 10:19] LABS: ALBUMIN 2.2 g/dl (3.4-5.0)
[2024-01-27 10:22] LABS: CREATININE 0.9 mg/dL (0.55-1.3)
[2024-01-27 10:24] LABS: BILIRUBIN,TOTAL 0.5 mg/dL (0.2-1); TOT PROT 5.4 g/dl (6.4-8.2)
[2024-01-27 12:08] LABS: ANISOCYTOSIS 0; MACROCYTOSIS 0
[2024-01-27 12:11] LABS: PLATELET ESTIMATE DECREASED
[2024-01-28 06:57] LABS: WHITE BLOOD COUNT 2.9 K/mm3 (4.0-10.0)
[2024-01-28 06:58] LABS: HEMATOCRIT 18.7 % (32.4-45.2); MCH 28.5 pg (25.7-33.7); MEAN CELL VOLUME 83.9 fl (80-96); MEAN PLT VOLUME 7.8 fl (7.5-11.1); PLATELET COUNT 47 10^3/uL (134-434); RBC 2.23 M/mm3 (3.60-5.2); RDW 17.3 % (11.6-15.6)
[2024-01-28 07:17] LABS: POTASSIUM 3.8 mmol/L (3.5-5.1)
[2024-01-28 07:19] LABS: CALCIUM 8.7 mg/dL (8.5-10.1)
[2024-01-28 07:22] LABS: CREATININE 0.6 mg/dL (0.55-1.3)
[2024-01-28 07:24] LABS: BILIRUBIN,TOTAL 0.4 mg/dL (0.2-1); HEMOGLOBIN 6.4 GM/dL (10.7-15.3); TOT PROT 4.6 g/dl (6.4-8.2)
[2024-01-28 09:57] LABS: ANISOCYTOSIS 0; MACROCYTOSIS 0; ROULEAU 1+
[2024-01-29 12:17] LABS: HEMATOCRIT 27.3 % (32.4-45.2); HEMOGLOBIN 9.5 GM/dL (10.7-15.3); MCH 29.2 pg (25.7-33.7); MCHC 34.9 g/dl (32.0-36.0); MEAN CELL VOLUME 83.7 fl (80-96); MEAN PLT VOLUME 8.9 fl (7.5-11.1); PLATELET COUNT 63 10^3/uL (134-434); RBC 3.26 M/mm3 (3.60-5.2); RDW 16.4 % (11.6-15.6); WHITE BLOOD COUNT 4.5 K/mm3 (4.0-10.0)
[2024-01-29 12:39] LABS: POTASSIUM 4.8 mmol/L (3.5-5.1)
[2024-01-29 12:43] LABS: ALBUMIN 2.2 g/dl (3.4-5.0); BLOOD UREA NITROGEN 10.8 mg/dL (7-18); CALCIUM 9.4 mg/dL (8.5-10.1)
[2024-01-29 12:46] LABS: CREATININE 0.7 mg/dL (0.55-1.3)
[2024-01-29 12:48] LABS: BILIRUBIN,TOTAL 0.6 mg/dL (0.2-1); TOT PROT 5.6 g/dl (6.4-8.2)
[2024-01-29 13:00] LABS: ANISOCYTOSIS 0; MACROCYTOSIS 0; OVALOCYTE 0
[2024-01-29] MEDS: ALPRAZolam 0.25 MG TABLET PO PRN (16:09)
[2024-01-30] MEDS: ERTAPENEM SODIUM 1 GM in SODIUM CHLORIDE 50 ML IVPB SCH (13:25)
[2024-01-31 10:16] LABS: HEMATOCRIT 26.5 % (32.4-45.2); HEMOGLOBIN 9.1 GM/dL (10.7-15.3); MCH 29.2 pg (25.7-33.7); MCHC 34.3 g/dl (32.0-36.0); MEAN CELL VOLUME 85.3 fl (80-96); PLATELET COUNT 63 10^3/uL (134-434); RBC 3.11 M/mm3 (3.60-5.2); WHITE BLOOD COUNT 3.7 K/mm3 (4.0-10.0)
[2024-01-31 10:30] LABS: POTASSIUM 4.2 mmol/L (3.5-5.1)
[2024-01-31 10:32] LABS: ALBUMIN 2.1 g/dl (3.4-5.0); CALCIUM 9.4 mg/dL (8.5-10.1)
[2024-01-31 10:35] LABS: CREATININE 0.7 mg/dL (0.55-1.3)
[2024-01-31 10:37] LABS: BILIRUBIN,TOTAL 0.4 mg/dL (0.2-1); TOT PROT 5.1 g/dl (6.4-8.2)
[2024-01-31 11:08] LABS: ANISOCYTOSIS 0; MACROCYTOSIS 0
[2024-02-01 09:05] LABS: HEMATOCRIT 29.3 % (32.4-45.2); HEMOGLOBIN 10.1 GM/dL (10.7-15.3); MCH 29.1 pg (25.7-33.7); MCHC 34.3 g/dl (32.0-36.0); MEAN CELL VOLUME 84.6 fl (80-96); PLATELET COUNT 69 10^3/uL (134-434); RBC 3.47 M/mm3 (3.60-5.2); RDW 16.3 % (11.6-15.6); WHITE BLOOD COUNT 3.8 K/mm3 (4.0-10.0)
[2024-02-01 09:31] LABS: POTASSIUM 4.1 mmol/L (3.5-5.1)
[2024-02-01 09:36] LABS: ALBUMIN 2.3 g/dl (3.4-5.0); BLOOD UREA NITROGEN 11.2 mg/dL (7-18); CALCIUM 10.6 mg/dL (8.5-10.1)
[2024-02-01 09:39] LABS: CREATININE 0.8 mg/dL (0.55-1.3)
[2024-02-01 09:41] LABS: BILIRUBIN,TOTAL 0.5 mg/dL (0.2-1); TOT PROT 5.5 g/dl (6.4-8.2)
[2024-02-01 14:23] VITALS: BP 123/59; PULSE 90; RESP 18; TEMP 98.4
== END 2024-02-01 16:40 | disposition home or self-care (01) | DRG 809 ==
LOC: JER 13:53 → JERBED 16:02 → J6S 01-23 00:13 → J7W 01-27 10:42
PROVIDERS: ADMIT Internal Medicine; ATTEND Internal Medicine
PROC: 30233N1 Transfusion of Nonautologous Red Blood Cells into Peripheral Vein, Percutaneous Approach (ICD-10-PCS; principal; 2024-01-23)
DX: D61.818 Other pancytopenia (principal); C90.00 Multiple myeloma not having achieved remission; N39.0 Urinary tract infection, site not specified; E87.20 Acidosis, unspecified; B96.1 Klebsiella pneumoniae [K. pneumoniae] as the cause of diseases classified elsewhere; B95.4 Other streptococcus as the cause of diseases classified elsewhere; R79.89 Other specified abnormal findings of blood chemistry; I25.10 Atherosclerotic heart disease of native coronary artery without angina pectoris; E03.9 Hypothyroidism, unspecified; G25.81 Restless legs syndrome; H40.9 Unspecified glaucoma; K57.90 Diverticulosis of intestine, part unspecified, without perforation or abscess without bleeding; R50.9 Fever, unspecified; E83.51 Hypocalcemia; I12.9 Hypertensive chronic kidney disease with stage 1 through stage 4 chronic kidney disease, or unspecified chronic kidney disease; E11.22 Type 2 diabetes mellitus with diabetic chronic kidney disease; N18.9 Chronic kidney disease, unspecified; D46.9 Myelodysplastic syndrome, unspecified; E83.19 Other disorders of iron metabolism; D47.2 Monoclonal gammopathy; Z88.0 Allergy status to penicillin
CPT/HCPCS: 0241U-QW; 36415; 36430; 71045-TC-FY; 76705-TC; 80053; 81003; 82248; 82962; 83010; 83605; 83615; 83735; 84100; 84443; 85025; 85027; 86078; 86850; 86900; 86901; 86922; 87040; 87086; 87186; 93005; 93010; 96372; 99285-25; J0131; J0895; P9038; P9058

== ENCOUNTER 2024-02-02 10:47 | Day surgery (SDC) | payer OTHER, MEDICARE ==
[2024-02-02] MEDS: ERTAPENEM SODIUM 1 GM in SODIUM CHLORIDE 50 ML IVPB ONE (12:18)
[2024-02-02] MEDS: PORTA CATH FLUSH 10 ML IVPUSH PRN (13:00)
[2024-02-02 13:16] VITALS: TEMP 98.1
[2024-02-02 13:18] VITALS: BP 96/60; PULSE 94; RESP 18
== END 2024-02-02 13:30 | disposition home or self-care (01) ==
LOC: JINFUSION 10:47 → J7W 10:48 → JINFUSION 13:30
PROVIDERS: ATTEND Internal Medicine
DX: N39.0 Urinary tract infection, site not specified (principal); B96.1 Klebsiella pneumoniae [K. pneumoniae] as the cause of diseases classified elsewhere
CPT/HCPCS: 96365

== ENCOUNTER 2024-02-03 12:17 | Day surgery (SDC) | payer OTHER, MEDICARE ==
[~2024-02-03 12:17] MED LIST changes: +ERTAPENEM SODIUM 1 GM in SODIUM CHLORIDE 50 ML IVPB ONE; -[UNRECOGNIZED DRUG - OTHER] IM ONE
[2024-02-03] MEDS: ERTAPENEM SODIUM 1 GM in SODIUM CHLORIDE 50 ML IVPB ONE (12:45)
[2024-02-03] MEDS: PORTA CATH FLUSH 10 ML IVPUSH PRN (13:20)
[2024-02-03 15:21] VITALS: BP 98/49; PULSE 101; RESP 20; TEMP 98.5
== END 2024-02-03 13:25 | disposition home or self-care (01) ==
LOC: JINFUSION 12:17 → J7W 12:20 → JINFUSION 13:25
PROVIDERS: ATTEND Internal Medicine
DX: N39.0 Urinary tract infection, site not specified (principal); B96.1 Klebsiella pneumoniae [K. pneumoniae] as the cause of diseases classified elsewhere
CPT/HCPCS: 96365

== ENCOUNTER 2024-02-04 10:38 | Day surgery (SDC) | payer OTHER, MEDICARE ==
[2024-02-04] MEDS: ERTAPENEM SODIUM 1 GM in SODIUM CHLORIDE 50 ML IVPB ONE (11:22)
[2024-02-04] MEDS: PORTA CATH FLUSH 10 ML IVPUSH PRN (12:00)
[2024-02-04 14:05] VITALS: BP 92/46; PULSE 77; RESP 18; TEMP 97.5
[2024-02-04] MEDS ORDERED: PORTA CATH FLUSH 10 ML IVPUSH PRN (14:06)
== END 2024-02-04 12:15 | disposition home or self-care (01) ==
LOC: JINFUSION 10:38 → J7W 10:39 → JINFUSION 12:15
PROVIDERS: ATTEND Internal Medicine
DX: N39.0 Urinary tract infection, site not specified (principal); B96.1 Klebsiella pneumoniae [K. pneumoniae] as the cause of diseases classified elsewhere
CPT/HCPCS: 96365

== ENCOUNTER 2024-02-05 11:10 | Day surgery (SDC) | payer OTHER, MEDICARE ==
[2024-02-05] MEDS: ERTAPENEM SODIUM 1 GM in SODIUM CHLORIDE 50 ML IVPB ONE (12:00)
[2024-02-05] MEDS: PORTA CATH FLUSH 10 ML IVPUSH PRN (12:40)
[2024-02-05 14:17] VITALS: RESP 20; TEMP 98
[2024-02-05 14:19] VITALS: BP 102/58; PULSE 86
== END 2024-02-05 13:15 | disposition home or self-care (01) ==
LOC: JINFUSION 11:10 → J7W 11:11 → JINFUSION 13:15
PROVIDERS: ATTEND Internal Medicine
DX: N39.0 Urinary tract infection, site not specified (principal); B96.1 Klebsiella pneumoniae [K. pneumoniae] as the cause of diseases classified elsewhere
CPT/HCPCS: 96365

== ENCOUNTER 2024-02-10 10:14 | Day surgery (SDC) | payer OTHER, MEDICARE ==
[2024-02-10] MEDS: [UNRECOGNIZED DRUG - OTHER] IM ONE (11:12)
[2024-02-10 17:57] VITALS: BP 97/50; PULSE 104; RESP 20; TEMP 98.3
== END 2024-02-10 10:45 | disposition home or self-care (01) ==
LOC: JONCNONCHE 10:14 → J7W 10:14 → JONCNONCHE 10:45
PROVIDERS: ATTEND Internal Medicine Hematology & Oncology
PROC: 3E013GC Introduction of Other Therapeutic Substance into Subcutaneous Tissue, Percutaneous Approach (ICD-10-PCS; principal; 2024-02-10)
DX: E83.111 Hemochromatosis due to repeated red blood cell transfusions (principal); K55.21 Angiodysplasia of colon with hemorrhage; Z76.89 Persons encountering health services in other specified circumstances
CPT/HCPCS: 96372; J0895

== ENCOUNTER 2024-02-11 17:30 | Day surgery (SDC) | payer OTHER, MEDICARE ==
[2024-02-11] MEDS: [UNRECOGNIZED DRUG - OTHER] IM ONE (17:42)
[2024-02-11 18:05] VITALS: BP 141/91; PULSE 91; RESP 18; TEMP 97.6
== END 2024-02-11 18:00 | disposition home or self-care (01) ==
LOC: J7W 17:30 → JONCNONCHE 17:30
PROVIDERS: ATTEND Internal Medicine Hematology & Oncology
PROC: 3E013GC Introduction of Other Therapeutic Substance into Subcutaneous Tissue, Percutaneous Approach (ICD-10-PCS; principal; 2024-02-11)
DX: E83.111 Hemochromatosis due to repeated red blood cell transfusions (principal); K55.21 Angiodysplasia of colon with hemorrhage
CPT/HCPCS: 96372; J0895

== ENCOUNTER 2024-02-12 17:30 | Day surgery (SDC) | payer OTHER, MEDICARE ==
[2024-02-12] MEDS: [UNRECOGNIZED DRUG - OTHER] IM ONE (17:37)
[2024-02-12 18:16] VITALS: BP 94/43; PULSE 95; RESP 16; TEMP 98.2
== END 2024-02-12 17:45 | disposition home or self-care (01) ==
LOC: JONCNONCHE 17:30 → J7W 17:30 → JONCNONCHE 17:45
PROVIDERS: ATTEND Internal Medicine Hematology & Oncology
PROC: 3E013GC Introduction of Other Therapeutic Substance into Subcutaneous Tissue, Percutaneous Approach (ICD-10-PCS; principal; 2024-02-12)
DX: E83.111 Hemochromatosis due to repeated red blood cell transfusions (principal); K55.21 Angiodysplasia of colon with hemorrhage
CPT/HCPCS: 96372; J0895

== ENCOUNTER 2024-02-13 13:45 | Day surgery (SDC) | payer OTHER, MEDICARE ==
[2024-02-13] MEDS: [UNRECOGNIZED DRUG - OTHER] IM ONE (14:16)
[2024-02-13 15:06] VITALS: BP 100/37; PULSE 84; RESP 18; TEMP 97.6
== END 2024-02-13 14:30 | disposition home or self-care (01) ==
LOC: J7W 13:45 → JONCNONCHE 13:45
PROVIDERS: ATTEND Internal Medicine Hematology & Oncology
PROC: 3E013GC Introduction of Other Therapeutic Substance into Subcutaneous Tissue, Percutaneous Approach (ICD-10-PCS; principal; 2024-02-13)
DX: E83.111 Hemochromatosis due to repeated red blood cell transfusions (principal); K55.21 Angiodysplasia of colon with hemorrhage
CPT/HCPCS: 96372; J0895

== ENCOUNTER 2024-02-16 11:29 | Day surgery (SDC) | payer OTHER, MEDICARE ==
[2024-02-16] MEDS: [UNRECOGNIZED DRUG - OTHER] IM ONE (11:38)
[2024-02-16 16:54] VITALS: BP 108/48; PULSE 89; RESP 18; TEMP 97.9
== END 2024-02-16 11:50 | disposition home or self-care (01) ==
LOC: JONCNONCHE 11:29 → J7W 11:31 → JONCNONCHE 11:50
PROVIDERS: ATTEND Internal Medicine Hematology & Oncology
PROC: 3E013GC Introduction of Other Therapeutic Substance into Subcutaneous Tissue, Percutaneous Approach (ICD-10-PCS; principal; 2024-02-16)
DX: E83.111 Hemochromatosis due to repeated red blood cell transfusions (principal); K55.21 Angiodysplasia of colon with hemorrhage
CPT/HCPCS: 96372; J0895

== ENCOUNTER 2024-02-17 17:14 | Day surgery (SDC) | payer OTHER, MEDICARE ==
[~2024-02-17 17:14] MED LIST changes: -ERTAPENEM SODIUM 1 GM in SODIUM CHLORIDE 50 ML IVPB ONE; +[UNRECOGNIZED DRUG - OTHER] IM ONE
[2024-02-17] MEDS: [UNRECOGNIZED DRUG - OTHER] IM ONE (17:15)
[2024-02-17 17:18] VITALS: BP 129/52; PULSE 90; RESP 20; TEMP 97.8
== END 2024-02-17 17:45 | disposition home or self-care (01) ==
LOC: JONCNONCHE 17:14 → J7W 17:15 → JONCNONCHE 17:45
PROVIDERS: ATTEND Internal Medicine Hematology & Oncology
PROC: 3E013GC Introduction of Other Therapeutic Substance into Subcutaneous Tissue, Percutaneous Approach (ICD-10-PCS; principal; 2024-02-17)
DX: E83.111 Hemochromatosis due to repeated red blood cell transfusions (principal); K55.21 Angiodysplasia of colon with hemorrhage
CPT/HCPCS: 96372; J0895

== ENCOUNTER 2024-02-18 07:49 | Day surgery (SDC) | payer OTHER, MEDICARE ==
[2024-02-18 10:34] VITALS: RESP 20
[2024-02-18] MEDS: TORSEMIDE 20 MG TABLET (FP) PO ONE (13:17)
[2024-02-18] MEDS: [UNRECOGNIZED DRUG - OTHER] IM ONE (16:54)
[2024-02-18 17:01] VITALS: BP 110/55; PULSE 84; TEMP 98.4
[2024-02-18] MEDS: PORTA CATH FLUSH 10 ML IVPUSH PRN (17:28)
[2024-02-18 18:21] LABS: HEMATOCRIT 25.6 % (32.4-45.2); HEMOGLOBIN 8.7 GM/dL (10.7-15.3); MCH 29.3 pg (25.7-33.7); MCHC 34.1 g/dl (32.0-36.0); MEAN CELL VOLUME 85.8 fl (80-96); MEAN PLT VOLUME 8.1 fl (7.5-11.1); PLATELET COUNT 81 10^3/uL (134-434); RBC 2.99 M/mm3 (3.60-5.2); WHITE BLOOD COUNT 3.7 K/mm3 (4.0-10.0)
[2024-02-18 19:00] LABS: ANISOCYTOSIS 1+; MACROCYTOSIS 0
== END 2024-02-18 17:35 | disposition home or self-care (01) ==
LOC: JONCNONCHE 07:49 → J7W 07:50 → JONCNONCHE 17:35
PROVIDERS: ATTEND Internal Medicine Hematology & Oncology
PROC: 3E013GC Introduction of Other Therapeutic Substance into Subcutaneous Tissue, Percutaneous Approach (ICD-10-PCS; principal; 2024-02-18)
DX: E83.111 Hemochromatosis due to repeated red blood cell transfusions (principal); K55.21 Angiodysplasia of colon with hemorrhage
CPT/HCPCS: 36415; 36430; 85025; 86850; 86900; 86901; 86922; 96372; J0895; P9058

== ENCOUNTER 2024-02-20 12:45 | Day surgery (SDC) | payer OTHER, MEDICARE ==
[2024-02-20] MEDS: [UNRECOGNIZED DRUG - OTHER] IM ONE (13:10)
[2024-02-20 16:44] VITALS: BP 95/56; PULSE 86; RESP 20; TEMP 97.8
== END 2024-02-20 13:30 | disposition home or self-care (01) ==
LOC: JONCNONCHE 12:45 → J7W 12:49 → JONCNONCHE 13:30
PROVIDERS: ATTEND Internal Medicine Hematology & Oncology
PROC: 3E013GC Introduction of Other Therapeutic Substance into Subcutaneous Tissue, Percutaneous Approach (ICD-10-PCS; principal; 2024-02-20)
DX: E83.111 Hemochromatosis due to repeated red blood cell transfusions (principal); K55.21 Angiodysplasia of colon with hemorrhage
CPT/HCPCS: 96372; J0895

== ENCOUNTER 2024-02-24 17:40 | Day surgery (SDC) | payer OTHER, MEDICARE ==
[2024-02-24] MEDS: [UNRECOGNIZED DRUG - OTHER] IM ONE (17:40)
[2024-02-24 19:03] VITALS: BP 108/58; PULSE 87; RESP 20; TEMP 97.5
== END 2024-02-24 18:00 | disposition home or self-care (01) ==
LOC: J7W 17:40 → JONCNONCHE 17:40
PROVIDERS: ATTEND Internal Medicine Hematology & Oncology
PROC: 3E013GC Introduction of Other Therapeutic Substance into Subcutaneous Tissue, Percutaneous Approach (ICD-10-PCS; principal; 2024-02-24)
DX: E83.111 Hemochromatosis due to repeated red blood cell transfusions (principal); K55.21 Angiodysplasia of colon with hemorrhage
CPT/HCPCS: 96372; J0895

== ENCOUNTER 2024-02-25 11:26 | Day surgery (SDC) | payer OTHER, MEDICARE ==
[2024-02-25] MEDS: [UNRECOGNIZED DRUG - OTHER] IM ONE (11:35)
[2024-02-25 15:12] VITALS: BP 112/57; PULSE 87; RESP 20; TEMP 97.7
== END 2024-02-25 12:00 | disposition home or self-care (01) ==
LOC: JONCNONCHE 11:26 → J7W 11:26 → JONCNONCHE 12:00
PROVIDERS: ATTEND Internal Medicine Hematology & Oncology
PROC: 3E013GC Introduction of Other Therapeutic Substance into Subcutaneous Tissue, Percutaneous Approach (ICD-10-PCS; principal; 2024-02-25)
DX: E83.111 Hemochromatosis due to repeated red blood cell transfusions (principal); K55.21 Angiodysplasia of colon with hemorrhage
CPT/HCPCS: 96372; J0895

== ENCOUNTER 2024-02-26 17:30 | Day surgery (SDC) | payer OTHER, MEDICARE ==
[2024-02-26] MEDS: [UNRECOGNIZED DRUG - OTHER] IM ONE (17:36)
[2024-02-26 17:41] VITALS: BP 103/46; PULSE 96; RESP 20; TEMP 97.8
== END 2024-02-26 17:45 | disposition home or self-care (01) ==
LOC: J7W 17:30 → JONCNONCHE 17:30
PROVIDERS: ATTEND Internal Medicine Hematology & Oncology
PROC: 3E013GC Introduction of Other Therapeutic Substance into Subcutaneous Tissue, Percutaneous Approach (ICD-10-PCS; principal; 2024-02-26)
DX: E83.111 Hemochromatosis due to repeated red blood cell transfusions (principal); K55.21 Angiodysplasia of colon with hemorrhage
CPT/HCPCS: 96372; J0895

== ENCOUNTER 2024-02-27 14:10 | Day surgery (SDC) | payer OTHER, MEDICARE ==
[2024-02-27] MEDS: [UNRECOGNIZED DRUG - OTHER] IM ONE (14:30)
[2024-02-27 14:54] VITALS: BP 96/53; PULSE 77; RESP 18; TEMP 98.2
== END 2024-02-27 14:30 | disposition home or self-care (01) ==
LOC: JONCNONCHE 14:10 → J7W 14:11 → JONCNONCHE 14:30
PROVIDERS: ATTEND Internal Medicine Hematology & Oncology
PROC: 3E013GC Introduction of Other Therapeutic Substance into Subcutaneous Tissue, Percutaneous Approach (ICD-10-PCS; principal; 2024-02-27)
DX: E83.111 Hemochromatosis due to repeated red blood cell transfusions (principal); K55.21 Angiodysplasia of colon with hemorrhage
CPT/HCPCS: 96372; J0895

== ENCOUNTER 2024-03-01 11:09 | Day surgery (SDC) | payer OTHER, MEDICARE ==
[2024-03-01] MEDS: [UNRECOGNIZED DRUG - OTHER] IM ONE (11:20)
[2024-03-01 15:36] VITALS: BP 116/38; PULSE 86; RESP 18; TEMP 97.8
== END 2024-03-01 11:40 | disposition home or self-care (01) ==
LOC: JONCNONCHE 11:09 → J7W 11:09 → JONCNONCHE 11:40
PROVIDERS: ATTEND Internal Medicine Hematology & Oncology
PROC: 3E013GC Introduction of Other Therapeutic Substance into Subcutaneous Tissue, Percutaneous Approach (ICD-10-PCS; principal; 2024-03-01)
DX: E83.111 Hemochromatosis due to repeated red blood cell transfusions (principal); K55.21 Angiodysplasia of colon with hemorrhage
CPT/HCPCS: 96372; J0895

== ENCOUNTER 2024-03-03 17:35 | Day surgery (SDC) | payer OTHER, MEDICARE ==
[2024-03-03] MEDS: [UNRECOGNIZED DRUG - OTHER] IM ONE (17:44)
[2024-03-03 18:24] VITALS: BP 124/47; PULSE 91; RESP 20; TEMP 97.3
== END 2024-03-03 17:50 | disposition home or self-care (01) ==
LOC: J7W 17:35 → JONCNONCHE 17:35
PROVIDERS: ATTEND Internal Medicine Hematology & Oncology
PROC: 3E013GC Introduction of Other Therapeutic Substance into Subcutaneous Tissue, Percutaneous Approach (ICD-10-PCS; principal; 2024-03-03)
DX: E83.111 Hemochromatosis due to repeated red blood cell transfusions (principal); K55.21 Angiodysplasia of colon with hemorrhage
CPT/HCPCS: 96372; J0895

== ENCOUNTER 2024-03-04 09:00 | Day surgery (SDC) | payer OTHER, MEDICARE ==
[2024-03-04] MEDS ORDERED: FUROSEMIDE 40 MG/4 ML INJECTABLE VIAL IVPUSH PRN (09:49)
[2024-03-04] MEDS: FUROSEMIDE 40 MG/4 ML INJECTABLE VIAL IVPUSH PRN (14:23)
[2024-03-04] MEDS: [UNRECOGNIZED DRUG - OTHER] IM ONE (17:49)
[2024-03-04 17:58] VITALS: RESP 18
[2024-03-04 18:06] VITALS: BP 106/40; PULSE 67; TEMP 97.7
[2024-03-04] MEDS: PORTA CATH FLUSH 10 ML IVPUSH PRN (18:23)
[2024-03-04 18:31] LABS: HEMATOCRIT 24.8 % (32.4-45.2); HEMOGLOBIN 8.4 GM/dL (10.7-15.3); MCH 28.7 pg (25.7-33.7); MCHC 33.9 g/dl (32.0-36.0); MEAN CELL VOLUME 84.6 fl (80-96); RBC 2.93 M/mm3 (3.60-5.2); RDW 14.4 % (11.6-15.6)
[2024-03-04 18:32] LABS: BASO % 0.2 % (0-2.0); EOS % 0.1 % (0-4.5); MEAN PLT VOLUME 7.5 fl (7.5-11.1); MONO % 6.8 % (3.8-10.2); NEUT % 57.9 % (42.8-82.8); PLATELET COUNT 75 10^3/uL (134-434)
== END 2024-03-04 18:28 | disposition home or self-care (01) ==
LOC: JONCNONCHE 09:00 → J7W 09:03 → JONCNONCHE 18:28
PROVIDERS: ATTEND Internal Medicine Hematology & Oncology
PROC: 3E033GC Introduction of Other Therapeutic Substance into Peripheral Vein, Percutaneous Approach (ICD-10-PCS; principal; 2024-03-04)
PROC: 30233N1 Transfusion of Nonautologous Red Blood Cells into Peripheral Vein, Percutaneous Approach (ICD-10-PCS; 2024-03-04)
DX: K55.21 Angiodysplasia of colon with hemorrhage (principal)
CPT/HCPCS: 36415; 36430; 85025; 86850; 86900; 86901; 86922; 96372; 96374; J0895; P9058

== ENCOUNTER 2024-03-05 09:28 | Day surgery (SDC) | payer OTHER, MEDICARE ==
[2024-03-05] MEDS: [UNRECOGNIZED DRUG - OTHER] IM ONE (09:45)
[2024-03-05 14:08] VITALS: BP 96/45; PULSE 79; RESP 18; TEMP 98.6
== END 2024-03-05 10:00 | disposition home or self-care (01) ==
LOC: JONCNONCHE 09:28 → J7W 09:29 → JONCNONCHE 10:00
PROVIDERS: ATTEND Internal Medicine Hematology & Oncology
PROC: 3E013GC Introduction of Other Therapeutic Substance into Subcutaneous Tissue, Percutaneous Approach (ICD-10-PCS; principal; 2024-03-05)
DX: E83.111 Hemochromatosis due to repeated red blood cell transfusions (principal); K55.21 Angiodysplasia of colon with hemorrhage; C90.00 Multiple myeloma not having achieved remission
CPT/HCPCS: 96372; J0895

== ENCOUNTER 2024-03-08 12:00 | Day surgery (SDC) | payer OTHER, MEDICARE ==
[2024-03-08] MEDS: [UNRECOGNIZED DRUG - OTHER] IM ONE (12:04)
[2024-03-08 16:23] VITALS: BP 127/43; PULSE 75; RESP 20; TEMP 97.7
== END 2024-03-08 12:30 | disposition home or self-care (01) ==
LOC: JONCNONCHE 12:00 → J7W 12:44
PROVIDERS: ATTEND Internal Medicine Hematology & Oncology
PROC: 3E013GC Introduction of Other Therapeutic Substance into Subcutaneous Tissue, Percutaneous Approach (ICD-10-PCS; principal; 2024-03-08)
DX: E83.111 Hemochromatosis due to repeated red blood cell transfusions (principal); K55.21 Angiodysplasia of colon with hemorrhage; C90.00 Multiple myeloma not having achieved remission
CPT/HCPCS: 96372; J0895

== ENCOUNTER 2024-03-09 17:39 | Day surgery (SDC) | payer OTHER, MEDICARE ==
[2024-03-09] MEDS: [UNRECOGNIZED DRUG - OTHER] IM ONE (17:39)
[2024-03-09 17:49] VITALS: BP 98/50; PULSE 82; RESP 18; TEMP 98.2
== END 2024-03-09 17:53 | disposition home or self-care (01) ==
LOC: JONCNONCHE 17:39 → J7W 17:40 → JONCNONCHE 17:53
PROVIDERS: ATTEND Internal Medicine Hematology & Oncology
PROC: 3E023GC Introduction of Other Therapeutic Substance into Muscle, Percutaneous Approach (ICD-10-PCS; principal; 2024-03-09)
DX: K55.21 Angiodysplasia of colon with hemorrhage (principal)
CPT/HCPCS: 96372; J0895

== ENCOUNTER 2024-03-11 17:35 | Day surgery (SDC) | payer OTHER, MEDICARE ==
[2024-03-11] MEDS: [UNRECOGNIZED DRUG - OTHER] IM ONE (17:44)
[2024-03-11 17:58] VITALS: BP 112/52; PULSE 73; RESP 20; TEMP 98.1
== END 2024-03-11 17:59 | disposition home or self-care (01) ==
LOC: J7W 17:35 → JONCNONCHE 17:35
PROVIDERS: ATTEND Internal Medicine Hematology & Oncology
PROC: 3E023GC Introduction of Other Therapeutic Substance into Muscle, Percutaneous Approach (ICD-10-PCS; principal; 2024-03-11)
DX: K55.21 Angiodysplasia of colon with hemorrhage (principal)
CPT/HCPCS: 96372; J0895

== ENCOUNTER 2024-03-12 10:05 | Day surgery (SDC) | payer OTHER, MEDICARE ==
[2024-03-12] MEDS: [UNRECOGNIZED DRUG - OTHER] IM ONE (10:15)
[2024-03-12 17:55] VITALS: BP 110/47; PULSE 75; RESP 20; TEMP 97.8
== END 2024-03-12 10:25 | disposition home or self-care (01) ==
LOC: J7W 10:05 → JONCNONCHE 10:05
PROVIDERS: ATTEND Internal Medicine Hematology & Oncology
PROC: 3E023GC Introduction of Other Therapeutic Substance into Muscle, Percutaneous Approach (ICD-10-PCS; principal; 2024-03-12)
DX: K55.21 Angiodysplasia of colon with hemorrhage (principal)
CPT/HCPCS: 96372; J0895

== ENCOUNTER 2024-03-15 10:44 | Day surgery (SDC) | payer OTHER, MEDICARE ==
[2024-03-15] MEDS: [UNRECOGNIZED DRUG - OTHER] IM ONE (11:19)
[2024-03-15 15:52] VITALS: BP 110/34; PULSE 71; RESP 16; TEMP 97.7
== END 2024-03-15 11:10 | disposition home or self-care (01) ==
LOC: JONCNONCHE 10:44 → J7W 10:45 → JONCNONCHE 11:10
PROVIDERS: ATTEND Internal Medicine Hematology & Oncology
PROC: 3E013GC Introduction of Other Therapeutic Substance into Subcutaneous Tissue, Percutaneous Approach (ICD-10-PCS; principal; 2024-03-15)
DX: E83.111 Hemochromatosis due to repeated red blood cell transfusions (principal); K55.21 Angiodysplasia of colon with hemorrhage
CPT/HCPCS: 96372; J0895

== ENCOUNTER 2024-03-16 17:40 | Day surgery (SDC) | payer OTHER, MEDICARE ==
[2024-03-16] MEDS: [UNRECOGNIZED DRUG - OTHER] IM ONE (17:40)
[2024-03-16 18:37] VITALS: BP 136/36; PULSE 98; RESP 18; TEMP 97.7
== END 2024-03-16 17:55 | disposition home or self-care (01) ==
LOC: J7W 17:40 → JONCNONCHE 17:40
PROVIDERS: ATTEND Internal Medicine Hematology & Oncology
PROC: 3E023GC Introduction of Other Therapeutic Substance into Muscle, Percutaneous Approach (ICD-10-PCS; principal; 2024-03-16)
DX: K55.21 Angiodysplasia of colon with hemorrhage (principal)
CPT/HCPCS: 96372; J0895

== ENCOUNTER 2024-03-17 07:50 | Day surgery (SDC) | payer OTHER, MEDICARE ==
[2024-03-17] MEDS: [UNRECOGNIZED DRUG - OTHER] IM ONE (17:51)
[2024-03-17] MEDS ORDERED: FUROSEMIDE 40 MG/4 ML INJECTABLE VIAL ONE (17:53)
[2024-03-17] MEDS: PORTA CATH FLUSH 10 ML IVPUSH PRN (17:55)
[2024-03-17] MEDS: FUROSEMIDE 40 MG/4 ML INJECTABLE VIAL IVPUSH ONE (17:55)
[2024-03-17 18:10] VITALS: BP 95/44; PULSE 71; RESP 18; TEMP 98
[2024-03-17 18:51] LABS: BASO % 0.1 % (0-2.0); EOS % 0.2 % (0-4.5); HEMATOCRIT 26.4 % (32.4-45.2); HEMOGLOBIN 8.9 GM/dL (10.7-15.3); LYMPH % 32.7 % (8-40); MCH 28.4 pg (25.7-33.7); MCHC 33.6 g/dl (32.0-36.0); MEAN CELL VOLUME 84.5 fl (80-96); MEAN PLT VOLUME 7.4 fl (7.5-11.1); MONO % 6.6 % (3.8-10.2); NEUT % 60.4 % (42.8-82.8); PLATELET COUNT 77 10^3/uL (134-434); RBC 3.12 M/mm3 (3.60-5.2); RDW 14.5 % (11.6-15.6); WHITE BLOOD COUNT 2.7 K/mm3 (4.0-10.0)
[2024-03-17 20:17] LABS: ANISOCYTOSIS 1+; MACROCYTOSIS 0; OVALOCYTE 1+
== END 2024-03-17 18:50 | disposition home or self-care (01) ==
LOC: J7W 07:50 → JONCNONCHE 07:50
PROVIDERS: ATTEND Internal Medicine Hematology & Oncology
PROC: 3E023GC Introduction of Other Therapeutic Substance into Muscle, Percutaneous Approach (ICD-10-PCS; principal; 2024-03-17)
DX: K55.21 Angiodysplasia of colon with hemorrhage (principal)
CPT/HCPCS: 36415; 36430; 85025; 86850; 86900; 86901; 86922; 96372; J0895; P9038; P9058

== ENCOUNTER 2024-03-18 17:34 | Day surgery (SDC) | payer OTHER, MEDICARE ==
[2024-03-18] MEDS: [UNRECOGNIZED DRUG - OTHER] IM ONE (17:33)
[2024-03-18 18:01] VITALS: BP 116/37; PULSE 80; RESP 18; TEMP 97.7
== END 2024-03-18 17:50 | disposition home or self-care (01) ==
LOC: JONCNONCHE 17:34 → J7W 17:35 → JONCNONCHE 17:50
PROVIDERS: ATTEND Internal Medicine Hematology & Oncology
PROC: 3E023GC Introduction of Other Therapeutic Substance into Muscle, Percutaneous Approach (ICD-10-PCS; principal; 2024-03-18)
DX: K55.21 Angiodysplasia of colon with hemorrhage (principal)
CPT/HCPCS: 96372; J0895

== ENCOUNTER 2024-03-19 13:35 | Day surgery (SDC) | payer OTHER, MEDICARE ==
[2024-03-19] MEDS: [UNRECOGNIZED DRUG - OTHER] IM ONE (13:32)
[2024-03-19 17:03] VITALS: BP 118/55; PULSE 76; RESP 18; TEMP 97.5
== END 2024-03-19 13:50 | disposition home or self-care (01) ==
LOC: J7W 13:35 → JONCNONCHE 13:35
PROVIDERS: ATTEND Internal Medicine Hematology & Oncology
PROC: 3E023GC Introduction of Other Therapeutic Substance into Muscle, Percutaneous Approach (ICD-10-PCS; principal; 2024-03-19)
DX: K55.21 Angiodysplasia of colon with hemorrhage (principal)
CPT/HCPCS: 96372; J0895

== ENCOUNTER 2024-03-22 09:21 | Day surgery (SDC) | payer OTHER, MEDICARE ==
[2024-03-22] MEDS: [UNRECOGNIZED DRUG - OTHER] IM ONE (09:45)
[2024-03-22 17:43] VITALS: BP 88/43; PULSE 75; RESP 18; TEMP 98.1
== END 2024-03-22 10:00 | disposition home or self-care (01) ==
LOC: JONCNONCHE 09:21 → J7W 09:22 → JONCNONCHE 10:00
PROVIDERS: ATTEND Internal Medicine Hematology & Oncology
PROC: 3E023GC Introduction of Other Therapeutic Substance into Muscle, Percutaneous Approach (ICD-10-PCS; principal; 2024-03-22)
DX: K55.21 Angiodysplasia of colon with hemorrhage (principal)
CPT/HCPCS: 96372; J0895

== ENCOUNTER 2024-03-23 17:30 | Day surgery (SDC) | payer OTHER, MEDICARE ==
[2024-03-23] MEDS: [UNRECOGNIZED DRUG - OTHER] IM ONE (17:36)
[2024-03-23 18:42] VITALS: BP 128/55; PULSE 83; RESP 18; TEMP 97.6
== END 2024-03-23 17:50 | disposition home or self-care (01) ==
LOC: J7W 17:30 → JONCNONCHE 17:30
PROVIDERS: ATTEND Internal Medicine Hematology & Oncology
PROC: 3E023GC Introduction of Other Therapeutic Substance into Muscle, Percutaneous Approach (ICD-10-PCS; principal; 2024-03-23)
DX: K55.21 Angiodysplasia of colon with hemorrhage (principal)
CPT/HCPCS: 96365; J0895

== ENCOUNTER 2024-03-24 17:42 | Day surgery (SDC) | payer OTHER, MEDICARE ==
[2024-03-24] MEDS: [UNRECOGNIZED DRUG - OTHER] IM ONE (17:41)
[2024-03-24 18:47] VITALS: BP 119/45; PULSE 89; RESP 20; TEMP 97.8
== END 2024-03-24 18:00 | disposition home or self-care (01) ==
LOC: JONCNONCHE 17:42 → J7W 17:43 → JONCNONCHE 18:00
PROVIDERS: ATTEND Internal Medicine Hematology & Oncology
PROC: 3E023GC Introduction of Other Therapeutic Substance into Muscle, Percutaneous Approach (ICD-10-PCS; principal; 2024-03-24)
DX: K55.21 Angiodysplasia of colon with hemorrhage (principal)
CPT/HCPCS: 96372; J0895

== ENCOUNTER 2024-03-25 17:30 | Day surgery (SDC) | payer OTHER, MEDICARE ==
[2024-03-25 17:39] VITALS: BP 117/36; PULSE 93; RESP 16; TEMP 97.4
[2024-03-25] MEDS: [UNRECOGNIZED DRUG - OTHER] IM ONE (17:45)
== END 2024-03-25 18:00 | disposition home or self-care (01) ==
LOC: J7W 17:30 → JONCNONCHE 17:30
PROVIDERS: ATTEND Internal Medicine Hematology & Oncology
PROC: 3E023GC Introduction of Other Therapeutic Substance into Muscle, Percutaneous Approach (ICD-10-PCS; principal; 2024-03-25)
DX: E83.111 Hemochromatosis due to repeated red blood cell transfusions (principal); K55.21 Angiodysplasia of colon with hemorrhage; C90.00 Multiple myeloma not having achieved remission
CPT/HCPCS: 96372; J0895

== ENCOUNTER 2024-03-26 10:45 | Day surgery (SDC) | payer OTHER, MEDICARE ==
[2024-03-26] MEDS: [UNRECOGNIZED DRUG - OTHER] IM ONE (10:44)
[2024-03-26 15:38] VITALS: BP 104/55; PULSE 89; RESP 18; TEMP 97.7
== END 2024-03-26 11:00 | disposition home or self-care (01) ==
LOC: JONCNONCHE 10:45 → J7W 14:04
PROVIDERS: ATTEND Internal Medicine Hematology & Oncology
PROC: 3E023GC Introduction of Other Therapeutic Substance into Muscle, Percutaneous Approach (ICD-10-PCS; principal; 2024-03-26)
DX: E83.111 Hemochromatosis due to repeated red blood cell transfusions (principal); K55.21 Angiodysplasia of colon with hemorrhage
CPT/HCPCS: 96372; J0895

== ENCOUNTER 2024-03-29 10:11 | Day surgery (SDC) | payer OTHER, MEDICARE ==
[2024-03-29] MEDS: [UNRECOGNIZED DRUG - OTHER] IM ONE (10:38)
[2024-03-29 16:38] VITALS: BP 93/42; PULSE 85; RESP 18; TEMP 97.5
== END 2024-03-29 10:50 | disposition home or self-care (01) ==
LOC: JONCNONCHE 10:11 → J7W 10:13 → JONCNONCHE 10:50
PROVIDERS: ATTEND Internal Medicine Hematology & Oncology
PROC: 3E023GC Introduction of Other Therapeutic Substance into Muscle, Percutaneous Approach (ICD-10-PCS; principal; 2024-03-29)
DX: E83.111 Hemochromatosis due to repeated red blood cell transfusions (principal); K55.21 Angiodysplasia of colon with hemorrhage
CPT/HCPCS: 96372; J0895

== ENCOUNTER 2024-03-30 17:30 | Day surgery (SDC) | payer OTHER, MEDICARE ==
[2024-03-30] MEDS: [UNRECOGNIZED DRUG - OTHER] IM ONE (17:43)
[2024-03-30 18:07] VITALS: BP 116/41; PULSE 82; RESP 20; TEMP 97.5
== END 2024-03-30 18:00 | disposition home or self-care (01) ==
LOC: JONCNONCHE 17:30 → J7W 17:43 → JONCNONCHE 18:00
PROVIDERS: ATTEND Internal Medicine Hematology & Oncology
PROC: 3E023GC Introduction of Other Therapeutic Substance into Muscle, Percutaneous Approach (ICD-10-PCS; principal; 2024-03-30)
DX: E83.111 Hemochromatosis due to repeated red blood cell transfusions (principal); K55.21 Angiodysplasia of colon with hemorrhage
CPT/HCPCS: 96372; J0895

== ENCOUNTER 2024-03-31 17:30 | Day surgery (SDC) | payer OTHER, MEDICARE ==
[2024-03-31] MEDS: [UNRECOGNIZED DRUG - OTHER] IM ONE (17:38)
[2024-03-31 18:28] VITALS: BP 93/45; PULSE 71; RESP 16; TEMP 97.2
== END 2024-03-31 17:45 | disposition home or self-care (01) ==
LOC: JONCNONCHE 17:30 → J7W 17:30 → JONCNONCHE 17:45
PROVIDERS: ATTEND Internal Medicine Hematology & Oncology
PROC: 3E023GC Introduction of Other Therapeutic Substance into Muscle, Percutaneous Approach (ICD-10-PCS; principal; 2024-03-31)
DX: E83.111 Hemochromatosis due to repeated red blood cell transfusions (principal); K55.21 Angiodysplasia of colon with hemorrhage
CPT/HCPCS: 96372; J0895

== ENCOUNTER 2024-04-01 07:48 | Day surgery (SDC) | payer OTHER, MEDICARE ==
[2024-04-01] MEDS: FUROSEMIDE 40 MG/4 ML INJECTABLE VIAL IVPUSH ONE (13:15)
[2024-04-01 18:17] VITALS: RESP 20
[2024-04-01] MEDS: [UNRECOGNIZED DRUG - OTHER] IM ONE (18:23)
[2024-04-01 18:31] LABS: BASO % 0.2 % (0-2.0); EOS % 0.1 % (0-4.5); HEMATOCRIT 25.1 % (32.4-45.2); HEMOGLOBIN 8.7 GM/dL (10.7-15.3); LYMPH % 36.8 % (8-40); MCH 28.9 pg (25.7-33.7); MCHC 34.6 g/dl (32.0-36.0); MEAN CELL VOLUME 83.5 fl (80-96); MEAN PLT VOLUME 7.6 fl (7.5-11.1); MONO % 6.9 % (3.8-10.2); PLATELET COUNT 72 10^3/uL (134-434); RBC 3.01 M/mm3 (3.60-5.2)
[2024-04-01] MEDS: PORTA CATH FLUSH 10 ML IVPUSH PRN (19:21)
[2024-04-01 19:23] VITALS: BP 111/56; PULSE 71; TEMP 97.8
== END 2024-04-01 19:24 | disposition home or self-care (01) ==
LOC: JONCNONCHE 07:48 → J7W 07:49 → JONCNONCHE 19:24
PROVIDERS: ATTEND Internal Medicine Hematology & Oncology
PROC: 30233N1 Transfusion of Nonautologous Red Blood Cells into Peripheral Vein, Percutaneous Approach (ICD-10-PCS; principal; 2024-04-01)
DX: K55.21 Angiodysplasia of colon with hemorrhage (principal)
CPT/HCPCS: 36415; 36430; 85025; 86850; 86900; 86901; 86922; P9058

== ENCOUNTER 2024-04-02 13:15 | Day surgery (SDC) | payer OTHER, MEDICARE ==
[2024-04-02] MEDS: [UNRECOGNIZED DRUG - OTHER] IM ONE (13:28)
[2024-04-02 14:33] VITALS: BP 115/52; PULSE 84; RESP 20; TEMP 98.2
== END 2024-04-02 13:50 | disposition home or self-care (01) ==
LOC: JONCNONCHE 13:15 → J7W 13:15 → JONCNONCHE 13:50
PROVIDERS: ATTEND Internal Medicine Hematology & Oncology
PROC: 3E013GC Introduction of Other Therapeutic Substance into Subcutaneous Tissue, Percutaneous Approach (ICD-10-PCS; principal; 2024-04-02)
DX: E83.111 Hemochromatosis due to repeated red blood cell transfusions (principal); K55.21 Angiodysplasia of colon with hemorrhage; C90.00 Multiple myeloma not having achieved remission
CPT/HCPCS: 96372; J0895

== ENCOUNTER 2024-04-05 13:25 | Day surgery (SDC) | payer OTHER, MEDICARE ==
[2024-04-05] MEDS: [UNRECOGNIZED DRUG - OTHER] IM ONE (13:35)
[2024-04-05 17:33] VITALS: BP 107/56; PULSE 75; RESP 20; TEMP 97.3
== END 2024-04-05 13:45 | disposition home or self-care (01) ==
LOC: JONCCHEMO 13:25
PROVIDERS: ATTEND Internal Medicine Hematology & Oncology
PROC: 3E023GC Introduction of Other Therapeutic Substance into Muscle, Percutaneous Approach (ICD-10-PCS; principal; 2024-04-05)
DX: E83.111 Hemochromatosis due to repeated red blood cell transfusions (principal); K55.21 Angiodysplasia of colon with hemorrhage
CPT/HCPCS: 96372; J0895

== ENCOUNTER 2024-04-06 17:35 | Day surgery (SDC) | payer OTHER, MEDICARE ==
[2024-04-06] MEDS: [UNRECOGNIZED DRUG - OTHER] IM ONE (17:41)
[2024-04-06 18:01] VITALS: BP 107/57; PULSE 83; RESP 18; TEMP 97.2
== END 2024-04-06 17:50 | disposition home or self-care (01) ==
LOC: J7W 17:35 → JONCCHEMO 17:35
PROVIDERS: ATTEND Internal Medicine Hematology & Oncology
PROC: 3E023GC Introduction of Other Therapeutic Substance into Muscle, Percutaneous Approach (ICD-10-PCS; principal; 2024-04-06)
DX: E83.111 Hemochromatosis due to repeated red blood cell transfusions (principal); K55.21 Angiodysplasia of colon with hemorrhage
CPT/HCPCS: 96372; J0895

== ENCOUNTER 2024-04-07 17:33 | Day surgery (SDC) | payer OTHER, MEDICARE ==
[2024-04-07] MEDS: [UNRECOGNIZED DRUG - OTHER] IM ONE (17:32)
[2024-04-07 18:48] VITALS: BP 94/38; PULSE 70; RESP 20; TEMP 98
== END 2024-04-07 17:50 | disposition home or self-care (01) ==
LOC: J7W 17:33 → JONCCHEMO 17:33
PROVIDERS: ATTEND Internal Medicine Hematology & Oncology
PROC: 3E033GC Introduction of Other Therapeutic Substance into Peripheral Vein, Percutaneous Approach (ICD-10-PCS; principal; 2024-04-07)
DX: E83.111 Hemochromatosis due to repeated red blood cell transfusions (principal); K55.21 Angiodysplasia of colon with hemorrhage; C90.00 Multiple myeloma not having achieved remission
CPT/HCPCS: 96372

== ENCOUNTER 2024-04-08 17:25 | Day surgery (SDC) | payer OTHER, MEDICARE ==
[2024-04-08] MEDS: [UNRECOGNIZED DRUG - OTHER] IM ONE (17:27)
[2024-04-08 17:39] VITALS: BP 129/44; PULSE 76; RESP 20; TEMP 97.4
== END 2024-04-08 17:43 | disposition home or self-care (01) ==
LOC: JONCCHEMO 17:25
PROVIDERS: ATTEND Internal Medicine Hematology & Oncology
PROC: 3E023GC Introduction of Other Therapeutic Substance into Muscle, Percutaneous Approach (ICD-10-PCS; principal; 2024-04-08)
DX: E83.111 Hemochromatosis due to repeated red blood cell transfusions (principal); K55.21 Angiodysplasia of colon with hemorrhage
CPT/HCPCS: 96372

== ENCOUNTER 2024-04-09 11:32 | Day surgery (SDC) | payer OTHER, MEDICARE ==
[2024-04-09] MEDS: [UNRECOGNIZED DRUG - OTHER] IM ONE (11:10)
[2024-04-09 17:28] VITALS: BP 86/40; PULSE 84; RESP 20; TEMP 97.4
== END 2024-04-09 13:00 | disposition home or self-care (01) ==
LOC: JONCCHEMO 11:32 → J7W 11:33 → JONCCHEMO 13:00
PROVIDERS: ATTEND Internal Medicine Hematology & Oncology
PROC: 3E033GC Introduction of Other Therapeutic Substance into Peripheral Vein, Percutaneous Approach (ICD-10-PCS; principal; 2024-04-09)
DX: E83.111 Hemochromatosis due to repeated red blood cell transfusions (principal); K55.21 Angiodysplasia of colon with hemorrhage
CPT/HCPCS: 96372

== ENCOUNTER 2024-04-12 09:52 | Day surgery (SDC) | payer OTHER, MEDICARE ==
[2024-04-12] MEDS: [UNRECOGNIZED DRUG - OTHER] IM ONE (10:34)
[2024-04-12 16:08] VITALS: BP 115/54; PULSE 79; RESP 18; TEMP 97.6
== END 2024-04-12 10:45 | disposition home or self-care (01) ==
LOC: JONCCHEMO 09:52
PROVIDERS: ATTEND Internal Medicine Hematology & Oncology
PROC: 3E023GC Introduction of Other Therapeutic Substance into Muscle, Percutaneous Approach (ICD-10-PCS; principal; 2024-04-12)
DX: E83.111 Hemochromatosis due to repeated red blood cell transfusions (principal); K55.21 Angiodysplasia of colon with hemorrhage
CPT/HCPCS: 96372

== ENCOUNTER 2024-04-13 17:30 | Day surgery (SDC) | payer OTHER, MEDICARE ==
[2024-04-13 18:31] VITALS: BP 117/53; PULSE 81; RESP 20; TEMP 97.9
[2024-04-13] MEDS: [UNRECOGNIZED DRUG - OTHER] IM ONE (18:32)
== END 2024-04-13 18:43 | disposition home or self-care (01) ==
LOC: JONCNONCHE 17:30 → J7W 17:30 → JONCNONCHE 18:43
PROVIDERS: ATTEND Internal Medicine Hematology & Oncology
PROC: 3E023GC Introduction of Other Therapeutic Substance into Muscle, Percutaneous Approach (ICD-10-PCS; principal; 2024-04-13)
DX: E83.111 Hemochromatosis due to repeated red blood cell transfusions (principal); K55.21 Angiodysplasia of colon with hemorrhage
CPT/HCPCS: 96372

== ENCOUNTER 2024-04-14 10:29 | Day surgery (SDC) | payer OTHER, MEDICARE ==
[2024-04-14] MEDS: [UNRECOGNIZED DRUG - OTHER] IM ONE (10:53)
[2024-04-14 14:34] VITALS: BP 126/44; PULSE 92; RESP 18; TEMP 97.2
== END 2024-04-14 11:00 | disposition home or self-care (01) ==
LOC: J7W 10:29 → JONCCHEMO 10:29
PROVIDERS: ATTEND Internal Medicine Hematology & Oncology
PROC: 3E023GC Introduction of Other Therapeutic Substance into Muscle, Percutaneous Approach (ICD-10-PCS; principal; 2024-04-14)
DX: E83.111 Hemochromatosis due to repeated red blood cell transfusions (principal); K55.21 Angiodysplasia of colon with hemorrhage
CPT/HCPCS: 96372

== ENCOUNTER 2024-04-15 17:30 | Day surgery (SDC) | payer OTHER, MEDICARE ==
[2024-04-15] MEDS: [UNRECOGNIZED DRUG - OTHER] IM ONE (17:50)
[2024-04-15 17:52] VITALS: BP 115/53; PULSE 85; RESP 20; TEMP 97.4
== END 2024-04-15 17:58 | disposition home or self-care (01) ==
LOC: JONCCHEMO 17:30 → J7W 17:30 → JONCCHEMO 17:58
PROVIDERS: ATTEND Internal Medicine Hematology & Oncology
PROC: 3E023GC Introduction of Other Therapeutic Substance into Muscle, Percutaneous Approach (ICD-10-PCS; principal; 2024-04-15)
DX: E83.111 Hemochromatosis due to repeated red blood cell transfusions (principal); K55.21 Angiodysplasia of colon with hemorrhage
CPT/HCPCS: 96372

== ENCOUNTER 2024-04-16 11:00 | Day surgery (SDC) | payer OTHER, MEDICARE ==
[2024-04-16] MEDS: [UNRECOGNIZED DRUG - OTHER] IM ONE (10:55)
[2024-04-16 12:14] VITALS: BP 122/51; PULSE 66; RESP 20; TEMP 97.6
== END 2024-04-16 11:10 | disposition home or self-care (01) ==
LOC: J7W 11:00 → JONCCHEMO 11:00
PROVIDERS: ATTEND Internal Medicine Hematology & Oncology
PROC: 3E013GC Introduction of Other Therapeutic Substance into Subcutaneous Tissue, Percutaneous Approach (ICD-10-PCS; principal; 2024-04-16)
DX: E83.111 Hemochromatosis due to repeated red blood cell transfusions (principal); K55.21 Angiodysplasia of colon with hemorrhage
CPT/HCPCS: 96372

== ENCOUNTER 2024-04-19 07:50 | Day surgery (SDC) | payer OTHER, MEDICARE ==
[2024-04-19] MEDS ORDERED: ACETAMINOPHEN 325 MG TABLET (FP) PO ONE ×2 (11:35→15:00)
[2024-04-19] MEDS: FUROSEMIDE 40 MG/4 ML INJECTABLE VIAL IVPUSH ONE (14:00)
[2024-04-19] MEDS: [UNRECOGNIZED DRUG - OTHER] IM ONE (17:52)
[2024-04-19] MEDS: PORTA CATH FLUSH 10 ML IVPUSH PRN (18:00)
[2024-04-19 18:15] LABS: BASO % 0.1 % (0-2.0); EOS % 0.1 % (0-4.5); HEMATOCRIT 24.6 % (32.4-45.2); HEMOGLOBIN 8.3 GM/dL (10.7-15.3); LYMPH % 34.1 % (8-40); MCH 28.4 pg (25.7-33.7); MCHC 33.9 g/dl (32.0-36.0); MEAN CELL VOLUME 83.8 fl (80-96); MEAN PLT VOLUME 7.8 fl (7.5-11.1); MONO % 6.5 % (3.8-10.2); NEUT % 59.2 % (42.8-82.8); PLATELET COUNT 73 10^3/uL (134-434); RBC 2.94 M/mm3 (3.60-5.2); RDW 13.4 % (11.6-15.6); WHITE BLOOD COUNT 3.2 K/mm3 (4.0-10.0)
[2024-04-19 18:53] VITALS: BP 113/60; PULSE 89; RESP 20; TEMP 97.9
== END 2024-04-19 18:00 | disposition home or self-care (01) ==
LOC: JONCNONCHE 07:50
PROVIDERS: ATTEND Internal Medicine Hematology & Oncology
PROC: 30233N1 Transfusion of Nonautologous Red Blood Cells into Peripheral Vein, Percutaneous Approach (ICD-10-PCS; principal; 2024-04-19)
DX: K55.21 Angiodysplasia of colon with hemorrhage (principal)
CPT/HCPCS: 36415; 36430; 85025; 86850; 86900; 86901; 86922; P9058

== ENCOUNTER 2024-04-21 17:15 | Day surgery (SDC) | payer OTHER, MEDICARE ==
[2024-04-21] MEDS: [UNRECOGNIZED DRUG - OTHER] IM ONE (17:32)
[2024-04-21 17:53] VITALS: BP 112/56; PULSE 62; RESP 20; TEMP 97.8
== END 2024-04-21 17:50 | disposition home or self-care (01) ==
LOC: J7W 17:15 → JONCCHEMO 17:15
PROVIDERS: ATTEND Internal Medicine Hematology & Oncology
PROC: 3E013GC Introduction of Other Therapeutic Substance into Subcutaneous Tissue, Percutaneous Approach (ICD-10-PCS; principal; 2024-04-21)
DX: E83.111 Hemochromatosis due to repeated red blood cell transfusions (principal); K55.21 Angiodysplasia of colon with hemorrhage
CPT/HCPCS: 96372

== ENCOUNTER 2024-04-22 17:30 | Day surgery (SDC) | payer OTHER, MEDICARE ==
[2024-04-22] MEDS: [UNRECOGNIZED DRUG - OTHER] IM ONE (17:35)
[2024-04-22 17:44] VITALS: BP 104/52; PULSE 80; RESP 18; TEMP 97.3
== END 2024-04-22 17:46 | disposition home or self-care (01) ==
LOC: J7W 17:30 → JONCCHEMO 17:30
PROVIDERS: ATTEND Internal Medicine Hematology & Oncology
PROC: 3E013GC Introduction of Other Therapeutic Substance into Subcutaneous Tissue, Percutaneous Approach (ICD-10-PCS; principal; 2024-04-22)
DX: E83.111 Hemochromatosis due to repeated red blood cell transfusions (principal); K55.21 Angiodysplasia of colon with hemorrhage
CPT/HCPCS: 96372

== ENCOUNTER 2024-04-23 17:00 | Day surgery (SDC) | payer OTHER, MEDICARE ==
[2024-04-23] MEDS: [UNRECOGNIZED DRUG - OTHER] IM ONE (17:00)
[2024-04-23 17:48] VITALS: BP 137/46; PULSE 96; RESP 20; TEMP 97.5
== END 2024-04-23 17:20 | disposition home or self-care (01) ==
LOC: JONCCHEMO 17:00 → J7W 17:00 → JONCCHEMO 17:20
PROVIDERS: ATTEND Internal Medicine Hematology & Oncology
PROC: 3E013GC Introduction of Other Therapeutic Substance into Subcutaneous Tissue, Percutaneous Approach (ICD-10-PCS; principal; 2024-04-23)
DX: E83.111 Hemochromatosis due to repeated red blood cell transfusions (principal); K55.21 Angiodysplasia of colon with hemorrhage
CPT/HCPCS: 96372

== ENCOUNTER 2024-04-26 08:27 | Day surgery (SDC) | payer OTHER, MEDICARE ==
[2024-04-26] MEDS: [UNRECOGNIZED DRUG - OTHER] IM ONE (09:06)
[2024-04-26 16:07] VITALS: BP 126/54; PULSE 66; RESP 18; TEMP 97.8
== END 2024-04-26 09:30 | disposition home or self-care (01) ==
LOC: JONCCHEMO 08:27 → J7W 09:06 → JONCCHEMO 09:30
PROVIDERS: ATTEND Internal Medicine Hematology & Oncology
PROC: 3E013GC Introduction of Other Therapeutic Substance into Subcutaneous Tissue, Percutaneous Approach (ICD-10-PCS; principal; 2024-04-26)
DX: E83.111 Hemochromatosis due to repeated red blood cell transfusions (principal); K55.21 Angiodysplasia of colon with hemorrhage
CPT/HCPCS: 96372

== ENCOUNTER 2024-04-27 17:35 | Day surgery (SDC) | payer OTHER, MEDICARE ==
[2024-04-27] MEDS: [UNRECOGNIZED DRUG - OTHER] IM ONE (17:41)
[2024-04-27 17:47] VITALS: BP 123/39; PULSE 97; RESP 20; TEMP 97.7
== END 2024-04-27 17:57 | disposition home or self-care (01) ==
LOC: JONCCHEMO 17:35 → J7W 17:35 → JONCCHEMO 17:57
PROVIDERS: ATTEND Internal Medicine Hematology & Oncology
PROC: 3E013GC Introduction of Other Therapeutic Substance into Subcutaneous Tissue, Percutaneous Approach (ICD-10-PCS; principal; 2024-04-27)
DX: E83.111 Hemochromatosis due to repeated red blood cell transfusions (principal); K55.21 Angiodysplasia of colon with hemorrhage
CPT/HCPCS: 96372

== ENCOUNTER 2024-04-28 11:28 | Day surgery (SDC) | payer OTHER, MEDICARE ==
[2024-04-28] MEDS: [UNRECOGNIZED DRUG - OTHER] IM ONE (11:30)
[2024-04-28 14:15] VITALS: BP 138/51; PULSE 84; RESP 18; TEMP 97.5
== END 2024-04-28 11:45 | disposition home or self-care (01) ==
LOC: JONCCHEMO 11:28 → J7W 11:28 → JONCCHEMO 11:45
PROVIDERS: ATTEND Internal Medicine Hematology & Oncology
PROC: 3E013GC Introduction of Other Therapeutic Substance into Subcutaneous Tissue, Percutaneous Approach (ICD-10-PCS; principal; 2024-04-28)
DX: E83.111 Hemochromatosis due to repeated red blood cell transfusions (principal); K55.21 Angiodysplasia of colon with hemorrhage
CPT/HCPCS: 96372

== ENCOUNTER 2024-04-29 16:40 | Day surgery (SDC) | payer OTHER, MEDICARE ==
[2024-04-29] MEDS: [UNRECOGNIZED DRUG - OTHER] IM ONE (16:46)
[2024-04-29 16:55] VITALS: BP 127/46; PULSE 75; RESP 20; TEMP 97.2
== END 2024-04-29 17:00 | disposition home or self-care (01) ==
LOC: JONCCHEMO 16:40 → J7W 16:40 → JONCCHEMO 17:00
PROVIDERS: ATTEND Internal Medicine Hematology & Oncology
PROC: 3E013GC Introduction of Other Therapeutic Substance into Subcutaneous Tissue, Percutaneous Approach (ICD-10-PCS; principal; 2024-04-29)
DX: E83.111 Hemochromatosis due to repeated red blood cell transfusions (principal); K55.21 Angiodysplasia of colon with hemorrhage
CPT/HCPCS: 96372

== ENCOUNTER 2024-04-30 10:52 | Day surgery (SDC) | payer OTHER, MEDICARE ==
[2024-04-30] MEDS: [UNRECOGNIZED DRUG - OTHER] IM ONE (10:57)
[2024-04-30 11:53] VITALS: BP 122/55; PULSE 87; RESP 20; TEMP 97.7
== END 2024-04-30 11:15 | disposition home or self-care (01) ==
LOC: JONCCHEMO 10:52 → J7W 10:53 → JONCCHEMO 11:15
PROVIDERS: ATTEND Internal Medicine Hematology & Oncology
PROC: 3E013GC Introduction of Other Therapeutic Substance into Subcutaneous Tissue, Percutaneous Approach (ICD-10-PCS; principal; 2024-04-30)
DX: E83.111 Hemochromatosis due to repeated red blood cell transfusions (principal); K55.21 Angiodysplasia of colon with hemorrhage
CPT/HCPCS: 96372

== ENCOUNTER 2024-05-03 11:14 | Day surgery (SDC) | payer OTHER, MEDICARE ==
[2024-05-03] MEDS: [UNRECOGNIZED DRUG - OTHER] IM ONE (11:36)
[2024-05-03 17:15] VITALS: BP 110/55; PULSE 88; RESP 18; TEMP 97.9
== END 2024-05-03 12:00 | disposition home or self-care (01) ==
LOC: JONCCHEMO 11:14
PROVIDERS: ATTEND Internal Medicine Hematology & Oncology
PROC: 3E013GC Introduction of Other Therapeutic Substance into Subcutaneous Tissue, Percutaneous Approach (ICD-10-PCS; principal; 2024-05-03)
DX: E83.111 Hemochromatosis due to repeated red blood cell transfusions (principal); K55.21 Angiodysplasia of colon with hemorrhage
CPT/HCPCS: 96372

== ENCOUNTER 2024-05-04 17:30 | Day surgery (SDC) | payer OTHER, MEDICARE ==
[2024-05-04] MEDS: [UNRECOGNIZED DRUG - OTHER] IM ONE (17:39)
[2024-05-04 17:58] VITALS: BP 125/52; PULSE 94; RESP 20; TEMP 97.7
[2024-05-04 18:18] LABS: BASO % 0.3 % (0-2.0); EOS % 0.2 % (0-4.5); LYMPH % 33.6 % (8-40); MCH 28.3 pg (25.7-33.7); MCHC 33.8 g/dl (32.0-36.0); MEAN CELL VOLUME 83.7 fl (80-96); MEAN PLT VOLUME 7.8 fl (7.5-11.1); NEUT % 58.9 % (42.8-82.8); PLATELET COUNT 73 10^3/uL (134-434); RBC 2.15 M/mm3 (3.60-5.2); RDW 14.3 % (11.6-15.6)
[2024-05-04 18:20] LABS: HEMOGLOBIN 6.1 GM/dL (10.7-15.3)
== END 2024-05-04 18:31 | disposition home or self-care (01) ==
LOC: J7W 17:30 → JONCCHEMO 17:30
PROVIDERS: ATTEND Internal Medicine Hematology & Oncology
PROC: 3E013GC Introduction of Other Therapeutic Substance into Subcutaneous Tissue, Percutaneous Approach (ICD-10-PCS; principal; 2024-05-04)
DX: E83.111 Hemochromatosis due to repeated red blood cell transfusions (principal); K55.21 Angiodysplasia of colon with hemorrhage
CPT/HCPCS: 36415; 36430; 85025; 86850; 86900; 86901; 86922; 96372; P9038; P9058

== ENCOUNTER 2024-05-05 07:49 | Day surgery (SDC) | payer OTHER, MEDICARE ==
[2024-05-05] MEDS: FUROSEMIDE 40 MG/4 ML INJECTABLE VIAL IVPUSH ONE (12:21)
[2024-05-05 15:17] VITALS: BP 97/41; PULSE 85; RESP 20; TEMP 98
[2024-05-05] MEDS: [UNRECOGNIZED DRUG - OTHER] IM ONE (16:40)
[2024-05-05] MEDS: PORTA CATH FLUSH 10 ML IVPUSH PRN (17:25)
[2024-05-05 17:32] LABS: BASO % 0.3 % (0-2.0); EOS % 0.3 % (0-4.5); HEMATOCRIT 24.4 % (32.4-45.2); HEMOGLOBIN 8.4 GM/dL (10.7-15.3); LYMPH % 31.6 % (8-40); MCH 28.4 pg (25.7-33.7); MCHC 34.3 g/dl (32.0-36.0); MEAN CELL VOLUME 82.6 fl (80-96); MEAN PLT VOLUME 7.5 fl (7.5-11.1); MONO % 7.6 % (3.8-10.2); NEUT % 60.2 % (42.8-82.8); PLATELET COUNT 69 10^3/uL (134-434); RBC 2.95 M/mm3 (3.60-5.2); RDW 14.6 % (11.6-15.6); WHITE BLOOD COUNT 3.1 K/mm3 (4.0-10.0)
== END 2024-05-05 17:30 | disposition home or self-care (01) ==
LOC: JONCCHEMO 07:49 → J7W 07:50 → JONCCHEMO 17:30
PROVIDERS: ATTEND Internal Medicine Hematology & Oncology
PROC: 30233N1 Transfusion of Nonautologous Red Blood Cells into Peripheral Vein, Percutaneous Approach (ICD-10-PCS; principal; 2024-05-05)
PROC: 3E013GC Introduction of Other Therapeutic Substance into Subcutaneous Tissue, Percutaneous Approach (ICD-10-PCS; 2024-05-05)
DX: K55.21 Angiodysplasia of colon with hemorrhage (principal); E83.111 Hemochromatosis due to repeated red blood cell transfusions
CPT/HCPCS: 36415; 36430; 85025; 96372; P9038; P9058

== ENCOUNTER 2024-05-06 12:25 | Day surgery (SDC) | payer OTHER, MEDICARE ==
[2024-05-06] MEDS: [UNRECOGNIZED DRUG - OTHER] IM ONE (12:24)
[2024-05-06 12:35] VITALS: BP 136/56; PULSE 79; RESP 20; TEMP 97.3
== END 2024-05-06 12:50 | disposition home or self-care (01) ==
LOC: JONCCHEMO 12:25 → J7W 12:30 → JONCCHEMO 12:50
PROVIDERS: ATTEND Internal Medicine Hematology & Oncology
PROC: 3E013GC Introduction of Other Therapeutic Substance into Subcutaneous Tissue, Percutaneous Approach (ICD-10-PCS; principal; 2024-05-06)
DX: E83.111 Hemochromatosis due to repeated red blood cell transfusions (principal); K55.21 Angiodysplasia of colon with hemorrhage
CPT/HCPCS: 96372

== ENCOUNTER 2024-05-07 11:20 | Day surgery (SDC) | payer OTHER, MEDICARE ==
[2024-05-07] MEDS: [UNRECOGNIZED DRUG - OTHER] IM ONE (11:29)
[2024-05-07 17:48] VITALS: BP 122/41; PULSE 75; RESP 16; TEMP 98.2
== END 2024-05-07 12:00 | disposition home or self-care (01) ==
LOC: JONCCHEMO 11:20
PROVIDERS: ATTEND Internal Medicine Hematology & Oncology
PROC: 3E013GC Introduction of Other Therapeutic Substance into Subcutaneous Tissue, Percutaneous Approach (ICD-10-PCS; principal; 2024-05-07)
DX: E83.111 Hemochromatosis due to repeated red blood cell transfusions (principal); K55.21 Angiodysplasia of colon with hemorrhage
CPT/HCPCS: 96372

== ENCOUNTER 2024-05-17 11:44 | Day surgery (SDC) | payer OTHER, MEDICARE ==
[2024-05-17] MEDS: [UNRECOGNIZED DRUG - OTHER] IM ONE (11:46)
[2024-05-17 18:10] VITALS: BP 124/41; PULSE 99; RESP 18; TEMP 97.5
== END 2024-05-17 11:55 | disposition home or self-care (01) ==
LOC: JONCCHEMO 11:44 → J7W 11:45 → JONCCHEMO 11:55
PROVIDERS: ATTEND Internal Medicine Hematology & Oncology
PROC: 3E013GC Introduction of Other Therapeutic Substance into Subcutaneous Tissue, Percutaneous Approach (ICD-10-PCS; principal; 2024-05-17)
DX: E83.111 Hemochromatosis due to repeated red blood cell transfusions (principal); K55.21 Angiodysplasia of colon with hemorrhage
CPT/HCPCS: 96372

== ENCOUNTER 2024-05-18 10:35 | Day surgery (SDC) | payer OTHER, MEDICARE ==
[2024-05-18] MEDS: [UNRECOGNIZED DRUG - OTHER] IM ONE (10:47)
[2024-05-18 16:09] VITALS: BP 124/41; PULSE 99; TEMP 97.5
== END 2024-05-18 11:15 | disposition home or self-care (01) ==
LOC: JONCCHEMO 10:35 → J7W 11:02 → JONCCHEMO 11:15
PROVIDERS: ATTEND Internal Medicine Hematology & Oncology
PROC: 3E013GC Introduction of Other Therapeutic Substance into Subcutaneous Tissue, Percutaneous Approach (ICD-10-PCS; principal; 2024-05-18)
DX: E83.111 Hemochromatosis due to repeated red blood cell transfusions (principal); K55.21 Angiodysplasia of colon with hemorrhage
CPT/HCPCS: 96372

== ENCOUNTER 2024-05-19 15:22 | Day surgery (SDC) | payer OTHER, MEDICARE ==
[2024-05-19] MEDS: [UNRECOGNIZED DRUG - OTHER] IM ONE (16:48)
[2024-05-19 19:27] VITALS: BP 128/71; PULSE 100; RESP 20; TEMP 97.5
== END 2024-05-19 19:34 | disposition home or self-care (01) ==
LOC: JONCNONCHE 15:22 → J7W 15:40 → JONCNONCHE 19:34
PROVIDERS: ATTEND Internal Medicine Hematology & Oncology
PROC: 3E013GC Introduction of Other Therapeutic Substance into Subcutaneous Tissue, Percutaneous Approach (ICD-10-PCS; principal; 2024-05-19)
DX: E83.111 Hemochromatosis due to repeated red blood cell transfusions (principal); K55.21 Angiodysplasia of colon with hemorrhage
CPT/HCPCS: 96372

== ENCOUNTER 2024-05-21 11:07 | Day surgery (SDC) | payer OTHER, MEDICARE ==
[2024-05-21] MEDS: [UNRECOGNIZED DRUG - OTHER] IM ONE (10:44)
[2024-05-21 15:45] VITALS: BP 137/56; PULSE 113; RESP 20; TEMP 98.7
== END 2024-05-21 12:00 | disposition home or self-care (01) ==
LOC: JONCNONCHE 11:07 → J7W 11:09 → JONCNONCHE 12:00
PROVIDERS: ATTEND Internal Medicine Hematology & Oncology
PROC: 3E013GC Introduction of Other Therapeutic Substance into Subcutaneous Tissue, Percutaneous Approach (ICD-10-PCS; principal; 2024-05-21)
DX: E83.111 Hemochromatosis due to repeated red blood cell transfusions (principal); K55.21 Angiodysplasia of colon with hemorrhage
CPT/HCPCS: 96372

== ENCOUNTER 2024-05-25 17:30 | Day surgery (SDC) | payer OTHER, MEDICARE ==
[2024-05-25] MEDS: [UNRECOGNIZED DRUG - OTHER] IM ONE (17:37)
[2024-05-25 18:38] VITALS: BP 143/71; PULSE 106; RESP 18; TEMP 97.4
== END 2024-05-25 18:39 | disposition home or self-care (01) ==
LOC: JONCNONCHE 17:30 → J7W 17:39 → JONCNONCHE 18:39
PROVIDERS: ATTEND Internal Medicine Hematology & Oncology
PROC: 3E023GC Introduction of Other Therapeutic Substance into Muscle, Percutaneous Approach (ICD-10-PCS; principal; 2024-05-25)
DX: E83.111 Hemochromatosis due to repeated red blood cell transfusions (principal); C90.00 Multiple myeloma not having achieved remission
CPT/HCPCS: 96372

== ENCOUNTER 2024-05-26 05:33 | Inpatient (IN) | payer OTHER, MEDICARE ==
[2024-05-26 07:20] LABS: BASO % 0.5 % (0-2.0); EOS % 0.1 % (0-4.5); HEMATOCRIT 22.7 % (32.4-45.2); HEMOGLOBIN 7.7 GM/dL (10.7-15.3); LYMPH % 13.8 % (8-40); MCH 28.5 pg (25.7-33.7); MCHC 34.2 g/dl (32.0-36.0); MEAN CELL VOLUME 83.3 fl (80-96); MONO % 5.3 % (3.8-10.2); NEUT % 80.3 % (42.8-82.8); PLATELET COUNT 84 10^3/uL (134-434); RBC 2.72 M/mm3 (3.60-5.2); RDW 14.1 % (11.6-15.6); WHITE BLOOD COUNT 4.4 K/mm3 (4.0-10.0)
[2024-05-26 07:25] LABS: INR 1.14 (0.83-1.09); PROTHROMBIN TIME (PATIENT) 12.8 SEC (9.7-13.0)
[2024-05-26 07:27] LABS: ACTIVATED PTT 28.2 SECONDS (25.2-36.5)
[2024-05-26 07:39] LABS: POTASSIUM 4.3 mmol/L (3.5-5.1)
[2024-05-26 07:40] LABS: CALCIUM 7.9 mg/dL (8.5-10.1)
[2024-05-26 07:41] LABS: ALBUMIN 2.5 g/dl (3.4-5.0); BLOOD UREA NITROGEN 24.8 mg/dL (7-18); MAGNESIUM 2.3 mg/dL (1.8-2.4)
[2024-05-26 07:44] LABS: CREATININE 1.4 mg/dL (0.55-1.3)
[2024-05-26 07:45] LABS: BILIRUBIN,TOTAL 0.5 mg/dL (0.2-1)
[2024-05-26 07:46] LABS: TOT PROT 6.3 g/dl (6.4-8.2)
[2024-05-26] MEDS ORDERED: ACETAMINOPHEN INJECTION 100 ML ONE (07:55)
[2024-05-26] MEDS ORDERED: FAMOTIDINE 20 MG/50 ML IVPB 20 MG/50 ML MG IVPB ONE (08:11)
[2024-05-26] MEDS: FAMOTIDINE 20 MG/50 ML IVPB 20 MG/50 ML MG IVPB ONE (08:36)
[2024-05-26] MEDS: SODIUM CHLORIDE 1,000 ML IV STA (08:36)
[2024-05-26] MEDS: ACETAMINOPHEN 1000 MG/100 ML BAG IVPB ONE ×2 (08:37→08:38)
[2024-05-26] MEDS: ACETAMINOPHEN 325 MG TABLET (FP) PO ONE (08:38)
[2024-05-26 09:10] LABS: URINE APPEARANCE Clear; URINE BILIRUBIN Negative (NEGATIVE); URINE COLOR Yellow; URINE GLUCOSE (UA) Negative (NEGATIVE); URINE KETONE Negative (NEGATIVE); URINE LEUK ESTERASE Trace (NEGATIVE); URINE NITRITE Negative (NEGATIVE); URINE PROTEIN Trace (NEGATIVE); URINE UROBILINOGEN 0.2 mg/dL (0.2-1.0)
[2024-05-26 09:17] LABS: EPI CELLS 9 /uL (0-25.1); HYALINE CASTS 1 /uL (0-3.1); URINE BACTERIA 146 /uL (0-1359); URINE RBC 10 /uL (0-23.9); URINE WBC 37 /uL (0-25.8)
[2024-05-26] MEDS ORDERED: IMIPENEM/CILASTATIN SODIUM 500 MG in SODIUM CHLORIDE 100 ML IV ONE (09:20)
[2024-05-26 11:14] VITALS: BMI 24.0
[2024-05-26] MEDS: ACETAMINOPHEN 1000 MG/100 ML BAG IVPB PRN (14:15)
[2024-05-26] MEDS: IMIPENEM/CILASTATIN SODIUM 500 MG in SODIUM CHLORIDE 100 ML IVPB ONE (15:12)
[2024-05-26] MEDS: LACTATED RINGERS SOLUTION 1,000 ML/1,000 ML INFUS.BAG IV SCH (15:17)
[2024-05-26] MEDS: MIRTAZAPINE 15 MG TABLET (FP) PO SCH (21:17)
[2024-05-26] MEDS: FLUCONAZOLE 150 MG TABLET PO ONE (21:17)
[2024-05-26] MEDS: ALLOPURINOL 100 MG TABLET (FP) PO SCH (21:18)
[2024-05-27] MEDS: LEVOTHYROXINE NA 100 MCG TABLET (FP) PO SCH (06:20)
[2024-05-27 08:26] LABS: BASO % 0.3 % (0-2.0); EOS % 0.2 % (0-4.5); LYMPH % 14.9 % (8-40); MCH 27.6 pg (25.7-33.7); MCHC 32.8 g/dl (32.0-36.0); MEAN PLT VOLUME 7.9 fl (7.5-11.1); MONO % 6.9 % (3.8-10.2); NEUT % 77.7 % (42.8-82.8); PLATELET COUNT 77 10^3/uL (134-434); WHITE BLOOD COUNT 3.3 K/mm3 (4.0-10.0)
[2024-05-27 08:31] LABS: HEMOGLOBIN 6.9 GM/dL (10.7-15.3)
[2024-05-27 08:37] LABS: CALCIUM 7.6 mg/dL (8.5-10.1)
[2024-05-27 08:38] LABS: BLOOD UREA NITROGEN 19.9 mg/dL (7-18)
[2024-05-27 08:41] LABS: BILIRUBIN,TOTAL 0.5 mg/dL (0.2-1); CREATININE 1.1 mg/dL (0.55-1.3); PHOSPHOROUS 3.9 mg/dL (2.5-4.9)
[2024-05-27 08:42] LABS: TOT PROT 5.2 g/dl (6.4-8.2)
[2024-05-27] MEDS: traMADol HCL 50 MG TABLET PO PRN (08:52)
[2024-05-27] MEDS: PRAMIPEXOLE DIHYDROCHLORIDE 0.25 MG TABLET PO SCH (21:57)
[2024-05-28 09:04] LABS: HEMATOCRIT 23.9 % (32.4-45.2); RBC 2.86 M/mm3 (3.60-5.2); WHITE BLOOD COUNT 3.4 K/mm3 (4.0-10.0)
[2024-05-28 09:05] LABS: BASO % 0.2 % (0-2.0); EOS % 0.2 % (0-4.5); LYMPH % 20.5 % (8-40); MCHC 33.5 g/dl (32.0-36.0); MEAN CELL VOLUME 83.6 fl (80-96); MEAN PLT VOLUME 7.7 fl (7.5-11.1); MONO % 7.3 % (3.8-10.2); NEUT % 71.8 % (42.8-82.8); PLATELET COUNT 79 10^3/uL (134-434); RDW 14.2 % (11.6-15.6)
[2024-05-28 09:28] LABS: ALBUMIN 2.1 g/dl (3.4-5.0); CALCIUM 7.3 mg/dL (8.5-10.1)
[2024-05-28 09:32] LABS: CREATININE 0.9 mg/dL (0.55-1.3)
[2024-05-28 09:33] LABS: BILIRUBIN,TOTAL 0.7 mg/dL (0.2-1); TOT PROT 5.2 g/dl (6.4-8.2)
[2024-05-28 10:04] LABS: BLOOD UREA NITROGEN 13.6 mg/dL (7-18)
[2024-05-28] MEDS: LORazepam 2 MG/ML SDV VIAL IVPUSH PRN (11:30)
[2024-05-29 07:34] LABS: HEMATOCRIT 24.1 % (32.4-45.2); HEMOGLOBIN 8.1 GM/dL (10.7-15.3); MCHC 33.4 g/dl (32.0-36.0); MEAN CELL VOLUME 83.8 fl (80-96); MEAN PLT VOLUME 7.7 fl (7.5-11.1); PLATELET COUNT 76 10^3/uL (134-434); RBC 2.88 M/mm3 (3.60-5.2); RDW 14.4 % (11.6-15.6); WHITE BLOOD COUNT 3.1 K/mm3 (4.0-10.0)
[2024-05-29 07:39] LABS: POTASSIUM 4.2 mmol/L (3.5-5.1)
[2024-05-29 07:43] LABS: ALBUMIN 2.1 g/dl (3.4-5.0); BLOOD UREA NITROGEN 14.2 mg/dL (7-18); CALCIUM 7.6 mg/dL (8.5-10.1)
[2024-05-29 07:46] LABS: CREATININE 0.9 mg/dL (0.55-1.3)
[2024-05-29 07:48] LABS: BILIRUBIN,TOTAL 0.3 mg/dL (0.2-1); TOT PROT 5.2 g/dl (6.4-8.2)
[2024-05-29 10:28] LABS: ANISOCYTOSIS 0; HELMET CELLS 0; HOWELL-JOLLY BODIES 0; MACROCYTOSIS 0; OVALOCYTE 0; ROULEAU 0; SICKELED CELLS 0; TARGET CELLS 0; TEAR DROP CELLS 0; TOXIC GRANULATION 0
[2024-05-31 13:36] LABS: BASO % 0.4 % (0-2.0); EOS % 0.1 % (0-4.5); HEMATOCRIT 25.1 % (32.4-45.2); HEMOGLOBIN 8.3 GM/dL (10.7-15.3); LYMPH % 23.5 % (8-40); MCH 27.8 pg (25.7-33.7); MEAN CELL VOLUME 84.1 fl (80-96); MEAN PLT VOLUME 7.7 fl (7.5-11.1); MONO % 5.6 % (3.8-10.2); NEUT % 70.4 % (42.8-82.8); RBC 2.98 M/mm3 (3.60-5.2); WHITE BLOOD COUNT 3.2 K/mm3 (4.0-10.0)
[2024-05-31 14:09] LABS: PLATELET COUNT 80 10^3/uL (134-434)
[2024-06-01 09:45] LABS: BASO % 0.2 % (0-2.0); EOS % 0.2 % (0-4.5); HEMATOCRIT 24.5 % (32.4-45.2); HEMOGLOBIN 8.3 GM/dL (10.7-15.3); LYMPH % 23.8 % (8-40); MCH 28.1 pg (25.7-33.7); MEAN CELL VOLUME 82.7 fl (80-96); MEAN PLT VOLUME 7.6 fl (7.5-11.1); NEUT % 70.8 % (42.8-82.8); PLATELET COUNT 85 10^3/uL (134-434); RBC 2.97 M/mm3 (3.60-5.2); RDW 14.1 % (11.6-15.6); WHITE BLOOD COUNT 2.6 K/mm3 (4.0-10.0)
[2024-06-01 10:02] LABS: POTASSIUM 3.9 mmol/L (3.5-5.1)
[2024-06-01 10:12] LABS: CALCIUM 7.6 mg/dL (8.5-10.1)
[2024-06-01 10:13] LABS: BLOOD UREA NITROGEN 13.5 mg/dL (7-18)
[2024-06-01 10:15] LABS: ALBUMIN 2.4 g/dl (3.4-5.0)
[2024-06-01 10:16] LABS: CREATININE 0.9 mg/dL (0.55-1.3)
[2024-06-01 10:17] LABS: BILIRUBIN,TOTAL 0.5 mg/dL (0.2-1)
[2024-06-01 12:17] VITALS: TEMP 98.4
[2024-06-01 15:32] VITALS: BP 107/52; PULSE 91; RESP 17
== END 2024-06-01 18:12 | disposition home or self-care (01) | DRG 812 ==
LOC: JER 05:33 → JERBED 09:56 → J7W 10:58 → OBSVTOIN 15:18
PROVIDERS: ADMIT Internal Medicine; ATTEND Internal Medicine
PROC: 30233N1 Transfusion of Nonautologous Red Blood Cells into Peripheral Vein, Percutaneous Approach (ICD-10-PCS; principal; 2024-05-27)
DX: D64.9 Anemia, unspecified (principal); D47.2 Monoclonal gammopathy; E78.5 Hyperlipidemia, unspecified; E03.9 Hypothyroidism, unspecified; G62.9 Polyneuropathy, unspecified; I12.9 Hypertensive chronic kidney disease with stage 1 through stage 4 chronic kidney disease, or unspecified chronic kidney disease; N18.9 Chronic kidney disease, unspecified; G25.81 Restless legs syndrome; H40.9 Unspecified glaucoma; F41.9 Anxiety disorder, unspecified; I25.10 Atherosclerotic heart disease of native coronary artery without angina pectoris; K57.90 Diverticulosis of intestine, part unspecified, without perforation or abscess without bleeding; E83.51 Hypocalcemia; R19.7 Diarrhea, unspecified; R79.89 Other specified abnormal findings of blood chemistry; M54.12 Radiculopathy, cervical region; M54.16 Radiculopathy, lumbar region
CPT/HCPCS: 0241U-QW; 36415; 36430; 72141-TC; 72148-TC; 74176-TC; 74183-TC; 80053; 81003; 82607; 82728; 82962; 83540; 83550; 83690; 83735; 84100; 84439; 84443; 84466; 84484; 85025; 85610; 85730; 86850; 86900; 86901; 86922; 87045; 87046; 87086; 87186; 87205; 87209; 87324; 87449; 93005; 93010; 93975; 96372; 99285-25; G0378; J0131; P9058

== ENCOUNTER 2024-06-07 10:45 | Day surgery (SDC) | payer OTHER, MEDICARE ==
[2024-06-07] MEDS: [UNRECOGNIZED DRUG - OTHER] IM ONE (10:58)
[2024-06-07 13:15] VITALS: BP 110/48; PULSE 96; RESP 18; TEMP 98.1
== END 2024-06-07 11:10 | disposition home or self-care (01) ==
LOC: JONCNONCHE 10:45 → J7W 10:51 → JONCNONCHE 11:10
PROVIDERS: ATTEND Internal Medicine Hematology & Oncology
PROC: 3E013GC Introduction of Other Therapeutic Substance into Subcutaneous Tissue, Percutaneous Approach (ICD-10-PCS; principal; 2024-06-07)
DX: E83.111 Hemochromatosis due to repeated red blood cell transfusions (principal); K55.21 Angiodysplasia of colon with hemorrhage
CPT/HCPCS: 96372

== ENCOUNTER 2024-06-08 17:35 | Day surgery (SDC) | payer OTHER, MEDICARE ==
[2024-06-08] MEDS: [UNRECOGNIZED DRUG - OTHER] IM ONE (17:41)
[2024-06-08 18:00] VITALS: BP 105/45; PULSE 96; RESP 18; TEMP 97.9
== END 2024-06-08 17:50 | disposition home or self-care (01) ==
LOC: JONCNONCHE 17:35 → J7W 17:47 → JONCNONCHE 17:50
PROVIDERS: ATTEND Internal Medicine Hematology & Oncology
PROC: 3E013GC Introduction of Other Therapeutic Substance into Subcutaneous Tissue, Percutaneous Approach (ICD-10-PCS; principal; 2024-06-08)
DX: E83.111 Hemochromatosis due to repeated red blood cell transfusions (principal); K55.21 Angiodysplasia of colon with hemorrhage
CPT/HCPCS: 96372

== ENCOUNTER 2024-06-09 08:24 | Day surgery (SDC) | payer OTHER, MEDICARE ==
[2024-06-09 09:00] LABS: CHLORIDE 103 mmol/L (98-107); POTASSIUM 4.9 mmol/L (3.5-5.1); SODIUM 134 mmol/L (136-145)
[2024-06-09 09:02] LABS: ALBUMIN 2.6 g/dl (3.4-5.0); ANION GAP 7 mmol/L (4-13); BLOOD UREA NITROGEN 20.7 mg/dL (7-18); CALCIUM 8.1 mg/dL (8.5-10.1); CO2 25 mmol/L (21-32)
[2024-06-09 09:03] LABS: GLUCOSE,RANDOM 119 mg/dL (74-106)
[2024-06-09 09:05] LABS: SGPT/ALT 121 U/L (13-61)
[2024-06-09 09:06] LABS: CREATININE 1.4 mg/dL (0.55-1.3); SGOT/AST 146 U/L (15-37)
[2024-06-09 09:07] LABS: BILIRUBIN,TOTAL 0.4 mg/dL (0.2-1); TOT PROT 6.2 g/dl (6.4-8.2)
[2024-06-09 09:10] LABS: ALK PHOS 538 U/L (45-117)
[2024-06-09 09:16] LABS: BASO % 0.2 % (0-2.0); EOS % 0.2 % (0-4.5); HEMATOCRIT 20.1 % (32.4-45.2); MCH 27.9 pg (25.7-33.7); MCHC 33.4 g/dl (32.0-36.0); MEAN CELL VOLUME 83.6 fl (80-96); MEAN PLT VOLUME 7.6 fl (7.5-11.1); MONO % 9.1 % (3.8-10.2); NEUT % 72.5 % (42.8-82.8); PLATELET COUNT 112 10^3/uL (134-434); RDW 14.1 % (11.6-15.6); WHITE BLOOD COUNT 3.3 K/mm3 (4.0-10.0)
[2024-06-09 09:29] LABS: HEMOGLOBIN 6.7 GM/dL (10.7-15.3)
[2024-06-09] MEDS: FUROSEMIDE 40 MG/4 ML INJECTABLE VIAL IVPUSH PRN (13:14)
[2024-06-09 17:02] VITALS: BP 112/45; PULSE 110; RESP 76; TEMP 98.7
[2024-06-09] MEDS: [UNRECOGNIZED DRUG - OTHER] IM ONE (17:22)
[2024-06-09] MEDS: PORTA CATH FLUSH 10 ML IVPUSH PRN (17:23)
== END 2024-06-09 18:30 | disposition home or self-care (01) ==
LOC: J7W 08:24 → JONCBLOOD 08:24
PROVIDERS: ATTEND Internal Medicine Hematology & Oncology
PROC: 30233N1 Transfusion of Nonautologous Red Blood Cells into Peripheral Vein, Percutaneous Approach (ICD-10-PCS; principal; 2024-06-09)
DX: K55.21 Angiodysplasia of colon with hemorrhage (principal); E83.111 Hemochromatosis due to repeated red blood cell transfusions
CPT/HCPCS: 36415; 36430; 80053; 85025; 86850; 86900; 86901; 86922; 96372; P9058

== ENCOUNTER 2024-06-10 11:15 | Day surgery (SDC) | payer OTHER, MEDICARE ==
[2024-06-10] MEDS: [UNRECOGNIZED DRUG - OTHER] IM ONE (11:39)
[2024-06-10 11:59] LABS: HEMATOCRIT 28.2 % (32.4-45.2); HEMOGLOBIN 9.5 GM/dL (10.7-15.3); MCH 28.7 pg (25.7-33.7); MCHC 33.9 g/dl (32.0-36.0); MEAN CELL VOLUME 84.9 fl (80-96); MEAN PLT VOLUME 7.5 fl (7.5-11.1); PLATELET COUNT 99 10^3/uL (134-434); RBC 3.32 M/mm3 (3.60-5.2); WHITE BLOOD COUNT 3.6 K/mm3 (4.0-10.0)
[2024-06-10] MEDS: PORTA CATH FLUSH 10 ML IVPUSH PRN (12:00)
[2024-06-10 17:44] VITALS: BP 102/45; PULSE 113; RESP 20; TEMP 99.3
== END 2024-06-10 12:00 | disposition home or self-care (01) ==
LOC: JONCCHEMO 11:15 → J7W 11:17 → JONCCHEMO 12:00
PROVIDERS: ATTEND Internal Medicine Hematology & Oncology
PROC: 3E013GC Introduction of Other Therapeutic Substance into Subcutaneous Tissue, Percutaneous Approach (ICD-10-PCS; principal; 2024-06-10)
DX: E83.111 Hemochromatosis due to repeated red blood cell transfusions (principal); K55.21 Angiodysplasia of colon with hemorrhage
CPT/HCPCS: 36415; 85027; 96372

== ENCOUNTER 2024-06-14 12:07 | Day surgery (SDC) | payer OTHER, MEDICARE ==
[2024-06-14] MEDS: [UNRECOGNIZED DRUG - OTHER] IM ONE (12:11)
[2024-06-14 16:12] VITALS: BP 121/53; PULSE 92; RESP 22; TEMP 97.8
== END 2024-06-14 12:15 | disposition home or self-care (01) ==
LOC: JONCNONCHE 12:07
PROVIDERS: ATTEND Internal Medicine Hematology & Oncology
PROC: 3E013GC Introduction of Other Therapeutic Substance into Subcutaneous Tissue, Percutaneous Approach (ICD-10-PCS; principal; 2024-06-14)
DX: E83.111 Hemochromatosis due to repeated red blood cell transfusions (principal); K55.21 Angiodysplasia of colon with hemorrhage
CPT/HCPCS: 96372

== ENCOUNTER 2024-06-15 15:42 | Day surgery (SDC) | payer OTHER, MEDICARE ==
[2024-06-15] MEDS: [UNRECOGNIZED DRUG - OTHER] IM ONE (15:35)
[2024-06-15 17:40] VITALS: BP 105/58; PULSE 102; RESP 20; TEMP 97.2
== END 2024-06-15 16:00 | disposition home or self-care (01) ==
LOC: J7W 15:42 → JONCCHEMO 15:42
PROVIDERS: ATTEND Internal Medicine Hematology & Oncology
PROC: 3E013GC Introduction of Other Therapeutic Substance into Subcutaneous Tissue, Percutaneous Approach (ICD-10-PCS; principal; 2024-06-15)
DX: E83.111 Hemochromatosis due to repeated red blood cell transfusions (principal); K55.21 Angiodysplasia of colon with hemorrhage
CPT/HCPCS: 96372

== ENCOUNTER 2024-06-17 12:55 | Day surgery (SDC) | payer OTHER, MEDICARE ==
[2024-06-17] MEDS: [UNRECOGNIZED DRUG - OTHER] IM ONE (13:07)
[2024-06-17 18:43] VITALS: BP 101/47; PULSE 100; RESP 20; TEMP 97.2
== END 2024-06-17 13:30 | disposition home or self-care (01) ==
LOC: JONCCHEMO 12:55 → J7W 12:55 → JONCCHEMO 13:30
PROVIDERS: ATTEND Internal Medicine Hematology & Oncology
PROC: 3E013GC Introduction of Other Therapeutic Substance into Subcutaneous Tissue, Percutaneous Approach (ICD-10-PCS; principal; 2024-06-17)
DX: E83.111 Hemochromatosis due to repeated red blood cell transfusions (principal); K55.21 Angiodysplasia of colon with hemorrhage
CPT/HCPCS: 96372

== ENCOUNTER 2024-06-18 11:40 | Day surgery (SDC) | payer OTHER, MEDICARE ==
[2024-06-18] MEDS: [UNRECOGNIZED DRUG - OTHER] IM ONE (11:42)
[2024-06-18 15:23] VITALS: BP 106/43; PULSE 97; RESP 18; TEMP 97.2
== END 2024-06-18 15:41 | disposition home or self-care (01) ==
LOC: JONCCHEMO 11:40 → J7W 11:40 → JONCCHEMO 15:41
PROVIDERS: ATTEND Internal Medicine Hematology & Oncology
PROC: 3E013GC Introduction of Other Therapeutic Substance into Subcutaneous Tissue, Percutaneous Approach (ICD-10-PCS; principal; 2024-06-18)
DX: E83.111 Hemochromatosis due to repeated red blood cell transfusions (principal); K55.21 Angiodysplasia of colon with hemorrhage
CPT/HCPCS: 96372

== ENCOUNTER 2024-06-18 15:14 | Inpatient (IN) | payer OTHER, MEDICARE ==
[2024-06-18 17:03] LABS: BASO % 0.2 % (0-2.0); EOS % 0.1 % (0-4.5); HEMATOCRIT 23.6 % (32.4-45.2); HEMOGLOBIN 7.8 GM/dL (10.7-15.3); LYMPH % 23.3 % (8-40); MCH 28.5 pg (25.7-33.7); MCHC 33.1 g/dl (32.0-36.0); MEAN CELL VOLUME 85.9 fl (80-96); MEAN PLT VOLUME 7.8 fl (7.5-11.1); MONO % 5.1 % (3.8-10.2); NEUT % 71.3 % (42.8-82.8); PLATELET COUNT 102 10^3/uL (134-434); RBC 2.74 M/mm3 (3.60-5.2); RDW 15.3 % (11.6-15.6); WHITE BLOOD COUNT 5.1 K/mm3 (4.0-10.0)
[2024-06-18 17:09] LABS: INR 1.08 (0.83-1.09); PROTHROMBIN TIME (PATIENT) 12.2 SEC (9.7-13.0)
[2024-06-18 17:12] LABS: ACTIVATED PTT 33.3 SECONDS (25.2-36.5)
[2024-06-18 17:26] LABS: POTASSIUM 3.9 mmol/L (3.5-5.1)
[2024-06-18 17:28] LABS: CALCIUM 8.6 mg/dL (8.5-10.1)
[2024-06-18 17:29] LABS: ALBUMIN 2.7 g/dl (3.4-5.0); MAGNESIUM 2.2 mg/dL (1.8-2.4)
[2024-06-18 17:32] LABS: CREATININE 1.4 mg/dL (0.55-1.3)
[2024-06-18 17:33] LABS: BILIRUBIN,TOTAL 0.5 mg/dL (0.2-1); TOT PROT 6.6 g/dl (6.4-8.2)
[2024-06-18] MEDS ORDERED: ACETAMINOPHEN INJECTION 100 ML ONE (18:08)
[2024-06-18] MEDS ORDERED: CEFEPIME HCL/D5W 2 GM/50 ML BAG IVPB ONE (18:08)
[2024-06-18] MEDS ORDERED: VANCOMYCIN 1 GM PREMIX (F) 1 GM/200 ML BAG ONE ×2 (18:08→20:32)
[2024-06-18] MEDS: CEFEPIME HCL 2 GM VIAL (RESTRICTED TO ID) IVPB ONE (18:40)
[2024-06-18] MEDS: ACETAMINOPHEN 1000 MG/100 ML BAG IVPB ONE (18:40)
[2024-06-18] MEDS: VANCOMYCIN 1,000 MG in DEXTROSE 5%-WATER - 250 ML IVPB ONE (21:08)
[2024-06-19 07:02] LABS: BASO % 0.2 % (0-2.0); EOS % 0.1 % (0-4.5); HEMATOCRIT 21.4 % (32.4-45.2); HEMOGLOBIN 7.1 GM/dL (10.7-15.3); LYMPH % 14.6 % (8-40); MCH 28.8 pg (25.7-33.7); MCHC 33.1 g/dl (32.0-36.0); MEAN CELL VOLUME 87.1 fl (80-96); MONO % 5.2 % (3.8-10.2); NEUT % 79.9 % (42.8-82.8); PLATELET COUNT 88 10^3/uL (134-434); RBC 2.45 M/mm3 (3.60-5.2); RDW 14.9 % (11.6-15.6); WHITE BLOOD COUNT 3.8 K/mm3 (4.0-10.0)
[2024-06-19 07:15] LABS: POTASSIUM 3.9 mmol/L (3.5-5.1)
[2024-06-19 07:19] LABS: CALCIUM 8.4 mg/dL (8.5-10.1)
[2024-06-19 07:20] LABS: BLOOD UREA NITROGEN 24.2 mg/dL (7-18)
[2024-06-19 07:23] LABS: CREATININE 1.3 mg/dL (0.55-1.3)
[2024-06-19] MEDS ORDERED: ACETAMINOPHEN 325 MG TABLET (FP) ONE ×3 (08:23→18:30)
[2024-06-19] MEDS: ACETAMINOPHEN 325 MG TABLET (FP) PO PRN (08:33)
[2024-06-19] MEDS: LEVOTHYROXINE NA 100 MCG TABLET (FP) PO SCH (09:11)
[2024-06-19] MEDS: PRAMIPEXOLE DIHYDROCHLORIDE 0.25 MG TABLET PO SCH (09:11)
[2024-06-19] MEDS: CALCITRIOL 0.25 MCG CAPSULE (FP) PO SCH (09:58)
[2024-06-19] MEDS: ALLOPURINOL 100 MG TABLET (FP) PO SCH (09:58)
[2024-06-19] MEDS ORDERED: VANCOMYCIN 1 GM PREMIX (F) 1 GM/200 ML BAG ONE (21:45)
[2024-06-19] MEDS: VANCOMYCIN 1 GM PREMIX (F) 1 GM/200 ML BAG IVPB SCH (21:56)
[2024-06-19] MEDS: MIRTAZAPINE 15 MG TABLET (FP) PO SCH (21:56)
[2024-06-20] MEDS ORDERED: ACETAMINOPHEN 325 MG TABLET (FP) ONE ×3 (01:25→20:00)
[2024-06-20] MEDS: MORPHINE SULFATE 2 MG/ML SYRINGE IVPUSH ONE (02:39)
[2024-06-20] MEDS: ONDANSETRON 4 MG/2 ML VIAL IVPUSH ONE (02:39)
[2024-06-20] MEDS ORDERED: LEVOTHYROXINE NA 100 MCG TABLET (FP) ONE (07:52)
[2024-06-20] MEDS ORDERED: MORPHINE SULFATE 2 MG/ML SYRINGE ONE ×2 (08:13→14:32)
[2024-06-20] MEDS: MORPHINE SULFATE 2 MG/ML SYRINGE IVPUSH PRN (08:20)
[2024-06-20 08:40] LABS: HEMATOCRIT 19.1 % (32.4-45.2); MCH 28.7 pg (25.7-33.7); MCHC 33.8 g/dl (32.0-36.0); MEAN CELL VOLUME 85.1 fl (80-96); MEAN PLT VOLUME 7.9 fl (7.5-11.1); PLATELET COUNT 84 10^3/uL (134-434); RBC 2.24 M/mm3 (3.60-5.2); RDW 14.9 % (11.6-15.6); WHITE BLOOD COUNT 3.6 K/mm3 (4.0-10.0)
[2024-06-20 08:49] LABS: HEMOGLOBIN 6.4 GM/dL (10.7-15.3)
[2024-06-20 08:53] LABS: BLOOD UREA NITROGEN 18.5 mg/dL (7-18); CALCIUM 8.3 mg/dL (8.5-10.1)
[2024-06-20 08:55] LABS: ALBUMIN 2.1 g/dl (3.4-5.0)
[2024-06-20 08:58] LABS: BILIRUBIN,TOTAL 0.5 mg/dL (0.2-1); TOT PROT 5.4 g/dl (6.4-8.2)
[2024-06-20] MEDS: VANCOMYCIN 1,000 MG in DEXTROSE 5%-WATER - 250 ML IVPB SCH (19:49)
[2024-06-20] MEDS ORDERED: PIPERACILLIN/TAZOB 3.375 GM 3.375 GM/50 ML BAG IVPB ONE (19:59)
[2024-06-20] MEDS ORDERED: VANCOMYCIN 1 GM PREMIX (F) 1 GM/200 ML BAG ONE (20:00)
[2024-06-20] MEDS: PIPERACILLIN/TAZOB 3.375 GM 50 ML IVPB SCH ×2 (20:08→20:12)
[2024-06-20] MEDS: VANCOMYCIN/WATER FOR INJ (PEG) 1,000 MG/200 ML BAG IVPB SCH ×2 (20:12→20:46)
[2024-06-21 00:26] VITALS: BMI 25.3
[2024-06-21 10:09] LABS: HEMOGLOBIN 7.8 GM/dL (10.7-15.3); MCH 28.9 pg (25.7-33.7); MCHC 34.1 g/dl (32.0-36.0); MEAN CELL VOLUME 84.7 fl (80-96); MEAN PLT VOLUME 7.6 fl (7.5-11.1); PLATELET COUNT 86 10^3/uL (134-434); RBC 2.72 M/mm3 (3.60-5.2); RDW 15.2 % (11.6-15.6); WHITE BLOOD COUNT 3.5 K/mm3 (4.0-10.0)
[2024-06-21 10:33] LABS: POTASSIUM 3.7 mmol/L (3.5-5.1)
[2024-06-21 10:36] LABS: CALCIUM 8.3 mg/dL (8.5-10.1)
[2024-06-21 10:37] LABS: ALBUMIN 2.2 g/dl (3.4-5.0); BLOOD UREA NITROGEN 18.8 mg/dL (7-18)
[2024-06-21 10:40] LABS: ANISOCYTOSIS 0; MACROCYTOSIS 0
[2024-06-21 10:40] LABS: CREATININE 1.2 mg/dL (0.55-1.3)
[2024-06-21 10:42] LABS: BILIRUBIN,TOTAL 0.5 mg/dL (0.2-1); TOT PROT 5.6 g/dl (6.4-8.2)
[2024-06-21] MEDS: FOLIC ACID 1 MG TABLET (FP) PO SCH (10:51)
[2024-06-21] MEDS ORDERED: PIPERACILLIN/TAZOB 3.375 GM 50 ML IVPB SCH (20:00)
[2024-06-22 09:14] LABS: HEMATOCRIT 21.3 % (32.4-45.2); HEMOGLOBIN 7.3 GM/dL (10.7-15.3); MCHC 34.4 g/dl (32.0-36.0); MEAN CELL VOLUME 84.4 fl (80-96); MEAN PLT VOLUME 7.6 fl (7.5-11.1); PLATELET COUNT 84 10^3/uL (134-434); RBC 2.52 M/mm3 (3.60-5.2); RDW 14.9 % (11.6-15.6); WHITE BLOOD COUNT 3.4 K/mm3 (4.0-10.0)
[2024-06-22 09:42] LABS: POTASSIUM 3.7 mmol/L (3.5-5.1)
[2024-06-22 09:45] LABS: ALBUMIN 2.2 g/dl (3.4-5.0); CALCIUM 8.3 mg/dL (8.5-10.1)
[2024-06-22 09:50] LABS: BILIRUBIN,TOTAL 0.6 mg/dL (0.2-1)
[2024-06-22 09:53] LABS: TOT PROT 5.6 g/dl (6.4-8.2)
[2024-06-22 10:11] LABS: BLOOD UREA NITROGEN 16.3 mg/dL (7-18)
[2024-06-22 12:05] LABS: ANISOCYTOSIS 0; MACROCYTOSIS 0
[2024-06-23 09:05] LABS: HEMATOCRIT 22.4 % (32.4-45.2); HEMOGLOBIN 7.4 GM/dL (10.7-15.3); MCH 28.3 pg (25.7-33.7); MEAN CELL VOLUME 85.8 fl (80-96); MEAN PLT VOLUME 7.7 fl (7.5-11.1); PLATELET COUNT 88 10^3/uL (134-434); RBC 2.61 M/mm3 (3.60-5.2); RDW 14.9 % (11.6-15.6); WHITE BLOOD COUNT 3.2 K/mm3 (4.0-10.0)
[2024-06-23 09:13] LABS: POTASSIUM 3.6 mmol/L (3.5-5.1)
[2024-06-23 09:15] LABS: ALBUMIN 2.2 g/dl (3.4-5.0)
[2024-06-23 09:19] LABS: BILIRUBIN,TOTAL 0.5 mg/dL (0.2-1); TOT PROT 5.6 g/dl (6.4-8.2)
[2024-06-24] MEDS: ONDANSETRON 4 MG TABLET PO ONE (11:33)
[2024-06-24] MEDS: LACTATED RINGERS SOLUTION 1,000 ML/1,000 ML INFUS.BAG IV SCH (13:57)
[2024-06-24] MEDS: LORazepam 2 MG/ML SDV VIAL IVPUSH ONE (17:24)
[2024-06-25 09:14] LABS: BASO % 0.4 % (0-2.0); EOS % 0.2 % (0-4.5); HEMATOCRIT 19.7 % (32.4-45.2); MCH 28.6 pg (25.7-33.7); MCHC 33.6 g/dl (32.0-36.0); MEAN PLT VOLUME 7.8 fl (7.5-11.1); MONO % 6.5 % (3.8-10.2); NEUT % 65.9 % (42.8-82.8); PLATELET COUNT 84 10^3/uL (134-434); RBC 2.32 M/mm3 (3.60-5.2); RDW 14.7 % (11.6-15.6)
[2024-06-25 09:32] LABS: POTASSIUM 3.4 mmol/L (3.5-5.1)
[2024-06-25 09:33] LABS: HEMOGLOBIN 6.6 GM/dL (10.7-15.3)
[2024-06-25 09:34] LABS: ALBUMIN 1.9 g/dl (3.4-5.0); BLOOD UREA NITROGEN 12.3 mg/dL (7-18); CALCIUM 7.9 mg/dL (8.5-10.1)
[2024-06-25 09:38] LABS: CREATININE 0.8 mg/dL (0.55-1.3)
[2024-06-25 09:40] LABS: BILIRUBIN,TOTAL 0.4 mg/dL (0.2-1)
[2024-06-25] MEDS: FAMOTIDINE 20 MG TABLET PO SCH (10:18)
[2024-06-26 08:42] LABS: BASO % 0.3 % (0-2.0); EOS % 0.2 % (0-4.5); HEMOGLOBIN 7.4 GM/dL (10.7-15.3); LYMPH % 28.2 % (8-40); MCHC 33.5 g/dl (32.0-36.0); MEAN CELL VOLUME 83.5 fl (80-96); MEAN PLT VOLUME 7.9 fl (7.5-11.1); MONO % 7.8 % (3.8-10.2); NEUT % 63.5 % (42.8-82.8); PLATELET COUNT 83 10^3/uL (134-434); RBC 2.64 M/mm3 (3.60-5.2); RDW 15.1 % (11.6-15.6); WHITE BLOOD COUNT 2.6 K/mm3 (4.0-10.0)
[2024-06-26 08:58] LABS: POTASSIUM 3.3 mmol/L (3.5-5.1)
[2024-06-26 09:15] LABS: ALBUMIN 1.9 g/dl (3.4-5.0); CALCIUM 7.9 mg/dL (8.5-10.1)
[2024-06-26 09:16] LABS: BLOOD UREA NITROGEN 9.4 mg/dL (7-18)
[2024-06-26 09:17] LABS: CREATININE 0.8 mg/dL (0.55-1.3)
[2024-06-26 09:20] LABS: BILIRUBIN,TOTAL 0.5 mg/dL (0.2-1); TOT PROT 4.7 g/dl (6.4-8.2)
[2024-06-26] MEDS: POTASSIUM CHLORIDE ORAL LIQUID 20 MEQ/15 ML PO ONE (13:41)
[2024-06-26] MEDS: CALCIUM CARBONATE 650 MG TABLET PO SCH (22:03)
[2024-06-28 09:09] LABS: HEMATOCRIT 22.9 % (32.4-45.2); HEMOGLOBIN 7.8 GM/dL (10.7-15.3); MCH 28.4 pg (25.7-33.7); MCHC 33.8 g/dl (32.0-36.0); MEAN CELL VOLUME 83.9 fl (80-96); MEAN PLT VOLUME 7.6 fl (7.5-11.1); PLATELET COUNT 86 10^3/uL (134-434); RBC 2.73 M/mm3 (3.60-5.2); RDW 14.8 % (11.6-15.6); WHITE BLOOD COUNT 2.5 K/mm3 (4.0-10.0)
[2024-06-28 09:11] LABS: INR 1.11 (0.83-1.09); PROTHROMBIN TIME (PATIENT) 12.5 SEC (9.7-13.0)
[2024-06-28 10:07] LABS: POTASSIUM 3.9 mmol/L (3.5-5.1)
[2024-06-28 10:16] LABS: BLOOD UREA NITROGEN 12.6 mg/dL (7-18)
[2024-06-28 10:17] LABS: ALBUMIN 2.1 g/dl (3.4-5.0); CALCIUM 9.2 mg/dL (8.5-10.1); MAGNESIUM 1.8 mg/dL (1.8-2.4)
[2024-06-28 10:20] LABS: CREATININE 0.9 mg/dL (0.55-1.3)
[2024-06-28 10:21] LABS: BILIRUBIN,TOTAL 0.4 mg/dL (0.2-1); TOT PROT 5.4 g/dl (6.4-8.2)
[2024-06-28] MEDS ORDERED: LIDOCAINE HCL 1%, 10 MG/ML (20ML VIAL) ONE (13:42)
[2024-06-28] MEDS ORDERED: BUPIVACAINE HCL/PF 0.5% (5MG/ML) 10 ML VIAL ONE (13:43)
[2024-06-28] MEDS ORDERED: LIDOCAINE HCL/PF 2% SDV 5ML VIAL ONE (14:35)
[2024-06-28] MEDS ORDERED: PROPOFOL 60 ML ONE (14:36)
[2024-06-28] MEDS ORDERED: MIDAZOLAM HCL 2 MG/2 ML SINGLE DOSE VIAL ONE (14:36)
[2024-06-28] MEDS: ceFAZolin SODIUM 1 GM VIAL IVPB ONE (14:58)
[2024-06-28] MEDS ORDERED: ceFAZolin SODIUM 1 GM VIAL ONE (15:00)
[2024-06-28] MEDS ORDERED: DEXAMETHASONE SOD PHOSPHATE 4 MG/1 ML VIAL ONE (15:00)
[2024-06-28] MEDS: BUPIVACAINE HCL/PF 0.5% (5 MG/ML) 30 ML VIAL IJ ONE (15:09)
[2024-06-28] MEDS: LIDOCAINE HCL 1%, 10 MG/ML (50 mL VIAL) INF ONE (15:09)
[2024-06-28] MEDS ORDERED: ONDANSETRON 4 MG/2 ML VIAL IVPUSH PRN ×2 (15:32→16:35)
[2024-06-28] MEDS ORDERED: PROMETHAZINE HCL 25 MG/1 ML VIAL IVPB PRN ×2 (15:32→16:35)
[2024-06-28] MEDS ORDERED: ACETAMINOPHEN INJECTION 100 ML ONE (15:48)
[2024-06-28] MEDS: ACETAMINOPHEN 1000 MG/100 ML BAG IVPB ONE (15:50)
[2024-06-28] MEDS: LACTATED RINGERS SOLUTION 1,000 ML IV SCH ×2 (16:42→17:40)
[2024-06-28] MEDS: CALCIUM CARBONATE 650 MG TABLET PO SCH (21:54)
[2024-06-28] MEDS: ALLOPURINOL 100 MG TABLET (FP) PO SCH (21:54)
[2024-06-28] MEDS: MIRTAZAPINE 15 MG TABLET (FP) PO SCH (21:54)
[2024-06-28] MEDS: oxyCODONE HCL 5 MG TABLET PO PRN (21:55)
[2024-06-28] MEDS: FAMOTIDINE 20 MG TABLET PO SCH (21:55)
[2024-06-28] MEDS: PRAMIPEXOLE DIHYDROCHLORIDE 0.25 MG TABLET PO SCH (21:55)
[2024-06-28] MEDS: ACETAMINOPHEN 325 MG TABLET (FP) PO PRN (23:13)
[2024-06-29] MEDS: LEVOTHYROXINE NA 100 MCG TABLET (FP) PO SCH (06:11)
[2024-06-29] MEDS: CALCITRIOL 0.25 MCG CAPSULE (FP) PO SCH (10:51)
[2024-06-29] MEDS: FOLIC ACID 1 MG TABLET (FP) PO SCH (10:51)
[2024-06-29] MEDS: CEFAZOLIN 1 GM/D5W 1 GM/50 ML BAG IVPB SCH (10:52)
[2024-06-29 13:31] LABS: HEMOGLOBIN 7.1 GM/dL (10.7-15.3); MCH 27.6 pg (25.7-33.7); MCHC 32.1 g/dl (32.0-36.0); MEAN CELL VOLUME 86.1 fl (80-96); MEAN PLT VOLUME 7.9 fl (7.5-11.1); PLATELET COUNT 92 10^3/uL (134-434); RBC 2.56 M/mm3 (3.60-5.2); RDW 14.5 % (11.6-15.6); WHITE BLOOD COUNT 3.1 K/mm3 (4.0-10.0)
[2024-06-29 13:52] LABS: POTASSIUM 4.1 mmol/L (3.5-5.1)
[2024-06-29 13:57] LABS: ALBUMIN 2.1 g/dl (3.4-5.0); BLOOD UREA NITROGEN 20.7 mg/dL (7-18); CALCIUM 9.2 mg/dL (8.5-10.1)
[2024-06-29 14:00] LABS: CREATININE 1.1 mg/dL (0.55-1.3)
[2024-06-29 14:02] LABS: BILIRUBIN,TOTAL 0.3 mg/dL (0.2-1); TOT PROT 5.2 g/dl (6.4-8.2)
[2024-06-29 19:40] VITALS: RESP 18
[2024-06-30 11:30] LABS: HEMATOCRIT 20.5 % (32.4-45.2); MCH 28.1 pg (25.7-33.7); MEAN PLT VOLUME 7.5 fl (7.5-11.1); PLATELET COUNT 94 10^3/uL (134-434); RBC 2.41 M/mm3 (3.60-5.2); RDW 14.1 % (11.6-15.6); WHITE BLOOD COUNT 2.7 K/mm3 (4.0-10.0)
[2024-06-30 11:41] LABS: HEMOGLOBIN 6.8 GM/dL (10.7-15.3)
[2024-06-30 11:57] LABS: POTASSIUM 3.6 mmol/L (3.5-5.1)
[2024-06-30 12:05] LABS: ALBUMIN 2.1 g/dl (3.4-5.0); BLOOD UREA NITROGEN 15.8 mg/dL (7-18); CALCIUM 8.7 mg/dL (8.5-10.1)
[2024-06-30 12:08] LABS: CREATININE 0.9 mg/dL (0.55-1.3)
[2024-06-30 12:10] LABS: BILIRUBIN,TOTAL 0.4 mg/dL (0.2-1); TOT PROT 5.1 g/dl (6.4-8.2)
[2024-07-01] MEDS: FUROSEMIDE 40 MG/4 ML INJECTABLE VIAL IVPUSH ONE (17:30)
[2024-07-02 09:29] VITALS: PULSE 102; TEMP 97.7
[2024-07-02 11:31] LABS: HEMATOCRIT 31.3 % (32.4-45.2); HEMOGLOBIN 10.8 GM/dL (10.7-15.3); MCHC 34.6 g/dl (32.0-36.0); MEAN CELL VOLUME 83.8 fl (80-96); MEAN PLT VOLUME 7.7 fl (7.5-11.1); PLATELET COUNT 99 10^3/uL (134-434); RBC 3.73 M/mm3 (3.60-5.2); RDW 14.4 % (11.6-15.6); WHITE BLOOD COUNT 3.2 K/mm3 (4.0-10.0)
[2024-07-02 11:46] LABS: POTASSIUM 3.6 mmol/L (3.5-5.1)
[2024-07-02 11:56] LABS: BLOOD UREA NITROGEN 15.8 mg/dL (7-18); CALCIUM 9.1 mg/dL (8.5-10.1)
[2024-07-02 11:57] LABS: ALBUMIN 2.6 g/dl (3.4-5.0)
[2024-07-02 11:59] LABS: BILIRUBIN,TOTAL 0.6 mg/dL (0.2-1); TOT PROT 6.2 g/dl (6.4-8.2)
[2024-07-02 12:16] LABS: ANISOCYTOSIS 0; MACROCYTOSIS 0
[2024-07-02 14:30] VITALS: BP 121/70
== END 2024-07-02 14:50 | disposition home or self-care (01) | DRG 603 ==
LOC: JER 15:14 → JERBED 20:33 → J5S 06-20 23:12
PROVIDERS: ADMIT Internal Medicine; ATTEND Family Medicine
PROC: 30233N1 Transfusion of Nonautologous Red Blood Cells into Peripheral Vein, Percutaneous Approach (ICD-10-PCS; principal; 2024-06-20)
PROC: 0W9K0ZZ Drainage of Upper Back, Open Approach (ICD-10-PCS; 2024-06-28)
PROC: 0JB70ZX Excision of Back Subcutaneous Tissue and Fascia, Open Approach, Diagnostic (ICD-10-PCS; 2024-06-28)
DX: L02.212 Cutaneous abscess of back [any part, except buttock and flank] (principal); D50.9 Iron deficiency anemia, unspecified; I25.10 Atherosclerotic heart disease of native coronary artery without angina pectoris; E11.9 Type 2 diabetes mellitus without complications; I10 Essential (primary) hypertension; E20.9 Hypoparathyroidism, unspecified; D47.2 Monoclonal gammopathy; D46.9 Myelodysplastic syndrome, unspecified; K76.0 Fatty (change of) liver, not elsewhere classified; R16.2 Hepatomegaly with splenomegaly, not elsewhere classified; E78.5 Hyperlipidemia, unspecified; G25.81 Restless legs syndrome; F41.9 Anxiety disorder, unspecified; H40.9 Unspecified glaucoma; Z96.642 Presence of left artificial hip joint; R79.89 Other specified abnormal findings of blood chemistry
CPT/HCPCS: 0241U-QW; 36415; 36430; 71045-TC-FY; 71250-TC; 71551-TC; 76705-TC; 80048; 80053; 82668; 82728; 82962; 83540; 83550; 83605; 83735; 84443; 84484; 85025; 85027; 85045; 85610; 85730; 86850; 86900; 86901; 86922; 87040; 87070; 87086; 87186; 87205; 88304-TC; 93005; 93010; 94760; 96372; 99285-25; G0480; J0131; P9058

== ENCOUNTER 2024-07-06 17:35 | Day surgery (SDC) | payer OTHER, MEDICARE ==
[2024-07-06] MEDS: [UNRECOGNIZED DRUG - OTHER] IM ONE (17:35)
[2024-07-06 17:58] VITALS: BP 119/59; PULSE 84; RESP 20; TEMP 97.7
== END 2024-07-06 17:55 | disposition home or self-care (01) ==
LOC: J7W 17:35 → JONCNONCHE 17:35
PROVIDERS: ATTEND Internal Medicine Hematology & Oncology
PROC: 3E023GC Introduction of Other Therapeutic Substance into Muscle, Percutaneous Approach (ICD-10-PCS; principal; 2024-07-06)
DX: E83.111 Hemochromatosis due to repeated red blood cell transfusions (principal); K55.21 Angiodysplasia of colon with hemorrhage
CPT/HCPCS: 96372

== ENCOUNTER 2024-07-07 17:35 | Day surgery (SDC) | payer OTHER, MEDICARE ==
[2024-07-07] MEDS: [UNRECOGNIZED DRUG - OTHER] IM ONE (17:40)
[2024-07-07 18:03] VITALS: BP 114/55; PULSE 89; RESP 20; TEMP 97.5
== END 2024-07-07 18:00 | disposition home or self-care (01) ==
LOC: JONCCHEMO 17:35
PROVIDERS: ATTEND Internal Medicine Hematology & Oncology
PROC: 3E013GC Introduction of Other Therapeutic Substance into Subcutaneous Tissue, Percutaneous Approach (ICD-10-PCS; principal; 2024-07-07)
DX: E83.111 Hemochromatosis due to repeated red blood cell transfusions (principal); K55.21 Angiodysplasia of colon with hemorrhage
CPT/HCPCS: 96372

== ENCOUNTER 2024-07-08 13:00 | Day surgery (SDC) | payer OTHER, MEDICARE ==
[2024-07-08] MEDS: [UNRECOGNIZED DRUG - OTHER] IM ONE (13:16)
[2024-07-08 14:58] VITALS: BP 121/59; PULSE 83; RESP 18; TEMP 98.2
== END 2024-07-08 13:30 | disposition home or self-care (01) ==
LOC: JONCCHEMO 13:00 → J7W 13:03 → JONCCHEMO 13:15
PROVIDERS: ATTEND Internal Medicine Hematology & Oncology
PROC: 3E013GC Introduction of Other Therapeutic Substance into Subcutaneous Tissue, Percutaneous Approach (ICD-10-PCS; principal; 2024-07-08)
DX: E83.111 Hemochromatosis due to repeated red blood cell transfusions (principal); K55.21 Angiodysplasia of colon with hemorrhage; C90.00 Multiple myeloma not having achieved remission
CPT/HCPCS: 96372

== ENCOUNTER 2024-07-14 18:05 | Day surgery (SDC) | payer OTHER, MEDICARE ==
[2024-07-14] MEDS: [UNRECOGNIZED DRUG - OTHER] IM ONE (18:08)
[2024-07-14 18:21] VITALS: BP 119/44; PULSE 72; RESP 18; TEMP 98.2
== END 2024-07-14 18:25 | disposition home or self-care (01) ==
LOC: JONCCHEMO 18:05 → J7W 18:05 → JONCCHEMO 18:25
PROVIDERS: ATTEND Internal Medicine Hematology & Oncology
PROC: 3E023GC Introduction of Other Therapeutic Substance into Muscle, Percutaneous Approach (ICD-10-PCS; principal; 2024-07-14)
DX: K55.21 Angiodysplasia of colon with hemorrhage (principal)
CPT/HCPCS: 96372

== ENCOUNTER 2024-07-15 17:30 | Day surgery (SDC) | payer OTHER, MEDICARE ==
[2024-07-15 17:48] VITALS: BP 101/48
[2024-07-15] MEDS: [UNRECOGNIZED DRUG - OTHER] IM ONE (17:48)
[2024-07-15 17:51] VITALS: PULSE 76; RESP 16; TEMP 97.6
== END 2024-07-15 18:00 | disposition home or self-care (01) ==
LOC: JONCCHEMO 17:30 → J7W 17:30 → JONCCHEMO 18:00
PROVIDERS: ATTEND Internal Medicine Hematology & Oncology
PROC: 3E023GC Introduction of Other Therapeutic Substance into Muscle, Percutaneous Approach (ICD-10-PCS; principal; 2024-07-15)
DX: K55.21 Angiodysplasia of colon with hemorrhage (principal)
CPT/HCPCS: 96372

== ENCOUNTER 2024-08-04 17:20 | Day surgery (SDC) | payer OTHER, MEDICARE ==
[2024-08-04] MEDS: [UNRECOGNIZED DRUG - OTHER] IM ONE (17:28)
[2024-08-04 17:57] VITALS: BP 112/54; PULSE 91; RESP 20; TEMP 97.4
== END 2024-08-04 17:35 | disposition home or self-care (01) ==
LOC: J7W 17:20 → JONCCHEMO 17:20
PROVIDERS: ATTEND Internal Medicine Hematology & Oncology
PROC: 3E013GC Introduction of Other Therapeutic Substance into Subcutaneous Tissue, Percutaneous Approach (ICD-10-PCS; principal; 2024-08-04)
DX: E83.111 Hemochromatosis due to repeated red blood cell transfusions (principal); K55.21 Angiodysplasia of colon with hemorrhage
CPT/HCPCS: 96375

== ENCOUNTER 2024-08-05 17:30 | Day surgery (SDC) | payer OTHER, MEDICARE ==
[2024-08-05] MEDS: [UNRECOGNIZED DRUG - OTHER] IM ONE (17:38)
[2024-08-05 17:55] VITALS: BP 149/68; PULSE 92; RESP 20; TEMP 97.7
== END 2024-08-05 17:55 | disposition home or self-care (01) ==
LOC: JONCCHEMO 17:30 → J7W 17:30 → JONCCHEMO 17:55
PROVIDERS: ATTEND Internal Medicine Hematology & Oncology
PROC: 3E013GC Introduction of Other Therapeutic Substance into Subcutaneous Tissue, Percutaneous Approach (ICD-10-PCS; principal; 2024-08-05)
DX: E83.111 Hemochromatosis due to repeated red blood cell transfusions (principal); K55.21 Angiodysplasia of colon with hemorrhage
CPT/HCPCS: 96372

== ENCOUNTER 2024-08-06 12:14 | Day surgery (SDC) | payer OTHER, MEDICARE ==
[2024-08-06] MEDS: [UNRECOGNIZED DRUG - OTHER] IM ONE (12:51)
[2024-08-06 15:30] VITALS: BP 124/59; PULSE 78; RESP 16; TEMP 97
== END 2024-08-06 13:00 | disposition home or self-care (01) ==
LOC: JONCCHEMO 12:14
PROVIDERS: ATTEND Internal Medicine Hematology & Oncology
PROC: 3E013GC Introduction of Other Therapeutic Substance into Subcutaneous Tissue, Percutaneous Approach (ICD-10-PCS; principal; 2024-08-06)
DX: E83.111 Hemochromatosis due to repeated red blood cell transfusions (principal); K55.21 Angiodysplasia of colon with hemorrhage
CPT/HCPCS: 96372

== ENCOUNTER 2024-08-10 09:20 | Day surgery (SDC) | payer OTHER, MEDICARE ==
[2024-08-10] MEDS: [UNRECOGNIZED DRUG - OTHER] IM ONE (09:16)
[2024-08-10 13:11] VITALS: BP 117/50; PULSE 89; RESP 20; TEMP 97.9
== END 2024-08-10 09:45 | disposition home or self-care (01) ==
LOC: JONCCHEMO 09:20 → J7W 09:21 → JONCCHEMO 09:45
PROVIDERS: ATTEND Internal Medicine Hematology & Oncology
PROC: 3E013GC Introduction of Other Therapeutic Substance into Subcutaneous Tissue, Percutaneous Approach (ICD-10-PCS; principal; 2024-08-10)
DX: E83.111 Hemochromatosis due to repeated red blood cell transfusions (principal); K55.21 Angiodysplasia of colon with hemorrhage
CPT/HCPCS: 96372

== ENCOUNTER 2024-08-11 17:40 | Day surgery (SDC) | payer OTHER, MEDICARE ==
[2024-08-11] MEDS: [UNRECOGNIZED DRUG - OTHER] IM ONE (17:43)
[2024-08-11 18:26] VITALS: BP 128/78; PULSE 91; RESP 20; TEMP 97.3
== END 2024-08-11 17:55 | disposition home or self-care (01) ==
LOC: J7W 17:40 → JONCCHEMO 17:40
PROVIDERS: ATTEND Internal Medicine Hematology & Oncology
PROC: 3E013GC Introduction of Other Therapeutic Substance into Subcutaneous Tissue, Percutaneous Approach (ICD-10-PCS; principal; 2024-08-11)
DX: E83.111 Hemochromatosis due to repeated red blood cell transfusions (principal)
CPT/HCPCS: 96372

== ENCOUNTER 2024-08-12 17:30 | Day surgery (SDC) | payer OTHER, MEDICARE ==
[2024-08-12] MEDS: [UNRECOGNIZED DRUG - OTHER] IM ONE (17:35)
[2024-08-12 18:23] VITALS: BP 136/71; PULSE 90; RESP 18
== END 2024-08-12 17:50 | disposition home or self-care (01) ==
LOC: J7W 17:30 → JONCCHEMO 17:30
PROVIDERS: ATTEND Internal Medicine Hematology & Oncology
PROC: 3E013GC Introduction of Other Therapeutic Substance into Subcutaneous Tissue, Percutaneous Approach (ICD-10-PCS; principal; 2024-08-12)
DX: E83.111 Hemochromatosis due to repeated red blood cell transfusions (principal); K55.21 Angiodysplasia of colon with hemorrhage
CPT/HCPCS: 96372

== ENCOUNTER 2024-08-13 12:00 | Day surgery (SDC) | payer OTHER, MEDICARE ==
[2024-08-13] MEDS: [UNRECOGNIZED DRUG - OTHER] IM ONE (12:20)
[2024-08-13 13:45] VITALS: BP 126/42; PULSE 79; RESP 18; TEMP 97.5
== END 2024-08-13 12:30 | disposition home or self-care (01) ==
LOC: JONCCHEMO 12:00 → J7W 13:22
PROVIDERS: ATTEND Internal Medicine Hematology & Oncology
PROC: 3E013GC Introduction of Other Therapeutic Substance into Subcutaneous Tissue, Percutaneous Approach (ICD-10-PCS; principal; 2024-08-13)
DX: E83.111 Hemochromatosis due to repeated red blood cell transfusions (principal)
CPT/HCPCS: 96372

== ENCOUNTER 2024-08-16 10:45 | Day surgery (SDC) | payer OTHER, MEDICARE ==
[2024-08-16] MEDS: [UNRECOGNIZED DRUG - OTHER] IM ONE (10:56)
[2024-08-16 15:52] VITALS: BP 110/36; PULSE 78; RESP 20; TEMP 97.3
== END 2024-08-16 11:05 | disposition home or self-care (01) ==
LOC: JONCCHEMO 10:45
PROVIDERS: ATTEND Internal Medicine Hematology & Oncology
PROC: 3E013GC Introduction of Other Therapeutic Substance into Subcutaneous Tissue, Percutaneous Approach (ICD-10-PCS; principal; 2024-08-16)
DX: E83.111 Hemochromatosis due to repeated red blood cell transfusions (principal)
CPT/HCPCS: 96372

== ENCOUNTER 2024-08-17 17:23 | Day surgery (SDC) | payer OTHER, MEDICARE ==
[2024-08-17] MEDS: [UNRECOGNIZED DRUG - OTHER] IM ONE (17:35)
[2024-08-17 17:41] VITALS: BP 138/46; PULSE 89; RESP 20; TEMP 97.3
== END 2024-08-17 17:45 | disposition home or self-care (01) ==
LOC: J7W 17:23 → JONCCHEMO 17:23
PROVIDERS: ATTEND Internal Medicine Hematology & Oncology
PROC: 3E013GC Introduction of Other Therapeutic Substance into Subcutaneous Tissue, Percutaneous Approach (ICD-10-PCS; principal; 2024-08-17)
DX: D50.9 Iron deficiency anemia, unspecified (principal)
CPT/HCPCS: 96372

== ENCOUNTER 2024-08-18 07:54 | Day surgery (SDC) | payer OTHER, MEDICARE ==
[2024-08-18 08:36] LABS: HEMATOCRIT 20.8 % (32.4-45.2); MCH 28.1 pg (25.7-33.7); MCHC 33.9 g/dl (32.0-36.0); MEAN CELL VOLUME 82.8 fl (80-96); MEAN PLT VOLUME 7.8 fl (7.5-11.1); PLATELET COUNT 116 10^3/uL (134-434); RBC 2.51 M/mm3 (3.60-5.2); RDW 14.4 % (11.6-15.6)
[2024-08-18 11:10] LABS: ANISOCYTOSIS 1+; MACROCYTOSIS 0
[2024-08-18] MEDS: FUROSEMIDE 40 MG TABLET (FP) PO ONE (13:20)
[2024-08-18] MEDS: POTASSIUM CHLORIDE TABS 20 MEQ TABLET.ER (FP) PO ONE (13:20)
[2024-08-18 13:29] VITALS: RESP 18
[2024-08-18] MEDS: [UNRECOGNIZED DRUG - OTHER] IM ONE (17:37)
[2024-08-18] MEDS: PORTA CATH FLUSH 10 ML IVPUSH PRN (17:58)
[2024-08-18 18:00] LABS: HEMATOCRIT 27.2 % (32.4-45.2); HEMOGLOBIN 9.3 GM/dL (10.7-15.3); MCH 28.5 pg (25.7-33.7); MCHC 34.1 g/dl (32.0-36.0); MEAN CELL VOLUME 83.7 fl (80-96); MEAN PLT VOLUME 7.4 fl (7.5-11.1); PLATELET COUNT 101 10^3/uL (134-434); RBC 3.25 M/mm3 (3.60-5.2); RDW 14.5 % (11.6-15.6); WHITE BLOOD COUNT 5.6 K/mm3 (4.0-10.0)
[2024-08-18 18:07] VITALS: BP 110/46; PULSE 78; TEMP 98.5
[2024-08-18 19:54] LABS: ANISOCYTOSIS 1+; MACROCYTOSIS 1+; OVALOCYTE 1+; TEAR DROP CELLS 1+
== END 2024-08-18 18:11 | disposition home or self-care (01) ==
LOC: JONCBLOOD 07:54 → J7W 07:59 → JONCBLOOD 18:11
PROVIDERS: ATTEND Internal Medicine Hematology & Oncology
PROC: 30233N1 Transfusion of Nonautologous Red Blood Cells into Peripheral Vein, Percutaneous Approach (ICD-10-PCS; principal; 2024-08-18)
PROC: 3E013GC Introduction of Other Therapeutic Substance into Subcutaneous Tissue, Percutaneous Approach (ICD-10-PCS; 2024-08-18)
DX: E83.111 Hemochromatosis due to repeated red blood cell transfusions (principal)
CPT/HCPCS: 36415; 36430; 85025; 86850; 86900; 86901; 86922; 96372; P9038; P9058

== ENCOUNTER 2024-08-19 17:17 | Day surgery (SDC) | payer OTHER, MEDICARE ==
[2024-08-18] MEDS: POTASSIUM CHLORIDE TABS 20 MEQ TABLET.ER (FP) PO ONE (19:32)
[2024-08-18] MEDS: FUROSEMIDE 40 MG TABLET (FP) PO ONE (19:32)
[~2024-08-19 17:17] MED LIST changes: +FUROSEMIDE 40 MG TABLET (FP) PO ONE; +POTASSIUM CHLORIDE TABS 20 MEQ TABLET.ER (FP) PO ONE; -[UNRECOGNIZED DRUG - OTHER] IM ONE
[2024-08-19] MEDS: [UNRECOGNIZED DRUG - OTHER] IM ONE (17:38)
[2024-08-20 07:54] VITALS: BP 114/47; PULSE 72; RESP 20; TEMP 97.4
== END 2024-08-19 18:00 | disposition home or self-care (01) ==
LOC: JONCCHEMO 17:17 → J7W 17:19 → JONCCHEMO 18:00
PROVIDERS: ATTEND Internal Medicine Hematology & Oncology
PROC: 3E013GC Introduction of Other Therapeutic Substance into Subcutaneous Tissue, Percutaneous Approach (ICD-10-PCS; principal; 2024-08-19)
DX: E83.111 Hemochromatosis due to repeated red blood cell transfusions (principal); K55.21 Angiodysplasia of colon with hemorrhage
CPT/HCPCS: 96372

== ENCOUNTER 2024-08-20 12:30 | Day surgery (SDC) | payer OTHER, MEDICARE ==
[2024-08-20] MEDS: [UNRECOGNIZED DRUG - OTHER] IM ONE (12:36)
[2024-08-20 13:45] VITALS: BP 120/55; PULSE 73; RESP 20; TEMP 97.7
== END 2024-08-20 12:55 | disposition home or self-care (01) ==
LOC: JONCCHEMO 12:30
PROVIDERS: ATTEND Internal Medicine Hematology & Oncology
PROC: 3E013GC Introduction of Other Therapeutic Substance into Subcutaneous Tissue, Percutaneous Approach (ICD-10-PCS; principal; 2024-08-20)
DX: E83.111 Hemochromatosis due to repeated red blood cell transfusions (principal); K55.21 Angiodysplasia of colon with hemorrhage; C90.00 Multiple myeloma not having achieved remission
CPT/HCPCS: 96372

== ENCOUNTER 2024-08-23 11:20 | Day surgery (SDC) | payer OTHER, MEDICARE ==
[2024-08-23] MEDS: [UNRECOGNIZED DRUG - OTHER] IM ONE (11:25)
[2024-08-23 12:57] VITALS: BP 111/46; PULSE 66; RESP 18; TEMP 98.2
== END 2024-08-23 11:40 | disposition home or self-care (01) ==
LOC: JONCCHEMO 11:20 → J7W 11:20 → JONCCHEMO 11:40
PROVIDERS: ATTEND Internal Medicine Hematology & Oncology
PROC: 3E013GC Introduction of Other Therapeutic Substance into Subcutaneous Tissue, Percutaneous Approach (ICD-10-PCS; principal; 2024-08-23)
DX: E83.111 Hemochromatosis due to repeated red blood cell transfusions (principal); K55.21 Angiodysplasia of colon with hemorrhage; C90.00 Multiple myeloma not having achieved remission
CPT/HCPCS: 96372

== ENCOUNTER 2024-08-24 17:25 | Day surgery (SDC) | payer OTHER, MEDICARE ==
[2024-08-24] MEDS: [UNRECOGNIZED DRUG - OTHER] IM ONE (17:29)
[2024-08-24 17:43] VITALS: BP 124/42; PULSE 64; RESP 20; TEMP 97.3
== END 2024-08-24 17:45 | disposition home or self-care (01) ==
LOC: JONCCHEMO 17:25 → J7W 17:38 → JONCCHEMO 17:45
PROVIDERS: ATTEND Internal Medicine Hematology & Oncology
PROC: 3E023GC Introduction of Other Therapeutic Substance into Muscle, Percutaneous Approach (ICD-10-PCS; principal; 2024-08-24)
DX: E83.19 Other disorders of iron metabolism (principal)
CPT/HCPCS: 96372

== ENCOUNTER → 2024-08-25 17:30 | Day surgery (SDC) | payer OTHER, MEDICARE ==
[2024-08-25] MEDS: [UNRECOGNIZED DRUG - OTHER] IM ONE (17:27)
[2024-08-25 18:26] VITALS: BP 127/58; PULSE 76; RESP 20; TEMP 97.7
== END | disposition home or self-care (01) ==
LOC: JONCCHEMO 17:30 → J7W 17:30
PROVIDERS: ATTEND Internal Medicine Hematology & Oncology
PROC: 3E023GC Introduction of Other Therapeutic Substance into Muscle, Percutaneous Approach (ICD-10-PCS; principal; 2024-08-25)
DX: E83.111 Hemochromatosis due to repeated red blood cell transfusions (principal); K55.21 Angiodysplasia of colon with hemorrhage; C90.00 Multiple myeloma not having achieved remission
CPT/HCPCS: 96372

== ENCOUNTER 2024-08-26 17:30 | Day surgery (SDC) | payer OTHER, MEDICARE ==
[2024-08-26] MEDS: [UNRECOGNIZED DRUG - OTHER] IM ONE (17:50)
[2024-08-26 17:55] VITALS: BP 130/57; PULSE 69; RESP 20; TEMP 97.3
== END 2024-08-26 18:00 | disposition home or self-care (01) ==
LOC: JONCCHEMO 17:30 → J7W 17:30 → JONCCHEMO 18:00
PROVIDERS: ATTEND Internal Medicine Hematology & Oncology
PROC: 3E013GC Introduction of Other Therapeutic Substance into Subcutaneous Tissue, Percutaneous Approach (ICD-10-PCS; principal; 2024-08-26)
DX: E83.111 Hemochromatosis due to repeated red blood cell transfusions (principal); K55.21 Angiodysplasia of colon with hemorrhage; C90.00 Multiple myeloma not having achieved remission
CPT/HCPCS: 96372

== ENCOUNTER 2024-08-27 09:01 | Day surgery (SDC) | payer OTHER, MEDICARE ==
[2024-08-27] MEDS: [UNRECOGNIZED DRUG - OTHER] IM ONE (09:03)
[2024-08-27 11:04] VITALS: BP 115/54; PULSE 88; RESP 18; TEMP 97.8
== END 2024-08-27 09:30 | disposition home or self-care (01) ==
LOC: JONCCHEMO 09:01
PROVIDERS: ATTEND Internal Medicine Hematology & Oncology
PROC: 3E013GC Introduction of Other Therapeutic Substance into Subcutaneous Tissue, Percutaneous Approach (ICD-10-PCS; principal; 2024-08-27)
DX: E83.111 Hemochromatosis due to repeated red blood cell transfusions (principal); K55.21 Angiodysplasia of colon with hemorrhage; C90.00 Multiple myeloma not having achieved remission
CPT/HCPCS: 96372

== ENCOUNTER 2024-08-30 11:21 | Day surgery (SDC) | payer OTHER, MEDICARE ==
[2024-08-30] MEDS: [UNRECOGNIZED DRUG - OTHER] IM ONE (11:22)
[2024-08-30 13:09] VITALS: BP 118/56; PULSE 67; RESP 20; TEMP 97.5
== END 2024-08-30 11:45 | disposition home or self-care (01) ==
LOC: JONCCHEMO 11:21 → J7W 12:09
PROVIDERS: ATTEND Internal Medicine Hematology & Oncology
PROC: 3E013GC Introduction of Other Therapeutic Substance into Subcutaneous Tissue, Percutaneous Approach (ICD-10-PCS; principal; 2024-08-30)
DX: E83.111 Hemochromatosis due to repeated red blood cell transfusions (principal); K55.21 Angiodysplasia of colon with hemorrhage; C90.00 Multiple myeloma not having achieved remission; Z76.89 Persons encountering health services in other specified circumstances
CPT/HCPCS: 96372

== ENCOUNTER 2024-08-31 17:30 | Day surgery (SDC) | payer OTHER, MEDICARE ==
[2024-08-31] MEDS: [UNRECOGNIZED DRUG - OTHER] IM ONE (17:30)
[2024-08-31 18:27] VITALS: BP 120/51; PULSE 71; RESP 18; TEMP 97.3
== END 2024-08-31 17:50 | disposition home or self-care (01) ==
LOC: JONCCHEMO 17:30 → J7W 17:30 → JONCCHEMO 17:50
PROVIDERS: ATTEND Internal Medicine Hematology & Oncology
PROC: 3E013GC Introduction of Other Therapeutic Substance into Subcutaneous Tissue, Percutaneous Approach (ICD-10-PCS; principal; 2024-08-31)
DX: E83.111 Hemochromatosis due to repeated red blood cell transfusions (principal); K55.21 Angiodysplasia of colon with hemorrhage; C90.00 Multiple myeloma not having achieved remission
CPT/HCPCS: 96372

== ENCOUNTER 2024-09-01 17:30 | Day surgery (SDC) | payer OTHER, MEDICARE ==
[2024-09-01] MEDS: [UNRECOGNIZED DRUG - OTHER] IM ONE (17:31)
[2024-09-01 18:03] VITALS: BP 116/55; PULSE 84; RESP 18; TEMP 97.7
== END 2024-09-01 17:40 | disposition home or self-care (01) ==
LOC: JONCCHEMO 17:30 → J7W 17:42
PROVIDERS: ATTEND Internal Medicine Hematology & Oncology
PROC: 3E013GC Introduction of Other Therapeutic Substance into Subcutaneous Tissue, Percutaneous Approach (ICD-10-PCS; principal; 2024-09-01)
DX: E83.111 Hemochromatosis due to repeated red blood cell transfusions (principal); K55.21 Angiodysplasia of colon with hemorrhage; C90.00 Multiple myeloma not having achieved remission
CPT/HCPCS: 96372

== ENCOUNTER 2024-09-02 09:08 | Day surgery (SDC) | payer OTHER, MEDICARE ==
[2024-09-02 08:38] LABS: HEMOGLOBIN 7.1 GM/dL (10.7-15.3); RBC 2.48 M/mm3 (3.60-5.2); WHITE BLOOD COUNT 5.9 K/mm3 (4.0-10.0)
[2024-09-02 08:39] LABS: HEMATOCRIT 20.9 % (32.4-45.2); MCH 28.9 pg (25.7-33.7); MCHC 34.2 g/dl (32.0-36.0); MEAN CELL VOLUME 84.5 fl (80-96); PLATELET COUNT 104 10^3/uL (134-434); RDW 14.9 % (11.6-15.6)
[2024-09-02 09:47] LABS: ANISOCYTOSIS 1+
[2024-09-02] MEDS: FUROSEMIDE 40 MG/4 ML INJECTABLE VIAL IVPUSH ONE (13:24)
[2024-09-02 16:49] VITALS: BP 109/51; PULSE 73; RESP 18; TEMP 98.1
[2024-09-02] MEDS: [UNRECOGNIZED DRUG - OTHER] IM ONE (17:02)
[2024-09-02] MEDS: PORTA CATH FLUSH 10 ML IVPUSH PRN (17:21)
[2024-09-02 17:51] LABS: HEMATOCRIT 25.8 % (32.4-45.2); MCH 28.7 pg (25.7-33.7); MCHC 34.7 g/dl (32.0-36.0); MEAN CELL VOLUME 82.7 fl (80-96); PLATELET COUNT 97 10^3/uL (134-434); RBC 3.12 M/mm3 (3.60-5.2); RDW 14.5 % (11.6-15.6); WHITE BLOOD COUNT 5.8 K/mm3 (4.0-10.0)
== END 2024-09-02 17:55 | disposition home or self-care (01) ==
LOC: JONCBLOOD 09:08 → J7W 09:10 → JONCBLOOD 17:27
PROVIDERS: ATTEND Internal Medicine Hematology & Oncology
PROC: 30243N1 Transfusion of Nonautologous Red Blood Cells into Central Vein, Percutaneous Approach (ICD-10-PCS; principal; 2024-09-02)
PROC: 3E023GC Introduction of Other Therapeutic Substance into Muscle, Percutaneous Approach (ICD-10-PCS; 2024-09-02)
DX: K55.21 Angiodysplasia of colon with hemorrhage (principal); E83.111 Hemochromatosis due to repeated red blood cell transfusions; D50.9 Iron deficiency anemia, unspecified; C90.00 Multiple myeloma not having achieved remission; Z76.89 Persons encountering health services in other specified circumstances
CPT/HCPCS: 36415; 36430; 36511; 85025; 85027; 86850; 86900; 86901; 86922; 96372; P9038; P9058

== ENCOUNTER 2024-09-03 10:40 | Day surgery (SDC) | payer OTHER, MEDICARE ==
[2024-09-03] MEDS: [UNRECOGNIZED DRUG - OTHER] IM ONE (11:07)
[2024-09-03 15:03] VITALS: BP 123/60; PULSE 69; RESP 20; TEMP 98
== END 2024-09-03 11:30 | disposition home or self-care (01) ==
LOC: J7W 10:40 → JONCCHEMO 10:40
PROVIDERS: ATTEND Internal Medicine Hematology & Oncology
PROC: 3E013GC Introduction of Other Therapeutic Substance into Subcutaneous Tissue, Percutaneous Approach (ICD-10-PCS; principal; 2024-09-03)
DX: E83.111 Hemochromatosis due to repeated red blood cell transfusions (principal); K55.21 Angiodysplasia of colon with hemorrhage; C90.00 Multiple myeloma not having achieved remission
CPT/HCPCS: 96372

== ENCOUNTER 2024-09-06 10:35 | Day surgery (SDC) | payer OTHER, MEDICARE ==
[2024-09-06] MEDS: [UNRECOGNIZED DRUG - OTHER] IM ONE (10:40)
[2024-09-06 17:11] VITALS: BP 141/64; PULSE 69; RESP 18; TEMP 97.6
== END 2024-09-06 11:00 | disposition home or self-care (01) ==
LOC: JONCNONCHE 10:35 → J7W 10:36 → JONCNONCHE 11:00
PROVIDERS: ATTEND Internal Medicine Hematology & Oncology
PROC: 3E023GC Introduction of Other Therapeutic Substance into Muscle, Percutaneous Approach (ICD-10-PCS; principal; 2024-09-06)
DX: E83.111 Hemochromatosis due to repeated red blood cell transfusions (principal); K55.21 Angiodysplasia of colon with hemorrhage; C90.00 Multiple myeloma not having achieved remission
CPT/HCPCS: 96372

== ENCOUNTER 2024-09-07 17:30 | Day surgery (SDC) | payer OTHER, MEDICARE ==
[2024-09-07] MEDS: [UNRECOGNIZED DRUG - OTHER] IM ONE (17:32)
[2024-09-07 17:58] VITALS: BP 127/79; PULSE 79; RESP 18; TEMP 97.5
== END 2024-09-07 17:50 | disposition home or self-care (01) ==
LOC: JONCNONCHE 17:30 → J7W 17:40 → JONCNONCHE 17:50
PROVIDERS: ATTEND Internal Medicine Hematology & Oncology
PROC: 3E023GC Introduction of Other Therapeutic Substance into Muscle, Percutaneous Approach (ICD-10-PCS; principal; 2024-09-07)
DX: E83.111 Hemochromatosis due to repeated red blood cell transfusions (principal); K55.21 Angiodysplasia of colon with hemorrhage; C90.00 Multiple myeloma not having achieved remission; Z76.89 Persons encountering health services in other specified circumstances
CPT/HCPCS: 96372

== ENCOUNTER 2024-09-08 17:30 | Day surgery (SDC) | payer OTHER, MEDICARE ==
[2024-09-08] MEDS: [UNRECOGNIZED DRUG - OTHER] IM ONE (17:43)
[2024-09-08 18:28] VITALS: BP 142/63; PULSE 77; RESP 18; TEMP 97.5
== END 2024-09-08 18:00 | disposition home or self-care (01) ==
LOC: J7W 17:30 → JONCNONCHE 17:30
PROVIDERS: ATTEND Internal Medicine Hematology & Oncology
PROC: 3E023GC Introduction of Other Therapeutic Substance into Muscle, Percutaneous Approach (ICD-10-PCS; principal; 2024-09-08)
DX: E83.111 Hemochromatosis due to repeated red blood cell transfusions (principal); K55.21 Angiodysplasia of colon with hemorrhage; C90.00 Multiple myeloma not having achieved remission; Z76.89 Persons encountering health services in other specified circumstances
CPT/HCPCS: 96374

== ENCOUNTER 2024-09-09 17:30 | Day surgery (SDC) | payer OTHER, MEDICARE ==
[2024-09-09] MEDS: [UNRECOGNIZED DRUG - OTHER] IM ONE (17:39)
[2024-09-09 17:42] VITALS: BP 125/59; PULSE 75; RESP 20; TEMP 97.4
== END 2024-09-09 17:55 | disposition home or self-care (01) ==
LOC: JONCNONCHE 17:30 → J7W 17:50 → JONCNONCHE 17:55
PROVIDERS: ATTEND Internal Medicine Hematology & Oncology
PROC: 3E023GC Introduction of Other Therapeutic Substance into Muscle, Percutaneous Approach (ICD-10-PCS; principal; 2024-09-09)
DX: E83.111 Hemochromatosis due to repeated red blood cell transfusions (principal); K55.21 Angiodysplasia of colon with hemorrhage; C90.00 Multiple myeloma not having achieved remission
CPT/HCPCS: 96372

== ENCOUNTER 2024-09-10 10:30 | Day surgery (SDC) | payer OTHER, MEDICARE ==
[2024-09-10] MEDS: [UNRECOGNIZED DRUG - OTHER] IM ONE (10:36)
[2024-09-10 10:43] VITALS: BP 120/52; PULSE 79; RESP 18; TEMP 97.9
== END 2024-09-10 10:50 | disposition home or self-care (01) ==
LOC: J7W 10:30 → JONCCHEMO 10:30
PROVIDERS: ATTEND Internal Medicine Hematology & Oncology
DX: E83.111 Hemochromatosis due to repeated red blood cell transfusions (principal); K55.21 Angiodysplasia of colon with hemorrhage; C90.00 Multiple myeloma not having achieved remission
CPT/HCPCS: 96372

== ENCOUNTER 2024-09-13 10:58 | Day surgery (SDC) | payer OTHER, MEDICARE ==
[2024-09-13] MEDS: [UNRECOGNIZED DRUG - OTHER] IM ONE (12:15)
[2024-09-13 14:08] VITALS: BP 115/55; PULSE 64; RESP 20; TEMP 97.5
== END 2024-09-13 12:25 | disposition home or self-care (01) ==
LOC: JONCCHEMO 10:58
PROVIDERS: ATTEND Internal Medicine Hematology & Oncology
PROC: 3E023GC Introduction of Other Therapeutic Substance into Muscle, Percutaneous Approach (ICD-10-PCS; principal; 2024-09-13)
DX: E83.111 Hemochromatosis due to repeated red blood cell transfusions (principal); K55.21 Angiodysplasia of colon with hemorrhage; C90.00 Multiple myeloma not having achieved remission
CPT/HCPCS: 96372

== ENCOUNTER 2024-09-14 17:30 | Day surgery (SDC) | payer OTHER, MEDICARE ==
[2024-09-14] MEDS: [UNRECOGNIZED DRUG - OTHER] IM ONE (17:36)
[2024-09-14 19:07] VITALS: BP 131/53; PULSE 71; RESP 18; TEMP 97.3
== END 2024-09-14 17:50 | disposition home or self-care (01) ==
LOC: JONCNONCHE 17:30 → J7W 17:45 → JONCNONCHE 17:50
PROVIDERS: ATTEND Internal Medicine Hematology & Oncology
PROC: 3E023GC Introduction of Other Therapeutic Substance into Muscle, Percutaneous Approach (ICD-10-PCS; principal; 2024-09-14)
DX: E83.111 Hemochromatosis due to repeated red blood cell transfusions (principal); K55.21 Angiodysplasia of colon with hemorrhage; C90.00 Multiple myeloma not having achieved remission
CPT/HCPCS: 96372

== ENCOUNTER 2024-09-15 17:30 | Day surgery (SDC) | payer OTHER, MEDICARE ==
[2024-09-15] MEDS: [UNRECOGNIZED DRUG - OTHER] IM ONE (17:32)
[2024-09-15 17:57] VITALS: BP 131/52; PULSE 72; RESP 18; TEMP 97.3
== END 2024-09-15 18:02 | disposition home or self-care (01) ==
LOC: JONCCHEMO 17:30 → J7W 17:42 → JONCCHEMO 18:02
PROVIDERS: ATTEND Internal Medicine Hematology & Oncology
PROC: 3E023GC Introduction of Other Therapeutic Substance into Muscle, Percutaneous Approach (ICD-10-PCS; principal; 2024-09-15)
DX: E83.111 Hemochromatosis due to repeated red blood cell transfusions (principal); K55.21 Angiodysplasia of colon with hemorrhage; C90.00 Multiple myeloma not having achieved remission; Z76.89 Persons encountering health services in other specified circumstances
CPT/HCPCS: 96372

== ENCOUNTER 2024-09-16 17:35 | Day surgery (SDC) | payer OTHER, MEDICARE ==
[2024-09-16] MEDS: [UNRECOGNIZED DRUG - OTHER] IM ONE (17:39)
[2024-09-16 17:49] VITALS: BP 131/39; PULSE 80; RESP 20; TEMP 98.2
== END 2024-09-16 17:55 | disposition home or self-care (01) ==
LOC: JONCNONCHE 17:35 → J7W 17:35 → JONCNONCHE 17:55
PROVIDERS: ATTEND Internal Medicine Hematology & Oncology
PROC: 3E023GC Introduction of Other Therapeutic Substance into Muscle, Percutaneous Approach (ICD-10-PCS; principal; 2024-09-16)
DX: E83.111 Hemochromatosis due to repeated red blood cell transfusions (principal); K55.21 Angiodysplasia of colon with hemorrhage; C90.00 Multiple myeloma not having achieved remission; Z76.89 Persons encountering health services in other specified circumstances
CPT/HCPCS: 96372

== ENCOUNTER 2024-09-17 10:45 | Day surgery (SDC) | payer OTHER, MEDICARE ==
[2024-09-17] MEDS: [UNRECOGNIZED DRUG - OTHER] IM ONE (10:55)
[2024-09-17 17:07] VITALS: BP 149/61; PULSE 83; RESP 20; TEMP 98.1
== END 2024-09-17 11:30 | disposition home or self-care (01) ==
LOC: JONCCHEMO 10:45
PROVIDERS: ATTEND Internal Medicine Hematology & Oncology
PROC: 3E023GC Introduction of Other Therapeutic Substance into Muscle, Percutaneous Approach (ICD-10-PCS; principal; 2024-09-17)
DX: E83.111 Hemochromatosis due to repeated red blood cell transfusions (principal); K55.21 Angiodysplasia of colon with hemorrhage; C90.00 Multiple myeloma not having achieved remission; Z76.89 Persons encountering health services in other specified circumstances
CPT/HCPCS: 96372

== ENCOUNTER 2024-09-20 13:14 | Day surgery (SDC) | payer OTHER, MEDICARE ==
[2024-09-20] MEDS: [UNRECOGNIZED DRUG - OTHER] IM ONE (13:56)
[2024-09-20 14:27] VITALS: BP 119/57; PULSE 74; RESP 20; TEMP 97.5
== END 2024-09-20 14:50 | disposition home or self-care (01) ==
LOC: JONCNONCHE 13:14 → J7W 13:21 → JONCNONCHE 14:50
PROVIDERS: ATTEND Internal Medicine Hematology & Oncology
PROC: 3E023GC Introduction of Other Therapeutic Substance into Muscle, Percutaneous Approach (ICD-10-PCS; principal; 2024-09-20)
DX: E83.111 Hemochromatosis due to repeated red blood cell transfusions (principal); K55.21 Angiodysplasia of colon with hemorrhage; C90.00 Multiple myeloma not having achieved remission; Z76.89 Persons encountering health services in other specified circumstances
CPT/HCPCS: 96372

== ENCOUNTER 2024-09-21 17:30 | Day surgery (SDC) | payer OTHER, MEDICARE ==
[2024-09-21] MEDS: [UNRECOGNIZED DRUG - OTHER] IM ONE (17:40)
[2024-09-21 18:43] VITALS: BP 134/74; PULSE 99; RESP 20; TEMP 98.3
== END 2024-09-21 17:50 | disposition home or self-care (01) ==
LOC: JONCNONCHE 17:30 → J7W 17:36 → JONCNONCHE 17:50
PROVIDERS: ATTEND Internal Medicine Hematology & Oncology
PROC: 3E023GC Introduction of Other Therapeutic Substance into Muscle, Percutaneous Approach (ICD-10-PCS; principal; 2024-09-21)
DX: E83.111 Hemochromatosis due to repeated red blood cell transfusions (principal); K55.21 Angiodysplasia of colon with hemorrhage; C90.00 Multiple myeloma not having achieved remission; Z76.89 Persons encountering health services in other specified circumstances
CPT/HCPCS: 96372

== ENCOUNTER 2024-09-22 07:57 | Day surgery (SDC) | payer OTHER, MEDICARE ==
[2024-09-22 08:22] LABS: HEMATOCRIT 20.1 % (34.1-44.9); HEMOGLOBIN 6.6 g/dL (11.2-15.7); MCHC 32.8 g/dl (32.2-35.5); MEAN CELL VOLUME 86.6 fl (79.4-94.8); MEAN PLT VOLUME 10.7 fl (9.4-12.3); PLATELET COUNT 107 x10^3/uL (182-369); RDW 14.6 % (12.4-16.6)
[2024-09-22] MEDS: POTASSIUM CHLORIDE TABS 20 MEQ TABLET.ER (FP) PO ONE (13:41)
[2024-09-22] MEDS: FUROSEMIDE 40 MG TABLET (FP) PO ONE (13:42)
[2024-09-22] MEDS: [UNRECOGNIZED DRUG - OTHER] IM ONE (18:01)
[2024-09-22 18:14] LABS: HEMATOCRIT 27.2 % (34.1-44.9); MCHC 33.1 g/dl (32.2-35.5); MEAN CELL VOLUME 87.7 fl (79.4-94.8); MEAN PLT VOLUME 10.4 fl (9.4-12.3); PLATELET COUNT 103 x10^3/uL (182-369)
[2024-09-22 18:22] VITALS: BP 113/57; PULSE 73; RESP 16; TEMP 97.5
[2024-09-22] MEDS ORDERED: PORTA CATH FLUSH 10 ML IVPUSH PRN (18:22)
== END 2024-09-22 18:00 | disposition home or self-care (01) ==
LOC: JONCBLOOD 07:57 → J7W 07:59 → JONCBLOOD 18:00
PROVIDERS: ATTEND Internal Medicine Hematology & Oncology
PROC: 30243N1 Transfusion of Nonautologous Red Blood Cells into Central Vein, Percutaneous Approach (ICD-10-PCS; principal; 2024-09-22)
PROC: 3E023GC Introduction of Other Therapeutic Substance into Muscle, Percutaneous Approach (ICD-10-PCS; 2024-09-22)
DX: D64.9 Anemia, unspecified (principal); E83.111 Hemochromatosis due to repeated red blood cell transfusions; K55.21 Angiodysplasia of colon with hemorrhage; C90.00 Multiple myeloma not having achieved remission
CPT/HCPCS: 36415; 36430; 85025; 86850; 86900; 86901; 86922; 96372; P9058

== ENCOUNTER 2024-09-23 17:30 | Day surgery (SDC) | payer OTHER, MEDICARE ==
[2024-09-23] MEDS: [UNRECOGNIZED DRUG - OTHER] IM ONE (17:32)
[2024-09-23 17:44] VITALS: BP 136/67; PULSE 95; RESP 20; TEMP 97.8
== END 2024-09-23 18:07 | disposition home or self-care (01) ==
LOC: J7W 17:30 → JONCCHEMO 17:30
PROVIDERS: ATTEND Internal Medicine Hematology & Oncology
PROC: 3E013GC Introduction of Other Therapeutic Substance into Subcutaneous Tissue, Percutaneous Approach (ICD-10-PCS; principal; 2024-09-23)
DX: E83.111 Hemochromatosis due to repeated red blood cell transfusions (principal); K55.21 Angiodysplasia of colon with hemorrhage
CPT/HCPCS: 96372

== ENCOUNTER 2024-09-24 11:15 | Day surgery (SDC) | payer OTHER, MEDICARE ==
[2024-09-24] MEDS: [UNRECOGNIZED DRUG - OTHER] IM ONE (11:16)
[2024-09-24 15:04] VITALS: BP 153/50; PULSE 86; RESP 20; TEMP 97.7
== END 2024-09-24 11:30 | disposition home or self-care (01) ==
LOC: JONCNONCHE 11:15
PROVIDERS: ATTEND Internal Medicine Hematology & Oncology
PROC: 3E013GC Introduction of Other Therapeutic Substance into Subcutaneous Tissue, Percutaneous Approach (ICD-10-PCS; principal; 2024-09-24)
DX: E83.111 Hemochromatosis due to repeated red blood cell transfusions (principal); K55.21 Angiodysplasia of colon with hemorrhage
CPT/HCPCS: 96372

== ENCOUNTER 2024-09-27 10:51 | Day surgery (SDC) | payer OTHER, MEDICARE ==
[2024-09-27] MEDS: [UNRECOGNIZED DRUG - OTHER] IM ONE (11:11)
[2024-09-27 13:58] VITALS: BP 118/69; PULSE 74; RESP 18; TEMP 97.4
== END 2024-09-27 11:30 | disposition home or self-care (01) ==
LOC: JONCCHEMO 10:51
PROVIDERS: ATTEND Internal Medicine Hematology & Oncology
PROC: 3E013GC Introduction of Other Therapeutic Substance into Subcutaneous Tissue, Percutaneous Approach (ICD-10-PCS; principal; 2024-09-27)
DX: E83.111 Hemochromatosis due to repeated red blood cell transfusions (principal); K55.21 Angiodysplasia of colon with hemorrhage
CPT/HCPCS: 96372

== ENCOUNTER 2024-09-28 17:25 | Day surgery (SDC) | payer OTHER, MEDICARE ==
[2024-09-28] MEDS: [UNRECOGNIZED DRUG - OTHER] IM ONE (17:30)
[2024-09-28 17:38] VITALS: BP 129/89; PULSE 94; RESP 20; TEMP 97.4
== END 2024-09-28 17:44 | disposition home or self-care (01) ==
LOC: J7W 17:25 → JONCNONCHE 17:25
PROVIDERS: ATTEND Internal Medicine Hematology & Oncology
PROC: 3E013GC Introduction of Other Therapeutic Substance into Subcutaneous Tissue, Percutaneous Approach (ICD-10-PCS; principal; 2024-09-28)
DX: E83.111 Hemochromatosis due to repeated red blood cell transfusions (principal); K55.21 Angiodysplasia of colon with hemorrhage
CPT/HCPCS: 96372

== ENCOUNTER 2024-09-29 17:30 | Day surgery (SDC) | payer OTHER, MEDICARE ==
[2024-09-29] MEDS: [UNRECOGNIZED DRUG - OTHER] IM ONE (17:27)
[2024-09-29 18:26] VITALS: BP 102/48; PULSE 86; RESP 20; TEMP 97.6
== END 2024-09-29 17:50 | disposition home or self-care (01) ==
LOC: JONCNONCHE 17:30 → J7W 17:30 → JONCNONCHE 17:50
PROVIDERS: ATTEND Internal Medicine Hematology & Oncology
PROC: 3E013GC Introduction of Other Therapeutic Substance into Subcutaneous Tissue, Percutaneous Approach (ICD-10-PCS; principal; 2024-09-29)
DX: E83.111 Hemochromatosis due to repeated red blood cell transfusions (principal); K55.21 Angiodysplasia of colon with hemorrhage
CPT/HCPCS: 96372

== ENCOUNTER 2024-09-30 17:30 | Day surgery (SDC) | payer OTHER, MEDICARE ==
[2024-09-30] MEDS: [UNRECOGNIZED DRUG - OTHER] IM ONE (17:28)
[2024-09-30 17:57] VITALS: BP 124/57; PULSE 95; RESP 18; TEMP 97.7
== END 2024-09-30 17:45 | disposition home or self-care (01) ==
LOC: J7W 17:30 → JONCNONCHE 17:30
PROVIDERS: ATTEND Internal Medicine Hematology & Oncology
PROC: 3E013GC Introduction of Other Therapeutic Substance into Subcutaneous Tissue, Percutaneous Approach (ICD-10-PCS; principal; 2024-09-30)
DX: H26.9 Unspecified cataract (principal)
CPT/HCPCS: 96372

== ENCOUNTER 2024-10-01 11:00 | Day surgery (SDC) | payer OTHER, MEDICARE ==
[2024-10-01] MEDS: [UNRECOGNIZED DRUG - OTHER] IM ONE (11:16)
[2024-10-01 11:38] LABS: HEMATOCRIT 24.4 % (34.1-44.9); HEMOGLOBIN 7.9 g/dL (11.2-15.7); MCHC 32.4 g/dl (32.2-35.5); MEAN PLT VOLUME 11.2 fl (9.4-12.3); PLATELET COUNT 102 x10^3/uL (182-369)
[2024-10-01 12:11] LABS: CHLORIDE 105 mmol/L (98-107); SODIUM 141 mmol/L (136-145)
[2024-10-01 12:14] LABS: ALBUMIN 2.6 g/dl (3.4-5.0); ANION GAP 7 mmol/L (4-13); BLOOD UREA NITROGEN 43.7 mg/dL (7-18); CO2 30 mmol/L (21-32); GLUCOSE,RANDOM 66 mg/dL (74-106); MAGNESIUM 1.8 mg/dL (1.8-2.4)
[2024-10-01 12:16] LABS: CREATININE 1.5 mg/dL (0.55-1.3); URIC ACID 5.6 mg/dL (2.6-7.2)
[2024-10-01 12:17] LABS: SGOT/AST 112 U/L (15-37); SGPT/ALT 146 U/L (13-61)
[2024-10-01 12:18] LABS: BILIRUBIN,TOTAL 1.2 mg/dL (0.2-1); TOT PROT 5.5 g/dl (6.4-8.2)
[2024-10-01 12:19] LABS: ALK PHOS 470 U/L (45-117)
[2024-10-01 12:37] LABS: LDH 289 U/L (84-246)
[2024-10-01 15:53] VITALS: BP 98/41; PULSE 64; RESP 18; TEMP 97.5
[2024-10-05 00:06] LABS: CYCLOSPORINE TROUGH 36 ng/mL (100-400)
== END 2024-10-01 11:30 | disposition home or self-care (01) ==
LOC: JONCNONCHE 11:00
PROVIDERS: ATTEND Internal Medicine Hematology & Oncology
PROC: 3E023GC Introduction of Other Therapeutic Substance into Muscle, Percutaneous Approach (ICD-10-PCS; principal; 2024-10-01)
DX: E83.111 Hemochromatosis due to repeated red blood cell transfusions (principal); K55.21 Angiodysplasia of colon with hemorrhage; C90.00 Multiple myeloma not having achieved remission; Z76.89 Persons encountering health services in other specified circumstances
CPT/HCPCS: 36415; 80053; 80158; 83615; 83735; 84550; 85025; 96372

== ENCOUNTER 2024-10-06 08:02 | Day surgery (SDC) | payer OTHER, MEDICARE ==
[2024-10-06 08:31] LABS: HEMATOCRIT 22.1 % (34.1-44.9); HEMOGLOBIN 7.1 g/dL (11.2-15.7); MCHC 32.1 g/dl (32.2-35.5); MEAN CELL VOLUME 93.6 fl (79.4-94.8); MEAN PLT VOLUME 10.3 fl (9.4-12.3); PLATELET COUNT 105 x10^3/uL (182-369); RDW 17.7 % (12.4-16.6)
[2024-10-06] MEDS: FUROSEMIDE 40 MG TABLET (FP) PO ONE (14:23)
[2024-10-06 15:50] VITALS: BP 113/51; PULSE 78; RESP 20; TEMP 97.6
[2024-10-06] MEDS: [UNRECOGNIZED DRUG - OTHER] IM ONE (18:23)
[2024-10-06] MEDS: PORTA CATH FLUSH 10 ML IVPUSH PRN (18:23)
[2024-10-06 19:50] LABS: ABSOLUTE IMMATURE GRANULOCYTES 0.36 x10^3/uL (0.0-0.031); BASOPHILS # 0.01 x10^3/uL (0.01-0.08); EOSINOPHIL % 0.2 % (0.7-5.8); EOSINOPHILS # 0.01 x10^3/uL (0.04-0.36); HEMATOCRIT 28.1 % (34.1-44.9); HEMOGLOBIN 9.2 g/dL (11.2-15.7); MCHC 32.7 g/dl (32.2-35.5); MEAN CELL VOLUME 90.6 fl (79.4-94.8); MEAN PLT VOLUME 10.6 fl (9.4-12.3); MONOCYTE % 4.3 % (4.7-12.5); PLATELET COUNT 102 x10^3/uL (182-369); RDW 17.1 % (12.4-16.6)
== END 2024-10-06 19:30 | disposition home or self-care (01) ==
LOC: JONCNONCHE 08:02
PROVIDERS: ATTEND Internal Medicine Hematology & Oncology
PROC: 30233N1 Transfusion of Nonautologous Red Blood Cells into Peripheral Vein, Percutaneous Approach (ICD-10-PCS; principal; 2024-10-06)
PROC: 3E013GC Introduction of Other Therapeutic Substance into Subcutaneous Tissue, Percutaneous Approach (ICD-10-PCS; 2024-10-06)
DX: K55.21 Angiodysplasia of colon with hemorrhage (principal); E83.111 Hemochromatosis due to repeated red blood cell transfusions
CPT/HCPCS: 36415; 36430; 85025; 86850; 86900; 86901; 86922; 96372; P9038; P9058

== ENCOUNTER 2024-10-07 17:15 | Day surgery (SDC) | payer OTHER, MEDICARE ==
[2024-10-07] MEDS: [UNRECOGNIZED DRUG - OTHER] IM ONE (17:21)
[2024-10-07 17:24] VITALS: BP 141/68; PULSE 85; RESP 20; TEMP 97.1
== END 2024-10-07 17:30 | disposition home or self-care (01) ==
LOC: JONCNONCHE 17:15 → J7W 17:23 → JONCNONCHE 17:30
PROVIDERS: ATTEND Internal Medicine Hematology & Oncology
PROC: 3E013GC Introduction of Other Therapeutic Substance into Subcutaneous Tissue, Percutaneous Approach (ICD-10-PCS; principal; 2024-10-07)
DX: E83.111 Hemochromatosis due to repeated red blood cell transfusions (principal); K55.21 Angiodysplasia of colon with hemorrhage
CPT/HCPCS: 96372

== ENCOUNTER 2024-10-13 17:31 | Day surgery (SDC) | payer OTHER, MEDICARE ==
[2024-10-13] MEDS: [UNRECOGNIZED DRUG - OTHER] IM ONE (17:36)
[2024-10-13 17:39] VITALS: BP 137/70; PULSE 82; RESP 18; TEMP 97.6
== END 2024-10-13 17:41 | disposition home or self-care (01) ==
LOC: JONCNONCHE 17:31 → J7W 17:31 → JONCNONCHE 17:41
PROVIDERS: ATTEND Internal Medicine Hematology & Oncology
PROC: 3E013GC Introduction of Other Therapeutic Substance into Subcutaneous Tissue, Percutaneous Approach (ICD-10-PCS; principal; 2024-10-13)
DX: E83.111 Hemochromatosis due to repeated red blood cell transfusions (principal); K55.21 Angiodysplasia of colon with hemorrhage
CPT/HCPCS: 96372

== ENCOUNTER 2024-10-14 17:30 | Day surgery (SDC) | payer OTHER, MEDICARE ==
[2024-10-14] MEDS: [UNRECOGNIZED DRUG - OTHER] IM ONE (17:38)
[2024-10-14 17:47] VITALS: BP 126/69; PULSE 81; RESP 20; TEMP 97.5
== END 2024-10-14 17:51 | disposition home or self-care (01) ==
LOC: JONCNONCHE 17:30 → J7W 17:32 → JONCNONCHE 17:51
PROVIDERS: ATTEND Internal Medicine Hematology & Oncology
PROC: 3E013GC Introduction of Other Therapeutic Substance into Subcutaneous Tissue, Percutaneous Approach (ICD-10-PCS; principal; 2024-10-14)
DX: E83.111 Hemochromatosis due to repeated red blood cell transfusions (principal); K55.21 Angiodysplasia of colon with hemorrhage
CPT/HCPCS: 96372

== ENCOUNTER 2024-10-15 11:40 | Day surgery (SDC) | payer OTHER, MEDICARE ==
[2024-10-15] MEDS: [UNRECOGNIZED DRUG - OTHER] IM ONE (11:48)
[2024-10-15 13:21] VITALS: BP 132/60; PULSE 74; RESP 18; TEMP 97.7
== END 2024-10-15 12:00 | disposition home or self-care (01) ==
LOC: JONCNONCHE 11:40
PROVIDERS: ATTEND Internal Medicine Hematology & Oncology
PROC: 3E013GC Introduction of Other Therapeutic Substance into Subcutaneous Tissue, Percutaneous Approach (ICD-10-PCS; principal; 2024-10-15)
DX: E83.111 Hemochromatosis due to repeated red blood cell transfusions (principal); K55.21 Angiodysplasia of colon with hemorrhage
CPT/HCPCS: 96372

== ENCOUNTER 2024-10-18 12:30 | Day surgery (SDC) | payer OTHER, MEDICARE ==
[2024-10-18] MEDS: [UNRECOGNIZED DRUG - OTHER] IM ONE (12:31)
[2024-10-18 15:24] VITALS: BP 126/63; PULSE 75; RESP 20; TEMP 97.5
== END 2024-10-18 13:00 | disposition home or self-care (01) ==
LOC: JONCNONCHE 12:30
PROVIDERS: ATTEND Internal Medicine Hematology & Oncology
PROC: 3E013GC Introduction of Other Therapeutic Substance into Subcutaneous Tissue, Percutaneous Approach (ICD-10-PCS; principal; 2024-10-18)
DX: E83.111 Hemochromatosis due to repeated red blood cell transfusions (principal); K55.21 Angiodysplasia of colon with hemorrhage
CPT/HCPCS: 96372

== ENCOUNTER 2024-10-24 13:50 | Inpatient (IN) | payer OTHER, MEDICARE ==
[2024-10-24] MEDS: SODIUM CHLORIDE 0.9% 500 ML INFUS.BAG IV ONE (15:26)
[2024-10-24 15:38] LABS: HEMATOCRIT 28.7 % (34.1-44.9); HEMOGLOBIN 9.1 g/dL (11.2-15.7); MCHC 31.7 g/dl (32.2-35.5); MEAN CELL VOLUME 95.7 fl (79.4-94.8); PLATELET COUNT 101 x10^3/uL (182-369); RDW 20.6 % (12.4-16.6)
[2024-10-24 15:46] LABS: INR 1.01 (0.83-1.09); PROTHROMBIN TIME (PATIENT) 11.1 SEC (9.7-13.0)
[2024-10-24 15:48] LABS: ACTIVATED PTT 32.9 SECONDS (25.2-36.5)
[2024-10-24 15:58] LABS: POTASSIUM 5.1 mmol/L (3.5-5.1)
[2024-10-24 16:00] LABS: CALCIUM 10.8 mg/dL (8.5-10.1)
[2024-10-24 16:01] LABS: ALBUMIN 2.8 g/dl (3.4-5.0); BLOOD UREA NITROGEN 30.4 mg/dL (7-18); MAGNESIUM 2.8 mg/dL (1.8-2.4)
[2024-10-24 16:04] LABS: CREATININE 1.8 mg/dL (0.55-1.3)
[2024-10-24 16:05] LABS: BILIRUBIN,TOTAL 2.1 mg/dL (0.2-1); TOT PROT 6.4 g/dl (6.4-8.2)
[2024-10-24] MEDS ORDERED: ACETAMINOPHEN INJECTION 100 ML ONE (17:43)
[2024-10-24] MEDS: ACETAMINOPHEN 1000 MG/100 ML BAG IVPB ONE (17:54)
[2024-10-24 18:57] LABS: EPI CELLS 12 /uL (0-25.1); HYALINE CASTS 0 /uL (0-3.1); PH,URINE 7.5 (5.0-8.0); URINE APPEARANCE CLEAR; URINE BACTERIA 160 /uL (0-1359); URINE BILIRUBIN NEGATIVE (NEGATIVE); URINE COLOR YELLOW; URINE GLUCOSE (UA) NEGATIVE (NEGATIVE); URINE KETONE NEGATIVE (NEGATIVE); URINE LEUK ESTERASE NEGATIVE (NEGATIVE); URINE NITRITE NEGATIVE (NEGATIVE); URINE PROTEIN 1+ (NEGATIVE); URINE RBC 16 /uL (0-23.9); URINE WBC 11 /uL (0-25.8)
[2024-10-25] MEDS: METOCLOPRAMIDE HCL INJECTION 10 MG/2 ML VIAL IVPUSH ONE (02:00)
[2024-10-25] MEDS: PRAMIPEXOLE DIHYDROCHLORIDE 0.25 MG TABLET PO SCH (06:44)
[2024-10-25 07:32] LABS: ABSOLUTE IMMATURE GRANULOCYTES 0.18 x10^3/uL (0.0-0.031); EOSINOPHIL % 0.3 % (0.7-5.8); EOSINOPHILS # 0.01 x10^3/uL (0.04-0.36); HEMATOCRIT 25.4 % (34.1-44.9); MCHC 31.5 g/dl (32.2-35.5); MEAN CELL VOLUME 96.6 fl (79.4-94.8); MEAN PLT VOLUME 10.2 fl (9.4-12.3); MONOCYTE % 7.8 % (4.7-12.5); PLATELET COUNT 93 x10^3/uL (182-369); RDW 21.3 % (12.4-16.6)
[2024-10-25 07:53] LABS: POTASSIUM 4.4 mmol/L (3.5-5.1)
[2024-10-25 08:00] LABS: ALBUMIN 2.3 g/dl (3.4-5.0); BLOOD UREA NITROGEN 23.7 mg/dL (7-18)
[2024-10-25 08:03] LABS: CALCIUM 9.1 mg/dL (8.5-10.1); CREATININE 1.5 mg/dL (0.55-1.3)
[2024-10-25 08:04] LABS: BILIRUBIN,TOTAL 2.1 mg/dL (0.2-1); TOT PROT 5.5 g/dl (6.4-8.2)
[2024-10-25] MEDS: predniSONE 10 MG TABLET (UD) PO SCH (10:48)
[2024-10-25] MEDS: PANTOPRAZOLE 40 MG TABLET PO SCH (10:48)
[2024-10-25] MEDS: CEFTRIAXONE 1 G/50 ML PREMIX 50 ML IVPB SCH (18:27)
[2024-10-26] MEDS: PRAMIPEXOLE DIHYDROCHLORIDE 0.5 MG TABLET PO SCH (06:21)
[2024-10-26 07:46] LABS: ABSOLUTE IMMATURE GRANULOCYTES 0.18 x10^3/uL (0.0-0.031); BASOPHILS # 0.01 x10^3/uL (0.01-0.08); EOSINOPHIL % 0.3 % (0.7-5.8); EOSINOPHILS # 0.01 x10^3/uL (0.04-0.36); HEMATOCRIT 25.3 % (34.1-44.9); HEMOGLOBIN 7.9 g/dL (11.2-15.7); MCHC 31.2 g/dl (32.2-35.5); MEAN CELL VOLUME 98.1 fl (79.4-94.8); MONOCYTE # 0.16 x10^3/uL (0.24-0.86); MONOCYTE % 4.1 % (4.7-12.5); PLATELET COUNT 121 x10^3/uL (182-369); RDW 21.3 % (12.4-16.6)
[2024-10-26 08:05] LABS: POTASSIUM 4.1 mmol/L (3.5-5.1)
[2024-10-26 08:12] LABS: ALBUMIN 2.2 g/dl (3.4-5.0); CALCIUM 9.3 mg/dL (8.5-10.1)
[2024-10-26 08:13] LABS: BLOOD UREA NITROGEN 26.5 mg/dL (7-18)
[2024-10-26 08:16] LABS: CREATININE 1.7 mg/dL (0.55-1.3); PHOSPHOROUS 3.5 mg/dL (2.5-4.9)
[2024-10-26 08:17] LABS: BILIRUBIN,TOTAL 1.3 mg/dL (0.2-1); TOT PROT 5.4 g/dl (6.4-8.2)
[2024-10-26 14:53] VITALS: BMI 23.6
[2024-10-26] MEDS ORDERED: ASPIRIN 81 MG CHEWABLE TABLETS ONE (17:33)
[2024-10-26] MEDS: ASPIRIN 81 MG CHEWABLE TABLETS PO ONE (17:45)
[2024-10-26 17:46] LABS: HEMATOCRIT 25.4 % (34.1-44.9); MCHC 31.5 g/dl (32.2-35.5); MEAN CELL VOLUME 96.6 fl (79.4-94.8); PLATELET COUNT 113 x10^3/uL (182-369); RDW 21.5 % (12.4-16.6)
[2024-10-26 17:53] LABS: INR 1.14 (0.83-1.09); PROTHROMBIN TIME (PATIENT) 12.5 SEC (9.7-13.0)
[2024-10-26 21:19] LABS: BILIRUBIN,DIRECT 0.8 mg/dL (0.0-0.2)
[2024-10-27 07:54] LABS: HEMATOCRIT 24.6 % (34.1-44.9); HEMOGLOBIN 7.5 g/dL (11.2-15.7); MCHC 30.5 g/dl (32.2-35.5); MEAN CELL VOLUME 97.6 fl (79.4-94.8); MEAN PLT VOLUME 10.9 fl (9.4-12.3); PLATELET COUNT 118 x10^3/uL (182-369); RDW 21.2 % (12.4-16.6)
[2024-10-27 08:26] LABS: ALBUMIN 2.2 g/dl (3.4-5.0); BLOOD UREA NITROGEN 35.3 mg/dL (7-18); CALCIUM 8.7 mg/dL (8.5-10.1)
[2024-10-27 08:30] LABS: CREATININE 1.6 mg/dL (0.55-1.3)
[2024-10-27 08:31] LABS: BILIRUBIN,TOTAL 0.8 mg/dL (0.2-1); TOT PROT 5.4 g/dl (6.4-8.2)
[2024-10-28 09:06] LABS: HEMATOCRIT 24.8 % (34.1-44.9); HEMOGLOBIN 7.9 g/dL (11.2-15.7); MCHC 31.9 g/dl (32.2-35.5); MEAN CELL VOLUME 96.1 fl (79.4-94.8); PLATELET COUNT 132 x10^3/uL (182-369); RDW 20.4 % (12.4-16.6)
[2024-10-28 09:24] LABS: POTASSIUM 4.2 mmol/L (3.5-5.1)
[2024-10-28 09:26] LABS: CALCIUM 8.2 mg/dL (8.5-10.1)
[2024-10-28 09:27] LABS: ALBUMIN 2.6 g/dl (3.4-5.0); BLOOD UREA NITROGEN 36.2 mg/dL (7-18)
[2024-10-28 09:30] LABS: CREATININE 1.4 mg/dL (0.55-1.3)
[2024-10-28 09:31] LABS: BILIRUBIN,TOTAL 0.9 mg/dL (0.2-1); TOT PROT 6.1 g/dl (6.4-8.2)
[2024-10-28] MEDS: predniSONE 10 MG TABLET (UD) PO SCH (21:58)
[2024-10-28] MEDS: MIRTAZAPINE 15 MG TABLET (FP) PO SCH (21:58)
[2024-10-29] MEDS: LEVOTHYROXINE 100 MCG, LEVOTHYROXINE 75 MCG PO SCH (06:09)
[2024-10-29] MEDS ORDERED: LEVOTHYROXINE NA 150 MCG TABLET PO SCH (07:00)
[2024-10-29 07:05] LABS: ABSOLUTE IMMATURE GRANULOCYTES 0.26 x10^3/uL (0.0-0.031); BASOPHILS # 0.01 x10^3/uL (0.01-0.08); HEMATOCRIT 22.6 % (34.1-44.9); HEMOGLOBIN 7.2 g/dL (11.2-15.7); MCHC 31.9 g/dl (32.2-35.5); MEAN CELL VOLUME 95.8 fl (79.4-94.8); MONOCYTE # 0.23 x10^3/uL (0.24-0.86); MONOCYTE % 5.8 % (4.7-12.5); PLATELET COUNT 94 x10^3/uL (182-369); RDW 20.9 % (12.4-16.6)
[2024-10-29 07:24] LABS: POTASSIUM 4.5 mmol/L (3.5-5.1)
[2024-10-29 07:28] LABS: BLOOD UREA NITROGEN 36.1 mg/dL (7-18); CALCIUM 7.6 mg/dL (8.5-10.1); INR 1.07 (0.83-1.09); PROTHROMBIN TIME (PATIENT) 11.8 SEC (9.7-13.0)
[2024-10-29 07:30] LABS: ALBUMIN 2.5 g/dl (3.4-5.0)
[2024-10-29 07:31] LABS: CREATININE 1.3 mg/dL (0.55-1.3)
[2024-10-29 07:33] LABS: BILIRUBIN,TOTAL 0.7 mg/dL (0.2-1); TOT PROT 5.9 g/dl (6.4-8.2)
[2024-10-29] MEDS: SOLIFENACIN SUCCINATE 5 MG TAB PO SCH (09:43)
[2024-10-29] MEDS: TORSEMIDE 20 MG TABLET (FP) PO SCH (09:44)
[2024-10-29] MEDS: ALLOPURINOL 100 MG TABLET (FP) PO SCH (09:44)
[2024-10-29 17:45] VITALS: RESP 18
[2024-10-29] MEDS: PRAMIPEXOLE DIHYDROCHLORIDE 0.5 MG TABLET PO SCH (22:25)
[2024-10-30 06:38] LABS: MEAN CELL VOLUME 94.2 fl (79.4-94.8)
[2024-10-30 06:39] LABS: HEMATOCRIT 24.5 % (34.1-44.9); MCHC 32.7 g/dl (32.2-35.5); PLATELET COUNT 116 x10^3/uL (182-369)
[2024-10-30 06:58] LABS: POTASSIUM 3.9 mmol/L (3.5-5.1)
[2024-10-30 07:02] LABS: ALBUMIN 2.4 g/dl (3.4-5.0); BLOOD UREA NITROGEN 42.3 mg/dL (7-18); CALCIUM 7.4 mg/dL (8.5-10.1)
[2024-10-30 07:06] LABS: CREATININE 1.5 mg/dL (0.55-1.3)
[2024-10-30 07:07] LABS: BILIRUBIN,TOTAL 0.9 mg/dL (0.2-1); TOT PROT 5.4 g/dl (6.4-8.2)
[2024-10-30] MEDS: CEFTRIAXONE 1 G/50 ML PREMIX 50 ML IVPB SCH (09:13)
[2024-10-30] MEDS: PANTOPRAZOLE 40 MG TABLET PO SCH (09:13)
[2024-10-30 16:36] VITALS: BP 115/48; PULSE 57; TEMP 97.7
== END 2024-10-30 16:45 | disposition home or self-care (01) | DRG 641 ==
LOC: JER 13:50 → JERBED 17:38 → J7W 22:47 → J4W 10-26 18:18
PROVIDERS: ADMIT Family Medicine; ATTEND Family Medicine
PROC: 0DJ08ZZ Inspection of Upper Intestinal Tract, Via Natural or Artificial Opening Endoscopic (ICD-10-PCS; principal; 2024-10-29 11:30)
DX: E87.8 Other disorders of electrolyte and fluid balance, not elsewhere classified (principal); C90.00 Multiple myeloma not having achieved remission; D61.818 Other pancytopenia; N17.9 Acute kidney failure, unspecified; E83.52 Hypercalcemia; E83.41 Hypermagnesemia; E78.5 Hyperlipidemia, unspecified; D64.9 Anemia, unspecified; E03.9 Hypothyroidism, unspecified; I25.10 Atherosclerotic heart disease of native coronary artery without angina pectoris; R50.9 Fever, unspecified; I12.9 Hypertensive chronic kidney disease with stage 1 through stage 4 chronic kidney disease, or unspecified chronic kidney disease; N18.9 Chronic kidney disease, unspecified; E11.22 Type 2 diabetes mellitus with diabetic chronic kidney disease; K57.90 Diverticulosis of intestine, part unspecified, without perforation or abscess without bleeding; H40.9 Unspecified glaucoma; R79.89 Other specified abnormal findings of blood chemistry; G25.81 Restless legs syndrome; R07.89 Other chest pain; F41.9 Anxiety disorder, unspecified; Z88.0 Allergy status to penicillin; Z96.642 Presence of left artificial hip joint
CPT/HCPCS: 36415; 36430; 71045-TC-FY; 74181-TC; 76705-TC; 80053; 81003; 82248; 82550; 82728; 82962; 83550; 83735; 84080; 84100; 84466; 84484; 85025; 85027; 85610; 85730; 86850; 86900; 86901; 86922; 87040; 87086; 87186; 93005; 93010; 93306-TC; 96372; 97116-GP; 97161-GP; 99285-25; P9038; P9058

== ENCOUNTER 2024-11-08 11:24 | Day surgery (SDC) | payer OTHER, MEDICARE ==
[2024-11-08] MEDS: [UNRECOGNIZED DRUG - OTHER] IM ONE (11:36)
[2024-11-08 17:46] VITALS: BP 109/54; PULSE 68; RESP 20; TEMP 97.4
== END 2024-11-08 11:50 | disposition home or self-care (01) ==
LOC: JONCNONCHE 11:24 → J7W 11:24 → JONCNONCHE 11:50
PROVIDERS: ATTEND Internal Medicine Hematology & Oncology
PROC: 3E013GC Introduction of Other Therapeutic Substance into Subcutaneous Tissue, Percutaneous Approach (ICD-10-PCS; principal; 2024-11-08)
DX: E83.111 Hemochromatosis due to repeated red blood cell transfusions (principal); K55.21 Angiodysplasia of colon with hemorrhage
CPT/HCPCS: 96372

== ENCOUNTER 2024-11-09 17:35 | Day surgery (SDC) | payer OTHER, MEDICARE ==
[2024-11-09] MEDS: [UNRECOGNIZED DRUG - OTHER] IM ONE (17:34)
[2024-11-09 17:44] VITALS: BP 130/49; PULSE 66; RESP 20; TEMP 97.4
== END 2024-11-09 17:49 | disposition home or self-care (01) ==
LOC: JONCCHEMO 17:35 → J7W 17:35 → JONCCHEMO 17:49
PROVIDERS: ATTEND Internal Medicine Hematology & Oncology
PROC: 3E013GC Introduction of Other Therapeutic Substance into Subcutaneous Tissue, Percutaneous Approach (ICD-10-PCS; principal; 2024-11-09)
DX: E83.111 Hemochromatosis due to repeated red blood cell transfusions (principal); K55.21 Angiodysplasia of colon with hemorrhage
CPT/HCPCS: 96372

== ENCOUNTER 2024-11-10 14:20 | Day surgery (SDC) | payer OTHER, MEDICARE ==
[2024-11-10] MEDS: [UNRECOGNIZED DRUG - OTHER] IM ONE (14:27)
[2024-11-10 14:50] VITALS: BP 118/48; PULSE 65; RESP 20; TEMP 97.5
== END 2024-11-10 14:45 | disposition home or self-care (01) ==
LOC: JONCNONCHE 14:20
PROVIDERS: ATTEND Internal Medicine Hematology & Oncology
PROC: 3E013GC Introduction of Other Therapeutic Substance into Subcutaneous Tissue, Percutaneous Approach (ICD-10-PCS; principal; 2024-11-10)
DX: E83.111 Hemochromatosis due to repeated red blood cell transfusions (principal); K55.21 Angiodysplasia of colon with hemorrhage

== ENCOUNTER 2024-11-11 17:30 | Day surgery (SDC) | payer OTHER, MEDICARE ==
[2024-11-11] MEDS: [UNRECOGNIZED DRUG - OTHER] IM ONE (17:36)
[2024-11-11 17:43] VITALS: BP 144/40; PULSE 58; RESP 20; TEMP 97.4
== END 2024-11-11 17:47 | disposition home or self-care (01) ==
LOC: JONCNONCHE 17:30 → J7W 17:42 → JONCNONCHE 17:47
PROVIDERS: ATTEND Internal Medicine Hematology & Oncology
DX: E83.111 Hemochromatosis due to repeated red blood cell transfusions (principal); K55.21 Angiodysplasia of colon with hemorrhage
CPT/HCPCS: 96372

== ENCOUNTER 2024-11-22 13:25 | Day surgery (SDC) | payer OTHER, MEDICARE ==
[2024-11-22] MEDS: [UNRECOGNIZED DRUG - OTHER] IM ONE (13:38)
[2024-11-22 16:03] VITALS: BP 145/47; PULSE 77; RESP 20; TEMP 97.5
== END 2024-11-22 13:45 | disposition home or self-care (01) ==
LOC: JONCNONCHE 13:25 → J7W 14:24
PROVIDERS: ATTEND Internal Medicine Hematology & Oncology
PROC: 3E013GC Introduction of Other Therapeutic Substance into Subcutaneous Tissue, Percutaneous Approach (ICD-10-PCS; principal; 2024-11-22)
DX: E83.111 Hemochromatosis due to repeated red blood cell transfusions (principal); K55.21 Angiodysplasia of colon with hemorrhage
CPT/HCPCS: 96372

== ENCOUNTER 2024-12-02 11:53 | Day surgery (SDC) | payer OTHER, MEDICARE ==
[~2024-12-02 11:53] MED LIST changes: -FUROSEMIDE 40 MG TABLET (FP) PO ONE; -POTASSIUM CHLORIDE TABS 20 MEQ TABLET.ER (FP) PO ONE; +[UNRECOGNIZED DRUG - OTHER] IM SCH
[2024-12-02] MEDS: [UNRECOGNIZED DRUG - OTHER] IM ONE (12:02)
[2024-12-02 15:11] VITALS: BP 121/60; PULSE 91; RESP 18; TEMP 98.1
== END 2024-12-02 12:30 | disposition home or self-care (01) ==
LOC: JONCNONCHE 11:53 → J7W 12:01 → JONCNONCHE 12:30
PROVIDERS: ATTEND Internal Medicine Hematology & Oncology
PROC: 3E013GC Introduction of Other Therapeutic Substance into Subcutaneous Tissue, Percutaneous Approach (ICD-10-PCS; principal; 2024-12-02)
DX: E83.111 Hemochromatosis due to repeated red blood cell transfusions (principal); K55.21 Angiodysplasia of colon with hemorrhage
CPT/HCPCS: 96372

== ENCOUNTER 2024-12-03 12:15 | Day surgery (SDC) | payer OTHER, MEDICARE ==
[2024-12-03] MEDS: [UNRECOGNIZED DRUG - OTHER] IM ONE (12:24)
[2024-12-03 13:53] VITALS: BP 114/53; PULSE 94; RESP 20; TEMP 97.7
== END 2024-12-03 12:35 | disposition home or self-care (01) ==
LOC: JONCNONCHE 12:15
PROVIDERS: ATTEND Internal Medicine Hematology & Oncology
PROC: 3E013GC Introduction of Other Therapeutic Substance into Subcutaneous Tissue, Percutaneous Approach (ICD-10-PCS; principal; 2024-12-03)
DX: E83.111 Hemochromatosis due to repeated red blood cell transfusions (principal); K55.21 Angiodysplasia of colon with hemorrhage
CPT/HCPCS: 96372

== ENCOUNTER 2024-12-06 11:15 | Day surgery (SDC) | payer OTHER, MEDICARE ==
[2024-12-06] MEDS: [UNRECOGNIZED DRUG - OTHER] IM ONE (11:17)
[2024-12-06 11:28] VITALS: BP 112/48; PULSE 84; RESP 20; TEMP 97.6
== END 2024-12-06 11:30 | disposition home or self-care (01) ==
LOC: JONCNONCHE 11:15
PROVIDERS: ATTEND Internal Medicine Hematology & Oncology
PROC: 3E013GC Introduction of Other Therapeutic Substance into Subcutaneous Tissue, Percutaneous Approach (ICD-10-PCS; principal; 2024-12-06)
DX: E83.111 Hemochromatosis due to repeated red blood cell transfusions (principal); K55.21 Angiodysplasia of colon with hemorrhage
CPT/HCPCS: 96372

== ENCOUNTER 2024-12-07 17:32 | Day surgery (SDC) | payer OTHER, MEDICARE ==
[2024-12-07] MEDS: [UNRECOGNIZED DRUG - OTHER] IM ONE (17:43)
[2024-12-07 18:17] VITALS: BP 137/67; PULSE 52; RESP 18; TEMP 97.8
== END 2024-12-07 18:00 | disposition home or self-care (01) ==
LOC: JONCNONCHE 17:32 → J7W 17:33 → JONCNONCHE 18:00
PROVIDERS: ATTEND Internal Medicine Hematology & Oncology
PROC: 3E023GC Introduction of Other Therapeutic Substance into Muscle, Percutaneous Approach (ICD-10-PCS; principal; 2024-12-07)
DX: E83.111 Hemochromatosis due to repeated red blood cell transfusions (principal); K55.21 Angiodysplasia of colon with hemorrhage

== ENCOUNTER 2024-12-08 17:00 | Day surgery (SDC) | payer OTHER, MEDICARE ==
[2024-12-08] MEDS: [UNRECOGNIZED DRUG - OTHER] IM ONE (17:03)
[2024-12-08 18:15] VITALS: BP 123/40; PULSE 59; RESP 18; TEMP 97
[2024-12-10] MEDS ORDERED: [UNRECOGNIZED DRUG - OTHER] IM ONE (10:00)
== END 2024-12-08 17:15 | disposition home or self-care (01) ==
LOC: JONCNONCHE 17:00
PROVIDERS: ATTEND Internal Medicine Hematology & Oncology
PROC: 3E023GC Introduction of Other Therapeutic Substance into Muscle, Percutaneous Approach (ICD-10-PCS; principal; 2024-12-08)
DX: E83.111 Hemochromatosis due to repeated red blood cell transfusions (principal); K55.21 Angiodysplasia of colon with hemorrhage; C90.00 Multiple myeloma not having achieved remission

== ENCOUNTER 2024-12-10 12:00 | Day surgery (SDC) | payer OTHER, MEDICARE ==
[2024-12-10] MEDS: [UNRECOGNIZED DRUG - OTHER] IM ONE (11:56)
[2024-12-10 13:21] VITALS: BP 113/44; PULSE 60; RESP 20; TEMP 97.5
== END 2024-12-10 12:15 | disposition home or self-care (01) ==
LOC: JONCNONCHE 12:00 → J7W 12:00 → JONCNONCHE 12:15
PROVIDERS: ATTEND Internal Medicine Hematology & Oncology
PROC: 3E013GC Introduction of Other Therapeutic Substance into Subcutaneous Tissue, Percutaneous Approach (ICD-10-PCS; principal; 2024-12-10)
DX: E83.111 Hemochromatosis due to repeated red blood cell transfusions (principal); K55.21 Angiodysplasia of colon with hemorrhage

== ENCOUNTER 2024-12-14 14:59 | Inpatient (IN) | payer OTHER, MEDICARE ==
[2024-12-14 15:05] VITALS: BMI 24.1
[2024-12-14 16:25] LABS: MCHC 32.2 g/dl (32.2-35.5); MEAN CELL VOLUME 100.4 fl (79.4-94.8); MEAN PLT VOLUME 11.1 fl (9.4-12.3); RDW 23.8 % (12.4-16.6)
[2024-12-14 16:34] LABS: INR 0.98 (0.83-1.09); PROTHROMBIN TIME (PATIENT) 10.7 SEC (9.7-13.0)
[2024-12-14 16:38] LABS: ACTIVATED PTT 22.0 SECONDS (25.2-36.5)
[2024-12-14 17:01] LABS: CO2 24.0 mmol/L (21-32); GLUCOSE,RANDOM 127.0 mg/dL (74-106)
[2024-12-14 17:03] LABS: SGOT/AST 206.0 U/L (15-37); SGPT/ALT 174.0 U/L (13-61)
[2024-12-14 17:04] LABS: CREATININE 3.7 mg/dL (0.55-1.3)
[2024-12-14 17:05] LABS: TOT PROT 5.6 g/dl (6.4-8.2)
[2024-12-14 17:06] LABS: ALK PHOS 755.0 U/L (45-117)
[2024-12-14] MEDS ORDERED: DOCUSATE SODIUM 100 MG CAPSULE (FP) PO PRN (21:00)
[2024-12-14] MEDS: INSULIN ASPART SLIDING SCALE (NOVOLOG) 1 VIAL SQ SCH (22:15)
[2024-12-14] MEDS: SODIUM CHLORIDE 1,000 ML IV SCH (22:15)
[2024-12-15 08:35] LABS: MCHC 31.4 g/dl (32.2-35.5); MEAN CELL VOLUME 100.4 fl (79.4-94.8); MEAN PLT VOLUME 10.7 fl (9.4-12.3); RDW 23.8 % (12.4-16.6)
[2024-12-15 09:02] LABS: CO2 25.0 mmol/L (21-32); GLUCOSE,RANDOM 112.0 mg/dL (74-106)
[2024-12-15 09:03] LABS: CREATININE 3.5 mg/dL (0.55-1.3)
[2024-12-15 09:05] LABS: TOT PROT 4.6 g/dl (6.4-8.2)
[2024-12-15 09:06] LABS: SGPT/ALT 140.0 U/L (13-61)
[2024-12-15 09:10] LABS: SGOT/AST 147.0 U/L (15-37)
[2024-12-15 09:19] LABS: ALK PHOS 639.0 U/L (45-117)
[2024-12-15] MEDS ORDERED: MIDAZOLAM HCL 2 MG/2 ML SINGLE DOSE VIAL ONE (11:07)
[2024-12-15] MEDS: IOHEXOL (OMNIPAQUE IV) 350 MG/ML - 100 ML BOTTLE IV ONE (13:00)
[2024-12-15] MEDS ORDERED: GLUCAGON 1 MG KIT ONE (13:04)
[2024-12-15] MEDS ORDERED: MEROPENEM 500 MG in DEXTROSE 5%-WATER 100 ML IVPB SCH (16:00)
[2024-12-15] MEDS ORDERED: VANCOMYCIN 1,000 MG in DEXTROSE 5%-WATER - 250 ML IVPB SCH (16:30)
[2024-12-15] MEDS ORDERED: PORTA CATH FLUSH 10 ML IVPUSH PRN (16:55)
[2024-12-15] MEDS ORDERED: HYDROmorphone HCL CARPU-JECT 2 MG/1 ML DISP.SYRIN IVPUSH PRN (17:16)
[2024-12-15 17:35] LABS: MCHC 31.6 g/dl (32.2-35.5); MEAN CELL VOLUME 101.4 fl (79.4-94.8); MEAN PLT VOLUME 11.8 fl (9.4-12.3); RDW 24.2 % (12.4-16.6)
[2024-12-15 17:46] LABS: INR 0.98 (0.83-1.09); PROTHROMBIN TIME (PATIENT) 10.8 SEC (9.7-13.0)
[2024-12-15 17:48] LABS: ACTIVATED PTT 27.6 SECONDS (25.2-36.5)
[2024-12-15] MEDS: MEROPENEM 500 MG in DEXTROSE 5%-WATER 100 ML IVPB SCH (17:56)
[2024-12-15 17:57] LABS: CO2 23.0 mmol/L (21-32); GLUCOSE,RANDOM 241.0 mg/dL (74-106)
[2024-12-15 18:00] LABS: CREATININE 3.3 mg/dL (0.55-1.3); SGOT/AST 167.0 U/L (15-37)
[2024-12-15 18:01] LABS: SGPT/ALT 163.0 U/L (13-61)
[2024-12-15 18:02] LABS: TOT PROT 5.3 g/dl (6.4-8.2)
[2024-12-15 18:05] LABS: ALK PHOS 670.0 U/L (45-117)
[2024-12-15] MEDS ORDERED: METOPROLOL TARTRATE 5 MG/5 ML VIAL IVPUSH PRN (18:34)
[2024-12-15] MEDS: AMINO ACIDS 4.25%/D5W 1,000 ML IV SCH (18:41)
[2024-12-15] MEDS: PANTOPRAZOLE 40 MG TABLET PO SCH (19:41)
[2024-12-15] MEDS: CALCITRIOL 0.25 MCG CAPSULE (FP) PO SCH (19:41)
[2024-12-15] MEDS: SOLIFENACIN SUCCINATE 5 MG TAB PO SCH (19:41)
[2024-12-15] MEDS: CALCIUM CARBONATE 650 MG TABLET PO SCH (19:42)
[2024-12-15] MEDS: VANCOMYCIN/WATER FOR INJ (PEG) 1,000 MG/200 ML BAG IVPB SCH (19:50)
[2024-12-15] MEDS ORDERED: ACETAMINOPHEN 1000 MG/100 ML BAG IVPB PRN (20:42)
[2024-12-15] MEDS: MUPIROCIN 2% TOPICAL OINTMENT FOR DECOLONIZATION NS SCH (21:47)
[2024-12-15] MEDS: CHLORHEXIDINE GLUCONATE 4% CLEANSER FOR DECOLONIZATION TP SCH (21:47)
[2024-12-15] MEDS ORDERED: CHLORHEXIDINE GLUCONATE 4% CLEANSER FOR DECOLONIZATION TP SCH (22:00)
[2024-12-15] MEDS ORDERED: MUPIROCIN 2% TOPICAL OINTMENT FOR DECOLONIZATION NS SCH (22:00)
[2024-12-16] MEDS ORDERED: LACTATED RINGERS SOLUTION 1,000 ML/1,000 ML INFUS.BAG IV SCH (04:00)
[2024-12-16 06:48] LABS: MCHC 31.3 g/dl (32.2-35.5); MEAN CELL VOLUME 102.2 fl (79.4-94.8); MEAN PLT VOLUME 11.6 fl (9.4-12.3); RDW 23.9 % (12.4-16.6)
[2024-12-16] MEDS ORDERED: LEVOTHYROXINE NA 75 MCG TABLET (FP) PO SCH (07:00)
[2024-12-16] MEDS ORDERED: LEVOTHYROXINE SODIUM 100 MCG 5 ML VIAL IVPUSH SCH (07:00)
[2024-12-16 07:04] LABS: CO2 23.0 mmol/L (21-32); GLUCOSE,RANDOM 196.0 mg/dL (74-106)
[2024-12-16 07:07] LABS: CREATININE 3.1 mg/dL (0.55-1.3)
[2024-12-16 07:16] LABS: LACTIC ACID 2.8 mmol/L (0.4-2.0)
[2024-12-16 07:41] LABS: MCHC 31.0 g/dl (32.2-35.5); MEAN CELL VOLUME 102.3 fl (79.4-94.8); MEAN PLT VOLUME 10.3 fl (9.4-12.3); RDW 23.9 % (12.4-16.6)
[2024-12-16] MEDS: LEVOTHYROXINE 100 MCG, LEVOTHYROXINE 75 MCG PO SCH (07:47)
[2024-12-16] MEDS: SODIUM CHLORIDE 1,000 ML IV STA (09:11)
[2024-12-16] MEDS: PANTOPRAZOLE SODIUM 40 MG VIAL IVPUSH SCH (09:28)
[2024-12-16] MEDS: REMDESIVIR 200 MG in SODIUM CHLORIDE 250 ML IVPB ONE (10:31)
[2024-12-16] MEDS: FLUCONAZOLE 200 MG/NS 100 ML IVPB ONE (10:31)
[2024-12-16] MEDS ORDERED: REMDESIVIR 100 MG in SODIUM CHLORIDE 250 ML IVPB SCH (11:00)
[2024-12-16 11:45] LABS: MCHC 32.2 g/dl (32.2-35.5); MEAN CELL VOLUME 99.6 fl (79.4-94.8); MEAN PLT VOLUME 11.3 fl (9.4-12.3); RDW 23.2 % (12.4-16.6)
[2024-12-16 12:09] LABS: CO2 23.0 mmol/L (21-32); GLUCOSE,RANDOM 126.0 mg/dL (74-106)
[2024-12-16 12:12] LABS: CREATININE 2.5 mg/dL (0.55-1.3)
[2024-12-16] MEDS: methylPREDNISolone NA SUCC 40 MG/1 ML VIAL IVPUSH SCH (12:58)
[2024-12-16] MEDS: LACTATED RINGERS SOLUTION 1,000 ML/1,000 ML INFUS.BAG IV SCH (13:02)
[2024-12-16 15:50] LABS: SGPT/ALT 114.0 U/L (13-61)
[2024-12-16 15:51] LABS: SGOT/AST 97.0 U/L (15-37)
[2024-12-16 15:52] LABS: TOT PROT 4.4 g/dl (6.4-8.2)
[2024-12-16 15:55] LABS: ALK PHOS 521.0 U/L (45-117)
[2024-12-16 19:47] LABS: MCHC 30.7 g/dl (32.2-35.5); MEAN CELL VOLUME 102.3 fl (79.4-94.8); MEAN PLT VOLUME 12.1 fl (9.4-12.3); RDW 24.1 % (12.4-16.6)
[2024-12-16] MEDS: VANCOMYCIN 1 GM PREMIX (F) 1 GM/200 ML BAG IVPB ONE (19:52)
[2024-12-16 20:11] LABS: CO2 19.0 mmol/L (21-32); GLUCOSE,RANDOM 199.0 mg/dL (74-106)
[2024-12-16 20:14] LABS: CREATININE 2.3 mg/dL (0.55-1.3)
[2024-12-16 20:15] LABS: SGOT/AST 97.0 U/L (15-37); SGPT/ALT 111.0 U/L (13-61)
[2024-12-16 20:16] LABS: TOT PROT 4.7 g/dl (6.4-8.2)
[2024-12-16 20:18] LABS: ALK PHOS 524.0 U/L (45-117)
[2024-12-17] MEDS: MEROPENEM 500 MG in DEXTROSE 5%-WATER 100 ML IVPB SCH (05:00)
[2024-12-17 06:55] LABS: MCHC 31.4 g/dl (32.2-35.5); MEAN CELL VOLUME 101.6 fl (79.4-94.8); MEAN PLT VOLUME 11.6 fl (9.4-12.3); RDW 23.2 % (12.4-16.6)
[2024-12-17 06:57] LABS: MCHC 31.2 g/dl (32.2-35.5); MEAN CELL VOLUME 101.5 fl (79.4-94.8); MEAN PLT VOLUME 10.1 fl (9.4-12.3); RDW 23.6 % (12.4-16.6)
[2024-12-17 07:07] LABS: CO2 21.0 mmol/L (21-32); GLUCOSE,RANDOM 187.0 mg/dL (74-106)
[2024-12-17 07:10] LABS: CREATININE 2.0 mg/dL (0.55-1.3); SGPT/ALT 103.0 U/L (13-61)
[2024-12-17 07:11] LABS: SGOT/AST 80.0 U/L (15-37)
[2024-12-17 07:12] LABS: TOT PROT 4.8 g/dl (6.4-8.2)
[2024-12-17 07:13] LABS: ALK PHOS 513.0 U/L (45-117)
[2024-12-17] MEDS: FLUCONAZOLE 100 MG/NS 50 ML IVPB SCH (10:19)
[2024-12-17] MEDS: REMDESIVIR 100 MG in SODIUM CHLORIDE 250 ML IVPB SCH (10:44)
[2024-12-17] MEDS: FUROSEMIDE 40 MG/4 ML INJECTABLE VIAL IVPUSH ONE (12:04)
[2024-12-18 07:32] LABS: MCHC 31.6 g/dl (32.2-35.5); MEAN CELL VOLUME 99.6 fl (79.4-94.8); MEAN PLT VOLUME 9.7 fl (9.4-12.3); RDW 23.6 % (12.4-16.6)
[2024-12-18 07:52] LABS: CO2 22 mmol/L (21-32); GLUCOSE,RANDOM 192 mg/dL (74-106)
[2024-12-18 07:55] LABS: CREATININE 1.6 mg/dL (0.55-1.3); SGPT/ALT 78 U/L (13-61)
[2024-12-18 07:56] LABS: SGOT/AST 56 U/L (15-37)
[2024-12-18 07:57] LABS: TOT PROT 4.7 g/dl (6.4-8.2)
[2024-12-18 08:26] LABS: ALK PHOS 438 U/L (45-117)
[2024-12-18] MEDS: FUROSEMIDE 40 MG/4 ML INJECTABLE VIAL IVPUSH SCH (09:19)
[2024-12-18] MEDS: MAGNESIUM SULFATE IN WATER 2 GM/50 ML IVPB IVPB ONE (09:26)
[2024-12-18] MEDS: LEVOTHYROXINE SODIUM 100 MCG 5 ML VIAL IVPUSH SCH (11:00)
[2024-12-18] MEDS ORDERED: DOCUSATE SODIUM 100 MG CAPSULE (FP) PO PRN (15:22)
[2024-12-18] MEDS ORDERED: PORTA CATH FLUSH 10 ML IVPUSH PRN (15:22)
[2024-12-18] MEDS: AMINO ACIDS 4.25%/D5W 1,000 ML IV SCH (16:43)
[2024-12-18] MEDS: CALCITRIOL 0.25 MCG CAPSULE (FP) PO SCH (16:44)
[2024-12-18] MEDS: INSULIN ASPART SLIDING SCALE (NOVOLOG) 1 VIAL SQ SCH (16:44)
[2024-12-18] MEDS: MEROPENEM 500 MG in DEXTROSE 5%-WATER 100 ML IVPB SCH (16:44)
[2024-12-18] MEDS: methylPREDNISolone NA SUCC 40 MG/1 ML VIAL IVPUSH SCH (17:38)
[2024-12-18] MEDS: PANTOPRAZOLE SODIUM 40 MG VIAL IVPUSH SCH (21:29)
[2024-12-18] MEDS: CALCIUM CARBONATE 650 MG TABLET PO SCH (21:30)
[2024-12-19] MEDS: FUROSEMIDE 40 MG/4 ML INJECTABLE VIAL IVPUSH SCH (09:51)
[2024-12-19] MEDS: SOLIFENACIN SUCCINATE 5 MG TAB PO SCH (09:55)
[2024-12-19 10:28] LABS: MCHC 33.2 g/dl (32.2-35.5); MEAN CELL VOLUME 97.9 fl (79.4-94.8); MEAN PLT VOLUME 9.8 fl (9.4-12.3); RDW 22.9 % (12.4-16.6)
[2024-12-19 10:56] LABS: CO2 19.0 mmol/L (21-32); GLUCOSE,RANDOM 178.0 mg/dL (74-106)
[2024-12-19 10:59] LABS: CREATININE 1.4 mg/dL (0.55-1.3); SGOT/AST 53.0 U/L (15-37); SGPT/ALT 66.0 U/L (13-61)
[2024-12-19 11:01] LABS: TOT PROT 4.6 g/dl (6.4-8.2)
[2024-12-19 11:02] LABS: ALK PHOS 415.0 U/L (45-117)
[2024-12-19] MEDS: FLUCONAZOLE 100 MG/NS 50 ML IVPB SCH (11:03)
[2024-12-19] MEDS: METOPROLOL TARTRATE 5 MG/5 ML VIAL IVPB PRN (17:49)
[2024-12-20 07:37] LABS: MCHC 32.5 g/dl (32.2-35.5); MEAN CELL VOLUME 96.8 fl (79.4-94.8); MEAN PLT VOLUME 12.1 fl (9.4-12.3); RDW 23.1 % (12.4-16.6)
[2024-12-20 08:05] LABS: CO2 19 mmol/L (21-32); GLUCOSE,RANDOM 224 mg/dL (74-106)
[2024-12-20 08:08] LABS: CREATININE 1.2 mg/dL (0.55-1.3); SGOT/AST 58 U/L (15-37); SGPT/ALT 59 U/L (13-61)
[2024-12-20 08:10] LABS: TOT PROT 4.6 g/dl (6.4-8.2)
[2024-12-20 08:11] LABS: ALK PHOS 391 U/L (45-117)
[2024-12-20] MEDS ORDERED: IOHEXOL (OMNIPAQUE IV) 350 MG/ML - 100 ML BOTTLE NGT ONE ×2 (08:38→22:00)
[2024-12-20] MEDS ORDERED: PORTA CATH FLUSH 10 ML IVPUSH PRN (10:24)
[2024-12-20] MEDS ORDERED: DOCUSATE SODIUM 100 MG CAPSULE (FP) PO PRN (10:24)
[2024-12-20] MEDS: predniSONE 40 MG, predniSONE 10 MG PO SCH (12:04)
[2024-12-20] MEDS: INSULIN ASPART SLIDING SCALE (NOVOLOG) 1 VIAL SQ SCH (12:09)
[2024-12-20] MEDS: IOHEXOL (OMNIPAQUE IV) 350 MG/ML - 100 ML BOTTLE NGT ONE (12:12)
[2024-12-20] MEDS ORDERED: CALCIUM GLUCONATE 10% - 1,000 MG/10 ML VIAL IVPB ONE (13:19)
[2024-12-20] MEDS ORDERED: AMINO ACIDS 4.25%/D5W 1,000 ML IV SCH (16:15)
[2024-12-20] MEDS: POTASSIUM CHLORIDE 10 MEQ in AMINO ACIDS 4.25%/D5W 1,000 ML IV SCH (16:16)
[2024-12-20] MEDS: KCL 10 MEQ IVPB 10 MEQ/100 ML INFUS.BAG IVPB SCH (16:16)
[2024-12-20] MEDS ORDERED: predniSONE 20 MG TABLET (UD) PO SCH ×2 (17:00→23:00)
[2024-12-20] MEDS: METOPROLOL TARTRATE 5 MG/5 ML VIAL IVPB PRN (18:08)
[2024-12-20] MEDS: CALCITRIOL 0.25 MCG CAPSULE (FP) PO SCH (18:40)
[2024-12-20] MEDS: predniSONE 20 MG TABLET (UD) PO ONE (18:44)
[2024-12-20] MEDS: CALCIUM GLUCONATE 10% - 1,000 MG/10 ML VIAL IVPB ONE (18:51)
[2024-12-20] MEDS: MEROPENEM 500 MG in DEXTROSE 5%-WATER 100 ML IVPB SCH (19:29)
[2024-12-20] MEDS: methylPREDNISolone NA SUCC 40 MG/1 ML VIAL IVPUSH SCH (19:29)
[2024-12-20] MEDS: PANTOPRAZOLE SODIUM 40 MG VIAL IVPUSH SCH (21:26)
[2024-12-20] MEDS ORDERED: diphenhydrAMINE HCL 25 MG CAPSULE (FP) PO ONE (23:00)
[2024-12-21 08:42] LABS: MCHC 31.7 g/dl (32.2-35.5); MEAN CELL VOLUME 98.1 fl (79.4-94.8); MEAN PLT VOLUME 11.1 fl (9.4-12.3); RDW 23.6 % (12.4-16.6)
[2024-12-21 09:06] LABS: CO2 20 mmol/L (21-32); GLUCOSE,RANDOM 172 mg/dL (74-106)
[2024-12-21 09:09] LABS: CREATININE 1.2 mg/dL (0.55-1.3); SGOT/AST 80 U/L (15-37); SGPT/ALT 70 U/L (13-61)
[2024-12-21 09:11] LABS: TOT PROT 4.8 g/dl (6.4-8.2)
[2024-12-21 09:14] LABS: ALK PHOS 537 U/L (45-117)
[2024-12-21 09:31] LABS: LDL CHOLESTEROL (ONLY SJRH) 94 mg/dL (5-100)
[2024-12-21] MEDS: LEVOTHYROXINE SODIUM 100 MCG 5 ML VIAL IVPUSH SCH (12:37)
[2024-12-21] MEDS: FUROSEMIDE 40 MG/4 ML INJECTABLE VIAL IVPUSH SCH (12:44)
[2024-12-21] MEDS: FLUCONAZOLE 100 MG/NS 50 ML IVPB SCH (13:50)
[2024-12-21] MEDS: CALCIUM GLUCONATE 10% - 1,000 MG/10 ML VIAL IVPB SCH (15:25)
[2024-12-21] MEDS: SODIUM PHOSPHATE - 15 MM in SODIUM CHLORIDE 250 ML IVPB ONE (18:27)
[2024-12-21] MEDS: NAPH,MB-DB/K PH,MBDB POWDER PACKET PO SCH (21:12)
[2024-12-22] MEDS ORDERED: MAG HYDROX/AL HYDROX/SIMETH 30 ML UNIT-DOSE CUP PO PRN (11:40)
[2024-12-22] MEDS: CALCIUM GLUCONATE 10% - 1,000 MG/10 ML VIAL IVPB ONE (14:56)
[2024-12-22] MEDS: PARICALCITOL 5 MCG/ML VIAL IVPUSH ONE ×2 (15:10→15:24)
[2024-12-23 06:48] LABS: MCHC 33.2 g/dl (32.2-35.5); MEAN CELL VOLUME 96.5 fl (79.4-94.8); MEAN PLT VOLUME 10.4 fl (9.4-12.3); RDW 22.6 % (12.4-16.6)
[2024-12-23 07:14] LABS: CO2 19 mmol/L (21-32); GLUCOSE,RANDOM 172 mg/dL (74-106)
[2024-12-23 07:17] LABS: CREATININE 1.0 mg/dL (0.55-1.3); SGOT/AST 69 U/L (15-37); SGPT/ALT 61 U/L (13-61)
[2024-12-23 07:19] LABS: TOT PROT 4.5 g/dl (6.4-8.2)
[2024-12-23 07:20] LABS: ALK PHOS 511 U/L (45-117)
[2024-12-23] MEDS: AMOX TR/POT CLAV 875MG/125MG TABLETS (FP) PO SCH (09:24)
[2024-12-23] MEDS: POTASSIUM CHLORIDE 10 MEQ in AMINO ACIDS 4.25%/D5W 1,000 ML IV SCH (12:01)
[2024-12-23] MEDS: CALCIUM CARBONATE SUSPENSION - 1250 MG/5 ML ML PO SCH (16:21)
[2024-12-24 07:35] LABS: MCHC 32.6 g/dl (32.2-35.5); MEAN CELL VOLUME 97.0 fl (79.4-94.8); MEAN PLT VOLUME 11.7 fl (9.4-12.3); RDW 22.6 % (12.4-16.6)
[2024-12-24 09:42] LABS: GLUCOSE,RANDOM 146.0 mg/dL (74-106)
[2024-12-24 09:45] LABS: CREATININE 1.0 mg/dL (0.55-1.3); SGOT/AST 70.0 U/L (15-37)
[2024-12-24 09:46] LABS: TOT PROT 4.8 g/dl (6.4-8.2)
[2024-12-24 10:22] LABS: ALK PHOS 548.0 U/L (45-117); CO2 19.0 mmol/L (21-32); SGPT/ALT 64.0 U/L (13-61)
[2024-12-24] MEDS: POTASSIUM CHLORIDE 10 MEQ in AMINO ACIDS 4.25%/D5W 1,000 ML IV SCH (17:16)
[2024-12-25 06:41] LABS: IMMATURE PLATELET FRACTION # 3.00 x10^3/uL; MCHC 32.3 g/dl (32.2-35.5); MEAN CELL VOLUME 97.9 fl (79.4-94.8); MEAN PLT VOLUME 12.1 fl (9.4-12.3); RDW 22.8 % (12.4-16.6)
[2024-12-25 07:12] LABS: CO2 21.0 mmol/L (21-32); GLUCOSE,RANDOM 160.0 mg/dL (74-106)
[2024-12-25 07:14] LABS: CREATININE 1.0 mg/dL (0.55-1.3); SGOT/AST 89.0 U/L (15-37); SGPT/ALT 76.0 U/L (13-61)
[2024-12-25 07:17] LABS: TOT PROT 4.8 g/dl (6.4-8.2)
[2024-12-25 07:21] LABS: ALK PHOS 636.0 U/L (45-117)
[2024-12-27 07:40] LABS: IMMATURE PLATELET FRACTION # 3.10 x10^3/uL; MCHC 32.9 g/dl (32.2-35.5); MEAN CELL VOLUME 97.9 fl (79.4-94.8); RDW 22.9 % (12.4-16.6)
[2024-12-27 08:14] LABS: CO2 23.0 mmol/L (21-32); CREATININE 1.2 mg/dL (0.55-1.3); GLUCOSE,RANDOM 167.0 mg/dL (74-106); SGPT/ALT 94.0 U/L (13-61)
[2024-12-27 08:16] LABS: TOT PROT 5.0 g/dl (6.4-8.2)
[2024-12-27 08:18] LABS: SGOT/AST 91.0 U/L (15-37)
[2024-12-27 08:22] LABS: ALK PHOS 591.0 U/L (45-117)
[2024-12-27] MEDS: BANATROL PLUS POWDER PACKET PO SCH (21:06)
[2024-12-27] MEDS: METOPROLOL TARTRATE 25 MG TABLET (FP) PO SCH (21:07)
[2024-12-27] MEDS: PRAMIPEXOLE DIHYDROCHLORIDE 0.125 MG TABLET PO SCH (21:09)
[2024-12-27] MEDS: MIRTAZAPINE 15 MG TABLET (FP) PO SCH (21:10)
[2024-12-27] MEDS: LOPERAMIDE HCL 2 MG CAPSULE PO PRN (22:56)
[2024-12-27] MEDS: MELATONIN 5 MG TABLETS PO PRN (22:56)
[2024-12-28 02:16] VITALS: RESP 18
[2024-12-28] MEDS ORDERED: LEVOTHYROXINE NA 150 MCG TABLET PO SCH (07:00)
[2024-12-28] MEDS: LEVOTHYROXINE 75 MCG, LEVOTHYROXINE 100 MCG PO SCH (07:36)
[2024-12-28 07:58] LABS: IMMATURE PLATELET FRACTION # 3.80 x10^3/uL; MCHC 32.3 g/dl (32.2-35.5); MEAN CELL VOLUME 97.8 fl (79.4-94.8); RDW 22.8 % (12.4-16.6)
[2024-12-28 08:37] LABS: CO2 22.0 mmol/L (21-32); GLUCOSE,RANDOM 132.0 mg/dL (74-106)
[2024-12-28 08:40] LABS: CREATININE 1.3 mg/dL (0.55-1.3); SGOT/AST 92.0 U/L (15-37); SGPT/ALT 98.0 U/L (13-61)
[2024-12-28 08:41] LABS: TOT PROT 5.0 g/dl (6.4-8.2)
[2024-12-28 08:43] LABS: ALK PHOS 599.0 U/L (45-117)
[2024-12-28] MEDS: TORSEMIDE 20 MG TABLET (FP) PO SCH (09:11)
[2024-12-28] MEDS: SOLIFENACIN SUCCINATE 5 MG TAB PO SCH (09:12)
[2024-12-28] MEDS: FAMOTIDINE 20 MG TABLET PO SCH (09:12)
[2024-12-28] MEDS: predniSONE 10 MG TABLET (UD) PO SCH (09:12)
[2024-12-28 15:03] VITALS: TEMP 97.9
[2024-12-28 17:14] VITALS: BP 113/75; PULSE 86
== END 2024-12-28 17:05 | DRG 444 ==
LOC: JER 14:59 → JERBED 17:15 → J6S 23:41 → JICU 12-15 16:39 → OBSVTOIN 12-16 08:58 → J6S 12-18 14:53 → J4S 12-20 00:07
PROVIDERS: ADMIT Internal Medicine; ATTEND Family Medicine
PROC: 0F798ZZ Dilation of Common Bile Duct, Via Natural or Artificial Opening Endoscopic (ICD-10-PCS; 2024-12-15)
PROC: BF11YZZ Fluoroscopy of Biliary and Pancreatic Ducts using Other Contrast (ICD-10-PCS; 2024-12-15)
PROC: XFJB8A7 Inspection of Hepatobiliary Duct using Single-use Duodenoscope, New Technology Group 7 (ICD-10-PCS; 2024-12-15)
PROC: 0DJ08ZZ Inspection of Upper Intestinal Tract, Via Natural or Artificial Opening Endoscopic (ICD-10-PCS; 2024-12-15)
PROC: BD47ZZZ Ultrasonography of Gastrointestinal Tract (ICD-10-PCS; 2024-12-15)
PROC: XW033E5 Introduction of Remdesivir Anti-infective into Peripheral Vein, Percutaneous Approach, New Technology Group 5 (ICD-10-PCS; principal; 2024-12-15 14:15)
PROC: 05HY33Z Insertion of Infusion Device into Upper Vein, Percutaneous Approach (ICD-10-PCS; 2024-12-16)
DX: K83.1 Obstruction of bile duct (principal); E43 Unspecified severe protein-calorie malnutrition; K63.1 Perforation of intestine (nontraumatic); K83.2 Perforation of bile duct; U07.1 COVID-19; C90.00 Multiple myeloma not having achieved remission; N17.9 Acute kidney failure, unspecified; Z68.1 Body mass index [BMI] 19.9 or less, adult; E87.20 Acidosis, unspecified; E03.9 Hypothyroidism, unspecified; D69.6 Thrombocytopenia, unspecified; I25.10 Atherosclerotic heart disease of native coronary artery without angina pectoris; E78.5 Hyperlipidemia, unspecified; E83.51 Hypocalcemia; I12.9 Hypertensive chronic kidney disease with stage 1 through stage 4 chronic kidney disease, or unspecified chronic kidney disease; E11.22 Type 2 diabetes mellitus with diabetic chronic kidney disease; R74.01 Elevation of levels of liver transaminase levels; N18.9 Chronic kidney disease, unspecified; E11.65 Type 2 diabetes mellitus with hyperglycemia
CPT/HCPCS: 0241U-QW; 36415; 71045-TC-FY; 74018-TC-FY; 74176-TC; 74246-TC-FY; 76000-TC-FY; 80048; 80053; 80061; 80076; 82150; 82962; 82977; 83605; 83690; 83735; 84100; 84439; 84443; 85025; 85027; 85610; 85730; 86140; 86850; 86900; 86901; 87040; 93005; 93010; 96372; 97116-GP; 97162-GP; 99285-25; G0378; G0480; J0248

== ENCOUNTER 2025-02-02 15:46 | Inpatient (IN) | payer OTHER, MEDICARE ==
[2025-02-02 16:13] VITALS: RESP 18
[2025-02-02 17:18] LABS: MCHC 30.7 g/dl (32.2-35.5); MEAN CELL VOLUME 105.4 fl (79.4-94.8); MEAN PLT VOLUME 10.6 fl (9.4-12.3); RDW 24.1 % (12.4-16.6)
[2025-02-02 17:30] LABS: INR 1.13 (0.83-1.09); PROTHROMBIN TIME (PATIENT) 12.3 SEC (9.7-13.0)
[2025-02-02 17:32] LABS: ACTIVATED PTT 27.6 SECONDS (25.2-36.5)
[2025-02-02 17:33] LABS: GLUCOSE,RANDOM 186.0 mg/dL (74-106); TOT PROT 4.8 g/dl (6.4-8.2)
[2025-02-02 17:34] LABS: CO2 30.0 mmol/L (21-32)
[2025-02-02 17:36] LABS: ALK PHOS 681.0 U/L (40-150)
[2025-02-02 17:38] LABS: CREATININE 2.34 mg/dL (0.55-1.3); SGOT/AST 142.0 U/L (5-34); SGPT/ALT 72.0 U/L (0-55)
[2025-02-02] MEDS: INSULIN ASPART SLIDING SCALE (NOVOLOG) 1 VIAL SQ SCH (21:32)
[2025-02-02] MEDS ORDERED: INSULIN ASPART SLIDING SCALE (NOVOLOG) 1 VIAL SQ ONE (21:42)
[2025-02-03] MEDS: LEVOTHYROXINE 75 MCG, LEVOTHYROXINE 100 MCG PO SCH (06:40)
[2025-02-03] MEDS ORDERED: LEVOTHYROXINE NA 150 MCG TABLET PO SCH (07:00)
[2025-02-03 09:03] LABS: MCHC 33.2 g/dl (32.2-35.5); MEAN CELL VOLUME 92.1 fl (79.4-94.8); MEAN PLT VOLUME 11.9 fl (9.4-12.3); RDW 22.9 % (12.4-16.6)
[2025-02-03 09:15] LABS: INR 1.05 (0.83-1.09); PROTHROMBIN TIME (PATIENT) 11.6 SEC (9.7-13.0)
[2025-02-03 09:18] LABS: ACTIVATED PTT 26.0 SECONDS (25.2-36.5)
[2025-02-03 09:57] LABS: GLUCOSE,RANDOM 88.0 mg/dL (74-106)
[2025-02-03 09:58] LABS: TOT PROT 5.0 g/dl (6.4-8.2)
[2025-02-03 09:59] LABS: CO2 26.0 mmol/L (21-32)
[2025-02-03 10:00] LABS: ALK PHOS 684.0 U/L (40-150); IRON SERUM 148 ug/dL (50-175)
[2025-02-03] MEDS ORDERED: PATIENT'S OWN MEDICATION (NON-FORMULARY) (Levothyroxine Sodium [Levothyroxine Sodium] 175 PO SCH (10:00)
[2025-02-03 10:03] LABS: CREATININE 2.36 mg/dL (0.55-1.3); SGOT/AST 154.0 U/L (5-34); SGPT/ALT 74.0 U/L (0-55)
[2025-02-03] MEDS: LACTATED RINGERS SOLUTION 1,000 ML/1,000 ML INFUS.BAG IV SCH (11:16)
[2025-02-03 13:31] VITALS: BMI 17.6
[2025-02-03 15:12] LABS: MCHC 33.6 g/dl (32.2-35.5); MEAN CELL VOLUME 91.9 fl (79.4-94.8); MEAN PLT VOLUME 12.2 fl (9.4-12.3); RDW 23.0 % (12.4-16.6)
[2025-02-03] MEDS: CALCITRIOL 0.25 MCG CAPSULE (FP) PO SCH (16:27)
[2025-02-03] MEDS: CALCIUM CARBONATE 650 MG TABLET PO SCH (22:49)
[2025-02-03] MEDS: CALCIUM CARBONATE SUSPENSION - 1250 MG/5 ML ML PO SCH (23:27)
[2025-02-04 00:45] LABS: GLUCOSE,RANDOM 103.0 mg/dL (74-106)
[2025-02-04 00:47] LABS: CO2 18.0 mmol/L (21-32)
[2025-02-04 00:49] LABS: LDH 355.0 U/L (84-246)
[2025-02-04 00:51] LABS: CREATININE 2.34 mg/dL (0.55-1.3)
[2025-02-04] MEDS ORDERED: LEVOTHYROXINE NA 100 MCG TABLET (FP) ONE (07:06)
[2025-02-04 08:33] LABS: IMMATURE PLATELET FRACTION # 2.70 x10^3/uL; MCHC 32.8 g/dl (32.2-35.5); MEAN CELL VOLUME 91.8 fl (79.4-94.8); MEAN PLT VOLUME 12.4 fl (9.4-12.3); RDW 23.8 % (12.4-16.6)
[2025-02-04 09:10] LABS: GLUCOSE,RANDOM 73.0 mg/dL (74-106)
[2025-02-04 09:11] LABS: TOT PROT 4.6 g/dl (6.4-8.2)
[2025-02-04 09:12] LABS: CO2 26.0 mmol/L (21-32)
[2025-02-04 09:16] LABS: SGOT/AST 151.0 U/L (5-34); SGPT/ALT 72.0 U/L (0-55)
[2025-02-04 09:17] LABS: CREATININE 2.13 mg/dL (0.55-1.3)
[2025-02-04 09:44] LABS: ALK PHOS 699.0 U/L (40-150)
[2025-02-04] MEDS ORDERED: methylPREDNISolone NA SUCC 40 MG/1 ML VIAL IVPUSH SCH (10:00)
[2025-02-04] MEDS: LACTATED RINGERS SOLUTION 1,000 ML/1,000 ML INFUS.BAG IV SCH (10:25)
[2025-02-04 11:19] LABS: EPI CELLS >36 /uL (0-25.1); HYALINE CASTS 4 /uL (0-3.1); URINE APPEARANCE TURBID; URINE BACTERIA 5671 /uL (0-1359); URINE BILIRUBIN NEGATIVE (NEGATIVE); URINE COLOR DK YELLOW; URINE GLUCOSE (UA) NEGATIVE (NEGATIVE); URINE KETONE NEGATIVE (NEGATIVE); URINE LEUK ESTERASE 3+ (NEGATIVE); URINE NITRITE NEGATIVE (NEGATIVE); URINE PROTEIN 2+ (NEGATIVE); URINE UROBILINOGEN 1.0 mg/dL (0.2-1.0); URINE WBC 92 /uL (0-25.8)
[2025-02-04 11:46] LABS: URINE RBC 28.7 /uL (0-23.9)
[2025-02-04 11:47] LABS: URINE CRYSTALS PRESENT /hpf; YEAST NONE SEEN (NEGATIVE)
[2025-02-05 08:24] LABS: MEAN CELL VOLUME 93.1 fl (79.4-94.8)
[2025-02-05 08:26] LABS: IMMATURE PLATELET FRACTION # 2.90 x10^3/uL; MCHC 33.1 g/dl (32.2-35.5); RDW 23.2 % (12.4-16.6)
[2025-02-05 09:05] LABS: GLUCOSE,RANDOM 75 mg/dL (74-106)
[2025-02-05 09:06] LABS: TOT PROT 4.2 g/dl (6.4-8.2)
[2025-02-05 09:07] LABS: CO2 28 mmol/L (21-32)
[2025-02-05 09:10] LABS: LDH 251 U/L (84-246)
[2025-02-05 09:11] LABS: CREATININE 1.98 mg/dL (0.55-1.3); SGOT/AST 137 U/L (5-34); SGPT/ALT 65 U/L (0-55)
[2025-02-05 09:18] LABS: ALK PHOS 680 U/L (40-150)
[2025-02-05] MEDS: LIDOCAINE 1%/EPI 1:100000 (20 ML MULTI DOSE VIAL) IJ ONE (12:49)
[2025-02-05 13:02] LABS: IRON SERUM 105 ug/dL (50-175)
[2025-02-05] MEDS: methylPREDNISolone NA SUCC 40 MG/1 ML VIAL IVPUSH SCH (17:47)
[2025-02-05] MEDS: PRAMIPEXOLE DIHYDROCHLORIDE 0.125 MG TABLET PO SCH (21:14)
[2025-02-06 11:36] LABS: IMMATURE PLATELET FRACTION # 2.60 x10^3/uL; MCHC 32.7 g/dl (32.2-35.5); MEAN CELL VOLUME 93.5 fl (79.4-94.8); RDW 22.5 % (12.4-16.6)
[2025-02-06 11:58] LABS: GLUCOSE,RANDOM 174 mg/dL (74-106)
[2025-02-06 11:59] LABS: TOT PROT 4.3 g/dl (6.4-8.2)
[2025-02-06 12:00] LABS: CO2 27 mmol/L (21-32)
[2025-02-06 12:04] LABS: CREATININE 1.85 mg/dL (0.55-1.3); SGOT/AST 141 U/L (5-34); SGPT/ALT 21 U/L (0-55)
[2025-02-06 12:06] LABS: ALK PHOS 652 U/L (40-150)
[2025-02-06 15:06] LABS: IRON SERUM 99 ug/dL (50-175)
[2025-02-07 08:21] LABS: IMMATURE PLATELET FRACTION # 3.80 x10^3/uL; MCHC 32.7 g/dl (32.2-35.5); MEAN CELL VOLUME 92.8 fl (79.4-94.8); MEAN PLT VOLUME 12.6 fl (9.4-12.3); RDW 22.0 % (12.4-16.6)
[2025-02-07 08:23] LABS: GLUCOSE,RANDOM 88.0 mg/dL (74-106); TOT PROT 4.5 g/dl (6.4-8.2)
[2025-02-07 08:24] LABS: CO2 24.0 mmol/L (21-32)
[2025-02-07 08:28] LABS: SGOT/AST 146.0 U/L (5-34); SGPT/ALT 35.0 U/L (0-55)
[2025-02-07 08:29] LABS: CREATININE 1.62 mg/dL (0.55-1.3)
[2025-02-07 08:48] LABS: ALK PHOS 603.0 U/L (40-150)
[2025-02-07] MEDS: POLYETHYLENE GLYCOL (HEALTHYLAX) 3350 17 GM PACKET PO SCH (11:12)
[2025-02-08 08:49] LABS: IMMATURE PLATELET FRACTION # 4.80 x10^3/uL; MCHC 32.4 g/dl (32.2-35.5); MEAN CELL VOLUME 93.9 fl (79.4-94.8); RDW 22.7 % (12.4-16.6)
[2025-02-08 09:30] LABS: GLUCOSE,RANDOM 69.0 mg/dL (74-106); TOT PROT 4.7 g/dl (6.4-8.2)
[2025-02-08 09:31] LABS: CO2 26.0 mmol/L (21-32)
[2025-02-08 09:36] LABS: CREATININE 1.67 mg/dL (0.55-1.3); SGOT/AST 155.0 U/L (5-34); SGPT/ALT 29.0 U/L (0-55)
[2025-02-08] MEDS: ACETAMINOPHEN 325 MG TABLET (FP) PO PRN (10:06)
[2025-02-08] MEDS: BISACODYL 10 MG SUPP.RECT PR ONE (10:07)
[2025-02-08 10:24] LABS: ALK PHOS 719.0 U/L (40-150)
[2025-02-09 08:46] LABS: IMMATURE PLATELET FRACTION # 3.40 x10^3/uL; MCHC 32.1 g/dl (32.2-35.5); MEAN CELL VOLUME 94.4 fl (79.4-94.8); MEAN PLT VOLUME 11.0 fl (9.4-12.3); RDW 22.5 % (12.4-16.6)
[2025-02-09 09:22] VITALS: TEMP 97.5
[2025-02-09 09:27] LABS: GLUCOSE,RANDOM 80.0 mg/dL (74-106)
[2025-02-09 09:28] LABS: CO2 25.0 mmol/L (21-32)
[2025-02-09 09:31] LABS: LDH 217.0 U/L (84-246)
[2025-02-09 09:33] LABS: CREATININE 1.54 mg/dL (0.55-1.3)
[2025-02-09 13:17] VITALS: BP 108/56; PULSE 67
== END 2025-02-09 17:20 | DRG 841 ==
LOC: JER 15:46 → JERBED 18:19 → J6S 19:49
PROVIDERS: ADMIT Internal Medicine; ATTEND Internal Medicine
PROC: 30233N1 Transfusion of Nonautologous Red Blood Cells into Peripheral Vein, Percutaneous Approach (ICD-10-PCS; 2025-02-02)
PROC: 0HB5XZZ Excision of Chest Skin, External Approach (ICD-10-PCS; principal; 2025-02-05)
DX: C90.00 Multiple myeloma not having achieved remission (principal); D61.818 Other pancytopenia; N17.9 Acute kidney failure, unspecified; D50.9 Iron deficiency anemia, unspecified; I12.9 Hypertensive chronic kidney disease with stage 1 through stage 4 chronic kidney disease, or unspecified chronic kidney disease; I25.10 Atherosclerotic heart disease of native coronary artery without angina pectoris; E78.5 Hyperlipidemia, unspecified; E11.9 Type 2 diabetes mellitus without complications; E03.9 Hypothyroidism, unspecified; R16.2 Hepatomegaly with splenomegaly, not elsewhere classified; N18.30 Chronic kidney disease, stage 3 unspecified; D69.2 Other nonthrombocytopenic purpura; E83.51 Hypocalcemia; G20.A1 Parkinson's disease without dyskinesia, without mention of fluctuations; K59.00 Constipation, unspecified
CPT/HCPCS: 36415; 36430; 80048; 80053; 81003; 82248; 82272; 82570; 82595; 82728; 82962; 83010; 83540; 83550; 83615; 83735; 84100; 84156; 84439; 84443; 84481; 85025; 85027; 85610; 85730; 86160; 86162; 86431; 86850; 86880; 86900; 86901; 86922; 88305-TC; 93005; 93010; 99285-25; P9058